=== PATIENT | female | born 1970 | race Two or more races ===

== ENCOUNTER → 2020-07-30 13:58 | Outpatient (BNVA) | payer OTHER, SELFPAY | PROVIDERS: PCP Internal Medicine; Visit Provider Nurse Practitioner | DX: L73.2 Hidradenitis suppurativa (principal); K21.9 Gastro-esophageal reflux disease without esophagitis; K59.04 Chronic idiopathic constipation; R14.0 Abdominal distension (gaseous); Z79.899 Other long term (current) drug therapy | CPT/HCPCS: 99203; 99213 ==

== ENCOUNTER → 2020-08-04 12:39 | Outpatient (BNVA) | payer OTHER, SELFPAY | PROVIDERS: PCP Internal Medicine; Referring Provider Internal Medicine; Visit Provider Internal Medicine | DX: Z01.810 Encounter for preprocedural cardiovascular examination (principal); I25.10 Atherosclerotic heart disease of native coronary artery without angina pectoris; I25.42 Coronary artery dissection; I51.3 Intracardiac thrombosis, not elsewhere classified; I10 Essential (primary) hypertension; E78.5 Hyperlipidemia, unspecified; Z86.73 Personal history of transient ischemic attack (TIA), and cerebral infarction without residual deficits; Z79.82 Long term (current) use of aspirin; Z79.899 Other long term (current) drug therapy | CPT/HCPCS: 93005; 99215 ==

== ENCOUNTER 2020-08-21 07:51 | Day surgery (SDC) | payer OTHER, SELFPAY ==
[2020-08-17 11:37] VITALS: BMI 32.9
--- NOTE | 2020-08-20 09:17 | P.CONAN_ITS ---
Documented by User: Lillian Hale 08/20/20 09:30 HPI - Anesthesia Eval Consult details Narrative: 50yo F for Excision Axillary Hidradenitis Cardiac cleared @ [facility] Past Medical History Medical History (Updated 08/20/20 @ 09:20 by Lillian Hale) Acute angle-closure glaucoma Anxiety and depression Apical mural thrombus Carotid stenosis Cerebrovascular accident, embolic Chronic kidney disease (CKD) stage G3b/A1, moderately decreased glomerular filtration rate (GFR) between 30-44 mL/min/1.73 square meter and albuminuria creatinine ratio less than 30 mg/g Coronary artery disease Coronary artery dissection CVA (cerebral vascular accident) Essential hypertension GERD (gastroesophageal reflux disease) H. pylori infection Hidradenitis suppurativa of right axilla Hypercholesterolemia Hyperlipidemia, unspecified Hypertension Obesity (BMI 30-39.9) Peripheral vascular disease Type 2 diabetes mellitus with hyperglycemia Family History Family History Mother Type 2 diabetes mellitus Hypertension Maternal Grandmother Myocardial infarction Surgical History Surgical History (Updated 08/17/20 @ 11:30 by Agnieszka Landon) Amputation of right index finger History of angioplasty History of cardiac catheterization (~03/30/16) History of endometrial ablation History of esophagogastroduodenoscopy (EGD) History of tubal ligation S/P LILY-BSO Social History Social History Household Members: None Housing: Apartment Alcohol intake: never Smoking Status: Former smoker Advance Directives Information Provided: No service: No Current occupational status: unemployed Meds Allergies Allergy/AdvReac Type Severity Reaction Status Date / Time cephalexin [From KEFLEX] Allergy Intermediate HIVES Verified 08/13/20 08:08 Home Medications Medication Instructions Recorded Confirmed Type sennosides 8.6 mg capsule 17.2 mg PO DAILY cap 07/29/20 08/17/20 History blood sugar diagnostic #10 ea 07/30/20 08/14/20 History dulaglutide 1.5 mg/0.5 mL 1.5 mg SUBCUT QWEEK 07/30/20 08/17/20 History subcutaneous pen injector lancets 33 gauge #100 ea 07/30/20 08/14/20 History amlodipine 10 mg tablet 10 mg PO DAILY 08/04/20 08/17/20 History aspirin 81 mg tablet,delayed 81 mg PO DAILY 08/04/20 08/17/20 History release ezetimibe 10 mg tablet 10 mg PO DAILY 08/04/20 08/17/20 History metoprolol succinate 200 mg 200 mg PO DAILY 08/04/20 08/21/20 History tablet,extended release 24 hr omeprazole 20 mg capsule,delayed 20 mg PO DAILY 08/04/20 08/17/20 History release rosuvastatin 20 mg tablet 20 mg PO BEDTIME 08/04/20 08/17/20 History insulin glargine U-300 conc 300 40 unit SUBCUT DAILY ml 08/14/20 08/17/20 History unit/mL (3 mL) subcutaneous pen dulaglutide [Trulicity] 1 mg SUBCUT QWEEK 08/21/20 08/21/20 History insulin glargine U-300 conc unit SUBCUT 08/21/20 History [Toujeo Max U-300 SoloStar] insulin lispro [Admelog SoloStar 12 - 27 unit SUBCUT TID 08/21/20 08/21/20 History U-100 Insulin] insulin lispro [Admelog SoloStar unit SUBCUT 08/21/20 History U-100 Insulin] Exam Exam Date and Time: August 20, 2020916 Height,Weight and Vital Signs: Height 5 ft 5 in Weight 89.811 kg Pertinent Lab Results Pertinent Lab Results: Laboratory Tests 04/01/20 04/01/20 11:20 11:20 WBC 14.4 H Hgb 13.1 Hct 40.0 Plt Count 282 Sodium 133 L Potassium 4.6 Chloride 102 BUN 28 H Creatinine 1.61 H Narrative Narrative: EKG 08/04/20: NSR, Inferior infarct, Anterolateral infarct ECHO 03/2019: LVEF 55-60%, thinning in apex with dyskinetic motion, area not well seen - no other significant WMA Assessment and Plan Assessment Anesthesia Assessment: Chart Reviewed Documented by User: Mateo Rodríguez 08/21/20 10:24 COUNTS INCLUDE 234 BEDS AT [facility] Past Medical History Medical History (Updated 08/20/20 @ 09:20 by Lillian Hale) Acute angle-closure glaucoma Anxiety and depression Apical mural thrombus Carotid stenosis Cerebrovascular accident, embolic Chronic kidney disease (CKD) stage G3b/A1, moderately decreased glomerular filtration rate (GFR) between 30-44 mL/min/1.73 square meter and albuminuria creatinine ratio less than 30 mg/g Coronary artery disease Coronary artery dissection CVA (cerebral vascular accident) Essential hypertension GERD (gastroesophageal reflux disease) H. pylori infection Hidradenitis suppurativa of right axilla Hypercholesterolemia Hyperlipidemia, unspecified Hypertension Obesity (BMI 30-39.9) Peripheral vascular disease Type 2 diabetes mellitus with hyperglycemia Family History Family History Mother Type 2 diabetes mellitus Hypertension Maternal Grandmother Myocardial infarction Surgical History Surgical History (Updated 08/17/20 @ 11:30 by Agnieszka Landon) Amputation of right index finger History of angioplasty History of cardiac catheterization (~03/30/16) History of endometrial ablation History of esophagogastroduodenoscopy (EGD) History of tubal ligation S/P LILY-BSO Social History Social History Household Members: None Housing: Apartment Alcohol intake: never Smoking Status: Former smoker Advance Directives Information Provided: No service: No Current occupational status: unemployed Meds Allergies Allergy/AdvReac Type Severity Reaction Status Date / Time cephalexin [From KEFLEX] Allergy Intermediate HIVES Verified 08/13/20 08:08 Home Medications Medication Instructions Recorded Confirmed Type sennosides 8.6 mg capsule 17.2 mg PO DAILY cap 07/29/20 08/17/20 History blood sugar diagnostic #10 ea 07/30/20 08/14/20 History dulaglutide 1.5 mg/0.5 mL 1.5 mg SUBCUT QWEEK 07/30/20 08/17/20 History subcutaneous pen injector lancets 33 gauge #100 ea 07/30/20 08/14/20 History amlodipine 10 mg tablet 10 mg PO DAILY 08/04/20 08/17/20 History aspirin 81 mg tablet,delayed 81 mg PO DAILY 08/04/20 08/17/20 History release ezetimibe 10 mg tablet 10 mg PO DAILY 08/04/20 08/17/20 History metoprolol succinate 200 mg 200 mg PO DAILY 08/04/20 08/21/20 History tablet,extended release 24 hr omeprazole 20 mg capsule,delayed 20 mg PO DAILY 08/04/20 08/17/20 History release rosuvastatin 20 mg tablet 20 mg PO BEDTIME 08/04/20 08/17/20 History insulin glargine U-300 conc 300 40 unit SUBCUT DAILY ml 08/14/20 08/17/20 History unit/mL (3 mL) subcutaneous pen dulaglutide [Trulicity] 1 mg SUBCUT QWEEK 08/21/20 08/21/20 History insulin glargine U-300 conc unit SUBCUT 08/21/20 History [Toujeo Max U-300 SoloStar] insulin lispro [Admelog SoloStar 12 - 27 unit SUBCUT TID 08/21/20 08/21/20 History U-100 Insulin] insulin lispro [Admelog SoloStar unit SUBCUT 08/21/20 History U-100 Insulin] Exam Airway Mallampati Class: I TM Dist: >3cm Neck ROM: Full Denture: Upper and Lower Assessment and Plan Assessment Anesthesia Assessment: Anesthesia Plan Discussed and Chart Reviewed Final Anesthetic Review NPO: Yes ASA Class: IV Final Preanesthetic Review: No Changes in Pt Med Stat, Meds/Allgs Chart Reviewed, Consent Obtained/Reviewed and Anes Risks/Benef Reviewed Patient Risk: High Procedure Risk: Intermediate Anesthetic Plan Anesthetic Plan: GA and Agree w/ Assess. and Plan Disposition: Standard PACU
[2020-08-21 08:48] LABS: Glucose, Whole Blood 168 mg/dL (60-115)
[2020-08-21] MEDS: Lactated Ringers 1,000 ML 50 ML IVCONT (08:54)
[2020-08-21 08:57] VITALS: BP 155/85; PULSE 74; RESP 18; TEMP 36.3; O2SAT 99
[2020-08-21] MEDS: ceFAZolin Sodium/Dextrose,Iso 2 GM/50 ML PIGGYBACK IV (09:05)
--- NOTE | 2020-08-21 10:07 | MHC.SHP ---
Pre-Procedural Eval Section B Chief Complaint: Hidradenitis Suppurativa Allergies: Allergies Allergy/AdvReac Type Severity Reaction Status Date / Time cephalexin [From KEFLEX] Allergy Intermediate HIVES Verified 08/13/20 08:08 Plan Patient has been examined and remains a candidate for the planned procedure
[2020-08-21 11:26] VITALS: BP 158/85; PULSE 72; RESP 16; TEMP 36.7; O2SAT 99
--- NOTE | 2020-08-21 11:27 | PM.OP ---
Brief Operative Note Date of Service: 08/21/20 Pre-op diagnosis: hidradenitis right axilla Procedure: excision of hidradenits right axilla Surgeon: Ron Small MD Anesthesia: GLMA Estimated blood loss (mL): 20 Pathology: other (hidradenitis) Condition: stable Disposition: PACU
[2020-08-21 11:31] VITALS: BP 165/88; PULSE 75; RESP 18; O2SAT 98
[2020-08-21 11:36] VITALS: BP 158/80; PULSE 68; RESP 16; O2SAT 98
[2020-08-21 11:41] VITALS: BP 168/90; PULSE 67; RESP 18; O2SAT 96
[2020-08-21] MEDS: oxyCODONE HCl Immed Release 5 MG TABLET PO (11:45)
[2020-08-21] MEDS: Acetaminophen 325 MG TABLET 650 MG PO (11:45)
[2020-08-21] MEDS: Ketorolac Tromethamine 15 MG/ML VIAL IVPUSH (11:49)
[2020-08-21 11:56] VITALS: BP 171/90; PULSE 71; RESP 16; TEMP 36.7; O2SAT 97
--- NOTE | 2020-08-21 20:07 | OP_ITS ---
SURGEON: Ron Smlal MD INDICATIONS: The patient is a 50-year-old female with multiple areas of recurrent pain, swelling and drainage on the right axilla consistent with hidradenitis suppurativa. Examination revealed a wide area of induration with multiple sinuses. They were seemed to be 3 areas that were confluent and separate from each other. In order to save skin and allow primary closure, I intended to excise this wide area separately. She understood technique of procedure. She is aware of the risks, benefits, and alternatives. PREOPERATIVE DIAGNOSIS: Hidradenitis suppurativa, right axilla. POSTOPERATIVE DIAGNOSIS: Hidradenitis suppurativa, right axilla. PROCEDURE PERFORMED: Excision of hidradenitis suppurativa, right axilla. ESTIMATED BLOOD LOSS: COMPLICATIONS: ANESTHESIA: ASSISTANTS: SPECIMENS: DESCRIPTION OF PROCEDURE: She was brought to the operating room, placed supine on the table under general anesthesia via laryngeal mask airway. The right arm was abducted and taped away from the axilla to allow good exposure. The breast was also taped and retracted away from the axilla itself. The right axilla was prepped and draped in usual sterile fashion. A surgical time-out was done. The patient received cefazolin 2 g IV preoperatively. I marked planned line of incision on 3 different areas. I used lidocaine 1% infiltrated the entire area. I made my incision on the smallest area of induration using blade #15, it was carried down to full-thickness skin and subcutaneous fat to excise the entire the skin and subcutaneous layer. This sent as specimen. First area was about 2 cm in length and about 1.5 cm in width. I then made an incision in the skin on the 2nd area of induration using blade #15, it was carried down to full-thickness skin and subcutaneous fat using electrocautery. We excised the entire skin and subcutaneous fat and this was sent as specimen. This included the multiple sinuses. This area was about 6 cm long and about 3.5 cm wide. The third area adjacent to this was more medial and was about 5.5 cm long x 3 cm wide and it also excised in the same manner. We excised all the gross looking indurated skin and subcutaneous tissue. We copiously irrigated all 3 areas of excision. I closed all incisions with multiple nylon 3-0 interrupted sutures with some vertical mattress sutures to allow eversion. On the bigger incisions, I had reapposed the deep subcutaneous layer with Dexon 3-0 interrupted suture. We had made sure that there was hemostasis prior to closure. We infiltrated the entire area with Marcaine 0.5% for postop analgesia. Thick dressings were applied. The procedure was completed. The patient tolerated the procedure well. There were no complications noted. Initial and final counts of sponges and instruments were correct. Estimated blood loss about 20 mL. The patient was extubated without difficulty and transferred to recovery room with stable vital signs. MD JUN Vyas/RADHA / [id number]
== END 2020-08-21 12:51 | disposition home or self-care (01) ==
PROVIDERS: PCP Internal Medicine; Visit Provider Surgery
PROC: (CPT 11450; principal; 2020-08-21 10:40)
DX: L73.2 Hidradenitis suppurativa (principal); L72.0 Epidermal cyst; E11.22 Type 2 diabetes mellitus with diabetic chronic kidney disease; I12.9 Hypertensive chronic kidney disease with stage 1 through stage 4 chronic kidney disease, or unspecified chronic kidney disease; N18.32 Chronic kidney disease, stage 3b; Z88.1 Allergy status to other antibiotic agents; Z86.73 Personal history of transient ischemic attack (TIA), and cerebral infarction without residual deficits; Z87.891 Personal history of nicotine dependence; Z79.4 Long term (current) use of insulin; Z79.899 Other long term (current) drug therapy
CPT/HCPCS: 11450; 82947; 88305; J0690; J1885; J2250; J3010

== ENCOUNTER → 2020-09-02 09:21 | Outpatient (BNVA) | payer OTHER, SELFPAY | PROVIDERS: PCP Internal Medicine; Visit Provider Surgery | DX: L73.2 Hidradenitis suppurativa (principal) | CPT/HCPCS: 99212 ==

== ENCOUNTER 2020-09-09 12:25 | Outpatient (REF) | payer OTHER, SELFPAY ==
[2020-09-09 14:10] LABS: Anion Gap 15 (12-20); Blood Urea Nitrogen 34 mg/dL (9-16); Carbon Dioxide 19 mmol/L (22-29); Chloride 105 mmol/L (96-108); Estimated Glomerular Filt Rate 33; Potassium 4.5 mmol/l (3.3-5.1); Sodium 134 mmol/L (135-145)
[2020-09-09 15:15] LABS: Total Protein Urine Random 541 mg/dL (<12)
[2020-09-09 15:41] LABS: Creatinine Urine 117.63 mg/dL
[2020-09-09 15:43] LABS: Renal w Reflex Lab Use Only Order verified
== END 2020-09-09 12:26 | disposition home or self-care (01) ==
LOC: HO.LAB 12:25
PROVIDERS: PCP Internal Medicine; Visit Provider Internal Medicine Hypertension Specialist
DX: E11.22 Type 2 diabetes mellitus with diabetic chronic kidney disease (principal); I12.9 Hypertensive chronic kidney disease with stage 1 through stage 4 chronic kidney disease, or unspecified chronic kidney disease; N18.9 Chronic kidney disease, unspecified; D63.1 Anemia in chronic kidney disease
CPT/HCPCS: 80051; 82565; 84156; 84520

== ENCOUNTER → 2020-09-10 12:48 | Outpatient (BNVA) | payer OTHER, SELFPAY | PROVIDERS: PCP Internal Medicine; Referring Provider Internal Medicine; Visit Provider Nurse Practitioner | DX: Z76.89 Persons encountering health services in other specified circumstances (principal) ==

== ENCOUNTER → 2020-09-14 09:22 | Outpatient (BNVA) | payer OTHER, SELFPAY | PROVIDERS: PCP Internal Medicine; Referring Provider Internal Medicine; Visit Provider Surgery | DX: L73.2 Hidradenitis suppurativa (principal) | CPT/HCPCS: 99212 ==

== ENCOUNTER → 2020-09-21 12:25 | Outpatient (BNVA) | payer OTHER, SELFPAY | PROVIDERS: PCP Internal Medicine; Visit Provider Orthopaedic Surgery | DX: M75.01 Adhesive capsulitis of right shoulder (principal); Z87.891 Personal history of nicotine dependence | CPT/HCPCS: 99202 ==

== ENCOUNTER 2020-10-05 11:10 | Emergency (ER) | payer OTHER, SELFPAY ==
[2020-10-05 11:16] VITALS: BP 149/83; PULSE 77; RESP 18; TEMP 36.9; O2SAT 97; BMI 32.1
== END 2020-10-05 18:44 | disposition left against medical advice (07) ==
LOC: HO.ED 18:43
PROVIDERS: Emergency Provider Emergency Medicine Emergency Medical Services; PCP Internal Medicine
DX: R10.32 Left lower quadrant pain (principal)
CPT/HCPCS: 99281; 99282

== ENCOUNTER 2020-10-07 09:32 | Outpatient (REF) | payer OTHER, SELFPAY ==
[2020-10-07 11:08] LABS: MANUAL DIFF FLAG NO
[2020-10-07 11:19] LABS: Basophils Percent Auto 0.4 % (0-2); Eosinophils Absolute Auto 0.1 X10*3/uL (0.0-0.4); Eosinophils Percent Auto 0.9 % (0-4); Hematocrit 41.7 % (37-47); Hemoglobin 13.6 g/dl (12.0-16.0); Imm Gran Abs Auto 0.03 X10*3/uL (0.00-0.03); Imm Gran Pct Auto 0.3 % (0.0-0.4); Lymphocytes Absolute Auto 2.6 X10*3/uL (1.2-4.9); Lymphocytes Percent Auto 26.8 % (20-40); Mean Corpuscular HGB Conc 32.6 g/dl (31.0-35.0); Mean Corpuscular Hemoglobin 26.6 pg (27.0-33.0); Mean Corpuscular Volume 81.4 fL (80-98); Mean Platelet Volume 11.5 fL (9.4-12.3); Monocytes Absolute Auto 0.8 X10*3/uL (0.1-1.2); Monocytes Percent Auto 7.8 % (2-11); Neutrophils Absolute Auto 6.1 X10*3/uL (2.0-8.3); Neutrophils Percent Auto 63.8 % (45-73); Platelet Count 269 X10*3/uL (160-400); Red Blood Count 5.12 X10*6/uL (4.20-5.50); Red Cell Distribution Width 14.1 % (11.0-16.0); White Blood Count 9.6 X10*3/uL (4.8-10.8)
[2020-10-07 11:54] LABS: Alanine Aminotransferase 24 U/L (0-31); Albumin Level 3.8 g/dL (3.5-5.0); Alkaline Phosphatase 83 U/L (39-117); Anion Gap 13 (12-20); Aspartate Amino Transferase 17 U/L (5-31); Bilirubin Total 0.3 mg/dL (0.0-1.0); Blood Urea Nitrogen 35 mg/dL (9-16); Calcium 9.2 mg/dL (8.4-10.2); Carbon Dioxide 21 mmol/L (22-29); Chloride 105 mmol/L (96-108); Cholesterol 144 mg/dL; Estimated Glomerular Filt Rate 31; Glucose Random 267 mg/dL (60-115); HDL Cholesterol 42 mg/dL; LDL Cholesterol Calculated 76 mg/dl; Potassium 4.8 mmol/l (3.3-5.1); Sodium 134 mmol/L (135-145); Total Protein 7.1 g/dL (6.5-8.0); Triglycerides 132 mg/dL
[2020-10-07 11:58] LABS: Free T4 (Free Thyroxine) 0.97 ng/dL (0.71-1.85); Thyroid Stimulating Hormone 1.02 uIU/mL (0.32-4.0)
[2020-10-07 12:28] LABS: Creatinine Urine 134.03 mg/dL
[2020-10-07 13:03] LABS: Protein/Creatinine Ratio, Ur 4.05 (<0.2); Total Protein Urine Random 536 mg/dL (<12)
[2020-10-08 08:58] LABS: LDL Cholesterol Direct 72 mg/dL (<100)
== END 2020-10-07 09:33 | disposition home or self-care (01) ==
LOC: HO.LAB 09:32
PROVIDERS: Internal Medicine Endocrinology, Diabetes & Metabolism; PCP Internal Medicine; Visit Provider Internal Medicine
DX: E78.5 Hyperlipidemia, unspecified (principal); E11.65 Type 2 diabetes mellitus with hyperglycemia
CPT/HCPCS: 36415; 80053; 80061; 82043; 83721; 84156; 84439; 84443; 85025

== ENCOUNTER 2020-10-08 09:29 | Outpatient (REF) | payer OTHER, SELFPAY ==
--- NOTE | 2020-10-08 09:30 | EMG_ITS ---
Bilateral median and ulnar motor and sensory studies were performed. Bilateral radial sensory studies were performed and paraspinal muscles were tested with a needle. IMPRESSION: 1. [id number] bilateral median neuropathy across carpal tunnel. 2. Mild bilateral ulnar neuropathy across cubital tunnel. 3. Left Werner-Ceci anastomosis, normal variant. 4. Underlying axonal peripheral neuropathy. MD CORDELL Mckeon/RADHA / [id number]
== END 2020-10-08 09:30 | disposition home or self-care (01) ==
LOC: HO.NEURO 09:29
PROVIDERS: PCP Internal Medicine; Visit Provider Internal Medicine
DX: R20.0 Anesthesia of skin (principal)
CPT/HCPCS: 95860; 95911

== ENCOUNTER → 2020-10-13 09:18 | Outpatient (BNVA) | payer OTHER, SELFPAY | PROVIDERS: PCP Internal Medicine; Referring Provider Internal Medicine; Visit Provider Internal Medicine Endocrinology, Diabetes & Metabolism | DX: Z76.89 Persons encountering health services in other specified circumstances (principal) ==

== ENCOUNTER 2020-10-21 10:00 | Outpatient (RCR) | payer OTHER, SELFPAY ==
--- NOTE | 2020-11-24 14:53 | MHC.PT.DC ---
[facility] [place] Office [place] Office [place] Office [address] Shyanne Henry [address] [phone] F: [phone] F: [phone] F: [phone] F: [phone] Physical Therapy Discharge Report Diagnosis: right shoulder Pain Date of Surgery: Date of Evaluation: 10/05/20 Date of Discharge: 11/24/20 Treatments to Date: 6 Cancellations to Date: 0 No Shows to Date: 0 Discharge Status: Patient Elected to Stop Discharge Summary: Pt d/c self from therapy as she was undergoing some surgery near her arm pit region. Electronically signed by: Annette Madrigal DPT Please sign and return to therapist. Thank you for your referral.
== END 2020-11-24 14:53 | disposition other institution (70) ==
LOC: HO.PT 10:00
PROVIDERS: PCP Internal Medicine; Visit Provider Orthopaedic Surgery
DX: M75.01 Adhesive capsulitis of right shoulder (principal)
CPT/HCPCS: 97110; 97112; 97140; 97163

== ENCOUNTER → 2020-10-26 13:35 | Outpatient (BNVA) | payer OTHER, SELFPAY | PROVIDERS: PCP Internal Medicine; Visit Provider Nurse Practitioner ==

== ENCOUNTER → 2020-11-02 11:39 | Outpatient (BNVA) | payer OTHER, SELFPAY | PROVIDERS: PCP Internal Medicine; Visit Provider Surgery | DX: L73.2 Hidradenitis suppurativa (principal) | CPT/HCPCS: 99212 ==

== ENCOUNTER → 2020-11-12 15:28 | Outpatient (BNVA) | payer OTHER, SELFPAY | PROVIDERS: PCP Internal Medicine; Visit Provider Surgery | DX: L73.2 Hidradenitis suppurativa (principal) | CPT/HCPCS: 99212 ==

== ENCOUNTER → 2020-11-19 14:03 | Outpatient (BNVA) | payer OTHER, SELFPAY | PROVIDERS: Visit Provider Surgery | DX: L73.2 Hidradenitis suppurativa (principal) | CPT/HCPCS: 99212 ==

== ENCOUNTER → 2020-11-20 08:22 | Outpatient (REF) | payer OTHER, SELFPAY ==
--- NOTE | ~2020-11-20 | NM_ITS ---
EXAMINATION: RADIONUCLIDE SOLID FOOD GASTRIC EMPTYING 4-HOUR STUDY CLINICAL INFORMATION: Nausea, diabetes, GERD, bloating. COMPARISON: No previous gastric emptying study is available for comparison. TECHNIQUE: A standard meal consisting of 4 oz of Egg Beaters brand equivalent tagged was 1.0 mCi Tc-99m Sulfur Colloid, 8 oz water and 2 slices of toast with jelly was administered orally to the patient. Images were obtained using a dual head gamma camera in the anterior and posterior projections over of the stomach immediately post ingestion and at hourly intervals up to 4 hours post ingestion. The anterior and posterior counts at each time interval were averaged using the geometric mean and expressed as percentage of the immediate post ingestion counts. FINDINGS: There is good visualization of activity in the stomach immediately post ingestion. As the study progresses, there is good clearance of activity from the stomach and visualization of progressively increasing small bowel activity. At the end of the study at 4 hours, there is minimal abnormal retention of activity in the stomach. Retention in the stomach at each time interval was: 1 hour 59% (normal 37%-90%) 2 hours 24% (normal 30%-60%) 3 hours 18% 4 hours 11% (normal 0%-10%) NM/NM gastric emptying study IMPRESSION: Abnormal study. There is minimal abnormal retention of solid food in the stomach at 4 hours.
== END ==
LOC: HO.NUCMED 08:22
PROVIDERS: Visit Provider Internal Medicine Endocrinology, Diabetes & Metabolism
DX: E11.65 Type 2 diabetes mellitus with hyperglycemia (principal); Z79.4 Long term (current) use of insulin
CPT/HCPCS: 78264; A9541

== ENCOUNTER 2020-11-27 09:11 | Day surgery (SDC) | payer OTHER, SELFPAY ==
[2020-11-20 15:04] VITALS: BMI 31.6
--- NOTE | 2020-11-26 09:06 | P.CONAN_ITS ---
Documented by User: Lillian Hale 11/26/20 12:01 HPI - Anesthesia Eval Consult details Narrative: 50yo F for Excision of Axilliary Hidradenitis Cardiac cleared @ [facility] s/p Right hidradenitis with GA-LMA 3 08/2020 [facility] Active Problems Active Problems: All Active Problems (Updated 11/20/20 @ 15:00 by Louann Cespedes) Calcific tendinitis of right shoulder (Acute) Back pain (Acute) Carpal tunnel syndrome on both sides (Acute) Chronic idiopathic constipation (Acute) Insomnia (Acute) Axillary hidradenitis suppurativa (Acute) Proliferative diabetic retinopathy associated with type 2 diabetes mellitus (Acute) Diabetic polyneuropathy associated with type 2 diabetes mellitus (Acute) Diabetic nephropathy associated with type 2 diabetes mellitus (Acute) intermediate (current) use of insulin (Acute) Adhesive capsulitis of right shoulder (Acute) Hyperlipidemia, unspecified (Acute) Essential hypertension (Acute) Cerebrovascular accident, embolic (Acute) Apical mural thrombus (Acute) Coronary artery dissection (Acute) Hidradenitis suppurativa of right axilla (Acute) GERD (gastroesophageal reflux disease) (Acute) Hypertension (Acute) Coronary artery disease (Acute) Hypercholesterolemia (Acute) Obesity (BMI 30-39.9) (Acute) Type 2 diabetes mellitus with hyperglycemia (Acute) Chronic kidney disease (CKD) stage G3b/A1, moderately decreased glomerular donny tration rate (GFR) between 30-44 mL/min/1.73 square meter and albuminuria creatinine ratio less than 30 mg/g (Acute) Past Medical History Medical History (Updated 11/27/20 @ 11:08 by Bria Maldonado) 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 Obesity (BMI 30-39.9) On beta jacqueline at home Peripheral vascular disease Proliferative diabetic retinopathy associated with type 2 diabetes mellitus Type 2 diabetes mellitus with hyperglycemia Family History Family History Mother Type 2 diabetes mellitus Hypertension Maternal Grandmother Myocardial infarction Surgical History Surgical History Amputation of right index finger History of angioplasty History of axillary surgery (08/21/20) History of cardiac catheterization (~03/30/16) History of endometrial ablation History of esophagogastroduodenoscopy (EGD) History of tubal ligation S/P LILY-BSO Social History Social History Household Members: None Housing: Apartment Are you a primary workforce investment act career manager to a significant other at home: No Do you presently have visiting nurse or other home services: No Alcohol intake: never Smoking Status: Former smoker Smoked in Last 30 Days: No Use of substances other than those prescribed or required for medical reasons: No Have you been hit, kicked, punched, or otherwise hurt by someone within the past year? If so, by whom?: No Advance Directives: No Advance Directives Information Provided: No Advance Directives on File: No Recently lost weight without trying: No service: No Current occupational status: unemployed Current occupation: right handed Meds Allergies Allergy/AdvReac Type Severity Reaction Status Date / Time cephalexin [From KEFLEX] Allergy Intermediate HIVES Verified 11/27/20 09:41 Home Medications Medication Instructions Recorded Confirmed Last Taken Type sennosides 8.6 mg capsule 17.2 mg PO DAILY cap 07/29/20 11/20/20 Unknown History blood sugar diagnostic #10 ea 07/30/20 11/19/20 Unknown History lancets 33 gauge #100 ea 07/30/20 11/19/20 Unknown History aspirin 81 mg tablet,delayed 81 mg PO DAILY 08/04/20 11/20/20 11/26/20 12:00 History release ezetimibe 10 mg tablet 10 mg PO DAILY 08/04/20 11/20/20 Unknown History alcohol swabs pad TOPICAL 10/13/20 11/19/20 Unknown History dulaglutide [Trulicity] 1 mg SUBCUT QWEEK 11/20/20 11/20/20 11/27/20 07:45 History Exam Exam Date and Time: November 26, 2020 09 Height,Weight and Vital Signs: Height 5 ft 6 in Weight 88.989 kg Pertinent Lab Results Pertinent Lab Results: Laboratory Tests 10/07/20 10/07/20 10:05 10:05 WBC 9.6 Hgb 13.6 Hct 41.7 Plt Count 269 Sodium 134 L Potassium 4.8 Chloride 105 Carbon Dioxide 21 L BUN 35 H Creatinine 1.72 H Narrative Narrative: EKG 08/04/20: NSR, Inferior infarct, Anterolateral infarct ECHO 03/2019: LVEF 55-60%, thinning in apex with dyskinetic motion, area not well seen - no other significant WMA Assessment and Plan Assessment Anesthesia Assessment: Chart Reviewed Documented by User: Bria Maldonado 11/27/20 11:09 [facility] Past Medical History Medical History (Updated 11/27/20 @ 11:08 by Bria Maldonado) 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 pylori infection Hidradenitis suppurativa of right axilla Hypercholesterolemia Hyperlipidemia, unspecified Hypertension intermediate (current) use of insulin Obesity (BMI 30-39.9) On beta jacqueline at home Peripheral vascular disease Proliferative diabetic retinopathy associated with type 2 diabetes mellitus Type 2 diabetes mellitus with hyperglycemia Family History Family History Mother Type 2 diabetes mellitus Hypertension Maternal Grandmother Myocardial infarction Family history of problems with anesthesia: No Surgical History Surgical History Amputation of right index finger History of angioplasty History of axillary surgery (08/21/20) History of cardiac catheterization (~03/30/16) History of endometrial ablation History of esophagogastroduodenoscopy (EGD) History of tubal ligation S/P LILY-BSO History of Problems with Anesthesia: No Social History Social History Household Members: None Housing: Apartment Are you a primary workforce investment act career manager to a significant other at home: No Do you presently have visiting nurse or other home services: No Alcohol intake: never Smoking Status: Former smoker Smoked in Last 30 Days: No Use of substances other than those prescribed or required for medical reasons: No Have you been hit, kicked, punched, or otherwise hurt by someone within the past year? If so, by whom?: No Advance Directives: No Advance Directives Information Provided: No Advance Directives on File: No Recently lost weight without trying: No service: No Current occupational status: unemployed Current occupation: right handed Meds Allergies Allergy/AdvReac Type Severity Reaction Status Date / Time cephalexin [From KEFLEX] Allergy Intermediate HIVES Verified 11/27/20 09:41 Home Medications Medication Instructions Recorded Confirmed Last Taken Type sennosides 8.6 mg capsule 17.2 mg PO DAILY cap 07/29/20 11/20/20 Unknown History blood sugar diagnostic #10 ea 07/30/20 11/19/20 Unknown History lancets 33 gauge #100 ea 07/30/20 11/19/20 Unknown History aspirin 81 mg tablet,delayed 81 mg PO DAILY 08/04/20 11/20/20 11/26/20 12:00 History release ezetimibe 10 mg tablet 10 mg PO DAILY 08/04/20 11/20/20 Unknown History alcohol swabs pad TOPICAL 10/13/20 11/19/20 Unknown History dulaglutide [Trulicity] 1 mg SUBCUT QWEEK 11/20/20 11/20/20 11/27/20 07:45 History Exam Height,Weight and Vital Signs: Vital Signs Temp Pulse Resp BP Pulse Ox 11/27/20 09:41 97.9 F 70 20 137/82 96 Pertinent Lab Results Pertinent Lab Results: Lab Results 11/27/20 Range/Units 10:00 POC Glucose 188 H (60-115) mg/dL 11/27/2020: 12 lead EKG NSR.64 Inf and anterolateral infarcts. No change c/w 08/04/2020 Airway Mallampati Class: II TM Dist: >3cm Neck ROM: Full Denture: Upper and Lower Heart: RRR Lungs: CTAB Assessment and Plan Assessment Anesthesia Assessment: Anesthesia Plan Discussed and Chart Reviewed Final Anesthetic Review NPO: Yes ASA Class: III Final Preanesthetic Review: No Changes in Pt Med Stat, Meds/Allgs Chart Reviewed, Consent Obtained/Reviewed and Anes Risks/Benef Reviewed Patient Risk: Intermediate Assessment/Block/Sedation in SS: Assess/Block/Sedation-SS Anesthetic Plan Anesthetic Plan: GA Disposition: Standard PACU
[2020-11-27] VITALS (11 sets, daily range): BP systolic 131–154; BP diastolic 56–86; PULSE 64–74; RESP 16–20; TEMP 36.1–36.6; O2SAT 96–100
--- NOTE | 2020-11-27 | ECG_ITS ---
Test Reason : ABN EKG Blood Pressure : / mmHG Vent. Rate : 064 BPM Atrial Rate : 064 BPM P-R Int : 128 ms QRS Dur : 088 ms QT Int : 428 ms P-R-T Axes : 027 -16 102 degrees QTc Int : 441 ms Normal sinus rhythm Inferior infarct (cited on or before 17-SEP-2016) Anterolateral infarct (cited on or before 17-SEP-2016) Abnormal ECG When compared with ECG of 01-APR-2020 11:21, No significant change was found Referred By: Bria Maldonado Electronically Signed By:Liam Sahu
[2020-11-27] MEDS: Lactated Ringers 1,000 ML 50 ML IVCONT (09:58)
[2020-11-27 10:05] LABS: Glucose, Whole Blood 188 mg/dL (60-115)
--- NOTE | 2020-11-27 10:33 | MHC.SHP ---
Pre-Procedural Eval Section B Chief Complaint: Axillary hidradenitis suppurativa Allergies: Allergies Allergy/AdvReac Type Severity Reaction Status Date / Time cephalexin [From KEFLEX] Allergy Intermediate HIVES Verified 11/27/20 09:41 Plan I have reviewed the history and physical and performed a pertinent physical examination on my patient. No changes have occurred unless specified.
--- NOTE | 2020-11-27 11:45 | P.OP_ITS ---
Operative Note Operative Note Date of Service: 11/27/20 Narrative: Preop diagnosis: Hidradenitis suppurativa, left axilla Postop diagnosis: The same Procedure: Excision of hidradenitis suppurativa, left axilla Surgeon: Ron Small MD offset assistant press operator: BEATRICE Garner The patient is a 50-year-old female with recurrent swelling and drainage on an area of the left axilla consistent with hidradenitis suppurativa. She wanted to proceed with excision. She understood the technique of this procedure as well as the risks, benefits and alternatives. She was brought to the operative room and placed supine on table under general anesthesia via laryngeal mask airway. The left arm was abducted to expose the axilla. The skin adjacent to the axilla near the breast and the upper arm were retracted away from the axilla itself with wide tape. The area of the left axilla was then prepped and draped in usual sterile fashion. A surgical time- out was done. The patient received cefazolin 2 g IV preoperatively I marked a planned line of incision using a pen and infiltrated this with lidocaine 1%. I made the incision using a blade 15. This was carried down to the full-thickness of the skin and subcutaneous fat. I included all indurated areas and sinuses on the skin with the specimen. I extended the incision down to the deep subcutaneous layer to excise the entire indurated areas. This was done with electrocautery. I proceeded to continue to dissect until all the diseased skin and subcutaneous tissue was removed. The length of the incision was about 11 cm. Perpendicular to this, we had extended the incision by 3.5 cm. This was there for a T-shaped incision. The width of the main incision was about 4 cm. I irrigated the area of excision. I then reapposed the deep subcutaneous layer with multiple Dexon 3-0 interrupted sutures. This was achieved without tension. Skin closure achieved with nylon 3 0 simple interrupted sutures alternating with vertical mattress sutures. Dressings were applied. The incision was infiltrated with Marcaine 0.5% for postop analgesia and the procedure was completed The patient tolerated the procedure well. There were no complications noted. Initial and final counts of sponges and instruments were correct. Estimated blood loss about 5 cc. The patient was extubated without difficulty and transferred to the recovery room with stable vital signs.
--- NOTE | 2020-11-27 11:52 | PM.OP ---
Brief Operative Note Date of Service: 11/27/20 Pre-op diagnosis: Hidradenitis suppurativa left axilla Post-op diagnosis: same Procedure: Excision of hidradenitis suppurativa left axilla Surgeon: Ron Small MD Anesthesia: [facility] Internship: Raissa Garner Estimated blood loss (mL): 5 Pathology: other (Hidradenitis) Condition: stable Disposition: PACU
[2020-11-27] MEDS: fentaNYL citrate/PF 100 MCG/2 ML VIAL 25 MCG IVPUSH ×4 (12:16→12:40)
[2020-11-27] MEDS: oxyCODONE HCl Immed Release 5 MG TABLET PO (12:25)
== END 2020-11-27 14:10 | disposition home or self-care (01) ==
PROVIDERS: PCP Internal Medicine; Visit Provider Surgery
PROC: (CPT 11450; principal; 2020-11-27 11:00)
DX: L73.2 Hidradenitis suppurativa (principal); E11.22 Type 2 diabetes mellitus with diabetic chronic kidney disease; I12.9 Hypertensive chronic kidney disease with stage 1 through stage 4 chronic kidney disease, or unspecified chronic kidney disease; N18.2 Chronic kidney disease, stage 2 (mild); E11.21 Type 2 diabetes mellitus with diabetic nephropathy; E11.3599 Type 2 diabetes mellitus with proliferative diabetic retinopathy without macular edema, unspecified eye; E11.42 Type 2 diabetes mellitus with diabetic polyneuropathy; Z79.4 Long term (current) use of insulin; Z79.899 Other long term (current) drug therapy; Z79.82 Long term (current) use of aspirin; Z86.73 Personal history of transient ischemic attack (TIA), and cerebral infarction without residual deficits; Z88.1 Allergy status to other antibiotic agents; Z87.891 Personal history of nicotine dependence
CPT/HCPCS: 11450; 82947; 88305; 93005; J0690; J2250; J2370; J2405; J3010

== ENCOUNTER → 2020-12-09 10:12 | Outpatient (BNVA) | payer OTHER, SELFPAY | PROVIDERS: PCP Internal Medicine; Visit Provider Surgery | DX: Z48.817 Encounter for surgical aftercare following surgery on the skin and subcutaneous tissue (principal) | CPT/HCPCS: 99212 ==

== ENCOUNTER 2021-01-07 10:57 | Outpatient (REF) | payer OTHER, SELFPAY ==
[2021-01-07 15:15] LABS: SARS COV2 PCR INHOUSE NEGATIVE (Negative)
== END 2021-01-07 10:58 | disposition home or self-care (01) ==
LOC: HO.LAB 10:57
PROVIDERS: Visit Provider Internal Medicine
DX: Z20.822 Contact with and (suspected) exposure to COVID-19 (principal)
CPT/HCPCS: C9803; U0003

== ENCOUNTER → 2021-02-03 07:54 | Outpatient (REF) | payer OTHER, SELFPAY ==
--- NOTE | 2021-02-03 08:06 | CA_ITS ---
Transthoracic Echocardiogram Patient (Last, First, Middle): Phoebe Ruelas, Gender: Female Date of : 1970 Age: 50 Procedure Date: 02/03/2021 Procedure Type: Transthoracic Echocardiogram Location: OP Height: 167.64 cm Weight: 94.35 kg BSA: 2.03 m2 Heart Rate: bpm BP: 146 / 78 mmHg Talk Show Host: JOSE MARIA Barriga MD: Zander May MD Property Investor: Ruel Milton MD Symptoms: I51.3 - Intracardiac thrombosis, not elsewhere classified Study Quality: Fair ECG Rhythm: Sinus Conclusions: - 1. Normal LV systolic function, apex is not well visualized with normal filling pattern 2. Normal cardiac valvular Doppler 3. Normal RV systolic pressure 4. No pericardial effusion Findings Left Ventricle Normal left ventricular size, thickness, and systolic function. The visually estimated ejection fraction is between 60-65%. Regional wall motion abnormalities can not be excluded due to suboptimal endocardial definition. Spectral Doppler is indicative of a normal filling pattern. Right Ventricle Normal right ventricular cavity size and systolic function. Atria The left atrium is normal in size. Interatrial shunt cannot be excluded. The right atrium is normal in size. Aortic Valve The aortic valve structure and function is likely normal. There is no aortic valve stenosis. There is no aortic valve regurgitation. Pulmonic Valve The pulmonic valve was not well visualized. Tricuspid Valve Likely normal tricuspid valve structure and function. There is trace tricuspid valve regurgitation. The right ventricular systolic pressure is normal. Normal right atrial pressure. There is no evidence of pulmonary hypertension. Great Vessels All visible segments of the aorta are normal in size. The pulmonary artery was not well visualized. Venous The inferior vena cava is normal in size and collapses greater than 50% with inspiration. Pericardium/Pleural There is no evidence of pericardial effusion. Measurements 2D Linear Measurements RVIDd: 2.45 RVIDd Index: 1.21 IVSd: 1.12 0.6-0.9/0.6-1.0 cm LVIDd: 4.76 3.9-5.3/4.2-5.9 cm LVIDd Index: 2.34 2.4-3.2/2.2-3.1 cm/m2 LVIDs: 3.09 2.0-3.6 cm LVPWd: 1.12 0.7-1.1 cm Ao Root: 2.70 2.1-3.5 cm LA Diam: 3.80 2.7-3.8/3.0-4.0 cm LAIDs Index: 1.87 1.5-2.3 cm/m2 LV Mass: 244.56 67-162/88-224 g LV Mass Index: 120.47 43-95/49-115 g/m2 LVOT Diam: 2.10 3.0+(-)1.3 cm Mitral Valve MV Pk E: 1.05 MV PK A: 0.89 MV Decel Time: 240.00 E/A: 1.20 E'Lateral: 6.05 E'Medial: 3.86 E/E' Med: 27.20 E/E' Lat: 17.40 PHT: 70.00 MVA PHT: 3.14 Decel [place]: 4.38 Aortic Valve AoV Pk James: 1.33 AoV Mn James: 1.07 AoV VTI: 0.32 AoV Pk Grad: 7.00 Aov Mn Grad: 5.00 MARSHAL Cont.VTI: 2.48 LVOT LVOT Pk James: 0.99 LVOT Mn James: 0.66 LVOT VTI: 0.23 LVOT Pk Grad: 4.00 LVOT Mn Grad: 2.00 LVOT Diam: 2.10 LVOT Area: 3.46 Diastolic Function MV Pk E: 1.05 MV Pk A: 0.89 E/A: 1.20 E'Medial: 3.86 E/E' Med: 27.20 E' Laterial: 6.05 E/E' Lat: 17.40 Tricuspid Valve TR Pk James: 2.51 TR Pk Grad: 25.00 RA Press: 3.00 RVSP: 28.00 Great Vessels Aorta Ao Root-2D: 2.70 2.0-3.7 cm Ao Asc: 3.00 2.1-3.4 cm Ao Arch: 2.60 Updated in Other Vendor System with Status of Final Ruel Milton MD electronically signed on 02/03/2021 4:06:13 PM with status of Final
[2021-02-03 08:56] LABS: MANUAL DIFF FLAG NO
[2021-02-03 09:00] LABS: Basophils Absolute Auto 0.1 X10*3/uL (0.0-0.2); Basophils Percent Auto 0.5 % (0-2); Eosinophils Absolute Auto 0.1 X10*3/uL (0.0-0.4); Hematocrit 40.9 % (37-47); Hemoglobin 13.3 g/dl (12.0-16.0); Imm Gran Abs Auto 0.04 X10*3/uL (0.00-0.03); Imm Gran Pct Auto 0.4 % (0.0-0.4); Lymphocytes Absolute Auto 2.4 X10*3/uL (1.2-4.9); Lymphocytes Percent Auto 23.8 % (20-40); Mean Corpuscular HGB Conc 32.5 g/dl (31.0-35.0); Mean Corpuscular Hemoglobin 26.6 pg (27.0-33.0); Mean Corpuscular Volume 81.8 fL (80-98); Mean Platelet Volume 11.6 fL (9.4-12.3); Monocytes Absolute Auto 0.8 X10*3/uL (0.1-1.2); Monocytes Percent Auto 7.4 % (2-11); Neutrophils Absolute Auto 6.8 X10*3/uL (2.0-8.3); Neutrophils Percent Auto 66.9 % (45-73); Platelet Count 271 X10*3/uL (160-400); Red Cell Distribution Width 14.6 % (11.0-16.0); White Blood Count 10.2 X10*3/uL (4.8-10.8)
[2021-02-03 09:15] LABS: Estimated Average Glucose 240 mg/dL
[2021-02-03 09:20] LABS: Alanine Aminotransferase 29 U/L (0-31); Albumin Level 3.7 g/dL (3.5-5.0); Alkaline Phosphatase 86 U/L (39-117); Anion Gap 14 (12-20); Aspartate Amino Transferase 23 U/L (5-31); Bilirubin Total 0.3 mg/dL (0.0-1.0); Blood Urea Nitrogen 41 mg/dL (9-16); Calcium 9.5 mg/dL (8.4-10.2); Carbon Dioxide 20 mmol/L (22-29); Chloride 106 mmol/L (96-108); Cholesterol 144 mg/dL; Estimated Glomerular Filt Rate 27; Glucose Random 263 mg/dL (60-115); HDL Cholesterol 47 mg/dL; LDL Cholesterol Calculated 74 mg/dl; Potassium 4.6 mmol/L (3.3-5.1); Sodium 135 mmol/L (135-145); Triglycerides 119 mg/dL
[2021-02-03 09:44] LABS: Free T4 (Free Thyroxine) 0.91 ng/dL (0.71-1.85); Thyroid Stimulating Hormone 0.35 uIU/mL (0.32-4.0)
[2021-02-03 09:53] LABS: Creatinine Urine 80.68 mg/dL
[2021-02-03 10:23] LABS: Folate 7.3 ng/mL (> or = 4.0); Vitamin B12 558 pg/mL (200-900)
== END ==
LOC: HO.CARD 07:54
PROVIDERS: Absent Provider Internal Medicine Endocrinology, Diabetes & Metabolism; PCP Internal Medicine; Visit Provider Internal Medicine
DX: E78.00 Pure hypercholesterolemia, unspecified (principal); E11.65 Type 2 diabetes mellitus with hyperglycemia; J06.9 Acute upper respiratory infection, unspecified; I51.3 Intracardiac thrombosis, not elsewhere classified; Z79.4 Long term (current) use of insulin; Z20.822 Contact with and (suspected) exposure to COVID-19
CPT/HCPCS: 80053; 80061; 82043; 82306; 82607; 82746; 83036; 84439; 84443; 85025; 93306; U0003; U0005

== ENCOUNTER → 2021-02-04 13:42 | Outpatient (BNVA) | payer OTHER, SELFPAY | PROVIDERS: PCP Internal Medicine; Visit Provider Surgery Vascular Surgery | DX: I73.9 Peripheral vascular disease, unspecified (principal) | CPT/HCPCS: 99202 ==

== ENCOUNTER 2021-02-15 10:08 | Outpatient (REF) | payer OTHER, SELFPAY ==
--- NOTE | ~2021-02-15 | XR_ITS ---
EXAMINATION: XR HUMERUS, RIGHT CLINICAL INFORMATION: Pain in arm. COMPARISON: None. TECHNIQUE: AP and lateral views of the right humerus. FINDINGS: There is no visible fracture, bony abnormality involving the right humerus. There is a small olecranon head spur noted. The soft tissues are normal. XR/XR humerus RT IMPRESSION: Unremarkable right humerus.
== END 2021-02-15 10:09 | disposition home or self-care (01) ==
LOC: HO.XRAY 10:08
PROVIDERS: PCP Internal Medicine; Visit Provider Internal Medicine
DX: M79.603 Pain in arm, unspecified (principal)
CPT/HCPCS: 73060

== ENCOUNTER → 2021-02-16 12:05 | Outpatient (BNVA) | payer OTHER, SELFPAY | PROVIDERS: PCP Internal Medicine; Referring Provider Internal Medicine; Visit Provider Internal Medicine | DX: I25.10 Atherosclerotic heart disease of native coronary artery without angina pectoris (principal); I25.42 Coronary artery dissection; I51.3 Intracardiac thrombosis, not elsewhere classified; I63.40 Cerebral infarction due to embolism of unspecified cerebral artery; I10 Essential (primary) hypertension | CPT/HCPCS: 99212 ==

== ENCOUNTER 2021-02-17 12:56 | Outpatient (REF) | payer OTHER, SELFPAY ==
--- NOTE | ~2021-02-17 | US_ITS ---
EXAMINATION: NONINVASIVE ASSESSMENT OF THE ARTERIES OF BOTH LOWER EXTREMITIES WITH PVR EXAM AND BILATERAL LOWER EXTREMITY DUPLEX CLINICAL INFORMATION: Claudication TECHNIQUE: Ankle pulse volume recordings, ankle pressure measurements and ankle brachial indices were obtained of the lower extremity arterial system bilaterally in addition to duplex Doppler techniques with wave form analysis and measurement of velocities in the common femoral, profunda femoral, superficial femoral, popliteal and tibial arteries. The study was performed only at rest. COMPARISON: None FINDINGS: a) AT REST: RIGHT LE. The right ankle-brachial index is: 0.9 2. Right ankle pressure: Decreased. 3. Right ankle PVR waveform: Dampened 4. Right direct duplex Doppler findings: There is evidence of atherosclerotic disease. * Common femoral artery: 120 cm/s, Diastolic flow reversal: Yes * Superficial femoral artery (proximal, mid, distal): 134, 140 and 112 cm/s, Diastolic flow reversal: Yes * Popliteal artery: 61 cm/s, Diastolic flow reversal: Yes * Posterior tibial artery: 32 cm/s, Diastolic flow reversal: No. Monophasic. LEFT LE. The left ankle-brachial index is: 1.0 2. Left ankle pressure: Decreased 3. Left ankle PVR waveform: Dampened 4. Left direct duplex Doppler findings: There is evidence of atherosclerotic disease. * Common femoral artery: 123 cm/s, Diastolic flow reversal: Yes * Superficial femoral artery (proximal, mid, distal): 153, 185 and 128 cm/s, Diastolic flow reversal: Yes * Popliteal artery: 61 cm/s, Diastolic flow reversal: Yes * Posterior tibial artery: 25 cm/s, Diastolic flow reversal: No. Monophasic. CELESTINO Reference: * >0.97-1.25 = normal - no significant arterial disease * 0.75-0.96 = mild peripheral arterial disease * 0.5-0.74 = moderate peripheral arterial disease * <0.50 = severe peripheral arterial disease US/US arterial duplex LE BI IMPRESSION: Right: The right CELESTINO is 0.9. There is evidence of atherosclerotic disease. There is decreased peak systolic velocity and abnormal monophasic waveform in the right posterior tibial artery. Left: The left CELESTINO is 1. There is evidence of atherosclerotic disease. There is increased peak systolic velocity in the mid left SFA. There is decreased peak systolic velocity and abnormal monophasic waveform in the left posterior tibial artery.
== END 2021-02-17 12:57 | disposition home or self-care (01) ==
LOC: HO.US 12:56
PROVIDERS: Visit Provider Surgery Vascular Surgery
DX: I70.213 Atherosclerosis of native arteries of extremities with intermittent claudication, bilateral legs (principal)
CPT/HCPCS: 93923; 93925

== ENCOUNTER → 2021-02-23 13:22 | Outpatient (BNVA) | payer OTHER, SELFPAY | PROVIDERS: PCP Internal Medicine; Visit Provider Surgery Vascular Surgery | DX: I73.9 Peripheral vascular disease, unspecified (principal) | CPT/HCPCS: 99212 ==

== ENCOUNTER → 2021-03-02 09:38 | Outpatient (BNVA) | payer OTHER, SELFPAY | PROVIDERS: PCP Internal Medicine; Visit Provider Internal Medicine Endocrinology, Diabetes & Metabolism | DX: E11.65 Type 2 diabetes mellitus with hyperglycemia (principal); E11.21 Type 2 diabetes mellitus with diabetic nephropathy; E11.42 Type 2 diabetes mellitus with diabetic polyneuropathy; E11.3599 Type 2 diabetes mellitus with proliferative diabetic retinopathy without macular edema, unspecified eye; E78.2 Mixed hyperlipidemia; Z79.4 Long term (current) use of insulin | CPT/HCPCS: 82947; 99212 ==

== ENCOUNTER 2021-06-02 11:24 | Outpatient (REF) | payer OTHER, SELFPAY ==
[2021-06-02 12:27] LABS: MANUAL DIFF FLAG NO
[2021-06-02 12:46] LABS: Basophils Absolute Auto 0.1 X10*3/uL (0.0-0.2); Basophils Percent Auto 0.7 % (0-2); Eosinophils Absolute Auto 0.1 X10*3/uL (0.0-0.4); Eosinophils Percent Auto 0.8 % (0-4); Hematocrit 46.2 % (37-47); Hemoglobin 15.2 g/dl (12.0-16.0); Imm Gran Abs Auto 0.02 X10*3/uL (0.00-0.03); Imm Gran Pct Auto 0.2 % (0.0-0.4); Lymphocytes Absolute Auto 2.6 X10*3/uL (1.2-4.9); Lymphocytes Percent Auto 30.1 % (20-40); Mean Corpuscular HGB Conc 32.9 g/dl (31.0-35.0); Mean Corpuscular Hemoglobin 26.4 pg (27.0-33.0); Mean Corpuscular Volume 80.2 fL (80-98); Mean Platelet Volume 12.1 fL (9.4-12.3); Monocytes Absolute Auto 0.6 X10*3/uL (0.1-1.2); Monocytes Percent Auto 6.7 % (2-11); Neutrophils Absolute Auto 5.3 X10*3/uL (2.0-8.3); Neutrophils Percent Auto 61.5 % (45-73); Platelet Count 288 X10*3/uL (160-400); Red Blood Count 5.76 X10*6/uL (4.20-5.50); Red Cell Distribution Width 13.6 % (11.0-16.0); White Blood Count 8.7 X10*3/uL (4.8-10.8)
[2021-06-02 13:31] LABS: Anion Gap 15 (12-20); Blood Urea Nitrogen 43 mg/dL (9-16); Calcium 10.1 mg/dL (8.4-10.2); Carbon Dioxide 20 mmol/L (22-29); Chloride 105 mmol/L (96-108); Estimated Glomerular Filt Rate 27; Potassium 4.6 mmol/L (3.3-5.1); Sodium 135 mmol/L (135-145)
== END 2021-06-02 11:25 | disposition home or self-care (01) ==
LOC: HO.LAB 11:24
PROVIDERS: PCP Internal Medicine; Visit Provider Internal Medicine Hypertension Specialist
DX: E11.65 Type 2 diabetes mellitus with hyperglycemia (principal); E11.21 Type 2 diabetes mellitus with diabetic nephropathy; E78.5 Hyperlipidemia, unspecified; E55.9 Vitamin D deficiency, unspecified; I10 Essential (primary) hypertension; Z79.4 Long term (current) use of insulin
CPT/HCPCS: 36415; 80051; 82310; 82565; 82947; 83036; 84520; 85025; 99212

== ENCOUNTER 2021-06-21 12:28 | Outpatient (REF) | payer OTHER, SELFPAY | END 2021-06-21 12:29 | disposition home or self-care (01) | LOC: HO.LAB 12:28 | PROVIDERS: PCP Internal Medicine; Visit Provider Internal Medicine | DX: Z20.822 Contact with and (suspected) exposure to COVID-19 (principal) | CPT/HCPCS: C9803; U0003; U0005 ==

== ENCOUNTER 2021-07-23 14:27 | Outpatient (REF) | payer OTHER, SELFPAY ==
--- NOTE | ~2021-07-23 | MM_ITS ---
EXAMINATION: MM DIAGNOSTIC DIGITAL BREAST TOMOSYNTHESIS, BILATERAL CLINICAL INFORMATION: Due for yearly. Also follow-up probable benign grouped calcifications mid upper outer right breast suggested increase in 2019. The lifetime risk of breast cancer based on the Tyrer-Cuzick Model is 10%. COMPARISON: Mammography: 06/10/2020, 07/19/2019, 05/14/2018 TECHNIQUE: Digital breast tomosynthesis is performed in both the craniocaudal and mediolateral oblique views along with computer-aided detection (CAD). Synthesized 2D images are generated from the tomosynthesis. Additional magnification right CC and magnification right ML views are obtained. FINDINGS: There are scattered areas of fibroglandular density (ACR BI-RADS breast composition Category b). Parenchymal pattern is similar to prior studies. There is no interval mass or developing density or architectural abnormality. There are scattered bilateral vascular and some scattered round calcifications. The axilla and skin contours are unremarkable. Right breast calcifications for follow-up mid to posterior upper outer quadrant are stable from prior diagnostic exams 2019, 2018, and also in retrospect similar to diagnostic exam 2018. 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 They are now considered to be benign. Results are provided to the patient at time of visit by the technologist. MM/MM tomosynthesis diagnostic BI IMPRESSION: There are no significant changes from prior exams. The right breast calcifications are stable and now considered to be benign. ASSESSMENT: BI-RADS 2: Benign RECOMMENDATION: Routine annual mammography screening. This patient's information was entered into a reminder system with a target due date for their next mammogram.
== END 2021-07-23 14:28 | disposition home or self-care (01) ==
LOC: HO.MAMMO 14:27
PROVIDERS: Visit Provider Internal Medicine
DX: R92.1 Mammographic calcification found on diagnostic imaging of breast (principal)
CPT/HCPCS: 77062; 77066

== ENCOUNTER → 2021-08-24 09:57 | Outpatient (BNVA) | payer OTHER, SELFPAY | PROVIDERS: PCP Internal Medicine; Referring Provider Internal Medicine; Visit Provider Internal Medicine | DX: I25.10 Atherosclerotic heart disease of native coronary artery without angina pectoris (principal); I25.42 Coronary artery dissection; I51.3 Intracardiac thrombosis, not elsewhere classified; I10 Essential (primary) hypertension; R07.2 Precordial pain; E11.8 Type 2 diabetes mellitus with unspecified complications; Z86.73 Personal history of transient ischemic attack (TIA), and cerebral infarction without residual deficits | CPT/HCPCS: 93005; 99212 ==

== ENCOUNTER 2021-08-24 11:18 | Outpatient (REF) | payer OTHER, SELFPAY ==
[2021-08-24 11:57] LABS: COVID-19 Test Negative (Negative)
== END 2021-08-24 11:19 | disposition home or self-care (01) ==
LOC: HO.LAB 11:18
PROVIDERS: Visit Provider Internal Medicine
DX: Z20.822 Contact with and (suspected) exposure to COVID-19 (principal)
CPT/HCPCS: 36415; 87635; C9803

== ENCOUNTER → 2021-10-07 12:15 | Outpatient (BNVA) | payer OTHER, SELFPAY | PROVIDERS: PCP Internal Medicine; Visit Provider Nurse Practitioner Gerontology ==

== ENCOUNTER 2021-10-12 12:19 | Outpatient (REF) | payer OTHER, SELFPAY ==
[2021-10-12 13:11] LABS: Estimated Average Glucose 249 mg/dL; Hemoglobin A1c % 10.3 %
[2021-10-12 13:22] LABS: Alanine Aminotransferase 21 U/L (0-31); Albumin Level 4.2 g/dL (3.5-5.0); Alkaline Phosphatase 92 U/L (39-117); Anion Gap 13 (12-20); Aspartate Amino Transferase 16 U/L (5-31); Bilirubin Total 0.4 mg/dL (0.0-1.0); Blood Urea Nitrogen 38 mg/dL (9-16); Calcium 10.2 mg/dL (8.4-10.2); Carbon Dioxide 22 mmol/L (22-29); Chloride 105 mmol/L (96-108); Cholesterol 156 mg/dL; Estimated Glomerular Filt Rate 25; Glucose Fasting 197 mg/dL (60-99); HDL Cholesterol 48 mg/dL; LDL Cholesterol Calculated 83 mg/dl; Sodium 136 mmol/L (135-145); Total Protein 8.1 g/dL (6.5-8.0); Triglycerides 126 mg/dL
[2021-10-12 13:44] LABS: Vitamin D 25-OH Total 16.3 ng/mL (>30)
[2021-10-12 15:33] LABS: Creatinine Urine 71.85 mg/dL
== END 2021-10-12 12:20 | disposition home or self-care (01) ==
LOC: HO.LAB 12:19
PROVIDERS: PCP Internal Medicine; Visit Provider Nurse Practitioner Gerontology
DX: E11.8 Type 2 diabetes mellitus with unspecified complications (principal); E55.9 Vitamin D deficiency, unspecified
CPT/HCPCS: 36415; 80053; 80061; 82043; 82306; 83036

== ENCOUNTER → 2021-11-19 14:23 | Outpatient (BNVA) | payer OTHER, SELFPAY | PROVIDERS: PCP Internal Medicine; Referring Provider Internal Medicine; Visit Provider Nurse Practitioner | DX: K21.9 Gastro-esophageal reflux disease without esophagitis (principal); K59.04 Chronic idiopathic constipation; K57.92 Diverticulitis of intestine, part unspecified, without perforation or abscess without bleeding; K64.9 Unspecified hemorrhoids | CPT/HCPCS: 99212 ==

== ENCOUNTER 2021-12-17 09:23 | Outpatient (REF) | payer OTHER, SELFPAY ==
[2021-12-17 11:27] LABS: Anion Gap 14 (12-20); Blood Urea Nitrogen 46 mg/dL (9-16); Calcium 9.8 mg/dL (8.4-10.2); Carbon Dioxide 23 mmol/L (22-29); Chloride 105 mmol/L (96-108); Estimated Glomerular Filt Rate 22; Glucose Random 154 mg/dL (60-115); Potassium 4.6 mmol/L (3.3-5.1); Sodium 137 mmol/L (135-145)
[2021-12-17 12:40] LABS: Creatinine Urine 86.69 mg/dL
[2021-12-17 12:54] LABS: Protein/Creatinine Ratio, Ur 4.59 (<0.2); Total Protein Urine Random 398 mg/dL (<12)
[2021-12-20 16:41] LABS: Calcium (PTHI) 10.2 mg/dL (8.6-10.4); PTHI 82 pg/mL (14-64)
== END 2021-12-17 09:24 | disposition home or self-care (01) ==
LOC: HO.LAB 09:23
PROVIDERS: PCP Internal Medicine; Visit Provider Internal Medicine Hypertension Specialist
DX: K57.92 Diverticulitis of intestine, part unspecified, without perforation or abscess without bleeding (principal); K59.04 Chronic idiopathic constipation; K21.9 Gastro-esophageal reflux disease without esophagitis; E11.21 Type 2 diabetes mellitus with diabetic nephropathy
CPT/HCPCS: 36415; 80048; 83970; 84156; 99212

== ENCOUNTER 2022-01-06 13:51 | Outpatient (REF) | payer OTHER, SELFPAY ==
[2022-01-06 14:56] LABS: Hematocrit 44.9 % (37.0-47.0); Hemoglobin 15.2 g/dl (12.0-16.0); Mean Corpuscular HGB Conc 33.9 g/dl (31.0-35.0); Mean Corpuscular Hemoglobin 28.7 pg (27.0-33.0); Mean Corpuscular Volume 84.7 fL (80.0-98.0); Mean Platelet Volume 12.1 fL (9.4-12.3); Platelet Count 230 X10*3/uL (160-400); White Blood Count 10.5 X10*3/uL (4.8-10.8)
[2022-01-06 15:04] LABS: Estimated Average Glucose 232 mg/dL; Hemoglobin A1c % 9.7 %
[2022-01-06 15:21] LABS: Alanine Aminotransferase 20 U/L (0-31); Albumin Level 3.9 g/dL (3.5-5.0); Alkaline Phosphatase 84 U/L (39-117); Anion Gap 13 (12-20); Aspartate Amino Transferase 17 U/L (5-31); Bilirubin Total 0.3 mg/dL (0.0-1.0); Blood Urea Nitrogen 39 mg/dL (9-16); Calcium 9.7 mg/dL (8.4-10.2); Carbon Dioxide 22 mmol/L (22-29); Chloride 104 mmol/L (96-108); Cholesterol 151 mg/dL; Estimated Glomerular Filt Rate 22; Glucose Random 224 mg/dL (60-115); HDL Cholesterol 43 mg/dL; LDL Cholesterol Calculated 67 mg/dl; Potassium 4.6 mmol/L (3.3-5.1); Sodium 134 mmol/L (135-145); Total Protein 7.5 g/dL (6.5-8.0); Triglycerides 207 mg/dL
[2022-01-06 15:42] LABS: Vitamin D 25-OH Total 18.4 ng/mL (>30)
[2022-01-06 16:20] LABS: Creatinine Urine 82.37 mg/dL
[2022-01-06 16:51] LABS: Microalbum/Creatinine Ratio Ur 3586.2 ug/mg cr
[2022-01-07 17:22] LABS: LDL Cholesterol Direct 72 mg/dL (<100)
== END 2022-01-06 13:52 | disposition home or self-care (01) ==
LOC: HO.LAB 13:51
PROVIDERS: Absent Provider Internal Medicine; PCP Internal Medicine; Visit Provider Internal Medicine Hypertension Specialist
DX: N18.4 Chronic kidney disease, stage 4 (severe) (principal); E11.65 Type 2 diabetes mellitus with hyperglycemia; E55.9 Vitamin D deficiency, unspecified; Z79.4 Long term (current) use of insulin
CPT/HCPCS: 36415; 80053; 80061; 82043; 82306; 83036; 83721; 85027

== ENCOUNTER → 2022-01-10 13:37 | Outpatient (BNVA) | payer OTHER, SELFPAY | PROVIDERS: PCP Internal Medicine; Visit Provider Nurse Practitioner Gerontology | DX: E11.65 Type 2 diabetes mellitus with hyperglycemia (principal); E11.42 Type 2 diabetes mellitus with diabetic polyneuropathy; E11.22 Type 2 diabetes mellitus with diabetic chronic kidney disease; I12.9 Hypertensive chronic kidney disease with stage 1 through stage 4 chronic kidney disease, or unspecified chronic kidney disease; N18.30 Chronic kidney disease, stage 3 unspecified; E78.5 Hyperlipidemia, unspecified; E55.9 Vitamin D deficiency, unspecified; Z79.4 Long term (current) use of insulin | CPT/HCPCS: 82947; 99212 ==

== ENCOUNTER 2022-01-31 08:36 | Outpatient (REF) | payer OTHER, SELFPAY ==
--- NOTE | ~2022-01-31 | US_ITS ---
EXAMINATION: US RETROPERITONEAL LIMITED (RENAL ONLY) CLINICAL INFORMATION: Chronic kidney disease stage IV. COMPARISON: Ultrasound abdomen complete 02/09/2017. US retroperitoneal limited (renal only) 12/29/2016. TECHNIQUE: Real-time imaging of the kidneys. FINDINGS: RIGHT KIDNEY: 11.9 x 4.5 x 6.0 cm (SAG x AP x TRV). The kidney is normal in size, and contour. There is increased renal cortical echogenicity. Renal cortical thickness is normal. No calculi or focal parenchymal lesions. No hydronephrosis. LEFT KIDNEY: 12.0 x 5.8 x 5.4 cm (SAG x AP x TRV). The kidney is normal in size, and contour. There is increased renal cortical echogenicity.. Renal cortical thickness is normal. No calculi or focal parenchymal lesions. No hydronephrosis. US/US renal BI IMPRESSION: Increased renal cortical echogenicity. Otherwise unremarkable exam.
== END 2022-01-31 08:37 | disposition home or self-care (01) ==
LOC: HO.US 08:36
PROVIDERS: PCP Internal Medicine; Visit Provider Internal Medicine Hypertension Specialist
DX: N18.4 Chronic kidney disease, stage 4 (severe) (principal)
CPT/HCPCS: 76775

== ENCOUNTER 2022-02-08 13:54 | Outpatient (REF) | payer OTHER, SELFPAY ==
--- NOTE | ~2022-02-08 | US_ITS ---
EXAMINATION: NONINVASIVE ASSESSMENT OF THE ARTERIES OF BOTH LOWER EXTREMITIES WITH PVR EXAM AND BILATERAL LOWER EXTREMITY DUPLEX CLINICAL INFORMATION: Peripheral vascular disease. TECHNIQUE: Ankle pulse volume recordings, ankle pressure measurements and ankle-brachial indices were obtained of the lower extremity arterial system bilaterally. Additionally, duplex Doppler techniques were used with wave form analysis and measurement of velocities in the common femoral, profunda femoral, superficial femoral, popliteal and tibial arteries. The study was performed only at rest. COMPARISON: 02/17/2021 FINDINGS: ANKLE-BRACHIAL INDEX: Right: 0.97 Left: 0.92 ANKLE PRESSURES (mmHg): Right: PT 83, DP 138 Left: PT 117, DP 131 PVR WAVEFORM: Right: Dampened, loss of dicrotic notch. Left: Dampened, loss of dicrotic notch. DIRECT DUPLEX DOPPLER FINDINGS: RIGHT LEG: Common femoral artery: 129 cm/s, diastolic flow reversal: Yes. Profunda femoris artery: 174 cm/s, diastolic flow reversal: Yes. Superficial femoral artery (proximal): 150 cm/s, diastolic flow reversal: Yes. Superficial femoral artery (mid): 166 cm/s, diastolic flow reversal: Yes. Superficial femoral artery (distal): 126 cm/s, diastolic flow reversal: Yes. Popliteal artery: 84.4 cm/s, diastolic flow reversal: Yes. Posterior tibial artery: 21.2 cm/s, diastolic flow reversal: Yes. Peroneal artery: 13.9 cm/s, diastolic flow reversal: Yes. LEFT LEG: Common femoral artery: 113 cm/s, diastolic flow reversal: Yes. Profunda femoris artery: 93.3 cm/s, diastolic flow reversal: Yes. Superficial femoral artery (proximal): 131 cm/s, diastolic flow reversal: Yes. Superficial femoral artery (mid): 237 cm/s, diastolic flow reversal: Yes. Superficial femoral artery (distal): 155 cm/s, diastolic flow reversal: Yes. Popliteal artery: 51.5 cm/s, diastolic flow reversal: Yes. Popliteal artery stent: [place] artery proximal: 87.9 cm/s, multiphasic flow. Mid stent: 79.7 cm/s, multiphasic flow. [place] artery distal: 51.9 cm/s, multiphasic flow. Posterior tibial artery: 23.8 cm/s, diastolic flow reversal: No. Peroneal artery: 37.6 cm/s, diastolic flow reversal: No. US/US arterial duplex LE BI IMPRESSION: Right leg: CELESTINO 0.97. There are decreased velocities and monophasic waveforms within the posterior tibial artery and peroneal artery. Left leg: CELESTINO 0.92 consistent with mild peripheral arterial disease. A left popliteal artery stent appears patent without in-stent stenosis. There is increased velocity within the mid SFA consistent with a moderate hemodynamically significant stenosis. Waveforms within the posterior tibial and peroneal arteries are monophasic. CELESTINO Reference: - >0.97-1.25 = normal - no significant arterial disease. - 0.75-0.96 = mild peripheral arterial disease. - 0.5-0.74 = moderate peripheral arterial disease. - <0.50 = severe peripheral arterial disease.
== END 2022-02-08 13:55 | disposition home or self-care (01) ==
LOC: HO.US 13:54
PROVIDERS: Visit Provider Surgery Vascular Surgery
DX: I73.9 Peripheral vascular disease, unspecified (principal)
CPT/HCPCS: 93923; 93925

== ENCOUNTER → 2022-03-01 09:23 | Outpatient (BNVA) | payer OTHER, SELFPAY | PROVIDERS: PCP Internal Medicine; Visit Provider Nurse Practitioner | DX: K57.92 Diverticulitis of intestine, part unspecified, without perforation or abscess without bleeding (principal); K21.9 Gastro-esophageal reflux disease without esophagitis; K64.9 Unspecified hemorrhoids; K59.04 Chronic idiopathic constipation | CPT/HCPCS: 99212 ==

== ENCOUNTER → 2022-03-15 08:52 | Outpatient (BNVA) | payer OTHER, SELFPAY | PROVIDERS: PCP Internal Medicine; Visit Provider Surgery Vascular Surgery | DX: I73.9 Peripheral vascular disease, unspecified (principal) | CPT/HCPCS: 99212 ==

== ENCOUNTER → 2022-04-05 09:04 | Outpatient (BNVA) | payer OTHER, SELFPAY | PROVIDERS: PCP Internal Medicine; Visit Provider Nurse Practitioner | DX: K59.04 Chronic idiopathic constipation (principal); K21.9 Gastro-esophageal reflux disease without esophagitis; K64.9 Unspecified hemorrhoids | CPT/HCPCS: 99212 ==

== ENCOUNTER → 2022-04-07 08:11 | Outpatient (REF) | payer OTHER, SELFPAY ==
--- NOTE | 2022-04-07 08:14 | CA_ITS ---
Transthoracic Echocardiogram Patient (Last, First, Middle): Phoebe Ruelas, Gender: Female Date of : 1970 Age: 51 Procedure Date: 04/07/2022 Procedure Type: Transthoracic Echocardiogram Location: OP Height: 167.64 cm Weight: 90.72 kg BSA: 2.00 m2 Heart Rate: bpm BP: 150 / 88 mmHg [employer]: EZE Referring MD: Zander May MD Symptoms: I25.10 - Atherosclerotic heart disease of [place] coronary... Study Quality: Fair/Contrast ECG Rhythm: Sinus Conclusions: - The left ventricular systolic function is low normal. The calculated ejection fraction is 54% by biplane method. 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 - Evidence suggests grade II (moderate) diastolic dysfunction. - No obvious valvular pathology seen on this study. Findings Procedure Information Contrast agent, definity, is being given per protocol without apparent complications. Left Ventricle Normal left ventricular cavity size. There is mildly increased left ventricular wall thickness. The left ventricular systolic function is low normal. The calculated ejection fraction is 54% by biplane method. There is evidence of regional wall motion abnormalities. E/E prime ratio is >15, consistent with elevated filling pressures. Evidence suggests grade II (moderate) diastolic dysfunction. 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 Right Ventricle Normal right ventricular cavity size and systolic function. Atria The left atrium is mildly dilated. The right atrium is normal in size. Aortic Valve The aortic valve was not well visualized. The aortic valve structure and function is likely normal. There is no aortic valve stenosis. There is no aortic valve regurgitation. Mitral Valve The mitral valve appears normal. There is no mitral valve regurgitation. There is no mitral valve stenosis. Pulmonic Valve The pulmonic valve is likely normal. There is trace pulmonic valve regurgitation. Tricuspid Valve There is trace tricuspid valve regurgitation. The pulmonary artery systolic pressure is normal. Great Vessels The aortic annulus, sinuses of valsalva, and asc aorta are normal in size. Venous The inferior vena cava is normal in size and collapses greater than 50% with inspiration. Pericardium/Pleural There is no evidence of pericardial effusion. Prior Study Comparison No significant change compared to prior study dated: 02/03/2021. Recommendations, Care & Conclusions No obvious valvular pathology seen on this study. Measurements 2D Linear Measurements IVSd: 1.16 0.6-0.9/0.6-1.0 cm LVIDd: 4.37 3.9-5.3/4.2-5.9 cm LVIDd Index: 2.19 2.4-3.2/2.2-3.1 cm/m2 LVIDs: 2.41 2.0-3.6 cm LVPWd: 1.11 0.7-1.1 cm LA Diam: 3.60 2.7-3.8/3.0-4.0 cm LAIDs Index: 1.80 1.5-2.3 cm/m2 LV Mass: 217.67 67-162/88-224 g LV Mass Index: 108.84 43-95/49-115 g/m2 LVOT Diam: 2.00 3.0+(-)1.3 cm 2D Systolic Function EF 4C: 52.80 >55% EF 2C: 56.00 >55% EF BiP: 54.40 >55% Mitral Valve MV Pk E: 1.11 MV PK A: 0.74 MV Decel Time: 237.00 E/A: 1.50 E'Lateral: 4.81 E'Medial: 4.19 E/E' Med: 26.50 E/E' Lat: 23.10 PHT: 69.00 MVA PHT: 3.19 Decel Mono: 4.67 Aortic Valve AoV Pk James: 1.37 AoV Mn James: 0.84 AoV VTI: 0.33 AoV Pk Grad: 8.00 Aov Mn Grad: 3.00 MARSHAL Cont.VTI: 2.30 LVOT LVOT Pk James: 0.95 LVOT Mn James: 0.66 LVOT VTI: 0.24 LVOT Pk Grad: 4.00 LVOT Mn Grad: 2.00 LVOT Diam: 2.00 LVOT Area: 3.14 Diastolic Function MV Pk E: 1.11 MV Pk A: 0.74 E/A: 1.50 E'Medial: 4.19 E/E' Med: 26.50 E' Laterial: 4.81 E/E' Lat: 23.10 Right Ventricle TAPSE (mm): 24.90 TVS' James: 9.96 Tricuspid Valve TR Pk James: 2.09 TR Pk Grad: 17.00 RA Press: 3.00 RVSP: 20.00 Great Vessels Aorta Sinus of Valsalva: 2.98 2.0-3.[address] [place]: 2.69 1.7-3.4 cm Ao Asc: 3.30 2.1-3.4 cm Ao Arch: 3.00 Updated in Other Vendor System with Status of Final Zander May MD electronically signed on 04/09/2022 1:31:32 PM with status of Final
== END ==
LOC: HO.CARD 08:11
PROVIDERS: Visit Provider Internal Medicine
DX: R07.2 Precordial pain (principal); I25.10 Atherosclerotic heart disease of native coronary artery without angina pectoris
CPT/HCPCS: 93306; Q9957

== ENCOUNTER 2022-04-27 12:42 | Outpatient (REF) | payer OTHER, SELFPAY ==
[2022-04-27 14:46] LABS: Anion Gap 15 (12-20); Blood Urea Nitrogen 32 mg/dL (9-16); Calcium 9.7 mg/dL (8.4-10.2); Carbon Dioxide 21 mmol/L (22-29); Chloride 107 mmol/L (96-108); Estimated Glomerular Filt Rate 21; Potassium 4.6 mmol/L (3.3-5.1); Sodium 138 mmol/L (135-145)
[2022-04-27 15:02] LABS: Vitamin D 25-OH Total 30.3 ng/mL (>30)
[2022-04-27 16:02] LABS: Creatinine Urine 117.47 mg/dL
== END 2022-04-27 12:43 | disposition home or self-care (01) ==
LOC: HO.LAB 12:42
PROVIDERS: Internal Medicine; Nurse Practitioner Gerontology; PCP Internal Medicine; Visit Provider Internal Medicine Hypertension Specialist
DX: E11.65 Type 2 diabetes mellitus with hyperglycemia (principal); E11.22 Type 2 diabetes mellitus with diabetic chronic kidney disease; E11.21 Type 2 diabetes mellitus with diabetic nephropathy; N18.4 Chronic kidney disease, stage 4 (severe); E55.9 Vitamin D deficiency, unspecified; Z79.4 Long term (current) use of insulin
CPT/HCPCS: 36415; 80051; 82306; 82310; 82565; 84520

== ENCOUNTER 2022-05-08 04:33 | Emergency (ER) | payer OTHER, SELFPAY ==
--- NOTE | ~2022-05-08 | XR_ITS ---
EXAMINATION: XR CHEST CLINICAL INFORMATION: Right-sided chest pain COMPARISON: 11/28/2019 TECHNIQUE: Frontal view of the chest was obtained. FINDINGS: Normal symmetric lung volumes. No parenchymal consolidation. No pleural effusion. No pneumothorax. Cardiomediastinal silhouette and pulmonary vascularity are within normal limits. No acute osseous abnormalities. XR/XR chest 1V IMPRESSION: No acute findings
--- NOTE | ~2022-05-08 | NM_ITS ---
EXAMINATION: UT PULMONARY PERFUSION ONLY STUDY: CLINICAL INDICATION: Right-sided chest pain. PROCEDURE: Following the intravenous administration of 4.0 millicuries technetium 99m MAA, images of the chest were obtained in multiple projections using a gamma scintiphotographic camera. COMPARISON: Chest radiograph done earlier today. PERFUSION IMAGES: Single moderate to large wedge-shaped perfusion defect is present extending to the peripheral involving the superior segment of left lower lobe of the lung, best seen on the LPO projection. The remainder of the lung russ otherwise show symmetric perfusion without evidence of any additional perfusion defect. Based on perfusion only modified PIOPED 2 criteria, the current study is being read as nondiagnostic. Alternative imaging modality as appropriate is recommended for further full detail evaluation. The current chest radiograph shows bilateral clear lung russ. UT/UT pul perfusion IMPRESSION: Single moderate-large perfusion defect is present at the superior segment of left lower lobe of the lung. Based on perfusion only modified PIOPED 2 criteria, the current study is being read as nondiagnostic. Alternative imaging modality as appropriate is recommended for further full detail evaluation.
[2022-05-08 04:42] VITALS: BP 151/82; BP 174/60; PULSE 70; PULSE 72; RESP 14; TEMP 37.1; O2SAT 97; O2SAT 98; BMI 34.9
--- NOTE | 2022-05-08 04:44 | ECG_ITS ---
Test Reason : chest pain Blood Pressure : / mmHG Vent. Rate : 073 BPM Atrial Rate : 073 BPM P-R Int : 134 ms QRS Dur : 088 ms QT Int : 392 ms P-R-T Axes : 016 -22 110 degrees QTc Int : 431 ms Normal sinus rhythm Inferior infarct (cited on or before 17-SEP-2016) Anterolateral infarct (cited on or before 17-SEP-2016) Abnormal ECG When compared with ECG of 27-NOV-2020 10:45, No significant changes seen Referred By: Wanda Dubois Electronically Signed By:MARLENE VASQUEZ
--- NOTE | 2022-05-08 04:45 | ED_ITS ---
HPI - Back Pain/Injury General Chief Complaint: General Medical Stated Complaint: difficulty breathing Time Seen by Provider: 05/08/22 04:36 Source: patient Mode of arrival: EMS Limitations: no limitations History of Present Illness HPI Narrative: 52 yo female with hx of DM, HTN, PVD, HLD, CVA, CAD s/p BMS to distal circumflex and mid stenosis of LAD, prior left apical mural thrombus took herself off coumadin no longer on blood thinners comes in with c/o R sided posterior rib pleuritic pain. Atraumatic in nature. Woke her from sleep. This has never happened to her before. She has never had pain like this. MD elicited complaint: back pain Onset (ago): hour(s) (few) Timing: constant Severity: moderate Similar Symptoms Previously: No Quality: sharp Location: right upper back Radiation: none Exacerbating factors: deep breaths Relieving factors: none Context: unknown Associated symptoms: other (dyspnea, nausea post EMS aspirin) Treatments prior to arrival: ASA (324mg aspirin with EMS) Work related injury: No Related Data Home Medications Medication Instructions Recorded Confirmed dapagliflozin 10 mg tablet 10 mg PO DAILY 03/15/22 (Farxiga) furosemide 20 mg tablet 20 mg PO DAILY 03/15/22 Previous Rx's Medication Instructions Recorded FreeStyle Lite Meter #1 ea 02/04/21 (blood-glucose meter) flash glucose scanning reader #1 ea 03/02/21 (FreeStyle Patrick 14 Day [place]) FreeStyle Precision [place] Strips #25 ea 03/09/21 (blood sugar diagnostic) diclofenac sodium 1 % topical gel 4 g topical QID #3 tubes 06/24/21 (Arthritis Pain (diclofenac)) lancets 33 gauge #100 ea 10/07/21 irbesartan 150 mg tablet 150 mg PO DAILY #90 tabs 10/25/21 omeprazole 20 mg capsule,delayed 20 mg PO DAILY #90 caps 11/19/21 release alcohol swabs 1 pad topical TID 90 days #3 ea 11/30/21 aspirin 81 mg tablet,delayed 81 mg PO DAILY #90 tabs 11/30/21 release blood sugar diagnostic (FreeStyle #400 ea 12/01/21 Lite Strips) rosuvastatin 20 mg tablet 20 mg PO BEDTIME #90 tabs 12/01/21 ezetimibe 10 mg tablet 10 mg PO DAILY #90 tabs 12/24/21 glucose 4 gram chewable tablet 12 g PO Q15M PRN hypoglycemia #60 01/10/22 (Dex4 Glucose) tabs insulin glargine U-300 conc 300 64 unit (0.2133 mL) subcut DAILY 01/10/22 unit/mL (3 mL) subcutaneous pen 50 days #12 mL (Toujeo Max U-300 SoloStar) cholecalciferol (vitamin D3) 50 50 mcg PO DAILY #90 caps 01/12/22 mcg (2,000 unit) capsule flash glucose sensor (FreeStyle #2 ea 01/17/22 Patrick 14 Day Sensor kit) zolpidem 10 mg tablet 10 mg PO BEDTIME PRN insomnia 30 02/23/22 days #30 tabs Proctosol HC 2.5 % topical cream 1 appl MA BID #28.35 grams 03/08/22 perineal applicator (hydrocortisone) pen needle, diabetic 32 gauge x #150 ea 03/17/22 amlodipine 10 mg tablet 10 mg PO DAILY 90 days #90 tabs 03/21/22 linaclotide 290 mcg capsule 290 mcg PO QAM 30 days #30 caps 04/05/22 (Linzess) insulin lispro 100 unit/mL See Rx Instructions subcut 04/15/22 subcutaneous pen USEASDIRECTD 30 days #15 mL insulin lispro 100 unit/mL 10 - 24 unit (0.1 - 0.24 mL) 04/15/22 subcutaneous pen (Humalog KwikPen subcut QID 30 days #15 mL (U-100) Insulin) metoprolol succinate 200 mg 200 mg PO DAILY #90 tabs 04/21/22 tablet,extended release 24 hr tramadol 50 mg tablet 50 mg PO Q6H PRN pain 30 days #30 05/02/22 tabs Allergies Allergy/AdvReac Type Severity Reaction Status Date / Time cephalexin [From KEFLEX] Allergy Intermediate HIVES Verified 04/05/22 09:08 Review of Systems Review of Systems: Constitutional : No Weight loss, No Fever, No Chills ENT/Mouth : No sore throat, No Rhinorrhea Eyes: No Eye Pain, No Swelling Cardiovascular : no Chest Pain, pos SOB, no Dyspnea on Exertion, No Orthopnea, No Edema, No Palpitations Respiratory : No Cough, No Sputum Gastrointestinal : pos Nausea, No Vomiting, No Diarrhea, No abdominal Pain, No Hematochezia, No Melena Genitourinary : No Dysuria, No Urinary Frequency Musculoskeletal : No joint pain, No Myalgias, No Joint Swelling, pos posterior R back pain Skin : No Skin Lesions, No rash Neuro : No Weakness, No Numbness, No Dizziness, No Headache Psych : No Anxiety/Panic, No Depression Heme/Lymph: No Bruising, No Lymphadenopathy Endocrine : No Polyuria, No Polydipsia All other systems reviewed and are negative [facility] Past Medical History Medical History Acute angle-closure glaucoma Anxiety and depression Carotid stenosis CVA (cerebral vascular accident) H. pylori infection On beta jacqueline at home Surgical History Amputation of right index finger History of angioplasty History of axillary surgery (08/21/20) History of cardiac catheterization (~03/30/16) History of endometrial ablation History of esophagogastroduodenoscopy (EGD) History of tubal ligation S/P LILY-BSO Family History Family History Mother Type 2 diabetes mellitus Hypertension Maternal Grandmother Myocardial infarction Social History Social History Household Members: None Housing: Apartment Are you a primary pharmacist critical care to a significant other at home: No Do you presently have visiting nurse or other home services: No Alcohol intake: never Patient Tobacco Use Status: Former Tobacco user Tobacco use type: Cigarette e-Cigarette/Vaping Use: Never Used Second Hand Smoke Exposure: No Advance Directives: No Advance Directives Information Provided: No service: No Current occupational status: unemployed Current occupation: right handed Cognitive needs: No Hearing needs: No Vision needs: No Physical Exam Vital Signs: Vital Signs: Last Vital Signs Temp 97.0 F 05/08/22 05:53 Pulse 68 05/08/22 05:53 Resp 18 05/08/22 05:53 BP 140/82 H 05/08/22 05:53 Pulse Ox 97 05/08/22 05:53 O2 Del Method 05/08/22 05:53 BMI result Body Mass Index 34.9 Appearance: Alert. Oriented X3. No acute distress. Eyes: Pupils equal, round and reactive to light. ENT: Pharynx normal. Neck: Normal inspection. Neck supple. CVS: Normal heart rate and rhythm. Pulses normal. Respiratory: No respiratory distress. Breath sounds normal. Abdomen: Soft and nontender. Back: R infrascapular area ttp reproduces pain Skin: Skin warm and dry. Normal skin color. Normal skin turgor. Extremities: No lower extremity edema. No calf ttp Neuro: Oriented X 3. No motor deficit. No sensory deficit. Course Course Course Narrative: suspect troponin due to CKD - repeat ordered for 7am VQ scan ordered signed out to Dr. Rainey - pain much improved, states she never had this pain before with her heart. MDM - Back Pain/Injury MDM Narrative Medical decision making narrative: 52 yo female with hx of DM, HTN, PVD, HLD, CVA, CAD s/p BMS to distal circumflex and mid stenosis of LAD, prior left apical mural thrombus - at this time she has pleuritic R posterior rib pain will need CXR, EKG, troponin x 2 - it is atypical pain for her not like prior chest pain. She will also need ddimer as well. IV morphine for pain. Dispo per results and findings. Lab Data Result diagrams: 05/08/22 05:08 05/08/22 05:07 Labs: Lab Results 05/08/22 05/08/22 05/08/22 Range/Units 05:07 05:07 05:07 WBC (4.8-10.8) X10*3/uL RBC (4.20-5.50) X10*6/uL Hgb (12.0-16.0) g/dl Hct (37.0-47.0) % MCV (80.0-98.0) fL MCH (27.0-33.0) pg MCHC (31.0-35.0) g/dl RDW (11.0-16.0) % Plt Count (160-400) X10*3/uL MPV (9.4-12.3) fL Immature Gran % (Auto) (0.0-0.4) % Neut % (Auto) (45-73) % Lymph % (Auto) (20-40) % [place] % (Auto) (2-11) % Eos % (Auto) (0-4) % Baso % (Auto) (0-2) % Lymph # (Auto) (1.2-4.9) X10*3/uL [place] # (Auto) (0.1-1.2) X10*3/uL Eos # (Auto) (0.0-0.4) X10*3/uL Baso # (Auto) (0.0-0.2) X10*3/uL Abs Immat Gran (auto) (0.00-0.03) X10*3/uL Absolute Neuts (auto) (2.0-8.3) x10*3/uL Absolute Nucleated RBC (0.0-0.012) X10*3/uL Nucleated RBC % (auto) (0.0-0.2) /100WBC PT 9.6 L (10.0-13.1) SEC INR 0.8 L (0.9-1.1) D-Dimer High Sensitivty 288 NG/ML Sodium 138 (135-145) mmol/L Potassium 4.1 (3.3-5.1) mmol/L Chloride 105 (96-108) mmol/L Carbon Dioxide 21 L (22-29) mmol/L Anion Gap 16 (12-20) BUN 50 H D (9-16) mg/dL Creatinine 2.68 H (0.5-1.4) mg/dL Estim Creat Clear Calc 28.6 Estimated GFR 19 Random Glucose 249 H (60-115) mg/dL Calcium 9.3 (8.4-10.2) mg/dL Magnesium 1.9 (1.6-2.6) mg/dL Total Bilirubin 0.2 (0.0-1.0) mg/dL Direct Bilirubin < 0.2 (0.0-0.5) mg/dL AST 15 (5-31) U/L ALT 17 (0-31) U/L Alkaline Phosphatase 101 D (39-117) U/L Troponin I High Sens (<3.5-17.0) ng/L B-Natriuretic Peptide 314 H (<100) pg/mL Total Protein 7.0 (6.5-8.0) g/dL Albumin 3.4 L (3.5-5.0) g/dL Lipase 22 (8-78) U/L COVID-19 ([facility]) (Negative) COVID-19 Clin Com 05/08/22 05/08/22 05/08/22 Range/Units 05:07 05:08 05:08 WBC 9.2 (4.8-10.8) X10*3/uL RBC 5.71 H (4.20-5.50) X10*6/uL Hgb 14.7 (12.0-16.0) g/dl Hct 45.4 (37.0-47.0) % MCV 79.5 L (80.0-98.0) fL MCH 25.7 L (27.0-33.0) pg MCHC 32.4 (31.0-35.0) g/dl RDW 13.1 (11.0-16.0) % Plt Count 287 (160-400) X10*3/uL MPV 11.0 (9.4-12.3) fL Immature Gran % (Auto) 0.2 (0.0-0.4) % Neut % (Auto) 71.6 (45-73) % Lymph % (Auto) 19.9 L (20-40) % [place] % (Auto) 7.1 (2-11) % Eos % (Auto) 0.9 (0-4) % Baso % (Auto) 0.3 (0-2) % Lymph # (Auto) 1.8 (1.2-4.9) X10*3/uL [place] # (Auto) 0.7 (0.1-1.2) X10*3/uL Eos # (Auto) 0.1 (0.0-0.4) X10*3/uL Baso # (Auto) 0.0 (0.0-0.2) X10*3/uL Abs Immat Gran (auto) 0.02 (0.00-0.03) X10*3/uL Absolute Neuts (auto) 6.6 (2.0-8.3) x10*3/uL Absolute Nucleated RBC 0.000 (0.0-0.012) X10*3/uL Nucleated RBC % (auto) 0.0 (0.0-0.2) /100WBC PT (10.0-13.1) SEC INR (0.9-1.1) D-Dimer High Sensitivty Cancelled NG/ML Sodium (135-145) mmol/L Potassium (3.3-5.1) mmol/L Chloride (96-108) mmol/L Carbon Dioxide (22-29) mmol/L Anion Gap (12-20) BUN (9-16) mg/dL Creatinine (0.5-1.4) mg/dL Estim Creat Clear Calc Estimated GFR Random Glucose (60-115) mg/dL Calcium (8.4-10.2) mg/dL Magnesium (1.6-2.6) mg/dL Total Bilirubin (0.0-1.0) mg/dL Direct Bilirubin (0.0-0.5) mg/dL AST (5-31) U/L ALT (0-31) U/L Alkaline Phosphatase (39-117) U/L Troponin I High Sens 199.9 H* (<3.5-17.0) ng/L B-Natriuretic Peptide (<100) pg/mL Total Protein (6.5-8.0) g/dL Albumin (3.5-5.0) g/dL Lipase (8-78) U/L COVID-19 ([facility]) (Negative) COVID-19 Clin Com 05/08/22 Range/Units 05:08 WBC (4.8-10.8) X10*3/uL RBC (4.20-5.50) X10*6/uL Hgb (12.0-16.0) g/dl Hct (37.0-47.0) % MCV (80.0-98.0) fL MCH (27.0-33.0) pg MCHC (31.0-35.0) g/dl RDW (11.0-16.0) % Plt Count (160-400) X10*3/uL MPV (9.4-12.3) fL Immature Gran % (Auto) (0.0-0.4) % Neut % (Auto) (45-73) % Lymph % (Auto) (20-40) % [place] % (Auto) (2-11) % Eos % (Auto) (0-4) % Baso % (Auto) (0-2) % Lymph # (Auto) (1.2-4.9) X10*3/uL [place] # (Auto) (0.1-1.2) X10*3/uL Eos # (Auto) (0.0-0.4) X10*3/uL Baso # (Auto) (0.0-0.2) X10*3/uL Abs Immat Gran (auto) (0.00-0.03) X10*3/uL Absolute Neuts (auto) (2.0-8.3) x10*3/uL Absolute Nucleated RBC (0.0-0.012) X10*3/uL Nucleated RBC % (auto) (0.0-0.2) /100WBC PT (10.0-13.1) SEC INR (0.9-1.1) D-Dimer High Sensitivty NG/ML Sodium (135-145) mmol/L Potassium (3.3-5.1) mmol/L Chloride (96-108) mmol/L Carbon Dioxide (22-29) mmol/L Anion Gap (12-20) BUN (9-16) mg/dL Creatinine (0.5-1.4) mg/dL Estim Creat Clear Calc Estimated GFR Random Glucose (60-115) mg/dL Calcium (8.4-10.2) mg/dL Magnesium (1.6-2.6) mg/dL Total Bilirubin (0.0-1.0) mg/dL Direct Bilirubin (0.0-0.5) mg/dL AST (5-31) U/L ALT (0-31) U/L Alkaline Phosphatase (39-117) U/L Troponin I High Sens (<3.5-17.0) ng/L B-Natriuretic Peptide (<100) pg/mL Total Protein (6.5-8.0) g/dL Albumin (3.5-5.0) g/dL Lipase (8-78) U/L COVID-19 ([facility]) Negative (Negative) COVID-19 Clin Com See Note ECG Data Attestation: I personally reviewed and interpreted this ECG as follows: ECG interpretation date: 05/08/22 ECG interpretation time: 04:46 Interpretation: Rate: 73 Rhythm: NSR [place]: left Normal P waves. Normal ROMULO. Normal QRS complex. ST T wave : no SUKH, inverted t wave in I and aVL, artifact noted in lateral leads, old q waves inf leads qTC: normal prior studies: no change from 2020 The study has been interpreted contemporaneously by me. . Discharge Plan Discharge Clinical Impression: Posterior chest pain Patient Disposition: Still a Patient Prescriptions: No Action (DME) blood-glucose meter [FreeStyle Lite Meter] Kit See Rx Instructions miscellaneous .MEDSUPPLY Qty: 1 0RF Rx Instructions: 4 times a day (DME) FreeStyle Precision [place] Strips Strip See Rx Instructions .MEDSUPPLY Qty: 25 6RF Rx Instructions: once a day for calibration irbesartan 150 mg tablet 150 mg PO DAILY Qty: 90 2RF aspirin 81 mg tablet,delayed release (DR/EC) 81 mg PO DAILY Qty: 90 3RF alcohol swabs Pads, Medicated 1 pad topical TID 90 Days Qty: 3 3RF rosuvastatin 20 mg tablet 20 mg PO BEDTIME Qty: 90 3RF (DME) FreeStyle Lite Strips Strip See Rx Instructions .ROUTE .MEDSUPPLY Qty: 400 3RF Rx Instructions: 4 times a day ezetimibe 10 mg tablet 10 mg PO DAILY Qty: 90 3RF cholecalciferol (vitamin D3) 50 mcg (2,000 unit) capsule 50 mcg PO DAILY Qty: 90 3RF (DME) FreeStyle Patrick 14 Day Sensor Kit See Rx Instructions .MEDSUPPLY Qty: 2 11RF Rx Instructions: every 14 days zolpidem 10 mg tablet 10 mg PO BEDTIME PRN (Reason: insomnia) 30 Days Qty: 30 2RF hydrocortisone [Proctosol HC] 2.5 % cream with perineal applicator 1 appl MA BID Qty: 28.35 3RF (DME) pen needle, diabetic 32 gauge x 5/32 needle See Rx Instructions .ROUTE .MEDSUPPLY Qty: 150 11RF Rx Instructions: 5 times a day amlodipine 10 mg tablet 10 mg PO DAILY 90 Days Qty: 90 2RF insulin lispro [Humalog KwikPen Insulin] 100 unit/mL insulin pen 10 - 24 unit subcut QID 30 Days Qty: 15 6RF Rx Instructions: 20 units before meals (16 units light meals), + 2u for bg over 200, +4 unit bg >250, 10 u with snack. insulin lispro 100 unit/mL insulin pen See Rx Instructions subcut USEASDIRECTD 30 Days Qty: 15 12RF Rx Instructions: 10-24 units20 units before meals (16 units light meals), + 2u for bg over 200, +4 unit bg >250, 10 u with snack. subcutaneously use as directed; metoprolol succinate 200 mg tablet extended release 24 hr 200 mg PO DAILY Qty: 90 2RF tramadol 50 mg tablet 50 mg PO Q6H PRN (Reason: pain) 30 Days Qty: 30 0RF diclofenac sodium [Arthritis Pain (diclofenac)] 1 % gel 4 g topical QID Qty: 3 3RF Rx Instructions: apply to single knee, ankle, foot; for foot includes sole/toes/top of foot (DME) FreeStyle Patrick 14 Day [place] Misc See Rx Instructions miscellaneous .MEDSUPPLY Qty: 1 0RF Rx Instructions: As directed (DME) lancets 33 gauge misc See Rx Instructions .ROUTE .MEDSUPPLY Qty: 100 11RF Rx Instructions: As directed 3x/day Farxiga 10 mg tablet 10 mg PO DAILY furosemide 20 mg tablet 20 mg PO DAILY Toujeo Max U-300 SoloStar 300 unit/mL (3 mL) insulin pen 64 unit subcut DAILY 50 Days Qty: 12 6RF glucose [Dex4 Glucose] 4 gram tablet,chewable 12 g PO Q15M PRN (Reason: hypoglycemia) Qty: 60 2RF Rx Instructions: until symptoms of low blood sugar are controlled omeprazole 20 mg capsule,delayed release(DR/EC) 20 mg PO DAILY Qty: 90 1RF Linzess 290 mcg capsule 290 mcg PO QAM 30 Days Qty: 30 6RF
[2022-05-08 05:10] VITALS: RESP 16
[2022-05-08] MEDS: Morphine Sulfate 4 MG/ML CARTRIDGE IVPUSH (05:10)
[2022-05-08] MEDS: ondansetron HCL 4 MG/2 ML VIAL IVPUSH (05:10)
[2022-05-08 05:13] LABS: Basophils Percent Auto 0.3 % (0-2); Eosinophils Absolute Auto 0.1 X10*3/uL (0.0-0.4); Eosinophils Percent Auto 0.9 % (0-4); Hematocrit 45.4 % (37.0-47.0); Hemoglobin 14.7 g/dl (12.0-16.0); Imm Gran Abs Auto 0.02 X10*3/uL (0.00-0.03); Imm Gran Pct Auto 0.2 % (0.0-0.4); Lymphocytes Absolute Auto 1.8 X10*3/uL (1.2-4.9); Lymphocytes Percent Auto 19.9 % (20-40); MANUAL DIFF FLAG NO; Mean Corpuscular HGB Conc 32.4 g/dl (31.0-35.0); Mean Corpuscular Hemoglobin 25.7 pg (27.0-33.0); Mean Corpuscular Volume 79.5 fL (80.0-98.0); Monocytes Absolute Auto 0.7 X10*3/uL (0.1-1.2); Monocytes Percent Auto 7.1 % (2-11); Neutrophils Absolute Auto 6.6 x10*3/uL (2.0-8.3); Neutrophils Percent Auto 71.6 % (45-73); Platelet Count 287 X10*3/uL (160-400); Red Blood Count 5.71 X10*6/uL (4.20-5.50); Red Cell Distribution Width 13.1 % (11.0-16.0); White Blood Count 9.2 X10*3/uL (4.8-10.8)
[2022-05-08 05:20] LABS: INTERNATIONAL NORM RATIO 0.8 (0.9-1.1); Prothrombin Time 9.6 SEC (10.0-13.1)
[2022-05-08 05:22] LABS: D Dimer High Sensitivity 288 NG/ML
[2022-05-08 05:30] LABS: COVID-19 Test Negative (Negative)
[2022-05-08 05:32] LABS: B Type Natriuretic Peptide 314 pg/mL (<100)
[2022-05-08 05:37] LABS: Alanine Aminotransferase 17 U/L (0-31); Albumin Level 3.4 g/dL (3.5-5.0); Alkaline Phosphatase 101 U/L (39-117); Anion Gap 16 (12-20); Aspartate Amino Transferase 15 U/L (5-31); Bilirubin Direct < 0.2 mg/dL (0.0-0.5); Bilirubin Total 0.2 mg/dL (0.0-1.0); Blood Urea Nitrogen 50 mg/dL (9-16); Calcium 9.3 mg/dL (8.4-10.2); Carbon Dioxide 21 mmol/L (22-29); Chloride 105 mmol/L (96-108); Creatinine Clr Calc Pharmacy 28.6; Estimated Glomerular Filt Rate 19; Glucose Random 249 mg/dL (60-115); Lipase 22 U/L (8-78); Magnesium 1.9 mg/dL (1.6-2.6); Potassium 4.1 mmol/L (3.3-5.1); Sodium 138 mmol/L (135-145)
[2022-05-08 05:40] LABS: Troponin-I High Sensitivity 199.9 ng/L (<3.5-17.0)
[2022-05-08 05:53] VITALS: BP 140/82; PULSE 68; RESP 18; TEMP 36.1; O2SAT 97
[2022-05-08 07:56] LABS: Troponin-I High Sensitivity 221.8 ng/L (<3.5-17.0)
[2022-05-08] MEDS: Acetaminophen 325 MG TABLET 975 MG PO (08:43)
[2022-05-08] MEDS: Cyclobenzaprine HCl 10 MG TABLET PO (08:43)
[2022-05-08] MEDS: Lidocaine 4 % Patch ADH..PATCH 1 PATCH TRANSDERMA (08:44)
[2022-05-08 08:46] VITALS: BP 143/77; PULSE 66; RESP 18; O2SAT 96
[2022-05-08 12:55] LABS: Troponin-I High Sensitivity 225.4 ng/L (<3.5-17.0)
--- NOTE | 2022-05-08 13:28 | PC.NURSE ---
Ambulation trial, o2 sat 97% p-84. sat 98%, p-88 after ambulation
[2022-05-08] MEDS: Rivaroxaban 15 MG TABLET PO (13:35)
== END 2022-05-08 13:41 | disposition home or self-care (01) ==
PROVIDERS: Student in an Organized Health Care Education/Training Program; Emergency Provider Emergency Medicine; PCP Internal Medicine
DX: R07.89 Other chest pain (principal); R06.02 Shortness of breath; M54.50 Low back pain, unspecified; Z20.822 Contact with and (suspected) exposure to COVID-19; Z87.891 Personal history of nicotine dependence; Z79.899 Other long term (current) drug therapy
CPT/HCPCS: 36415; 71045; 78580; 80048; 80076; 83690; 83735; 83880; 84484; 85025; 85379; 85610; 87635; 93005; 96374; 96375; 99284; A9540; J2270; J2405

== ENCOUNTER → 2022-05-10 13:54 | Outpatient (BNVA) | payer OTHER, SELFPAY | PROVIDERS: PCP Internal Medicine; Referring Provider Internal Medicine; Visit Provider Internal Medicine | DX: I25.10 Atherosclerotic heart disease of native coronary artery without angina pectoris (principal); I25.42 Coronary artery dissection; I51.3 Intracardiac thrombosis, not elsewhere classified; I63.40 Cerebral infarction due to embolism of unspecified cerebral artery; E11.8 Type 2 diabetes mellitus with unspecified complications; E11.22 Type 2 diabetes mellitus with diabetic chronic kidney disease; I12.9 Hypertensive chronic kidney disease with stage 1 through stage 4 chronic kidney disease, or unspecified chronic kidney disease; N18.9 Chronic kidney disease, unspecified; I26.99 Other pulmonary embolism without acute cor pulmonale | CPT/HCPCS: 99212 ==

== ENCOUNTER → 2022-06-02 10:48 | Outpatient (BNVA) | payer OTHER, SELFPAY | PROVIDERS: PCP Internal Medicine; Visit Provider Internal Medicine Pulmonary Disease | DX: I26.99 Other pulmonary embolism without acute cor pulmonale (principal); R06.09 Other forms of dyspnea; Z86.73 Personal history of transient ischemic attack (TIA), and cerebral infarction without residual deficits; Z79.01 Long term (current) use of anticoagulants | CPT/HCPCS: 99202 ==

== ENCOUNTER 2022-07-07 07:54 | Outpatient (REF) | payer OTHER, SELFPAY ==
[2022-07-07 09:51] LABS: MANUAL DIFF FLAG NO
[2022-07-07 10:18] LABS: Basophils Absolute Auto 0.1 X10*3/uL (0.0-0.2); Basophils Percent Auto 0.5 % (0-2); Eosinophils Absolute Auto 0.1 X10*3/uL (0.0-0.4); Eosinophils Percent Auto 0.9 % (0-4); Hematocrit 46.8 % (37.0-47.0); Hemoglobin 14.8 g/dl (12.0-16.0); Imm Gran Abs Auto 0.03 X10*3/uL (0.00-0.03); Imm Gran Pct Auto 0.3 % (0.0-0.4); Lymphocytes Absolute Auto 2.5 X10*3/uL (1.2-4.9); Lymphocytes Percent Auto 26.6 % (20-40); Mean Corpuscular HGB Conc 31.6 g/dl (31.0-35.0); Mean Corpuscular Hemoglobin 25.7 pg (27.0-33.0); Mean Corpuscular Volume 81.4 fL (80.0-98.0); Mean Platelet Volume 11.8 fL (9.4-12.3); Monocytes Absolute Auto 0.6 X10*3/uL (0.1-1.2); Monocytes Percent Auto 6.4 % (2-11); Neutrophils Absolute Auto 6.2 x10*3/uL (2.0-8.3); Neutrophils Percent Auto 65.3 % (45-73); Platelet Count 259 X10*3/uL (160-400); Red Blood Count 5.75 X10*6/uL (4.20-5.50); White Blood Count 9.6 X10*3/uL (4.8-10.8)
[2022-07-07 10:46] LABS: Anion Gap 18 (12-20); Blood Urea Nitrogen 48 mg/dL (9-16); Carbon Dioxide 21 mmol/L (22-29); Chloride 104 mmol/L (96-108); Estimated Glomerular Filt Rate 17; Glucose Random 242 mg/dL (60-115); Potassium 4.7 mmol/L (3.3-5.1); Sodium 138 mmol/L (135-145)
== END 2022-07-07 07:55 | disposition home or self-care (01) ==
LOC: HO.LAB 07:54
PROVIDERS: PCP Internal Medicine; Visit Provider Internal Medicine Hypertension Specialist
DX: E11.22 Type 2 diabetes mellitus with diabetic chronic kidney disease (principal); N18.4 Chronic kidney disease, stage 4 (severe)
CPT/HCPCS: 36415; 80048; 85025

== ENCOUNTER 2022-07-26 12:32 | Outpatient (REF) | payer OTHER, SELFPAY ==
--- NOTE | ~2022-07-26 | MM_ITS ---
EXAMINATION: MM SCREENING DIGITAL BREAST TOMOSYNTHESIS, BILATERAL CLINICAL INFORMATION: Screening. Asymptomatic. The lifetime risk of breast cancer based on the Tyrer-Cuzick Model is 9%. COMPARISON: Mammography: 07/23/2021, 06/10/2020, 07/19/2019 TECHNIQUE: Digital breast tomosynthesis is performed in both the craniocaudal and mediolateral oblique views along with computer-aided detection (CAD). Synthesized 2D images are generated from the tomosynthesis. FINDINGS: There are scattered areas of fibroglandular density (ACR BI-RADS breast composition Category b). There are no significant masses, abnormal calcifications, or other abnormalities. No developing density or architectural abnormality. There are scattered bilateral vascular and round calcifications. Grouped calcifications mid upper outer right breast are stable. The axilla and skin contours are unremarkable. MM/MM tomosynthesis screening BI IMPRESSION: No mammographic evidence of malignancy. ASSESSMENT: BI-RADS 2: Benign RECOMMENDATION: Routine annual mammography screening. This patient's information was entered into a reminder system with a target due date for their next mammogram.
== END 2022-07-26 12:33 | disposition home or self-care (01) ==
LOC: HO.MAMMO 12:32
PROVIDERS: PCP Internal Medicine; Visit Provider Internal Medicine
DX: Z12.31 Encounter for screening mammogram for malignant neoplasm of breast (principal); I25.10 Atherosclerotic heart disease of native coronary artery without angina pectoris; I25.42 Coronary artery dissection; I51.3 Intracardiac thrombosis, not elsewhere classified; I63.40 Cerebral infarction due to embolism of unspecified cerebral artery; I12.9 Hypertensive chronic kidney disease with stage 1 through stage 4 chronic kidney disease, or unspecified chronic kidney disease; N18.9 Chronic kidney disease, unspecified; E11.22 Type 2 diabetes mellitus with diabetic chronic kidney disease; I26.99 Other pulmonary embolism without acute cor pulmonale
CPT/HCPCS: 77063; 77067; 99212

== ENCOUNTER 2022-10-25 11:49 | Emergency (ER) | payer OTHER, SELFPAY ==
--- NOTE | ~2022-10-25 | XR_ITS ---
EXAMINATION: XR CHEST CLINICAL INFORMATION: Chest pain COMPARISON: Chest x-ray April 2022 TECHNIQUE: 2 views of the chest were obtained. FINDINGS: No significant abnormality is noted involving the heart, lungs, mediastinum, bony thorax or soft tissues. XR/XR chest 2V IMPRESSION: Unremarkable examination.
[2022-10-25 11:57] VITALS: BP 166/81; PULSE 68; RESP 18; TEMP 37.4; O2SAT 99
--- NOTE | 2022-10-25 12:01 | ED.GENADULT ---
HPI - General Adult General Chief complaint: Back Pain/Injury Stated complaint: R UPPER BACK PAIN, NO INJURY PER EMS Time Seen by Provider: 10/25/22 12:01 Source: patient and EMS Mode of arrival: EMS Limitations: no limitations History of Present Illness HPI narrative: Patient is a 52 year old assigned female at with a history of CHF, HTN, and DM presenting to the emergency department today with right sided flank pain. Patient states that she woke up and felt her right flank hurt. Patient states that she went back to sleep and when she woke up again, she still felt the pain. Patient states that the pain is worse when she pushes on it and if she sits still, it doesn't hurt. Patient states that she is still taking her blood thinner for her previous pulmonary embolism. Patient denies any dizziness, lightheadedness, abdominal pain, nausea, vomiting, fever, chills, blurry vision, double vision, loss of vision, chest pain, difficulty breathing, shortness of breath, back pain, night sweats, pain with urination, increased urinary frequency, increased urinary urgency, blood in her urine or stool, syncope or a near syncopal episode, recent trauma or falls, bowel incontinence, bladder incontinence, bowel retention, bladder retention, or any other complaints at this time. Onset (ago): hour(s) Radiation: non-radiation Severity: mild Severity scale (1-10): 3 Relieving factors: none Exacerbating factors: none Associated symptoms: denies other symptoms Treatments prior to arrival: none Related Data Home Medications Medication Instructions Recorded Confirmed dapagliflozin 10 mg tablet 10 mg PO DAILY 03/15/22 07/26/22 ([facility]) amlodipine 5 mg tablet 5 mg PO DAILY 07/26/22 07/26/22 Previous Rx's Medication Instructions Recorded FreeStyle Lite Meter #1 ea 02/04/21 (blood-glucose meter) flash glucose scanning reader #1 ea 03/02/21 (FreeStyle Patrick 14 Day [place]) FreeStyle Precision Jonathan Strips #25 ea 03/09/21 (blood sugar diagnostic) diclofenac sodium 1 % topical gel 4 g topical QID #3 tubes 06/24/21 (Arthritis Pain (diclofenac)) lancets 33 gauge #100 ea 10/07/21 alcohol swabs 1 pad topical TID 90 days #3 ea 11/30/21 aspirin 81 mg tablet,delayed 81 mg PO DAILY #90 tabs 11/30/21 release rosuvastatin 20 mg tablet 20 mg PO BEDTIME #90 tabs 12/01/21 ezetimibe 10 mg tablet 10 mg PO DAILY #90 tabs 12/24/21 glucose 4 gram chewable tablet 12 g PO Q15M PRN hypoglycemia #60 01/10/22 (Dex4 Glucose) tabs flash glucose sensor (FreeStyle #2 ea 01/17/22 Patrick 14 Day Sensor kit) pen needle, diabetic 32 gauge x #150 ea 03/17/22 linaclotide 290 mcg capsule 290 mcg PO QAM 30 days #30 caps 04/05/22 (Linzess) insulin lispro 100 unit/mL See Rx Instructions subcut 04/15/22 subcutaneous pen USEASDIRECTD 30 days #15 mL insulin lispro 100 unit/mL 10 - 24 unit (0.1 - 0.24 mL) 04/15/22 subcutaneous pen (Humalog KwikPen subcut QID 30 days #15 mL (U-100) Insulin) metoprolol succinate 200 mg 200 mg PO DAILY #90 tabs 04/21/22 tablet,extended release 24 hr irbesartan 150 mg tablet 150 mg PO DAILY #90 tabs 05/27/22 omeprazole 20 mg capsule,delayed 20 mg PO DAILY #90 caps 05/27/22 release rivaroxaban 20 mg tablet (Xarelto) 20 mg PO DAILY #90 tabs 07/06/22 Proctosol HC 2.5 % topical cream 1 appl [place] BID #28.35 grams 07/15/22 perineal applicator (hydrocortisone) blood sugar diagnostic (FreeStyle #350 ea 08/09/22 Lite Strips) cholecalciferol (vitamin D3) 50 50 mcg PO DAILY #90 caps 08/09/22 mcg (2,000 unit) capsule zolpidem 10 mg tablet 10 mg PO BEDTIME PRN insomnia 30 08/29/22 days #30 tabs blood pressure monitor (Blood #1 ea 08/31/22 Pressure Kit) insulin glargine U-300 conc 300 60 unit (0.2 mL) subcut DAILY 50 08/31/22 unit/mL (3 mL) subcutaneous pen days #10 mL (Toujeo Max U-300 SoloStar) tramadol 50 mg tablet 50 mg PO Q6H PRN pain 30 days #30 10/19/22 tabs Allergies Allergy/AdvReac Type Severity Reaction Status Date / Time cephalexin [From KEFLEX] Allergy Intermediate HIVES Verified 07/26/22 14:08 Review of Systems Constitutional: Constitutional: Reports no additional constitutional complaints, Denies chills, Denies fever(s) and Denies night sweats Eyes: Eyes: Reports no additional eye complaints, Denies blurry vision, Denies change in vision, Denies diplopia, Denies eye discharge, Denies loss of vision and Denies eye pain ENT: Denies dizziness Cardiovascular: Cardiovascular: Reports no additional cardiovascular complaints, Denies chest pain, Denies lightheadedness, Denies Loss of Consciousness and Denies dyspnea Respiratory: Respiratory: Reports no additional respiratory complaints and Denies dyspnea Gastrointestinal: Gastrointestinal: Reports no additional gastrointestinal complaints, Denies abdominal pain, Denies melena, Denies hematochezia, Denies change in bowel habits and Denies change in stool character Genitourinary: Genitourinary: Denies hematuria, Denies urinary frequency, Denies dysuria, Denies urinary incontinence, Denies urinary hesitancy and Denies urinary urgency Musculoskeletal: Musculoskeletal: Reports no additional musculoskeletal complaints, Denies numbness and Denies tingling Comments: right sided flank pain Neurologic: Denies dizziness, Denies loss of vision, Denies numbness and Denies tingling Psychiatric: Psychiatric: Reports no additional psychiatric complaints Endocrine: Endocrine: Reports no additional endocrine complaints Hematologic/Lymphatic: Hematologic/Lymphatic: Reports no additional hematologic/lymphatic complaints Allergic/Immunologic: Allergic/Immunologic: Reports no additional allergic/immunologic complaints [facility] Past Medical History Attestation statement: The following information was validated with the patient. Source: old records reviewed and nursing notes reviewed Medical History Acute angle-closure glaucoma Anxiety and depression Apical mural thrombus Axillary hidradenitis suppurativa Carotid stenosis Cerebrovascular accident, embolic Coronary artery disease Coronary artery dissection CVA (cerebral vascular accident) Diabetic nephropathy associated with type 2 diabetes mellitus Diabetic polyneuropathy associated with type 2 diabetes mellitus Essential hypertension GERD (gastroesophageal reflux disease) H. pylori infection Hidradenitis suppurativa of right axilla HTN (hypertension) Hypercholesterolemia Hyperlipidemia, unspecified Hypertension senior care (current) use of insulin Obesity (BMI 30-39.9) On beta jacqueline at home Peripheral vascular disease Precordial chest pain Proliferative diabetic retinopathy associated with type 2 diabetes mellitus Pulmonary embolism Skin tag Type 2 diabetes mellitus with chronic kidney disease Type 2 diabetes mellitus with hyperglycemia Vitamin D deficiency Surgical History Amputation of right index finger History of angioplasty History of axillary surgery (08/21/20) History of cardiac catheterization (~03/30/16) History of endometrial ablation History of esophagogastroduodenoscopy (EGD) History of tubal ligation S/P LILY-BSO Family History Family History Mother Type 2 diabetes mellitus Hypertension Maternal Grandmother Myocardial infarction Social History Social History Household Members: None Housing: Apartment Are you a primary healthcare network pricing consultant to a significant other at home: No Do you presently have visiting nurse or other home services: No Alcohol intake: never Patient Tobacco Use Status: Former Tobacco user Tobacco use type: Cigarette Smoked in Last 30 Days: No e-Cigarette/Vaping Use: Never Used Second Hand Smoke Exposure: No Use of substances other than those prescribed or required for medical reasons: Yes Substance Use Type: Marijuana Advance Directives: Yes Advance Directives Information Provided: Yes Advance Directives on File: No service: No Current occupational status: unemployed Cognitive needs: No Hearing needs: No Vision needs: Yes Physical Exam ED Vital Signs: Vital Signs - 24 hr 10/25/22 11:57 Temperature 99.3 F Pulse Rate 68 Respiratory Rate 18 Blood Pressure 166/81 H Pulse Oximetry 99 Oxygen Delivery Method Room Air BMI result Body Mass Index 32.5 Const General: cooperative, no acute distress, alert and awake Nutritional Appearance: well nourished Orientation/consciousness: patient oriented x3 Limitations: no limitations HENMT Head: Yes normal to inspection and Yes atraumatic Ears: hearing grossly normal bilaterally and external ears normal General nose exam: Normal external nose present, no nasal discharge noted and no epistaxis Face and sinus: Yes normal facial exam, No abrasion and No laceration Mouth: Normal oral and palatal mucosa present, no drooling and no muffled voice Eyes General: appearance normal, both eyes and all related structures Periorbital: periorbital findings normal Eyelids: Yes eyelids normal Conjunctivae: conjunctivae normal Pupils: Equal, round and reactive pupils present EOM: EOMs intact bilaterally Neck Neck: Yes normal visual inspection, Yes full ROM and Yes no lymphadenopathy Chest Chest palpation & inspection: normal inspection of the chest Chest/axillae images: 1. Pain to palpation to this area. Resp Effort & Inspection: normal respiratory effort and able to speak in complete sentences Auscultation: clear to auscultation bilaterally Cardio Rate: regular rate Rhythm: regular rhythm GI Inspection: Yes normal to inspection Palpation (GI): Soft to palpation, not firm, nontender, no guarding and not rigid Neuro General: patient oriented x3 and moves all extremities Cranial nerves: Yes Equal, round and reactive pupils present Cognition (Neuro): normal cognition Motor exam (neuro): 5/5 motor strength present throughout Sensory Exam: Normal double simultaneous stimulation for sensation Coordination: [id number] test normal Extrem General: Yes normal to inspection, Yes full ROM and Yes capillary refill normal Psych Appearance: grossly normal Mental Status: mental status grossly normal Affect: normal affect Attitude: cooperative Thought process: Normal thought process present Thought content: Normal thought content present Insight: Good insight present (Psych) Medications Administered Discontinued Medications Generic Name Dose Route Start Last Admin Trade Name Freq PRN Reason Stop Dose Admin Hydrocodone Bitart/Acetaminophen 1 tab 10/25/22 12:05 10/25/22 12:16 Hydrocodone Bit/Acetam 5/325 Tablet PO 10/25/22 12:06 1 tab ONCE ONE Administration Hydrocodone Bitart/Acetaminophen 1 tab 10/25/22 15:00 10/25/22 15:09 Hydrocodone Bit/Acetam 5/325 Tablet PO 10/25/22 15:01 1 tab ONCE ONE Administration Medical Decision Making Medical Decision Making [facility] Narrative: Patient is a 52 year old assigned female at with a history of CHF, HTN, and DM presenting to the emergency department today with right sided chest wall pain. Patient's physical exam showed pain to palpation of the right upper chest but was otherwise unremarkable. Patient's blood work showed an elevated troponin of 139.9 with a repeat of 137.9. Patient states that this is chronic for her and she already follows with a Service Aide. Patient's creatinine is elevated at 2.42 and is chronically elevated, this is likely what causes her chronically elevated troponin. Patient's EKG was unremarkable. Patient's chest x-ray showed no acute process. Patient's clinical presentation is most consistent with right upper chest wall pain, likely secondary from sleeping at an awkward angle. Patient's presentation is not consistent with a cardiac pathology. Patient's d dimer was negative. I explained my physical exam findings as well as all test results to the patient. I answered all questions asked by the patient. Patient received PO [place] which she stated helped her symptoms significantly. I stressed the importance of the patient taking her medication as prescribed. 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 I stressed the importance of the patient returning to the emergency department immediately if her symptoms were to worsen or if she were to develop any dizziness, shortness of breath, difficulty breathing, chest pain, blurry vision, loss of vision, nausea, vomiting, abdominal pain, fever, chills, back pain, or any other complaints. Patient verbalized agreement and understanding with this treatment plan and discharge. Differential Diagnosis Differential Diagnoses: The differential diagnosis associated with the presentation includes chest wall pain, reproducible chest wall pain Lab Data MDM Lab Attestation statement: I reviewed the patient's lab results. 10/25/22 12:32 10/25/22 12:32 Labs: Lab Results 10/25/22 10/25/22 10/25/22 Range/Units 12:32 12:32 12:32 WBC 8.6 (4.8-10.8) X10*3/uL RBC 5.84 H (4.20-5.50) X10*6/uL Hgb 14.9 (12.0-16.0) g/dl Hct 46.1 (37.0-47.0) % MCV 78.9 L (80.0-98.0) fL MCH 25.5 L (27.0-33.0) pg MCHC 32.3 (31.0-35.0) g/dl RDW 15.9 (11.0-16.0) % Plt Count 259 (160-400) X10*3/uL MPV 11.0 (9.4-12.3) fL Immature Gran % (Auto) 0.2 (0.0-0.4) % Neut % (Auto) 66.6 (45-73) % Lymph % (Auto) 23.9 (20-40) % [place] % (Auto) 7.5 (2-11) % Eos % (Auto) 1.2 (0-4) % Baso % (Auto) 0.6 (0-2) % Lymph # (Auto) 2.1 (1.2-4.9) X10*3/uL [place] # (Auto) 0.7 (0.1-1.2) X10*3/uL Eos # (Auto) 0.1 (0.0-0.4) X10*3/uL Baso # (Auto) 0.1 (0.0-0.2) X10*3/uL Abs Immat Gran (auto) 0.02 (0.00-0.03) X10*3/uL Absolute Neuts (auto) 5.7 (2.0-8.3) x10*3/uL Absolute Nucleated RBC 0.000 (0.0-0.012) X10*3/uL Nucleated RBC % (auto) 0.0 (0.0-0.2) /100WBC PT (10.0-13.1) SEC INR (0.9-1.1) APTT (26.0-36.4) SEC D-Dimer High Sensitivty NG/ML Sodium 138 (135-145) mmol/L Potassium 4.4 (3.3-5.1) mmol/L Chloride 109 H (96-108) mmol/L Carbon Dioxide 20 L (22-29) mmol/L Anion Gap 13 (12-20) BUN 43 H (9-16) mg/dL Creatinine 2.42 H (0.5-1.4) mg/dL Estim Creat Clear Calc 30.6 Estimated GFR 21 POC Glucose (60-115) mg/dL Random Glucose 119 H (60-115) mg/dL Calcium 9.8 (8.4-10.2) mg/dL Magnesium 1.9 (1.6-2.6) mg/dL Total Bilirubin 0.3 (0.0-1.0) mg/dL AST 17 (5-31) U/L ALT 16 (0-31) U/L Alkaline Phosphatase 72 (39-117) U/L Troponin I High Sens 139.9 H* (<3.5-17.0) ng/L Total Protein 6.8 (6.5-8.0) g/dL Albumin 3.4 L (3.5-5.0) g/dL Influenza Type A (PCR) (Negative) Influenza Type B (PCR) (Negative) RSV RNA Qual (PCR) (Negative) SARS-CoV-2 RNA (RT-PCR) (Negative) 10/25/22 10/25/22 10/25/22 Range/Units 12:33 14:04 14:22 WBC (4.8-10.8) X10*3/uL RBC (4.20-5.50) X10*6/uL Hgb (12.0-16.0) g/dl Hct (37.0-47.0) % MCV (80.0-98.0) fL MCH (27.0-33.0) pg MCHC (31.0-35.0) g/dl RDW (11.0-16.0) % Plt Count (160-400) X10*3/uL MPV (9.4-12.3) fL Immature Gran % (Auto) (0.0-0.4) % Neut % (Auto) (45-73) % Lymph % (Auto) (20-40) % [place] % (Auto) (2-11) % Eos % (Auto) (0-4) % Baso % (Auto) (0-2) % Lymph # (Auto) (1.2-4.9) X10*3/uL [place] # (Auto) (0.1-1.2) X10*3/uL Eos # (Auto) (0.0-0.4) X10*3/uL Baso # (Auto) (0.0-0.2) X10*3/uL Abs Immat Gran (auto) (0.00-0.03) X10*3/uL Absolute Neuts (auto) (2.0-8.3) x10*3/uL Absolute Nucleated RBC (0.0-0.012) X10*3/uL Nucleated RBC % (auto) (0.0-0.2) /100WBC PT 10.2 (10.0-13.1) SEC INR 0.9 (0.9-1.1) APTT 26.4 (26.0-36.4) SEC D-Dimer High Sensitivty NG/ML Sodium (135-145) mmol/L Potassium (3.3-5.1) mmol/L Chloride (96-108) mmol/L Carbon Dioxide (22-29) mmol/L Anion Gap (12-20) BUN (9-16) mg/dL Creatinine (0.5-1.4) mg/dL Estim Creat Clear Calc Estimated GFR POC Glucose 112 (60-115) mg/dL Random Glucose (60-115) mg/dL Calcium (8.4-10.2) mg/dL Magnesium (1.6-2.6) mg/dL Total Bilirubin (0.0-1.0) mg/dL AST (5-31) U/L ALT (0-31) U/L Alkaline Phosphatase (39-117) U/L Troponin I High Sens (<3.5-17.0) ng/L Total Protein (6.5-8.0) g/dL Albumin (3.5-5.0) g/dL Influenza Type A (PCR) NEGATIVE (Negative) Influenza Type B (PCR) NEGATIVE (Negative) RSV RNA Qual (PCR) NEGATIVE (Negative) SARS-CoV-2 RNA (RT-PCR) NEGATIVE (Negative) 10/25/22 10/25/22 Range/Units 14:22 14:22 WBC (4.8-10.8) X10*3/uL RBC (4.20-5.50) X10*6/uL Hgb (12.0-16.0) g/dl Hct (37.0-47.0) % MCV (80.0-98.0) fL MCH (27.0-33.0) pg MCHC (31.0-35.0) g/dl RDW (11.0-16.0) % Plt Count (160-400) X10*3/uL MPV (9.4-12.3) fL Immature Gran % (Auto) (0.0-0.4) % Neut % (Auto) (45-73) % Lymph % (Auto) (20-40) % [place] % (Auto) (2-11) % Eos % (Auto) (0-4) % Baso % (Auto) (0-2) % Lymph # (Auto) (1.2-4.9) X10*3/uL [place] # (Auto) (0.1-1.2) X10*3/uL Eos # (Auto) (0.0-0.4) X10*3/uL Baso # (Auto) (0.0-0.2) X10*3/uL Abs Immat Gran (auto) (0.00-0.03) X10*3/uL Absolute Neuts (auto) (2.0-8.3) x10*3/uL Absolute Nucleated RBC (0.0-0.012) X10*3/uL Nucleated RBC % (auto) (0.0-0.2) /100WBC PT (10.0-13.1) SEC INR (0.9-1.1) APTT (26.0-36.4) SEC D-Dimer High Sensitivty 216 NG/ML Sodium (135-145) mmol/L Potassium (3.3-5.1) mmol/L Chloride (96-108) mmol/L Carbon Dioxide (22-29) mmol/L Anion Gap (12-20) BUN (9-16) mg/dL Creatinine (0.5-1.4) mg/dL Estim Creat Clear Calc Estimated GFR POC Glucose (60-115) mg/dL Random Glucose (60-115) mg/dL Calcium (8.4-10.2) mg/dL Magnesium (1.6-2.6) mg/dL Total Bilirubin (0.0-1.0) mg/dL AST (5-31) U/L ALT (0-31) U/L Alkaline Phosphatase (39-117) U/L Troponin I High Sens 137.9 H* (<3.5-17.0) ng/L Total Protein (6.5-8.0) g/dL Albumin (3.5-5.0) g/dL Influenza Type A (PCR) (Negative) Influenza Type B (PCR) (Negative) RSV RNA Qual (PCR) (Negative) SARS-CoV-2 RNA (RT-PCR) (Negative) Independent Interpretation I performed an independent interpretation of an: EKG Interpretation: Vent. Rate: 069 BPM ? ? Atrial Rate: 069 BPM P-R Int: 134 ms? QRS Dur: 086 ms QT Int: 420 ms ? ? ? P-R-T Axes: 026 -24 117 degrees QTc Int: 450 ms ? Normal sinus rhythm Left ventricular hypertrophy with repolarization abnormality ( R in aVL , [place] product ) Possible Lateral infarct (cited on or before 17-SEP-2016) Inferior infarct (cited on or before 17-SEP-2016) Abnormal ECG When compared with ECG of 08-MAY-2022 04:34, No significant change was found ? DD/ 1235 Radiology Impression Discussion of test interpretation with radiology: I have reviewed the radiologist's reading. Radiologist Impression: My interpretation is in agreement with the radiologist's impression of this imaging study. EXAMINATION: XR CHEST CLINICAL INFORMATION: Chest pain COMPARISON: Chest x-ray April 2022 TECHNIQUE: 2 views of the chest were obtained. FINDINGS: No significant abnormality is noted involving the heart, lungs, mediastinum, bony thorax or soft tissues. XR/XR chest 2V IMPRESSION: Unremarkable examination. Dictated By: Abimael De Leon MD Signed By: Electronically signed by Abimael De Leon MD 10/25/22 1612 Discharge Plan Discharge Clinical Impression: Musculoskeletal pain Patient Disposition: Home, Self-Care Instructions: Musculoskeletal Pain (ED) Additional Instructions: Follow up with your primary care provider. Return to the emergency department immediately if your symptoms worsen or if you develop any dizziness, shortness of breath, difficulty breathing, chest pain, blurry vision, loss of vision, nausea, vomiting, abdominal pain, fever, chills, back pain, or any other complaints. Prescriptions: No Action (DME) blood-glucose meter [FreeStyle Lite Meter] Kit See Rx Instructions miscellaneous .MEDSUPPLY Qty: 1 0RF Rx Instructions: 4 times a day (DME) FreeStyle Precision [place] Strips Strip See Rx Instructions .MEDSUPPLY Qty: 25 6RF Rx Instructions: once a day for calibration aspirin 81 mg tablet,delayed release (DR/EC) 81 mg PO DAILY Qty: 90 3RF alcohol swabs Pads, Medicated 1 pad topical TID 90 Days Qty: 3 3RF rosuvastatin 20 mg tablet 20 mg PO BEDTIME Qty: 90 3RF ezetimibe 10 mg tablet 10 mg PO DAILY Qty: 90 3RF (DME) FreeStyle Patrick 14 Day Sensor Kit See Rx Instructions .MEDSUPPLY Qty: 2 11RF Rx Instructions: every 14 days (DME) pen needle, diabetic 32 gauge x 5/32 needle See Rx Instructions .ROUTE .MEDSUPPLY Qty: 150 11RF Rx Instructions: 5 times a day insulin lispro [Humalog KwikPen Insulin] 100 unit/mL insulin pen 10 - 24 unit subcut QID 30 Days Qty: 15 6RF Rx Instructions: 20 units before meals (16 units light meals), + 2u for bg over 200, +4 unit bg >250, 10 u with snack. insulin lispro 100 unit/mL insulin pen See Rx Instructions subcut USEASDIRECTD 30 Days Qty: 15 12RF Rx Instructions: 10-24 units20 units before meals (16 units light meals), + 2u for bg over 200, +4 unit bg >250, 10 u with snack. subcutaneously use as directed; metoprolol succinate 200 mg tablet extended release 24 hr 200 mg PO DAILY Qty: 90 2RF omeprazole 20 mg capsule,delayed release(DR/EC) 20 mg PO DAILY Qty: 90 1RF irbesartan 150 mg tablet 150 mg PO DAILY Qty: 90 2RF Xarelto 20 mg tablet 20 mg PO DAILY Qty: 90 2RF Rx Instructions: must administer with evening meal hydrocortisone [Proctosol HC] 2.5 % cream with perineal applicator 1 appl [place] BID Qty: 28.35 3RF (DME) FreeStyle Lite Strips Strip See Rx Instructions .ROUTE .MEDSUPPLY Qty: 350 3RF Rx Instructions: 4 times a day cholecalciferol (vitamin D3) 50 mcg (2,000 unit) capsule 50 mcg PO DAILY Qty: 90 3RF zolpidem 10 mg tablet 10 mg PO BEDTIME PRN (Reason: insomnia) 30 Days Qty: 30 2RF tramadol 50 mg tablet 50 mg PO Q6H PRN (Reason: pain) 30 Days Qty: 30 0RF diclofenac sodium [Arthritis Pain (diclofenac)] 1 % gel 4 g topical QID Qty: 3 3RF Rx Instructions: apply to single knee, ankle, foot; for foot includes sole/toes/top of foot (DME) blood pressure monitor [Blood Pressure Kit] Kit See Rx Instructions .ROUTE .MEDSUPPLY Qty: 1 0RF Rx Instructions: As directed Toujeo Max U-300 SoloStar 300 unit/mL (3 mL) insulin pen 60 unit subcut DAILY 50 Days Qty: 10 6RF (DME) FreeStyle Patrick 14 Day [place] Misc See Rx Instructions miscellaneous .MEDSUPPLY Qty: 1 0RF Rx Instructions: As directed (DME) lancets 33 gauge misc See Rx Instructions .ROUTE .MEDSUPPLY Qty: 100 11RF Rx Instructions: As directed 3x/day Farxiga 10 mg tablet 10 mg PO DAILY glucose [Dex4 Glucose] 4 gram tablet,chewable 12 g PO Q15M PRN (Reason: hypoglycemia) Qty: 60 2RF Rx Instructions: until symptoms of low blood sugar are controlled amlodipine 5 mg tablet 5 mg PO DAILY Linzess 290 mcg capsule 290 mcg PO QAM 30 Days Qty: 30 6RF Referrals: Po,Alfredo Whitt MD [Primary Care Provider] - Print Language: Sammarinese
[2022-10-25 12:02] VITALS: BP 190/100; PULSE 78; O2SAT 97; BMI 32.5
--- NOTE | 2022-10-25 12:04 | ECG_ITS ---
Test Reason : BACK PAIN Blood Pressure : / mmHG Vent. Rate : 069 BPM Atrial Rate : 069 BPM P-R Int : 134 ms QRS Dur : 086 ms QT Int : 420 ms P-R-T Axes : 026 -24 117 degrees QTc Int : 450 ms Normal sinus rhythm Left ventricular hypertrophy with repolarization abnormality ( R in aVL , [place] product ) Possible Lateral infarct (cited on or before 17-SEP-2016) Inferior infarct (cited on or before 17-SEP-2016) Abnormal ECG When compared with ECG of 08-MAY-2022 04:34, No significant change was found Referred By: Shari Wilkins Electronically Signed By:KAMARI WEST MD
[2022-10-25] MEDS: HYDROcodone Bit/Acetam 5/325 TABLET 1 TAB PO ×2 (12:16→15:09)
[2022-10-25 12:43] LABS: MANUAL DIFF FLAG NO
[2022-10-25 12:47] LABS: Basophils Absolute Auto 0.1 X10*3/uL (0.0-0.2); Basophils Percent Auto 0.6 % (0-2); Eosinophils Absolute Auto 0.1 X10*3/uL (0.0-0.4); Eosinophils Percent Auto 1.2 % (0-4); Hematocrit 46.1 % (37.0-47.0); Hemoglobin 14.9 g/dl (12.0-16.0); Imm Gran Abs Auto 0.02 X10*3/uL (0.00-0.03); Imm Gran Pct Auto 0.2 % (0.0-0.4); Lymphocytes Absolute Auto 2.1 X10*3/uL (1.2-4.9); Lymphocytes Percent Auto 23.9 % (20-40); Mean Corpuscular HGB Conc 32.3 g/dl (31.0-35.0); Mean Corpuscular Hemoglobin 25.5 pg (27.0-33.0); Mean Corpuscular Volume 78.9 fL (80.0-98.0); Monocytes Absolute Auto 0.7 X10*3/uL (0.1-1.2); Monocytes Percent Auto 7.5 % (2-11); Neutrophils Absolute Auto 5.7 x10*3/uL (2.0-8.3); Neutrophils Percent Auto 66.6 % (45-73); Platelet Count 259 X10*3/uL (160-400); Red Blood Count 5.84 X10*6/uL (4.20-5.50); Red Cell Distribution Width 15.9 % (11.0-16.0); White Blood Count 8.6 X10*3/uL (4.8-10.8)
--- NOTE | 2022-10-25 12:55 | MHC.EDTECH ---
pt labs collected and sent. EKG completed
[2022-10-25 13:03] LABS: Alanine Aminotransferase 16 U/L (0-31); Albumin Level 3.4 g/dL (3.5-5.0); Alkaline Phosphatase 72 U/L (39-117); Anion Gap 13 (12-20); Aspartate Amino Transferase 17 U/L (5-31); Bilirubin Total 0.3 mg/dL (0.0-1.0); Blood Urea Nitrogen 43 mg/dL (9-16); Calcium 9.8 mg/dL (8.4-10.2); Carbon Dioxide 20 mmol/L (22-29); Chloride 109 mmol/L (96-108); Creatinine Clr Calc Pharmacy 30.6; Estimated Glomerular Filt Rate 21; Glucose Random 119 mg/dL (60-115); Magnesium 1.9 mg/dL (1.6-2.6); Potassium 4.4 mmol/L (3.3-5.1); Sodium 138 mmol/L (135-145); Total Protein 6.8 g/dL (6.5-8.0)
[2022-10-25 13:14] LABS: Troponin-I High Sensitivity 139.9 ng/L (<3.5-17.0)
[2022-10-25 13:34] LABS: Influenza A PCR NEGATIVE (Negative); Influenza B PCR NEGATIVE (Negative); Resp Syncy Virus RNA Qual PCR NEGATIVE (Negative); SARS COV2 PCR INHOUSE NEGATIVE (Negative)
--- NOTE | 2022-10-25 14:05 | PC.NURSE ---
pt is reporting that she feels like her blood sugar is low, POC WNL.
[2022-10-25 14:08] LABS: Glucose, Whole Blood 112 mg/dL (60-115)
[2022-10-25 14:53] LABS: INTERNATIONAL NORM RATIO 0.9 (0.9-1.1); Prothrombin Time 10.2 SEC (10.0-13.1)
[2022-10-25 14:55] LABS: D Dimer High Sensitivity 216 NG/ML
[2022-10-25 14:56] LABS: Partial Thromboplastin Time 26.4 SEC (26.0-36.4)
[2022-10-25 15:08] LABS: Troponin-I High Sensitivity 137.9 ng/L (<3.5-17.0)
== END 2022-10-25 15:23 | disposition home or self-care (01) ==
PROVIDERS: Physician Assistant Medical; Emergency Provider Emergency Medicine; PCP Internal Medicine
DX: M54.50 Low back pain, unspecified (principal); M79.10 Myalgia, unspecified site; Z20.822 Contact with and (suspected) exposure to COVID-19; Z20.828 Contact with and (suspected) exposure to other viral communicable diseases; Z79.899 Other long term (current) drug therapy
CPT/HCPCS: 0241U; 36415; 71046; 80053; 82947; 83735; 84484; 85025; 85379; 85610; 85730; 93005; 99284; 99285

== ENCOUNTER 2022-11-01 10:57 | Outpatient (REF) | payer OTHER, SELFPAY ==
[2022-11-01 11:29] LABS: MANUAL DIFF FLAG NO
[2022-11-01 12:01] LABS: Basophils Absolute Auto 0.1 X10*3/uL (0.0-0.2); Basophils Percent Auto 0.7 % (0-2); Eosinophils Absolute Auto 0.1 X10*3/uL (0.0-0.4); Eosinophils Percent Auto 1.2 % (0-4); Hematocrit 48.9 % (37.0-47.0); Hemoglobin 15.7 g/dl (12.0-16.0); Imm Gran Abs Auto 0.03 X10*3/uL (0.00-0.03); Imm Gran Pct Auto 0.4 % (0.0-0.4); Immature Retic Fraction 10.9 % (3.0-15.9); Lymphocytes Absolute Auto 2.1 X10*3/uL (1.2-4.9); Lymphocytes Percent Auto 25.4 % (20-40); Mean Corpuscular HGB Conc 32.1 g/dl (31.0-35.0); Mean Corpuscular Volume 81.1 fL (80.0-98.0); Mean Platelet Volume 11.9 fL (9.4-12.3); Monocytes Absolute Auto 0.6 X10*3/uL (0.1-1.2); Monocytes Percent Auto 7.7 % (2-11); Neutrophils Absolute Auto 5.4 x10*3/uL (2.0-8.3); Neutrophils Percent Auto 64.6 % (45-73); Platelet Count 270 X10*3/uL (160-400); Red Blood Count 6.03 X10*6/uL (4.20-5.50); Red Cell Distribution Width 17.3 % (11.0-16.0); Retic HGB Equivalent 31.9 pg (30.0-35.0); Reticulocyte Percent 1.7 % (0.5-1.8); Reticulocytes Absolute 0.102 X10*6/uL (0.026-0.095); White Blood Count 8.4 X10*3/uL (4.8-10.8)
[2022-11-01 12:06] LABS: D Dimer High Sensitivity 234 NG/ML
[2022-11-01 12:36] LABS: B Type Natriuretic Peptide 250 pg/mL (<100)
[2022-11-01 12:53] LABS: Alanine Aminotransferase 19 U/L (0-31); Albumin Level 3.8 g/dL (3.5-5.0); Alkaline Phosphatase 86 U/L (39-117); Anion Gap 13 (12-20); Aspartate Amino Transferase 19 U/L (5-31); Bilirubin Total 0.3 mg/dL (0.0-1.0); Blood Urea Nitrogen 33 mg/dL (9-16); Calcium 10.1 mg/dL (8.4-10.2); Carbon Dioxide 24 mmol/L (22-29); Chloride 103 mmol/L (96-108); Cholesterol 184 mg/dL; Estimated Glomerular Filt Rate 20; Glucose Random 212 mg/dL (60-115); HDL Cholesterol 40 mg/dL; Iron 52 mcg/dL (30-160); LDL Cholesterol Calculated 114 mg/dl; Percent Iron Saturation 16 % (15-50); Potassium 4.5 mmol/L (3.3-5.1); Sodium 135 mmol/L (135-145); Total Iron Binding Capacity 321 mcg/dL (228-428); Total Protein 7.3 g/dL (6.5-8.0); Triglycerides 154 mg/dL; Unsaturated Iron Binding 269 ug/dL
[2022-11-01 12:59] LABS: Anion Gap 15 (12-20); Blood Urea Nitrogen 33 mg/dL (9-16); Calcium 10.1 mg/dL (8.4-10.2); Carbon Dioxide 23 mmol/L (22-29); Chloride 103 mmol/L (96-108); Estimated Glomerular Filt Rate 19; Glucose Random 210 mg/dL (60-115); Potassium 4.8 mmol/L (3.3-5.1); Sodium 136 mmol/L (135-145)
[2022-11-01 13:13] LABS: Ferritin 22 ng/mL (10-250); Free T4 (Free Thyroxine) 0.89 ng/dL (0.71-1.85); Thyroid Stimulating Hormone 1.69 uIU/mL (0.32-4.0); Vitamin D 25-OH Total 24.9 ng/mL (>30)
[2022-11-01 13:21] LABS: Folate 7.9 ng/mL (> or = 4.0); Vitamin B12 1012 pg/mL (200-900)
[2022-11-01 13:59] LABS: Creatinine Urine 62.49 mg/dL; Microalbumin Urine > 2000.0 mg/L
== END 2022-11-01 10:58 | disposition home or self-care (01) ==
LOC: HO.LAB 10:57
PROVIDERS: Internal Medicine Pulmonary Disease; Absent Provider Internal Medicine; PCP Internal Medicine; Visit Provider Internal Medicine Hypertension Specialist
DX: I25.10 Atherosclerotic heart disease of native coronary artery without angina pectoris (principal); E78.00 Pure hypercholesterolemia, unspecified; E11.65 Type 2 diabetes mellitus with hyperglycemia; N18.4 Chronic kidney disease, stage 4 (severe)
CPT/HCPCS: 36415; 80048; 80053; 80061; 82043; 82306; 82607; 82728; 82746; 83540; 83880; 84439; 84443; 85025; 85045; 85379

== ENCOUNTER → 2022-11-09 10:49 | Outpatient (BNVA) | payer OTHER, SELFPAY | PROVIDERS: PCP Internal Medicine; Referring Provider Internal Medicine; Visit Provider Surgery | DX: L73.2 Hidradenitis suppurativa (principal) | CPT/HCPCS: 99212 ==

== ENCOUNTER → 2022-11-17 15:51 | Outpatient (BNVA) | payer OTHER, SELFPAY | PROVIDERS: PCP Internal Medicine; Visit Provider Nurse Practitioner | DX: R10.12 Left upper quadrant pain (principal); K21.9 Gastro-esophageal reflux disease without esophagitis; K59.04 Chronic idiopathic constipation; K31.84 Gastroparesis; K64.9 Unspecified hemorrhoids | CPT/HCPCS: 99212 ==

== ENCOUNTER → 2022-12-01 07:55 | Outpatient (BNVA) | payer OTHER, SELFPAY | PROVIDERS: PCP Internal Medicine; Referring Provider Internal Medicine; Visit Provider Nurse Practitioner | DX: K59.04 Chronic idiopathic constipation (principal); K31.84 Gastroparesis; K21.9 Gastro-esophageal reflux disease without esophagitis | CPT/HCPCS: 99212 ==

== ENCOUNTER 2022-12-13 07:06 | Day surgery (SDC) | payer OTHER, SELFPAY ==
[2022-11-30 10:45] VITALS: BMI 31.9
[2022-11-30 10:53] VITALS: BMI 31.9
--- NOTE | 2022-12-12 10:35 | P.CONAN_ITS ---
Documented by User: Lillian Hlae NP 12/12/22 10:46 HPI - Anesthesia Eval Consult details Narrative: 52yo F for Bilateral Excision Hidradenitis of groins and perineum Cardiac cleared and ok to hold xarelto s/p same 2020 with GA-LMA 4 PMFSH Active Problems Active Problems: All Active Problems (Updated 11/30/22 @ 10:34 by Louann Cespedes RN) Atherosclerotic cardiovascular disease (Acute) Calcific tendinitis of right shoulder (Acute) Adhesive capsulitis of right shoulder (Acute) Back pain (Acute) Carpal tunnel syndrome on both sides (Acute) Chronic idiopathic constipation (Acute) Insomnia (Acute) Upper respiratory infection (Acute) Arm pain (Acute) Dizziness (Acute) Type 2 diabetes mellitus with unspecified complications (Acute) Right foot pain (Acute) Diverticulitis (Acute) Bleeding hemorrhoids (Acute) Generalized anxiety disorder (Acute) SOB (shortness of breath) (Acute) Dyspnea on exertion (Acute) Chronic kidney disease, stage 4 (severe) (Acute) Headache (Acute) Gastroparesis (Acute) Hidradenitis suppurativa (Acute) Pulmonary embolism (Acute) Type 2 diabetes mellitus with chronic kidney disease (Acute) Vitamin D deficiency (Acute) Peripheral vascular disease (Acute) Proliferative diabetic retinopathy associated with type 2 diabetes mellitus (Acute) Diabetic polyneuropathy associated with type 2 diabetes mellitus (Acute) Diabetic nephropathy associated with type 2 diabetes mellitus (Acute) alf (current) use of insulin (Acute) Hyperlipidemia, unspecified (Acute) Essential hypertension (Acute) Cerebrovascular accident, embolic (Acute) Apical mural thrombus (Acute) Coronary artery dissection (Acute) Hidradenitis suppurativa of right axilla (Acute) GERD (gastroesophageal reflux disease) (Acute) Coronary artery disease (Acute) Obesity (BMI 30-39.9) (Acute) Type 2 diabetes mellitus with hyperglycemia (Acute) Past Medical History Medical History Acute angle-closure glaucoma Anxiety and depression Apical mural thrombus Axillary hidradenitis suppurativa Carotid stenosis Cerebrovascular accident, embolic Coronary artery disease Coronary artery dissection CVA (cerebral vascular accident) Diabetic nephropathy associated with type 2 diabetes mellitus Diabetic polyneuropathy associated with type 2 diabetes mellitus Essential hypertension GERD (gastroesophageal reflux disease) H. pylori infection Hidradenitis suppurativa Hidradenitis suppurativa of right axilla HTN (hypertension) Hypercholesterolemia Hyperlipidemia, unspecified Hypertension alf (current) use of insulin Obesity (BMI 30-39.9) On anticoagulant therapy On beta jacqueline at home Peripheral vascular disease Precordial chest pain Proliferative diabetic retinopathy associated with type 2 diabetes mellitus Pulmonary embolism Skin tag Type 2 diabetes mellitus with chronic kidney disease Type 2 diabetes mellitus with hyperglycemia Vitamin D deficiency Family History Family History Mother Type 2 diabetes mellitus Hypertension Maternal Grandmother Myocardial infarction Family history of problems with anesthesia: No Surgical History Surgical History Amputation of right index finger History of angioplasty History of axillary surgery (08/21/20) History of axillary surgery History of cardiac catheterization (~03/30/16) History of endometrial ablation History of esophagogastroduodenoscopy (EGD) History of tubal ligation S/P [facility]-BSO History of Problems with Anesthesia: No Social History Social History Household Members: None Housing: Apartment Are you a primary vp care management to a significant other at home: No Do you presently have visiting nurse or other home services: No (Children are often around to help) Alcohol intake: never Patient Tobacco Use Status: Former Tobacco user Quit Date: 5 yrs ago Tobacco use type: Cigarette e-Cigarette/Vaping Use: Never Used Second Hand Smoke Exposure: No Use of substances other than those prescribed or required for medical reasons: Yes Substance Use Type: Marijuana Substance Use Type Other:: 1 joint daily Substance Use Frequency: Daily Have you been hit, kicked, punched, or otherwise hurt by someone within the past year? If so, by whom?: No Are you DNR?: No Advance Directives: No Advance Directives Information Provided: Yes (Info mailed w/ pre-op instructions) Advance Directives on File: No Recently lost weight without trying: No Eating poorly because of decreased appetite: No Nutrition Risks: No Nutritional Risk Patient : No service: No Current occupational status: unemployed Cognitive needs: No Hearing needs: No Vision needs: Yes Meds Allergies Allergy/AdvReac Type Severity Reaction Status Date / Time cephalexin [From KEFLEX] Allergy Intermediate HIVES Verified 12/13/22 07:42 Home Medications Medication Instructions Recorded Confirmed Last Taken Type dapagliflozin 10 mg tablet 10 mg PO DAILY 03/15/22 12/13/22 12/12/22 History ([facility]) amlodipine 5 mg tablet 5 mg PO DAILY 07/26/22 12/13/22 12/12/22 History Exam Exam Date and Time: December 12, 2022 1035 Height,Weight and Vital Signs: Height 5 ft 7 in Weight 92.533 kg Pertinent Lab Results Pertinent Lab Results: Laboratory Tests 11/01/22 11/01/22 11:27 11:27 WBC 8.4 Hgb 15.7 Hct 48.9 H Plt Count 270 Sodium 136 Potassium 4.8 Chloride 103 Carbon Dioxide 23 BUN 33 H Creatinine 2.65 H Narrative Narrative: EKG 10/2022 Vent. Rate : 069 BPM ? ? Atrial Rate : 069 BPM ?? P-R Int : 134 ms? QRS Dur : 086 ms ? ? QT Int : 420 ms ? ? ? P-R-T Axes : 026 -24 117 degrees ?? QTc Int : 450 ms ? Normal sinus rhythm Left ventricular hypertrophy with repolarization abnormality ( R in aVL , Gilbert product ) Possible Lateral infarct (cited on or before 17-SEP-2016) Inferior infarct (cited on or before 17-SEP-2016) Abnormal ECG When compared with ECG of 08-MAY-2022 04:34, No significant change was found Per 07/2022 Cardiac OV note Cardiac catheterization from 2015 reviewed.? She had distal circumflex 100% stenosis with evidence of thrombus.? Bare metal stent placed due to noncompliance.? There was moderate stenosis in the mid LAD.? Chronic dissection in the distal left anterior still seen.? Last echocardiogram from March with LVEF 54%; apical Her chest pain is non anginal.? May continue treatment for stable CAD with aspirin, statins and Zetia.? LDL 72 mg/dL aneurysm. Assessment and Plan Assessment Anesthesia Assessment: Chart Reviewed Final Anesthetic Review Family History of Problems with Anesthesia: No History of Problems with Anesthesia: No Documented by User: Jordana Nguyen MD 12/13/22 08:50 [facility] Past Medical History Medical History Acute angle-closure glaucoma Anxiety and depression Apical mural thrombus Axillary hidradenitis suppurativa Carotid stenosis Cerebrovascular accident, embolic Coronary artery disease Coronary artery dissection CVA (cerebral vascular accident) Diabetic nephropathy associated with type 2 diabetes mellitus Diabetic polyneuropathy associated with type 2 diabetes mellitus Essential hypertension GERD (gastroesophageal reflux disease) H. 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 Obesity (BMI 30-39.9) On anticoagulant therapy On beta jacqueline at home Peripheral vascular disease Precordial chest pain Proliferative diabetic retinopathy associated with type 2 diabetes mellitus Pulmonary embolism Skin tag Type 2 diabetes mellitus with chronic kidney disease Type 2 diabetes mellitus with hyperglycemia Vitamin D deficiency Functional capacity: independent ambulation Patient : No Family History Family History Mother Type 2 diabetes mellitus Hypertension Maternal Grandmother Myocardial infarction Surgical History Surgical History Amputation of right index finger History of angioplasty History of axillary surgery (08/21/20) History of axillary surgery History of cardiac catheterization (~03/30/16) History of endometrial ablation History of esophagogastroduodenoscopy (EGD) History of tubal ligation S/P [facility]BS[facility] Social History Social History Household Members: None Housing: Apartment Are you a primary vp care management to a significant other at home: No Do you presently have visiting nurse or other home services: No (Children are often around to help) Alcohol intake: never Patient Tobacco Use Status: Former Tobacco user Quit Date: 5 yrs ago Tobacco use type: Cigarette e-Cigarette/Vaping Use: Never Used Second Hand Smoke Exposure: No Use of substances other than those prescribed or required for medical reasons: Yes Substance Use Type: Marijuana Substance Use Type Other:: 1 joint daily Substance Use Frequency: Daily Have you been hit, kicked, punched, or otherwise hurt by someone within the past year? If so, by whom?: No Are you DNR?: No Advance Directives: No Advance Directives Information Provided: Yes (Info mailed w/ pre-op instructions) Advance Directives on File: No Recently lost weight without trying: No Eating poorly because of decreased appetite: No Nutrition Risks: No Nutritional Risk Patient : No service: No Current occupational status: unemployed Cognitive needs: No Hearing needs: No Vision needs: Yes Meds Allergies Allergy/AdvReac Type Severity Reaction Status Date / Time cephalexin [From KEFLEX] Allergy Intermediate HIVES Verified 12/13/22 07:42 Home Medications Medication Instructions Recorded Confirmed Last Taken Type dapagliflozin 10 mg tablet 10 mg PO DAILY 03/15/22 12/13/22 12/12/22 [facility] amlodipine 5 mg tablet 5 mg PO DAILY 07/26/22 12/13/22 12/12/22 History Exam Airway Mallampati Class: III TM Dist: >3cm Neck ROM: Full Denture: Upper and Lower Heart: RRR Lungs: CTA Assessment and Plan Final Anesthetic Review ASA Class: III Final Preanesthetic Review: No Changes in Pt Med Stat, Meds/Allgs Chart Reviewed, Consent Obtained/Reviewed and Anes Risks/Benef Reviewed Patient Risk: Intermediate Procedure Risk: Low Anesthetic Plan Anesthetic Plan: GA Disposition: Standard PACU
[2022-12-13 07:55] VITALS: BP 181/96; PULSE 67; RESP 16; TEMP 36.6; O2SAT 98
--- NOTE | 2022-12-13 08:04 | MHC.SHP ---
Pre-Procedural Eval Section A Date of Service: 12/13/22 Section B Chief Complaint: Hidradenitis suppurativa Details of Present Illness: has recurrent swelling and drainage induration on the perineum and both groins consistent with hidradenitis Relevant Family History (Specify if Yes): No Relevant Social History: None Present Medications: see Short Stay Collaborative assessment Medical History: Significant History ( coronary artery disease, diabetes, history of pulmonary embolism, on anticoagulation) Allergies: Allergies Allergy/AdvReac Type Severity Reaction Status Date / Time cephalexin [From KEFLEX] Allergy Intermediate HIVES Verified 12/13/22 07:42 Review of Systems Sugical H&P ROS: Negative: Constitution, Cardiovascular, Respiratory, Neurological, Psychiatric, Hem-Onc, Allergic/Immunologic, Gastrointestinal, Genitourinary, Musculoskeletal, Integumentary, Endocrine and Eyes/Ears/Nose/Throat Exam Surgical H&P Exam: Normal: HEENT, Normal: Heart, Normal: Lungs, Normal: Extremities, Normal: Abdomen, Normal: Skin and Normal: Neurological Exam Comment: indurated areas on the perineum and groin Plan Diagnosis/Plan: Unchanged I have reviewed the history and physical and performed a pertinent physical examination on my patient. No changes have occurred unless specified. Time Spent With Patient Time: Total time managing care of this patient today ____ minutes.
[2022-12-13 08:08] LABS: Glucose, Whole Blood 142 mg/dL (60-115)
[2022-12-13] MEDS: Lactated Ringers 1,000 ML 100 ML IVCONT (08:17)
--- NOTE | 2022-12-13 09:09 | P.OP_ITS ---
Operative Note Operative Note Date of Service: 12/13/22 Narrative: Preop diagnosis: Her night this suppurative a, mons pubis and left and rind groin areas Postop diagnosis: The same Procedure: Excision of hidradenitis, mons pubis and left and right groin areas Excised areas: 5x3 cm on mons, 5x3 cm on left groin, 7x5 cm on right groin Surgeon: Ron Small MD assistant center manager: BEATRICE Garner The patient is a 52-year-old female with of hidradenitis of the left and right groin areas near the medial thigh, as well as on the mons pubis. she understood the technique of excision under anesthesia. She was aware of the risks, benefits, and alternatives. She was brought to the operating room. She was placed in supine position with both eyes abducted in frogleg position to expose the groin as well as the pubis. Surgical time-out was done. The patient received clindamycin IV preoperatively for prophylaxis. The area induration was seen on the mons pubis to the left with note of sinuses and fibrotic changes. There was an area on the left medial thigh near the groin also with the same appearance of sinuses and fibrotic changes. A similar air was seen on the right medial thigh as well. I started with the indurated area in the mons pubis. I infiltrated my planned line of incision with lidocaine 1%. I made the incision elliptically using a blade 15 around the induration and carried this through the full-thickness of the skin and subcutaneous fat using electrocautery. I made sure that we included all the in the indurated areas with disease skin and subcutaneous tissue. I cauterized oozing areas for hemostasis. This excised area was 5 x 3 cm. I then proceeded to excise the 2nd area on the left medial thigh in the same fashion. This measured 5 x 3 cm as well. I also cauterized oozing areas. I made sure that I included disease skin and subcutaneous tissue with the excision The 3rd area was on the right medial thigh. This measured about 7 x 5 cm. Again, I excise this entire area of disease skin and subcutaneous tissue with electrocautery in the same fashion as the previous 2 areas. I achieved hemostasis on losing areas with electrocautery. Once hemostasis was achieved, I proceeded then all incisions with simple interrupted nylon 3-0 sutures. All incisions were infiltrated with Marcaine 0.5% for postop JAY. Dressings were applied. The procedure was completed. The patient tolerated the procedure well. There were no immediate complications. Initial and final counts of sponges and instruments were correct. Estimated blood loss was about 20 cc. The patient was extubated without difficulty and transferred to the recovery room with stable vital signs.
[2022-12-13 09:42] VITALS: BP 156/85; PULSE 76; RESP 16; TEMP 36.1; O2SAT 98
[2022-12-13 09:47] VITALS: BP 167/89; PULSE 68; RESP 16; O2SAT 98
[2022-12-13 09:52] VITALS: BP 162/86; PULSE 65; RESP 16; O2SAT 98
[2022-12-13] MEDS: Acetaminophen 1,000 MG/100 ML PIGGYBACK 400 MG IV (09:53)
[2022-12-13 09:57] VITALS: BP 152/84; PULSE 64; RESP 18; O2SAT 99
--- NOTE | 2022-12-13 10:03 | HO.POSTANES ---
Post Anesthesia Evaluation Post Anesthesia Evaluation Vital Signs: Vital Signs Temp Pulse Resp BP Pulse Ox O2 Del Method 12/13/22 09:57 64 18 152/84 H 99 Room Air 12/13/22 09:52 65 16 162/86 H 98 Room Air 12/13/22 09:47 68 16 167/89 H 98 Room Air 12/13/22 09:42 97 F 76 16 156/85 H 98 Room Air 12/13/22 07:55 97.8 F 67 16 181/96 H 98 Room Air Anesthesia: General LMA and General Mental Status: Awake Pain Control: Satisfactory Nausea/Vomiting: None Hydration: Adequate Anesthesia-Related Issues: No Anes. Related Issues
[2022-12-13 10:12] VITALS: BP 141/78; PULSE 60; RESP 16; TEMP 36.2; O2SAT 99
[2022-12-13] MEDS: ondansetron HCL 4 MG/2 ML VIAL IVPUSH (10:13)
== END 2022-12-13 11:20 | disposition home or self-care (01) ==
PROVIDERS: PCP Internal Medicine; Visit Provider Surgery
PROC: (CPT 11462; principal; 2022-12-13 09:10)
DX: L73.2 Hidradenitis suppurativa (principal)
CPT/HCPCS: 11462; 11470; 82947; 88305; J0131; J0690; J1100; J2250; J2405; J2795; J3010

== ENCOUNTER → 2022-12-26 10:46 | Outpatient (BNVA) | payer OTHER, SELFPAY | PROVIDERS: PCP Internal Medicine; Visit Provider Surgery | DX: Z48.817 Encounter for surgical aftercare following surgery on the skin and subcutaneous tissue (principal); L73.2 Hidradenitis suppurativa | CPT/HCPCS: 99212 ==

== ENCOUNTER → 2023-01-19 13:37 | Outpatient (BNVA) | payer OTHER, SELFPAY | PROVIDERS: PCP Internal Medicine; Visit Provider Surgery | DX: Z09 Encounter for follow-up examination after completed treatment for conditions other than malignant neoplasm (principal); R10.31 Right lower quadrant pain; K59.04 Chronic idiopathic constipation; K21.9 Gastro-esophageal reflux disease without esophagitis; K31.84 Gastroparesis; Z79.899 Other long term (current) drug therapy | CPT/HCPCS: 99212 ==

== ENCOUNTER 2023-03-08 10:27 | Outpatient (REF) | payer OTHER, SELFPAY ==
[2023-03-08 13:22] LABS: Anion Gap 14 (12-20); Blood Urea Nitrogen 38 mg/dL (9-16); Calcium 10.9 mg/dL (8.4-10.2); Carbon Dioxide 23 mmol/L (22-29); Chloride 108 mmol/L (96-108); Estimated Glomerular Filt Rate 20; Potassium 4.5 mmol/L (3.3-5.1); Sodium 140 mmol/L (135-145)
== END 2023-03-08 10:28 | disposition home or self-care (01) ==
LOC: HO.LAB 10:27
PROVIDERS: Absent Provider Internal Medicine Hypertension Specialist; PCP Internal Medicine; Visit Provider Surgery
DX: N64.4 Mastodynia (principal); N18.4 Chronic kidney disease, stage 4 (severe); L73.2 Hidradenitis suppurativa; Z79.899 Other long term (current) drug therapy
CPT/HCPCS: 36415; 80051; 82310; 82565; 84520; 99212

== ENCOUNTER → 2023-03-15 10:31 | Outpatient (BNVA) | payer OTHER, SELFPAY | PROVIDERS: PCP Internal Medicine; Visit Provider Dietitian, Registered ==

== ENCOUNTER 2023-03-21 07:44 | Day surgery (SDC) | payer OTHER, SELFPAY ==
[2023-03-17 09:43] VITALS: BMI 34.4
--- NOTE | 2023-03-20 09:55 | HO.ANESPROP2 ---
Documented by User: Lillian Hale NP 03/20/23 10:13 HPI - Anesthesia Eval Consult details Narrative: 52yo F for Right Excision Breast cyst/hidradenitis s/p same 12/2022 with GA-LMA 4 Cardiac cleared 12/2022 and ok to hold xarelto CKD St 4 - follows renal - office visit 03/20/23, note pending PMFSH Active Problems Active Problems: All Active Problems (Updated 01/26/23 @ 08:03 by ANNIKA Rose) Atherosclerotic cardiovascular disease (Acute) Calcific tendinitis of right shoulder (Acute) Adhesive capsulitis of right shoulder (Acute) Back pain (Acute) Carpal tunnel syndrome on both sides (Acute) Chronic idiopathic constipation (Acute) Insomnia (Acute) Upper respiratory infection (Acute) Arm pain (Acute) Dizziness (Acute) Type 2 diabetes mellitus with unspecified complications (Acute) Right foot pain (Acute) Diverticulitis (Acute) Bleeding hemorrhoids (Acute) Generalized anxiety disorder (Acute) SOB (shortness of breath) (Acute) Dyspnea on exertion (Acute) Chronic kidney disease, stage 4 (severe) (Acute) Headache (Acute) Gastroparesis (Acute) Lower back pain (Acute) Right lower quadrant abdominal pain (Acute) Hidradenitis suppurativa (Acute) Pulmonary embolism (Acute) Type 2 diabetes mellitus with chronic kidney disease (Acute) Vitamin D deficiency (Acute) Peripheral vascular disease (Acute) Proliferative diabetic retinopathy associated with type 2 diabetes mellitus (Acute) Diabetic polyneuropathy associated with type 2 diabetes mellitus (Acute) Diabetic nephropathy associated with type 2 diabetes mellitus (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) Hyperlipidemia, unspecified (Acute) Essential hypertension (Acute) Cerebrovascular accident, embolic (Acute) Apical mural thrombus (Acute) Coronary artery dissection (Acute) Hidradenitis suppurativa of right axilla (Acute) GERD (gastroesophageal reflux disease) (Acute) Coronary artery disease (Acute) Obesity (BMI 30-39.9) (Acute) Type 2 diabetes mellitus with hyperglycemia (Acute) Past Medical History Medical History Acute angle-closure glaucoma Anxiety and depression Apical mural thrombus Axillary hidradenitis suppurativa Carotid stenosis Cerebrovascular accident, embolic Coronary artery disease Coronary artery dissection CVA (cerebral vascular accident) Diabetic nephropathy associated with type 2 diabetes mellitus Diabetic polyneuropathy associated with type 2 diabetes mellitus Essential hypertension GERD (gastroesophageal reflux disease) H. 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 Obesity (BMI 30-39.9) On anticoagulant therapy On beta jacqueline at home Peripheral vascular disease Precordial chest pain Proliferative diabetic retinopathy associated with type 2 diabetes mellitus Pulmonary embolism Skin tag Type 2 diabetes mellitus with chronic kidney disease Type 2 diabetes mellitus with hyperglycemia Vitamin D deficiency Family History Family History Mother Type 2 diabetes mellitus Hypertension Maternal Grandmother Myocardial infarction Family history of problems with anesthesia: No Surgical History Surgical History (Updated 03/17/23 @ 09:32 by Agnieszka Landon RN) Amputation of right index finger History of angioplasty History of axillary surgery (08/21/20) History of axillary surgery History of cardiac catheterization (~03/30/16) History of endometrial ablation History of esophagogastroduodenoscopy (EGD) History of tubal ligation Hx of excision of mass S/P LILY-BSO History of Problems with Anesthesia: No Social History Social History Household Members: None Housing: Apartment Are you a primary wound care nurse to a significant other at home: No Do you presently have visiting nurse or other home services: No Alcohol intake: never Patient Tobacco Use Status: Former Tobacco user Quit Date: 2017 Tobacco use type: Cigarette e-Cigarette/Vaping Use: Never Used Second Hand Smoke Exposure: No Use of substances other than those prescribed or required for medical reasons: Yes Substance Use Type: Marijuana Substance Use Frequency: Daily Have you been hit, kicked, punched, or otherwise hurt by someone within the past year? If so, by whom?: No Are you DNR?: No Advance Directives: No Advance Directives Information Provided: Yes (brochure mailed) Advance Directives on File: No Recently lost weight without trying: No Eating poorly because of decreased appetite: No Nutrition Risks: No Nutritional Risk service: No Current occupational status: unemployed Cognitive needs: No Hearing needs: No Vision needs: Yes Meds Allergies Allergy/AdvReac Type Severity Reaction Status Date / Time cephalexin [From KEFLEX] Allergy Intermediate HIVES Verified 03/21/23 08:14 Home Medications Medication Instructions Recorded Confirmed Last Taken Type dapagliflozin 10 mg tablet 10 mg PO DAILY 03/15/22 03/21/23 12/12/22 History (Javierervinjessica) amlodipine 5 mg tablet 5 mg PO DAILY 07/26/22 03/21/23 12/12/22 History insulin glargine U-300 conc 300 64 unit subcut DAILY 03/21/23 03/21/23 03/20/23 History unit/mL (3 mL) subcutaneous pen (Toujeo Max U-300 SoloStar) Exam Exam Date and Time: March 20, 2023 0955 Height,Weight and Vital Signs: Height 5 ft 5 in Weight 93.894 kg Pertinent Lab Results Pertinent Lab Results: Laboratory Tests 11/01/22 03/08/23 11:27 11:35 WBC 8.4 Hgb 15.7 Hct 48.9 H Plt Count 270 Sodium 140 Potassium 4.5 Chloride 108 Carbon Dioxide 23 BUN 38 H Creatinine 2.49 H Narrative Narrative: EKG 10/2022 Vent. Rate : 069 BPM ? ? Atrial Rate : 069 BPM ?? P-R Int : 134 ms? QRS Dur : 086 ms ? ? QT Int : 420 ms ? ? ? P-R-T Axes : 026 -24 117 degrees ?? QTc Int : 450 ms ? Normal sinus rhythm Left ventricular hypertrophy with repolarization abnormality ( R in aVL , [place] product ) Possible Lateral infarct (cited on or before 17-SEP-2016) Inferior infarct (cited on or before 17-SEP-2016) Abnormal ECG When compared with ECG of 08-MAY-2022 04:34, No significant change was found Per 07/2022 Cardiac OV note Cardiac catheterization from 2016 reviewed.? She had distal circumflex 100% stenosis with evidence of thrombus.? Bare metal stent placed due to noncompliance.? There was moderate stenosis in the mid LAD.? Chronic dissection in the distal left anterior still seen.? Last echocardiogram from March with LVEF 54%; apical Her chest pain is non anginal.? May continue treatment for stable CAD with aspirin, statins and Zetia.? LDL 72 mg/dL aneurysm. Assessment and Plan Assessment Anesthesia Assessment: Chart Reviewed Final Anesthetic Review Family History of Problems with Anesthesia: No History of Problems with Anesthesia: No Documented by User: Aminah Son MD 03/21/23 10:07 [facility] Past Medical History Medical History Acute angle-closure glaucoma Anxiety and depression Apical mural thrombus Axillary hidradenitis suppurativa Carotid stenosis Cerebrovascular accident, embolic Coronary artery disease Coronary artery dissection CVA (cerebral vascular accident) Diabetic nephropathy associated with type 2 diabetes mellitus Diabetic polyneuropathy associated with type 2 diabetes mellitus Essential hypertension GERD (gastroesophageal reflux disease) H. pylori infection Hidradenitis suppurativa Hidradenitis suppurativa of right axilla HTN (hypertension) Hypercholesterolemia Hyperlipidemia, unspecified Hypertension half-way (current) use of insulin Obesity (BMI 30-39.9) On anticoagulant therapy On beta jacqueline at home Peripheral vascular disease Precordial chest pain Proliferative diabetic retinopathy associated with type 2 diabetes mellitus Pulmonary embolism Skin tag Type 2 diabetes mellitus with chronic kidney disease Type 2 diabetes mellitus with hyperglycemia Vitamin D deficiency Family History Family History Mother Type 2 diabetes mellitus Hypertension Maternal Grandmother Myocardial infarction Surgical History Surgical History (Updated 03/17/23 @ 09:32 by Agnieszka Landon RN) Amputation of right index finger History of angioplasty History of axillary surgery (08/21/20) History of axillary surgery History of cardiac catheterization (~03/30/16) History of endometrial ablation History of esophagogastroduodenoscopy (EGD) History of tubal ligation Hx of excision of mass S/P LILY-BSO Social History Social History Household Members: None Housing: Apartment Are you a primary wound care nurse to a significant other at home: No Do you presently have visiting nurse or other home services: No Alcohol intake: never Patient Tobacco Use Status: Former Tobacco user Quit Date: 2017 Tobacco use type: Cigarette e-Cigarette/Vaping Use: Never Used Second Hand Smoke Exposure: No Use of substances other than those prescribed or required for medical reasons: Yes Substance Use Type: Marijuana Substance Use Frequency: Daily Have you been hit, kicked, punched, or otherwise hurt by someone within the past year? If so, by whom?: No Are you DNR?: No Advance Directives: No Advance Directives Information Provided: Yes (brochure mailed) Advance Directives on File: No Recently lost weight without trying: No Eating poorly because of decreased appetite: No Nutrition Risks: No Nutritional Risk service: No Current occupational status: unemployed Cognitive needs: No Hearing needs: No Vision needs: Yes Meds Allergies Allergy/AdvReac Type Severity Reaction Status Date / Time cephalexin [From KEFLEX] Allergy Intermediate HIVES Verified 03/21/23 08:14 Home Medications Medication Instructions Recorded Confirmed Last Taken Type dapagliflozin 10 mg tablet 10 mg PO DAILY 03/15/22 03/21/23 12/12/22 History (Farxiga) amlodipine 5 mg tablet 5 mg PO DAILY 07/26/22 03/21/23 12/12/22 History insulin glargine U-300 conc 300 64 unit subcut DAILY 03/21/23 03/21/23 03/20/23 History unit/mL (3 mL) subcutaneous pen (Toujeo Max U-300 SoloStar) Exam Airway Mallampati Class: I TM Dist: >3cm Neck ROM: Full Loose/Missing/Broken Teeth: No Heart: rr Lungs: cta Assessment and Plan Final Anesthetic Review NPO: Yes ASA Class: II Final Preanesthetic Review: No Changes in Pt Med Stat, Meds/Allgs Chart Reviewed, Consent Obtained/Reviewed and Anes Risks/Benef Reviewed Patient Risk: Low Procedure Risk: Low Anesthetic Plan Anesthetic Plan: GA Disposition: Standard PACU
[2023-03-21] VITALS (13 sets, daily range): BP systolic 148–177; BP diastolic 81–96; PULSE 56–64; RESP 16–20; TEMP 36.2–36.7; O2SAT 96–98
[2023-03-21 09:11] LABS: Glucose, Whole Blood 203 mg/dL (60-115)
--- NOTE | 2023-03-21 09:26 | ECG_ITS ---
Test Reason : Pre-Op, ? inverted T-waves Blood Pressure : / mmHG Vent. Rate : 063 BPM Atrial Rate : 063 BPM P-R Int : 134 ms QRS Dur : 088 ms QT Int : 454 ms P-R-T Axes : 018 -20 123 degrees QTc Int : 464 ms Normal sinus rhythm Left ventricular hypertrophy with repolarization abnormality ( R in aVL , [place] product ) Possible Lateral infarct (cited on or before 17-SEP-2016) Inferior infarct (cited on or before 17-SEP-2016) Abnormal ECG When compared with ECG of 25-OCT-2022 12:35, No significant change was found Referred By: Jose Tian Electronically Signed By:KAMARI WEST MD
--- NOTE | 2023-03-21 10:30 | PC.NURSE ---
Patient in preop room getting ready for surgery. When reconciling medications and asked about the last dose of Xarelto, she stated I havent taken it in about 6 months, I just stopped it on my own, I didn't want to take it anymore because I didn't think it was needed . Last consult with Dr. May from July 2022 in computer discussed continuing Xarelto for PE, with addendum discussing instructions to stop Xarelto 2 days prior to procedure today. See cardiac visit note from 07/26/22. Dr. Small and Dr. Son made aware of this and discussed with patient at bedside. No new orders at this time, and per them both, okay to proceed with surgery. All VS WNL. Question of inverted T wave on monitor in preop, EKG obtained per Dr. Son which showed no changes when compared to last EKG in October 2022. Dr. Son made aware.
--- NOTE | 2023-03-21 11:01 | MHC.SHP ---
Pre-Procedural Eval Section A Date of Service: 03/21/23 The patient is an INPATIENT: No Changes since office visit: No Cold of Flu in the past 2 weeks, No New Medical Problems, No Changes in Medication and No Patient answered all questions The History & Physical has been completed within 30 days and I have reviewed it.: Yes Section B Chief Complaint: Hidradenitis suppurativa Allergies: Allergies Allergy/AdvReac Type Severity Reaction Status Date / Time cephalexin [From KEFLEX] Allergy Intermediate HIVES Verified 03/21/23 08:14 Plan I have reviewed the history and physical and performed a pertinent physical examination on my patient. No changes have occurred unless specified. Time Spent With Patient Time: Total time managing care of this patient today ____ minutes.
--- NOTE | 2023-03-21 11:06 | PC.NURSE ---
Preop cefazolin IV order changed to Clindamycin 900mg IV per Dr. Small due to allergies. Josie from pharmacy made aware and order changed.
--- NOTE | 2023-03-21 11:41 | W.PM.OPN ---
Operative Note Operative Note Date of Service: 03/21/23 Narrative: Preop diagnosis: Hidradenitis suppurativa, right breast Postop diagnosis: The same Procedure: Excision of hidradenitis suppurativa, right breast under anesthesia Surgeon: Ron Small MD The patient is a 52-year-old female with note of an area of recurrent drainage, and swelling on the medial aspect of the right breast inferiorly. Examination shows small sinuses and in duration consistent with an hidradenitis suppurativa. she understood the technique of excision and was aware of the risks, benefits, and alternatives. She was brought to the operating room. She was placed supine under general anesthesia via laryngeal mask airway. The area of the hidradenitis on the right breast was prepped and draped in the usual sterile fashion. A surgical time-out was done. The patient received clindamycin IV preoperatively for prophylaxis I marked my planned line of incision and infiltrated this with lidocaine 1%. I made an elliptical incision on the skin surrounding this area of induration and sinuses using a blade 15. This carried down through the full-thickness of the skin and subcutaneous fat with electrocautery to excise the entire indurated area and we made sure that all diseased tissue was excised. I copiously irrigated. The excision site was about 6.5 cm long and about 3 cm wide I reapposed the anus layer with Polysorb 3-0 interrupted sutures. Skin closure was achieved with nylon 3-0 simple interrupted sutures. I infiltrated the area with Marcaine 0.5% for postop JAY. Dressings were applied. The procedure was completed. She tolerated procedure well. There were no immediate complications. Initial and final counts of sponges and instruments were correct. Estimated bloodloss was about 10 cc. She was extubated without difficulty and transferred to the recovery room with stable vital signs
[2023-03-21] MEDS: Acetaminophen 1,000 MG/100 ML PIGGYBACK 400 MG IV (12:07)
[2023-03-21] MEDS: oxyCODONE HCl Immed Release 5 MG TABLET PO (12:07)
[2023-03-21] MEDS: fentaNYL citrate/PF 100 MCG/2 ML VIAL 25 MCG IVPUSH ×2 (12:38→12:51)
== END 2023-03-21 13:55 | disposition home or self-care (01) ==
PROVIDERS: PCP Internal Medicine; Visit Provider Surgery
PROC: (CPT 19120; principal; 2023-03-21 10:50)
DX: L73.2 Hidradenitis suppurativa (principal); E11.21 Type 2 diabetes mellitus with diabetic nephropathy; E11.42 Type 2 diabetes mellitus with diabetic polyneuropathy; E11.3599 Type 2 diabetes mellitus with proliferative diabetic retinopathy without macular edema, unspecified eye; E11.22 Type 2 diabetes mellitus with diabetic chronic kidney disease; I12.9 Hypertensive chronic kidney disease with stage 1 through stage 4 chronic kidney disease, or unspecified chronic kidney disease; N18.9 Chronic kidney disease, unspecified; E11.65 Type 2 diabetes mellitus with hyperglycemia; I25.10 Atherosclerotic heart disease of native coronary artery without angina pectoris; Z95.5 Presence of coronary angioplasty implant and graft; I26.99 Other pulmonary embolism without acute cor pulmonale; I73.9 Peripheral vascular disease, unspecified; E66.9 Obesity, unspecified; F41.8 Other specified anxiety disorders; E78.00 Pure hypercholesterolemia, unspecified; E55.9 Vitamin D deficiency, unspecified; Z68.34 Body mass index [BMI] 34.0-34.9, adult; Z79.01 Long term (current) use of anticoagulants; Z79.4 Long term (current) use of insulin; Z79.82 Long term (current) use of aspirin; Z79.899 Other long term (current) drug therapy; Z88.1 Allergy status to other antibiotic agents; Z86.73 Personal history of transient ischemic attack (TIA), and cerebral infarction without residual deficits; Z87.891 Personal history of nicotine dependence
CPT/HCPCS: 11450; 82947; 88304; 88305; 93005; J0131; J0690; J2250; J2405; J3010

== ENCOUNTER → 2023-03-30 09:30 | Outpatient (BNVA) | payer OTHER, SELFPAY | PROVIDERS: PCP Internal Medicine; Visit Provider Surgery | DX: Z09 Encounter for follow-up examination after completed treatment for conditions other than malignant neoplasm (principal); Z87.2 Personal history of diseases of the skin and subcutaneous tissue | CPT/HCPCS: 99212 ==

== ENCOUNTER 2023-04-17 09:31 | Outpatient (AMB) | payer OTHER, SELFPAY ==
--- NOTE | 2023-04-17 10:13 | MHC.OFFVIS ---
Intake Vital Signs 04/17/23 10:16 Height 5 ft 6 in Weight 210 lb 12.191 oz BMI 34.0 BP 164/90 H Blood Pressure Location Lt brachial Position Sitting Pulse 65 Intake Visit Reasons: 6 mth f/up Intake Note: 6 month follow up Soc Analyst Required: No Accompanied by: Self / Same As Patient Allergies cephalexin [From KEFLEX] Allergy (Intermediate, Verified 04/17/23 10:17) HIVES Medication List - Last Reconciled 04/17/23 by Zander May MD alcohol swabs 1 pad topical TID 90 days amlodipine 5 mg PO DAILY aspirin 81 mg PO DAILY blood pressure monitor (Blood Pressure Kit) As directed blood sugar diagnostic (FreeStyle Lite Strips) 4 times a day cholecalciferol (vitamin D3) 50 mcg PO DAILY dapagliflozin propanediol (Farxiga) 10 mg PO DAILY dicyclomine 20 mg PO TID 30 days ezetimibe 10 mg PO DAILY flash glucose scanning reader (FreeStyle Patrick 14 Day [place]) As directed flash glucose sensor (FreeStyle Patrick 14 Day Sensor kit) every 14 days FreeStyle Lite Meter (blood-glucose meter) 4 times a day NS FreeStyle Precision [place] Strips (blood sugar diagnostic) once a day for calibration NS glucose (Dex4 Glucose) 12 grams (3 x 4 gram) PO Q15M PRN insulin glargine U-300 conc (Toujeo Max U-300 SoloStar) 64 units (0.2133 mL) subcut DAILY 30 days insulin lispro 10-24 units20 units before meals (16 units light meals), + 2u for bg over 200, +4 unit bg >250, 10 u with snack. subcutaneously use as directed; 30 days lancets As directed 3x/day losartan 50 mg PO DAILY metoclopramide HCl (Reglan) 5 mg PO QIDACHS metoprolol succinate ER 200 mg PO DAILY omeprazole 20 mg PO DAILY oxycodone-acetaminophen 5-325 mg (Percocet) 1 tab PO Q4-6H PRN pen needle, diabetic 5 times a day Proctosol HC 2.5% (hydrocortisone) 1 appl ME BID NS rosuvastatin 20 mg PO BEDTIME sennosides (senna) 17.2 mg (2 x 8.6 mg) PO BEDTIME 30 days tramadol 50 mg PO Q6H PRN tramadol 50 mg PO Q6H PRN 30 days zolpidem 10 mg PO BEDTIME PRN 30 days HPI HPI Comments History of Present Illness Details Phoebe returns for follow-up regarding various cardiac issues. 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 She was on anticoagulation with warfarin for a couple of years after that, but then stopped it as she did not want take anything. In March 2016, she was hospitalized once again for non ST elevation myocardial infarction and underwent cardiac catheterization and bare metal stenting to circumflex. Few months back, she was diagnosed pulmonary embolism. Was on anticoagulation but not anymore. She has a long history of noncompliance. She had stated that she was much more proactive now but again seems to be getting noncompliant again. Has not taken meds today and she states that is the reason for the high blood pressure. However, several blood pressures in the last few months are still high. Hence not sure she actually taking any medications or not. In terms of symptoms, seems to be generally okay. No clear-cut angina. [facility] Medical History Acute angle-closure glaucoma Anxiety and depression Apical mural thrombus Axillary hidradenitis suppurativa Carotid stenosis Cerebrovascular accident, embolic Coronary artery disease Coronary artery dissection CVA (cerebral vascular accident) Diabetic nephropathy associated with type 2 diabetes mellitus Diabetic polyneuropathy associated with type 2 diabetes mellitus Essential hypertension GERD (gastroesophageal reflux disease) H. 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 Obesity (BMI 30-39.9) On anticoagulant therapy On beta jacqueline at home Peripheral vascular disease Precordial chest pain Proliferative diabetic retinopathy associated with type 2 diabetes mellitus Pulmonary embolism Skin tag Type 2 diabetes mellitus with chronic kidney disease Type 2 diabetes mellitus with hyperglycemia Vitamin D deficiency Surgical History Amputation of right index finger History of angioplasty History of axillary surgery (08/21/20) History of axillary surgery History of cardiac catheterization (~03/30/16) History of endometrial ablation History of esophagogastroduodenoscopy (EGD) History of surgery (03/21/23) History of tubal ligation Hx of excision of mass S/P LILY-BSO Family History Mother Type 2 diabetes mellitus Hypertension Maternal Grandmother Myocardial infarction Social History Household Members: None Housing: Apartment Are you a primary intensive care medicine specialist to a significant other at home: No Do you presently have visiting nurse or other home services: No Alcohol intake: never Patient Tobacco Use Status: Former Tobacco user Quit Date: 2017 Tobacco use type: Cigarette e-Cigarette/Vaping Use: Never Used Second Hand Smoke Exposure: No Substance Use Type: Marijuana service: No Current occupational status: unemployed Cognitive needs: No Hearing needs: No Vision needs: Yes Review of Systems Const Denies weakness ENT Denies dizziness Card Denies chest pain, Denies chest pain with activity, Denies syncope, Denies rapid heart rate, Denies pedal edema, Denies edema, Denies leg edema, Denies lightheadedness, Denies palpitations, Denies dyspnea, Denies dyspnea on exertion and Denies orthopnea Resp Denies cough, Denies dyspnea and Denies dyspnea on exertion GI Denies hematochezia and Denies change in stool character Musc Denies abnormal gait, Denies muscle cramps, Denies muscle weakness, Denies numbness, Denies radiating pain into limb and Denies tingling Neuro Denies abnormal gait, Denies dizziness, Denies syncope, Denies numbness, Denies tingling and Denies weakness Endo Denies palpitations Physical Exam Vital Signs: Last Vital Signs Pulse 65 04/17/23 10:16 BP 164/90 H 04/17/23 10:16 BMI result Body Mass Index 34.0 Const General: comfortable and no acute distress Orientation/consciousness: patient oriented x3 HEENT Other: Unremarkable Head: Yes normal to inspection Neck Neck: Yes normal visual inspection Chest Chest palpation & inspection: normal inspection of the chest Resp Auscultation: clear to auscultation bilaterally Cardio Palpation: normal PMI Heart sounds: S1 normal heart sound present, S2 normal heart sound present, no gallops, no murmurs and no rubs GI Palpation (GI): Soft to palpation Back/Spine/Pelvis Other: unremarkable Skin General skin exam: no rashes or lesions noted Neuro General: patient oriented x3 Extrem General: Yes normal to inspection Psych Mental Status: mental status grossly normal Assessment & Plan Assessment & Plan (1) Atherosclerotic cardiovascular disease: Code(s): I25.10 - Atherosclerotic heart disease of [place] coronary artery without angina pectoris Plan: Cardiac catheterization from 2016 reviewed. She had distal circumflex 100% stenosis with evidence of thrombus. Bare metal stent placed due to noncompliance. There was moderate stenosis in the mid LAD. Chronic dissection in the distal left anterior still seen. Last echocardiogram from March with LVEF 54%; aneurysmal apex. I had a long conversation with her about compliance with medications. Explained to her the fact that if she continues to be this way, then there is a high risk of getting another heart attack or worse. She seems to understand but somehow she does not follow through with all these. Continue aspirin, statins and Zetia. (2) Coronary artery dissection: Code(s): I25.42 - Coronary artery dissection Plan: Stable. (3) Apical mural thrombus: Code(s): I51.3 - Intracardiac thrombosis, not elsewhere classified Plan: She was on warfarin in the past several years ago. In the last echocardiogram, no thrombus noted. (4) Cerebrovascular accident, embolic: Code(s): I63.9 - Cerebral infarction, unspecified Qualifiers: Precerebral and cerebral artery: unspecified cerebral artery Qualified Code(s): I63.40 - Cerebral infarction due to embolism of unspecified cerebral artery Plan: No residual deficit. (5) Essential hypertension: Code(s): I10 - Essential (primary) hypertension Plan: Blood pressure seems high. She states she can take any medications today. Other blood pressure is also high and hence question of compliance. She states her other physicians have made some changes and I mainly reinforce the fact that she needs to be more regular with her meds to avoid complications. Hopefully she understands. (6) Type 2 diabetes mellitus with unspecified complications: Code(s): E11.8 - Type 2 diabetes mellitus with unspecified complications Plan: Not well controlled. Last random blood sugar was 203. Prior to that, hemoglobin A1c is 8.5%. Prior to that, as much as 10.8%. Importance of diabetes control has been discussed numerous times. On insulin, Lars. (7) Chronic kidney disease: Code(s): N18.9 - Chronic kidney disease, unspecified Plan: Most recently, 2.49. That seems to be around her baseline. Nephrology documentation noted. Medications: Discontinued insulin glargine U-300 conc 60 units (0.2 mL) subcut DAILY 50 days 10 mL 6RF I10 - Essential (primary) hypertension Coding Level of Care Code Est Pt Level 4 (42776) Diagnoses Atherosclerotic cardiovascular disease I25.10 Coronary artery dissection I25.42 Apical mural thrombus I51.3 Cerebrovascular accident, embolic I63.40 Precerebral and cerebral artery: unspecified cerebral artery Essential hypertension I10 Type 2 diabetes mellitus with unspecified complications E11.8 Chronic kidney disease N18.9
[2023-04-17 10:16] VITALS: BP 164/90; PULSE 65; BMI 34.0
== END 2023-04-17 10:33 | disposition home or self-care (01) ==
LOC: HO.HCS 10:08
PROVIDERS: PCP Internal Medicine; Visit Provider Internal Medicine
DX: I25.10 Atherosclerotic heart disease of native coronary artery without angina pectoris (principal); I25.42 Coronary artery dissection; I51.3 Intracardiac thrombosis, not elsewhere classified; I63.40 Cerebral infarction due to embolism of unspecified cerebral artery; I12.9 Hypertensive chronic kidney disease with stage 1 through stage 4 chronic kidney disease, or unspecified chronic kidney disease; E11.8 Type 2 diabetes mellitus with unspecified complications; N18.9 Chronic kidney disease, unspecified
CPT/HCPCS: 99214

== ENCOUNTER → 2023-04-17 10:08 | Outpatient (BNVA) | payer OTHER, SELFPAY | PROVIDERS: PCP Internal Medicine; Visit Provider Internal Medicine | DX: I51.3 Intracardiac thrombosis, not elsewhere classified (principal); I25.42 Coronary artery dissection; I25.10 Atherosclerotic heart disease of native coronary artery without angina pectoris; I63.40 Cerebral infarction due to embolism of unspecified cerebral artery; I11.9 Hypertensive heart disease without heart failure; E11.9 Type 2 diabetes mellitus without complications; Z87.891 Personal history of nicotine dependence; Z98.890 Other specified postprocedural states | CPT/HCPCS: 99212 ==

== ENCOUNTER 2023-06-30 09:46 | Outpatient (AMB) | payer OTHER, SELFPAY ==
[2023-06-30 09:59] VITALS: BP 152/88; PULSE 83; O2SAT 97; BMI 32.8
--- NOTE | 2023-06-30 09:59 | MHC.PC.OV ---
Vital Signs 06/30/23 09:59 Height 5 ft 6 in Weight 203 lb BMI 32.8 BP 152/88 H Blood Pressure Location Lt brachial Position Sitting Pulse 83 Pulse Source Pulse Oximeter Pulse Oximetry (%) 97 Oxygen Delivery Method Room Air Intake Visit Reasons: DM, CTS, LBP Allergies cephalexin [From KEFLEX] Allergy (Intermediate, Verified 06/30/23 09:59) HIVES Tobacco use date assessed: 01/12/23 Dental Screening Dental Screen Date: 06/30/23 Did you have a dental visit in the last 12 months?: Yes Did you have a dental problem in the last 6 months where you did not have access to dental care?: No Was dental information given to patient?: Patient has dentist HPI DM, CTS, LBP HPI Details 53-year-old obese female with diabetes mellitus coronary artery disease GERD hypertension hypercholesterolemia chronic kidney disease coming in for follow-up. Last seen in January 2023. Review of the notes in April patient was seen by Cardiology continues to be anti coagulated with a history of apical mural thrombus and the last echocardiogram did not reveal any thrombus.. Patient also follows up with Nephrology March 2020 diagnosis of chronic kidney disease stage 4 secondary to diabetes mellitus patient is being referred for preemptive transplantation continuing with blood pressure medication on for C got 10 mg once a day for renal protection continue with amlodipine 5 mg once a day patient states did not tolerate losartan. Patient did see the surgeon for the right breast hydradenitis healing well. [facility] Medical History Acute angle-closure glaucoma Anxiety and depression Apical mural thrombus Axillary hidradenitis suppurativa Carotid stenosis Cerebrovascular accident, embolic Coronary artery disease Coronary artery dissection CVA (cerebral vascular accident) Diabetic nephropathy associated with type 2 diabetes mellitus Diabetic polyneuropathy associated with type 2 diabetes mellitus Essential hypertension GERD (gastroesophageal reflux disease) H. pylori infection Hidradenitis suppurativa Hidradenitis suppurativa of right axilla HTN (hypertension) Hypercholesterolemia Hyperlipidemia, unspecified Hypertension [facility] (current) use of insulin Obesity (BMI 30-39.9) On anticoagulant therapy On beta jacqueline at home Peripheral vascular disease Precordial chest pain Proliferative diabetic retinopathy associated with type 2 diabetes mellitus Pulmonary embolism Skin tag Type 2 diabetes mellitus with chronic kidney disease Type 2 diabetes mellitus with hyperglycemia Vitamin D deficiency Surgical History Amputation of right index finger History of angioplasty History of axillary surgery (08/21/20) History of axillary surgery History of cardiac catheterization (~03/30/16) History of endometrial ablation History of esophagogastroduodenoscopy (EGD) History of surgery (03/21/23) History of tubal ligation Hx of excision of mass S/P LILY-BSO Family History Mother Type 2 diabetes mellitus Hypertension Maternal Grandmother Myocardial infarction Social History Household Members: None Housing: Apartment Are you a primary vp care management to a significant other at home: No Do you presently have visiting nurse or other home services: No Alcohol intake: never Patient Tobacco Use Status: Former Tobacco user Quit Date: 2017 Tobacco use type: Cigarette e-Cigarette/Vaping Use: Never Used Second Hand Smoke Exposure: No Substance Use Type: Marijuana service: No Current occupational status: unemployed Cognitive needs: No Hearing needs: No Vision needs: Yes Questionnaire PHQ-9 Over the last 2 weeks, how often have you been bothered by any of the following problems? 1. Little interest or pleasure in doing things: several days 2. Feeling down, depressed, or hopeless: several days 3. Trouble falling or staying asleep, or sleeping too much: several days 4. Feeling tired or having little energy: several days 5. Poor appetite or overeating: several days 6. Feeling bad about yourself - or that you are a failure or have let yourself or your family down: not at all 7. Trouble concentrating on things, such as reading the newspaper or watching television: not at all 8. Moving or speaking so slowly that other people could have noticed. Or the opposite - being so fidgety or restless that you have been moving around a lot more than usual: not at all 9. Thoughts that you would be better off or of hurting yourself in some way: not at all Total score: 5 Depression Screening Interpretation: Positive Source: Developed by Drs. Tushar Villar, Dinorah Ariza, Kobi Carver and colleagues, with an educational neto from [employer]. Thrive Questionnaire Date Thrive assessed: 01/12/23 AUDIT C Alcohol Use Questionnaire (AUDIT-C) 1. How often do you have a drink containing alcohol?: Never 3. How often do you have six or more drinks on one occasion?: Never Total Score: 0 BRAXTON-7 AMB Questionnaire BRAXTON-7 Date BRAXTON - 7 assessed: 01/12/23 Source: Developed by Drs. Tushar Villar, Dinorah Ariza, Kobi Carver and colleagues, with an educational neto from [employer]. Physical exam (Primary Care) Vital Signs: Last Vital Signs Pulse 83 06/30/23 09:59 BP 152/88 H 06/30/23 09:59 Pulse Ox 97 06/30/23 09:59 Oxygen Delivery Method Room Air 06/30/23 09:59 BMI result Body Mass Index 32.8 Tobacco/Smoking Status: Tobacco use Status Tobacco use date assessed 01/12/23 06/30/23 10:00 Patient Tobacco Use Status Former Tobacco user 06/30/23 10:00 Tobacco use type Cigarette 06/30/23 10:00 e-Cigarette/Vaping Use Never Used 06/30/23 10:00 PHQ-9: PHQ-9 Score PHQ-9: Total score 5 06/30/23 10:20 Depression Screening Interpretation: Positive Thrive Assessment: Date of Thrive Assessment Date Thrive assessed 01/12/23 06/30/23 10:00 Const General: alert; No acute distress Eyes Conjunctivae: conjunctivae normal Resp Auscultation: clear to auscultation bilaterally Cardio Rate: regular rate Rhythm: regular rhythm GI Inspection: Yes normal to inspection Extrem General: Yes normal to inspection and No edema Results AMB Hemoglobin A1c AMB Hemoglobin A1c 7.8 % Last Edit by Yari Spence CMA on 06/30/23 10:21 Results Reviewed Results Reviewed: Laboratory Last Values Hgb A1c (Clinic) 7.8 % (4.0-6.0) H 06/30/23 10:01 Assessment and Plan Assessment & Plan (1) Type 2 diabetes mellitus with hyperglycemia: Comment: IDDM, Dr. 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 Hemoglobin A1c goal of less than 6.5 (2) Obesity (BMI 30-39.9): Code(s): E66.9 - Obesity, unspecified Plan: Diet and exercise (3) Coronary artery disease: Comment: stent placement March 2016, echo March 2019 normal LV function, impaired relaxation Chest pains on and off-not like when she had the MA. Sees Dr May. Intermediate risk for surgery. Code(s): I25.10 - Atherosclerotic heart disease of [place] coronary artery without angina pectoris Qualifiers: Coronary Disease-Associated Artery/Lesion type: [place] artery [place] vs. transplanted heart: [place] heart Associated angina: without angina Qualified Code(s): I25.10 - Atherosclerotic heart disease of [place] coronary artery without angina pectoris Plan: Control the cholesterol, weight, blood pressure, diabetes (4) GERD (gastroesophageal reflux disease): Code(s): K21.9 - Gastro-esophageal reflux disease without esophagitis Qualifiers: Esophagitis presence: without esophagitis Qualified Code(s): K21.9 - Gastro-esophageal reflux disease without esophagitis Plan: GERD (5) Hidradenitis suppurativa of right axilla: Comment: Excision August 2020 Code(s): L73.2 - Hidradenitis suppurativa Plan: Patient has seen a surgeon and had excision and being followed up (6) Apical mural thrombus: Code(s): I51.3 - Intracardiac thrombosis, not elsewhere classified Plan: Last echocardiogram negative (7) Cerebrovascular accident, embolic: Code(s): I63.9 - Cerebral infarction, unspecified Qualifiers: Precerebral and cerebral artery: unspecified cerebral artery Qualified Code(s): I63.40 - Cerebral infarction due to embolism of unspecified cerebral artery Plan: Continue with aspirin (8) Essential hypertension: Code(s): I10 - Essential (primary) hypertension Plan: Continue with blood pressure medication. Decrease salt intake and exercise patient follows up with Nephrology. JUST got machine for BP testing and will be monitoring . states did not take med todays - was in a hurry. concerns discussed with patient (9) Hyperlipidemia, unspecified: Code(s): E78.5 - Hyperlipidemia, unspecified Qualifiers: Hyperlipidemia type: moderate mixed hyperlipidemia not requiring statin therapy Qualified Code(s): E78.2 - Mixed hyperlipidemia Plan: Avoid fried foods, chicken skin, eggs, butter margarine, pastries and meat. Be it pork or beef they have a lot of cholesterol LDL goal of less than 70 last blood work was in October 2022 (10) Chronic kidney disease, stage 4 (severe): Code(s): N18.4 - Chronic kidney disease, stage 4 (severe) Plan: Controlled blood pressure avoid NSAIDs patient is being referred for preemptive transplantation Orders: Orders Complete Blood Count Auto Diff Today E11.22 - Type 2 diabetes mellitus with diabetic chronic kidney disease, N18.30 - Chronic kidney disease, stage 3 unspecified Lipid Panel Today E11.22 - Type 2 diabetes mellitus with diabetic chronic kidney disease, E78.00 - Pure hypercholesterolemia, unspecified, N18.30 - Chronic kidney disease, stage 3 unspecified Thyroid Stimulating Hormone Today E11.22 - Type 2 diabetes mellitus with diabetic chronic kidney disease, N18.30 - Chronic kidney disease, stage 3 unspecified Comprehensive Met. Panel Today E11.22 - Type 2 diabetes mellitus with diabetic chronic kidney disease, N18.30 - Chronic kidney disease, stage 3 unspecified Free T4 (Free Thyroxine) Today E11.22 - Type 2 diabetes mellitus with diabetic chronic kidney disease, N18.30 - Chronic kidney disease, stage 3 unspecified Vitamin B12 and Folate Today E11.22 - Type 2 diabetes mellitus with diabetic chronic kidney disease, N18.30 - Chronic kidney disease, stage 3 unspecified B Type Natriuretic Peptide Today E11.22 - Type 2 diabetes mellitus with diabetic chronic kidney disease, N18.30 - Chronic kidney disease, stage 3 unspecified AMB Hemoglobin A1c Today Z13.9 - Encounter for screening, unspecified Medications: Refilled omeprazole 20 mg PO DAILY 90 caps 1RF E11.22 - Type 2 diabetes mellitus with diabetic chronic kidney disease, N18.30 - Chronic kidney disease, stage 3 unspecified Coding Level of Care Code Est Pt Level 4 (74085) Diagnoses Type 2 diabetes mellitus with hyperglycemia, with long-term current use of insulin E11.65; Z79.4 Diabetes mellitus long term acute care registered nurse insulin use: with long term acute care registered nurse use Obesity (BMI 30-39.9) E66.9 Coronary artery disease involving [place] coronary artery of [place] heart without angina pectoris I25.10 Coronary Disease-Associated Artery/Lesion type: [place] artery [place] vs. transplanted heart: [place] heart Associated angina: without angina Gastroesophageal reflux disease without esophagitis K21.9 Esophagitis presence: without esophagitis Hidradenitis suppurativa of right axilla L73.2 Apical mural thrombus I51.3 Cerebrovascular accident (CVA) due to embolism of cerebral artery I63.40 Precerebral and cerebral artery: unspecified cerebral artery Essential hypertension I10 Moderate mixed hyperlipidemia not requiring statin therapy E78.2 Hyperlipidemia type: moderate mixed hyperlipidemia not requiring statin therapy Chronic kidney disease, stage 4 (severe) N18.4
== END 2023-06-30 10:59 | disposition home or self-care (01) ==
PROVIDERS: PCP Internal Medicine; Visit Provider Internal Medicine
DX: E11.22 Type 2 diabetes mellitus with diabetic chronic kidney disease (principal); Z79.4 Long term (current) use of insulin; N18.4 Chronic kidney disease, stage 4 (severe); K21.9 Gastro-esophageal reflux disease without esophagitis; I12.9 Hypertensive chronic kidney disease with stage 1 through stage 4 chronic kidney disease, or unspecified chronic kidney disease; I63.40 Cerebral infarction due to embolism of unspecified cerebral artery; E66.9 Obesity, unspecified; Z68.32 Body mass index [BMI] 32.0-32.9, adult; I25.10 Atherosclerotic heart disease of native coronary artery without angina pectoris; L73.2 Hidradenitis suppurativa; I51.3 Intracardiac thrombosis, not elsewhere classified; E78.2 Mixed hyperlipidemia
CPT/HCPCS: 83036; 99214

== ENCOUNTER 2023-06-30 11:34 | Outpatient (REF) | payer OTHER, SELFPAY ==
[2023-06-30 11:57] LABS: MANUAL DIFF FLAG NO
[2023-06-30 12:12] LABS: Basophils Absolute Auto 0.1 X10*3/uL (0.0-0.2); Basophils Percent Auto 0.8 % (0-2); Eosinophils Absolute Auto 0.1 X10*3/uL (0.0-0.4); Eosinophils Percent Auto 0.8 % (0-4); Hematocrit 49.7 % (37.0-47.0); Hemoglobin 15.4 g/dl (12.0-16.0); Imm Gran Abs Auto 0.02 X10*3/uL (0.00-0.03); Imm Gran Pct Auto 0.3 % (0.0-0.4); Lymphocytes Absolute Auto 1.9 X10*3/uL (1.2-4.9); Lymphocytes Percent Auto 26.6 % (20-40); Mean Corpuscular Hemoglobin 26.5 pg (27.0-33.0); Mean Corpuscular Volume 85.5 fL (80.0-98.0); Mean Platelet Volume 11.5 fL (9.4-12.3); Monocytes Absolute Auto 0.5 X10*3/uL (0.1-1.2); Monocytes Percent Auto 6.2 % (2-11); Neutrophils Absolute Auto 4.8 x10*3/uL (2.0-8.3); Neutrophils Percent Auto 65.3 % (45-73); Platelet Count 203 X10*3/uL (160-400); Red Blood Count 5.81 X10*6/uL (4.20-5.50); White Blood Count 7.3 X10*3/uL (4.8-10.8)
[2023-06-30 12:50] LABS: B Type Natriuretic Peptide 297 pg/mL (<100)
[2023-06-30 13:06] LABS: Alanine Aminotransferase 15 U/L (0-31); Albumin Level 3.9 g/dL (3.5-5.0); Alkaline Phosphatase 87 U/L (39-117); Anion Gap 14 (12-20); Aspartate Amino Transferase 17 U/L (5-31); Bilirubin Total 0.3 mg/dL (0.0-1.0); Blood Urea Nitrogen 38 mg/dL (9-16); Calcium 10.5 mg/dL (8.4-10.2); Carbon Dioxide 16 mmol/L (22-29); Chloride 110 mmol/L (96-108); Estimated Glomerular Filt Rate 19; Glucose Random 236 mg/dL (60-115); Potassium 4.3 mmol/L (3.3-5.1); Sodium 136 mmol/L (135-145); Total Protein 7.7 g/dL (6.5-8.0)
[2023-06-30 13:08] LABS: Anion Gap 12 (12-20); Blood Urea Nitrogen 38 mg/dL (9-16); Calcium 10.4 mg/dL (8.4-10.2); Carbon Dioxide 17 mmol/L (22-29); Chloride 110 mmol/L (96-108); Estimated Glomerular Filt Rate 19; Glucose Random 236 mg/dL (60-115); Potassium 4.2 mmol/L (3.3-5.1); Sodium 135 mmol/L (135-145)
[2023-06-30 13:15] LABS: Free T4 (Free Thyroxine) 0.93 ng/dL (0.71-1.85); Thyroid Stimulating Hormone 1.22 uIU/mL (0.32-4.0)
[2023-06-30 13:31] LABS: Folate 6.2 ng/mL (> or = 4.0); Vitamin B12 874 pg/mL (200-900)
[2023-07-03 12:39] LABS: Prot Elec - Albumin 3.8 g/dL (3.8-4.8); Prot Elec - Alpha1 0.4 g/dL (0.2-0.3); Prot Elec - Alpha2 0.9 g/dL (0.5-0.9); Prot Elec - Beta 1 0.6 g/dL (0.4-0.6); Prot Elec - Beta 2 0.5 g/dL (0.2-0.5); Prot Elec - Gamma 1.3 g/dL (0.8-1.7); Prot Elec - Total Protein 7.5 g/dL (6.1-8.1)
[2023-07-03 14:39] LABS: Calcium (PTHI) 10.8 mg/dL (8.6-10.4); PTHI 268 pg/mL (16-77)
== END 2023-06-30 11:35 | disposition home or self-care (01) ==
LOC: HO.LAB 11:34
PROVIDERS: Absent Provider Internal Medicine; PCP Internal Medicine; Visit Provider Internal Medicine Hypertension Specialist
DX: E11.22 Type 2 diabetes mellitus with diabetic chronic kidney disease (principal); E78.00 Pure hypercholesterolemia, unspecified; N18.4 Chronic kidney disease, stage 4 (severe)
CPT/HCPCS: 36415; 80048; 80053; 82607; 82746; 83880; 83970; 84165; 84439; 84443; 85025

== ENCOUNTER 2023-07-12 13:24 | Outpatient (AMB) | payer OTHER, SELFPAY ==
--- NOTE | 2023-07-12 13:31 | A.OFFPC_ITS ---
Vital Signs 07/12/23 13:32 Height 5 ft 6 in Weight 201 lb 6 oz BMI 32.5 BP 120/70 Blood Pressure Location Lt brachial Position Sitting Pulse 62 Pulse Source Pulse Oximeter Pulse Oximetry (%) 100 Oxygen Delivery Method Room Air Intake Visit Reasons: Lab Results - Per Dr Sanders Intake Note: Patient is here to follow up on lab results. 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 Required: No Enologist: Not Required per policy Accompanied by: Self / Same As Patient Allergies cephalexin [From KEFLEX] Allergy (Intermediate, Verified 07/12/23 13:32) HIVES Medication List - Last Reconciled 07/12/23 by Alfredo Sanders MD alcohol swabs 1 pad topical TID 90 days amlodipine 10 mg PO DAILY aspirin 81 mg PO DAILY blood pressure monitor (Blood Pressure Kit) As directed blood sugar diagnostic (FreeStyle Lite Strips) 4 times a day dapagliflozin propanediol (Farxiga) 10 mg PO DAILY escitalopram oxalate 10 mg PO DAILY flash glucose scanning reader (FreeStyle Patrick 14 Day [place]) As directed flash glucose sensor (FreeStyle Patrick 14 Day Sensor kit) every 14 days FreeStyle Lite Meter (blood-glucose meter) 4 times a day NS glucose (Dex4 Glucose) 12 grams (3 x 4 gram) PO Q15M PRN insulin glargine U-300 conc (Toujeo Max U-300 SoloStar) 64 units (0.2133 mL) subcut DAILY 30 days insulin lispro 10-24 units20 units before meals (16 units light meals), + 2u for bg over 200, +4 unit bg >250, 10 u with snack. subcutaneously use as directed; 30 days lancets As directed 3x/day losartan 50 mg PO DAILY metoprolol succinate ER 200 mg PO DAILY omeprazole 20 mg PO DAILY pen needle, diabetic 5 times a day rosuvastatin 20 mg PO BEDTIME zolpidem 10 mg PO BEDTIME PRN 30 days Tobacco use date assessed: 07/12/23 Dental Screening Dental Screen Date: 07/12/23 Did you have a dental visit in the last 12 months?: Yes Did you have a dental problem in the last 6 months where you did not have access to dental care?: No Was dental information given to patient?: Patient has dentist HPI Lab Results - Per Dr Sanders HPI Details Was recently seen June 2020 53-year-old obese female with diabetes mellitus coronary artery disease GERD history of CVA hypertension hypercholesterolemia chronic kidney disease blood work was requested and is here for follow-up [facility] Medical History Acute angle-closure glaucoma Anxiety and depression Apical mural thrombus Axillary hidradenitis suppurativa Carotid stenosis Cerebrovascular accident, embolic Coronary artery disease Coronary artery dissection CVA (cerebral vascular accident) Diabetic nephropathy associated with type 2 diabetes mellitus Diabetic polyneuropathy associated with type 2 diabetes mellitus Essential hypertension GERD (gastroesophageal reflux disease) H. pylori infection Hidradenitis suppurativa Hidradenitis suppurativa of right axilla HTN (hypertension) Hypercholesterolemia Hyperlipidemia, unspecified Hypertension retirement (current) use of insulin Obesity (BMI 30-39.9) On anticoagulant therapy On beta jacqueline at home Peripheral vascular disease Precordial chest pain Proliferative diabetic retinopathy associated with type 2 diabetes mellitus Pulmonary embolism Skin tag Type 2 diabetes mellitus with chronic kidney disease Type 2 diabetes mellitus with hyperglycemia Vitamin D deficiency Surgical History History of surgery (03/21/23) Hx of excision of mass History of axillary surgery History of axillary surgery (08/21/20) History of esophagogastroduodenoscopy (EGD) History of angioplasty History of cardiac catheterization (~03/30/16) S/P LILY-BSO History of endometrial ablation Amputation of right index finger History of tubal ligation Family History Mother Type 2 diabetes mellitus Hypertension Maternal Grandmother Myocardial infarction Social History Household Members: None Housing: Apartment Are you a primary medicare sales representative to a significant other at home: No Do you presently have visiting nurse or other home services: No Alcohol intake: never Patient Tobacco Use Status: Former Tobacco user Quit Date: 2017 Tobacco use type: Cigarette e-Cigarette/Vaping Use: Never Used Second Hand Smoke Exposure: No Substance Use Type: Marijuana service: No Current occupational status: unemployed Cognitive needs: No Hearing needs: No Vision needs: Yes Questionnaire Thrive Questionnaire Date Thrive assessed: 01/12/23 BRAXTON-7 AMB Questionnaire BRAXTON-7 Date BRAXTON - 7 assessed: 01/12/23 Source: Developed by Drs. Tushar Villar, Dinorah Ariza, Kobi Carver and colleagues, with an educational neto from [employer] Physical exam (Primary Care) Vital Signs: Last Vital Signs Pulse 62 07/12/23 13:32 BP 120/70 07/12/23 13:32 Pulse Ox 100 07/12/23 13:32 Oxygen Delivery Method Room Air 07/12/23 13:32 BMI result Body Mass Index 32.5 Tobacco/Smoking Status: Tobacco use Status Tobacco use date assessed 07/12/23 07/12/23 13:44 Patient Tobacco Use Status Former Tobacco user 07/12/23 13:44 Tobacco use type Cigarette 07/12/23 13:44 e-Cigarette/Vaping Use Never Used 07/12/23 13:44 Thrive Assessment: Date of Thrive Assessment Date Thrive assessed 01/12/23 07/12/23 13:44 Const General: alert; No acute distress Eyes Conjunctivae: conjunctivae normal Resp Auscultation: clear to auscultation bilaterally Cardio Rate: regular rate Rhythm: regular rhythm GI Inspection: Yes normal to inspection Extrem General: Yes normal to inspection and No edema Office Procedures Flu Questionnaire Does the patient have a severe egg allergy?: No Does the patient have severe life threatening allergies?: No Does the patient have a fever or illness today?: No Has the patient ever had Guillain-[place] Syndrome?: No Has the patient ever had any past reaction to a flu shot?: No Comment: afebrile. patient consented for flu shot today Immunizations flu vacc [id number] 6mos up(PF) 60 mcg(15 mcgx4)/0.5 mL IM syringe Performing Provider: Alfredo Sanders MD [place] [facility] [place] [facility] Administered by: Fletcher Clemons RN on 07/12/23 13:55 Dose Route Admin Location Dispensed Lot Number Expiration Date NDC Polysomnographic Technologist 0.5 mL IM Left Deltoid 0.5 mL [id number] 04/07/24 [id number] [employer] VIS Given Date VIS Provided VIS Publication Date 07/12/23 Single Vaccine 21 Eligibility Eligibility Date Funding Source [facility] Eligible 07/12/23 Private Administration Comments: patient tolerated well Assessment and Plan Assessment & Plan (1) Atherosclerotic cardiovascular disease: Code(s): I25.10 - Atherosclerotic heart disease of [place] coronary artery without angina pectoris Plan: Control the cholesterol, weight, blood pressure, diabetes (2) Hyperlipidemia, unspecified: Code(s): E78.5 - Hyperlipidemia, unspecified Qualifiers: Hyperlipidemia type: moderate mixed hyperlipidemia not requiring statin therapy Qualified Code(s): E78.2 - Mixed hyperlipidemia Plan: Avoid fried foods, chicken skin, eggs, butter margarine, pastries and meat. Be it pork or beef they have a lot of cholesterol LDL goal of less than 70 and triglyceride of less than 150 (3) Essential hypertension: Code(s): I10 - Essential (primary) hypertension Plan: Continue with blood pressure medication. Decrease salt intake and exercise (4) Hyperparathyroidism: Code(s): E21.3 - Hyperparathyroidism, unspecified Plan: Discussed about hyperparathyroidism calcium and requesting for bone density. Patient is being referred to Endocrinology (5) Type 2 diabetes mellitus with hyperglycemia: Comment: IDDM, Dr. Nguyen and Calista Code(s): E11.65 - Type 2 diabetes mellitus with hyperglycemia Qualifiers: Diabetes mellitus superintendent marine oil terminal insulin use: with fci use Qualified Code(s): E11.65 - Type 2 diabetes mellitus with hyperglycemia; Z79.4 - retirement (current) use of insulin Plan: Decrease the amount of carbohydrate intake, pasta, bread, rice and potatoes are all sugar and that is aside from all the sweet stuff, remember that fruits are good but they are Sweet also. Hemoglobin A1c goal of less than 6.5. Patient needs refills on the alcohol swabs as well as the monitor. Orders: Orders Influenza [id number] Immunization Today Z23 - Encounter for immunization US renal BI Today E21.3 - Hyperparathyroidism, unspecified XR DEXA axial skeleton Today E21.3 - Hyperparathyroidism, unspecified, M81.0 - Age-related osteoporosis without current pathological fracture Referrals Endocrinology Referral E11.65 - Type 2 diabetes mellitus with hyperglycemia, E21.3 - Hyperparathyroidism, unspecified Coding Level of Care Code Tele New Pt Level 5 (17951) Diagnoses Atherosclerotic cardiovascular disease I25.10 Moderate mixed hyperlipidemia not requiring statin therapy E78.2 Hyperlipidemia type: moderate mixed hyperlipidemia not requiring statin therapy Essential hypertension I10 Hyperparathyroidism E21.3 Type 2 diabetes mellitus with hyperglycemia, with long-term current use of insulin E11.65; Z79.4 Diabetes mellitus superintendent marine oil terminal insulin use: with fci use
[2023-07-12 13:32] VITALS: BP 120/70; PULSE 62; O2SAT 100; BMI 32.5
== END 2023-07-12 17:45 | disposition home or self-care (01) ==
PROVIDERS: PCP Internal Medicine; Visit Provider Internal Medicine
DX: E21.3 Hyperparathyroidism, unspecified (principal); E11.65 Type 2 diabetes mellitus with hyperglycemia; Z79.4 Long term (current) use of insulin; I10 Essential (primary) hypertension; Z23 Encounter for immunization; I25.10 Atherosclerotic heart disease of native coronary artery without angina pectoris
CPT/HCPCS: 90471; 90686; 99214

== ENCOUNTER 2023-09-18 11:06 | Outpatient (REF) | payer OTHER, SELFPAY ==
[2023-09-18 12:39] LABS: Hemoglobin 14.8 g/dl (12.0-16.0); Mean Corpuscular HGB Conc 31.5 g/dl (31.0-35.0); Mean Corpuscular Hemoglobin 26.2 pg (27.0-33.0); Mean Corpuscular Volume 83.3 fL (80.0-98.0); Mean Platelet Volume 12.1 fL (9.4-12.3); Platelet Count 246 X10*3/uL (160-400); Red Blood Count 5.64 X10*6/uL (4.20-5.50); Red Cell Distribution Width 15.7 % (11.0-16.0); White Blood Count 9.3 X10*3/uL (4.8-10.8)
[2023-09-18 13:23] LABS: Anion Gap 12 (12-20); Blood Urea Nitrogen 43 mg/dL (9-16); Calcium 10.1 mg/dL (8.4-10.2); Carbon Dioxide 22 mmol/L (22-29); Chloride 106 mmol/L (96-108); Estimated Glomerular Filt Rate 16; Potassium 5.1 mmol/L (3.3-5.1); Sodium 135 mmol/L (135-145)
== END 2023-09-18 11:07 | disposition home or self-care (01) ==
LOC: HO.LAB 11:06
PROVIDERS: PCP Internal Medicine; Visit Provider Internal Medicine Hypertension Specialist
DX: I12.9 Hypertensive chronic kidney disease with stage 1 through stage 4 chronic kidney disease, or unspecified chronic kidney disease (principal); E11.22 Type 2 diabetes mellitus with diabetic chronic kidney disease; N18.4 Chronic kidney disease, stage 4 (severe); E11.21 Type 2 diabetes mellitus with diabetic nephropathy
CPT/HCPCS: 36415; 80051; 82310; 82565; 84520; 85027; 99212

== ENCOUNTER 2023-09-18 11:35 | Outpatient (AMB) | payer OTHER, SELFPAY ==
[2023-09-18 11:36] VITALS: BP 138/90; PULSE 61; O2SAT 98; BMI 33.2
--- NOTE | 2023-09-18 11:36 | HO.NEPHOV ---
HPI HPI Comments History of Present Illness Details Jaclyn is a middle-aged woman with a history of longstanding diabetes mellitus complicated by CKD. She has stage IV CKD. Serum creatinine has been stable for the last several months. She is here for regular follow-up. In the past she was on BELINDA-inhibitor and alert hyperkalemia. This was discontinued. She wishes to amlodipine and she is able to tolerate this. She is currently onlosartan 50 mg daily. She has history of recurrent hyperkalemia. 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 pylori infection Anxiety and depression Acute angle-closure glaucoma CVA (cerebral vascular accident) GERD (gastroesophageal reflux disease) Hypertension Coronary artery disease Hypercholesterolemia Obesity (BMI 30-39.9) Type 2 diabetes mellitus with hyperglycemia Surgical History History of surgery (03/21/23) Hx of excision of mass History of axillary surgery History of axillary surgery (08/21/20) History of esophagogastroduodenoscopy (EGD) History of angioplasty History of cardiac catheterization (~03/30/16) S/P LILY-BSO History of endometrial ablation Amputation of right index finger History of tubal ligation Family History Mother Type 2 diabetes mellitus Hypertension Maternal Grandmother Myocardial infarction Social History Household Members: None Housing: Apartment Are you a primary out of school hours care worker to a significant other at home: No Do you presently have visiting nurse or other home services: No Alcohol intake: never Comment: medicated, see MAR Patient Tobacco Use Status: Former Tobacco user Quit Date: 2017 Tobacco use type: Cigarette e-Cigarette/Vaping Use: Never Used Second Hand Smoke Exposure: No Substance Use Type: Marijuana service: No Current occupational status: unemployed Cognitive needs: No Hearing needs: No Vision needs: Yes Vital Signs 09/18/23 11:36 Height 5 ft 6 in Weight 206 lb BMI 33.2 BP 138/90 H Blood Pressure Location Lt brachial Position Sitting Pulse 61 Pulse Source Pulse Oximeter Pulse Oximetry (%) 98 Oxygen Delivery Method Room Air Physical Exam Vital Signs: Last Vital Signs Pulse 61 09/18/23 11:36 BP 138/90 H 09/18/23 11:36 Pulse Ox 98 09/18/23 11:36 Oxygen Delivery Method Room Air 09/18/23 11:36 BMI result Body Mass Index 33.2 Const General: comfortable Nutritional Appearance: well nourished Orientation/consciousness: patient oriented x3 HEENT Head: No normal to inspection Mouth: moist mucous membranes Neck Neck: Yes supple and Yes no JVD Resp Auscultation: clear to auscultation bilaterally, no rales and rub present Cardio Jugular venous distension: no JVD Palpation: no palpable S3 and no palpable S4 Heart sounds: no rubs GI Palpation (GI): Soft to palpation and nontender Percussion: No Fluid wave present General: Yes no CVA tenderness Back/Spine/Pelvis Back: no CVA tenderness Skin General skin exam: no rashes or lesions noted Neuro General: patient oriented x3 Extrem General: Yes no pedal edema and No clubbing Assessment & Plan Assessment & Plan (1) Chronic kidney disease, stage 4 (severe): Code(s): N18.4 - Chronic kidney disease, stage 4 (severe) (2) Essential hypertension: Code(s): I10 - Essential (primary) hypertension (3) Diabetic nephropathy associated with type 2 diabetes mellitus: Code(s): E11.21 - Type 2 diabetes mellitus with diabetic nephropathy Plan Jaclyn has stage IV CKD due to underlying diabetic nephropathy. Renal function has been stable for the last few months. Today's labs are pending. Goal is to slow the progression of renal disease. Continue to avoid nephrotoxic agents including NSAIDs. Encouraged her to stand low-sodium diet. Hemoglobin A1c should be maintained less than 7%. Recent A1c was 7.8%. Blood pressure to be maintained less than 130/80. We discussed importance of weight loss as well. She has no evidence of anemia. Hemoglobin was 14.5. Will continue to screen for secondary hyperparathyroidism. As for the hyperkalemia increase her to stay on low-potassium diet. Unable to increase the dose of losartan due to hyperkalemia. I will refer her for preemptive renal transplant evaluation. Orders: Orders Calcium 3 Months N18.4 - Chronic kidney disease, stage 4 (severe) Complete Blood Count no Diff 3 Months N18.4 - Chronic kidney disease, stage 4 (severe) Parathyroid Hormone Intact 3 Months N18.4 - Chronic kidney disease, stage 4 (severe) Electrolytes 3 Months N18.4 - Chronic kidney disease, stage 4 (severe) Blood Urea Nitrogen 3 Months N18.4 - Chronic kidney disease, stage 4 (severe) Creatinine 3 Months N18.4 - Chronic kidney disease, stage 4 (severe) Referrals Transplant Surgery Referral N18.4 - Chronic kidney disease, stage 4 (severe) Coding Level of Care Code Est Pt Level 4 (82885) Diagnoses Chronic kidney disease, stage 4 (severe) N18.4 Essential hypertension I10 Diabetic nephropathy associated with type 2 diabetes mellitus E11.21 Results Reviewed Nephrology Results: Hgb 14.8 g/dl (12.0-16.0) 09/18/23 WBC 9.3 X10*3/uL (4.8-10.8) 09/18/23 Plt Count 246 X10*3/uL (160-400) 09/18/23 Sodium 135 mmol/L (135-145) 06/30/23 Potassium 4.2 mmol/L (3.3-5.1) 06/30/23 Chloride 110 mmol/L (96-108) H 06/30/23 Carbon Dioxide 17 mmol/L (22-29) L 06/30/23 BUN 38 mg/dL (9-16) H 06/30/23 Creatinine 2.66 mg/dL (0.5-1.4) H 06/30/23 Calcium 10.4 mg/dL (8.4-10.2) H 06/30/23 PTH Intact 268 pg/mL (16-77) H 06/30/23
== END 2023-09-18 12:03 | disposition home or self-care (01) ==
PROVIDERS: PCP Internal Medicine; Visit Provider Internal Medicine Hypertension Specialist
DX: I12.9 Hypertensive chronic kidney disease with stage 1 through stage 4 chronic kidney disease, or unspecified chronic kidney disease (principal); N18.4 Chronic kidney disease, stage 4 (severe); E11.21 Type 2 diabetes mellitus with diabetic nephropathy
CPT/HCPCS: 99214

== ENCOUNTER 2023-10-17 08:43 | Outpatient (AMB) | payer OTHER, SELFPAY ==
--- NOTE | 2023-10-17 09:02 | MHC.OFFVIS ---
Intake Vital Signs 10/17/23 09:09 Height 5 ft 6 in Weight 202 lb 6.15 oz BMI 32.7 BP 140/80 H Blood Pressure Location Lt brachial Position Sitting Pulse 80 Intake Visit Reasons: 6 month follow up Intake Note: 6 month follow up Border Inspector Required: No Accompanied by: Self / Same As Patient Allergies cephalexin [From KEFLEX] Allergy (Intermediate, Verified 10/17/23 09:10) HIVES Medication List - Last Reconciled 10/17/23 by Zander May MD alcohol swabs 1 pad topical TID 90 days amlodipine 10 mg PO DAILY aspirin 81 mg PO DAILY blood pressure monitor (Blood Pressure Kit) As directed blood sugar diagnostic (FreeStyle Lite Strips) 4 times a day dapagliflozin propanediol (Farxiga) 10 mg PO DAILY flash glucose scanning reader (FreeStyle Patrick 14 Day [place]) As directed flash glucose sensor (FreeStyle Patrick 14 Day Sensor kit) every 14 days FreeStyle Lite Meter (blood-glucose meter) 4 times a day NS glucose (Dex4 Glucose) 12 grams (3 x 4 gram) PO Q15M PRN insulin glargine U-300 conc (Toujeo Max U-300 SoloStar) 64 units (0.2133 mL) subcut DAILY 30 days insulin lispro 10-24 units20 units before meals (16 units light meals), + 2u for bg over 200, +4 unit bg >250, 10 u with snack. subcutaneously use as directed; 30 days lancets As directed 3x/day losartan 50 mg PO DAILY metoprolol succinate ER 200 mg PO DAILY omeprazole 20 mg PO DAILY pen needle, diabetic 5 times a day rosuvastatin 20 mg PO BEDTIME tramadol 50 mg PO Q6H PRN 30 days zolpidem 10 mg PO BEDTIME PRN 30 days HPI HPI Comments History of Present Illness Details Phoebe returns for follow-up regarding various cardiac issues. 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 She was on anticoagulation with warfarin for a couple of years after that, but then stopped it as she did not want take anything. In March 2016, she was hospitalized once again for non ST elevation myocardial infarction and underwent cardiac catheterization and bare metal stenting to circumflex. Also carries a diagnosis of pulmonary embolism. Was on anticoagulation but not anymore. She has a long history of noncompliance. She states that she takes her medications but when I questioned her if she took it this morning she states not yet. Otherwise, no clear-cut complaints like angina or shortness of breath or in fact anything cardiac sounding. [facility] Medical History On anticoagulant therapy Hidradenitis suppurativa Pulmonary embolism Skin tag Type 2 diabetes mellitus with chronic kidney disease Precordial chest pain Vitamin D deficiency HTN (hypertension) On beta jacqueline at home Axillary hidradenitis suppurativa Proliferative diabetic retinopathy associated with type 2 diabetes mellitus Diabetic polyneuropathy associated with type 2 diabetes mellitus Diabetic nephropathy associated with type 2 diabetes mellitus emt intermediate (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 pylori infection Anxiety and depression Acute angle-closure glaucoma CVA (cerebral vascular accident) GERD (gastroesophageal reflux disease) Hypertension Coronary artery disease Hypercholesterolemia Obesity (BMI 30-39.9) Type 2 diabetes mellitus with hyperglycemia Surgical History History of surgery (03/21/23) Hx of excision of mass History of axillary surgery History of axillary surgery (08/21/20) History of esophagogastroduodenoscopy (EGD) History of angioplasty History of cardiac catheterization (~03/30/16) S/P LILY-BSO History of endometrial ablation Amputation of right index finger History of tubal ligation Family History Mother Type 2 diabetes mellitus Hypertension Maternal Grandmother Myocardial infarction Social History Household Members: None Housing: Apartment Are you a primary ostomy care nurse to a significant other at home: No Do you presently have visiting nurse or other home services: No Alcohol intake: never Comment: medicated, see MAR Patient Tobacco Use Status: Former Tobacco user Quit Date: 2017 Tobacco use type: Cigarette e-Cigarette/Vaping Use: Never Used Second Hand Smoke Exposure: No Substance Use Type: Marijuana service: No Current occupational status: unemployed Cognitive needs: No Hearing needs: No Vision needs: Yes Review of Systems Const Denies weakness ENT Denies dizziness Card Denies chest pain, Denies chest pain with activity, Denies syncope, Denies rapid heart rate, Denies pedal edema, Denies edema, Denies leg edema, Denies lightheadedness, Denies palpitations, Denies dyspnea, Denies dyspnea on exertion and Denies orthopnea Resp Denies cough, Denies dyspnea and Denies dyspnea on exertion GI Denies hematochezia and Denies change in stool character Musc Denies abnormal gait, Denies muscle cramps, Denies muscle weakness, Denies numbness, Denies radiating pain into limb and Denies tingling Neuro Denies abnormal gait, Denies dizziness, Denies syncope, Denies numbness, Denies tingling and Denies weakness Endo Denies palpitations Physical Exam Vital Signs: Last Vital Signs Pulse 80 10/17/23 09:09 BP 140/80 H 10/17/23 09:09 BMI result Body Mass Index 32.7 Const General: comfortable and no acute distress Orientation/consciousness: patient oriented x3 HEENT Other: Unremarkable Head: Yes normal to inspection Neck Neck: Yes normal visual inspection Chest Chest palpation & inspection: normal inspection of the chest Resp Auscultation: clear to auscultation bilaterally Cardio Palpation: normal PMI Heart sounds: S1 normal heart sound present, S2 normal heart sound present, no gallops, no murmurs and no rubs GI Palpation (GI): Soft to palpation Back/Spine/Pelvis Other: unremarkable Skin General skin exam: no rashes or lesions noted Neuro General: patient oriented x3 Extrem General: Yes normal to inspection Psych Mental Status: mental status grossly normal Assessment & Plan Assessment & Plan (1) Atherosclerotic cardiovascular disease: Code(s): I25.10 - Atherosclerotic heart disease of [place] coronary artery without angina pectoris Plan: Cardiac catheterization from 2016 reviewed. She had distal circumflex 100% stenosis with evidence of thrombus. Bare metal stent placed due to noncompliance. There was moderate stenosis in the mid LAD. Chronic dissection in the distal left anterior still seen. Last echocardiogram from March with LVEF 54%; aneurysmal apex. Clinically, she has got no overt symptoms at this time. Remains on aspirin, statins, Zetia but still unclear compliance although she states she takes everything. No new changes. (2) Coronary artery dissection: Code(s): I25.42 - Coronary artery dissection Plan: Stable. (3) Apical mural thrombus: Code(s): I51.3 - Intracardiac thrombosis, not elsewhere classified Plan: She was on warfarin in the past several years ago. In the last echocardiogram, no thrombus noted. (4) Cerebrovascular accident, embolic: Code(s): I63.9 - Cerebral infarction, unspecified Qualifiers: Precerebral and cerebral artery: unspecified cerebral artery Qualified Code(s): I63.40 - Cerebral infarction due to embolism of unspecified cerebral artery Plan: No residual deficit. (5) Essential hypertension: Code(s): I10 - Essential (primary) hypertension Plan: Borderline blood pressure today. However, she states she has not taken any medications yet. Hence no changes. (6) Type 2 diabetes mellitus with unspecified complications: Code(s): E11.8 - Type 2 diabetes mellitus with unspecified complications Plan: Most recently, hemoglobin A1c is 7.8%. Higher than ideal. In the past, has been even greater than 10% at times. She is well aware of poorly controlled diabetes and cardiovascular implications. (7) Chronic kidney disease: Code(s): N18.9 - Chronic kidney disease, unspecified Plan: Most recent creatinine is 3. In the past, it has been in the mid 2s. Orders: Orders CA echo transthoracic complete 6 Months I25.10 - Atherosclerotic heart disease of [place] coronary artery without angina pectoris Coding Level of Care Code Est Pt Level 4 (57523) Diagnoses Atherosclerotic cardiovascular disease I25.10 Coronary artery dissection I25.42 Apical mural thrombus I51.3 Cerebrovascular accident (CVA) due to embolism of cerebral artery I63.40 Precerebral and cerebral artery: unspecified cerebral artery Essential hypertension I10 Type 2 diabetes mellitus with unspecified complications E11.8 Chronic kidney disease N18.9
[2023-10-17 09:09] VITALS: BP 140/80; PULSE 80; BMI 32.7
== END 2023-10-17 09:23 | disposition home or self-care (01) ==
PROVIDERS: PCP Internal Medicine; Visit Provider Internal Medicine
DX: I25.10 Atherosclerotic heart disease of native coronary artery without angina pectoris (principal); I25.42 Coronary artery dissection; I51.3 Intracardiac thrombosis, not elsewhere classified; I63.40 Cerebral infarction due to embolism of unspecified cerebral artery; I12.9 Hypertensive chronic kidney disease with stage 1 through stage 4 chronic kidney disease, or unspecified chronic kidney disease; E11.8 Type 2 diabetes mellitus with unspecified complications; N18.9 Chronic kidney disease, unspecified
CPT/HCPCS: 99214

== ENCOUNTER → 2023-10-17 08:43 | Outpatient (BNVA) | payer OTHER, SELFPAY | PROVIDERS: PCP Internal Medicine; Visit Provider Internal Medicine | DX: I25.10 Atherosclerotic heart disease of native coronary artery without angina pectoris (principal); I25.42 Coronary artery dissection; I51.3 Intracardiac thrombosis, not elsewhere classified; I63.40 Cerebral infarction due to embolism of unspecified cerebral artery; E11.22 Type 2 diabetes mellitus with diabetic chronic kidney disease; I12.9 Hypertensive chronic kidney disease with stage 1 through stage 4 chronic kidney disease, or unspecified chronic kidney disease; N18.9 Chronic kidney disease, unspecified | CPT/HCPCS: 99212 ==

== ENCOUNTER 2023-11-24 07:44 | Outpatient (REF) | payer OTHER, SELFPAY ==
--- NOTE | ~2023-11-24 | MM_ITS ---
EXAMINATION: BONE DENSITOMETRY CLINICAL INDICATION: Age-related osteoporosis without current pathological fracture. COMPARISON: This is the patient's baseline examination. TECHNIQUE: Using a kompany DXA System (software version: 13.1) manufactured by [employer], dual-energy x-ray absorptiometry was performed of the lumbar spine, left hip, and left forearm radius 33%. The images are of good technical quality. Summary results are attached. FINDINGS: LEFT FEMUR, NECK: BMD 1.093 g/cm2, Z-score 0.8, T-score 0.4, normal. LEFT FEMUR, TOTAL: BMD 1.166 g/cm2, Z-score 1.3, T-score 1.3, normal. AP SPINE L1-L4: BMD 1.493 g/cm2, Z-score 2.5, T-score 2.6, normal. LEFT FOREARM RADIUS 33%: BMD 0.932 g/cm2, Z-score 1.0, T-score 0.6, normal. IDENTIFIED RISK FACTORS: Menopause, hysterectomy, renal, hyperparathyroid, right oophorectomy. HISTORY OF FRACTURE: None listed. MEDICATIONS: None listed. MM/XR DEXA appendicular skeleton IMPRESSION: 1. DIAGNOSIS: Normal bone density based on the lowest T-score value of 0.4 in the femoral neck applying World Health Organization criteria. 2. 10-YEAR FRACTURE RISK PREDICTION, FRAX: According to the guidelines, FRAX calculation should only be performed on patients in the osteopenia bone density category. Therefore, FRAX was not performed on this patient. 3. Treatment Recommendations: NOF guidelines recommend consideration for treatment in postmenopausal women and men age 50 and older presenting with the following: -A hip or vertebral (clinical or morphometric) fracture. -T-score less than or equal to -2.5 at the femoral neck or spine after appropriate evaluation to exclude secondary causes. -Low bone mass at the hip or spine and a 10-year fracture probability by FRAX of greater than or equal to 3% for hip fracture or greater than or equal to 20% for major osteoporotic fracture based on the [place] adapted WHO algorithm. 4. Other Recommendations: All treatment decisions require clinical judgment and consideration of individual patient factors, including patient preferences, comorbidities, previous drug use, risk factors not captured in the FRAX model (e.g. frailty, falls, vitamin D deficiency, increased bone turnover, interval significant decline in bone density) and possible under or overestimation of fracture risk by FRAX. FUTURE SCAN RECOMMENDATION: People with diagnosed cases of osteoporosis or at high risk for fracture should have regular bone mineral density tests. For patients eligible for Medicare, routine testing is allowed once every 2 years. The testing frequency can be increased to one year for patients who have rapidly progressing disease, those who are receiving or discontinuing medical therapy to restore bone mass, or have additional risk factors.
--- NOTE | ~2023-11-24 | MM_ITS ---
EXAMINATION: MM SCREENING DIGITAL BREAST TOMOSYNTHESIS, BILATERAL CLINICAL INFORMATION: Screening. Asymptomatic. The patient is status post benign excisional at the lower inner quadrant of the right breast. COMPARISON: Mammography: This study is compared with prior exams dating back to 2019. TECHNIQUE: Digital breast tomosynthesis is performed in both the craniocaudal and mediolateral oblique views along with computer-aided detection (CAD). Synthesized 2D images are generated from the tomosynthesis. FINDINGS: There are scattered areas of fibroglandular density (ACR BI-RADS breast composition Category b). There are no significant masses, abnormal calcifications, or other abnormalities. There are few, bilateral, benign calcifications in each breast. MM/MM tomosynthesis screening BI IMPRESSION: No mammographic evidence of malignancy. ASSESSMENT: BI-RADS BI-RADS 1 - Negative RECOMMENDATION: Routine annual mammography screening. 1 year F/U This examination should not preclude the clinical evaluation of a suspicious palpable abnormality. This patient's information was entered into a reminder system with a target due date for their next mammogram.
== END 2023-11-24 07:45 | disposition home or self-care (01) ==
LOC: HO.MAMMO 07:44
PROVIDERS: PCP Internal Medicine; Visit Provider Internal Medicine
DX: Z12.31 Encounter for screening mammogram for malignant neoplasm of breast (principal); Z13.820 Encounter for screening for osteoporosis; Z78.0 Asymptomatic menopausal state; M81.0 Age-related osteoporosis without current pathological fracture; E21.3 Hyperparathyroidism, unspecified
CPT/HCPCS: 77063; 77067; 77081

== ENCOUNTER → 2023-11-24 08:15 | Outpatient (BNV) | payer OTHER, SELFPAY | PROVIDERS: PCP Internal Medicine; Visit Provider Radiology Diagnostic Radiology | DX: Z12.31 Encounter for screening mammogram for malignant neoplasm of breast (principal) | CPT/HCPCS: 77063; 77067 ==

== ENCOUNTER 2023-12-14 10:25 | Outpatient (REF) | payer OTHER, SELFPAY ==
[2023-12-14 11:07] LABS: Hematocrit 47.6 % (37.0-47.0); Hemoglobin 15.2 g/dl (12.0-16.0); Mean Corpuscular HGB Conc 31.9 g/dl (31.0-35.0); Mean Corpuscular Hemoglobin 26.1 pg (27.0-33.0); Mean Corpuscular Volume 81.6 fL (80.0-98.0); Mean Platelet Volume 11.7 fL (9.4-12.3); Platelet Count 207 X10*3/uL (160-400); Red Blood Count 5.83 X10*6/uL (4.20-5.50); Red Cell Distribution Width 14.6 % (11.0-16.0); White Blood Count 7.7 X10*3/uL (4.8-10.8)
[2023-12-14 11:42] LABS: Anion Gap 13 (12-20); Blood Urea Nitrogen 42 mg/dL (9-16); Calcium 10.6 mg/dL (8.4-10.2); Carbon Dioxide 22 mmol/L (22-29); Chloride 108 mmol/L (96-108); Estimated Glomerular Filt Rate 22; Potassium 4.5 mmol/L (3.3-5.1); Sodium 138 mmol/L (135-145)
[2023-12-14 11:55] LABS: Parathyroid Hormone Intact 541.9 pg/mL (8.7-77.1)
== END 2023-12-14 10:26 | disposition home or self-care (01) ==
LOC: HO.LAB 10:25
PROVIDERS: PCP Internal Medicine; Visit Provider Internal Medicine Hypertension Specialist
DX: N18.4 Chronic kidney disease, stage 4 (severe) (principal)
CPT/HCPCS: 36415; 80051; 82310; 82565; 83970; 84520; 85027

== ENCOUNTER 2023-12-18 12:05 | Outpatient (AMB) | payer OTHER, SELFPAY ==
[2023-12-18 12:09] VITALS: BP 158/90; PULSE 70; O2SAT 97; BMI 33.4
--- NOTE | 2023-12-18 12:09 | HO.NEPHOV_ITS ---
HPI HPI Comments History of Present Illness Details Jaclyn is a middle-aged woman with a history of longstanding diabetes mellitus complicated by CKD. She has stage IV CKD. Serum creatinine has been stable for the last several months. She is here for regular follow-up. In the past she was on BELINDA-inhibitor and alert hyperkalemia. This was discontinued. She wishes to amlodipine and she is able to tolerate this. She is currently onlosartan 50 mg daily. She has history of recurrent hyperkalemia. 12/18/2023 Overall she is feeling fine. 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 pylori infection Anxiety and depression Acute angle-closure glaucoma CVA (cerebral vascular accident) GERD (gastroesophageal reflux disease) Hypertension Coronary artery disease Hypercholesterolemia Obesity (BMI 30-39.9) Type 2 diabetes mellitus with hyperglycemia Surgical History History of surgery (03/21/23) Hx of excision of mass History of axillary surgery History of axillary surgery (08/21/20) History of esophagogastroduodenoscopy (EGD) History of angioplasty History of cardiac catheterization (~03/30/16) S/P LILY-BSO History of endometrial ablation Amputation of right index finger History of tubal ligation Family History Mother Type 2 diabetes mellitus Hypertension Maternal Grandmother Myocardial infarction Social History Household Members: None Housing: Apartment Are you a primary home care and home health aides teacher to a significant other at home: No Do you presently have visiting nurse or other home services: No Alcohol intake: never Comment: medicated, see MAR Patient Tobacco Use Status: Former Tobacco user Quit Date: 2017 Tobacco use type: Cigarette e-Cigarette/Vaping Use: Never Used Second Hand Smoke Exposure: No Substance Use Type: Marijuana service: No Current occupational status: unemployed Cognitive needs: No Hearing needs: No Vision needs: Yes Vital Signs 12/18/23 12:09 Height 5 ft 6 in Weight 207 lb 3 oz BMI 33.4 BP 158/90 H Blood Pressure Location Rt brachial Position Sitting Pulse 70 Pulse Source Pulse Oximeter Pulse Oximetry (%) 97 Oxygen Delivery Method Room Air Physical Exam Vital Signs: Last Vital Signs Pulse 70 12/18/23 12:09 BP 158/90 H 12/18/23 12:09 Pulse Ox 97 12/18/23 12:09 Oxygen Delivery Method Room Air 12/18/23 12:09 BMI result Body Mass Index 33.4 Const General: comfortable Nutritional Appearance: well nourished Orientation/consciousness: patient oriented x3 HEENT Head: No normal to inspection Mouth: moist mucous membranes Neck Neck: Yes supple and Yes no JVD Resp Auscultation: clear to auscultation bilaterally, no rales and rub present Cardio Jugular venous distension: no JVD Palpation: no palpable S3 and no palpable S4 Heart sounds: no rubs GI Palpation (GI): Soft to palpation and nontender Percussion: No Fluid wave present General: Yes no CVA tenderness Back/Spine/Pelvis Back: no CVA tenderness Skin General skin exam: no rashes or lesions noted Neuro General: patient oriented x3 Extrem General: Yes no pedal edema and No clubbing Assessment & Plan Assessment & Plan (1) Hyperparathyroidism: Code(s): E21.3 - Hyperparathyroidism, unspecified (2) Chronic kidney disease, stage 4 (severe): Code(s): N18.4 - Chronic kidney disease, stage 4 (severe) (3) Essential hypertension: Code(s): I10 - Essential (primary) hypertension (4) Diabetic nephropathy associated with type 2 diabetes mellitus: Code(s): E11.21 - Type 2 diabetes mellitus with diabetic nephropathy Plan Jaclyn has stage IV CKD due to underlying diabetic nephropathy. Renal function has marginally improved Goal is to slow the progression of renal disease. Continue to avoid nephrotoxic agents including NSAIDs. Encouraged her to stand low-sodium diet. Hemoglobin A1c should be maintained less than 7%. Recent A1c was 7.8%. Blood pressure to be maintained less than 130/80. We discussed importance of weight loss as well. She has no evidence of anemia. Hemoglobin was 14.5. Recurrent hypercalcemia. Intact PTH has been progressively increasing. She probably has primary hyperparathyroidism. We will check parathyroid scan Add cinacalcet 30 mg q.d. until results of scan As for the hyperkalemia increase her to stay on low-potassium diet. Unable to increase the dose of losartan due to hyperkalemia. Recent potassium was normal refer her for preemptive renal transplant evaluation. Orders: Orders NM parathyroid Today E21.3 - Hyperparathyroidism, unspecified, N18.4 - Chronic kidney disease, stage 4 (severe) Parathyroid Hormone Intact 2 Months E21.3 - Hyperparathyroidism, unspecified, N18.4 - Chronic kidney disease, stage 4 (severe) Basic Metabolic Panel 2 Months E21.3 - Hyperparathyroidism, unspecified, N18.4 - Chronic kidney disease, stage 4 (severe) Medications: New cinacalcet (Sensipar) 30 mg PO DAILY 30 tabs 2RF Coding Level of Care Code Est Pt Level 4 (58469) Diagnoses Hyperparathyroidism E21.3 Chronic kidney disease, stage 4 (severe) N18.4 Essential hypertension I10 Diabetic nephropathy associated with type 2 diabetes mellitus E11.21 Results Reviewed Nephrology Results: Hgb 15.2 g/dl (12.0-16.0) 12/14/23 WBC 7.7 X10*3/uL (4.8-10.8) 12/14/23 Plt Count 207 X10*3/uL (160-400) 12/14/23 Sodium 138 mmol/L (135-145) 12/14/23 Potassium 4.5 mmol/L (3.3-5.1) 12/14/23 Chloride 108 mmol/L (96-108) 12/14/23 Carbon Dioxide 22 mmol/L (22-29) 12/14/23 BUN 42 mg/dL (9-16) H 12/14/23 Creatinine 2.33 mg/dL (0.5-1.4) H 12/14/23 Calcium 10.6 mg/dL (8.4-10.2) H 12/14/23 PTH Intact 541.9 pg/mL (8.7-77.1) H 12/14/23
== END 2023-12-18 16:49 | disposition home or self-care (01) ==
PROVIDERS: PCP Internal Medicine; Visit Provider Internal Medicine Hypertension Specialist
DX: I12.9 Hypertensive chronic kidney disease with stage 1 through stage 4 chronic kidney disease, or unspecified chronic kidney disease (principal); E11.22 Type 2 diabetes mellitus with diabetic chronic kidney disease; N18.4 Chronic kidney disease, stage 4 (severe); E21.3 Hyperparathyroidism, unspecified
CPT/HCPCS: 99214

== ENCOUNTER → 2023-12-18 12:05 | Outpatient (BNVA) | payer OTHER, SELFPAY | PROVIDERS: PCP Internal Medicine; Visit Provider Internal Medicine Hypertension Specialist | DX: E11.22 Type 2 diabetes mellitus with diabetic chronic kidney disease (principal); I12.9 Hypertensive chronic kidney disease with stage 1 through stage 4 chronic kidney disease, or unspecified chronic kidney disease; N18.4 Chronic kidney disease, stage 4 (severe); E11.21 Type 2 diabetes mellitus with diabetic nephropathy; E21.3 Hyperparathyroidism, unspecified | CPT/HCPCS: 99212 ==

== ENCOUNTER → 2024-01-17 07:35 | Outpatient (REF) | payer OTHER, SELFPAY ==
--- NOTE | ~2024-01-17 | NM_ITS ---
EXAMINATION: NM PARATHYROID SCAN CLINICAL INFORMATION: Hyperparathyroidism. COMPARISON: No previous parathyroid or thyroid imaging studies are available for comparison. TECHNIQUE: A double radionuclide study of the thyroid bed region and upper chest in multiple projections was performed 4 hours after the oral administration of 970 microcuries I-123 sodium iodide and immediately following the intravenous administration of 30 mCi Tc-99m sestamibi. Repeat imaging was performed 2 hours later. The iodide images were electronically subtracted from the sestamibi images using different weighting factors. FINDINGS: There is homogeneous uptake of radioiodine throughout both lobes. The thyroid gland appears to be normal in size and shape. There are no focal areas of increased or diminished uptake. Technetium 99m sestamibi images demonstrate homogeneous thyroid activity. There are no focal areas of increased or decreased Technetium 99m sestamibi activity. Computer-generated digital subtraction images show a subtle focus of sestamibi excess lateral to the junction of the mid and inferior aspects of the left thyroid lobe. This is suggested only on the anterior view obtained at 20 minutes post sestamibi injection. No other foci of abnormal sestamibi activity are suggested. NM/NM parathyroid IMPRESSION: An equivocal focus of sestamibi excess is suggested lateral to the mid to inferior aspect of the left thyroid lobe and this is suspicious for a parathyroid adenoma at this site. No other abnormality suspicious for parathyroid lesions are visualized. There is homogeneous uptake of radioiodine in the thyroid gland which is also normal in size and shape.
== END ==
LOC: HO.NUCMED 07:35
PROVIDERS: PCP Internal Medicine; Visit Provider Internal Medicine Hypertension Specialist
DX: E21.3 Hyperparathyroidism, unspecified (principal); N18.4 Chronic kidney disease, stage 4 (severe)
CPT/HCPCS: 78070; A9500; A9516

== ENCOUNTER 2024-02-05 10:42 | Outpatient (AMB) | payer OTHER, SELFPAY ==
[2024-02-05 10:43] VITALS: BP 130/80; PULSE 65; O2SAT 96; BMI 33.6
--- NOTE | 2024-02-05 10:43 | MHC.PC.OV ---
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 Patient's mammogram is up-to-date November 2023 bone density November 2023. Review of the notes had nuclear medicine parathyroid scan revealing equivocal suspicious for parathyroid adenoma patient did see Nephrology in December 2023 for chronic kidney disease stage 4 diabetic nephropathy advised control diabetes blood pressure and avoid NSAIDs. 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 PAtient was told legally blind Left eye [facility] Medical History (Updated 02/05/24 @ 12:15 by Alfredo Sanders MD) Skin tag Atherosclerotic cardiovascular disease Calcific tendinitis of right shoulder Adhesive capsulitis of right shoulder Back pain Upper respiratory infection Arm pain Dizziness Type 2 diabetes mellitus with unspecified complications Dyspnea on exertion SOB (shortness of breath) Gastroparesis Headache On anticoagulant therapy Hidradenitis suppurativa Pulmonary embolism Type 2 diabetes mellitus with chronic kidney disease Precordial chest pain Vitamin D deficiency HTN (hypertension) On beta jacqueline at home Axillary hidradenitis suppurativa Proliferative diabetic retinopathy associated with type 2 diabetes mellitus Diabetic polyneuropathy associated with type 2 diabetes mellitus Diabetic nephropathy associated with type 2 diabetes mellitus 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 pylori infection Anxiety and depression Acute angle-closure glaucoma CVA (cerebral vascular accident) GERD (gastroesophageal reflux disease) Hypertension Coronary artery disease Hypercholesterolemia Obesity (BMI 30-39.9) Type 2 diabetes mellitus with hyperglycemia Surgical History History of surgery (03/21/23) Hx of excision of mass History of axillary surgery History of axillary surgery (08/21/20) History of esophagogastroduodenoscopy (EGD) History of angioplasty History of cardiac catheterization (~03/30/16) S/P LILY-BSO History of endometrial ablation Amputation of right index finger History of tubal ligation Family History Mother Type 2 diabetes mellitus Hypertension Maternal Grandmother Myocardial infarction Social History Household Members: None Housing: Apartment Are you a primary critical care nurse practitioner to a significant other at home: No Do you presently have visiting nurse or other home services: No Alcohol intake: never Comment: medicated, see MAR Patient Tobacco Use Status: Former Tobacco user Quit Date: 2017 Tobacco use type: Cigarette e-Cigarette/Vaping Use: Never Used Second Hand Smoke Exposure: No Substance Use Type: Marijuana service: No Current occupational status: unemployed Cognitive needs: No Hearing needs: Yes (partially deaf ) Vision needs: Yes Questionnaire PHQ-9 Over the last 2 weeks, how often have you been bothered by any of the following problems? 1. Little interest or pleasure in doing things: several days 2. Feeling down, depressed, or hopeless: several days 3. Trouble falling or staying asleep, or sleeping too much: several days 4. Feeling tired or having little energy: several days 5. Poor appetite or overeating: several days 6. Feeling bad about yourself - or that you are a failure or have let yourself or your family down: not at all 7. Trouble concentrating on things, such as reading the newspaper or watching television: not at all 8. Moving or speaking so slowly that other people could have noticed. Or the opposite - being so fidgety or restless that you have been moving around a lot more than usual: not at all 9. Thoughts that you would be better off or of hurting yourself in some way: not at all Total score: 5 Depression Screening Interpretation: Positive Depression Screening Done: Yes 75989 - PHQ-9 Billing: Yes Source: Developed by Drs. Tushar Villar, Dinorah Ariza, Kobi Carver and colleagues, with an educational neto from [employer]. Thrive Questionnaire Date Thrive assessed: 02/05/24 I am a: Patient What is your living situation today?: I have a steady place to live Within the past 12 months, did the food you bought not last and you didn't have the money to get more?: Never true Within the past 12 months, did you worry whether your food would run out before you got money to buy more?: Never true Do you have trouble paying for medicines?: No Do you have trouble getting transportation to medical appointments?: No Do you have trouble paying your heating and electricity bill?: No Do you have trouble taking care of your child, family member or friend?: No Do you have trouble with day-to-day activities such as bathing, preparing meals, shopping, managing finances, etc.?: No Are you currently unemployed and looking for a job?: No Are you interested in more education?: No Please select the resources that you would like help with: None Currently or been in a relationship where the following occur: no concerns reported THRIVE Score: 0 AUDIT C Alcohol Use Questionnaire (AUDIT-C) 1. How often do you have a drink containing alcohol?: Never 3. How often do you have six or more drinks on one occasion?: Never Total Score: 0 BRAXTON-7 AMB Questionnaire BRAXTON-7 Date BRAXTON - 7 assessed: 02/05/24 Source: Developed by Drs. Tushar Villar, Dinorah Ariza, Kobi Carver and colleagues, with an educational neto from [employer]. Physical exam (Primary Care) Vital Signs: Last Vital Signs Pulse 65 02/05/24 10:43 BP 130/80 02/05/24 10:43 Pulse Ox 96 02/05/24 10:43 Oxygen Delivery Method Room Air 02/05/24 10:43 BMI result Body Mass Index 33.6 Tobacco/Smoking Status: Tobacco use Status Tobacco use date assessed 02/05/24 02/05/24 10:44 Patient Tobacco Use Status Former Tobacco user 02/05/24 10:44 Tobacco use type Cigarette 02/05/24 10:44 e-Cigarette/Vaping Use Never Used 02/05/24 10:44 PHQ-9: PHQ-9 Score PHQ-9: Total score 5 02/05/24 12:03 Depression Screening Interpretation: Positive Thrive Assessment: Date of Thrive Assessment Date Thrive assessed 02/05/24 02/05/24 10:44 Currently or been in a relationship where the following occur: no concerns reported Const General: alert; No acute distress Eyes Conjunctivae: conjunctivae normal Resp Auscultation: clear to auscultation bilaterally Cardio Rate: regular rate Rhythm: regular rhythm GI Inspection: Yes normal to inspection Extrem General: Yes normal to inspection and No edema Assessment and Plan Assessment & Plan (1) Type 2 diabetes mellitus with hyperglycemia: Comment: IDDM, Dr. 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 Hemoglobin A1c goal of less than 6.5. Patient on Farxiga 10 mg once a day Toujeo 64 units once a day (2) Obesity (BMI 30-39.9): Code(s): E66.9 - Obesity, unspecified Plan: Diet and exercise (3) Coronary artery disease: Comment: stent placement March 2016, echo March 2019 normal LV function, impaired relaxation Chest pains on and off-not like when she had the [place]. Sees Dr May. Intermediate risk for surgery. Code(s): I25.10 - Atherosclerotic heart disease of [place] coronary artery without angina pectoris Qualifiers: Associated angina: without angina Coronary Disease-Associated Artery/Lesion type: [place] artery [place] vs. transplanted heart: [place] heart Qualified Code(s): I25.10 - Atherosclerotic heart disease of [place] coronary artery without angina pectoris Plan: Control the cholesterol, weight, blood pressure, diabetes presently on aspirin 81 mg once a day (4) GERD (gastroesophageal reflux disease): Code(s): K21.9 - Gastro-esophageal reflux disease without esophagitis Qualifiers: Esophagitis presence: without esophagitis Qualified Code(s): K21.9 - Gastro-esophageal reflux disease without esophagitis Plan: Avoid the foods that causes that usually spicy foods, tomato products, juices, coffee, soda and foods that your sensitive to. After eating do not lie down, allow 3-4 hours before in lie down. And keep the head of bed above 30 degrees to avoid the acid from going up. (5) Hyperlipidemia, unspecified: Code(s): E78.5 - Hyperlipidemia, unspecified Qualifiers: Hyperlipidemia type: moderate mixed hyperlipidemia not requiring statin therapy Qualified Code(s): E78.2 - Mixed hyperlipidemia Plan: Avoid fried foods, chicken skin, eggs, butter margarine, pastries and meat. Be it pork or beef they have a lot of cholesterol LDL goal of less than 70 and triglyceride of less than 150 presently on rosuvastatin 20 mg once a day will need retesting (6) Essential hypertension: Code(s): I10 - Essential (primary) hypertension Plan: Continue with blood pressure medication. Decrease salt intake and exercise metoprolol 200 mg once a day losartan 50 mg once a day amlodipine 10 mg once a day (7) Chronic kidney disease, stage 4 (severe): Code(s): N18.4 - Chronic kidney disease, stage 4 (severe) Plan: Patient is being followed up by Nephrology and preemptive renal evaluation for replacement therapy (8) Generalized anxiety disorder: Code(s): F41.1 - Generalized anxiety disorder Plan: Continue with present medication (9) Hyperparathyroidism: Code(s): E21.3 - Hyperparathyroidism, unspecified Plan: Patient is being worked up and had a nuclear medicine done confirming adenoma (10) Pulmonary embolism: Code(s): I26.99 - Other pulmonary embolism without acute cor pulmonale Plan: Concern about anticoagulation with the patient. Anticoagulation stopped as per patient. 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 Vitamin B12 and Folate Today E11.65 - Type 2 diabetes mellitus with hyperglycemia, Z79.4 - retirement (current) use of insulin Hemoglobin A1c Today E11.65 - Type 2 diabetes mellitus with hyperglycemia, Z79.4 - 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 T Spot TB Today E11.65 - Type 2 diabetes mellitus with hyperglycemia, Z79.4 - retirement (current) use of insulin Lipid Panel Today E11.65 - Type 2 diabetes mellitus with hyperglycemia, E78.00 - Pure hypercholesterolemia, unspecified, Z79.4 - retirement (current) use of insulin Vitamin D 25-OH Total Today E11.65 - Type 2 diabetes mellitus with hyperglycemia, Z79.4 - retirement (current) use of insulin Referrals Endocrinology Referral E21.3 - Hyperparathyroidism, unspecified Dermatology Referral L91.8 - Other hypertrophic disorders of the skin Gastroenterology Referral Z12.11 - Encounter for screening for malignant neoplasm of colon Medications: New hydrocortisone-acetic acid 1-2 % apply to (cotton) wick; replace wick every 24 hours 4 drps otic (ears) TID 10 mL 0RF .65 - Type 2 diabetes mellitus with hyperglycemia, Z79.4 - retirement (current) use of insulin Coding Level of Care Code Est Pt Level 4 (59363) Diagnoses Type 2 diabetes mellitus with hyperglycemia, with long-term current use of insulin E11.65; Z79.4 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 transplanted heart: [place] heart Gastroesophageal reflux disease without esophagitis K21.9 Esophagitis presence: without esophagitis Moderate mixed hyperlipidemia not requiring statin therapy E78.2 Hyperlipidemia type: moderate mixed hyperlipidemia not requiring statin therapy Essential hypertension I10 Chronic kidney disease, stage 4 (severe) N18.4 Generalized anxiety disorder F41.1 Hyperparathyroidism E21.3 Pulmonary embolism I26.99 Colon cancer screening Z12.11 Allergic rhinitis J30.9 Skin tag L91.8
== END 2024-02-05 12:18 | disposition home or self-care (01) ==
PROVIDERS: PCP Internal Medicine; Visit Provider Internal Medicine
DX: E11.65 Type 2 diabetes mellitus with hyperglycemia (principal); Z79.4 Long term (current) use of insulin; N18.4 Chronic kidney disease, stage 4 (severe); I26.99 Other pulmonary embolism without acute cor pulmonale; E21.3 Hyperparathyroidism, unspecified; E66.9 Obesity, unspecified; I25.10 Atherosclerotic heart disease of native coronary artery without angina pectoris; K21.9 Gastro-esophageal reflux disease without esophagitis; E78.2 Mixed hyperlipidemia; I12.9 Hypertensive chronic kidney disease with stage 1 through stage 4 chronic kidney disease, or unspecified chronic kidney disease; F41.1 Generalized anxiety disorder; Z12.11 Encounter for screening for malignant neoplasm of colon
CPT/HCPCS: 99214

== ENCOUNTER 2024-02-19 13:56 | Outpatient (REF) | payer OTHER, SELFPAY ==
[2024-02-19 16:49] LABS: Parathyroid Hormone Intact 666.2 pg/mL (8.7-77.1)
[2024-02-19 16:50] LABS: Anion Gap 14 (12-20); Blood Urea Nitrogen 44 mg/dL (9-16); Calcium 10.2 mg/dL (8.4-10.2); Carbon Dioxide 21 mmol/L (22-29); Chloride 111 mmol/L (96-108); Estimated Glomerular Filt Rate 19; Glucose Random 90 mg/dL (60-115); Potassium 4.6 mmol/L (3.3-5.1); Sodium 141 mmol/L (135-145)
== END 2024-02-19 13:57 | disposition home or self-care (01) ==
LOC: HO.HHCL 13:56
PROVIDERS: Visit Provider Internal Medicine Hypertension Specialist
DX: E21.3 Hyperparathyroidism, unspecified (principal); N18.4 Chronic kidney disease, stage 4 (severe)
CPT/HCPCS: 36415; 80048; 83970

== ENCOUNTER → 2024-02-20 11:17 | Outpatient (BNVA) | payer OTHER, SELFPAY | PROVIDERS: PCP Internal Medicine; Visit Provider Internal Medicine Hypertension Specialist | DX: Z01.818 Encounter for other preprocedural examination (principal); R10.31 Right lower quadrant pain; K59.04 Chronic idiopathic constipation; K21.9 Gastro-esophageal reflux disease without esophagitis; I26.99 Other pulmonary embolism without acute cor pulmonale; I12.9 Hypertensive chronic kidney disease with stage 1 through stage 4 chronic kidney disease, or unspecified chronic kidney disease; E11.22 Type 2 diabetes mellitus with diabetic chronic kidney disease; N18.4 Chronic kidney disease, stage 4 (severe); E11.21 Type 2 diabetes mellitus with diabetic nephropathy; E21.3 Hyperparathyroidism, unspecified | CPT/HCPCS: 99212 ==

== ENCOUNTER → 2024-02-20 11:37 | Outpatient (AMB) | payer OTHER, SELFPAY ==
[2024-02-20 11:18] VITALS: BP 158/74; PULSE 69; O2SAT 99; BMI 33.4
--- NOTE | 2024-02-20 11:18 | HO.NEPHOV_ITS ---
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 She has stage IV CKD. Serum creatinine has been stable for the last several months. She is here for regular follow-up. In the past she was on BELINDA-inhibitor and alert hyperkalemia. This was discontinued. She wishes to amlodipine and she is able to tolerate this. She is currently onlosartan 50 mg daily. She has history of recurrent hyperkalemia. 12/18/2023 Overall she is feeling fine. No specific complaints today [facility] Medical History (Updated 02/05/24 @ 12:15 by Alfredo Sanders MD) Skin tag Atherosclerotic cardiovascular disease Calcific tendinitis of right shoulder Adhesive capsulitis of right shoulder Back pain Upper respiratory infection Arm pain Dizziness Type 2 diabetes mellitus with unspecified complications Dyspnea on exertion SOB (shortness of breath) Gastroparesis Headache On anticoagulant therapy Hidradenitis suppurativa Pulmonary embolism Type 2 diabetes mellitus with chronic kidney disease Precordial chest pain Vitamin D deficiency HTN (hypertension) On beta jacqueline at home Axillary hidradenitis suppurativa Proliferative diabetic retinopathy associated with type 2 diabetes mellitus Diabetic polyneuropathy associated with type 2 diabetes mellitus Diabetic nephropathy associated with type 2 diabetes mellitus 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 pylori infection Anxiety and depression Acute angle-closure glaucoma CVA (cerebral vascular accident) GERD (gastroesophageal reflux disease) Hypertension Coronary artery disease Hypercholesterolemia Obesity (BMI 30-39.9) Type 2 diabetes mellitus with hyperglycemia Surgical History History of surgery (03/21/23) Hx of excision of mass History of axillary surgery History of axillary surgery (08/21/20) History of esophagogastroduodenoscopy (EGD) History of angioplasty History of cardiac catheterization (~03/30/16) S/P LILY-BSO History of endometrial ablation Amputation of right index finger History of tubal ligation Family History Mother Type 2 diabetes mellitus Hypertension Maternal Grandmother Myocardial infarction Social History Household Members: None Housing: Apartment Are you a primary pet care technician to a significant other at home: No Do you presently have visiting nurse or other home services: No Alcohol intake: never Comment: medicated, see MAR Patient Tobacco Use Status: Former Tobacco user Quit Date: 2017 Tobacco use type: Cigarette e-Cigarette/Vaping Use: Never Used Second Hand Smoke Exposure: No Substance Use Type: Marijuana service: No Current occupational status: unemployed Cognitive needs: No Hearing needs: Yes (partially deaf ) Vision needs: Yes Physical Exam Vital Signs: Last Vital Signs Pulse 69 02/20/24 11:18 BP 158/74 H 02/20/24 11:18 Pulse Ox 99 02/20/24 11:18 Oxygen Delivery Method Room Air 02/20/24 11:18 BMI result Body Mass Index 33.4 Const General: comfortable Nutritional Appearance: well nourished Orientation/consciousness: patient oriented x3 HEENT Head: No normal to inspection Mouth: moist mucous membranes Neck Neck: Yes supple and Yes no JVD Resp Auscultation: clear to auscultation bilaterally, no rales and rub present Cardio Jugular venous distension: no JVD Palpation: no palpable S3 and no palpable S4 Heart sounds: no rubs GI Palpation (GI): Soft to palpation and nontender Percussion: No Fluid wave present General: Yes no CVA tenderness Back/Spine/Pelvis Back: no CVA tenderness Skin General skin exam: no rashes or lesions noted Neuro General: patient oriented x3 Extrem General: Yes no pedal edema and No clubbing Results Reviewed Nephrology Results: Hgb 15.2 g/dl (12.0-16.0) 12/14/23 WBC 7.7 X10*3/uL (4.8-10.8) 12/14/23 Plt Count 207 X10*3/uL (160-400) 12/14/23 Sodium 141 mmol/L (135-145) 02/19/24 Potassium 4.6 mmol/L (3.3-5.1) 02/19/24 Chloride 111 mmol/L (96-108) H 02/19/24 Carbon Dioxide 21 mmol/L (22-29) L 02/19/24 BUN 44 mg/dL (9-16) H 02/19/24 Creatinine 2.63 mg/dL (0.5-1.4) H 02/19/24 Calcium 10.2 mg/dL (8.4-10.2) 02/19/24 PTH Intact 666.2 pg/mL (8.7-77.1) H 02/19/24 Assessment & Plan Assessment & Plan (1) Hyperparathyroidism: Code(s): E21.3 - Hyperparathyroidism, unspecified Category: Medical (2) Chronic kidney disease, stage 4 (severe): Code(s): N18.4 - Chronic kidney disease, stage 4 (severe) Category: Medical (3) Essential hypertension: Code(s): I10 - Essential (primary) hypertension Category: Medical (4) Diabetic nephropathy associated with type 2 diabetes mellitus: Code(s): E11.21 - Type 2 diabetes mellitus with diabetic nephropathy Category: Medical Plan Jaclyn has stage IV CKD due to underlying diabetic nephropathy. Renal function has marginally improved Goal is to slow the progression of renal disease. Continue to avoid nephrotoxic agents including NSAIDs. Encouraged her to stand low-sodium diet. Hemoglobin A1c should be maintained less than 7%. Recent A1c was 7.8%. Blood pressure to be maintained less than 130/80. We discussed importance of weight loss as well. She has no evidence of anemia. Hemoglobin was 14.5. Recurrent hypercalcemia. Intact PTH has been progressively increasing. She probably has primary hyperparathyroidism. parathyroid scan shows adenoma Refer to surgeon for possible parathyroidectomy Add cinacalcet 30 mg q.d. until results of scan As for the hyperkalemia increase her to stay on low-potassium diet. Unable to increase the dose of losartan due to hyperkalemia. Recent potassium was normal refer her for preemptive renal transplant evaluation. Orders: Referrals General Surgery Referral E21.3 - Hyperparathyroidism, unspecified Medications: New cinacalcet (Sensipar) 30 mg PO DAILY 90 tabs 1RF Coding Level of Care Code Est Pt Level 4 (60666) Diagnoses Hyperparathyroidism E21.3 Chronic kidney disease, stage 4 (severe) N18.4 Essential hypertension I10 Diabetic nephropathy associated with type 2 diabetes mellitus E11.21
== END | disposition home or self-care (01) ==
LOC: HO.HKA 11:17
PROVIDERS: PCP Internal Medicine; Visit Provider Internal Medicine Hypertension Specialist
DX: E21.3 Hyperparathyroidism, unspecified (principal); I12.9 Hypertensive chronic kidney disease with stage 1 through stage 4 chronic kidney disease, or unspecified chronic kidney disease; N18.4 Chronic kidney disease, stage 4 (severe); E11.21 Type 2 diabetes mellitus with diabetic nephropathy
CPT/HCPCS: 99214

== ENCOUNTER 2024-02-20 13:23 | Outpatient (AMB) | payer OTHER, SELFPAY ==
--- NOTE | 2024-02-20 13:30 | MHC.OFFVIS ---
Vital Signs 02/20/24 13:33 Height 5 ft 6 in Weight 208 lb 1.862 oz BMI 33.6 BP 169/79 H Blood Pressure Location Lt brachial Position Sitting Pulse 67 Intake Visit Reasons: follow up adb pain Intake Note: Phoebe presents to in office follow up of abdominal pain. CC: Patient c/o constipation, and sharp epigastric pain. She states she has to go to the bathroom multiple times in order to completely empty her bowels. Denies other GI symptoms today. 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 her energy and she had to lie down and go to bed.? If happen right after she ate a 2nd ham sandwich; but she is not exactly sure which ingredients? might have triggered her symptoms.? The next day the pain had resolved and has not come back.? She is quite concerned because she said it felt ?like appendicitis. ?? I think this may than bowel spasm so I will give her a prescription for dicyclomine to try this pain returns but we also discussed alarm signs and symptoms that would necessitate an ER visit.? She continues to do well moving her bowels with the senna and the Reglan is keeping moving as well and limiting her nausea and vomiting.? She is now taking it 4 times a day as directed and she is not having any adverse effects.? She continues on her omeprazole with good control of her GERD.. ROV 8 weeks. (2) Chronic idiopathic constipation: ?Code(s): K59.04 - Chronic idiopathic constipation (3) GERD (gastroesophageal reflux disease): ?Code(s): K21.9 - Gastro-esophageal reflux disease without esophagitis ?Qualifiers: ?Esophagitis presence:?without esophagitis? Qualified Code(s):?K21.9 - Gastro-esophageal reflux disease without esophagitis ? ? ? Medications: New dicyclomine 20 mg? PO TID 30 days 90 tabs 1RF ? ? Refilled metoclopramide HCl (Reglan) 5 mg? PO QIDACHS 120 tabs 6RF K31.84 - Gastroparesis ? omeprazole 20 mg? PO DAILY 90 caps 1RF ? ? Proctosol HC 2.5% (hydrocortisone) 1 appl? AL BID 28.35 grams 3RF NS K64.9 - Unspecified hemorrhoids ? sennosides (senna) 17.2 mg (2 x 8.6 mg) PO BEDTIME 30 days 60 caps 1RF constipation ? Laboratory Tests 12/14/23 02/19/24 10:40 14:07 WBC 7.7 RBC 5.83 H Hgb 15.2 Hct 47.6 H Plt Count 207 Estimated GFR 19 TODAY'S VISIT She has been having more abd cramping, CIC and N/V but since she has not seem me in over a year she is out of most of her medications. Will restart reglan, bentyl, senna and she continues on pantoproazole She has some rb on the TT but this resolves with proctosol cream She needs a colonoscopy as she has never had one, for screening and for her possible renal transplant There are no prior problems with anesthesia or sedation. Her CAD and asthma are well controlled No ID problems. There is no known family history of colon cancer or polyps. ROV 4 weeks. [facility] Medical History (Updated 02/20/24 @ 13:53 by ANNIKA Rose) Colon cancer screening Type 2 diabetes mellitus with hyperglycemia Skin tag Atherosclerotic cardiovascular disease Calcific tendinitis of right shoulder Adhesive capsulitis of right shoulder Back pain Upper respiratory infection Arm pain Dizziness Type 2 diabetes mellitus with unspecified complications Dyspnea on exertion SOB (shortness of breath) Gastroparesis Headache On anticoagulant therapy Hidradenitis suppurativa Pulmonary embolism Type 2 diabetes mellitus with chronic kidney disease Precordial chest pain Vitamin D deficiency HTN (hypertension) On beta jacqueline at home Axillary hidradenitis suppurativa Proliferative diabetic retinopathy associated with type 2 diabetes mellitus Diabetic polyneuropathy associated with type 2 diabetes mellitus Diabetic nephropathy associated with type 2 diabetes mellitus FCI (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 pylori infection Anxiety and depression Acute angle-closure glaucoma CVA (cerebral vascular accident) GERD (gastroesophageal reflux disease) Hypertension Coronary artery disease Hypercholesterolemia Obesity (BMI 30-39.9) Surgical History History of surgery (03/21/23) Hx of excision of mass History of axillary surgery History of axillary surgery (08/21/20) History of esophagogastroduodenoscopy (EGD) History of angioplasty History of cardiac catheterization (~03/30/16) S/P LILY-BSO History of endometrial ablation Amputation of right index finger History of tubal ligation Family History Mother Type 2 diabetes mellitus Hypertension Maternal Grandmother Myocardial infarction Social History Household Members: None Housing: Apartment Are you a primary customer care team coach to a significant other at home: No Do you presently have visiting nurse or other home services: No Alcohol intake: never Comment: medicated, see MAR Patient Tobacco Use Status: Former Tobacco user Quit Date: 2017 Tobacco use type: Cigarette e-Cigarette/Vaping Use: Never Used Second Hand Smoke Exposure: No Substance Use Type: Marijuana service: No Current occupational status: unemployed Cognitive needs: No Hearing needs: Yes (partially deaf ) Vision needs: Yes Review of Systems Const Denies fatigue, Denies fever(s), Denies night sweats, Denies poor appetite and Denies weight loss ENT Reports Normal hearing present, Denies dental pain, Denies dysphagia, Denies hearing loss, Denies mouth pain, Denies odynophagia, Denies throat swelling, Denies tongue swelling and Reports other (Dentition adequate) Card Reports no additional complaints Resp Reports no additional complaints GI Details: Reports abdominal pain, Denies melena, Reports bloating, Denies hematochezia, Reports constipation, Reports GI cramping, Denies dysphagia, Denies excessive flatus, Denies early satiety, Reports heartburn, Denies diarrhea, Reports nausea, Denies odynophagia, Denies vomiting and Denies hematemesis Skin/Breast Denies pruritus, Denies lesions, Denies rash and Denies jaundice Neuro Reports Normal hearing present and Denies Abnormal speech present Endo Denies fatigue Aller/Immun Denies throat swelling and Denies tongue swelling Physical Exam Vital Signs: Last Vital Signs Pulse 67 02/20/24 13:33 BP 169/79 H 02/20/24 13:33 BMI result Body Mass Index 33.6 Const General: cooperative, no acute distress, well developed and well groomed Nutritional Appearance: well nourished and obese Orientation/consciousness: oriented to person, oriented to place and oriented to time Limitations: No language barrier HEENT Head: Yes normocephalic and Yes atraumatic Eyes General: appearance normal, both eyes and all related structures Pupils: Equal, round and reactive pupils present Neck Neck: Yes normal visual inspection and Yes no lymphadenopathy Thyroid: Thyroid normal Resp Effort & Inspection: normal respiratory effort and able to speak in complete sentences Auscultation: clear to auscultation bilaterally Cardio Rate: regular rate Rhythm: regular rhythm Heart sounds: Normal, physiologic split S2 sound present Peripheral pulses: radial pulses present and posterior tibial pulses present GI Inspection: No distended, No Abdominal panniculus present and Yes obesity Palpation (GI): Soft to palpation, nontender, no guarding, not rigid and No hepatosplenomegaly present Percussion: Yes normal to percussion Auscultation: normal bowel sounds Rectal Exam - Female: deferred Skin General skin exam: no rashes or lesions noted, turgor normal, skin not dry, no jaundice, No spider nevi and no striae Rashes: no rashes Nails: normal Neuro General: oriented to person, oriented to place and oriented to time Cranial nerves: Yes Equal, round and reactive pupils present and Yes Normal hearing present Speech: No Abnormal speech present Extrem General: Yes normal to inspection, No clubbing, No cyanosis and No edema Psych Appearance: grossly normal and well kempt Mental Status: mental status grossly normal Speech and movement: Normal speech and movement present Affect: normal affect Attitude: cooperative Thought process: Normal thought process present and not confabulating Thought content: Normal thought content present Insight: Limited insight present (Psych) Judgement: Limited judgement present (Psych) Results Reviewed Results Reviewed: Laboratory Tests 12/14/23 02/19/24 10:40 14:07 WBC 7.7 RBC 5.83 H Hgb 15.2 Hct 47.6 H Plt Count 207 Estimated GFR 19 Assessment & Plan Assessment & Plan (1) Chronic idiopathic constipation: Code(s): K59.04 - Chronic idiopathic constipation Category: Medical (2) Right lower quadrant abdominal pain: Code(s): R10.31 - Right lower quadrant pain Category: Medical (3) GERD (gastroesophageal reflux disease): Code(s): K21.9 - Gastro-esophageal reflux disease without esophagitis Category: Medical Qualifiers: Esophagitis presence: without esophagitis Qualified Code(s): K21.9 - Gastro-esophageal reflux disease without esophagitis (4) Pre-op examination: Code(s): Z01.818 - Encounter for other preprocedural examination Category: Medical (5) Chronic kidney disease, stage 4 (severe): Code(s): N18.4 - Chronic kidney disease, stage 4 (severe) Category: Medical (6) Pulmonary embolism: Code(s): I26.99 - Other pulmonary embolism without acute cor pulmonale Category: Medical Plan She has been having more abd cramping, CIC and N/V but since she has not seem me in over a year she is out of most of her medications. Will restart reglan, bentyl, senna and she continues on pantoproazole She has some rb on the TT but this resolves with proctosol cream She needs a colonoscopy as she has never had one, for screening and for her possible renal transplant There are no prior problems with anesthesia or sedation. Her CAD and asthma are well controlled No ID problems. There is no known family history of colon cancer or polyps. ROV 4 weeks Orders: Orders Colonoscopy - GI Use Only Today Z01.818 - Encounter for other preprocedural examination Medications: New dicyclomine 20 mg PO QID 120 tabs 1RF 30 days sennosides (Senna Laxative) 17.2 mg (2 x 8.6 mg) PO BEDTIME 60 tabs 6RF metoclopramide HCl (Reglan) 5 mg PO QIDACHS 120 tabs 6RF sod sulf-pot chloride-mag sulf 1.479-0.188- 0.225 gram (Sutab) PO PER PKG DIR for colonoscopy prep 24 tabs 0RF Refilled omeprazole 20 mg PO DAILY 90 caps 1RF E11.22 - Type 2 diabetes mellitus with diabetic chronic kidney disease, N18.30 - Chronic kidney disease, stage 3 unspecified Coding Level of Care Code Est Pt Level 4 (11962) Diagnoses Chronic idiopathic constipation K59.04 Right lower quadrant abdominal pain R10.31 Gastroesophageal reflux disease without esophagitis K21.9 Esophagitis presence: without esophagitis Pre-op examination Z01.818 Chronic kidney disease, stage 4 (severe) N18.4 Pulmonary embolism I26.99
[2024-02-20 13:33] VITALS: BP 169/79; PULSE 67; BMI 33.6
== END 2024-02-20 13:56 | disposition home or self-care (01) ==
PROVIDERS: PCP Internal Medicine; Visit Provider Nurse Practitioner
DX: K59.04 Chronic idiopathic constipation (principal); R10.31 Right lower quadrant pain; K21.9 Gastro-esophageal reflux disease without esophagitis; Z01.818 Encounter for other preprocedural examination; N18.4 Chronic kidney disease, stage 4 (severe); I26.99 Other pulmonary embolism without acute cor pulmonale
CPT/HCPCS: 99214

== ENCOUNTER 2024-03-21 12:51 | Outpatient (REF) | payer OTHER, SELFPAY ==
--- NOTE | ~2024-03-21 | US_ITS ---
EXAMINATION: NONINVASIVE ASSESSMENT OF THE ARTERIES OF BOTH LOWER EXTREMITIES WITH PVR EXAM AND BILATERAL LOWER EXTREMITY DUPLEX Muna Guevara MD CLINICAL INFORMATION: Peripheral vascular disease TECHNIQUE: Ankle pulse volume recordings, ankle pressure measurements and ankle brachial indices were obtained of the lower extremity arterial system bilaterally in addition to duplex Doppler techniques with wave form analysis and measurement of velocities in the common femoral, profunda femoral, superficial femoral, popliteal and tibial arteries. The study was performed only at rest. COMPARISON: None FINDINGS: a) AT REST: RIGHT LE. The right ankle-brachial index is: 0.98 * >0.97-1.25 = normal - no significant arterial disease * 0.75-0.96 = mild peripheral arterial disease * 0.5-0.74 = moderate peripheral arterial disease * <0.50 = severe peripheral arterial disease 2. Right ankle pressure: normal. 3. Right ankle PVR waveform: abnormal. 4. Right direct duplex Doppler findings: Common femoral artery: 111 cm/s, Multiphasic Profunda femoris artery: 143 cm/s, Multiphasic Superficial femoral artery (proximal): 99 cm/s, Multiphasic Superficial femoral artery (mid): 258 cm/s, Multiphasic Superficial femoral artery (distal): 91 cm/s, Multiphasic Proximal Popliteal artery: 65 cm/s, Multiphasic Mid posterior tibial artery: 18 cm/s, Monophasic LEFT LE. The left ankle-brachial index is: 1.01 * >0.97-1.25 = normal - no significant arterial disease * 0.75-0.96 = mild peripheral arterial disease * 0.5-0.74 = moderate peripheral arterial disease * <0.50 = severe peripheral arterial disease 2. Left ankle pressure: normal. 3. Left ankle PVR waveform: abnormal. 4. Left direct duplex Doppler findings: Common femoral artery: 92 cm/s, Multiphasic Profunda femoris artery: 94 cm/s, Multiphasic Superficial femoral artery (proximal): 61 cm/s, monophasic Superficial femoral artery (mid): 430 cm/s, monophasic Superficial femoral artery (distal): 61 cm/s, monophasic Proximal Popliteal artery: 54 cm/s, monophasic Mid posterior tibial artery: occluded US/US arterial duplex LE BI IMPRESSION: RIGHT LEG: Mild peripheral arterial disease. LEFT LEG: Moderate- severe peripheral arterial disease.
--- NOTE | ~2024-03-21 | US_ITS ---
EXAMINATION: NONINVASIVE ASSESSMENT OF THE ARTERIES OF BOTH LOWER EXTREMITIES WITH PVR EXAM AND BILATERAL LOWER EXTREMITY DUPLEX Muna Guevara MD CLINICAL INFORMATION: Peripheral vascular disease TECHNIQUE: Ankle pulse volume recordings, ankle pressure measurements and ankle brachial indices were obtained of the lower extremity arterial system bilaterally in addition to duplex Doppler techniques with wave form analysis and measurement of velocities in the common femoral, profunda femoral, superficial femoral, popliteal and tibial arteries. The study was performed only at rest. COMPARISON: None FINDINGS: a) AT REST: RIGHT LE. The right ankle-brachial index is: 0.98 * >0.97-1.25 = normal - no significant arterial disease * 0.75-0.96 = mild peripheral arterial disease * 0.5-0.74 = moderate peripheral arterial disease * <0.50 = severe peripheral arterial disease 2. Right ankle pressure: normal. 3. Right ankle PVR waveform: abnormal. 4. Right direct duplex Doppler findings: Common femoral artery: 111 cm/s, Multiphasic Profunda femoris artery: 143 cm/s, Multiphasic Superficial femoral artery (proximal): 99 cm/s, Multiphasic Superficial femoral artery (mid): 258 cm/s, Multiphasic Superficial femoral artery (distal): 91 cm/s, Multiphasic Proximal Popliteal artery: 65 cm/s, Multiphasic Mid posterior tibial artery: 18 cm/s, Monophasic LEFT LE. The left ankle-brachial index is: 1.01 * >0.97-1.25 = normal - no significant arterial disease * 0.75-0.96 = mild peripheral arterial disease * 0.5-0.74 = moderate peripheral arterial disease * <0.50 = severe peripheral arterial disease 2. Left ankle pressure: normal. 3. Left ankle PVR waveform: abnormal. 4. Left direct duplex Doppler findings: Common femoral artery: 92 cm/s, Multiphasic Profunda femoris artery: 94 cm/s, Multiphasic Superficial femoral artery (proximal): 61 cm/s, monophasic Superficial femoral artery (mid): 430 cm/s, monophasic Superficial femoral artery (distal): 61 cm/s, monophasic Proximal Popliteal artery: 54 cm/s, monophasic Mid posterior tibial artery: occluded US/US CELESTINO complete IMPRESSION: RIGHT LEG: Mild peripheral arterial disease. LEFT LEG: Moderate- severe peripheral arterial disease.
== END 2024-03-21 12:52 | disposition home or self-care (01) ==
LOC: HO.US 12:51
PROVIDERS: PCP Internal Medicine; Visit Provider Surgery Vascular Surgery
DX: I73.9 Peripheral vascular disease, unspecified (principal)
CPT/HCPCS: 93923; 93925

== ENCOUNTER → 2024-04-02 08:48 | Outpatient (REF) | payer OTHER, SELFPAY ==
--- NOTE | 2024-04-02 08:51 | CA_ITS ---
Transthoracic Echocardiogram Patient (Last, First, Middle): Phoebe Ruelas, Gender: Female Date of : 1970 Age: 53 Procedure Date: 04/02/2024 Procedure Type: Transthoracic Echocardiogram Location: OP Height: 167.64 cm Weight: 93.44 kg BSA: 2.03 m2 Heart Rate: bpm BP: 118 / 60 mmHg Feeder Driver: Referring MD: Zander May MD Picker Box Operator: Ruel Milton MD Symptoms: I25.10 - Atherosclerotic heart disease of [place] coronary artery without... Study Quality: Adequate w Contrast ECG Rhythm: Sinus Conclusions: - 1. Moderately reduced LV ejection fraction at 35-40% with grade 2 diastolic dysfunction with underlying regional wall motion abnormality consistent with ischemic cardiomyopathy 2. Mildly dilated left atrium 3. Normal cardiac valvular Doppler 4. Normal RV systolic pressure Findings Left Ventricle Normal left ventricular cavity size. There is mildly increased left ventricular wall thickness. The left ventricular systolic function is moderately decreased. The visually estimated ejection fraction is between 35 40%. Spectral Doppler is indicative of a pseudonormal filling pattern. Elevated left atrial and left ventricular end-diastolic pressures. E/E prime ratio is >15, consistent with elevated filling pressures. Evidence suggests grade II (moderate) diastolic dysfunction. Wall Motion Rest Echo Findings The inferoseptal wall and mid inferior segment are hypokinetic. The basal inferior, apical lateral, and apical septum segments are akinetic. The apex and apical inferior segments are dyskinetic. All other scored wall segments showed normal motion. Right Ventricle Normal right ventricular cavity size and systolic function. Atria The left atrium is mildly dilated. Interatrial shunt cannot be excluded. The right atrium was not well visualized. Aortic Valve The aortic valve was not well visualized. There is no aortic valve stenosis. There is no aortic valve regurgitation. Mitral Valve Likely normal mitral valve structure and function. There is trace mitral valve regurgitation. There is no mitral valve stenosis. Pulmonic Valve The pulmonic valve was not well visualized. Tricuspid Valve Likely normal tricuspid valve structure and function. There is trace tricuspid valve regurgitation. The right ventricular systolic pressure is normal. The right ventricular systolic pressure is 28 mmHg. Normal right atrial pressure. There is no evidence of pulmonary hypertension. Great Vessels The aorta was not well visualized. The pulmonary artery was not well visualized. There is no dilatation of the ascending aorta measuring 3.00 cm. Venous The inferior vena cava is normal in size and collapses greater than 50% with inspiration. Pericardium/Pleural There is no evidence of pericardial effusion. Prior Study Comparison Changes noted compared to prior study dated: 04/07/2022. LV systolic function is reduced Measurements 2D Linear Measurements IVSd: 1.43 0.6-0.9/0.6-1.0 cm LVIDd: 4.38 3.9-5.3/4.2-5.9 cm LVIDd Index: 2.16 2.4-3.2/2.2-3.1 cm/m2 LVIDs: 2.76 2.0-3.6 cm LVPWd: 1.34 0.7-1.1 cm Ao Root: 2.90 2.1-3.5 cm LA Diam: 3.90 2.7-3.8/3.0-4.0 cm LAIDs Index: 1.92 1.5-2.3 cm/m2 LV Mass: 292.76 67-162/88-224 g LV Mass Index: 144.22 43-95/49-115 g/m2 LVOT Diam: 2.10 3.0+(-)1.3 cm 2D Systolic Function EF 4C: 35.90 >55% EF 2C: 28.20 >55% EF BiP: 33.10 >55% Mitral Valve MV Pk E: 0.89 MV PK A: 0.58 MV Decel Time: 200.00 E/A: 1.50 E'Lateral: 6.85 E'Medial: 4.13 E/E' Med: 21.60 E/E' Lat: 13.00 PHT: 59.00 MVA PHT: 3.73 Decel Colbert: 4.46 Aortic Valve AoV Pk James: 1.20 AoV Mn James: 0.72 AoV VTI: 0.31 AoV Pk Grad: 6.00 Aov Mn Grad: 3.00 MARHSAL Cont.VTI: 2.17 LVOT LVOT Pk James: 0.76 LVOT Mn James: 0.51 LVOT VTI: 0.20 LVOT Pk Grad: 2.00 LVOT Mn Grad: 1.00 LVOT Diam: 2.10 LVOT Area: 3.46 Diastolic Function MV Pk E: 0.89 MV Pk A: 0.58 E/A: 1.50 E'Medial: 4.13 E/E' Med: 21.60 E' Laterial: 6.85 E/E' Lat: 13.00 Right Ventricle TAPSE (mm): 22.00 TVS' James: 10.00 Tricuspid Valve TR Pk James: 2.52 TR Pk Grad: 25.00 RA Press: 3.00 RVSP: 28.00 Great Vessels Aorta Ao Root-2D: 2.90 2.0-3.7 cm Ao Asc: 3.00 2.1-3.4 cm Pulmonary Valve PV Pk James: 0.64 Peak PV Grad: 2.00 Updated in Other Vendor System with Status of Final Ruel Milton MD electronically signed on 04/03/2024 2:20:44 PM with status of Final
== END ==
LOC: HO.CARD 08:48
PROVIDERS: PCP Internal Medicine; Visit Provider Internal Medicine
DX: I25.10 Atherosclerotic heart disease of native coronary artery without angina pectoris (principal); I73.9 Peripheral vascular disease, unspecified
CPT/HCPCS: 93306; 99212; Q9957

== ENCOUNTER → 2024-04-02 08:51 | Outpatient (BNV) | payer OTHER, SELFPAY | PROVIDERS: PCP Internal Medicine; Visit Provider Internal Medicine Cardiovascular Disease | DX: I25.5 Ischemic cardiomyopathy (principal) | CPT/HCPCS: 93306 ==

== ENCOUNTER 2024-04-02 10:33 | Outpatient (AMB) | payer OTHER, SELFPAY ==
--- NOTE | 2024-04-02 10:34 | A.OFFVIS_ITS ---
Vital Signs 04/02/24 10:36 Height 5 ft 6 in Weight 208 lb BMI 33.6 BP 140/80 H Blood Pressure Location Rt brachial Position Sitting Intake Visit Reasons: overdue Arterial US follow up 03/12/24 Intake Note: Patient presents for arterial US. patient here for US results. Allergies cephalexin [From KEFLEX] Allergy (Intermediate, Verified 04/02/24 10:36) HIVES HPI HPI overdue Arterial US follow up 03/12/24: Details: Very pleasant 53-year-old female presents for follow-up regarding peripheral vascular disease. She had undergone endovascular intervention by us for the right lower extremity in September of 2016. The current time she is describing difficulty with her left lower extremity. She notes that she is able to ambulate about a block where she describes calf claudication type symptoms. She also reports that she has been seen by Nephrology for CKD 4. She now presents to us for vascular evaluation. [facility], [facility] Medical History (Updated 02/20/24 @ 13:53 by ANNIKA Rose) Colon cancer screening Type 2 diabetes mellitus with hyperglycemia Skin tag Atherosclerotic cardiovascular disease Calcific tendinitis of right shoulder Adhesive capsulitis of right shoulder Back pain Upper respiratory infection Arm pain Dizziness Type 2 diabetes mellitus with unspecified complications Dyspnea on exertion SOB (shortness of breath) Gastroparesis Headache On anticoagulant therapy Hidradenitis suppurativa Pulmonary embolism Type 2 diabetes mellitus with chronic kidney disease Precordial chest pain Vitamin D deficiency HTN (hypertension) On beta jacqueline at home Axillary hidradenitis suppurativa Proliferative diabetic retinopathy associated with type 2 diabetes mellitus Diabetic polyneuropathy associated with type 2 diabetes mellitus Diabetic nephropathy associated with type 2 diabetes mellitus penitentiary (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 pylori infection Anxiety and depression Acute angle-closure glaucoma CVA (cerebral vascular accident) GERD (gastroesophageal reflux disease) Hypertension Coronary artery disease Hypercholesterolemia Obesity (BMI 30-39.9) Surgical History History of surgery (03/21/23) Hx of excision of mass History of axillary surgery History of axillary surgery (08/21/20) History of esophagogastroduodenoscopy (EGD) History of angioplasty History of cardiac catheterization (~03/30/16) S/P LILY-BSO History of endometrial ablation Amputation of right index finger History of tubal ligation Family History Mother Type 2 diabetes mellitus Hypertension Maternal Grandmother Myocardial infarction Social History Household Members: None Housing: Apartment Are you a primary clinical care coordinator to a significant other at home: No Do you presently have visiting nurse or other home services: No Alcohol intake: never Comment: medicated, see MAR Patient Tobacco Use Status: Former Tobacco user Tobacco use type: Cigarette e-Cigarette/Vaping Use: Never Used Second Hand Smoke Exposure: No Substance Use Type: Marijuana service: No Current occupational status: unemployed Cognitive needs: No Hearing needs: Yes (partially deaf ) Vision needs: Yes Review of Systems Const All systems reviewed & are unremarkable except as noted in HPI and below Reports no additional complaints ENT Reports Normal hearing present Card Denies chest pain, Denies chest pain at rest, Denies chest pain with activity and Denies pedal edema Resp Denies cough GI Denies abdominal pain Musc Denies abnormal gait, Denies muscle cramps and Denies radiating pain into limb Skin/Breast Denies skin ulcer and Denies wounds Neuro Reports Normal hearing present and Denies abnormal gait Psych Reports no additional complaints Physical Exam Vital Signs: Last Vital Signs BP 140/80 H 04/02/24 10:36 BMI result Body Mass Index 33.6 Const General: cooperative, healthy appearing and comfortable Orientation/consciousness: oriented to person, oriented to place and oriented to time HEENT Head: Yes normal to inspection Neck Neck: Yes normal visual inspection Carotids: no bruits Chest Chest palpation & inspection: normal inspection of the chest Resp Effort & Inspection: normal respiratory effort and able to speak in complete sentences Auscultation: clear to auscultation bilaterally, no crackles, no rales, no rhonchi and no wheezes Cardio Other: Bilateral DP signals Rate: regular rate Rhythm: regular rhythm Heart sounds: S1 normal heart sound present and S2 normal heart sound present Bruits: no carotid bruits GI Inspection: Yes normal to inspection Skin Wounds: no wounds Hair: normal Neuro General: oriented to person, oriented to place and oriented to time Cranial nerves: Yes CN's II-XII intact bilaterally and Yes Normal hearing present Cognition (Neuro): normal cognition Motor exam (neuro): 5/5 motor strength present throughout Extrem Other: venous exam: No significant superficial varicosities or spider telangiectasias, minimal edema General: No clubbing, No cyanosis and No edema Psych Appearance: grossly normal Mental Status: mental status grossly normal Speech and movement: Normal speech and movement present Results Reviewed Results Reviewed: Noninvasive arterial testing dated 03/21/2024 demonstrates CELESTINO on the right of 0.98 on the left of 1.01 with left leg demonstrating SFA disease. Assessment & Plan Assessment & Plan (1) Peripheral vascular disease: Comment: 09/15/2016 - right SFA angioplasty Code(s): I73.9 - Peripheral vascular disease, unspecified Category: Medical Plan: Patient notes leg pain when walking distances. I have discussed the pathophysiology of peripheral vascular disease with the patient. I have also discussed risk factor modification. I have reviewed the patient's arterial testing which reveals left SFA disease. the patient would benefit from a left leg endovascular peripheral angiogram with possible angioplasty, stent, and/or atherectomy. This has been discussed in detail with the patient along with risks, benefits, and complications. This includes but is not limited to bleeding, infection, heart attack, need for emergent surgical repair, limb ischemia, blood vessel damage, bleeding, puncture, kidney injury, bruising, allergic reaction, and skin reaction. We will get input from Nephrology prior to angiogram. The patient demonstrates a clear understanding. We will schedule for the next appropriate time. Thank you for allowing us to assist in this patient's care. Coding Level of Care Code Est Pt Level 4 (24303) Diagnoses Peripheral vascular disease I73.9
[2024-04-02 10:36] VITALS: BP 140/80; BMI 33.6
== END 2024-04-02 10:57 | disposition home or self-care (01) ==
PROVIDERS: PCP Internal Medicine; Visit Provider Surgery Vascular Surgery
DX: I73.9 Peripheral vascular disease, unspecified (principal)
CPT/HCPCS: 99214

== ENCOUNTER 2024-04-04 09:45 | Outpatient (AMB) | payer OTHER, SELFPAY ==
[2024-04-04 09:51] VITALS: BP 130/70; PULSE 63; O2SAT 96; BMI 33.6
--- NOTE | 2024-04-04 09:51 | HO.NEPHOV_ITS ---
Vital Signs 04/04/24 09:51 Height 5 ft 6 in Weight 208 lb BMI 33.6 BP 130/70 Blood Pressure Location Lt brachial Position Sitting Pulse 63 Pulse Source Pulse Oximeter Pulse Oximetry (%) 96 Oxygen Delivery Method Room Air Intake Visit Reasons: Nephrology Clearance/ Conf Economic Development Coordinator Required: No Accompanied by: Self / Same As Patient Allergies cephalexin [From KEFLEX] Allergy (Intermediate, Verified 04/04/24 09:54) HIVES HPI Comments Details: Jaclyn is a middle-aged woman with a history of longstanding diabetes mellitus complicated by CKD. She has stage IV CKD. Serum creatinine has been stable for the last several months. She is here for regular follow-up. In the past she was on BELINDA-inhibitor and alert hyperkalemia. This was discontinued. She wishes to amlodipine and she is able to tolerate this. She is currently onlosartan 50 mg daily. She has history of recurrent hyperkalemia. 12/18/2023 Overall she is feeling fine. No specific complaints today 04/04/24 Has not been takin AMlodipine for 2 months Waiting for surgery [facility] Medical History (Updated 02/20/24 @ 13:53 by ANNIKA Rose) Colon cancer screening Type 2 diabetes mellitus with hyperglycemia Skin tag Atherosclerotic cardiovascular disease Calcific tendinitis of right shoulder Adhesive capsulitis of right shoulder Back pain Upper respiratory infection Arm pain Dizziness Type 2 diabetes mellitus with unspecified complications Dyspnea on exertion SOB (shortness of breath) Gastroparesis Headache On anticoagulant therapy Hidradenitis suppurativa Pulmonary embolism Type 2 diabetes mellitus with chronic kidney disease Precordial chest pain Vitamin D deficiency HTN (hypertension) On beta jacqueline at home Axillary hidradenitis suppurativa Proliferative diabetic retinopathy associated with type 2 diabetes mellitus Diabetic polyneuropathy associated with type 2 diabetes mellitus Diabetic nephropathy associated with type 2 diabetes mellitus 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 pylori infection Anxiety and depression Acute angle-closure glaucoma CVA (cerebral vascular accident) GERD (gastroesophageal reflux disease) Hypertension Coronary artery disease Hypercholesterolemia Obesity (BMI 30-39.9) Surgical History History of surgery (03/21/23) Hx of excision of mass History of axillary surgery History of axillary surgery (08/21/20) History of esophagogastroduodenoscopy (EGD) History of angioplasty History of cardiac catheterization (~03/30/16) S/P LILY-BSO History of endometrial ablation Amputation of right index finger History of tubal ligation Family History Mother Type 2 diabetes mellitus Hypertension Maternal Grandmother Myocardial infarction Social History Household Members: None Housing: Apartment Are you a primary lead care manager to a significant other at home: No Do you presently have visiting nurse or other home services: No Alcohol intake: never Comment: medicated, see MAR Patient Tobacco Use Status: Former Tobacco user Tobacco use type: Cigarette e-Cigarette/Vaping Use: Never Used Second Hand Smoke Exposure: No Substance Use Type: Marijuana service: No Current occupational status: unemployed Cognitive needs: No Hearing needs: Yes (partially deaf ) Vision needs: Yes Physical Exam Vital Signs: Last Vital Signs Pulse 63 04/04/24 09:51 Pulse Ox 96 04/04/24 09:51 Oxygen Delivery Method Room Air 04/04/24 09:51 BMI result Body Mass Index 33.6 Const General: comfortable; No acute distress Orientation/consciousness: patient oriented x3 Eyes General: appearance normal, both eyes and all related structures Visual Russ: normal visual russ by confrontation Neck Neck: Yes supple and Yes no JVD Resp Effort & Inspection: normal respiratory effort and respiratory effort not decreased Auscultation: rhonchi Cardio Palpation: no palpable S3 and no palpable S4 Heart sounds: no rubs GI Inspection: Yes normal to inspection Palpation (GI): Soft to palpation Percussion: Yes normal to percussion Auscultation: normal bowel sounds General: Yes no CVA tenderness Back/Spine/Pelvis Back: no CVA tenderness Skin General skin exam: no petechiae and no purpura Neuro General: patient oriented x3 and no focal motor deficits Extrem General: No clubbing and No edema Results Reviewed Nephrology Results: Sodium 141 mmol/L (135-145) 02/19/24 Potassium 4.6 mmol/L (3.3-5.1) 02/19/24 Chloride 111 mmol/L (96-108) H 02/19/24 Carbon Dioxide 21 mmol/L (22-29) L 02/19/24 BUN 44 mg/dL (9-16) H 02/19/24 Creatinine 2.63 mg/dL (0.5-1.4) H 02/19/24 Calcium 10.2 mg/dL (8.4-10.2) 02/19/24 PTH Intact 666.2 pg/mL (8.7-77.1) H 02/19/24 Assessment & Plan Assessment & Plan (1) Chronic kidney disease, stage 4 (severe): Code(s): N18.4 - Chronic kidney disease, stage 4 (severe) Category: Medical (2) Hyperparathyroidism: Code(s): E21.3 - Hyperparathyroidism, unspecified Category: Medical (3) Essential hypertension: Code(s): I10 - Essential (primary) hypertension Category: Medical (4) Diabetic nephropathy associated with type 2 diabetes mellitus: Code(s): E11.21 - Type 2 diabetes mellitus with diabetic nephropathy Category: Medical Plan Jaclyn has stage IV CKD due to underlying diabetic nephropathy. Renal function is at baseline Goal is to slow the progression of renal disease. Continue to avoid nephrotoxic agents including NSAIDs. Encouraged her to stand low-sodium diet. Hemoglobin A1c should be maintained less than 7%. Recent A1c was 7.8%. Blood pressure to be maintained less than 130/80. We discussed importance of weight loss as well. She has no evidence of anemia. Hemoglobin was 14.5. Recurrent hypercalcemia. Intact PTH has been progressively increasing. She probably has primary hyperparathyroidism. parathyroid scan shows adenoma Refered to surgeon for possible parathyroidectomy Add cinacalcet 30 mg q.d. until results of scan Did not fill- will resend eRx As for the hyperkalemia increase her to stay on low-potassium diet. Unable to increase the dose of losartan due to hyperkalemia. Recent potassium was normal referred her for preemptive renal transplant evaluation. - work up inprogress From a renal stand point , No absolute contraindication for surgery Orders: Orders Complete Blood Count Auto Diff Today N18.4 - Chronic kidney disease, stage 4 (severe) Basic Metabolic Panel Today N18.4 - Chronic kidney disease, stage 4 (severe) Phosphorus Today E21.3 - Hyperparathyroidism, unspecified Parathyroid Hormone Intact Today E21.3 - Hyperparathyroidism, unspecified Coding Level of Care Code Est Pt Level 4 (90210) Diagnoses Chronic kidney disease, stage 4 (severe) N18.4 Hyperparathyroidism E21.3 Essential hypertension I10 Diabetic nephropathy associated with type 2 diabetes mellitus E11.21
== END 2024-04-04 10:08 | disposition home or self-care (01) ==
LOC: HO.HKA 09:45
PROVIDERS: PCP Internal Medicine; Visit Provider Internal Medicine Hypertension Specialist
DX: I12.9 Hypertensive chronic kidney disease with stage 1 through stage 4 chronic kidney disease, or unspecified chronic kidney disease (principal); N18.4 Chronic kidney disease, stage 4 (severe); E21.3 Hyperparathyroidism, unspecified; E11.21 Type 2 diabetes mellitus with diabetic nephropathy
CPT/HCPCS: 99214

== ENCOUNTER → 2024-04-04 09:45 | Outpatient (BNVA) | payer OTHER, SELFPAY | PROVIDERS: PCP Internal Medicine; Visit Provider Internal Medicine Hypertension Specialist | DX: E11.22 Type 2 diabetes mellitus with diabetic chronic kidney disease (principal); I12.9 Hypertensive chronic kidney disease with stage 1 through stage 4 chronic kidney disease, or unspecified chronic kidney disease; N18.4 Chronic kidney disease, stage 4 (severe); E11.21 Type 2 diabetes mellitus with diabetic nephropathy; E21.3 Hyperparathyroidism, unspecified | CPT/HCPCS: 99212 ==

== ENCOUNTER 2024-04-04 10:13 | Outpatient (REF) | payer OTHER, SELFPAY ==
[2024-04-04 10:43] LABS: Basophils Absolute Auto 0.1 X10*3/uL (0.0-0.2); Basophils Percent Auto 0.6 % (0-2); Eosinophils Absolute Auto 0.1 X10*3/uL (0.0-0.4); Eosinophils Percent Auto 1.4 % (0-4); Hematocrit 46.1 % (37.0-47.0); Hemoglobin 14.8 g/dl (12.0-16.0); Imm Gran Abs Auto 0.03 X10*3/uL (0.00-0.03); Imm Gran Pct Auto 0.4 % (0.0-0.4); Lymphocytes Absolute Auto 2.2 X10*3/uL (1.2-4.9); Lymphocytes Percent Auto 28.4 % (20-40); MANUAL DIFF FLAG NO; Mean Corpuscular HGB Conc 32.1 g/dl (31.0-35.0); Mean Corpuscular Hemoglobin 26.4 pg (27.0-33.0); Mean Corpuscular Volume 82.3 fL (80.0-98.0); Mean Platelet Volume 11.8 fL (9.4-12.3); Monocytes Absolute Auto 0.6 X10*3/uL (0.1-1.2); Monocytes Percent Auto 8.2 % (2-11); Neutrophils Absolute Auto 4.8 x10*3/uL (2.0-8.3); Platelet Count 259 X10*3/uL (160-400); Red Cell Distribution Width 15.1 % (11.0-16.0); White Blood Count 7.8 X10*3/uL (4.8-10.8)
[2024-04-04 11:05] LABS: Anion Gap 11 (12-20); Blood Urea Nitrogen 43 mg/dL (9-16); Calcium 10.1 mg/dL (8.4-10.2); Carbon Dioxide 21 mmol/L (22-29); Chloride 110 mmol/L (96-108); Estimated Glomerular Filt Rate 18; Glucose Random 163 mg/dL (60-115); Phosphorus 3.5 mg/dL (2.7-4.5); Sodium 137 mmol/L (135-145)
[2024-04-04 12:26] LABS: Parathyroid Hormone Intact 489.4 pg/mL (8.7-77.1)
== END 2024-04-04 10:14 | disposition home or self-care (01) ==
LOC: HO.10HDL 10:13
PROVIDERS: Visit Provider Internal Medicine Hypertension Specialist
DX: E21.3 Hyperparathyroidism, unspecified (principal); N18.4 Chronic kidney disease, stage 4 (severe)
CPT/HCPCS: 36415; 80048; 83970; 84100; 85025

== ENCOUNTER 2024-04-09 08:33 | Outpatient (AMB) | payer OTHER, SELFPAY ==
--- NOTE | 2024-04-09 08:47 | MHC.OFFVIS ---
Vital Signs 04/09/24 09:10 Height 5 ft 6 in Weight 210 lb BMI 33.9 BP 198/87 H Blood Pressure Location Lt brachial Position Sitting Pulse 65 Intake Visit Reasons: parathyroid adenoma Intake Note: Patient referred by Dr. Hubbard (nephrology) for parathyroid adenoma. Patient c/o: no symptoms. Seeing endo in June. Parathyroid scan: 01-17-2024. Manager Data Warehousing Required: No Accompanied by: Self / Same As Patient Allergies cephalexin [From KEFLEX] Allergy (Intermediate, Verified 04/09/24 09:04) HIVES HPI Comments Details: Patient presents here for evaluation of hypercalcemia felt to be secondary to hyperparathyroidism. 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 Patient per se he has no hyper or hypo calcemia or parathyroid symptoms. Chart was reviewed and patient evaluated. Patient has a plethora of comorbidities and medical problems. [facility] Medical History Colon cancer screening Type 2 diabetes mellitus with hyperglycemia Skin tag Atherosclerotic cardiovascular disease Calcific tendinitis of right shoulder Adhesive capsulitis of right shoulder Back pain Upper respiratory infection Arm pain Dizziness Type 2 diabetes mellitus with unspecified complications Dyspnea on exertion SOB (shortness of breath) Gastroparesis Headache On anticoagulant therapy Hidradenitis suppurativa Pulmonary embolism Type 2 diabetes mellitus with chronic kidney disease Precordial chest pain Vitamin D deficiency HTN (hypertension) On beta jacqueline at home Axillary hidradenitis suppurativa Proliferative diabetic retinopathy associated with type 2 diabetes mellitus Diabetic polyneuropathy associated with type 2 diabetes mellitus Diabetic nephropathy associated with type 2 diabetes mellitus half-way (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 pylori infection Anxiety and depression Acute angle-closure glaucoma CVA (cerebral vascular accident) GERD (gastroesophageal reflux disease) Hypertension Coronary artery disease Hypercholesterolemia Obesity (BMI 30-39.9) Surgical History (Updated 04/09/24 @ 09:22 by Tylor Arceo MD) History of hysterectomy History of surgery (03/21/23) Hx of excision of mass History of axillary surgery History of axillary surgery (08/21/20) History of esophagogastroduodenoscopy (EGD) History of angioplasty History of cardiac catheterization (~03/30/16) S/P LILY-BSO History of endometrial ablation Amputation of right index finger History of tubal ligation Family History Mother Type 2 diabetes mellitus Hypertension Maternal Grandmother Myocardial infarction Social History Household Members: None Housing: Apartment Are you a primary healthcare consulting manager to a significant other at home: No Do you presently have visiting nurse or other home services: No Alcohol intake: never Comment: medicated, see MAR Patient Tobacco Use Status: Former Tobacco user Tobacco use type: Cigarette e-Cigarette/Vaping Use: Never Used Second Hand Smoke Exposure: No Substance Use Type: Marijuana service: No Current occupational status: unemployed Cognitive needs: No Hearing needs: Yes (partially deaf ) Vision needs: Yes Physical Exam Vital Signs: Last Vital Signs Pulse 65 04/09/24 09:10 BP 198/87 H 04/09/24 09:10 BMI result Body Mass Index 33.9 Neck Other: No obvious cervical periclavicular axillary or anterior neck masses demonstrated. Chest Other: Chest breath sounds bilaterally GI Other: Abdomen corpulent, soft, benign Assessment & Plan Assessment & Plan (1) Hyperparathyroidism: Code(s): E21.3 - Hyperparathyroidism, unspecified Category: Surgical Plan: Patient underwent sestamibi scan suggestive of a left inferior parathyroid adenoma. Findings were read as ?equivocal?. Current plan is to arrange for a CT SPECT scan to further evaluate the anatomy to determine if the patient does indeed have a parathyroid adenoma. Patient will see me after this study. Further interventions will be determined status post the above-mentioned scan. All questions answered. Orders: Orders NM parathyroid SPECT w CT Today E21.3 - Hyperparathyroidism, unspecified Coding Level of Care Code New Pt Level 4 (84966) Diagnoses Hyperparathyroidism E21.3
[2024-04-09 09:10] VITALS: BP 198/87; PULSE 65; BMI 33.9
== END 2024-04-09 09:23 | disposition home or self-care (01) ==
PROVIDERS: PCP Internal Medicine; Visit Provider Surgery
DX: E21.3 Hyperparathyroidism, unspecified (principal)
CPT/HCPCS: 99204

== ENCOUNTER → 2024-04-09 08:33 | Outpatient (BNVA) | payer OTHER, SELFPAY | PROVIDERS: PCP Internal Medicine; Visit Provider Surgery | DX: E21.3 Hyperparathyroidism, unspecified (principal) | CPT/HCPCS: 99202 ==

== ENCOUNTER 2024-04-23 08:49 | Outpatient (AMB) | payer OTHER, SELFPAY ==
--- NOTE | 2024-04-23 09:07 | MHC.OFFVIS ---
Vital Signs 04/23/24 09:09 Height 5 ft 6 in Weight 210 lb 5.136 oz BMI 33.9 BP 160/96 H Blood Pressure Location Lt brachial Position Sitting Pulse 63 Intake Visit Reasons: 6 mth f/up Media Specialist Required: No Accompanied by: Self / Same As Patient Allergies cephalexin [From KEFLEX] Allergy (Intermediate, Verified 04/09/24 09:04) HIVES Medication List - Last Reconciled 04/23/24 by Zander May MD alcohol swabs 1 pad topical TID 90 days aspirin 81 mg PO DAILY blood pressure monitor (Blood Pressure Kit) As directed blood sugar diagnostic (FreeStyle Lite Strips) 4 times a day dapagliflozin propanediol (Farxiga) 10 mg PO DAILY dicyclomine 20 mg PO QID flash glucose scanning reader (FreeStyle Patrick 14 Day [place]) As directed flash glucose sensor (FreeStyle Patrick 14 Day Sensor kit) every 14 days FreeStyle Lite Meter (blood-glucose meter) 4 times a day NS glucose (Dex4 Glucose) 12 grams (3 x 4 gram) PO Q15M PRN hydrocortisone-acetic acid 1-2 % 4 drps otic (ears) TID insulin glargine U-300 conc (Toujeo Max U-300 SoloStar) 64 units (0.2133 mL) subcut DAILY 30 days insulin lispro 10-24 units20 units before meals (16 units light meals), + 2u for bg over 200, +4 unit bg >250, 10 u with snack. subcutaneously use as directed; 30 days lancets As directed 3x/day latanoprost 0.005% 1 drp ophthalmic (eye) BEDTIME lorazepam mg PO losartan 50 mg PO DAILY metoclopramide HCl (Reglan) 5 mg PO QIDACHS metoprolol succinate ER 200 mg PO DAILY omeprazole 20 mg PO DAILY pen needle, diabetic 5 times a day rosuvastatin 20 mg PO BEDTIME sennosides (Senna Laxative) 17.2 mg (2 x 8.6 mg) PO BEDTIME sod sulf-pot chloride-mag sulf 1.479-0.188- 0.225 gram (Sutab) PO PER PKG DIR for colonoscopy prep tramadol 50 mg PO Q6H PRN 30 days zolpidem 10 mg PO BEDTIME PRN 30 days HPI Comments Details: Phoebe returns for follow-up regarding various cardiac issues. 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 She was on anticoagulation with warfarin for a couple of years after that, but then stopped it as she did not want take anything. In March 2016, she was hospitalized once again for non ST elevation myocardial infarction and underwent cardiac catheterization and bare metal stenting to circumflex. Also carries a diagnosis of pulmonary embolism. Was on anticoagulation but not anymore. She has a long history of noncompliance. Most recently, she states she has not been taking amlodipine as there were no refills. Today's blood pressure is high and that might be the reason. She gets some vague nonexertional discomfort in the left upper chest but otherwise nothing clearly exertional. [facility] Medical History Colon cancer screening Type 2 diabetes mellitus with hyperglycemia Skin tag Atherosclerotic cardiovascular disease Calcific tendinitis of right shoulder Adhesive capsulitis of right shoulder Back pain Upper respiratory infection Arm pain Dizziness Type 2 diabetes mellitus with unspecified complications Dyspnea on exertion SOB (shortness of breath) Gastroparesis Headache On anticoagulant therapy Hidradenitis suppurativa Pulmonary embolism Type 2 diabetes mellitus with chronic kidney disease Precordial chest pain Vitamin D deficiency HTN (hypertension) On beta jacqueline at home Axillary hidradenitis suppurativa Proliferative diabetic retinopathy associated with type 2 diabetes mellitus Diabetic polyneuropathy associated with type 2 diabetes mellitus Diabetic nephropathy associated with type 2 diabetes mellitus 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 pylori infection Anxiety and depression Acute angle-closure glaucoma CVA (cerebral vascular accident) GERD (gastroesophageal reflux disease) Hypertension Coronary artery disease Hypercholesterolemia Obesity (BMI 30-39.9) Surgical History History of hysterectomy History of surgery (03/21/23) Hx of excision of mass History of axillary surgery History of axillary surgery (08/21/20) History of esophagogastroduodenoscopy (EGD) History of angioplasty History of cardiac catheterization (~03/30/16) S/P LILY-BSO History of endometrial ablation Amputation of right index finger History of tubal ligation Family History Mother Type 2 diabetes mellitus Hypertension Maternal Grandmother Myocardial infarction Social History Household Members: None Housing: Apartment Are you a primary customer care professional to a significant other at home: No Do you presently have visiting nurse or other home services: No Alcohol intake: never Comment: medicated, see MAR Patient Tobacco Use Status: Former Tobacco user Tobacco use type: Cigarette e-Cigarette/Vaping Use: Never Used Second Hand Smoke Exposure: No Substance Use Type: Marijuana service: No Current occupational status: unemployed Cognitive needs: No Hearing needs: Yes (partially deaf ) Vision needs: Yes Review of Systems Const Denies chills, Denies fatigue, Denies fever(s), Denies weight gain and Denies weight loss ENT Denies dizziness Card Reports chest pain, Denies leg edema, Denies lightheadedness, Denies palpitations, Reports dyspnea on exertion, Denies orthopnea and Denies other Resp Denies cough and Reports dyspnea on exertion GI Denies hematochezia and Denies change in stool character Musc Denies abnormal gait, Denies muscle weakness, Denies numbness, Denies radiating pain into limb and Denies tingling Neuro Denies abnormal gait, Denies dizziness, Denies numbness and Denies tingling Endo Denies fatigue and Denies palpitations Physical Exam Vital Signs: Last Vital Signs Pulse 63 04/23/24 09:09 BP 160/96 H 04/23/24 09:09 BMI result Body Mass Index 33.9 Const General: comfortable and no acute distress Orientation/consciousness: patient oriented x3 HEENT Other: Unremarkable Head: Yes normal to inspection Neck Neck: Yes normal visual inspection Chest Chest palpation & inspection: normal inspection of the chest Resp Auscultation: clear to auscultation bilaterally Cardio Palpation: normal PMI Heart sounds: S1 normal heart sound present, S2 normal heart sound present, no gallops, no murmurs and no rubs GI Palpation (GI): Soft to palpation Back/Spine/Pelvis Other: unremarkable Skin General skin exam: no rashes or lesions noted Neuro General: patient oriented x3 Extrem General: Yes normal to inspection Psych Mental Status: mental status grossly normal Office Procedures EKG Details: EKG with sinus rhythm at 63/Min; inferior infarct; old anteroseptal infarct; lateral T inversions and overall similar to prior. [id number], Complete Assessment & Plan Assessment & Plan (1) Atherosclerotic cardiovascular disease: Code(s): I25.10 - Atherosclerotic heart disease of [place] coronary artery without angina pectoris Category: Medical Plan: Cardiac catheterization from 2016 reviewed. She had distal circumflex 100% stenosis with evidence of thrombus. Bare metal stent placed due to noncompliance. There was moderate stenosis in the mid LAD. Chronic dissection in the distal left anterior still seen. In the most recent echocardiogram, LVEF was described to be low at 35-40% with wall motion abnormalities consistent with ischemic heart disease. In the previous echocardiogram, LVEF was 54% but on review of images, there was no major change. No overt angina but she is overall high risk because of many comorbidities and also compliance issues. Will repeat her stress perfusion imaging study to assess for any major ischemic findings. Even if it is strongly positive, cardiac catheterization will be difficult as she does have CKD which will put her at risk of dialysis. Hence more than likely, medical management only. For meds, aspirin and statins currently in her list. Zetia was in her list in the past but not anymore. LDL levels are also highly variable in the past which may coincide with compliance at different times. (2) Coronary artery dissection: Code(s): I25.42 - Coronary artery dissection Category: Medical Plan: Stable. (3) Apical mural thrombus: Code(s): I51.3 - Intracardiac thrombosis, not elsewhere classified Category: Medical Plan: She was on warfarin in the past several years ago. In the last echocardiogram, no thrombus noted. (4) Cerebrovascular accident, embolic: Code(s): I63.9 - Cerebral infarction, unspecified Category: Medical Qualifiers: Precerebral and cerebral artery: unspecified cerebral artery Qualified Code(s): I63.40 - Cerebral infarction due to embolism of unspecified cerebral artery Plan: No residual deficit. (5) Essential hypertension: Code(s): I10 - Essential (primary) hypertension Category: Medical Plan: She has not been taking amlodipine recently. New script is being sent. Again increased compliance. (6) Type 2 diabetes mellitus with unspecified complications: Code(s): E11.8 - Type 2 diabetes mellitus with unspecified complications Category: Medical Plan: Do not see any recent hemoglobin A1c levels. Previously, on the higher side. Complications from poorly controlled diabetes have been discussed numerous times. (7) Chronic kidney disease: Code(s): N18.9 - Chronic kidney disease, unspecified Category: Medical Plan: Most recent creatinine is 2.75. She sees Nephrology as well. Orders: Orders CA stress test Today I25.10 - Atherosclerotic heart disease of [place] coronary artery without angina pectoris, R07.2 - Precordial pain NM cardiolite stress test Today I25.10 - Atherosclerotic heart disease of [place] coronary artery without angina pectoris, R07.2 - Precordial pain Medications: New amlodipine 10 mg PO DAILY 90 tabs 3RF I25.10 - Atherosclerotic heart disease of [place] coronary artery without angina pectoris Coding Level of Care Code Est Pt Level 4 (71434) Diagnoses Atherosclerotic cardiovascular disease I25.10 Coronary artery dissection I25.42 Apical mural thrombus I51.3 Cerebrovascular accident (CVA) due to embolism of cerebral artery I63.40 Precerebral and cerebral artery: unspecified cerebral artery Essential hypertension I10 Type 2 diabetes mellitus with unspecified complications E11.8 Chronic kidney disease N18.9 CPT Codes EKG - CPT: 55712-[id number], Complete ([id number])
[2024-04-23 09:09] VITALS: BP 160/96; PULSE 63; BMI 33.9
== END 2024-04-23 09:45 | disposition home or self-care (01) ==
PROVIDERS: PCP Internal Medicine; Visit Provider Internal Medicine
DX: I25.10 Atherosclerotic heart disease of native coronary artery without angina pectoris (principal); I25.42 Coronary artery dissection; I51.3 Intracardiac thrombosis, not elsewhere classified; I63.40 Cerebral infarction due to embolism of unspecified cerebral artery; I12.9 Hypertensive chronic kidney disease with stage 1 through stage 4 chronic kidney disease, or unspecified chronic kidney disease; E11.8 Type 2 diabetes mellitus with unspecified complications; N18.9 Chronic kidney disease, unspecified
CPT/HCPCS: 93010; 99214

== ENCOUNTER → 2024-04-23 08:49 | Outpatient (BNVA) | payer OTHER, SELFPAY | PROVIDERS: PCP Internal Medicine; Visit Provider Internal Medicine | DX: I25.10 Atherosclerotic heart disease of native coronary artery without angina pectoris (principal); I25.42 Coronary artery dissection; I51.3 Intracardiac thrombosis, not elsewhere classified; I63.40 Cerebral infarction due to embolism of unspecified cerebral artery; E11.22 Type 2 diabetes mellitus with diabetic chronic kidney disease; I12.9 Hypertensive chronic kidney disease with stage 1 through stage 4 chronic kidney disease, or unspecified chronic kidney disease; N18.9 Chronic kidney disease, unspecified; R94.31 Abnormal electrocardiogram [ECG] [EKG] | CPT/HCPCS: 93005; 99212 ==

== ENCOUNTER 2024-04-29 13:41 | Outpatient (AMB) | payer OTHER, SELFPAY ==
--- NOTE | 2024-04-29 13:52 | A.OFFPC_ITS ---
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 Last seen in January 2024. She has diabetes mellitus uncontrolled coronary artery disease GERD hypercholesterolemia hypertension chronic kidney disease generalized anxiety disorder history of pulmonary embolism coming in for follow-up. Mammogram is up-to-date bone density is up-to-date. Patient recently seen Cardiology(2007 spontaneous left anterior descending artery dissection by cardiac catheterization apical left ventricular aneurysm with thrombus and suspected embolic CVA) anticoagulation with Coumadin then patient has stopped on her own. 2016 had MD and bare metal stent placed. History of pulmonary embolism EF 35-40% advised to get stress perfusion imaging studies. Last echo no thrombus noted.. Patient has a parathyroid adenoma seen by surgeon in April [address] SPECT scan. Patient also has followed up with Nephrology 04/27/2024 stage 4 chronic kidney disease goal is to slow progression avoid NSAIDs low-sodium diet controlled diabetes blood pressure weight loss with the hypercalcemia prescription for cinacalcet sent in advised preemptive renal transplant evaluation. Patient did see the vascular surgeon t April 02 status post right SFA angioplasty. Echocardiogram March 2024Moderately reduced LV ejection fraction at 35-40% with grade 2 diastolic dysfunction with underlying regional wall motion abnormality consistent with ischemic cardiomyopathy 2. Mildly dilated left atrium 3. Normal cardiac valvular Doppler 4. Normal RV systolic pressure Patient had an ultrasound of the lower extremities in March 2024 results show mild peripheral arterial disease on the right moderate to severe peripheral arterial disease on the left. Patient has also met with a ballet teacher in February diagnosis of chronic idiopathic constipation and GERD advised to restart Reglan Bentyl and senna continue with pantoprazole patient needs colonoscopy. ADVISED TO BRING MEDS For us to reconcile. feet has corn [facility] Medical History (Updated 07/22/24 @ 14:54 by Alfredo Sanders MD) Type 2 diabetes mellitus with hyperglycemia Colon cancer screening Skin tag Atherosclerotic cardiovascular disease Calcific tendinitis of right shoulder Adhesive capsulitis of right shoulder Back pain Upper respiratory infection Arm pain Dizziness Type 2 diabetes mellitus with unspecified complications Dyspnea on exertion SOB (shortness of breath) Gastroparesis Headache On anticoagulant therapy Hidradenitis suppurativa Pulmonary embolism Type 2 diabetes mellitus with chronic kidney disease Precordial chest pain Vitamin D deficiency HTN (hypertension) On beta jacqueline at home Axillary hidradenitis suppurativa Proliferative diabetic retinopathy associated with type 2 diabetes mellitus Diabetic polyneuropathy associated with type 2 diabetes mellitus Diabetic nephropathy associated with type 2 diabetes mellitus 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 pylori infection Anxiety and depression Acute angle-closure glaucoma CVA (cerebral vascular accident) GERD (gastroesophageal reflux disease) Hypertension Coronary artery disease Hypercholesterolemia Obesity (BMI 30-39.9) Surgical History History of hysterectomy History of surgery (03/21/23) Hx of excision of mass History of axillary surgery History of axillary surgery (08/21/20) History of esophagogastroduodenoscopy (EGD) History of angioplasty History of cardiac catheterization (~03/30/16) S/P LILY-BSO History of endometrial ablation Amputation of right index finger History of tubal ligation Family History Mother Type 2 diabetes mellitus Hypertension Maternal Grandmother Myocardial infarction Social History Household Members: None Housing: Apartment Are you a primary reproductive healthcare assistant to a significant other at home: No Do you presently have visiting nurse or other home services: No Alcohol intake: never Comment: medicated, see MAR Patient Tobacco Use Status: Former Tobacco user Tobacco use type: Cigarette e-Cigarette/Vaping Use: Never Used Second Hand Smoke Exposure: No Substance Use Type: Marijuana service: No Current occupational status: unemployed Cognitive needs: No Hearing needs: Yes (partially deaf ) Vision needs: Yes Questionnaire Thrive Questionnaire Date Thrive assessed: 02/05/24 AUDIT C Alcohol Use Questionnaire (AUDIT-C) 1. How often do you have a drink containing alcohol?: Never 3. How often do you have six or more drinks on one occasion?: Never Total Score: 0 BRAXTON-7 AMB Questionnaire BRAXTON-7 Date BRAXTON - 7 assessed: 02/05/24 Source: Developed by Drs. Tushar Villar, Dinorah Ariza, Kobi Carver and colleagues, with an educational neto from [employer]. Physical exam (Primary Care) Vital Signs: Last Vital Signs Pulse 66 04/29/24 13:59 BP 138/80 04/29/24 13:59 Pulse Ox 97 04/29/24 13:59 Oxygen Delivery Method Room Air 04/29/24 13:59 BMI result Body Mass Index 33.6 Tobacco/Smoking Status: Tobacco use Status Tobacco use date assessed 02/05/24 04/29/24 13:52 Patient Tobacco Use Status Former Tobacco user 04/29/24 13:52 Tobacco use type Cigarette 04/29/24 13:52 e-Cigarette/Vaping Use Never Used 04/29/24 13:52 Thrive Assessment: Date of Thrive Assessment Date Thrive assessed 02/05/24 04/29/24 13:52 Const General: alert; No acute distress Eyes Conjunctivae: conjunctivae normal Resp Auscultation: clear to auscultation bilaterally Cardio Rate: regular rate Rhythm: regular rhythm GI Inspection: Yes normal to inspection Extrem General: Yes normal to inspection and No edema Results AMB Hemoglobin A1c AMB Hemoglobin A1c 9.7 % Last Edit by MIKEL Pereira on 04/29/24 14:09 Results Reviewed Results Reviewed: Laboratory Last Values Hgb A1c (Clinic) 9.7 % (4.0-6.0) H 04/29/24 08:35 Assessment and Plan Assessment & Plan (1) Obesity (BMI 30-39.9): Code(s): E66.9 - Obesity, unspecified Plan: Diet and exercise (2) Type 2 diabetes mellitus with hyperglycemia: Comment: IDDM, Dr. 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 Hemoglobin A1c goal of less than 6.5 patient is uncontrolled on Farxiga 10 mg once a day Toujeo insulin lispro patient follows up with endocrinology. will be seeing. (3) Chronic kidney disease, stage 4 (severe): Code(s): N18.4 - Chronic kidney disease, stage 4 (severe) Plan: Patient has seen Nephrology and renal replacement therapy initiated. (4) Coronary artery disease: Comment: stent placement March 2016, echo March 2019 normal LV function, impaired relaxation Chest pains on and off-not like when she had the MD. Sees Dr May. Intermediate risk for surgery. Code(s): I25.10 - Atherosclerotic heart disease of [place] coronary artery without angina pectoris Qualifiers: Coronary Disease-Associated Artery/Lesion type: [place] artery [place] vs. transplanted heart: [place] heart Associated angina: without angina Qualified Code(s): I25.10 - Atherosclerotic heart disease of [place] coronary artery without angina pectoris Plan: Control the cholesterol, weight, blood pressure, diabetes continue to follow up with Cardiology advised stress test nuclear (5) GERD (gastroesophageal reflux disease): Code(s): K21.9 - Gastro-esophageal reflux disease without esophagitis Qualifiers: Esophagitis presence: without esophagitis Qualified Code(s): K21.9 - Gastro-esophageal reflux disease without esophagitis Plan: Avoid the foods that causes that usually spicy foods, tomato products, juices, coffee, soda and foods that your sensitive to. After eating do not lie down, allow 3-4 hours before in lie down. And keep the head of bed above 30 degrees to avoid the acid from going up. (6) Essential hypertension: Code(s): I10 - Essential (primary) hypertension Plan: Continue with blood pressure medication. Decrease salt intake and exercise patient has been noncompliant on metoprolol 200 mg once a day losartan 50 mg once a day amlodipine 10 mg once a (7) Hyperlipidemia, unspecified: Code(s): E78.5 - Hyperlipidemia, unspecified Qualifiers: Hyperlipidemia type: moderate mixed hyperlipidemia not requiring statin therapy Qualified Code(s): E78.2 - Mixed hyperlipidemia Plan: Avoid fried foods, chicken skin, eggs, butter margarine, pastries and meat. Be it pork or beef they have a lot of cholesterol patient needs to have blood work done LDL goal of less than 70 and triglyceride of less than 150 on rosuvastatin 20 mg once a day (8) Peripheral vascular disease: Comment: 09/15/2016 - right SFA angioplasty Code(s): I73.9 - Peripheral vascular disease, unspecified Plan: When sitting down elevate the legs, exercise, and support stockings patient is being followed up by vascular and planned procedure. (9) Generalized anxiety disorder: Code(s): F41.1 - Generalized anxiety disorder Plan: Continue with therapy (10) Parathyroid adenoma: Code(s): D35.1 - Benign neoplasm of parathyroid gland Plan: Patient has seen the surgeon and advised nuclear SPECT procedure. 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 insulin Medications: New acetic acid 2% 3 drps otic (ear) left TID 15 mL 0RF L29.9 - Pruritus, unspecified Coding Level of Care Code Est Pt Level 4 (67633) Complex EM visit Add On G2211 Diagnoses Obesity (BMI 30-39.9) E66.9 Type 2 diabetes mellitus with hyperglycemia, with long-term current use of insulin E11.65; Z79.4 Diabetes mellitus intermodal customer service insulin use: with halfway use Chronic kidney disease, stage 4 (severe) N18.4 Coronary artery disease involving [place] coronary artery of [place] heart without angina pectoris I25.10 Coronary Disease-Associated Artery/Lesion type: [place] artery [place] vs. transplanted heart: [place] heart Associated angina: without angina Gastroesophageal reflux disease without esophagitis K21.9 Esophagitis presence: without esophagitis Essential hypertension I10 Moderate mixed hyperlipidemia not requiring statin therapy E78.2 Hyperlipidemia type: moderate mixed hyperlipidemia not requiring statin therapy Peripheral vascular disease I73.9 Generalized anxiety disorder F41.1 Parathyroid adenoma D35.1 Itching of ear L29.9
[2024-04-29 13:59] VITALS: BP 138/80; PULSE 66; O2SAT 97; BMI 33.6
== END 2024-04-29 15:01 | disposition home or self-care (01) ==
PROVIDERS: PCP Internal Medicine; Visit Provider Internal Medicine
DX: I12.9 Hypertensive chronic kidney disease with stage 1 through stage 4 chronic kidney disease, or unspecified chronic kidney disease (principal); N18.4 Chronic kidney disease, stage 4 (severe); E11.22 Type 2 diabetes mellitus with diabetic chronic kidney disease; E11.65 Type 2 diabetes mellitus with hyperglycemia; Z79.4 Long term (current) use of insulin; I73.9 Peripheral vascular disease, unspecified; E66.9 Obesity, unspecified; Z68.33 Body mass index [BMI] 33.0-33.9, adult; I25.10 Atherosclerotic heart disease of native coronary artery without angina pectoris; K21.9 Gastro-esophageal reflux disease without esophagitis; E78.2 Mixed hyperlipidemia; F41.1 Generalized anxiety disorder
CPT/HCPCS: 83036; 99214; G2211

== ENCOUNTER 2024-05-02 10:20 | Outpatient (AMB) | payer OTHER, SELFPAY ==
--- NOTE | 2024-05-02 10:24 | A.OFFVIS_ITS ---
Vital Signs 05/02/24 10:31 Height 5 ft 6 in Weight 209 lb 14.081 oz BMI 33.9 BP 136/68 Blood Pressure Location Rt brachial Position Sitting Pulse 62 Pulse Source Pulse Oximeter Pulse Oximetry (%) 98 Oxygen Delivery Method Room Air Intake Visit Reasons: 4 week follow up pt r/s from March Intake Note: Phoebe presents in office today for a scheduled 1 month FUV. CC; Pt reports that their condition has gotten slightly worse over the course of the last month or so. Pt states that their sx have remained the same, no new concerns or sx presently. Pt does confirm that they are taking all their medication as directed. 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: No Allergies cephalexin [From KEFLEX] Allergy (Intermediate, Verified 05/02/24 10:24) HIVES HPI HPI 4 week follow up pt r/s from March: Details: Assessment & Plan (1) Chronic idiopathic constipation: Code(s): K59.04 - Chronic idiopathic constipation Category: Medical (2) Right lower quadrant abdominal pain: Code(s): R10.31 - Right lower quadrant pain Category: Medical (3) GERD (gastroesophageal reflux disease): Code(s): K21.9 - Gastro-esophageal reflux disease without esophagitis Category: Medical Qualifiers: Esophagitis presence: without esophagitis Qualified Code(s): K21.9 - Gastro-esophageal reflux disease without esophagitis (4) Pre-op examination: Code(s): Z01.818 - Encounter for other preprocedural examination Category: Medical (5) Chronic kidney disease, stage 4 (severe): Code(s): N18.4 - Chronic kidney disease, stage 4 (severe) Category: Medical (6) Pulmonary embolism: Code(s): I26.99 - Other pulmonary embolism without acute cor pulmonale Category: Medical Plan She has been having more abd cramping, CIC and N/V but since she has not seem me in over a year she is out of most of her medications. Will restart reglan, bentyl, senna and she continues on pantoproazole She has some rb on the TT but this resolves with proctosol cream She needs a colonoscopy as she has never had one, for screening and for her possible renal transplant There are no prior problems with anesthesia or sedation. Her CAD and asthma are well controlled No ID problems. There is no known family history of colon cancer or polyps. ROV 4 weeks Orders: Orders Colonoscopy - GI Use Only Today Z01.818 - Encounter for other preprocedural examination Medications: New dicyclomine 20 mg PO QID 120 tabs 1RF 30 days sennosides (Senna Laxative) 17.2 mg (2 x 8.6 mg) PO BEDTIME 60 tabs 6RF metoclopramide HCl (Reglan) 5 mg PO QIDACHS 120 tabs 6RF sod sulf-pot chloride-mag sulf 1.479-0.188- 0.225 gram (Sutab) PO PER PKG DIR for colonoscopy prep 24 tabs 0RF Refilled omeprazole 20 mg PO DAILY 90 caps 1RF E11.22 - Type 2 diabetes mellitus with diabetic chronic kidney disease, N18.30 - Chronic kidney disease, stage 3 unspecified COLONOSCOPY Scheduled for 07/03/2024 BIOPSY TODAY'S VISIT bentyl more CIC, reglan drowsiness with other meds, senna ok prn. She is having a lot of pain in the LUQ and she is only passing small stools varying from hard to soft; even when soft she is only passing a small amt and usually only once a day. The pain will subside if she can move her bowels better. She is taking 2 senna every night but still will not move her bowels. We will progress to dulcolax. The o2o is controlling her GERD well. rov 2 weeks. [facility] Medical History (Reviewed 05/02/24 @ 10:24 by Francisco Garcia [facility]) Type 2 diabetes mellitus with hyperglycemia Colon cancer screening Skin tag Atherosclerotic cardiovascular disease Calcific tendinitis of right shoulder Adhesive capsulitis of right shoulder Back pain Upper respiratory infection Arm pain Dizziness Type 2 diabetes mellitus with unspecified complications Dyspnea on exertion SOB (shortness of breath) Gastroparesis Headache On anticoagulant therapy Hidradenitis suppurativa Pulmonary embolism Type 2 diabetes mellitus with chronic kidney disease Precordial chest pain Vitamin D deficiency HTN (hypertension) On beta jacqueline at home Axillary hidradenitis suppurativa Proliferative diabetic retinopathy associated with type 2 diabetes mellitus Diabetic polyneuropathy associated with type 2 diabetes mellitus Diabetic nephropathy associated with type 2 diabetes mellitus assisted (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 pylori infection Anxiety and depression Acute angle-closure glaucoma CVA (cerebral vascular accident) GERD (gastroesophageal reflux disease) Hypertension Coronary artery disease Hypercholesterolemia Obesity (BMI 30-39.9) Surgical History History of hysterectomy History of surgery (03/21/23) Hx of excision of mass History of axillary surgery History of axillary surgery (08/21/20) History of esophagogastroduodenoscopy (EGD) History of angioplasty History of cardiac catheterization (~03/30/16) S/P LILY-BSO History of endometrial ablation Amputation of right index finger History of tubal ligation Family History Mother Type 2 diabetes mellitus Hypertension Maternal Grandmother Myocardial infarction Social History Household Members: None Housing: Apartment Are you a primary tree care foreman to a significant other at home: No Do you presently have visiting nurse or other home services: No Alcohol intake: never Comment: medicated, see MAR Patient Tobacco Use Status: Former Tobacco user Tobacco use type: Cigarette e-Cigarette/Vaping Use: Never Used Second Hand Smoke Exposure: No Substance Use Type: Marijuana service: No Current occupational status: unemployed Cognitive needs: No Hearing needs: Yes (partially deaf ) Vision needs: Yes Review of Systems Const Denies fatigue, Denies fever(s), Denies night sweats, Denies poor appetite and Denies weight loss ENT Reports Normal hearing present, Denies dental pain, Denies dysphagia, Denies hearing loss, Denies mouth pain, Denies odynophagia, Denies throat swelling, Denies tongue swelling and Reports other (Dentition adequate) Card Reports no additional complaints Resp Reports no additional complaints GI Details: Reports abdominal pain, Denies melena, Denies bloating, Denies hematochezia, Reports constipation, Denies GI cramping, Denies dysphagia, Denies excessive flatus, Denies early satiety, Reports heartburn, Denies diarrhea, Denies nausea, Denies odynophagia, Denies vomiting and Denies hematemesis Skin/Breast Denies pruritus, Denies lesions, Denies rash and Denies jaundice Neuro Reports Normal hearing present and Denies Abnormal speech present Endo Denies fatigue Aller/Immun Denies throat swelling and Denies tongue swelling Physical Exam Vital Signs: Last Vital Signs Pulse 62 05/02/24 10:31 BP 136/68 05/02/24 10:31 Pulse Ox 98 05/02/24 10:31 Oxygen Delivery Method Room Air 05/02/24 10:31 BMI result Body Mass Index 33.9 Const General: cooperative, no acute distress, well developed and well groomed Nutritional Appearance: well nourished and obese Orientation/consciousness: oriented to person, oriented to place and oriented to time Limitations: No language barrier HEENT Head: Yes normocephalic and Yes atraumatic Eyes General: appearance normal, both eyes and all related structures Pupils: Equal, round and reactive pupils present Neck Neck: Yes normal visual inspection and Yes no lymphadenopathy Thyroid: Thyroid normal Resp Effort & Inspection: normal respiratory effort and able to speak in complete sentences Auscultation: clear to auscultation bilaterally Cardio Rate: regular rate Rhythm: regular rhythm Heart sounds: Normal, physiologic split S2 sound present Peripheral pulses: radial pulses present and posterior tibial pulses present GI Inspection: No distended, Yes Abdominal panniculus present and Yes obesity Palpation (GI): Soft to palpation, nontender, no guarding, not rigid and No hepatosplenomegaly present Percussion: Yes normal to percussion Auscultation: normal bowel sounds Rectal Exam - Female: deferred Skin General skin exam: no rashes or lesions noted, turgor normal, skin not dry, no jaundice, No spider nevi and no striae Rashes: no rashes Nails: normal Neuro General: oriented to person, oriented to place and oriented to time Cranial nerves: Yes Equal, round and reactive pupils present and Yes Normal hearing present Speech: No Abnormal speech present Extrem General: Yes normal to inspection, No clubbing, No cyanosis and No edema Psych Appearance: grossly normal and well kempt Mental Status: mental status grossly normal Speech and movement: Normal speech and movement present Affect: normal affect Attitude: cooperative Thought process: Normal thought process present and not confabulating Thought content: Normal thought content present Insight: Limited insight present (Psych) Judgement: Limited judgement present (Psych) Assessment & Plan Assessment & Plan (1) Chronic idiopathic constipation: Code(s): K59.04 - Chronic idiopathic constipation Category: Medical (2) Right lower quadrant abdominal pain: Code(s): R10.31 - Right lower quadrant pain Category: Medical (3) GERD (gastroesophageal reflux disease): Code(s): K21.9 - Gastro-esophageal reflux disease without esophagitis Category: Medical Qualifiers: Esophagitis presence: without esophagitis Qualified Code(s): K21.9 - Gastro-esophageal reflux disease without esophagitis Plan bentyl more CIC, reglan drowsiness with other meds, senna ok prn. She is having a lot of pain in the LUQ and she is only passing small stools varying from hard to soft; even when soft she is only passing a small amt and usually only once a day. The pain will subside if she can move her bowels better. She is taking 2 senna every night but still will not move her bowels. We will progress to dulcolax. The o2o is controlling her GERD well. rov 2 weeks. COLONOSCOPY Scheduled for 07/03/2024 BIOPSY Coding Level of Care Code Est Pt Level 3 (86509) Diagnoses Chronic idiopathic constipation K59.04 Right lower quadrant abdominal pain R10.31 Gastroesophageal reflux disease without esophagitis K21.9 Esophagitis presence: without esophagitis
[2024-05-02 10:31] VITALS: BP 136/68; PULSE 62; O2SAT 98; BMI 33.9
== END 2024-05-02 10:57 | disposition home or self-care (01) ==
PROVIDERS: PCP Internal Medicine; Visit Provider Nurse Practitioner
DX: K59.04 Chronic idiopathic constipation (principal); R10.31 Right lower quadrant pain; K21.9 Gastro-esophageal reflux disease without esophagitis
CPT/HCPCS: 99213

== ENCOUNTER → 2024-05-02 10:20 | Outpatient (BNVA) | payer OTHER, SELFPAY | PROVIDERS: PCP Internal Medicine; Visit Provider Nurse Practitioner | DX: K59.04 Chronic idiopathic constipation (principal); R10.31 Right lower quadrant pain; K21.9 Gastro-esophageal reflux disease without esophagitis | CPT/HCPCS: 99212 ==

== ENCOUNTER → 2024-05-06 07:37 | Outpatient (REF) | payer OTHER, SELFPAY ==
--- NOTE | ~2024-05-06 | NM_ITS ---
EXAMINATION: NM PARATHYROID CLINICAL INFORMATION: Hyperparathyroidism. COMPARISON: Radionuclide parathyroid scan done on 01/17/2024. TECHNIQUE: A double radionuclide study using a gamma scintillation camera of the thyroid bed region and upper chest in multiple projections was performed 4 hours after the oral administration of 980 microcuries I-123 sodium iodide and immediately following the intravenous administration of 30 mCi Tc-99m sestamibi. The iodide images were electronically subtracted from the sestamibi images using different weighting factors. In addition, for each of the I-123 and technetium 99m photopeaks, single photon emission tomography (SPECT) of the mid skull to the upper chest in the mid cardiac level was also performed acquiring 120 projections of 20 seconds each over 360 degrees using a noncircular orbit and an acquisition matrix of [id number]. Transverse, coronal and sagittal projections and a cine volume were reconstructed in separate image sets for the I-123 and technetium 99m photopenic acquisitions. FINDINGS: PLANAR IMAGES: There is homogeneous uptake of radioiodine throughout both lobes. The thyroid gland appears to be normal in size and shape. There are no focal areas of increased or diminished uptake. Technetium 99m sestamibi images demonstrate homogeneous thyroid activity. Subtle asymmetric increased tracer avidity is noted at mid to inferior outer aspect of the left lobe of the thyroid gland. Computer-generated digital subtraction images subtle focal asymmetric increased tracer avidity along outer mid to inferior part of the left lobe of the thyroid gland and possible small focal increased tracer avidity near the inferior pole of the right lobe as well. SPECT IMAGES: The I-123 sodium iodide and the technetium 99m sestamibi images do not show additional abnormality that is not visualized on the planar pinhole collimator images. Incidental note is made of mucoperiosteal thickening of almost the entire visualized included part of the left maxillary sinus consistent with sinusitis, likely chronic given the presence of asymmetric diffuse wall thickening/sclerosis. Note is also made of dense coronary arterial calcification especially involving the LAD. NM/NM parathyroid SPECT w CT IMPRESSION: Subtle focal asymmetric increased tracer avidity along the outer mid to inferior part of the left lobe of the thyroid gland and possible small focal increased tracer avidity near the inferior pole of the right lobe as well seen best on subtraction images, suspicious for parathyroid adenoma/hyperplasia. The findings seen near the inferior pole of the right lobe appears new since the prior study done on 01/17/2024. There is homogeneous uptake of radioiodine in the thyroid gland which is also normal in size and shape. Follow-up [address] of the soft tissue neck and/or targeted ultrasound as appropriate is recommended for further imaging correlation. Incidental note is made of dense atherosclerotic coronary arterial disease.
[2024-05-06 09:04] LABS: MANUAL DIFF FLAG NO
[2024-05-06 09:21] LABS: Basophils Absolute Auto 0.1 X10*3/uL (0.0-0.2); Basophils Percent Auto 0.6 % (0-2); Eosinophils Absolute Auto 0.1 X10*3/uL (0.0-0.4); Hematocrit 48.9 % (37.0-47.0); Hemoglobin 15.7 g/dl (12.0-16.0); Imm Gran Abs Auto 0.02 X10*3/uL (0.00-0.03); Imm Gran Pct Auto 0.2 % (0.0-0.4); Lymphocytes Absolute Auto 2.2 X10*3/uL (1.2-4.9); Lymphocytes Percent Auto 26.3 % (20-40); Mean Corpuscular HGB Conc 32.1 g/dl (31.0-35.0); Mean Corpuscular Hemoglobin 26.9 pg (27.0-33.0); Mean Corpuscular Volume 83.7 fL (80.0-98.0); Mean Platelet Volume 11.7 fL (9.4-12.3); Monocytes Absolute Auto 0.7 X10*3/uL (0.1-1.2); Monocytes Percent Auto 8.3 % (2-11); Neutrophils Absolute Auto 5.2 x10*3/uL (2.0-8.3); Neutrophils Percent Auto 63.6 % (45-73); Platelet Count 214 X10*3/uL (160-400); Red Blood Count 5.84 X10*6/uL (4.20-5.50); Red Cell Distribution Width 14.7 % (11.0-16.0); White Blood Count 8.2 X10*3/uL (4.8-10.8)
[2024-05-06 09:49] LABS: Estimated Average Glucose 217 mg/dL; Hemoglobin A1c % 9.2 % (<6.0)
[2024-05-06 10:13] LABS: Alanine Aminotransferase 17 U/L (0-31); Albumin Level 3.9 g/dL (3.5-5.0); Alkaline Phosphatase 98 U/L (39-117); Anion Gap 11 (12-20); Aspartate Amino Transferase 16 U/L (5-31); Bilirubin Total 0.3 mg/dL (0.0-1.0); Blood Urea Nitrogen 28 mg/dL (9-16); Calcium 10.6 mg/dL (8.4-10.2); Carbon Dioxide 21 mmol/L (22-29); Chloride 108 mmol/L (96-108); Cholesterol 187 mg/dL (<200); Estimated Glomerular Filt Rate 18; Glucose Random 183 mg/dL (60-115); HDL Cholesterol 43 mg/dL (>40); LDL Cholesterol Calculated 112 mg/dL (<100); Potassium 4.3 mmol/L (3.3-5.1); Sodium 136 mmol/L (135-145); Total Protein 7.8 g/dL (6.5-8.0); Triglycerides 161 mg/dL (<150)
[2024-05-06 10:31] LABS: Free T4 (Free Thyroxine) 0.91 ng/dL (0.71-1.85); Thyroid Stimulating Hormone 1.52 uIU/mL (0.32-4.0); Vitamin D 25-OH Total 27.2 ng/mL (>30)
[2024-05-06 11:00] LABS: Folate 8.7 ng/mL (> or = 4.0); Vitamin B12 794 pg/mL (200-900)
[2024-05-09 02:29] LABS: TS Negative Control Passed; TS Panel A 0; TS Panel B 0; TS Positive Control Passed; TSpotTB Negative (Negative)
== END ==
LOC: HO.NUCMED 07:37
PROVIDERS: Absent Provider Internal Medicine; PCP Internal Medicine; Visit Provider Surgery
DX: E21.3 Hyperparathyroidism, unspecified (principal); E78.00 Pure hypercholesterolemia, unspecified; E11.65 Type 2 diabetes mellitus with hyperglycemia; Z79.4 Long term (current) use of insulin; Z11.1 Encounter for screening for respiratory tuberculosis
CPT/HCPCS: 36415; 78072; 80053; 80061; 82306; 82607; 82746; 83036; 84439; 84443; 85025; 86481; A9516

== ENCOUNTER 2024-05-24 10:27 | Outpatient (REF) | payer OTHER, SELFPAY ==
[2024-05-24 17:26] LABS: Bacterial Vaginosis PCR NEGATIVE (Negative); Candida Group PCR NOT DETECTED (Not Detect); Candida glab krusei PCR DETECTED (Not Detect); Trichomonas vaginalis PCR NOT DETECTED (Not Detect)
== END 2024-05-24 10:28 | disposition home or self-care (01) ==
LOC: HO.LAB 10:27
PROVIDERS: PCP Internal Medicine; Visit Provider Advanced Practice Midwife
DX: N89.8 Other specified noninflammatory disorders of vagina (principal); N64.4 Mastodynia; L73.2 Hidradenitis suppurativa
CPT/HCPCS: 0352U; 99396

== ENCOUNTER 2024-05-24 10:27 | Outpatient (AMB) | payer OTHER, SELFPAY ==
--- NOTE | 2024-05-24 10:48 | A.OFFVIS_ITS ---
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 She is doing well with concerns: Reports left breast pain intermittently. Also reports her Hydreadenitis supportiva history of surgery x2 with Dr. Small currently has a bump on her buttocks she has been using a warm compress on. Attempting to eat a healthy diet with calcium and vitamin D and stays active wi th exercise. Currently sexually active. Admits to vaginal dryness and irritation(HS). STI testing offered; she declines. Last pap smear; 2016. Last mammogram; 2023. Colonoscopy is booked 07/03/24. Denies any family history of ovarian or colon cancer. breast cancer-PG. [facility] Medical History (Updated 05/24/24 @ 11:30 by Sadia Garcia CNM) Type 2 diabetes mellitus with hyperglycemia Colon cancer screening Skin tag Atherosclerotic cardiovascular disease Calcific tendinitis of right shoulder Adhesive capsulitis of right shoulder Back pain Upper respiratory infection Arm pain Dizziness Type 2 diabetes mellitus with unspecified complications Dyspnea on exertion SOB (shortness of breath) Gastroparesis Headache On anticoagulant therapy Hidradenitis suppurativa Pulmonary embolism Type 2 diabetes mellitus with chronic kidney disease Precordial chest pain Vitamin D deficiency HTN (hypertension) On beta jacqueline at home Axillary hidradenitis suppurativa Proliferative diabetic retinopathy associated with type 2 diabetes mellitus Diabetic polyneuropathy associated with type 2 diabetes mellitus Diabetic nephropathy associated with type 2 diabetes mellitus 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 pylori infection Anxiety and depression Acute angle-closure glaucoma CVA (cerebral vascular accident) GERD (gastroesophageal reflux disease) Hypertension Coronary artery disease Hypercholesterolemia Obesity (BMI 30-39.9) Surgical History (Updated 05/24/24 @ 12:58 by Sadia Garcia CNM) History of hysterectomy History of surgery (03/21/23) Hx of excision of mass History of axillary surgery History of axillary surgery (08/21/20) History of esophagogastroduodenoscopy (EGD) History of angioplasty History of cardiac catheterization (~03/30/16) S/P LILY-BSO History of endometrial ablation Amputation of right index finger History of tubal ligation Family History Mother Type 2 diabetes mellitus Hypertension Maternal Grandmother Myocardial infarction Paternal Grandmother History of breast cancer Social History Household Members: None Housing: Apartment Are you a primary primary care nurse practitioner to a significant other at home: No Do you presently have visiting nurse or other home services: No Alcohol intake: never Comment: medicated, see MAR Patient Tobacco Use Status: Former Tobacco user Tobacco use type: Cigarette e-Cigarette/Vaping Use: Never Used Second Hand Smoke Exposure: No Substance Use Type: Marijuana service: No Current occupational status: unemployed Cognitive needs: No Hearing needs: Yes (partially deaf ) Vision needs: Yes Female Reproductive History Menstrual Menopause type: surgical Total pregnancies: 6 Full term: 4 Number of Living Children: 4 Ab induced: 2 Date of last pap smear: 05/29/17 (neg pap and hpv) Date of Mammogram: 11/24/23 (Birad 1) Review of Systems Const All systems reviewed & are unremarkable except as noted in HPI and below Reports as per HPI Eyes Reports no additional complaints ENT Reports no additional complaints Card Reports no additional complaints Resp Reports no additional complaints GI Reports as per HPI and Reports no additional complaints Reports as per HPI Musc Reports no additional complaints Skin/Breast Reports as per HPI Neuro Reports no additional complaints Psych Reports no additional complaints Endo Reports no additional complaints Srinivasan/Lymph Reports no additional complaints Aller/Immun Reports no additional complaints Physical Exam Vital Signs: Last Vital Signs BP 138/90 H 05/24/24 10:49 BMI result Body Mass Index 33.4 Const General: cooperative, healthy appearing, no acute distress, well developed and alert Orientation/consciousness: patient oriented x3 HEENT Head: Yes normal to inspection Eyes General: appearance normal, both eyes and all related structures Neck Neck: Yes normal visual inspection Thyroid: Thyroid normal Chest Other: HS scarring Chest palpation & inspection: normal inspection of the chest and other (no puckering, dimpling, peau de orange, retraction, discharge, masses) Breast/axilla inspection: normal inspection of the breasts Breast/axilla palpation: normal palpation of the breasts and other (She reports tenderness to the left breast at 10 to 11 o'clock position) Resp Effort & Inspection: normal respiratory effort GI Inspection: Yes normal to inspection Palpation (GI): Soft to palpation Rectal Exam - Female: deferred Other: HS scarring, 2 cm rounded slightly tender raised area left gluteal region does not appear infected or inflamed General: Yes bladder normal to palpation External Female Exam: normal external appearance and normal appearance of the urethra Speculum Exam - Vagina: normal appearance of the vagina, normal palpation and normal vaginal discharge (Heavier white discharge) Speculum Exam - Cervix: Cervix absent (Vaginal cuff no lesions or nodules) Bimanual exam- vagina & uterus: normal bimanual exam, normal palpation, bladder normal to palpation and uterus absent Bimanual Exam- Adnexa, other: no masses Skin General skin exam: no rashes or lesions noted Rashes: no rashes Neuro General: patient oriented x3 Cognition (Neuro): normal cognition Extrem General: Yes normal to inspection Psych Attitude: cooperative Thought process: Normal thought process present Assessment & Plan Assessment & Plan (1) Breast pain: Code(s): N64.4 - Mastodynia Category: Medical (2) Hidradenitis suppurativa: Code(s): L73.2 - Hidradenitis suppurativa Category: Medical Plan Discussed: Current recommendations for pap smears per ASCCP guidelines. Breast awareness, periodic self breast exams and yearly mammogram. Maintain a healthy lifestyle, well balanced diet including Calcium 1,200 mg and Vitamin D 600 IU daily, and routine exercise. Offered referral to Dr. Small to evaluate area of her left gluteus for HS, she declines a referral at this time it feels that the warm compresses are helpful. Advised she can use a thin film of Vaseline externally in the labia sparingly if needed for dryness. BV panel obtained await results for plan of care. If any vaginal itching or irritation to return to the office for further eval. Patient verbalizes understanding and agrees to the plan of care. She was given opportunity to ask questions and all questions were answered to the best of my ability. 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 This note is constructed using voice recognition software. While every effort has been made to ensure accuracy, valve steamer errors may have been included. Orders: Orders Bacterial Vaginosis Panel Today N89.8 - Other specified noninflammatory disorders of vagina US breast LT complete Today N64.4 - Mastodynia MM tomosynthesis diagnostic LT Today N64.4 - Mastodynia, Z12.31 - Encounter for screening mammogram for malignant neoplasm of breast Coding Level of Care Code Est Pt Prev Care 40-64y(17591) Diagnoses Breast pain N64.4 Hidradenitis suppurativa L73.2
[2024-05-24 10:49] VITALS: BP 138/90; BMI 33.4
== END 2024-05-24 13:45 | disposition home or self-care (01) ==
PROVIDERS: PCP Internal Medicine; Visit Provider Advanced Practice Midwife
DX: Z01.419 Encounter for gynecological examination (general) (routine) without abnormal findings (principal); N64.4 Mastodynia; L73.2 Hidradenitis suppurativa
CPT/HCPCS: 99396

== ENCOUNTER 2024-05-27 11:59 | Outpatient (AMB) | payer OTHER, SELFPAY ==
--- NOTE | 2024-05-27 12:45 | MHC.OFFVIS ---
Vital Signs 05/27/24 12:46 Height 5 ft 6 in Weight 208 lb BMI 33.6 BP 182/85 H Blood Pressure Location Lt brachial Position Sitting Pulse 69 Intake Visit Reasons: Follow up for NM parathyroid spect Intake Note: Patient here to discuss NM parathyroid spect w/CT on 05-06-2024. Patient c/o: no changes since last visit, here for results Diamond Assorter Required: No Accompanied by: Self / Same As Patient Allergies cephalexin [From KEFLEX] Allergy (Intermediate, Verified 05/27/24 12:48) HIVES HPI Comments Details: Patient presents for follow-up status post nuclear med study regarding her hypercalcemia and question of parathyroid disease. The skin results are somewhat nonspecific regarding a precise etiology for the patient's hypercalcemia. If it is indeed a parathyroid source, and he is unclear whether this is multiple hyperplasia or an adenoma. Since last visit, patient has no new issues or complaints. FORMERLY [facility], [facility] Medical History Type 2 diabetes mellitus with hyperglycemia Colon cancer screening Skin tag Atherosclerotic cardiovascular disease Calcific tendinitis of right shoulder Adhesive capsulitis of right shoulder Back pain Upper respiratory infection Arm pain Dizziness Type 2 diabetes mellitus with unspecified complications Dyspnea on exertion SOB (shortness of breath) Gastroparesis Headache On anticoagulant therapy Hidradenitis suppurativa Pulmonary embolism Type 2 diabetes mellitus with chronic kidney disease Precordial chest pain Vitamin D deficiency HTN (hypertension) On beta jacqueline at home Axillary hidradenitis suppurativa Proliferative diabetic retinopathy associated with type 2 diabetes mellitus Diabetic polyneuropathy associated with type 2 diabetes mellitus Diabetic nephropathy associated with type 2 diabetes mellitus USP (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 pylori infection Anxiety and depression Acute angle-closure glaucoma CVA (cerebral vascular accident) GERD (gastroesophageal reflux disease) Hypertension Coronary artery disease Hypercholesterolemia Obesity (BMI 30-39.9) Surgical History History of hysterectomy History of surgery (03/21/23) Hx of excision of mass History of axillary surgery History of axillary surgery (08/21/20) History of esophagogastroduodenoscopy (EGD) History of angioplasty History of cardiac catheterization (~03/30/16) S/P LILY-BSO History of endometrial ablation Amputation of right index finger History of tubal ligation Family History Mother Type 2 diabetes mellitus Hypertension Maternal Grandmother Myocardial infarction Paternal Grandmother History of breast cancer Social History Household Members: None Housing: Apartment Are you a primary lawn care professional to a significant other at home: No Do you presently have visiting nurse or other home services: No Alcohol intake: never Comment: medicated, see MAR Patient Tobacco Use Status: Former Tobacco user Tobacco use type: Cigarette e-Cigarette/Vaping Use: Never Used Second Hand Smoke Exposure: No Substance Use Type: Marijuana service: No Current occupational status: unemployed Cognitive needs: No Hearing needs: Yes (partially deaf ) Vision needs: Yes Physical Exam Vital Signs: Last Vital Signs Pulse 69 05/27/24 12:46 BP 182/85 H 05/27/24 12:46 BMI result Body Mass Index 33.6 Chest Other: Exam is status quo. Assessment & Plan Assessment & Plan (1) Hypercalcemia: Code(s): E83.52 - Hypercalcemia Category: Surgical Plan Because of the somewhat intra kit and nonspecific findings regarding patient's hypercalcemia and question of parathyroid etiology, may current recommendation is to have the patient referred to formal endocrine surgical consultation and direct further interventions and studies based on their recommendations. Arrangements were made for this. Patient understands and all questions answered. Coding Level of Care Code Est Pt Level 4 (73235) Diagnoses Hypercalcemia E83.52
[2024-05-27 12:46] VITALS: BP 182/85; PULSE 69; BMI 33.6
== END 2024-05-27 13:10 | disposition home or self-care (01) ==
PROVIDERS: PCP Internal Medicine; Visit Provider Surgery
DX: E83.52 Hypercalcemia (principal)
CPT/HCPCS: 99213

== ENCOUNTER → 2024-05-27 11:59 | Outpatient (BNVA) | payer OTHER, SELFPAY | PROVIDERS: PCP Internal Medicine; Visit Provider Surgery | DX: E83.52 Hypercalcemia (principal) | CPT/HCPCS: 99212 ==

== ENCOUNTER → 2024-06-05 08:38 | Outpatient (BNV) | payer OTHER, SELFPAY | PROVIDERS: PCP Internal Medicine; Visit Provider Nurse Practitioner | DX: R06.02 Shortness of breath (principal); I49.3 Ventricular premature depolarization | CPT/HCPCS: 78452; 93016; 93018 ==

== ENCOUNTER → 2024-06-05 08:38 | Outpatient (REF) | payer OTHER, SELFPAY ==
--- NOTE | ~2024-06-05 | NM_ITS ---
Lexiscan Myocardial perfusion study Indication: Coronary artery disease Technique: The patient was brought in for a Lexiscan perfusion study on 06/05/2024 and was injected 0.4 mg of Lexiscan intravenously. Within a minute of this injection 30 mCi of sestamibi was given intravenously. Images were obtained using the SPECT gamma camera interlaced with the gating device. Images were obtained in supine position. Resting perfusion study was performed on 06/06/2024. Patient was administered 30 mCi of sestamibi intravenously at rest. Images were then obtained in supine position. Total DLP 117 mGy-cm. Images were processed with the software and compared side to side in short axis, horizontal long axis and vertical long axis views. Findings: Raw aquisition reviewed. The stress perfusion study showed absent tracer uptake in the mid to distal part of inferolateral wall as well as the inferior apex. No major change with CT attenuation correction. The gated study shows normal LV systolic function with calculated LVEF of 60%. LV cavity is normal in size. The gated study shows akinesis in the above segments. Resting study shows absent tracer uptake in the apical inferolateral wall and adjacent apex. Slightly improved uptake in the mid inferolateral wall compared to stress acquisition. Gating at rest reveals ejection fraction at 52%. Inferolateral akinesis in the about areas of perfusion defects. The findings are consistent with mostly fixed defect in the mid to distal inferolateral wall and adjacent apex with mild reversibility in the mid inferolateral wall. NM/VA cardiolite stress test Impression: 1. Myocardial perfusion imaging study shows transmural infarct involving mid to distal inferolateral wall and adjacent portions of apex with some ischemia in the midportion of inferolateral wall. 2. Gated LVEF is 60% during stress and 52% during rest; correlate with echocardiogram. 3. Transient ischemic dilatation not present. EKG component of the test reported separately. Electronically signed by: Zander May MD 06/06/2024 03:57 PM EDT
--- NOTE | 2024-06-05 08:38 | CA_ITS ---
Acquisition Time: 2024-06-05 09:22:15 Total Exercise Time: 00:03:46 Test Indications: CP Medications: SEE H Protocol: JOANNA Max HR: 127 BPM 76% of Pred: 165 BPM Max BP: 200/090 mmHG Max Work Load: 5.5 METS Exercise stress test exercise 3 min 46 sec of Joanna protocol achieving 76% MPHR, with moderate SOB, no chest discomfort, with isolated PVCs, with hypertensive response to exercise, with request to stop due to shortness of breath. Once blood pressure and breathing returned to baseline test changed to pharmacological stress test with Lexiscan. Pharmacolgical stress test with Lexiscan injection while sitting and kicking her legs, with 2/10 chest discomfort, with mild SOB, with isolated PVCs, with normotensive response to injection, with nondiagnoisitic EKGs. Aminophylline 75mg IVP given to reverse Lexiscan. Nuclear images pending. Chest discomfort, breathing, and blood pressure returned to baseline. Test reviewed with Dr. Milton. Referred By: Zander May Overread By: Arlene Weller
== END ==
LOC: HO.CARD 08:38
PROVIDERS: PCP Internal Medicine; Visit Provider Internal Medicine
DX: R07.2 Precordial pain (principal); I25.10 Atherosclerotic heart disease of native coronary artery without angina pectoris
CPT/HCPCS: 78452; 93017; A9500; J0280; J2785

== ENCOUNTER 2024-06-11 09:31 | Outpatient (AMB) | payer OTHER, SELFPAY ==
--- NOTE | 2024-06-11 09:54 | AM.OFFVISNUR ---
Intake Visit Reasons: Hep-B vaccine Allergies cephalexin [From KEFLEX] Allergy (Intermediate, Verified 05/27/24 12:48) HIVES Assessment & Plan Assessment & Plan Orders: Orders Hepatitis B Adult Immunization Today Z23 - Encounter for immunization Medications: New Recombivax HB (PF) (hepatitis B virus vacc.rec(PF)) 1.0 mL IM ONCE 1 mL 0RF NS Z23 - Encounter for immunization
== END 2024-06-11 09:58 | disposition home or self-care (01) ==
PROVIDERS: PCP Internal Medicine; Visit Provider Internal Medicine
DX: Z23 Encounter for immunization (principal)
CPT/HCPCS: 90471; 90746

== ENCOUNTER 2024-06-19 09:34 | Outpatient (AMB) | payer OTHER, SELFPAY ==
[2024-06-19 10:20] VITALS: BP 148/72; PULSE 73; BMI 33.7
--- NOTE | 2024-06-19 10:20 | A.OFFVIS_ITS ---
Vital Signs 06/19/24 10:20 Height 5 ft 6 in Weight 208 lb 8.917 oz BMI 33.7 BP 148/72 H Blood Pressure Location Lt brachial Position Sitting Pulse 73 Pulse Source Pulse Oximeter Intake Visit Reasons: f/u Mibi stress-transplant clearance High Worker Required: No Accompanied by: Self / Same As Patient Allergies cephalexin [From KEFLEX] Allergy (Intermediate, Verified 05/27/24 12:48) HIVES Medication List - Last Reconciled 06/19/24 by Zander May MD acetic acid 2% 3 drps otic (ear) left TID alcohol swabs 1 pad topical TID 90 days amlodipine 10 mg PO DAILY aspirin 81 mg PO DAILY blood pressure monitor (Blood Pressure Kit) As directed blood sugar diagnostic (FreeStyle Lite Strips) 4 times a day dapagliflozin propanediol (Farxiga) 10 mg PO DAILY dicyclomine 20 mg PO QID ezetimibe 10 mg PO DAILY flash glucose scanning reader (Emulation and Verification EngineeringStyle Patrick 14 Day [place]) As directed flash glucose sensor (FreeStyle Patrick 14 Day Sensor kit) every 14 days FreeStyle Lite Meter (blood-glucose meter) 4 times a day NS glucose (Dex4 Glucose) 12 grams (3 x 4 gram) PO Q15M PRN insulin glargine U-300 conc (Toujeo Max U-300 SoloStar) 64 units (0.2133 mL) subcut DAILY 30 days insulin lispro 10-24 units20 units before meals (16 units light meals), + 2u for bg over 200, +4 unit bg >250, 10 u with snack. subcutaneously use as directed; 30 days lancets As directed 3x/day latanoprost 0.005% 1 drp ophthalmic (eye) BEDTIME lorazepam mg PO losartan 50 mg PO DAILY metoclopramide HCl (Reglan) 5 mg PO QIDACHS metoprolol succinate ER 200 mg PO DAILY omeprazole 20 mg PO DAILY pen needle, diabetic 5 times a day rosuvastatin 20 mg PO BEDTIME sennosides (Senna Laxative) 17.2 mg (2 x 8.6 mg) PO BEDTIME terconazole 0.8% 1 appful vaginal BEDTIME 3 days tramadol 50 mg PO Q6H PRN 30 days zolpidem 10 mg PO BEDTIME PRN 30 days HPI Comments Details: Phoebe returns for follow-up regarding various cardiac issues. 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 She was on anticoagulation with warfarin for a couple of years after that, but then stopped it as she did not want take anything. In March 2016, she was hospitalized once again for non ST elevation myocardial infarction and underwent cardiac catheterization and bare metal stenting to circumflex. Also carries a diagnosis of pulmonary embolism. Was on anticoagulation but not anymore. She has a long history of noncompliance. However, on various visits, she stated that she was back to being compliant but unclear if that is reliable or not. She is undergoing kidney transplant evaluation. Otherwise, no new cardiac symptoms. No angina or anything else. [facility] Medical History Type 2 diabetes mellitus with hyperglycemia Colon cancer screening Skin tag Atherosclerotic cardiovascular disease Calcific tendinitis of right shoulder Adhesive capsulitis of right shoulder Back pain Upper respiratory infection Arm pain Dizziness Type 2 diabetes mellitus with unspecified complications Dyspnea on exertion SOB (shortness of breath) Gastroparesis Headache On anticoagulant therapy Hidradenitis suppurativa Pulmonary embolism Type 2 diabetes mellitus with chronic kidney disease Precordial chest pain Vitamin D deficiency HTN (hypertension) On beta jacqueline at home Axillary hidradenitis suppurativa Proliferative diabetic retinopathy associated with type 2 diabetes mellitus Diabetic polyneuropathy associated with type 2 diabetes mellitus Diabetic nephropathy associated with type 2 diabetes mellitus FPC (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 pylori infection Anxiety and depression Acute angle-closure glaucoma CVA (cerebral vascular accident) GERD (gastroesophageal reflux disease) Hypertension Coronary artery disease Hypercholesterolemia Obesity (BMI 30-39.9) Surgical History History of hysterectomy History of surgery (03/21/23) Hx of excision of mass History of axillary surgery History of axillary surgery (08/21/20) History of esophagogastroduodenoscopy (EGD) History of angioplasty History of cardiac catheterization (~03/30/16) S/P LILY-BSO History of endometrial ablation Amputation of right index finger History of tubal ligation Family History Mother Type 2 diabetes mellitus Hypertension Maternal Grandmother Myocardial infarction Paternal Grandmother History of breast cancer Social History Household Members: None Housing: Apartment Are you a primary vehicle care specialist to a significant other at home: No Do you presently have visiting nurse or other home services: No Alcohol intake: never Comment: medicated, see MAR Patient Tobacco Use Status: Former Tobacco user Tobacco use type: Cigarette e-Cigarette/Vaping Use: Never Used Second Hand Smoke Exposure: No Substance Use Type: Marijuana service: No Current occupational status: unemployed Cognitive needs: No Hearing needs: Yes (partially deaf ) Vision needs: Yes Review of Systems Const Denies chills, Denies fatigue, Denies fever(s), Denies weight gain and Denies weight loss ENT Denies dizziness Card Denies chest pain, Denies leg edema, Denies lightheadedness, Denies palpitations, Denies dyspnea on exertion, Denies orthopnea and Denies other Resp Denies cough and Denies dyspnea on exertion GI Denies hematochezia and Denies change in stool character Musc Denies abnormal gait, Denies muscle weakness, Denies numbness, Denies radiating pain into limb and Denies tingling Neuro Denies abnormal gait, Denies dizziness, Denies numbness and Denies tingling Endo Denies fatigue and Denies palpitations Physical Exam Vital Signs: Last Vital Signs Pulse 73 06/19/24 10:20 BP 148/72 H 06/19/24 10:20 BMI result Body Mass Index 33.7 Const General: comfortable and no acute distress Orientation/consciousness: patient oriented x3 HEENT Other: Unremarkable Head: Yes normal to inspection Neck Neck: Yes normal visual inspection Chest Chest palpation & inspection: normal inspection of the chest Resp Auscultation: clear to auscultation bilaterally Cardio Palpation: normal PMI Heart sounds: S1 normal heart sound present, S2 normal heart sound present, no gallops, no murmurs and no rubs GI Palpation (GI): Soft to palpation Back/Spine/Pelvis Other: unremarkable Skin General skin exam: no rashes or lesions noted Neuro General: patient oriented x3 Extrem General: Yes normal to inspection Psych Mental Status: mental status grossly normal Assessment & Plan Assessment & Plan (1) Atherosclerotic cardiovascular disease: Code(s): I25.10 - Atherosclerotic heart disease of [place] coronary artery without angina pectoris Category: Medical Plan: Cardiac catheterization from 2016 reviewed. She had distal circumflex 100% stenosis with evidence of thrombus. Bare metal stent placed due to noncompliance. There was moderate stenosis in the mid LAD. Chronic dissection in the distal left anterior still seen. In the most recent echocardiogram, LVEF was described to be low at 35-40% with wall motion abnormalities consistent with ischemic heart disease. In the previous echocardiogram, LVEF was 54% but on review of images, there was no major change. Myocardial perfusion imaging study shows transmural infarct in the mid to distal inferolateral wall/adjacent apex with some ischemia in the mid inferolateral wall. Clinically, no overt angina. Mainly risk factor modification with medications including aspirin, statins, Zetia. Compliance also plays a major role. Cholesterol levels are up and down. (2) Coronary artery dissection: Code(s): I25.42 - Coronary artery dissection Category: Medical Plan: Stable. (3) Apical mural thrombus: Code(s): I51.3 - Intracardiac thrombosis, not elsewhere classified Category: Medical Plan: She was on warfarin in the past several years ago. In the last echocardiogram, no thrombus noted. (4) Cerebrovascular accident, embolic: Code(s): I63.9 - Cerebral infarction, unspecified Category: Medical Qualifiers: Precerebral and cerebral artery: unspecified cerebral artery Qualified Code(s): I63.40 - Cerebral infarction due to embolism of unspecified cerebral artery Plan: No residual deficit. (5) Essential hypertension: Code(s): I10 - Essential (primary) hypertension Category: Medical Plan: Slightly high. No specific changes made today. (6) Type 2 diabetes mellitus with unspecified complications: Code(s): E11.8 - Type 2 diabetes mellitus with unspecified complications Category: Medical Plan: Hemoglobin A1c is 9.2%. Generally high levels on various checks suggesting poor control. We have discussed this numerous times including today. (7) Chronic kidney disease: Code(s): N18.9 - Chronic kidney disease, unspecified Category: Medical Plan: Last creatinine is 2.78. Undergoing transplant evaluation. (8) Preoperative cardiovascular examination: Code(s): Z01.810 - Encounter for preprocedural cardiovascular examination Category: Medical Plan: Based on her poorly controlled risk factors as well as known cardiac history, noncompliance, high cardiac risk for kidney transplant surgery. Alecia-operative complications including myocardial infarction discussed today with patient. Coding Level of Care Code Est Pt Level 5 (59698) Diagnoses Atherosclerotic cardiovascular disease I25.10 Coronary artery dissection I25.42 Apical mural thrombus I51.3 Cerebrovascular accident (CVA) due to embolism of cerebral artery I63.40 Precerebral and cerebral artery: unspecified cerebral artery Essential hypertension I10 Type 2 diabetes mellitus with unspecified complications E11.8 Chronic kidney disease N18.9 Preoperative cardiovascular examination Z01.810
== END 2024-06-19 10:45 | disposition home or self-care (01) ==
PROVIDERS: PCP Internal Medicine; Visit Provider Internal Medicine
DX: I25.10 Atherosclerotic heart disease of native coronary artery without angina pectoris (principal); I25.42 Coronary artery dissection; I51.3 Intracardiac thrombosis, not elsewhere classified; I12.9 Hypertensive chronic kidney disease with stage 1 through stage 4 chronic kidney disease, or unspecified chronic kidney disease; E11.22 Type 2 diabetes mellitus with diabetic chronic kidney disease; N18.9 Chronic kidney disease, unspecified; Z01.810 Encounter for preprocedural cardiovascular examination; Z86.73 Personal history of transient ischemic attack (TIA), and cerebral infarction without residual deficits
CPT/HCPCS: 99215

== ENCOUNTER → 2024-06-19 09:34 | Outpatient (BNVA) | payer OTHER, SELFPAY | PROVIDERS: PCP Internal Medicine; Visit Provider Internal Medicine | DX: Z01.810 Encounter for preprocedural cardiovascular examination (principal); I25.10 Atherosclerotic heart disease of native coronary artery without angina pectoris; I25.42 Coronary artery dissection; I51.3 Intracardiac thrombosis, not elsewhere classified; I63.40 Cerebral infarction due to embolism of unspecified cerebral artery; E11.8 Type 2 diabetes mellitus with unspecified complications; E11.22 Type 2 diabetes mellitus with diabetic chronic kidney disease; I12.9 Hypertensive chronic kidney disease with stage 1 through stage 4 chronic kidney disease, or unspecified chronic kidney disease; N18.9 Chronic kidney disease, unspecified | CPT/HCPCS: 99212 ==

== ENCOUNTER 2024-07-04 14:56 | Outpatient (AMB) | payer OTHER, SELFPAY ==
--- NOTE | 2024-07-04 14:28 | HO.NEPHOV_ITS ---
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 She has stage IV CKD. Serum creatinine has been stable for the last several months. She is here for regular follow-up. She has history of recurrent hyperkalemia, this has been controlled since reducing losartan dose, she currently takes 50mg daily and is tolerating well. she reports some lower extremity swelling she states she has been eating canned soups with salt, though does make an effort to avoid salt with other meals and does a lot of cooking herself she notes some orthopnea at night, props herself up with her adjustable bed and manages well with this. She denies exertional dyspnea. she is drinking lots of fluids to stay well hydrated she states she has been more fatigued over the last several months she notes leg cramping that has worsened She was seen by general surgery for management of hypercalcemia and enlarged parathyroid gland on recent imaging. per surgery, given unclear if multiple hyperplasia or parathyroid source of hypercalcemia, she has been referred for formal endocrine evaluation, she is awaiting this appointment. she has been referred for transplant evaluation. She has also seen the dialysis educator. Pt is leaning toward HD rather than home dialysis should she need it. [facility] Medical History Type 2 diabetes mellitus with hyperglycemia Colon cancer screening Skin tag Atherosclerotic cardiovascular disease Calcific tendinitis of right shoulder Adhesive capsulitis of right shoulder Back pain Upper respiratory infection Arm pain Dizziness Type 2 diabetes mellitus with unspecified complications Dyspnea on exertion SOB (shortness of breath) Gastroparesis Headache On anticoagulant therapy Hidradenitis suppurativa Pulmonary embolism Type 2 diabetes mellitus with chronic kidney disease Precordial chest pain Vitamin D deficiency HTN (hypertension) On beta jacqueline at home Axillary hidradenitis suppurativa Proliferative diabetic retinopathy associated with type 2 diabetes mellitus Diabetic polyneuropathy associated with type 2 diabetes mellitus Diabetic nephropathy associated with type 2 diabetes mellitus 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 pylori infection Anxiety and depression Acute angle-closure glaucoma CVA (cerebral vascular accident) GERD (gastroesophageal reflux disease) Hypertension Coronary artery disease Hypercholesterolemia Obesity (BMI 30-39.9) Surgical History History of hysterectomy History of surgery (03/21/23) Hx of excision of mass History of axillary surgery History of axillary surgery (08/21/20) History of esophagogastroduodenoscopy (EGD) History of angioplasty History of cardiac catheterization (~03/30/16) S/P LILY-BSO History of endometrial ablation Amputation of right index finger History of tubal ligation Family History Mother Type 2 diabetes mellitus Hypertension Maternal Grandmother Myocardial infarction Paternal Grandmother History of breast cancer Social History Household Members: None Housing: Apartment Are you a primary health care coach to a significant other at home: No Do you presently have visiting nurse or other home services: No Alcohol intake: never Comment: medicated, see MAR Patient Tobacco Use Status: Former Tobacco user Tobacco use type: Cigarette e-Cigarette/Vaping Use: Never Used Second Hand Smoke Exposure: No Substance Use Type: Marijuana service: No Current occupational status: unemployed Cognitive needs: No Hearing needs: Yes (partially deaf ) Vision needs: Yes Review of Systems Const Denies anorexia, Reports fatigue, Denies fever(s) and Denies weakness Card Denies no additional complaints, Denies chest pain, Denies dyspnea on exertion and Reports orthopnea Resp Reports no additional complaints and Denies dyspnea on exertion GI Reports no additional complaints, Denies abdominal pain and Denies diarrhea Denies hematuria, Denies nocturia and Denies dysuria Musc Reports muscle cramps (lower extremity muscle cramps) and Denies tingling Skin/Breast Denies rash Neuro Denies tingling, Denies tremor(s) and Denies weakness Psych Reports anxiety Endo Reports fatigue Physical Exam Vital Signs: Last Vital Signs Pulse 74 07/04/24 14:59 BP 146/92 H 07/04/24 15:19 Pulse Ox 98 07/04/24 14:59 Oxygen Delivery Method Room Air 07/04/24 14:59 BMI result Body Mass Index 32.8 Const Other: General: No acute distress, well-appearing. Neck: No lymphadenopathy, no thyromegaly. No JVD. Resp: Clear to auscultation bilaterally. Cardio: Regular rate, regular rhythm; Heart sounds: S1 normal heart sound present and S2 normal heart sound present. No JVD. trace ankle edema. GI: soft, non-tender, no guarding. : No CVA tenderness. Skin: no rashes or lesions noted Neuro: Alert, oriented to person, place, time. Moves all extremities spontaneously. No tremor or asterixis. General: comfortable and no acute distress Orientation/consciousness: oriented to person, oriented to place and oriented to time Neck Neck: Yes no JVD Resp Effort & Inspection: able to speak in complete sentences Auscultation: clear to auscultation bilaterally Cardio Jugular venous distension: no JVD Palpation: no palpable S3 and no palpable S4 Rate: regular rate Rhythm: regular rhythm Heart sounds: S1 normal heart sound present and S2 normal heart sound present GI Inspection: Yes normal to inspection Palpation (GI): Soft to palpation Rectal Exam - Female: No tenderness General: Yes no CVA tenderness Back/Spine/Pelvis Back: no CVA tenderness Skin General skin exam: no petechiae and no purpura Rashes: no rashes Neuro General: oriented to person, oriented to place and oriented to time Extrem General: Yes normal to inspection and Yes edema (trace BLE edema.) Results Reviewed Nephrology Results: Hgb 15.5 g/dl (12.0-16.0) 07/04/24 WBC 10.1 X10*3/uL (4.8-10.8) 07/04/24 Plt Count 212 X10*3/uL (160-400) 07/04/24 Sodium 137 mmol/L (135-145) 07/04/24 Potassium 4.2 mmol/L (3.3-5.1) 07/04/24 Chloride 113 mmol/L (96-108) H 07/04/24 Carbon Dioxide 14 mmol/L (22-29) L 07/04/24 BUN 40 mg/dL (9-16) H 07/04/24 Creatinine 3.38 mg/dL (0.5-1.4) H 07/04/24 Calcium 10.4 mg/dL (8.4-10.2) H 07/04/24 Phosphorus 2.4 mg/dL (2.7-4.5) L 07/04/24 Assessment & Plan Assessment & Plan (1) Chronic kidney disease, stage 4 (severe): Code(s): N18.4 - Chronic kidney disease, stage 4 (severe) Category: Medical (2) Hyperparathyroidism: Code(s): E21.3 - Hyperparathyroidism, unspecified Category: Surgical (3) Essential hypertension: Code(s): I10 - Essential (primary) hypertension Category: Medical (4) Diabetic nephropathy associated with type 2 diabetes mellitus: Code(s): E11.21 - Type 2 diabetes mellitus with diabetic nephropathy Category: Medical Plan Jaclyn has stage IV CKD due to underlying diabetic nephropathy. Renal function is at baseline/stable. Goal is to slow the progression of renal disease. Continue to avoid nephrotoxic agents including NSAIDs. Encouraged her to stand low-sodium diet. Hemoglobin A1c should be maintained less than 7%. Most recent was 9.2%. She is amenable to working on healthy diet and reducing sugar/simple carbohydrates. Blood pressure slightly elevated today, pt states she is very nervous and is normally well-controlled. Will not make any changes today and will re-check in 6 weeks. She is working on getting a blood pressure cuff. We discussed importance of weight loss as well. She has no evidence of anemia. Hemoglobin was 15.7 in April. Recurrent hypercalcemia, most recent 10.6 in April Intact PTH has been progressively increasing. has primary hyperparathyroidism. parathyroid scan shows adenoma Refered to surgeon for possible parathyroidectomy- per surgery, given unclear if multiple hyperplasia or parathyroid source of hypercalcemia, she has been referred for formal endocrine evaluation. Pt continue to work on hydrating well, low sodium diet as well as minmizing potassium in her diet. she will work on exercise and weight loss she has been referred her for preemptive renal transplant evaluation. - work up inprogress. She has seen a dialysis nurse educator and leaning toward intermittent HD vs home PD, but will continue to consider. From a renal stand point , No absolute contraindication for parathyroidectomy surgery Orders: Orders Complete Blood Count Auto Diff 07/04/24 N18.4 - Chronic kidney disease, stage 4 (severe) Basic Metabolic Panel 07/04/24 N18.30 - Chronic kidney disease, stage 3 unspecified Coding Level of Care Code Est Pt Level 4 (10363) Diagnoses Chronic kidney disease, stage 4 (severe) N18.4 Hyperparathyroidism E21.3 Essential hypertension I10 Diabetic nephropathy associated with type 2 diabetes mellitus E11.21
[2024-07-04 14:59] VITALS: BP 176/90; PULSE 74; O2SAT 98; BMI 32.8
[2024-07-04 15:19] VITALS: BP 146/92
== END 2024-07-04 15:36 | disposition home or self-care (01) ==
PROVIDERS: PCP Internal Medicine; Visit Provider Internal Medicine Hypertension Specialist
DX: I12.9 Hypertensive chronic kidney disease with stage 1 through stage 4 chronic kidney disease, or unspecified chronic kidney disease (principal); E11.22 Type 2 diabetes mellitus with diabetic chronic kidney disease; N18.4 Chronic kidney disease, stage 4 (severe); E21.3 Hyperparathyroidism, unspecified
CPT/HCPCS: 99214

== ENCOUNTER 2024-07-04 14:56 | Outpatient (REF) | payer OTHER, SELFPAY ==
[2024-07-04 16:08] LABS: MANUAL DIFF FLAG NO
[2024-07-04 18:14] LABS: Basophils Absolute Auto 0.1 X10*3/uL (0.0-0.2); Basophils Percent Auto 0.7 % (0-2); Eosinophils Absolute Auto 0.1 X10*3/uL (0.0-0.4); Eosinophils Percent Auto 1.1 % (0-4); Hematocrit 48.6 % (37.0-47.0); Hemoglobin 15.5 g/dl (12.0-16.0); Imm Gran Abs Auto 0.03 X10*3/uL (0.00-0.03); Imm Gran Pct Auto 0.3 % (0.0-0.4); Lymphocytes Absolute Auto 2.1 X10*3/uL (1.2-4.9); Lymphocytes Percent Auto 20.7 % (20-40); Mean Corpuscular HGB Conc 31.9 g/dl (31.0-35.0); Mean Corpuscular Hemoglobin 26.5 pg (27.0-33.0); Mean Corpuscular Volume 83.1 fL (80.0-98.0); Mean Platelet Volume 12.7 fL (9.4-12.3); Monocytes Absolute Auto 0.9 X10*3/uL (0.1-1.2); Monocytes Percent Auto 8.5 % (2-11); Neutrophils Absolute Auto 6.9 x10*3/uL (2.0-8.3); Neutrophils Percent Auto 68.7 % (45-73); Platelet Count 212 X10*3/uL (160-400); Red Blood Count 5.85 X10*6/uL (4.20-5.50); Red Cell Distribution Width 14.6 % (11.0-16.0); White Blood Count 10.1 X10*3/uL (4.8-10.8)
[2024-07-04 18:35] LABS: Anion Gap 14 (12-20); Blood Urea Nitrogen 40 mg/dL (9-16); Calcium 10.4 mg/dL (8.4-10.2); Carbon Dioxide 14 mmol/L (22-29); Chloride 113 mmol/L (96-108); Estimated Glomerular Filt Rate 14; Glucose Random 87 mg/dL (60-115); Phosphorus 2.4 mg/dL (2.7-4.5); Potassium 4.2 mmol/L (3.3-5.1); Sodium 137 mmol/L (135-145)
[2024-07-10 17:34] LABS: Parathyroid Hormone Related Pr 17 pg/mL (11-20)
== END 2024-07-04 14:57 | disposition home or self-care (01) ==
LOC: HO.LAB 14:56
PROVIDERS: PCP Internal Medicine; Visit Provider Internal Medicine Hypertension Specialist
DX: N18.4 Chronic kidney disease, stage 4 (severe) (principal); E83.52 Hypercalcemia; I10 Essential (primary) hypertension; E11.21 Type 2 diabetes mellitus with diabetic nephropathy
CPT/HCPCS: 36415; 80048; 83519; 84100; 85025; 99212

== ENCOUNTER 2024-07-16 09:32 | Outpatient (AMB) | payer OTHER, SELFPAY ==
--- NOTE | 2024-07-16 09:47 | AM.OFFVISNUR ---
Intake Visit Reasons: Flu shot Allergies cephalexin [From KEFLEX] Allergy (Intermediate, Verified 05/27/24 12:48) HIVES Office Procedures Flu Questionnaire Does the patient have a severe egg allergy?: No Does the patient have severe life threatening allergies?: No Does the patient have a fever or illness today?: No Has the patient ever had Guillain-Torrington Syndrome?: No Has the patient ever had any past reaction to a flu shot?: No Assessment & Plan Assessment & Plan Orders: Orders Influenza [id number] Immunization Today Z23 - Encounter for immunization Medications: New Fluarix Triv [id number] (PF) (flu vacc [id number] 6mos up(PF)) 0.5 mL IM ONCE 0.5 mL 0RF NS Z23 - Encounter for immunization
== END 2024-07-16 09:49 | disposition home or self-care (01) ==
PROVIDERS: PCP Internal Medicine; Visit Provider Internal Medicine
DX: Z23 Encounter for immunization (principal)

== ENCOUNTER → 2024-07-16 09:32 | Outpatient (BNVA) | payer OTHER, SELFPAY | PROVIDERS: PCP Internal Medicine; Visit Provider Internal Medicine | DX: Z23 Encounter for immunization (principal) | CPT/HCPCS: 90471; 90656 ==

== ENCOUNTER 2024-07-17 10:27 | Outpatient (REF) | payer OTHER, SELFPAY ==
--- NOTE | ~2024-07-17 | US_ITS ---
EXAMINATION: US PELVIS CLINICAL INFORMATION: Mass of right ovary COMPARISON: Pelvic ultrasound of 04/27/2017 TECHNIQUE: Ultrasound of the pelvis is performed using both transabdominal and transvaginal transducers along with Doppler. Transvaginal imaging is performed due to inadequate visualization transabdominally. FINDINGS: The uterus is surgically absent. Left ovary is not visualized. There is a structure documented by the employee relations assistant in the right adnexa measuring 2.9 x 1.8 x 2.2 cm without definite demonstratable internal vascularity. No adnexal mass is seen otherwise. No free fluid. US/US pelvic and transvaginal IMPRESSION: A structure documented in the right adnexa may or may not represent right ovary. Alternatively finding could represent bowel loop. No adnexal mass is noted otherwise. Consider pelvic MRI with contrast for more detailed and conclusive evaluation of the ovaries and adnexa. Electronically signed by: Oral Sue MD 07/17/2024 05:23 PM EDT
== END 2024-07-17 10:28 | disposition home or self-care (01) ==
LOC: HO.US 10:27
PROVIDERS: PCP Internal Medicine; Visit Provider Internal Medicine
DX: N83.8 Other noninflammatory disorders of ovary, fallopian tube and broad ligament (principal)
CPT/HCPCS: 76830; 76856

== ENCOUNTER 2024-07-23 09:42 | Outpatient (AMB) | payer OTHER, SELFPAY ==
--- NOTE | 2024-07-23 10:25 | AM.OFFVISNUR ---
Intake Visit Reasons: Hep-B Allergies cephalexin [From KEFLEX] Allergy (Intermediate, Verified 05/27/24 12:48) HIVES Assessment & Plan Assessment & Plan Orders: Orders Hepatitis B Adult Immunization Today Z23 - Encounter for immunization Medications: New Recombivax HB (PF) (hepatitis B virus vacc.rec(PF)) 1.0 mL IM ONCE 1 mL 0RF immunization due NS Z23 - Encounter for immunization
== END 2024-07-23 10:31 | disposition home or self-care (01) ==
PROVIDERS: PCP Internal Medicine; Visit Provider Internal Medicine
DX: Z23 Encounter for immunization (principal)

== ENCOUNTER → 2024-07-23 09:42 | Outpatient (BNVA) | payer OTHER, SELFPAY | PROVIDERS: PCP Internal Medicine; Visit Provider Internal Medicine | DX: Z23 Encounter for immunization (principal) | CPT/HCPCS: 90471; 90746 ==

== ENCOUNTER 2024-07-26 10:43 | Outpatient (REF) | payer OTHER, SELFPAY ==
[2024-07-26 12:19] LABS: Alanine Aminotransferase 16 U/L (0-31); Albumin Level 3.7 g/dL (3.5-5.0); Alkaline Phosphatase 86 U/L (39-117); Anion Gap 10 (12-20); Aspartate Amino Transferase 19 U/L (5-31); Bilirubin Total 0.3 mg/dL (0.0-1.0); Blood Urea Nitrogen 45 mg/dL (9-16); Calcium 10.3 mg/dL (8.4-10.2); Carbon Dioxide 22 mmol/L (22-29); Chloride 110 mmol/L (96-108); Cholesterol 185 mg/dL (<200); Estimated Glomerular Filt Rate 16; Glucose Random 128 mg/dL (60-115); HDL Cholesterol 43 mg/dL (>40); LDL Cholesterol Calculated 118 mg/dL (<100); Potassium 4.4 mmol/L (3.3-5.1); Sodium 138 mmol/L (135-145); Total Protein 7.2 g/dL (6.5-8.0); Triglycerides 124 mg/dL (<150)
[2024-07-26 12:34] LABS: Estimated Average Glucose 197 mg/dL; Hemoglobin A1C 332.1013 umol/L; Hemoglobin A1c % 8.5 % (<6.0); Total Hemoglobin (HGBA1C) 4794.9986 umol/L
== END 2024-07-26 10:44 | disposition home or self-care (01) ==
LOC: HO.LAB 10:43
PROVIDERS: PCP Internal Medicine; Visit Provider Internal Medicine
DX: E11.65 Type 2 diabetes mellitus with hyperglycemia (principal); E78.00 Pure hypercholesterolemia, unspecified; Z79.4 Long term (current) use of insulin
CPT/HCPCS: 36415; 80053; 80061; 83036

== ENCOUNTER 2024-08-20 15:49 | Outpatient (AMB) | payer OTHER, SELFPAY ==
[2024-08-20 15:52] VITALS: BP 152/84; PULSE 75; O2SAT 98; BMI 32.6
--- NOTE | 2024-08-20 15:52 | HO.NEPHOV_ITS ---
Vital Signs 08/20/24 15:52 08/20/24 16:01 Height 5 ft 6 in Weight 202 lb BMI 32.6 BP 152/84 H 130/80 Blood Pressure Location Rt brachial Lt brachial Position Sitting Sitting Pulse 75 Pulse Source Pulse Oximeter Pulse Oximetry (%) 98 Oxygen Delivery Method Room Air Intake Visit Reasons: CKD/ Conf Residential Support Specialist Required: No Accompanied by: Self / Same As Patient Allergies cephalexin [From KEFLEX] Allergy (Intermediate, Verified 08/20/24 15:54) HIVES Medication List - Last Reconciled 08/20/24 by Ramin Johnston MD acetic acid 2% 3 drps otic (ear) left TID alcohol swabs 1 pad topical TID 90 days amlodipine 10 mg PO DAILY aspirin 81 mg PO DAILY blood pressure monitor (Blood Pressure Kit) As directed blood sugar diagnostic (FreeStyle Lite Strips) 4 times a day dapagliflozin propanediol (Farxiga) 10 mg PO DAILY dicyclomine 20 mg PO QID ezetimibe 10 mg PO DAILY flash glucose scanning reader (LumiataStyle Patrick 14 Day Ferron) As directed flash glucose sensor (FreeStyle Patrick 14 Day Sensor kit) every 14 days FreeStyle Lite Meter (blood-glucose meter) 4 times a day NS glucose (Dex4 Glucose) 12 grams (3 x 4 gram) PO Q15M PRN insulin glargine U-300 conc (Toujeo Max U-300 SoloStar) 64 units (0.2133 mL) subcut DAILY 30 days insulin lispro 10-24 units20 units before meals (16 units light meals), + 2u for bg over 200, +4 unit bg >250, 10 u with snack. subcutaneously use as directed; 30 days lancets As directed 3x/day latanoprost 0.005% 1 drp ophthalmic (eye) BEDTIME lorazepam mg PO losartan 50 mg PO DAILY metoclopramide HCl (Reglan) 5 mg PO QIDACHS metoprolol succinate ER 200 mg PO DAILY omeprazole 20 mg PO DAILY peg 3350-electrolytes 236-22.74-6.74 -5.86 gram (Golytely) 240 mL PO Q10M 1 day pen needle, diabetic 5 times a day rosuvastatin 20 mg PO BEDTIME sennosides (Senna Laxative) 17.2 mg (2 x 8.6 mg) PO BEDTIME terconazole 0.8% 1 appful vaginal BEDTIME 3 days tramadol 50 mg PO Q6H PRN 30 days zolpidem 10 mg PO BEDTIME PRN 30 days HPI Comments Details: Jaclyn is a middle-aged woman with a history of longstanding diabetes mellitus complicated by CKD. She has stage IV CKD. Serum creatinine has been stable for the last several months. She is here for regular follow-up. She has history of recurrent hyperkalemia, this has been controlled since reducing losartan dose, she currently takes 50mg daily and is tolerating well. she reports some lower extremity swelling she states she has been eating canned soups with salt, though does make an effort to avoid salt with other meals and does a lot of cooking herself she notes some orthopnea at night, props herself up with her adjustable bed and manages well with this. She denies exertional dyspnea. she is drinking lots of fluids to stay well hydrated she states she has been more fatigued over the last several months she notes leg cramping that has worsened She was seen by general surgery for management of hypercalcemia and enlarged parathyroid gland on recent imaging. per surgery, given unclear if multiple hyperplasia or parathyroid source of hypercalcemia, she has been referred for formal endocrine evaluation, she is awaiting this appointment. she has been referred for transplant evaluation. She has also seen the dialysis educator. Pt is leaning toward HD rather than home dialysis should she need it. 08/20/24 Doing ok. Evaluated by Transplant [facility] Medical History Type 2 diabetes mellitus with hyperglycemia Colon cancer screening Skin tag Atherosclerotic cardiovascular disease Calcific tendinitis of right shoulder Adhesive capsulitis of right shoulder Back pain Upper respiratory infection Arm pain Dizziness Type 2 diabetes mellitus with unspecified complications Dyspnea on exertion SOB (shortness of breath) Gastroparesis Headache On anticoagulant therapy Hidradenitis suppurativa Pulmonary embolism Type 2 diabetes mellitus with chronic kidney disease Precordial chest pain Vitamin D deficiency HTN (hypertension) On beta jacqueline at home Axillary hidradenitis suppurativa Proliferative diabetic retinopathy associated with type 2 diabetes mellitus Diabetic polyneuropathy associated with type 2 diabetes mellitus Diabetic nephropathy associated with type 2 diabetes mellitus 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 pylori infection Anxiety and depression Acute angle-closure glaucoma CVA (cerebral vascular accident) GERD (gastroesophageal reflux disease) Hypertension Coronary artery disease Hypercholesterolemia Obesity (BMI 30-39.9) Surgical History History of hysterectomy History of surgery (03/21/23) Hx of excision of mass History of axillary surgery History of axillary surgery (08/21/20) History of esophagogastroduodenoscopy (EGD) History of angioplasty History of cardiac catheterization (~03/30/16) S/P LILY-BSO History of endometrial ablation Amputation of right index finger History of tubal ligation Family History Mother Type 2 diabetes mellitus Hypertension Maternal Grandmother Myocardial infarction Paternal Grandmother History of breast cancer Social History Household Members: None Housing: Apartment Are you a primary medicare compliance auditor to a significant other at home: No Do you presently have visiting nurse or other home services: No Alcohol intake: never Comment: medicated, see MAR Patient Tobacco Use Status: Former Tobacco user Tobacco use type: Cigarette e-Cigarette/Vaping Use: Never Used Second Hand Smoke Exposure: No Substance Use Type: Marijuana service: No Current occupational status: unemployed Cognitive needs: No Hearing needs: Yes (partially deaf ) Vision needs: Yes Physical Exam Vital Signs: Last Vital Signs Pulse 75 08/20/24 15:52 BP 130/80 08/20/24 16:01 Pulse Ox 98 08/20/24 15:52 Oxygen Delivery Method Room Air 08/20/24 15:52 BMI result Body Mass Index 32.6 Const General: comfortable; No acute distress Orientation/consciousness: patient oriented x3 Eyes General: appearance normal, both eyes and all related structures Visual Stanford: normal visual stanford by confrontation Neck Neck: Yes supple and Yes no JVD Resp Effort & Inspection: normal respiratory effort and respiratory effort not decreased Auscultation: rhonchi Cardio Palpation: no palpable S3 and no palpable S4 Heart sounds: no rubs GI Inspection: Yes normal to inspection Palpation (GI): Soft to palpation Percussion: Yes normal to percussion Auscultation: normal bowel sounds General: Yes no CVA tenderness Back/Spine/Pelvis Back: no CVA tenderness Skin General skin exam: no petechiae and no purpura Neuro General: patient oriented x3 and no focal motor deficits Extrem General: No clubbing and No edema Results Reviewed Nephrology Results: Hgb 15.5 g/dl (12.0-16.0) 07/04/24 WBC 10.1 X10*3/uL (4.8-10.8) 07/04/24 Plt Count 212 X10*3/uL (160-400) 07/04/24 Sodium 138 mmol/L (135-145) 07/26/24 Potassium 4.4 mmol/L (3.3-5.1) 07/26/24 Chloride 110 mmol/L (96-108) H 07/26/24 Carbon Dioxide 22 mmol/L (22-29) 07/26/24 BUN 45 mg/dL (9-16) H 07/26/24 Creatinine 3.11 mg/dL (0.5-1.4) H 07/26/24 Calcium 10.3 mg/dL (8.4-10.2) H 07/26/24 Phosphorus 2.4 mg/dL (2.7-4.5) L 07/04/24 Assessment & Plan Assessment & Plan (1) Chronic kidney disease, stage 4 (severe): Code(s): N18.4 - Chronic kidney disease, stage 4 (severe) Category: Medical (2) Hyperparathyroidism: Code(s): E21.3 - Hyperparathyroidism, unspecified Category: Surgical (3) Essential hypertension: Code(s): I10 - Essential (primary) hypertension Category: Medical (4) Diabetic nephropathy associated with type 2 diabetes mellitus: Code(s): E11.21 - Type 2 diabetes mellitus with diabetic nephropathy Category: Medical Plan Jaclyn has stage IV CKD due to underlying diabetic nephropathy. Renal function is at baseline/stable. Goal is to slow the progression of renal disease. Continue to avoid nephrotoxic agents including NSAIDs. Encouraged her to stand low-sodium diet. Hemoglobin A1c should be maintained less than 7%. Most recent was 9.2%. She is amenable to working on healthy diet and reducing sugar/simple carbohydrates. Blood pressure slightly elevated today, pt states she is very nervous and is normally well-controlled. Will not make any changes today and will re-check in 6 weeks. She is working on getting a blood pressure cuff. We discussed importance of weight loss as well. She has no evidence of anemia. Hemoglobin was 15.7 in April. Recurrent hypercalcemia, most recent 10.6 in April Intact PTH has been progressively increasing. has primary hyperparathyroidism. parathyroid scan shows adenoma Referred to surgeon for possible parathyroidectomy- per surgery, given unclear if multiple hyperplasia or parathyroid source of hypercalcemia, she has been referred for formal endocrine evaluation. preemptive renal transplant evaluation. -not a candidate Pelvic MRI ordered due to pelvic mass She has seen a dialysis nurse educator and leaning toward intermittent HD vs home PD, but will continue to consider. From a renal stand point , No absolute contraindication for parathyroidectomy surgery Orders: Orders Complete Blood Count no Diff 2 Months N18.4 - Chronic kidney disease, stage 4 (severe) Basic Metabolic Panel 2 Months N18.4 - Chronic kidney disease, stage 4 (severe) Parathyroid Hormone Intact 2 Months N18.4 - Chronic kidney disease, stage 4 (severe) Medications: Refilled losartan 50 mg PO DAILY 90 tabs 1RF Coding Level of Care Code Est Pt Level 4 (01273) Diagnoses Chronic kidney disease, stage 4 (severe) N18.4 Hyperparathyroidism E21.3 Essential hypertension I10 Diabetic nephropathy associated with type 2 diabetes mellitus E11.21
[2024-08-20 16:01] VITALS: BP 130/80
== END 2024-08-20 16:07 | disposition home or self-care (01) ==
PROVIDERS: PCP Internal Medicine; Visit Provider Internal Medicine Hypertension Specialist
DX: I12.9 Hypertensive chronic kidney disease with stage 1 through stage 4 chronic kidney disease, or unspecified chronic kidney disease (principal); E11.22 Type 2 diabetes mellitus with diabetic chronic kidney disease; N18.4 Chronic kidney disease, stage 4 (severe); E21.3 Hyperparathyroidism, unspecified
CPT/HCPCS: 99214

== ENCOUNTER → 2024-08-20 15:49 | Outpatient (BNVA) | payer OTHER, SELFPAY | PROVIDERS: PCP Internal Medicine; Visit Provider Internal Medicine Hypertension Specialist | DX: E11.22 Type 2 diabetes mellitus with diabetic chronic kidney disease (principal); I12.9 Hypertensive chronic kidney disease with stage 1 through stage 4 chronic kidney disease, or unspecified chronic kidney disease; N18.4 Chronic kidney disease, stage 4 (severe); E21.3 Hyperparathyroidism, unspecified; E11.21 Type 2 diabetes mellitus with diabetic nephropathy | CPT/HCPCS: 99212 ==

== ENCOUNTER → 2024-08-26 08:52 | Outpatient (BNV) | payer OTHER, SELFPAY | PROVIDERS: PCP Internal Medicine; Visit Provider Radiology Diagnostic Radiology | DX: N83.8 Other noninflammatory disorders of ovary, fallopian tube and broad ligament (principal) | CPT/HCPCS: 72197 ==

== ENCOUNTER 2024-08-26 09:11 | Outpatient (REF) | payer OTHER, SELFPAY ==
[2024-08-26] MEDS: gadobutroL 10 ML VIAL IVPUSH (10:29)
== END 2024-08-26 09:12 | disposition home or self-care (01) ==
LOC: HO.MRI 09:11
PROVIDERS: PCP Internal Medicine; Visit Provider Internal Medicine
DX: N83.8 Other noninflammatory disorders of ovary, fallopian tube and broad ligament (principal)
CPT/HCPCS: 72197; A9585

== ENCOUNTER 2024-09-03 08:32 | Outpatient (AMB) | payer OTHER, SELFPAY ==
[2024-09-03 08:41] VITALS: BP 140/88; PULSE 70; O2SAT 98; BMI 32.8
--- NOTE | 2024-09-03 08:41 | A.OFFPC_ITS ---
Vital Signs 09/03/24 08:41 Height 5 ft 6 in Weight 203 lb BMI 32.8 BP 140/88 H Blood Pressure Location Lt brachial Position Sitting Pulse 70 Pulse Source Pulse Oximeter Pulse Oximetry (%) 98 Oxygen Delivery Method Room Air Intake Visit Reasons: CKD, DM CAD Allergies cephalexin [From KEFLEX] Allergy (Intermediate, Verified 09/03/24 08:41) HIVES Tobacco use date assessed: 02/05/24 Dental Screening Dental Screen Date: 02/05/24 HPI CKD, DM CAD HPI Details 54-year-old obese female with uncontroll ed diabetes mellitus chronic kidney disease stage 4 coronary artery disease GERD hypertension hypercholesterolemia generalized anxiety disorder coming in for follow-up. Last seen in 04/27/2024. Patient also has parathyroid adenoma and was advised nuclear SPECT procedure. Meanwhile mammogram is up-to-date bone density is up-to-date. Patient has a scheduled colon test in October 2024. Patient did see Nephrology in August for chronic kidney disease due to underlying diabetic nephropathy advised avoiding nephrotoxic agents hemoglobin A1c need control has seen dialysis nurse educator not candidate for renal transplant. Patient had a CT of the chest in August 05 2024 showing few punctate pulmonary granulomas no suspicious pulmonary mass coronary artery atherosclerosis. Patient also had a CT of the abdomen and pelvis 06/28/2024 moderate atherosclerotic calcifications new soft tissue mass in the presacral region pelvic MR advised masslike soft tissue right common iliac bifurcation which may be retained right ovary. Patient had a PFT done also July 08 showing normal results. [facility] surgery notes for the parathyroid advised surgical parathyroidectomy. Cardiology notes June 19 most recent echocardiogram EF of 35-40% consistent with ischemic heart disease myocardial perfusion imaging transmural infarct mid to distal inferolateral wall adjacent apex with some ischemia in the mid inferolateral wall no angina. With the poor control of the diabetes known cardiac history noncompliance high cardiac risk for kidney transplant surgery. reschedule parathyroid 10/2024 due to taking the farxiga that needs to be stopped 3 days before. ENDO 09/2024 [facility] Medical History Type 2 diabetes mellitus with hyperglycemia Colon cancer screening Skin tag Atherosclerotic cardiovascular disease Calcific tendinitis of right shoulder Adhesive capsulitis of right shoulder Back pain Upper respiratory infection Arm pain Dizziness Type 2 diabetes mellitus with unspecified complications Dyspnea on exertion SOB (shortness of breath) Gastroparesis Headache On anticoagulant therapy Hidradenitis suppurativa Pulmonary embolism Type 2 diabetes mellitus with chronic kidney disease Precordial chest pain Vitamin D deficiency HTN (hypertension) On beta jacqueline at home Axillary hidradenitis suppurativa Proliferative diabetic retinopathy associated with type 2 diabetes mellitus Diabetic polyneuropathy associated with type 2 diabetes mellitus Diabetic nephropathy associated with type 2 diabetes mellitus 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 pylori infection Anxiety and depression Acute angle-closure glaucoma CVA (cerebral vascular accident) GERD (gastroesophageal reflux disease) Hypertension Coronary artery disease Hypercholesterolemia Obesity (BMI 30-39.9) Surgical History History of hysterectomy History of surgery (03/21/23) Hx of excision of mass History of axillary surgery History of axillary surgery (08/21/20) History of esophagogastroduodenoscopy (EGD) History of angioplasty History of cardiac catheterization (~03/30/16) S/P LILY-BSO History of endometrial ablation Amputation of right index finger History of tubal ligation Family History Mother Type 2 diabetes mellitus Hypertension Maternal Grandmother Myocardial infarction Paternal Grandmother History of breast cancer Social History Household Members: None Housing: Apartment Are you a primary direct care staffer to a significant other at home: No Do you presently have visiting nurse or other home services: No Alcohol intake: never Comment: medicated, see MAR Patient Tobacco Use Status: Former Tobacco user Tobacco use type: Cigarette e-Cigarette/Vaping Use: Never Used Second Hand Smoke Exposure: No Substance Use Type: Marijuana service: No Current occupational status: unemployed Cognitive needs: No Hearing needs: Yes (partially deaf ) Vision needs: Yes Questionnaire PHQ-9 Over the last 2 weeks, how often have you been bothered by any of the following problems? 1. Little interest or pleasure in doing things: several days 2. Feeling down, depressed, or hopeless: several days 3. Trouble falling or staying asleep, or sleeping too much: several days 4. Feeling tired or having little energy: several days 5. Poor appetite or overeating: several days 6. Feeling bad about yourself - or that you are a failure or have let yourself or your family down: not at all 7. Trouble concentrating on things, such as reading the newspaper or watching television: not at all 8. Moving or speaking so slowly that other people could have noticed. Or the opposite - being so fidgety or restless that you have been moving around a lot more than usual: not at all 9. Thoughts that you would be better off or of hurting yourself in some way: not at all Total score: 5 Depression Screening Interpretation: Positive Depression Screening Done: Yes 13051 - PHQ-9 Billing: Yes Source: Developed by Drs. Tushar Villar, Dinorah Ariza, Kobi Carver and colleagues, with an educational neto from [employer]. Thrive Questionnaire Date Thrive assessed: 02/05/24 AUDIT C Alcohol Use Questionnaire (AUDIT-C) 1. How often do you have a drink containing alcohol?: Never 3. How often do you have six or more drinks on one occasion?: Never Total Score: 0 BRAXTON-7 AMB Questionnaire BRAXTON-7 Date BRAXTON - 7 assessed: 02/05/24 Source: Developed by Drs. Tushar Villar, Dinorah Ariza, Kobi Carver and colleagues, with an educational neto from [employer]. Physical exam (Primary Care) Vital Signs: Last Vital Signs Pulse 70 09/03/24 08:41 BP 140/88 H 09/03/24 08:41 Pulse Ox 98 09/03/24 08:41 Oxygen Delivery Method Room Air 09/03/24 08:41 BMI result Body Mass Index 32.8 Tobacco/Smoking Status: Tobacco use Status Tobacco use date assessed 02/05/24 09/03/24 08:46 Patient Tobacco Use Status Former Tobacco user 09/03/24 08:46 Tobacco use type Cigarette 09/03/24 08:46 e-Cigarette/Vaping Use Never Used 09/03/24 08:46 PHQ-9: PHQ-9 Score PHQ-9: Total score 5 09/03/24 09:13 Depression Screening Interpretation: Positive Thrive Assessment: Date of Thrive Assessment Date Thrive assessed 02/05/24 09/03/24 08:46 Const General: alert; No acute distress Eyes Conjunctivae: conjunctivae normal Resp Auscultation: clear to auscultation bilaterally Cardio Rate: regular rate Rhythm: regular rhythm GI Inspection: Yes normal to inspection Extrem General: Yes normal to inspection and No edema Coding Level of Care Code Est Pt Level 4 (68151) Complex EM visit Add On G2211 Diagnoses Coronary artery disease involving [place] coronary artery of [place] heart without angina pectoris I25.10 Associated angina: without angina Coronary Disease-Associated Artery/Lesion type: [place] artery [place] vs. transplanted heart: [place] heart Essential hypertension I10 Moderate mixed hyperlipidemia not requiring statin therapy E78.2 Hyperlipidemia type: moderate mixed hyperlipidemia not requiring statin therapy Obesity (BMI 30-39.9) E66.9 Chronic kidney disease, stage 4 (severe) N18.4 Type 2 diabetes mellitus with hyperglycemia, with long-term current use of insulin E11.65; Z79.4 Diabetes mellitus long-term insulin use: with terminal clerk use Parathyroid adenoma D35.1 Generalized anxiety disorder F41.1 Right otitis media, unspecified otitis media type H66.91 Otitis media type: unspecified Additional Codes PHQ-9 - 12076 - PHQ-9 Billing: Yes ([id number]) Assessment & Plan Assessment & Plan (1) Coronary artery disease: Comment: stent placement March 2016, echo March 2019 normal LV function, impaired relaxation Chest pains on and off-not like when she had the MA. Sees Dr May. Intermediate risk for surgery. Code(s): I25.10 - Atherosclerotic heart disease of [place] coronary artery without angina pectoris Category: Medical Qualifiers: Associated angina: without angina Coronary Disease-Associated Artery/Lesion type: [place] artery [place] vs. transplanted heart: [place] heart Qualified Code(s): I25.10 - Atherosclerotic heart disease of [place] coronary artery without angina pectoris Plan: Control the cholesterol, weight, blood pressure, diabetes patient continues to follow-up with him cardiology presently on aspirin (2) Essential hypertension: Code(s): I10 - Essential (primary) hypertension Category: Medical Plan: Continue with blood pressure medication. Decrease salt intake and exercise on amlodipine 10 mg once a day losartan 50 mg once a day metoprolol 200 mg once a day (3) Hyperlipidemia, unspecified: Code(s): E78.5 - Hyperlipidemia, unspecified Category: Medical Qualifiers: Hyperlipidemia type: moderate mixed hyperlipidemia not requiring statin therapy Qualified Code(s): E78.2 - Mixed hyperlipidemia Plan: Avoid fried foods, chicken skin, eggs, butter margarine, pastries and meat. Be it pork or beef they have a lot of cholesterol LDL goal of less than 70 and triglyceride of less than 150 on rosuvastatin 20 mg once a day Zetia 10 mg once a day patient admits that has not been taking Zetia. Discussed the need to take this the need to get LDL below 70. (4) Obesity (BMI 30-39.9): Code(s): E66.9 - Obesity, unspecified Category: Medical Plan: Diet and exercise (5) Chronic kidney disease, stage 4 (severe): Code(s): N18.4 - Chronic kidney disease, stage 4 (severe) Category: Medical Plan: Patient continues to follow-up with Nephrology. Not renal transplant candidate. Preemptive discussion for dialysis (6) Type 2 diabetes mellitus with hyperglycemia: Comment: IDDM, Dr. Nguyen and Calista Code(s): E11.65 - Type 2 diabetes mellitus with hyperglycemia Category: Medical Qualifiers: Diabetes mellitus terminal clerk insulin use: with terminal clerk use Qualified Code(s): E11.65 - Type 2 diabetes mellitus with hyperglycemia; Z79.4 - terminal clerk (current) use of insulin Plan: Decrease the amount of carbohydrate intake, pasta, bread, rice and potatoes are all sugar and that is aside from all the sweet stuff, remember that fruits are good but they are Sweet also. Hemoglobin A1c goal of less than 6.5. On Farxiga 10 mg once a day glargine Toujeo 64 units once a day lispro sliding scale. Discussed with the patient to do food diary on anything that goes into her mouth. (7) Parathyroid adenoma: Code(s): D35.1 - Benign neoplasm of parathyroid gland Category: Medical Plan: Patient is being considered for parathyroidectomy (8) Generalized anxiety disorder: Code(s): F41.1 - Generalized anxiety disorder Category: Medical Plan: Continue with present medication (9) Otitis media of right ear: Code(s): H66.91 - Otitis media, unspecified, right ear Category: Medical Qualifiers: Otitis media type: unspecified Qualified Code(s): H66.91 - Otitis media, unspecified, right ear Plan: Antibiotic prescription sent in Orders: Orders Comprehensive Met. Panel 3 Months E78.2 - Mixed hyperlipidemia Lipid Panel 3 Months E78.00 - Pure hypercholesterolemia, unspecified, E78.2 - Mixed hyperlipidemia Reticulocyte Count 3 Months E78.2 - Mixed hyperlipidemia Complete Blood Count Auto Diff 3 Months E78.2 - Mixed hyperlipidemia Ferritin 3 Months E78.2 - Mixed hyperlipidemia Hemoglobin A1c 3 Months E78.2 - Mixed hyperlipidemia Vitamin B12 and Folate 3 Months E78.2 - Mixed hyperlipidemia Medications: New ezetimibe 10 mg PO DAILY 90 tabs 3RF fexofenadine (Gaby Allergy) 180 mg PO DAILY 30 tabs 1RF amoxicillin 875 mg (1.75 x 500 mg) PO BID 14 tabs 0RF
== END 2024-09-03 09:35 | disposition home or self-care (01) ==
PROVIDERS: PCP Internal Medicine; Visit Provider Internal Medicine
DX: I12.9 Hypertensive chronic kidney disease with stage 1 through stage 4 chronic kidney disease, or unspecified chronic kidney disease (principal); N18.4 Chronic kidney disease, stage 4 (severe); E11.65 Type 2 diabetes mellitus with hyperglycemia; Z79.4 Long term (current) use of insulin; I25.10 Atherosclerotic heart disease of native coronary artery without angina pectoris; E78.2 Mixed hyperlipidemia; E66.9 Obesity, unspecified; D35.1 Benign neoplasm of parathyroid gland; F41.1 Generalized anxiety disorder; H66.91 Otitis media, unspecified, right ear; Z68.32 Body mass index [BMI] 32.0-32.9, adult

== ENCOUNTER → 2024-09-03 08:32 | Outpatient (BNVA) | payer OTHER, SELFPAY | PROVIDERS: PCP Internal Medicine; Visit Provider Internal Medicine | DX: I25.10 Atherosclerotic heart disease of native coronary artery without angina pectoris (principal); E78.2 Mixed hyperlipidemia; I12.9 Hypertensive chronic kidney disease with stage 1 through stage 4 chronic kidney disease, or unspecified chronic kidney disease; E11.22 Type 2 diabetes mellitus with diabetic chronic kidney disease; N18.4 Chronic kidney disease, stage 4 (severe); E11.65 Type 2 diabetes mellitus with hyperglycemia; Z79.4 Long term (current) use of insulin; D35.1 Benign neoplasm of parathyroid gland; F41.1 Generalized anxiety disorder; H66.91 Otitis media, unspecified, right ear | CPT/HCPCS: 96127; 99212 ==

== ENCOUNTER 2024-10-11 11:26 | Outpatient (REF) | payer OTHER, SELFPAY ==
[2024-10-11 11:56] LABS: MANUAL DIFF FLAG NO
[2024-10-11 12:31] LABS: Basophils Percent Auto 0.5 % (0-2); Eosinophils Absolute Auto 0.1 X10*3/uL (0.0-0.4); Eosinophils Percent Auto 0.6 % (0-4); Hematocrit 43.3 % (37.0-47.0); Hemoglobin 13.9 g/dl (12.0-16.0); Imm Gran Abs Auto 0.03 X10*3/uL (0.00-0.03); Imm Gran Pct Auto 0.3 % (0.0-0.4); Lymphocytes Absolute Auto 1.4 X10*3/uL (1.2-4.9); Lymphocytes Percent Auto 16.3 % (20-40); Mean Corpuscular HGB Conc 32.1 g/dl (31.0-35.0); Mean Corpuscular Hemoglobin 26.3 pg (27.0-33.0); Mean Corpuscular Volume 81.9 fL (80.0-98.0); Mean Platelet Volume 11.5 fL (9.4-12.3); Monocytes Absolute Auto 0.6 X10*3/uL (0.1-1.2); Monocytes Percent Auto 6.9 % (2-11); Neutrophils Absolute Auto 6.5 x10*3/uL (2.0-8.3); Neutrophils Percent Auto 75.4 % (45-73); Platelet Count 247 X10*3/uL (160-400); Red Blood Count 5.29 X10*6/uL (4.20-5.50); Red Cell Distribution Width 14.3 % (11.0-16.0); White Blood Count 8.6 X10*3/uL (4.8-10.8)
[2024-10-11 13:08] LABS: Parathyroid Hormone Intact 605.6 pg/mL (8.7-77.1)
[2024-10-11 13:09] LABS: Anion Gap 11 (12-20); Blood Urea Nitrogen 50 mg/dL (9-16); Calcium 9.8 mg/dL (8.4-10.2); Carbon Dioxide 18 mmol/L (22-29); Chloride 111 mmol/L (96-108); Estimated Glomerular Filt Rate 15; Glucose Random 168 mg/dL (60-115); Potassium 4.3 mmol/L (3.3-5.1); Sodium 136 mmol/L (135-145)
== END 2024-10-11 11:27 | disposition home or self-care (01) ==
LOC: HO.LAB 11:26
PROVIDERS: PCP Internal Medicine; Visit Provider Internal Medicine Hypertension Specialist
DX: N18.4 Chronic kidney disease, stage 4 (severe) (principal)
CPT/HCPCS: 36415; 80048; 83970; 85025; 85027

== ENCOUNTER 2024-10-14 07:47 | Outpatient (REF) | payer OTHER, SELFPAY ==
--- NOTE | ~2024-10-14 | MM_ITS ---
EXAMINATION: MM DIAGNOSTIC DIGITAL BREAST TOMOSYNTHESIS, BILATERAL Limited left breast ultrasound. CLINICAL INFORMATION: Left breast pain COMPARISON: Mammography: Comparison is made with relevant prior exams. TECHNIQUE: Digital breast mammography with tomosynthesis is performed in both the craniocaudal and mediolateral oblique views along with computer-aided detection (CAD). Limited left breast ultrasound. FINDINGS: There are scattered areas of fibroglandular density (ACR BI-RADS breast composition Category b). BB marker in the lower central breast without underlying abnormality indicating site of patient's pain. There are no significant masses, abnormal calcifications, or other abnormalities. Targeted color Doppler ultrasound scanning from 40 8:00 demonstrates normal fibronodular breast tissue. There is no sonographic abnormality. Results are provided to the patient at time of visit by the technologist. MM/MM tomosynthesis diagnostic BI IMPRESSION: Left: No mammographic or sonographic abnormality to account for the patient's left breast pain. Recommend clinical evaluation and follow-up. Right: Negative. ASSESSMENT: BI-RADS BI-RADS 1 - Negative RECOMMENDATION: 1 year F/U This patient's information was entered into a reminder system with a target due date for their next mammogram. Electronically signed by: Reema Poe DO 10/14/2024 09:47 AM [facility]
== END 2024-10-14 07:48 | disposition home or self-care (01) ==
LOC: HO.MAMMO 07:47
PROVIDERS: PCP Internal Medicine; Visit Provider Advanced Practice Midwife
DX: N64.4 Mastodynia (principal); R92.322 Mammographic fibroglandular density, left breast; E11.21 Type 2 diabetes mellitus with diabetic nephropathy; I10 Essential (primary) hypertension; E21.3 Hyperparathyroidism, unspecified; N18.4 Chronic kidney disease, stage 4 (severe)
CPT/HCPCS: 76642; 77062; 77066; 99212

== ENCOUNTER → 2024-10-14 08:45 | Outpatient (BNV) | payer OTHER, SELFPAY | PROVIDERS: PCP Internal Medicine; Visit Provider Internal Medicine | DX: N64.4 Mastodynia (principal) | CPT/HCPCS: 76642; 77062; 77066 ==

== ENCOUNTER 2024-10-14 09:58 | Outpatient (AMB) | payer OTHER, SELFPAY ==
--- NOTE | 2024-10-14 09:59 | HO.NEPHOV_ITS ---
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: No Accompanied by: Self / Same As Patient Allergies cephalexin [From KEFLEX] Allergy (Intermediate, Verified 10/14/24 10:01) HIVES Medication List - Last Reconciled 10/14/24 by Ramin Johnston MD acetic acid 2% 3 drps otic (ear) left TID alcohol swabs 1 pad topical TID 90 days amlodipine 10 mg PO DAILY amoxicillin 875 mg (1.75 x 500 mg) PO BID aspirin 81 mg PO DAILY blood pressure monitor (Blood Pressure Kit) As directed blood sugar diagnostic (FreeStyle Lite Strips) 4 times a day dapagliflozin propanediol (Farxiga) 10 mg PO DAILY dicyclomine 20 mg PO QID ezetimibe 10 mg PO DAILY fexofenadine (Gaby Allergy) 180 mg PO DAILY flash glucose scanning reader (FreeStyle Patrick 14 Day [place]) As directed flash glucose sensor (FreeStyle Patrick 14 Day Sensor kit) every 14 days FreeStyle Lite Meter (blood-glucose meter) 4 times a day NS glucose (Dex4 Glucose) 12 grams (3 x 4 gram) PO Q15M PRN insulin glargine U-300 conc (Toujeo Max U-300 SoloStar) 64 units (0.2133 mL) subcut DAILY 30 days insulin lispro 10-24 units20 units before meals (16 units light meals), + 2u for bg over 200, +4 unit bg >250, 10 u with snack. subcutaneously use as directed; 30 days lancets As directed 3x/day latanoprost 0.005% 1 drp ophthalmic (eye) BEDTIME lorazepam mg PO losartan 50 mg PO DAILY metoclopramide HCl (Reglan) 5 mg PO QIDACHS metoprolol succinate ER 200 mg PO DAILY omeprazole 20 mg PO DAILY peg 3350-electrolytes 236-22.74-6.74 -5.86 gram (Golytely) 240 mL PO Q10M 1 day pen needle, diabetic 5 times a day rosuvastatin 20 mg PO BEDTIME sennosides (senna) 17.2 mg (2 x 8.6 mg) PO BEDTIME terconazole 0.8% 1 appful vaginal BEDTIME 3 days tramadol 50 mg PO Q6H PRN 30 days zolpidem 10 mg PO BEDTIME PRN 30 days HPI Comments Details: Jaclyn is a middle-aged woman with a history of longstanding diabetes mellitus complicated by CKD. She has stage IV CKD. Serum creatinine has been stable for the last several months. She is here for regular follow-up. She has history of recurrent hyperkalemia, this has been controlled since reducing losartan dose, she currently takes 50mg daily and is tolerating well. she reports some lower extremity swelling she states she has been eating canned soups with salt, though does make an effort to avoid salt with other meals and does a lot of cooking herself she notes some orthopnea at night, props herself up with her adjustable bed and manages well with this. She denies exertional dyspnea. she is drinking lots of fluids to stay well hydrated she states she has been more fatigued over the last several months she notes leg cramping that has worsened She was seen by general surgery for management of hypercalcemia and enlarged parathyroid gland on recent imaging. per surgery, given unclear if multiple hyperplasia or parathyroid source of hypercalcemia, she has been referred for formal endocrine evaluation, she is awaiting this appointment. she has been referred for transplant evaluation. She has also seen the dialysis educator. Pt is leaning toward HD rather than home dialysis should she need it. 08/20/24 Doing ok. Evaluated by Transplant 10/14/23 c/o low back pain - bilateral No urinary symptoms PFSH Medical History Type 2 diabetes mellitus with hyperglycemia Colon cancer screening Skin tag Atherosclerotic cardiovascular disease Calcific tendinitis of right shoulder Adhesive capsulitis of right shoulder Back pain Upper respiratory infection Arm pain Dizziness Type 2 diabetes mellitus with unspecified complications Dyspnea on exertion SOB (shortness of breath) Gastroparesis Headache On anticoagulant therapy Hidradenitis suppurativa Pulmonary embolism Type 2 diabetes mellitus with chronic kidney disease Precordial chest pain Vitamin D deficiency HTN (hypertension) On beta jacqueline at home Axillary hidradenitis suppurativa Proliferative diabetic retinopathy associated with type 2 diabetes mellitus Diabetic polyneuropathy associated with type 2 diabetes mellitus Diabetic nephropathy associated with type 2 diabetes mellitus 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 pylori infection Anxiety and depression Acute angle-closure glaucoma CVA (cerebral vascular accident) GERD (gastroesophageal reflux disease) Hypertension Coronary artery disease Hypercholesterolemia Obesity (BMI 30-39.9) Surgical History History of hysterectomy History of surgery (03/21/23) Hx of excision of mass History of axillary surgery History of axillary surgery (08/21/20) History of esophagogastroduodenoscopy (EGD) History of angioplasty History of cardiac catheterization (~03/30/16) S/P LILY-BSO History of endometrial ablation Amputation of right index finger History of tubal ligation Family History Mother Type 2 diabetes mellitus Hypertension Maternal Grandmother Myocardial infarction Paternal Grandmother History of breast cancer Social History Household Members: None Housing: Apartment Are you a primary family day care provider to a significant other at home: No Do you presently have visiting nurse or other home services: No Alcohol intake: never Comment: medicated, see MAR Patient Tobacco Use Status: Former Tobacco user Tobacco use type: Cigarette e-Cigarette/Vaping Use: Never Used Second Hand Smoke Exposure: No Substance Use Type: Marijuana service: No Current occupational status: unemployed Cognitive needs: No Hearing needs: Yes (partially deaf ) Vision needs: Yes Physical Exam Vital Signs: Last Vital Signs Pulse 69 10/14/24 10:00 BP 140/80 H 10/14/24 10:09 Pulse Ox 98 10/14/24 10:00 Oxygen Delivery Method Room Air 10/14/24 10:00 BMI result Body Mass Index 33.1 Comfortable Neck supple no JVD. Lungs entry equal no rales. Heart S1-S2 heard no gallop or rub. Abdomen soft nontender. Neuro alert awake oriented. No asterixis. Extremities no edema. Results Reviewed Nephrology Results: Hgb 13.9 g/dl (12.0-16.0) 10/11/24 WBC 8.6 X10*3/uL (4.8-10.8) 10/11/24 Plt Count 247 X10*3/uL (160-400) 10/11/24 Sodium 136 mmol/L (135-145) 10/11/24 Potassium 4.3 mmol/L (3.3-5.1) 10/11/24 Chloride 111 mmol/L (96-108) H 10/11/24 Carbon Dioxide 18 mmol/L (22-29) L 10/11/24 BUN 50 mg/dL (9-16) H 10/11/24 Creatinine 3.23 mg/dL (0.5-1.4) H 10/11/24 Calcium 9.8 mg/dL (8.4-10.2) 10/11/24 PTH Intact 605.6 pg/mL (8.7-77.1) H 10/11/24 Assessment & Plan Assessment & Plan (1) Chronic kidney disease, stage 4 (severe): Code(s): N18.4 - Chronic kidney disease, stage 4 (severe) Category: Medical (2) Hyperparathyroidism: Code(s): E21.3 - Hyperparathyroidism, unspecified Category: Surgical (3) Essential hypertension: Code(s): I10 - Essential (primary) hypertension Category: Medical (4) Diabetic nephropathy associated with type 2 diabetes mellitus: Code(s): E11.21 - Type 2 diabetes mellitus with diabetic nephropathy Category: Medical Plan Jaclyn has stage IV CKD due to underlying diabetic nephropathy. Renal function is at baseline/stable. Goal is to slow the progression of renal disease. Continue to avoid nephrotoxic agents including NSAIDs. Encouraged her to stand low-sodium diet. Hemoglobin A1c should be maintained less than 7%. Most recent was 9.2%. She is amenable to working on healthy diet and reducing sugar/simple carbohydrates. Blood pressure slightly elevated today, pt states she is very nervous and is normally well-controlled. Will not make any changes today and will re-check in 6 weeks. She is working on getting a blood pressure cuff. We discussed importance of weight loss as well. She has no evidence of anemia. Hemoglobin was 15.7 in April. Recurrent hypercalcemia, most recent 10.6 in April Intact PTH has been progressively increasing. has primary hyperparathyroidism. parathyroid scan shows adenoma Referred to surgeon for possible parathyroidectomy- per surgery, given unclear if multiple hyperplasia or parathyroid source of hypercalcemia, she has been referred for formal endocrine evaluation. preemptive renal transplant evaluation. -not a candidate Pelvic MRI ordered due to pelvic mass She has seen a dialysis nurse educator and leaning toward intermittent HD vs home PD, but will continue to consider. From a renal stand point , No absolute contraindication for parathyroidectomy surgery Orders: Orders Basic Metabolic Panel 2 Months N18.4 - Chronic kidney disease, stage 4 (severe) Complete Blood Count no Diff 2 Months N18.4 - Chronic kidney disease, stage 4 (severe) Parathyroid Hormone Intact 2 Months N18.4 - Chronic kidney disease, stage 4 (severe) Coding Level of Care Code Est Pt Level 4 (30350) Diagnoses Chronic kidney disease, stage 4 (severe) N18.4 Hyperparathyroidism E21.3 Essential hypertension I10 Diabetic nephropathy associated with type 2 diabetes mellitus E11.21
[2024-10-14 10:00] VITALS: BP 160/92; PULSE 69; O2SAT 98; BMI 33.1
[2024-10-14 10:09] VITALS: BP 140/80
== END 2024-10-14 10:15 | disposition home or self-care (01) ==
PROVIDERS: PCP Internal Medicine; Visit Provider Internal Medicine Hypertension Specialist
DX: I12.9 Hypertensive chronic kidney disease with stage 1 through stage 4 chronic kidney disease, or unspecified chronic kidney disease (principal); E11.22 Type 2 diabetes mellitus with diabetic chronic kidney disease; N18.4 Chronic kidney disease, stage 4 (severe); E21.3 Hyperparathyroidism, unspecified
CPT/HCPCS: 99214

== ENCOUNTER 2024-11-12 08:53 | Outpatient (AMB) | payer OTHER, SELFPAY ==
--- NOTE | 2024-11-12 09:01 | MHC.OFFVIS ---
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 Previous exam she had pain at 10-11 o'clock, she now reports the pain is below mid section of the left breast. She admits to having a high level of caffeine throughout the day. She denies any nipple discharge. [facility] Medical History Type 2 diabetes mellitus with hyperglycemia Colon cancer screening Skin tag Atherosclerotic cardiovascular disease Calcific tendinitis of right shoulder Adhesive capsulitis of right shoulder Back pain Upper respiratory infection Arm pain Dizziness Type 2 diabetes mellitus with unspecified complications Dyspnea on exertion SOB (shortness of breath) Gastroparesis Headache On anticoagulant therapy Hidradenitis suppurativa Pulmonary embolism Type 2 diabetes mellitus with chronic kidney disease Precordial chest pain Vitamin D deficiency HTN (hypertension) On beta jacqueline at home Axillary hidradenitis suppurativa Proliferative diabetic retinopathy associated with type 2 diabetes mellitus Diabetic polyneuropathy associated with type 2 diabetes mellitus Diabetic nephropathy associated with type 2 diabetes mellitus custodial (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 pylori infection Anxiety and depression Acute angle-closure glaucoma CVA (cerebral vascular accident) GERD (gastroesophageal reflux disease) Hypertension Coronary artery disease Hypercholesterolemia Obesity (BMI 30-39.9) Surgical History History of hysterectomy History of surgery (03/21/23) Hx of excision of mass History of axillary surgery History of axillary surgery (08/21/20) History of esophagogastroduodenoscopy (EGD) History of angioplasty History of cardiac catheterization (~03/30/16) S/P LILY-BSO History of endometrial ablation Amputation of right index finger History of tubal ligation Family History Mother Type 2 diabetes mellitus Hypertension Maternal Grandmother Myocardial infarction Paternal Grandmother History of breast cancer Social History Household Members: None Housing: Apartment Are you a primary respiratory care program director to a significant other at home: No Do you presently have visiting nurse or other home services: No Alcohol intake: never Comment: medicated, see MAR Patient Tobacco Use Status: Former Tobacco user Tobacco use type: Cigarette e-Cigarette/Vaping Use: Never Used Second Hand Smoke Exposure: No Substance Use Type: Marijuana service: No Current occupational status: unemployed Cognitive needs: No Hearing needs: Yes (partially deaf ) Vision needs: Yes Review of Systems Const All systems reviewed & are unremarkable except as noted in HPI and below Reports no additional complaints Skin/Breast Reports system reviewed and no additional complaints, except as documented and Reports as per HPI Physical Exam Const General: cooperative, healthy appearing and no acute distress Chest Other: Surgical scarring noted. She reports area of tenderness below the nipple mid section generalized. Breast/axilla inspection: normal inspection of the breasts and normal inspection of the axillae Breast/axilla palpation: normal palpation of the breasts Skin General skin exam: no rashes or lesions noted Results Reviewed Results Reviewed: [facility] [address] [place], [place] [address] Ultrasound Report Signed Patient: Phoebe Ruelas MR#: [id number] : 1970 Acct:[id number] Age/Sex: 54 / F ADM Date: 10/14/24 Loc: HO.MAMMO Attending Dr: Sadia Garcia CNM Ordering Physician: Sadia Garcia CNM Date of Service: 10/14/24 Procedure(s): US breast LT limited mamm only Accession Number(s): [id number] cc: Sadia Garcia CNM; Alfredo Sanders MD~ EXAMINATION: MM DIAGNOSTIC DIGITAL BREAST TOMOSYNTHESIS, BILATERAL Limited left breast ultrasound. CLINICAL INFORMATION: Left breast pain COMPARISON: Mammography: Comparison is made with relevant prior exams. TECHNIQUE: Digital breast mammography with tomosynthesis is performed in both the craniocaudal and mediolateral oblique views along with computer-aided detection (CAD). Limited left breast ultrasound. FINDINGS: There are scattered areas of fibroglandular density (ACR BI-RADS breast composition Category b). BB marker in the lower central breast without underlying abnormality indicating site of patient's pain. There are no significant masses, abnormal calcifications, or other abnormalities. Targeted color Doppler ultrasound scanning from 40 8:00 demonstrates normal fibronodular breast tissue. There is no sonographic abnormality. Results are provided to the patient at time of visit by the technologist. US/US breast LT limited mamm only IMPRESSION: Left: No mammographic or sonographic abnormality to account for the patient's left breast pain. Recommend clinical evaluation and follow-up. Right: Negative. ASSESSMENT: BI-RADS BI-RADS 1 - Negative RECOMMENDATION: 1 year F/U This patient's information was entered into a reminder system with a target due date for their next mammogram. Electronically signed by: Reema Poe DO 10/14/2024 09:47 AM EST Dictated By: Reema Poe DO Signed By: <Electronically signed by Reema Poe DO in OV> 10/14/2447 DD/ 4 TD/TT: 10/14/24939 Chief Business Development Officer: Assessment & Plan Assessment & Plan (1) Breast pain: Code(s): N64.4 - Mastodynia Category: Medical Plan: See notes below. Plan Discussed: Ultrasound and mammogram [id number] 1. Normal breast exam today. Strongly recommended her reduce the caffeine intake to 1 cup in the a.m. and decaf thereafter, no caffeine after 12 noon. Use of a supportive comfortable broad, comfort measures OTC medication p.r.n. as needed per manufacture's recommendations. Report any abnormal changes including breast discharge or bleeding from the nipple. Return to the office for annual exam or p.r.n.. She has a scheduled appointment 11/19/2024 to discuss pelvic MRI results with Dr. Farmer, offered sooner appointment patient declined due to having too many appointments this week and not being able to schedule it in. The patient expressed understanding and agreement with the plan of care. All of her questions and concerns were addressed to the best of my ability. This note is constructed using voice recognition software. While every effort has been made to ensure accuracy, coater carbon paper errors may have been included. Coding Level of Care Code Est Pt Level 3 (09531) Diagnoses Breast pain N64.4
--- OUTSIDE RECORDS SUMMARY | 2024-11-12 09:04 | XMS_ITS | Encounter Summary ---
Author Organization [employer] Address [address] [place] [address] Care Team Providers Care Crocheter Hand Name Role Phone Alfredo Sanders MD Primary Care Provider [phone] Reason for Visit * Reason Comments Follow-up Diabetic foot exam Encounter Details Date Type Department Care Team ([facility] st Contact Info) Description 10/29/2024 2:30 PM EST Office Visit Orthopedic Surgery - [place] [address] [phone] Moris Ingram, DPM [address] [address] Plantar fascial fibromatosis (Primary Dx); Right foot pain; Tendonitis, Achilles, left; Dermatophytosis of nail; Pain in toe of right foot; Pain in toe of left foot; Corns and callosities; Metatarsalgia of both feet; Type II diabetes mellitus with peripheral circulatory disorder (CMS/HCC); Diabetic mononeuropathy simplex (CMS/HCC); Contusion of right foot, initial encounter Social History Tobacco Use Types Packs/Day Years Used Date Smoking Tobacco: Former Cigarettes Q uit: 01/31/2011 Smokeless Tobacco: Never Tobacco Cessation:Counseling Given: Not Answered Alcohol Use Standard Drinks/Week Comments No 0 (1 standard drink = 0.6 oz pur e alcohol) Sex and Gender Information Value Date Recorded Sex Assigned at Not on file Gender Identity Not on file Sexual Orientation Not on file Job Start Date Occupation Industry Not on file Not on file Not on file documented as of this encounter Last Filed Vital Signs Vital Sign Reading Time Taken Comments Blood Pressure - - Pulse - - Temperature - - Respiratory Rate - - Oxygen Saturation - - Inhaled Oxygen Concentration - - Weight 90.7 kg (200 lb) 10/29/2024 12:55 PM EST Height 165.1 cm (5' 5 ) 10/29/2024 12:55 PM EST Body Mass Index 33.28 10/29/2024 12:55 PM EST documented in this encounter Ordered Prescriptions Prescription Sig Dispensed Refills Start Date End Da te diclofenac (Voltaren Arthritis Pain) 1 % topical gel Apply 4 g topically 2 (two) times a day. 240 g 1 10/29/2024 10/29/2024 documented in this encounter Progress Notes * Moris Ingram DPM - 10/29/2024 2:30 PM EST Last PCP visit:Referring MD: Alfredo Sanders 05/08/2024 S Patient presents with multiple complaints and she has very thick skin on balls both feet makes difficult for her to walk notes a history of a stroke myocardial infarction is a type II diabetic occasionally gets numbness burning tingling to her feet notes her nails are longer painful thickened do bother her occasionally states occasional effect where she walks has been trying to wear more comfortab le wider shoe gear to help accommodate her foot pain discomfort is a 5 out of 10 endorses numbness burning tingling occasionally to her feet Patient presents with a new acute complaints stating were sharp shooting pain in her right heel is been there for last 2 to 3 weeks she does note that this weekend she dropped a heavy tablet on her right forefoot that has been bruised swollen since then was willing to get x-rays today ROS: GENERAL: Pt denies nausea, fever, vomiting, chills, or shortness of breath. Pt in NAD. CARDIOLOGY: pt denies chest pain, palpitations LUNGS: pt denies shortness of breath MUSCULOSKELETAL: See HPI, otherwise no joint pain or swelling, back pain, or muscle pain. SKIN: see HPI, otherwise no lesions, rash or itching NEURO: No persistent headache, weakness or numbness The remainder of the review of systems is noncontributory PAST MEDICAL HISTORY: Patient Active Problem List Diagnosis Code Iron deficiency anemia D50.9 Type II or unspecified type diabetes mellitus with ophthalmic manifestations, uncontrolled [id number] Non-compliance with treatment Z91.199 Myocardial infarct ([facility]) I21.9 Stroke ([facility]) I63.9 Uterine fibroid D25.9 Carpal tunnel syndrome G56.00 hyperlipidemia E78.5 Diabetic neuropathy ([facility]) E11.40 Diabetes mellitus with neurological manifestations, uncontrolled [id number] Nuclear sclerosis H25.10 Microalbuminuria R80.9 Type 2 diabetes, uncontrolled, with renal manifestation [id number] Chronic venous insufficiency I87.2 PAD (peripheral artery disease) ([facility]) I73.9 SOCIAL HISTORY: Social History Tobacco Use Smoking status: Former Packs/day: 1.50 Years: 14.00 Pack years: 21.00 Types: Cigarettes Quit date: 01/31/2011 Years since quittin.5 Smokeless tobacco: Never Tobacco comments: smokes 1 pack every 3 days Substance Use Topics Alcohol use: No History Last Reviewed by Gissell Paz M.A. on 06/24/2019 at 9:10 AM Sections Reviewed Tobacco ACTIVE MEDICATIONS: Current Outpatient Medications Medication Sig Dispense Refill clotrimazole (LOTRIMIN) 1 % cream Apply to skin and toenails daily for 12 weeks 45 g 3 alprazolam (XANAX) 1 MG tablet TAKE 1 TABLET TWICE DAILY NEEDED 2 amlodipine (NORVASC) 10 MG tablet Take 10 mg by mouth daily. 5 ASPIRIN ADULT LOW STRENGTH 81 MG EC tablet Take 81 mg by mouth daily. 3 Cholecalciferol (VITAMIN D3) 1000 UNITS Tab Take 1 Tab by mouth daily. 11 docusate sodium (COLACE) 100 MG capsule TAKE 1 CAPSULE BY MOUTH ONCE DAILY NEEDED 3 TRULICITY 1.5 MG/0.5ML Solution Pen-injector INJECT ONE PEN (=1.5MG) SUBCUTANEOUSLY ONCE A WEEK DIRECTED 11 HUMALOG KWIKPEN 200 UNIT/ML Solution Pen-injector INJECT 20 TO 30 UNITS BEFORE MEALS THREE TIMES DAILY 11 BD PEN NEEDLE MADI U/F 32G X 4 MM Misc USE FOUR TIMES DAILY 11 ranitidine (ZANTAC) 150 MG tablet TAKE 1 TABLET BY MOUTH TWICE DAILY 11 rosuvastatin (CRESTOR) 10 MG tablet Take 10 mg by mouth daily. 5 SSD 1 % cream APPLY TO THE AFFECTED AREA(S) EVERY DAY 9 venlafaxine (EFFEXOR-XR) 150 MG 24 hr capsule TAKE 1 CAPSULE ONCE DAILY WITH FOOD 2 Zolpidem Tartrate 10 MG Tab TAKE 1 TABLET AT BEDTIME NEEDED 2 Insulin Glargine 300 UNIT/ML Solution Pen-injector Inject 50 Units into the skin daily. Dulaglutide 0.75 MG/0.5ML Solution Pen-injector Inject into the skin once a week. atorvastatin (LIPITOR) 80 MG tablet Take 80 mg by mouth daily. metoprolol (TOPROL-XL) 200 MG 24 hr tablet Take 1 Tab by mouth daily. 30 Tab 0 ferrous sulfate 325 (65 FE) MG tablet Take 1 tablet by mouth 3 times daily. 90 Tab 0 ONE TOUCH ULTRASOFT LANCETS MISC Use to test b/s tid 100 Each 0 glucose blood test strips (ONE TOUCH ULTRA TEST STRIPS) strip USE TO TEST BS 3 TIMES A DAY OR ASDIRECTED BY PHYSICIAN 100 Strip 0 Insulin Pen Needle (B-D ULTRAFINE III SHORT PEN) 31G X 8 MM MISC Use up to 4 times daily for insulin 100 Each 5 lisinopril (PRINIVIL,ZESTRIL) 2.5 MG tablet TAKE 1 TABLET DAILY 30 Tab 5 HUMALOG KWIKPEN 100 UNIT/ML injection INJECT INTO THE SKIN. 8 UNITS WITH EACH MEAL OR DIRECTED 3Device 5 Alcohol Swabs (JAKOB ALCOHOL WIPES) PADS use as directed 1 Each 5 AMOXICILLIN 500 MG OR CAPS 4 capsules 1 hour before dental work 4 3 ASPIRIN 81 MG OR TABS 1 TABLET DAILY ONE TOUCH ULTRA CONTROL SOLN as directed one 5 No current facility-administered medications for this visit. ALLERGIES: Keflex [cephalexin monohydrate-polysorbate 80] PHYSICAL EXAM: Height 5' 5 (1.651 m), weight 200 lb (90.7 kg). Estimated body mass index is 33.28 kg/m?? as calculated from the following: Height as of this encounter: 5' 5 (1.651 m). Weight as of this encounter: 200 lb (90.7 kg). PODIATRIC EXAMINATION: GENERAL: Patient appears well nourished, with NAD. VASCULAR: Dorsalis pedis pulses are 0/4 bilaterally and Posterior tibial pulses are 1/4 bilaterally. Capillary filling time within normal limits the digits. No pallor on elevation or rubor on dependency. diminishedhair growth. No varicosities. Denies rest pain or claudication pain. NEUROLOGICAL: Sharp/dull sensation , protective sensation intact 10/10 with 5.07 semmes arlyn bilaterally, vibratory sensation with tuning fork intact to the tibial tuberosity. ORTHOPEDIC: Good muscle strength 5/5 of all flexors and extensors. Dorsi flexion of ankle ,10 degrees, plantar flexion WNL. No muscle atrophy. Forefoot ecchymosis of the second and third metatarsal phalangeal joints Pain with palpation of the medial tuber of the calcaneus right, negative palpable fibromas Equinus with 5 degrees dorsiflexion with knee bent 0 degrees with knee extended positive service occult test No pain on palpation of the posterior tibial tendon, patient to perform single and double heel raise No pain on palpation of the Achilles tendon. Negative palpable deficits of the Achilles tendon Normal range of motion of the ankle joint and subtalar joint DERMATOLOGICAL:.Skin thinning texture shiny appearance diffuse hyperpigmentation Toenails: Left Toenail(s) 1-5: Crumbling upon debridement, subungual debris, discoloration, dystrophy, elongation, mycotic appearance, onychomycosis, pain and thickening. Right Toenail(s) 1-5: Crumbling upon debridement, subungual debris, discoloration, dystrophy, elongation, mycotic appearance, onychomycosis, pain and thickening. Annular scaling bilateral feet moccasin distribution Hyper Keratotic tissue subfourth metatarsal bilaterally BIOMECHANICS: STJ ROM wnl, MTJ ROM wnl, 1st MPJ ROM wnl. Fat pad atrophy symmetric feet both feet IMAGING: IMPRESSION: 1. Plantar fascial fibromatosis 2. Right foot pain XR Foot 3+ Views Right 3. Tendonitis, Achilles, left CANCELED: Ambulatory referral to Physical Therapy and Athletic Training 4. Dermatophytosis of nail 5. Pain in toe of right foot 6. Pain in toe of left foot 7. Corns and callosities 8. Metatarsalgia of both feet 9. Type II diabetes mellitus with peripheral circulatory disorder (CMS/HCC) 10. Diabetic mononeuropathy simplex (CMS/HCC) 11. Contusion of right foot, initial encounter PLAN: Pt was seen and examined, history reviewed. Radiographs reviewed negative for fracture Patient is planned for surgery tomorrow we will hold off on steroid injection right heel We discussed visit orthotics insoles stretching exercises for fasciitis of right foot Discussed with patient regarding proper glucose control, exercise, and diet. Explained to patient proper shoe gear, and importance of daily foot checks. RX dispensed for diabetic shoes and inserts Clotrimazole prescribed for dermatophytosis of nails and skin I reviewed neuropathy and why it occurs in diabetics. I educated the patient on proper blood sugar control and the importance of an HgBA1c of less than 7.0%. I reviewed the signs and symptoms of neuropathy with the patient Pt to return for another evaluation in 1 months. Debridement of mycotic toenails 6-10: Verbal informed consent was obtained from the patient. Greater than 6 nails were aseptically debrided in thickness and length with nail nippers Hyperkeratotic tissue debrided pared with a number #15 scalpel blade x2 Moris Ingram DPM documented in this encounter Plan of Treatment Upcoming Encounters Date Type Department Care Team (Late st Contact Info) Description 12/03/2024 10:30 AM EST Office Visit Orthopedic Surgery - [place] [address] [phone] Moris Ingram DPM [address] [id number] documented as of this encounter Results * XR Foot 3+ Views Right (10/29/2024 1:20 PM EST) Anatomical Region Laterality Modality Lower Extremities, Foot Right Computed Radiography Narrative 10/29/2024 1:32 PM EST Right foot ??3 views No fracture. No radiopaque foreign joint spaces normal ?? Foot position rectus Normal talus navicular position normal calcaneal inclination normal symes line talus navicular joint to calcaneal cuboid joint Moris Ingram DPM IMG XR PROCEDURES documented in this encounter Visit Diagnoses Diagnosis Plantar fascial fibromatosis- Primary Right foot pain Pain in soft tissues of limb Tendonitis, Achilles, left Dermatophytosis of nail Pain in toe of right foot Pain in soft tissues of limb Pain in toe of left foot Pain in soft tissues of limb Corns and callosities Metatarsalgia of both feet Type II diabetes mellitus with peripheral circulatory disorder (CMS/HCC) Type II or unspecified type diabetes mellitus with peripheral circulatory disorders, not stated as uncontrolled Diabetic mononeuropathy simplex (CMS/HCC) Type II or unspecified type diabetes mellitus with neurological manifestations, not stated as uncontrolled Contusion of right foot, initial encounter documented in this encounter Discontinued Medications Medication Sig Discontinue Reason Start Date End Da te diclofenac (Voltaren Arthritis Pain) 1 % topical gel Apply 4 g topically 2 (two) times a day. 10/29/2024 10/29/2024 documented as of this encounter Care Teams Crocheter Hand Relationship Specialty Start Date End Date Alfredo Sanders MD [address] [place] [address] [address] [facility] [place] [address] PCP - General Internal Medicine 04/01/19 documented as of this encounter
--- OUTSIDE RECORDS SUMMARY | 2024-11-12 09:04 | XMS_ITS | Clinical Summary ---
Author Organization [facility] Address [address] [place] [address] Phone Care Team Providers Care Director Medical Writing Name Role Phone Alfredo Sanders MD Primary Care Provider [phone] Allergies Active Allergy Reactions Criticality Noted Date Comments Cephalexin Hives,Other (see comments) 6 Nsaids Hives 06/08/2018 Medications aspirin (ST EDUARDO) 81 MG EC tablet Comments: Patient Notes: TAKE 1 TABLET DAILY Duration: 30 6 Active Insulin Glargine, 2 Unit Dial, (Toujeo Max SoloStar) 300 UNIT/ML solution pen-injector Inject 64 pre-filled pen syringe under the skin 1 (one) time each day Active metoprolol succinate XL (TOPROL-XL) 200 MG 24 hr tablet Take 1 tablet by mouth 1 (one) time each day 6 Active rosuvastatin (CRESTOR) 20 MG tablet Take 1 tablet by mouth 1 (one) time each day Active zolpidem (AMBIEN) 5 MG tablet Take 1 tablet by mouth at bed time Active traMADol (ULTRAM) 50 MG tablet Take 50 mg by mouth every 6 (six) hours if needed for moderate pain Active silver sulfADIAZINE (SILVADENE, SSD) 1 % cream APPLY TO THE AFFECTED AREA(S) EVERY DAY 9 Active Proctosol HC 2.5 % cream APPLY RECTALLY TWICE DAILY FOR HEMORRHOIDS DIRECTED 2 Active Linzess 72 MCG capsule Take 1 capsule by mouth 2 Active SM Vitamin D3 50 MCG capsule Take 1 tablet by mouth 1 (one) time each day 2 Active glucose 4 g chewable tablet CHEW 3 TABLETS BY MOUTH EVERY 15 MINUTES NEEDED FOR HYPOGLYCEMIA 2 Active ezetimibe (ZETIA) 10 MG tablet Take 10 mg by mouth 1 (one) time each day 2 Active omeprazole (PriLOSEC) [address] capsule Take by mouth 1 (one) time each day 2 Active Xarelto 20 MG tablet Take 20 mg by mouth 1 (one) time each day with dinner 2 Active amLODIPine (NORVASC) 5 MG tablet TAKE 1 TABLET BY MOUTH EVERY DAY 30 tablet 2 3 Active losartan (Cozaar) 50 MG tablet Take 1 tablet (50 mg total) by mouth 1 (one) time each day 30 tablet 11 3 Active escitalopram (LEXAPRO) 10 MG tablet Take 10 mg by mouth 1 (one) time each day Active insulin NPH, Isophane, (HumuLIN,NovoLIN ) 100 UNIT/ML injection Inject 25 Units under the skin in the morning and 25 Units in the evening. Inject before meals. Active Dapagliflozin Propanediol (Farxiga) 10 MG tabletIndication s:Type 2 diabetes mellitus with diabetic chronic kidney disease (HCC) Take 10 mg by mouth 1 (one) time each day 30 tablet 3 3 Active Active Problems Problem Noted Date Diagnosed Date Anemia 01/26/2021 Diffuse disease of coronary artery 01/26/2021 Renal disorder due to type 2 diabetes mellitus 0 01/26/2021 Renal failure syndrome 01/26/2021 Chronic venous insufficiency 06/08/2018 Peripheral vascular disease 03/20/2016 Overview (01/26/2021): With ulcer of right foot- [facility]ed [facility] Peripheral vascular disease 03/20/2016 Overview (01/26/2021): With ulcer of right foot- Followed [facility] Cigar smoker 03/08/2016 Essential hypertension 03/08/2016 Mixed anxiety and depressive disorder 03/08/2016 Mixed hyperlipidemia 03/08/2016 Type 2 diabetes mellitus in obese 03/08/2016 Microalbuminuria 09/02/2014 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 09/02/2014 Nuclear sclerosis 09/02/2014 Overview (10/05/2021): Dr Barnes note 11-29-11 Carpal tunnel syndrome 11/24/2008 Overview (09/30/2021): Bilateral; L>R Uterine leiomyoma 08/26/2008 Myocardial infarction 08/13/2008 Overview (09/30/2021): Inferior; Left Ventricular Thrombus;07/16; [place] Stroke 08/13/2008 Overview (10/05/2021): Left Cerebellar; 07/16; LV thrombus Noncompliance with treatment 07/29/2008 Iron deficiency anemia 12/26/2005 Immunizations Name Administration Dates Next Due H1N1 Inj Preservative Free 12/04/2009 Influenza, Unspecified 07/18/2011,07/22/2010, PPD Test 05/08/2007 Tdap 12/04/2009 Family History Medical History Relation Comments Diabetes Mother Diabetes Sibling Relation Status Comments Father Unknown Mother Sibling Social History Tobacco Use Types Packs/Day Years Used Date Smoking Tobacco: Former Cigarettes Q uit: 10/09/2016 Smokeless Tobacco: Never Tobacco Cessation:Counseling Given: Not Answered Comments:Smoking History Info:Some days Alcohol Use Standard Drinks/Week Comments No 0 (1 standard drink = 0.6 oz pur e alcohol) Comments Unknown Sex and Gender Information Value Date Recorded Sex Assigned at Not on file Legal Sex Female 4:42 PM EST Gender Identity Not on file Sexual Orientation Not on file Last Filed Vital Signs Vital Sign Reading Time Taken Comments Blood Pressure 130/80 06/30/2023 11:16 AM EDT Pulse 88 06/30/2023 11:16 AM EDT Temperature - - Respiratory Rate - - Oxygen Saturation 98% 06/30/2023 11: 16 AM EDT Inhaled Oxygen Concentration - - Weight 92.4 kg (203 lb 12.8 oz) 023 11:16 AM EDT Height 167.6 cm (5' 6 ) 03/20/2023 2:33 PM EDT Body Mass Index 32.89 03/20/2023 2:33 PM EDT Plan of Treatment Health Maintenance Due Date Last Done Comments Breast Cancer Screening 1969 Pneumococcal Vaccine: Pediat rics (0 to 5 Years) and At-Risk Patients (6 to 64 Years) (1 of 2 - PCV) 1975 Hepatitis B Vaccine (1 of 3 - 19+ 3-dose series) 1988 Colorectal Cancer Screening: Annual FOBT 2018 Colorectal Cancer Screening: Colonoscopy 2018 Colorectal Cancer Screening: Sigmoidoscopy 2018 Diabetes: Hemoglobin A1C 11/06/2020 Diabetes: Ophthalmology Exam 11/06/2020, 01/20/2010, 09/11/2008, Additional history exists Diabetes: Pedal Pulse Checked 11/06/2020 Diabetes: Sensory Foot Exam 11/06/2020 Diabetes: Visual Foot Exam 11/06/2020 Influenza Vaccine (#1) 2024 1, 07/22/2010, 08/26/2008 Insurance Care Teams Director Medical Writing Relationship Specialty Start Date End Date Alfredo Sanders MD [address] [place], [place] PCP - General 10/19/20
--- OUTSIDE RECORDS SUMMARY | 2024-11-12 09:04 | XMS_ITS | Clinical Summary ---
Author Organization [address] [facility] Address [address] [place] [address] Phone Care Team Providers Care Residential Youth Counselor Name Role Phone Alfredo Sanders MD Primary Care Provider [phone] Allergies Active Allergy Reactions Criticality Noted Date Comments Cephalexin Monohydrate 06/08/2018 Other Reaction(s): Hives/Urticaria Medications Medication Sig Dispensed Refills Start Date End Date Status alcohol swabs pads, medicated use as directed 12/04/2009 Acti ve ALPRAZolam (XANAX) 1 mg tablet TAKE 1 TABLET TWICE DAILY NEEDED 01/28/2019 Active amLODIPine (NORVASC) 10 mg tablet Take 10 mg by mouth daily. 01/28/2019 Active amoxicillin (AMOXIL) 500 mg capsule 4 capsules 1 hour before dental work 01/14/2009 Active aspirin 81 mg EC tablet 1 TABLET DAILY Active atorvastatin (LIPITOR) 80 mg tablet Take 80 mg by mouth daily. Active pen needle, diabetic 32 gauge x 5/32 needle USE FOUR TIMES DAILY 01/28/2019 Active cholecalciferol (VITAMIN D-3) 25 mcg (1,000 unit) tablet Take 1 Tab by mouth daily. 12/27/2018 Active clotrimazole (LOTRIMIN) 1 % cream Apply to skin and toenails daily for 12 weeks 08/06/2024 Active docusate sodium (COLACE) 100 mg capsule TAKE 1 CAPSULE BY MOUTH ONCE DAILY NEEDED 01/28/2019 Active dulaglutide (Trulicity) 0.75 mg/0.5 mL pen injector injection Inject into the skin once a week. Active ferrous sulfate 325 mg (65 mg elemental iron) tablet Take 1 tablet by mouth 3 times daily. 10/27/2011 Active glucose blood test strip USE TO TEST BS 3 TIMES A DAY OR DIRECTED BY PHYSICIAN 10/27/2011 Active insulin lispro (HumaLOG KwikPen Insulin) 100 unit/mL injection pen INJECT INTO THE SKIN. 8 UNITS WITH EACH MEAL OR DIRECTED 08/12/2011 Active insulin lispro (HumaLOG KwikPen Insulin) 200 unit/mL (3 mL) CONCENTRATED injection pen INJECT 20 TO 30 UNITS BEFORE MEALS THREE TIMES DAILY 01/28/2019 Active insulin glargine U-300 conc (TOUJEO MAX SoloStar) 300 unit/mL (3 mL) CONCENTRATED injection pen Inject 50 Units into the skin daily. Active pen needle, diabetic 31 gauge x 5/16 needle Use up to 4 times daily for insulin 08/18/2011 Active lisinopriL (PRINIVIL,ZESTRIL ) 2.5 mg tablet TAKE 1 TABLET DAILY 08/16/2011 Active metoprolol succinate (TOPROL-XL) 200 mg 24 hr tablet Take 1 Tab by mouth daily. 10/27/2011 Active lancets lancets Use to test b/s tid 10/27/2011 Active ranitidine HCl (ZANTAC 150 EFFERDOSE ORAL) ranitidine (ZANTAC) 150 MG tablet: TAKE 1 TABLET BY MOUTH TWICE DAILY 01/28/2019 Active rosuvastatin (CRESTOR) 10 mg tablet Take 10 mg by mouth daily. 01/28/2019 Active silver sulfADIAZINE (SSD) 1 % cream APPLY TO THE AFFECTED AREA(S) EVERY DAY 01/28/2019 Active dulaglutide (Trulicity) 1.5 mg/0.5 mL pen injector injection INJECT ONE PEN (=1.5MG) SUBCUTANEOUSLY ONCE A WEEK DIRECTED 01/28/2019 Active venlafaxine XR (EFFEXOR-XR) 150 mg 24 hr capsule TAKE 1 CAPSULE ONCE DAILY WITH FOOD 01/28/2019 Active zolpidem (AMBIEN) 10 mg tablet TAKE 1 TABLET AT BEDTIME NEEDED 01/28/2019 Active blood glucose control, normal (OneTouch Ultra Control) solution ONE TOUCH ULTRA CONTROL SOLN: as directed 12/08/2005 Active diclofenac (Voltaren Arthritis Pain) 1 % topical gel Apply 4 g topically 2 (two) times a day. 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, not stated as uncontrolled(250.41) 09/02/2014 Secondary diabetes mellitus with neurological manifestations, 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) 09/02/2014 Diabetic neuropathy 03/25/2011 Hyperlipidemia 07/21/2010 Carpal tunnel syndrome 11/24/2008 Overview (09/02/2024): Bilateral; L>R Uterine fibroid 08/26/2008 Stroke 08/13/2008 Overview (09/02/2024): Left Cerebellar; 07/16; LV thrombus Myocardial infarct 08/13/2008 Overview (09/02/2024): Inferior; Left Ventricular Thrombus;07/16; [place] Type II or unspecified type diabetes mellitus with ophthalmic manifestations, 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) 06/23/2007 Iron deficiency anemia 12/26/2005 Encounters Date Type Department Care Team Description 10/29/2024 2:30 PM EST Office Visit Orthopedic Surgery - [address] [id number] Moris Ingram, DPM Plantar fascial fibromatosis (Primary Dx); Right foot pain; Tendonitis, Achilles, left; Dermatophytosis of nail; Pain in toe of right foot; Pain in toe of left foot; Corns and callosities; Metatarsalgia of both feet; Type II diabetes mellitus with peripheral circulatory disorder (CMS/HCC); Diabetic mononeuropathy simplex (CMS/HCC); Contusion of right foot, initial encounter from Last 3 Months Immunizations Name Administration Dates Next Due H1N1 Inj Preservative Free 12/04/2009 Influenza trivalent, 0.5mL, preservative free (Fluarix; FluLaval; Fluzone) ages 6mo and older (Afluria) 3 years and older 07/18/2011,07/22/2010,08/26/2008 PPD Test 05/08/2007 Tdap Tetanus diptheria acell ular pertussis (Boostrix; Adacel) 7yo and older 12/04/2009 Surgical History Surgery Date Site/Laterality Comments TUBAL LIGATION PROCEDURE: HISTORICAL TUBAL LIGATION Medical History Medical History Date Comments Non-compliance with treatment 07/29/2008 DX :Non-compliance with treatment [place] [place] 08/13/2008 DX: Myocardial infarct ([facility]); COMMENT: Inferior; 07/16; [place] [place] 08/13/2008 DX:Stroke ([facility]) ; COMMENT: Left Cerebellar Tumors of body of uterus, an tepartum condition or complication 08/26/2008 DX:Tumors of body of uterus, antepartum condition or complication Type II or unspecified type diabetes mellitus with unspecified complication, not stated as uncontrolled DX:Type II or unspecified ty pe diabetes mellitus with unspecified complication, not stated as uncontrolled Heart disease, unspecified DX:He art disease, unspecified Unspecified essential hypertension DX:Unspecified essential hypertension Carpal tunnel syndrome 11/24/2008 DX:Carpal tunnel syndrome; COMMENT: Bilateral; L>R Other and unspecified hyperlipidemia 07/21/2010 DX:Other and unspecified hyperlipidemia [place] [place] 03/25/2011 DX :Diabetic neuropathy ([facility]) Family History Medical History Relation Name Comments Breast cancer Paternal Grandmother cervic al cancer Blindness Neg Hx Cataracts Neg Hx Coronary artery disease Neg Hx no p remature CAD Glaucoma Neg Hx Macular degeneration Neg Hx Strabismus Neg Hx Relation Name Status Comments Paternal Grandmother Social History Tobacco Use Types Packs/Day Years [...] file Not on file Not on file Obstetrics History Last Filed Vital Signs Vital Sign Reading Time Taken Comments Blood Pressure - - Pulse - - Temperature - - Respiratory Rate - - Oxygen Saturation - - Inhaled Oxygen Concentration - - Weight 90.7 kg (200 lb) 10/29/2024 12:55 PM EST Height 165.1 cm (5' 5 ) 10/29/2024 12:55 PM EST Body Mass Index 33.28 10/29/2024 12:55 PM EST Plan of Treatment Upcoming Encounters Date Type Department Care Team (Late st Contact Info) Description 12/03/2024 10:30 AM EST Office Visit Orthopedic Surgery - [place] [address] [phone] Moris Ingram, DAMIR [address] [address] Health Maintenance Due Date Last Done Comments Breast Cancer Screening 1969 Diabetes: Annual Foot Exam 1979 Diabetes: Annual Retina Eye Exam 1979 Cervical Cancer Screening: Pap Smear 01/13/2013 01/13/2010 Pneumococcal Vaccine: Pediatrics (0 to 5 Years) and At-Risk Patients (6 to 64 Years) (2 of 2 - PCV) 12/26/2018 12/26/2017, 02/29/2012 Zoster Vaccines (1 of 2) 2019 Cholesterol Screening (Lipid Panel) 09/11/2022 03/25/2011 Colorectal Cancer Screening: Colonoscopy 09/11/2022 Depression Screening 09/11/2022 Lung Cancer Screening (Low Dose CT) 09/11/2022 Social Influencers of Health Screening 09/11/2022 Diabetes: Annual Urine Albumin-Creatinine Ratio (uACR) 09/24/2022 03/25/2011 Diabetes: Blood Sugar Control Test (HGBA1C) 09/24/2022 03/25/2011 COVID-19 Vaccine ( season) 2024 09/28/2021, 08/30/2021 Diabetes: Annual GFR (Glomerular Filtration Rate) 06/30/2024 06/30/2023, 03/25/2011 Hypertension/CHF/CAD Annual BMP Blood Test 10/29/2024 06/30/2023, 03/25/2011 Hepatitis B Vaccines (3 of 3 - 19+ 3-dose series) 12/09/2024 07/23/2024, 06/11/2024 DTaP,Tdap,and Td Vaccines (4 - Td or Tdap) 04/07/2027 04/07/2017, 02/29/2012, 12/04/2009 HIV Screening Completed 01/13/2010 Hepatitis C Screening Completed 01/13/2010 MMR Vaccines Aged Out 05/31/2024 No longer eligi ble based on patient's age to complete this topic Influenza Vaccine Completed 07/16/2024, , 08/31/2022, Additional history exists HIB Vaccines Aged Out No longer eligi ble based on patient's age to complete this topic HPV Vaccines Aged Out No longer eligi ble based on patient's age to complete this topic Hepatitis A Vaccines Aged Out No long er eligible based on patient's age to complete this topic IPV Vaccines Aged Out No longer eligi ble based on patient's age to complete this topic Meningococcal ACWY Vaccine Aged Out N o longer eligible based on patient's age to complete this topic RSV Immunization Patients Under 20 months Aged Out No longer eligible based on patient's age to complete this topic Varicella Vaccines Aged Out No longer eligible based on patient's age to complete this topic Procedures Procedure Name Priority Date/Time Associated Diagnosis Comments XR FOOT 3+ VIEWS RIGHT Routine 10/29/2024 1:20 PM EST Right foot pain URINE ALBUMIN CREATININE RATIO Routine 03/25/2011 ANNUAL BMP BLOOD TEST Routine 03/25/2011 HEMOGLOBIN A1C Routine 03/25/2011 LIPID PANEL Routine 03/25/2011 HEPATITIS C SCREENING Routine 01/13/2010 HIV SCREENING Routine 01/13/2010 PAP SMEAR Routine 01/13/2010 from Last 3 Months or Most Recently Relevant to Health Maintenance Results * XR Foot 3+ Views Right (10/29/2024 1:20 PM EST) Anatomical Region Laterality Modality Lower Extremities, Foot Right Computed Radiography Narrative 10/29/2024 1:32 PM EST Right foot ??3 views No fracture. No radiopaque foreign joint spaces normal ?? Foot position rectus Normal talus navicular position normal calcaneal inclination normal symes line talus navicular joint to calcaneal cuboid joint Moris Ingram DPJose Angel IMG XR PROCEDURES * Urine Albumin Creatinine Ratio (03/25/2011) Pathologist [facility] Urine Albumin Creatinine Ratio Abstracted Historical Provider MD ORQUIDEA SCHUSTER * Annual BMP Blood Test (03/25/2011) Pathologist [facility] Annual BMP Blood Test Abstracted Historical Provider MD ORQUIDEA Pickard * (ABNORMAL) Hemoglobin A1c (03/25/2011) [facility] Hemoglobin A1C 11.9(A) 4.0 - 6.0 % Blood Venous blood specimen / Unknown Historical Provider LAB BLOOD ORDERAB LES * (ABNORMAL) Lipid panel (03/25/2011) [facility] LDL/HDL Ratio 6(A) 0 - 4 Triglycerides 162(A) 0 - 150 mg/dL Cholesterol 254(A) 0 - 200 mg/dL HDL 45 40 mg/dL LDL Cholesterol 177(A) 0 - 100 mg/dL Blood Venous blood specimen / Unknown Historical Provider LAB BLOOD ORDERAB LES * HIV Screening (01/13/2010) [facility] HIV Screening Abstracted Historical Provider MD ORQUIDEA SCHUSTER * Hepatitis C Screening (01/13/2010) [facility] Hepatitis C Screening Abstracted Historical Provider MD ORQUIDEA SCHUSTER * Pap Smear (01/13/2010) [facility] Pap smear Abstracted ,Negative Historical Provider MD ORQUIDEA Pickard from Last 3 Months or Most Recently Relevant to Health Maintenance Care Teams Residential Youth Counselor Relationship Specialty Start Date End Date Alfredo Sanders MD [address] [place] [address] [address] [facility] [place] [address] PCP - General Internal Medicine 04/01/19
--- OUTSIDE RECORDS SUMMARY | 2024-11-12 09:04 | XMS_ITS | Clinical Summary ---
Author Organization [facility] [employer] [facility] Address [address] [facility] [address] [place] [address] Care Team Providers Care Farm Machinery Mechanic Name Role Phone Unavailable Primary Care Provider Unavailabl e Allergies Active Allergy Reactions Criticality Noted Date Comments Denice Hagan 02/19/2024 Medications aspirin 81 MG EC tablet Take 81 mg by mouth Once per day. Active insulin lispro (HumaLOG) 100 UNIT/ML patient supplied pumpIndications: Type 2 Diabetes Mellitus Inject under the skin continuousl y. Active lisinopril-hydro CHLOROthiazide 20-25 MG tablet Take 1 tablet by mouth Once per day. Active Active Problems Problem Noted Date Diagnosed Date Normal oral exam 02/19/2024 Complete edentulism 02/19/2024 Social History Tobacco Use Types Packs/Day Years Used Date Smoking Tobacco: Never Passive Smoke Exposure: Never Smokeless Tobacco: Never Tobacco Cessation:Counseling Given: No Alcohol Use Standard Drinks/Week Comments Never 0 (1 standard drink = 0.6 oz pur e alcohol) Comments Unknown Sex and Gender Information Value Date Recorded Sex Assigned at Female 08/08/2022 10:28 AM EDT Legal Sex Female 10:28 AM EDT Gender Identity Female 08/08/2022 10:28 AM EDT Sexual Orientation Straight 08/08/2022 10 :28 AM EDT Last Filed Vital Signs Vital Sign Reading Time Taken Comments Blood Pressure 136/74 02/19/2024 1:27 PM EDT Pulse 72 02/19/2024 1:27 PM EDT Temperature - - Respiratory Rate - - Oxygen Saturation - - Inhaled Oxygen Concentration - - Weight - - Height - - Body Mass Index - - Plan of Treatment Health Maintenance Due Date Last Done Comments CT Colonography 1969 Colonoscopy 1969 Colorectal Cancer Screening 1969 Dental Prophylaxis 1969 Dental X-Ray: Bitewings 1969 Depression Screening 1969 FIT DNA/Cologuard 1969 FIT 1969 FOBT 1969 HIV Screening 1969 Lipid Panel 1969 SDOH Screening 1969 Sigmoidoscopy 1969 Alcohol/Substance Use Screening 1981 Hepatitis C Screening 1987 Pap Smear 1990 Cervical Cancer Screening 1999 HPV/Cotest 1999 Mammogram 2009 Pneumococcal Vaccine: 50+ Years (2 of 2 - PCV) 2019 12/26/2017, 02/29/2012 Zoster Vaccines (1 of 2) 2019 COVID-19 Vaccine (3 - 2023- season) 2024 09/28/2021, 08/30/2021 Influenza Vaccine (#1) 2024 , 08/31/2022, 12/15/2021, Additional history exists Hepatitis B Vaccines (2 of 3 - 19+ 3-dose series) 07/09/2024 06/11/2024 Dental Oral Exam 08/22/2024 02/19/2024, , 06/26/2019, Additional history exists Tobacco Screening 02/18/2025 02/19/2024 Dental X-Ray: Full Mouth 02/19/2027 02/19/2024, 02/06 DTaP/Tdap/Td Vaccines (4 - Td or Tdap) 04/07/2027 04/07/2017, 02/29/2012, 12/04/2009 RSV Patients and Patients Aged 60 years or older (1 - 1-dose 75+ series) 2044 Pneumococcal Vaccine: Pediatrics (0 to 5 Years) and At-Risk Patients (6 to 49) Years) Aged Out 12/26/2017, 02/29/2012 No longer eligibl e based on patient's age to complete this topic HIB Vaccines Aged Out No longer eligi [...] patient's age to complete this topic Meningococcal Vaccine Aged Out No maicol birgit eligible based on patient's age to complete this topic RSV under 20 months Aged Out No longe r eligible based on patient's age to complete this topic Rotavirus Vaccines Aged Out No longer eligible based on patient's age to complete this topic Procedures Procedure Name Priority Date/Time Associated Diagnosis Comments PANORAMIC RADIOGRAPHIC IMAGE Routine 02/19/2024 1:30 PM EDT PERIODIC ORAL EVALUATION - ESTABLISHED PATIENT Routine 02/19/2024 1:30 PM EDT from Last 3 Months or Most Recently Relevant to Health Maintenance Insurance [place] [address] [facility] ADULT
--- OUTSIDE RECORDS SUMMARY | 2024-11-12 09:04 | XMS_ITS | Clinical Summary ---
Author Organization [facility] Address [address] [place] [address] Care Team Providers Care Die Cutter Diamond Name Role Phone Unavailable Primary Care Provider Unavailabl e Source Comments PLEASE NOTE, if this patient is a minor, it may be UNLAWFUL to discuss sensitive information that is contained in these records (such as FAMILY PLANNING, MENTAL HEALTH or SUBSTANCE ABUSE) with the minor patient's parent or other person without the patient's specific authorization.[facility] Allergies Active Allergy Reactions Criticality Noted Date Comments Cephalexin Hives 03/08/2016 Medications insulin glargine (LANTUS) 100 unit/mL injectionIndication s:Diabetes mellitus type 2 in obese Inject 70 Units into the skin once daily. 10 mL 6 Active insulin lispro (HUMALOG) 100 unit/mL injectionIndication s:Diabetes mellitus type 2 in obese Per sliding scale 10 mL 6 Active lisinopril (PRINIVIL,ZESTRIL) 20 mg tabletIndications:E ssential hypertension Take 1 Tab by mouth once daily. 6 Active traZODone (DESYREL) 150 mg tabletIndications:A nxiety and depression Take 1 Tab by mouth nightly at bedtime. 6 Active atorvastatin (LIPITOR) 80 mg tabletIndications:M ixed hyperlipidemia Take 1 Tab by mouth once daily. 6 Active aspirin [address] tabletIndications:D iabetes mellitus type 2 in obese Take 1 Tab by mouth once daily. 6 Active metoprolol (TOPROL-XL) 200 mg 24 hr tabletIndications:E ssential hypertension Take 1 Tab by mouth once daily. 6 Active FLUoxetine (PROZAC) 20 mg tabletIndications:A nxiety and depression Take 1 Tab by mouth every morning. 6 Active Active Problems Problem Noted Date Diagnosed Date PAD (peripheral artery disease) ([facility]) 2015 Overview (03/20/2016): With ulcer of right foot- Followed [facility] - [facility] Essential hypertension 03/08/2016 Diabetes mellitus type 2 in obese 03/08/2016 Anxiety and depression 03/08/2016 Mixed hyperlipidemia 03/08/2016 Cigar smoker unmotivated to quit 03/08/2016 Family History Medical History Relation Name Comments Diabetes Maternal Aunt Diabetes Maternal Grandfather Diabetes Maternal Grandmother Diabetes Maternal Uncle Diabetes Mother Cancer Paternal Grandmother unknown Relation Name Status Comments Maternal Aunt Maternal Grandfather Alive Maternal Grandmother Maternal Uncle Mother Alive Paternal Grandmother Social History Tobacco Use Types Packs/Day Years Used Date Smoking Tobacco: Every Day Tobacco Cessation:Ready to Q uit: No; Counseling Given: Yes Comments Unknown Sex and Gender Information Value Date Recorded Sex Assigned at Not on file Legal Sex Female 9:06 AM PST Gender Identity Not on file Sexual Orientation Not on file Last Filed Vital Signs Vital Sign Reading Time Taken Comments Blood Pressure 141/94 03/08/2016 3:05 PM EDT Pulse 80 03/08/2016 3:05 PM EDT Temperature 37.1 ??C (98.8 ??F) 03/08/2016 3:05 PM ED T Respiratory Rate 16 03/08/2016 3:05 PM EDT Oxygen Saturation - - Inhaled Oxygen Concentration - - Weight 77.1 kg (170 lb) 03/08/2016 3:05 PM EDT Height 165.1 cm (5' 5 ) 03/08/2016 3:05 PM EDT Body Mass Index 28.29 03/08/2016 3:05 PM EDT Plan of Treatment Not on file Insurance [place] MEDICAID
== END 2024-11-12 15:06 | disposition home or self-care (01) ==
LOC: HO.HWS 08:53
PROVIDERS: PCP Internal Medicine; Visit Provider Advanced Practice Midwife
DX: N64.4 Mastodynia (principal)
CPT/HCPCS: 99213

== ENCOUNTER → 2024-11-12 08:53 | Outpatient (BNVA) | payer OTHER, SELFPAY | PROVIDERS: PCP Internal Medicine; Visit Provider Advanced Practice Midwife | DX: N64.4 Mastodynia (principal) | CPT/HCPCS: 99212 ==

== ENCOUNTER 2024-12-05 10:31 | Outpatient (REF) | payer OTHER, SELFPAY ==
[2024-12-05 11:54] LABS: MANUAL DIFF FLAG NO
[2024-12-05 11:59] LABS: Immature Retic Fraction 8.2 % (3.0-15.9); Retic HGB Equivalent 31.9 pg (30.0-35.0); Reticulocyte Percent 1.6 % (0.5-1.8); Reticulocytes Absolute 0.083 X10*6/uL (0.026-0.095)
[2024-12-05 12:03] LABS: Basophils Percent Auto 0.5 % (0-2); Eosinophils Absolute Auto 0.1 X10*3/uL (0.0-0.4); Eosinophils Percent Auto 0.9 % (0-4); Hematocrit 43.9 % (37.0-47.0); Hemoglobin 14.3 g/dl (12.0-16.0); Imm Gran Abs Auto 0.02 X10*3/uL (0.00-0.03); Imm Gran Pct Auto 0.3 % (0.0-0.4); Lymphocytes Percent Auto 26.6 % (20-40); Mean Corpuscular HGB Conc 32.6 g/dl (31.0-35.0); Mean Corpuscular Hemoglobin 26.8 pg (27.0-33.0); Mean Corpuscular Volume 82.4 fL (80.0-98.0); Mean Platelet Volume 12.2 fL (9.4-12.3); Monocytes Absolute Auto 0.5 X10*3/uL (0.1-1.2); Monocytes Percent Auto 7.2 % (2-11); Neutrophils Absolute Auto 4.8 x10*3/uL (2.0-8.3); Neutrophils Percent Auto 64.5 % (45-73); Platelet Count 250 X10*3/uL (160-400); Red Blood Count 5.33 X10*6/uL (4.20-5.50); Red Cell Distribution Width 14.4 % (11.0-16.0); White Blood Count 7.4 X10*3/uL (4.8-10.8)
[2024-12-05 12:13] LABS: Estimated Average Glucose 197 mg/dL; Hemoglobin A1c % 8.5 % (<6.0)
--- OUTSIDE RECORDS SUMMARY | 2024-12-05 12:20 | XMS_ITS | Encounter Summary ---
Author Organization [facility] [employer] Address [address] [place] [address] Care Team Providers Care Rubber Ball Finisher Name Role Phone Alfredo Sanders MD Primary Care Provider [phone] Reason for Visit * Reason Onset Date Comments Referral 11/29/2024 Encounter Details Date Type Department Care Team ([facility] Contact Info) Description 11/29/2024 Telephone Endocrinology - [address] [phone] Dariela Childs PA [address] [place] [address] Referral Social History Tobacco Use Types Packs/Day Years Used Date Smoking Tobacco: Former Cigarettes Q uit: 01/31/2011 Smokeless Tobacco: Never Alcohol Use Standard Drinks/Week Comments No 0 (1 standard drink = 0.6 oz pur e alcohol) Comments Unknown Sex and Gender Information Value Date Recorded Sex Assigned at Not on file Legal Sex Female 8:27 AM EST Gender Identity Not on file Sexual Orientation Not on file documented as of this encounter Progress Notes * Karen Mae - 12/04/2024 4:12 PM EST 2nd vm left for pt * Karen Mae - 11/29/2024 3:22 PM EST Referral received for type 2 DM, from Dr. Po I have the notes First message left for pt to call back and schedule, with any provider documented in this encounter Plan of Treatment Upcoming Encounters Date Type Department Care Team (Late st Contact Info) Description 12/30/2024 8:40 AM EDT Consult Endocrinology - [address] [address] Maria E Ferrer PA [address] [place] [address] documented as of this encounter Visit Diagnoses Not on filedocumented in this encounter Care Teams Rubber Ball Finisher Relationship Specialty Start Date End Date Alfredo Sanders MD [address] [place] [address] [address] [facility] [place] [address] PCP - General Internal Medicine 04/01/19 documented as of this encounter
--- OUTSIDE RECORDS SUMMARY | 2024-12-05 12:20 | XMS_ITS | Clinical Summary ---
Author Organization [facility] Address [address] [place] [address] Care Team Providers Care Assessment Coordinator Name Role Phone Unavailable Primary Care Provider [...] Date Diagnosed Date PAD (peripheral artery disease) ([facility]) 2015 Overview (03/20/2016): With ulcer of right foot- Followed [facility] - [facility] Essential hypertension 03/08/2016 Diabetes mellitus [...] Plan of Treatment Not on file [place]
--- OUTSIDE RECORDS SUMMARY | 2024-12-05 12:21 | XMS_ITS | Clinical Summary ---
Author Organization [facility] Address [address] [place] [address] Phone Care Team Providers Care Gui Developer Name Role Phone Alfredo Sanders MD Primary Care Provider [phone] Allergies Active Allergy Reactions Criticality Noted Date Comments Cephalexin Monohydrate 06/08/2018 Other Reaction(s): Hives/Urticaria Medications alcohol swabs pads, medicated use as directed 12/04/19 10 Active ALPRAZolam (XANAX) 1 mg tablet TAKE 1 TABLET TWICE DAILY NEEDED 01/29/20 19 Active amLODIPine (NORVASC) 10 mg tablet Take 10 mg by mouth daily. 01/29/20 19 Active amoxicillin (AMOXIL) 500 mg capsule 4 capsules 1 hour before dental work 01/15/20 09 Active aspirin 81 mg EC tablet 1 TABLET DAILY Activ e atorvastatin (LIPITOR) 80 mg tablet Take 80 mg by mouth daily. Active pen needle, diabetic 32 gauge x 5/32 needle USE FOUR TIMES DAILY 01/29/20 19 Active cholecalciferol (VITAMIN D-3) 25 mcg (1,000 unit) tablet Take 1 Tab by mouth daily. 12/28/19 19 Active clotrimazole (LOTRIMIN) 1 % cream Apply to skin and toenails daily for 12 weeks 08/06/20 24 Active docusate sodium (COLACE) 100 mg capsule TAKE 1 CAPSULE BY MOUTH ONCE DAILY NEEDED 01/29/20 19 Active dulaglutide (Trulicity) 0.75 mg/0.5 mL pen injector injection Inject into the skin once a week. Active ferrous sulfate 325 mg (65 mg elemental iron) tablet Take 1 tablet by mouth 3 times daily. 10/27/19 12 Active glucose blood test strip USE TO TEST BS 3 TIMES A DAY OR DIRECTED BY PHYSICIAN 10/27/19 12 Active insulin lispro (HumaLOG KwikPen Insulin) 100 unit/mL injection pen INJECT INTO THE SKIN. 8 UNITS WITH EACH MEAL OR DIRECTED 08/12/20 11 Active insulin lispro (HumaLOG KwikPen Insulin) 200 unit/mL (3 mL) CONCENTRATED injection pen INJECT 20 TO 30 UNITS BEFORE MEALS THREE TIMES DAILY 01/29/20 19 Active insulin glargine U-300 conc (TOUJEO MAX SoloStar) 300 unit/mL (3 mL) CONCENTRATED injection pen Inject 50 Units into the skin daily. Active pen needle, diabetic 31 gauge x 5/16 needle Use up to 4 times daily for insulin 08/18/20 11 Active lisinopriL (PRINIVIL,ZESTRI L) 2.5 mg tablet TAKE 1 TABLET DAILY 08/16/20 11 Active metoprolol succinate (TOPROL-XL) 200 mg 24 hr tablet Take 1 Tab by mouth daily. 10/27/19 12 Active lancets lancets Use to test b/s tid 10/27/19 12 Active ranitidine HCl (ZANTAC 150 EFFERDOSE ORAL) ranitidine (ZANTAC) 150 MG tablet: TAKE 1 TABLET BY MOUTH TWICE DAILY 01/29/20 19 Active rosuvastatin (CRESTOR) 10 mg tablet Take 10 mg by mouth daily. 01/29/20 19 Active silver sulfADIAZINE (SSD) 1 % cream APPLY TO THE AFFECTED AREA(S) EVERY DAY 01/29/20 19 Active dulaglutide (Trulicity) 1.5 mg/0.5 mL pen injector injection INJECT ONE PEN (=1.5MG) SUBCUTANEOUSLY ONCE A WEEK DIRECTED 01/29/20 19 Active venlafaxine XR (EFFEXOR-XR) 150 mg 24 hr capsule TAKE 1 CAPSULE ONCE DAILY WITH FOOD 01/29/20 Active zolpidem (AMBIEN) 10 mg tablet TAKE 1 TABLET AT BEDTIME NEEDED 01/29/20 19 Active blood glucose control, normal (OneTouch Ultra Control) solution ONE TOUCH ULTRA CONTROL SOLN: as directed 12/09/19 06 Active Active Problems Problem Noted Date Diagnosed Date PAD (peripheral artery disease) 04/01/2019 Chronic venous insufficiency 06/08/2018 Nuclear sclerosis 09/02/2014 Overview (09/02/2024): Dr Barnes note 09-06-11 Microalbuminuria 09/02/2014 Type I (juvenile type) diabe [...] Encounters Date Type Department Care Team Description 11/29/[address]24 [address] [address] Dariela Childs PA Referral 10/29/2024 2:30 PM EST Office Visit Orthopedic Surgery - [address] [address] Moris Ingram, DPM Plantar fascial fibromatosis (Primary [...] 07/29/2008 DX :Non-compliance with treatment Myocardial infarct [place] 08/13/2008 DX: Myocardial infarct ([facility]); COMMENT: Inferior; 07/16; [place] Stroke ([facility]) 08/13/2008 DX:Stroke ([facility]) ; [...] 07/21/2010 DX:Other and unspecified hyperlipidemia Diabetic neuropathy ([facility]) 03/25/2011 DX :Diabetic neuropathy [facility] [...] on file Sexual Orientation Not on file Obstetrics History Last Filed [...] 12/30/2024 8:40 AM EDT Consult Endocrinology - [place] [address] [place] [address] Maria E Ferrer PA [address] [place] [address] Health Maintenance Due Date Last Done Comments Breast Cancer Screening 1969 Diabetes: Annual Foot Exam 1979 Diabetes: Annual Retina Eye Exam 1979 Cervical Cancer Screening: Pap Smear 01/13/2013 01/13/2010 Pneumococcal Vaccine: 50+ Years (2 of 2 - PCV) 12/26/2018 12/26/2017, 02/29/2012 Pneumococcal Vaccine: Pediatrics (0 to 5 Years) [...] patient's age to complete this topic Meningococcal B Vacine Aged Out No lo nger eligible based on patient's age to complete [...] talus navicular joint to calcaneal cuboid joint Result [facility] Moris Ingram DPM IMG XR PROCEDURES Final R esult * Urine Albumin Creatinine Ratio (03/25/2011) Pathologist [facility] Urine Albumin Creatinine Ratio Abstracted Result [facility] HEALTH MAINTENANCE Final Result * Annual BMP Blood Test (03/25/2011) Pathologist [facility] Annual BMP Blood Test Abstracted Result [facility] Provider HEALTH MAINTENANCE Final Result * (ABNORMAL) Hemoglobin A1c (03/25/2011) [facility] Hemoglobin A1C 11.9(A) 4.0 - 6.0 % Blood Venous blood specimen / Unknown Result [facility] Provider LAB BLOOD ORDERABLES Cassie l Result * (ABNORMAL) Lipid panel (03/25/2011) [facility] LDL/HDL Ratio 6(A) 0 - 4 Triglycerides 162(A) 0 - 150 mg/dL Cholesterol 254(A) 0 - 200 mg/dL HDL 45 >=40 mg/dL LDL Cholesterol 177(A) 0 - 100 mg/dL Blood Venous blood specimen / Unknown Result [facility] Provider LAB BLOOD ORDERABLES Cassie l Result * HIV Screening (01/13/2010) [facility] HIV Screening Abstracted Result [facility] Provider HEALTH MAINTENANCE Final Result * Hepatitis C Screening (01/13/2010) Hepatitis C Screening Abstracted us Historical Provider HEALTH MAINTENANCE Final Result * Pap Smear (01/13/2010) Pap smear Abstracted ,Negative us Historical Provider HEALTH MAINTENANCE Final Result from Last 3 Months or Most Recently Relevant to Health Maintenance Insurance [facility] [employer] Care Teams Gui Developer Relationship Specialty Start Date End Date Alfredo Sanders MD [address] [place] [address] [address] [facility] [place], [place] [id number] PCP - General Internal Medicine 04/01/19
--- OUTSIDE RECORDS SUMMARY | 2024-12-05 12:21 | XMS_ITS | Clinical Summary ---
Author Organization [facility] Address [address] [place] [address] Phone Care Team Providers Care Rotary Machine Operator Name Role Phone Alfredo Sanders MD Primary Care Provider [phone] Allergies Active Allergy Reactions Criticality Noted Date [...] 2024 1, 07/22/2010, 08/26/2008 Insurance Care Teams Rotary Machine Operator Relationship Specialty Start Date End Date Alfredo Sanders MD [address] [place], [place] PCP - General 10/19/20
[2024-12-05 12:46] LABS: Alanine Aminotransferase 29 U/L (0-31); Albumin Level 3.7 g/dL (3.5-5.0); Alkaline Phosphatase 104 U/L (39-117); Anion Gap 12 (12-20); Aspartate Amino Transferase 25 U/L (5-31); Bilirubin Total 0.3 mg/dL (0.0-1.0); Blood Urea Nitrogen 38 mg/dL (9-16); Calcium 10.1 mg/dL (8.4-10.2); Carbon Dioxide 20 mmol/L (22-29); Chloride 113 mmol/L (96-108); Cholesterol 124 mg/dL (<200); Estimated Glomerular Filt Rate 16; Glucose Random 142 mg/dL (60-115); HDL Cholesterol 40 mg/dL (>40); LDL Cholesterol Calculated 68 mg/dL (<100); Potassium 4.7 mmol/L (3.3-5.1); Sodium 140 mmol/L (135-145); Total Protein 7.5 g/dL (6.5-8.0); Triglycerides 84 mg/dL (<150)
[2024-12-05 13:00] LABS: Ferritin 58 ng/mL (10-250)
[2024-12-05 13:14] LABS: Folate 5.6 ng/mL (> or = 4.0); Vitamin B12 634 pg/mL (200-900)
== END 2024-12-05 10:32 | disposition home or self-care (01) ==
LOC: HO.HHCL 10:31
PROVIDERS: Internal Medicine Hypertension Specialist; Nurse Practitioner Family; Visit Provider Internal Medicine
DX: N18.4 Chronic kidney disease, stage 4 (severe) (principal); E78.2 Mixed hyperlipidemia; E78.00 Pure hypercholesterolemia, unspecified
CPT/HCPCS: 36415; 80053; 80061; 82607; 82728; 82746; 83036; 85025; 85027; 85045

== ENCOUNTER 2024-12-09 09:40 | Outpatient (AMB) | payer OTHER, SELFPAY ==
--- NOTE | 2024-12-09 09:44 | HO.NEPHOV ---
Vital Signs 12/09/24 09:47 Height 5 ft 6 in Weight 199 lb BMI 32.1 BP 138/76 Blood Pressure Location Rt brachial Position Sitting Pulse 61 Pulse Source Pulse Oximeter Pulse Oximetry (%) 97 Oxygen Delivery Method Room Air Intake Visit Reasons: 2 Months/ Conf Front Desk Host Required: No Accompanied by: Self / Same As Patient Allergies cephalexin [From KEFLEX] Allergy (Intermediate, Verified 12/09/24 09:48) HIVES HPI Comments Details: Jaclyn is a middle-aged woman with a history of longstanding diabetes mellitus complicated by CKD. She has stage IV CKD. Serum creatinine has been stable for the last several months. She is here for regular follow-up. She has history of recurrent hyperkalemia, this has been controlled since reducing losartan dose, she currently takes 50mg daily and is tolerating well. she reports some lower extremity swelling she states she has been eating canned soups with salt, though does make an effort to avoid salt with other meals and does a lot of cooking herself she notes some orthopnea at night, props herself up with her adjustable bed and manages well with this. She denies exertional dyspnea. she is drinking lots of fluids to stay well hydrated she states she has been more fatigued over the last several months she notes leg cramping that has worsened She was seen by general surgery for management of hypercalcemia and enlarged parathyroid gland on recent imaging. per surgery, given unclear if multiple hyperplasia or parathyroid source of hypercalcemia, she has been referred for formal endocrine evaluation, she is awaiting this appointment. she has been referred for transplant evaluation. She has also seen the dialysis educator. Pt is leaning toward HD rather than home dialysis should she need it. 08/20/24 ;Doing ok. Evaluated by Transplant 10/14/23; c/o low back pain - bilateral ; No urinary symptoms 12/09/24 Still with back pain Para Thryoid surgery was postponed [facility] Medical History Type 2 diabetes mellitus with hyperglycemia Colon cancer screening Skin tag Atherosclerotic cardiovascular disease Calcific tendinitis of right shoulder Adhesive capsulitis of right shoulder Back pain Upper respiratory infection Arm pain Dizziness Type 2 diabetes mellitus with unspecified complications Dyspnea on exertion SOB (shortness of breath) Gastroparesis Headache On anticoagulant therapy Hidradenitis suppurativa Pulmonary embolism Type 2 diabetes mellitus with chronic kidney disease Precordial chest pain Vitamin D deficiency HTN (hypertension) On beta jacqueline at home Axillary hidradenitis suppurativa Proliferative diabetic retinopathy associated with type 2 diabetes mellitus Diabetic polyneuropathy associated with type 2 diabetes mellitus Diabetic nephropathy associated with type 2 diabetes mellitus termite inspector (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 pylori infection Anxiety and depression Acute angle-closure glaucoma CVA (cerebral vascular accident) GERD (gastroesophageal reflux disease) Hypertension Coronary artery disease Hypercholesterolemia Obesity (BMI 30-39.9) Surgical History History of hysterectomy History of surgery (03/21/23) Hx of excision of mass History of axillary surgery History of axillary surgery (08/21/20) History of esophagogastroduodenoscopy (EGD) History of angioplasty History of cardiac catheterization (~03/30/16) S/P LILY-BSO History of endometrial ablation Amputation of right index finger History of tubal ligation Family History Mother Type 2 diabetes mellitus Hypertension Maternal Grandmother Myocardial infarction Paternal Grandmother History of breast cancer Social History Household Members: None Housing: Apartment Are you a primary plant health care technician to a significant other at home: No Do you presently have visiting nurse or other home services: No Alcohol intake: never Comment: medicated, see MAR Patient Tobacco Use Status: Former Tobacco user Tobacco use type: Cigarette e-Cigarette/Vaping Use: Never Used Second Hand Smoke Exposure: No Substance Use Type: Marijuana service: No Current occupational status: unemployed Cognitive needs: No Hearing needs: Yes (partially deaf ) Vision needs: Yes Physical Exam Vital Signs: Last Vital Signs Pulse 61 12/09/24 09:47 BP 138/76 12/09/24 09:47 Pulse Ox 97 12/09/24 09:47 Oxygen Delivery Method Room Air 12/09/24 09:47 BMI result Body Mass Index 32.1 Comfortable Neck supple no JVD. Lungs entry equal no rales. Heart S1-S2 heard no gallop or rub. Abdomen soft nontender. Neuro alert awake oriented. No asterixis. Extremities no edema. Results Reviewed Nephrology Results: Hgb 14.3 g/dl (12.0-16.0) 12/05/24 WBC 7.4 X10*3/uL (4.8-10.8) 12/05/24 Plt Count 250 X10*3/uL (160-400) 12/05/24 Sodium 140 mmol/L (135-145) 12/05/24 Potassium 4.7 mmol/L (3.3-5.1) 12/05/24 Chloride 113 mmol/L (96-108) H 12/05/24 Carbon Dioxide 20 mmol/L (22-29) L 12/05/24 BUN 38 mg/dL (9-16) H 12/05/24 Creatinine 3.00 mg/dL (0.5-1.4) H 12/05/24 Calcium 10.1 mg/dL (8.4-10.2) 12/05/24 PTH Intact 605.6 pg/mL (8.7-77.1) H 10/11/24 Assessment & Plan Assessment & Plan (1) Chronic kidney disease, stage 4 (severe): Code(s): N18.4 - Chronic kidney disease, stage 4 (severe) Category: Medical (2) Hyperparathyroidism: Code(s): E21.3 - Hyperparathyroidism, unspecified Category: Surgical (3) Essential hypertension: Code(s): I10 - Essential (primary) hypertension Category: Medical (4) Diabetic nephropathy associated with type 2 diabetes mellitus: Code(s): E11.21 - Type 2 diabetes mellitus with diabetic nephropathy Category: Medical Plan Jaclyn has stage IV CKD due to underlying diabetic nephropathy. Renal function is at baseline/stable. Goal is to slow the progression of renal disease. Continue to avoid nephrotoxic agents including NSAIDs. Encouraged her to stand low-sodium diet. Hemoglobin A1c should be maintained less than 7%. Most recent was 9.2%. She is amenable to working on healthy diet and reducing sugar/simple carbohydrates. Blood pressure slightly elevated today, pt states she is very nervous and is normally well-controlled. Will not make any changes today and will re-check in 6 weeks. She is working on getting a blood pressure cuff. We discussed importance of weight loss as well. She has no evidence of anemia. Hemoglobin was 15.7 in April. Recurrent hypercalcemia, most recent 10.6 in April Intact PTH has been progressively increasing. has primary hyperparathyroidism. parathyroid scan shows adenoma Referred to surgeon for possible parathyroidectomy- per surgery, given unclear if multiple hyperplasia or parathyroid source of hypercalcemia, she has been referred for formal endocrine evaluation. Await follow up from surgeon preemptive renal transplant evaluation. -not a candidate Pelvic MRI ordered due to pelvic mass Enhancing spiculated mass in the central pelvis measuring 3.2 x 3.0 x 2.6 cm which could represent a metastatic deposit. Correlation with oncologic history is recommended. CT of the chest, abdomen, and pelvis should be considered. Waiting to see She has seen a dialysis nurse educator and leaning toward intermittent HD vs home PD, but will continue to consider. From a renal stand point , No absolute contraindication for parathyroidectomy surgery Orders: Orders Parathyroid Hormone Intact 2 Months N18.4 - Chronic kidney disease, stage 4 (severe) Complete Blood Count no Diff 2 Months N18.4 - Chronic kidney disease, stage 4 (severe) Basic Metabolic Panel 2 Months N18.4 - Chronic kidney disease, stage 4 (severe) Coding Level of Care Code Est Pt Level 4 (03023) Diagnoses Chronic kidney disease, stage 4 (severe) N18.4 Hyperparathyroidism E21.3 Essential hypertension I10 Diabetic nephropathy associated with type 2 diabetes mellitus E11.21
[2024-12-09 09:47] VITALS: BP 138/76; PULSE 61; O2SAT 97; BMI 32.1
--- OUTSIDE RECORDS SUMMARY | 2024-12-09 10:45 | XMS_ITS | Clinical Summary ---
Author Organization [facility] Address [address] [place] [address] Phone Care Team Providers Care Plasma Processor Name Role Phone Alfredo Sanders MD Primary Care Provider [phone] Allergies Active Allergy Reactions Criticality Noted Date [...] Department Care Team Description 11/29/2024 Telephone Endocrinology [address] [address] Dariela Childs PA Referral 10/29/2024 2:30 PM EST Office Visit Orthopedic Surgery - [address] [address] Moris Ingram, DPM Plantar fascial [...] 07/29/2008 DX :Non-compliance with treatment Myocardial infarct ([facility]) 08/13/2008 DX: Myocardial infarct ([facility]); COMMENT: Inferior; 07/16; [place] Stroke ([facility]) 08/13/2008 DX:Stroke ([facility]) ; COMMENT: Left Cerebellar Tumors of [...] 07/21/2010 DX:Other and unspecified hyperlipidemia Diabetic neuropathy ([facility]) 03/25/2011 DX :Diabetic neuropathy ([facility]) Family History Medical History Relation Name [...] 12/30/2024 8:40 AM EDT Consult Endocrinology - [place] [address] [place] [address] Maria E Ferrer PA [address] [place] [address] Health Maintenance Due Date Last Done Comments [...] navicular joint to calcaneal cuboid joint Result [facility] Moris Ingram DPM IMG XR PROCEDURES Final R esult * Urine Albumin Creatinine Ratio (03/25/2011) Pathologist [facility] Urine Albumin Creatinine Ratio Abstracted Result [facility] HEALTH MAINTENANCE Final Result * Annual BMP Blood Test (03/25/2011) Pathologist [facility] Annual BMP Blood Test Abstracted Result [facility] Provider HEALTH MAINTENANCE Final Result * (ABNORMAL) Hemoglobin A1c (03/25/2011) [facility] Hemoglobin A1C 11.9(A) 4.0 - 6.0 % Blood Venous blood specimen / Unknown Result [facility] Provider LAB BLOOD ORDERABLES Cassie l Result * (ABNORMAL) Lipid panel (03/25/2011) [facility] LDL/HDL Ratio 6(A) 0 - 4 Triglycerides 162(A) 0 - 150 mg/dL Cholesterol 254(A) 0 - 200 mg/dL HDL 45 >=40 mg/dL LDL Cholesterol 177(A) 0 - 100 mg/dL Blood Venous blood specimen / Unknown Result [facility] Provider LAB BLOOD ORDERABLES Cassie l Result * HIV Screening (01/13/2010) [facility] HIV Screening Abstracted Result [facility] Provider HEALTH MAINTENANCE Final Result * Hepatitis C Screening (01/13/2010) Hepatitis C Screening Abstracted us Historical Provider HEALTH MAINTENANCE Final Result * Pap Smear (01/13/2010) Pap smear Abstracted ,Negative us Historical Provider HEALTH MAINTENANCE Final Result from Last 3 Months or Most Recently Relevant to Health Maintenance Insurance [facility] [employer] Care Teams Plasma Processor Relationship Specialty Start Date End Date Alfredo Sanders MD [address] [place] [address] [address] [facility] [place], [place] [id number] PCP - General Internal Medicine 04/01/19
--- OUTSIDE RECORDS SUMMARY | 2024-12-09 10:45 | XMS_ITS | Clinical Summary ---
Author Organization [facility] Address [address] [place] [address] Care Team Providers Care Criminal Justice Lawyer Name Role Phone Unavailable Primary Care Provider [...] Date Diagnosed Date PAD (peripheral artery disease) ([facility]) 2015 Overview (03/20/2016): With ulcer of right foot- Followed [facility] Essential hypertension 03/08/2016 Diabetes mellitus [...] Plan of Treatment Not on file Insurance [place]
--- OUTSIDE RECORDS SUMMARY | 2024-12-09 10:45 | XMS_ITS | Clinical Summary ---
Author Organization [employer] Address [address] [facility] [address] [place] [address] Care Team Providers Care Power Systems Engineer Name Role Phone Unavailable Primary Care Provider [...] older (1 - 1-dose 75+ series) 2044 HIB Vaccines Aged Out No longer eligi [...] Most Recently Relevant to Health Maintenance Insurance [facility] STAND ADULT
--- OUTSIDE RECORDS SUMMARY | 2024-12-09 10:45 | XMS_ITS | Clinical Summary ---
Author Organization [facility] Address [address] [place] [address] Phone Care Team Providers Care Software Architect Name Role Phone Alfredo Sanders MD Primary Care Provider Allergies Active Allergy Reactions Criticality Noted Date [...] Vaccine (#1) 2024 1, 07/22/2010, 08/26/2008 [place] [address] [place] [address] Care Teams Software Architect Relationship Specialty Start Date End Date Alfredo Sanders MD [address] [place], [place] PCP - General 10/19/20
--- OUTSIDE RECORDS SUMMARY | 2024-12-09 10:45 | XMS_ITS | Encounter Summary ---
Author Organization [employer] Address [address] [place] [address] Care Team Providers Care Cranberry Farm Supervisor Name Role Phone Alfredo Sanders MD Primary Care Provider [phone] Reason for Visit * Reason Onset Date Comments Referral 11/29/2024 Encounter Details Date Type Department Care Team ([facility] Contact Info) Description 11/29/2024 Telephone Endocrinology - [address] [phone] Dariela Childs PA [address] [place] [address] Referral Social History Tobacco Use Types Packs/Day [...] 12/30/2024 8:40 AM EDT Consult Endocrinology - [address] [address] Maria E Ferrer PA [address] [place] [address] documented as of this encounter Visit Diagnoses Not on filedocumented in this encounter Care Teams Cranberry Farm Supervisor Relationship Specialty Start Date End Date Alfredo Sanders MD [address] [place] [address] [address] [facility] [place] [address] PCP - General Internal Medicine 04/01/19 documented as of this encounter
== END 2024-12-09 10:06 | disposition home or self-care (01) ==
PROVIDERS: PCP Internal Medicine; Visit Provider Internal Medicine Hypertension Specialist
DX: I12.9 Hypertensive chronic kidney disease with stage 1 through stage 4 chronic kidney disease, or unspecified chronic kidney disease (principal); N18.4 Chronic kidney disease, stage 4 (severe); E21.3 Hyperparathyroidism, unspecified; E11.21 Type 2 diabetes mellitus with diabetic nephropathy
CPT/HCPCS: 99214

== ENCOUNTER → 2024-12-09 09:40 | Outpatient (BNVA) | payer OTHER, SELFPAY | PROVIDERS: PCP Internal Medicine; Visit Provider Internal Medicine Hypertension Specialist | DX: E11.65 Type 2 diabetes mellitus with hyperglycemia (principal); E11.22 Type 2 diabetes mellitus with diabetic chronic kidney disease; E11.42 Type 2 diabetes mellitus with diabetic polyneuropathy; E11.21 Type 2 diabetes mellitus with diabetic nephropathy; E11.3599 Type 2 diabetes mellitus with proliferative diabetic retinopathy without macular edema, unspecified eye; I12.9 Hypertensive chronic kidney disease with stage 1 through stage 4 chronic kidney disease, or unspecified chronic kidney disease; N18.4 Chronic kidney disease, stage 4 (severe); E87.5 Hyperkalemia; E21.3 Hyperparathyroidism, unspecified | CPT/HCPCS: 99212 ==

== ENCOUNTER 2024-12-12 10:27 | Outpatient (AMB) | payer OTHER, SELFPAY ==
[2024-12-12 10:47] VITALS: BP 140/82; PULSE 78; O2SAT 97; BMI 32.1
--- NOTE | 2024-12-12 10:47 | MHC.PC.OV ---
Vital Signs 12/12/24 10:47 Height 5 ft 6 in Weight 199 lb BMI 32.1 BP 140/82 H Blood Pressure Location Lt brachial Position Sitting Pulse 78 Pulse Source Pulse Oximeter Pulse Oximetry (%) 97 Oxygen Delivery Method Room Air Intake Visit Reasons: Diabetes mellitus and cholesterol Allergies cephalexin [From KEFLEX] Allergy (Intermediate, Verified 12/12/24 10:47) HIVES Tobacco use date assessed: 12/12/24 Dental Screening Dental Screen Date: 12/12/24 Did you have a dental visit in the last 12 months?: Yes Did you have a dental problem in the last 6 months where you did not have access to dental care?: No Was dental information given to patient?: Patient has dentist [facility] Medical History (Updated 12/12/24 @ 11:12 by Alfredo Sanders MD) Colon cancer screening Coronary artery dissection Type 2 diabetes mellitus with hyperglycemia Skin tag Atherosclerotic cardiovascular disease Calcific tendinitis of right shoulder Adhesive capsulitis of right shoulder Back pain Upper respiratory infection Arm pain Dizziness Type 2 diabetes mellitus with unspecified complications Dyspnea on exertion SOB (shortness of breath) Gastroparesis Headache On anticoagulant therapy Hidradenitis suppurativa Pulmonary embolism Type 2 diabetes mellitus with chronic kidney disease Precordial chest pain Vitamin D deficiency HTN (hypertension) On beta jacqueline at home Axillary hidradenitis suppurativa Proliferative diabetic retinopathy associated with type 2 diabetes mellitus Diabetic polyneuropathy associated with type 2 diabetes mellitus Diabetic nephropathy associated with type 2 diabetes mellitus 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 pylori infection Anxiety and depression Acute angle-closure glaucoma CVA (cerebral vascular accident) GERD (gastroesophageal reflux disease) Hypertension Coronary artery disease Hypercholesterolemia Obesity (BMI 30-39.9) Surgical History History of hysterectomy History of surgery (03/21/23) Hx of excision of mass History of axillary surgery History of axillary surgery (08/21/20) History of esophagogastroduodenoscopy (EGD) History of angioplasty History of cardiac catheterization (~03/30/16) S/P LILY-BSO History of endometrial ablation Amputation of right index finger History of tubal ligation Family History Mother Type 2 diabetes mellitus Hypertension Maternal Grandmother Myocardial infarction Paternal Grandmother History of breast cancer Social History Household Members: None Housing: Apartment Are you a primary acute care nurse to a significant other at home: No Do you presently have visiting nurse or other home services: No Alcohol intake: never Comment: medicated, see MAR Patient Tobacco Use Status: Former Tobacco user Tobacco use type: Cigarette e-Cigarette/Vaping Use: Never Used Second Hand Smoke Exposure: No Substance Use Type: Marijuana service: No Current occupational status: unemployed Cognitive needs: No Hearing needs: Yes (partially deaf ) Vision needs: Yes Questionnaire PHQ-9 Over the last 2 weeks, how often have you been bothered by any of the following problems? 1. Little interest or pleasure in doing things: several days 2. Feeling down, depressed, or hopeless: several days 3. Trouble falling or staying asleep, or sleeping too much: several days 4. Feeling tired or having little energy: several days 5. Poor appetite or overeating: several days 6. Feeling bad about yourself - or that you are a failure or have let yourself or your family down: not at all 7. Trouble concentrating on things, such as reading the newspaper or watching television: not at all 8. Moving or speaking so slowly that other people could have noticed. Or the opposite - being so fidgety or restless that you have been moving around a lot more than usual: not at all 9. Thoughts that you would be better off or of hurting yourself in some way: not at all Total score: 5 Depression Screening Interpretation: Positive Depression Screening Done: Yes 65681 - PHQ-9 Billing: Yes Source: Developed by Drs. Tushar Villar, Dinorah Ariza, Kobi Carver and colleagues, with an educational neto from [employer]. Thrive Questionnaire Date Thrive assessed: 12/12/24 I am a: Patient What is your living situation today?: I have a steady place to live Within the past 12 months, did the food you bought not last and you didn't have the money to get more?: Never true Within the past 12 months, did you worry whether your food would run out before you got money to buy more?: Never true Do you have trouble paying for medicines?: No Do you have trouble getting transportation to medical appointments?: No Do you have trouble paying your heating and electricity bill?: No Do you have trouble taking care of your child, family member or friend?: No Do you have trouble with day-to-day activities such as bathing, preparing meals, shopping, managing finances, etc.?: No Are you currently unemployed and looking for a job?: No Are you interested in more education?: No Currently or been in a relationship where the following occur: No concerns reported THRIVE Score: 0 AUDIT C Alcohol Use Questionnaire (AUDIT-C) 2. How many drinks containing alcohol do you have on a typical day when you are drinking?: 1 or 2 3. How often do you have six or more drinks on one occasion?: Never Total Score: 0 BRAXTON-7 AMB Questionnaire BRAXTON-7 Date BRAXTON - 7 assessed: 12/12/24 Feeling nervous, anxious, or on edge: 0 = Not at all Not being able to stop or control worryin = Not at all Worrying too much about different things: 0 = Not at all Trouble relaxin = Not at all Being so restless that it is hard to sit still: 0 = Not at all Becoming easily annoyed or irritable: 0 = Not at all Feeling afraid as if something awful might happen: 0 = Not at all Total BRAXTON-7 score (0-4 normal; 5-9 mild; 10-14 moderate; 15-21 severe): 0 Source: Developed by Drs. Tushar Villar, Dinorah Ariza, Kobi Carver and colleagues, with an educational neto from [employer]. Physical exam (Primary Care) Vital Signs: Last Vital Signs Pulse 78 12/12/24 10:47 BP 140/82 H 12/12/24 10:47 Pulse Ox 97 12/12/24 10:47 Oxygen Delivery Method Room Air 12/12/24 10:47 BMI result Body Mass Index 32.1 Tobacco/Smoking Status: Tobacco use Status Tobacco use date assessed 12/12/24 12/12/24 10:50 Patient Tobacco Use Status Former Tobacco user 12/12/24 10:50 Tobacco use type Cigarette 12/12/24 10:50 e-Cigarette/Vaping Use Never Used 12/12/24 10:50 PHQ-9: PHQ-9 Score PHQ-9: Total score 5 12/12/24 11:36 Depression Screening Interpretation: Positive Thrive Assessment: Date of Thrive Assessment Date Thrive assessed 12/12/24 12/12/24 10:50 Currently or been in a relationship where the following occur: No concerns reported Const General: alert; No acute distress Eyes Conjunctivae: conjunctivae normal Resp Auscultation: clear to auscultation bilaterally Cardio Rate: regular rate Rhythm: regular rhythm GI Inspection: Yes normal to inspection Extrem General: Yes normal to inspection and No edema Immunizations Recombivax HB (PF) 10 mcg/mL intramuscular suspension Performing Provider: Alfredo Sanders MD [facility] Administered by: Savanna Judd LPN on 12/12/24 11:36 Dose Route Admin Location Dispensed Lot Number Expiration Date [facility] Nat Instructor 1 mL IM Right Deltoid 1 mL [id number] 06/01/26 [id number] [employer] VIS Given Date VIS Provided VIS Publication Date 12/12/24 Single Vaccine 23 Eligibility Eligibility Date Funding Source Not [facility] Eligible 12/12/24 Private Coding Level of Care Code Est Pt Level 4 (61382) Complex EM visit Add On G2211 Diagnoses Ovarian mass, right N83.8 Type 2 diabetes mellitus with hyperglycemia, with long-term current use of insulin E11.65; Z79.4 Diabetes mellitus fci insulin use: with fci use Hyperparathyroidism E21.3 Chronic kidney disease, stage 4 (severe) N18.4 Essential hypertension I10 Coronary artery disease involving [place] coronary artery of [place] heart without angina pectoris I25.10 Associated angina: without angina Coronary Disease-Associated Artery/Lesion type: [place] artery [place] vs. transplanted heart: [place] mountain heart Gastroesophageal reflux disease without esophagitis K21.9 Esophagitis presence: without esophagitis Colon cancer screening Z12.11 Additional Codes PHQ-9 - 20432 - PHQ-9 Billing: Yes ([id number]) Assessment & Plan Assessment & Plan (1) Ovarian mass, right: Comment: CT scan [facility] July 08 mass lesion adjacent to the right common iliac bifurcation 2.9 cm x 2.4 cm previously 2.7 x 2 cm. Ill-defined soft tissue mass is now seen within the presacral region measuring 3.2 cm x 2.6 cm Code(s): N83.8 - Other noninflammatory disorders of ovary, fallopian tube and broad ligament Category: Medical Plan: Will be seeing Gynecology Dr. negro (2) Type 2 diabetes mellitus with hyperglycemia: Comment: IDDM, Dr. Nguyen and Calista Code(s): E11.65 - Type 2 diabetes mellitus with hyperglycemia Category: Medical Qualifiers: Diabetes mellitus fci insulin use: with fci use Qualified Code(s): E11.65 - Type 2 diabetes mellitus with hyperglycemia; Z79.4 - nursing home (current) use of insulin Plan: Decrease the amount of carbohydrate intake, pasta, bread, rice and potatoes are all sugar and that is aside from all the sweet stuff, remember that fruits are good but they are Sweet also. On Farxiga 10 mg once a day Toujeo insulin and short-acting insulin patient's hemoglobin A1c goal is less than 6.5. Bowen is going to see endo this month (3) Hyperparathyroidism: Code(s): E21.3 - Hyperparathyroidism, unspecified Category: Surgical Plan: Patient was advised to get the surgeon for parathyroidectomy. schedule in Feb, 2025 (4) Chronic kidney disease, stage 4 (severe): Code(s): N18.4 - Chronic kidney disease, stage 4 (severe) Category: Medical Plan: Patient follows up with Nephrology slowing down the progression but patient is being referred for renal replacement therapy. Need to get blood pressure under control need to get cholesterol down need to get diabetes under control. (5) Essential hypertension: Code(s): I10 - Essential (primary) hypertension Category: Medical Plan: Continue with blood pressure medication. Decrease salt intake and exercise on metoprolol 200 mg once a day losartan 50 mg once a day amlodipine 10 mg once a day. Ptient is being followed up bu Nephrology and will be seeing soon (6) Coronary artery disease: Comment: stent placement March 2016, echo March 2019 normal LV function, impaired relaxation Chest pains on and off-not like when she had the [place]. Sees Dr May. Intermediate risk for surgery. Code(s): I25.10 - Atherosclerotic heart disease of [place] coronary artery without angina pectoris Category: Medical Qualifiers: Associated angina: without angina Coronary Disease-Associated Artery/Lesion type: [place] artery [place] vs. transplanted heart: [place] heart Qualified Code(s): I25.10 - Atherosclerotic heart disease of [place] coronary artery without angina pectoris Plan: Control the cholesterol, weight, blood pressure, diabetes on aspirin 81 mg once a day (7) GERD (gastroesophageal reflux disease): Code(s): K21.9 - Gastro-esophageal reflux disease without esophagitis Category: Medical Qualifiers: Esophagitis presence: without esophagitis Qualified Code(s): K21.9 - Gastro-esophageal reflux disease without esophagitis Plan: Avoid the foods that causes that usually spicy foods, tomato products, juices, coffee, soda and foods that your sensitive to. After eating do not lie down, allow 3-4 hours before in lie down. And keep the head of bed above 30 degrees to avoid the acid from going up. (8) Colon cancer screening: Code(s): Z12.11 - Encounter for screening for malignant neoplasm of colon Category: Medical Plan History of Present Illness The patient is a 54-year-old female presenting with the need to manage several chronic medical conditions. Her diabetes is notably uncontrolled, requiring significant dietary and pharmacological intervention. Despite existing therapeutic regimens, including Farxiga, Tujayo insulin, and short-acting insulin, further efforts are required to attain an optimal hemoglobin A1c target below 6.5%. Hypertension remains suboptimal, managed with metoprolol, losartan, and amlodipine. Blood pressure control continues to be a pivotal goal in her therapeutic course. Chronic kidney disease, at stage 4, stems from longstanding diabetes, with creatinine levels at 3.0 mg/dL and an eGFR of 16 mL/min/1.73m?. Consideration for renal replacement therapy is ongoing, under nephrology guidance. Additionally, NSAID avoidance is endorsed. Hyperparathyroidism management includes surgical evaluation for a potential parathyroidectomy. Further guidance is necessary to ascertain treatment timelines. Discussion includes the monitoring of an ovarian mass detected on recent evaluation, with management directions to be determined based on forthcoming consultations. Her regimen includes aspirin prophylaxis for coronary artery disease and prior cerebrovascular events. The patient is current with mammography but has a colonoscopy pending. Health Maintenance - Annual mammography recommended (due but pending as of last visit). - Colonoscopy referral issued; completion status unknown. - Mammography and colon cancer screening advised in accordance with guidelines. - Continual blood pressure, cholesterol, and blood sugar monitoring. - Emphasis on glycemic control with A1c target < 6.5%. Social History Review of Systems - Cardiovascular: Reports controlled, but continued hypertension. - Endocrine: Reports diabetes management issues, requiring optimization. - Renal: Reports chronic kidney disease, stage 4. - Gastrointestinal: Reports a history of GERD, and chronic anemia. - Musculoskeletal: Denies acute issues. - Psychological: Reports generalized anxiety disorder symptoms. Physical Exam Results - Labs: Hemoglobin A1c at 8.5%; LDL cholesterol at 68 mg/dL; creatinine at 3.0 mg/dL with an eGFR of 16 mL/min/1.73m?. - Tests and Diagnostics: Ovarian mass identified; pending follow-up evaluations. Plan The patient will persist with the current antihypertensive regimen while enhanced focus on diabetic control is crucial, with Farxiga, insulin, and strategic glycemic monitoring planned. Continued nephrology consultation for chronic kidney disease includes preparation for potential renal replacement therapy, emphasizing NSAID avoidance. Surgical evaluation will guide hyperparathyroidism treatment. Management of the detected ovarian mass will be directed based on future evaluations. Aspirin therapy continues for cardiovascular health. Additionally, the importance of completing mammography and colonoscopy screenings is stressed. Patient was informed and verbally consented to the use of an ambient scribe for clinic note documentation during this visit. Discussion Notes During the visit, I discussed the challenges of managing the patient?s chronic conditions, emphasizing the importance of achieving better glycemic and blood pressure control. I outlined the management strategies for diabetes and hypertension, underscoring the essential goal of improved laboratory metrics. We reviewed the need for heightened awareness regarding chronic kidney disease management and the necessity for nephrology follow-up, while avoiding certain medications. The discussion covered surgical consultations for hyperparathyroidism and the implications therein. Lastly, I emphasized the importance of compliance with health maintenance screenings, reinforcing the protective role of medications like aspirin in cardiovascular health. Patient Instructions - Continue taking prescribed medications as directed: Farxiga, metoprolol, losartan, amlodipine, aspirin, and insulin. - Avoid NSAIDs to protect kidney function. - Follow through with surgical consultation for hyperparathyroidism. - Schedule and complete pending colonoscopy and mammography screenings. - Monitor blood pressure and blood sugar levels regularly. - Maintain a healthy diet and lifestyle to aid in overall health management. - Return for follow-up as scheduled or sooner if any new symptoms arise. Orders: Orders Hepatitis B Adult Immunization Today Z23 - Encounter for immunization
--- OUTSIDE RECORDS SUMMARY | 2024-12-12 12:28 | XMS_ITS | Clinical Summary ---
Author Organization [facility] Address [address] [place] [address] Phone Care Team Providers Care Meeting Facilitator Name Role Phone Alfredo Sanders MD Primary Care Provider [phone] Allergies Active Allergy Reactions Criticality Noted Date [...] 2024 1, 07/22/2010, 08/26/2008 Insurance Care Teams Meeting Facilitator Relationship Specialty Start Date End Date Alfredo Sanders MD [address] [place], [place] PCP - General 10/19/20
--- OUTSIDE RECORDS SUMMARY | 2024-12-12 12:28 | XMS_ITS | Clinical Summary ---
Author Organization [email or web address] Address [address] [facility] [address] [place] [address] Care Team Providers Care Agile Developer Name Role Phone Unavailable Primary Care Provider [...] Most Recently Relevant to Health Maintenance Insurance [facility] STAND ADULT
--- OUTSIDE RECORDS SUMMARY | 2024-12-12 12:28 | XMS_ITS | Clinical Summary ---
Author Organization [facility] Address [address] [place] [address] Care Team Providers Care Recordak Operator Name Role Phone Unavailable Primary Care Provider [...] Date PAD (peripheral artery disease) ([facility]) 2015 Overview (03/20/2016): With ulcer of right foot- Followed Garry [facility] [place] [facility] Essential hypertension 03/08/2016 Diabetes mellitus [...] Plan of Treatment Not on file Insurance [place]ID
--- OUTSIDE RECORDS SUMMARY | 2024-12-12 12:28 | XMS_ITS | Encounter Summary ---
Author Organization [facility] Address [address] [place] [address] Care Team Providers Care Field Representative Name Role Phone Alfredo Sanders MD Primary Care Provider Reason for Visit * Reason Onset Date Comments Referral 11/29/2024 Encounter Details Date Type Department Care Team ([facility] Contact Info) Description 11/29/2024 Telephone Endocrinology - [address] [phone] Dariela Childs PA [address] [place] [address] Referral Social History Tobacco Use Types Packs/Day [...] 12/30/2024 8:40 AM EDT Consult Endocrinology - [address] [phone] Marai E Ferrer PA [address] [place] [address] documented as of this encounter Visit Diagnoses Not on filedocumented in this encounter Care Teams Field Representative Relationship Specialty Start Date End Date Alfredo Sanders MD [address] [place] [address] Dr Orell[address] [facility] [place] [address] PCP - General Internal Medicine 04/01/19 documented as of this encounter
--- OUTSIDE RECORDS SUMMARY | 2024-12-12 12:29 | XMS_ITS | Clinical Summary ---
Author Organization [address] [facility] Address [address] [place] [address] Phone Care Team Providers Care Backend Tester Name Role Phone Alfredo Sanders MD Primary Care Provider [phone] Allergies Active Allergy Reactions Criticality Noted Date [...] Department Care Team Description 11/29/2024 Telephone Endocrinology [address] [address] Dariela Childs PA Referral 10/29/2024 2:30 PM EST Office Visit Orthopedic Surgery - [address] [address] Moris Ingram, DPM Plantar fascial [...] 07/29/2008 DX :Non-compliance with treatment Myocardial infarct ([facility]) 08/13/2008 DX: Myocardial infarct ([facility]); COMMENT: Inferior; 07/16; [place] Stroke ([facility]) 08/13/2008 DX:Stroke ([facility]) ; COMMENT: Left Cerebellar Tumors of body [...] 07/21/2010 DX:Other and unspecified hyperlipidemia Diabetic neuropathy ([facility]) 03/25/2011 DX :Diabetic neuropathy ([facility]) Family History Medical History Relation Name Comments [...] 12/30/2024 8:40 AM EDT Consult Endocrinology - [place] [address] [place] [address] Maria E Ferrer PA [address] [place] [address] Health Maintenance Due Date Last Done Comments [...] navicular joint to calcaneal cuboid joint Result [facility] Moris Ingram DPM IMG XR PROCEDURES Final R esult * Urine Albumin Creatinine Ratio (03/25/2011) Pathologist [facility] Urine Albumin Creatinine Ratio Abstracted Result [facility] HEALTH MAINTENANCE Final Result * Annual BMP Blood Test (03/25/2011) Pathologist [facility] Annual BMP Blood Test Abstracted Result [facility] Provider HEALTH MAINTENANCE Final Result * (ABNORMAL) Hemoglobin A1c (03/25/2011) [facility] Hemoglobin A1C 11.9(A) 4.0 - 6.0 % Blood Venous blood specimen / Unknown Result [facility] Provider LAB BLOOD ORDERABLES Cassie l Result * (ABNORMAL) Lipid panel (03/25/2011) [facility] LDL/HDL Ratio 6(A) 0 - 4 Triglycerides 162(A) 0 - 150 mg/dL Cholesterol 254(A) 0 - 200 mg/dL HDL 45 >=40 mg/dL LDL Cholesterol 177(A) 0 - 100 mg/dL Blood Venous blood specimen / Unknown Result [facility] Provider LAB BLOOD ORDERABLES Cassie l Result * HIV Screening (01/13/2010) [facility] HIV Screening Abstracted Result [facility] Provider HEALTH MAINTENANCE Final Result * Hepatitis C Screening (01/13/2010) Hepatitis C Screening Abstracted us Historical Provider HEALTH MAINTENANCE Final Result * Pap Smear (01/13/2010) Pap smear Abstracted ,Negative us Historical Provider HEALTH MAINTENANCE Final Result from Last 3 Months or Most Recently Relevant to Health Maintenance Insurance [id number] [employer] Care Teams Backend Tester Relationship Specialty Start Date End Date Alfredo Sanders MD [address] [place] [address] Dr Orellana [address] [facility] [place], [place] [id number] PCP - General Internal Medicine 04/01/19
== END 2024-12-12 11:42 | disposition home or self-care (01) ==
PROVIDERS: PCP Internal Medicine; Visit Provider Internal Medicine
DX: I12.9 Hypertensive chronic kidney disease with stage 1 through stage 4 chronic kidney disease, or unspecified chronic kidney disease (principal); E11.65 Type 2 diabetes mellitus with hyperglycemia; Z79.4 Long term (current) use of insulin; E21.3 Hyperparathyroidism, unspecified; N18.4 Chronic kidney disease, stage 4 (severe); N83.8 Other noninflammatory disorders of ovary, fallopian tube and broad ligament; I25.10 Atherosclerotic heart disease of native coronary artery without angina pectoris; K21.9 Gastro-esophageal reflux disease without esophagitis; Z12.11 Encounter for screening for malignant neoplasm of colon; Z23 Encounter for immunization

== ENCOUNTER → 2024-12-12 10:27 | Outpatient (BNVA) | payer OTHER, SELFPAY | PROVIDERS: PCP Internal Medicine; Visit Provider Internal Medicine | DX: Z23 Encounter for immunization (principal); N83.8 Other noninflammatory disorders of ovary, fallopian tube and broad ligament; E11.65 Type 2 diabetes mellitus with hyperglycemia; E21.3 Hyperparathyroidism, unspecified; I12.9 Hypertensive chronic kidney disease with stage 1 through stage 4 chronic kidney disease, or unspecified chronic kidney disease; E11.22 Type 2 diabetes mellitus with diabetic chronic kidney disease; N18.4 Chronic kidney disease, stage 4 (severe); K21.9 Gastro-esophageal reflux disease without esophagitis; I25.10 Atherosclerotic heart disease of native coronary artery without angina pectoris; Z79.4 Long term (current) use of insulin | CPT/HCPCS: 90471; 90746; 96127; 99212 ==

== ENCOUNTER 2024-12-23 08:46 | Outpatient (AMB) | payer OTHER, SELFPAY ==
[2024-12-23 08:54] VITALS: BP 140/76; PULSE 64; BMI 32.4
--- NOTE | 2024-12-23 08:54 | A.OFFVIS_ITS ---
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 Accompanied by: Self / Same As Patient Allergies cephalexin [From KEFLEX] Allergy (Intermediate, Verified 12/12/24 10:47) HIVES Medication List - Last Reconciled 12/23/24 by Zander May MD acetic acid 2% 3 drps otic (ear) left TID alcohol swabs 1 pad topical TID 90 days amlodipine 10 mg PO DAILY aspirin 81 mg PO DAILY blood pressure monitor (Blood Pressure Kit) As directed blood sugar diagnostic (FreeStyle Lite Strips) 4 times a day dapagliflozin propanediol (Farxiga) 10 mg PO DAILY dicyclomine 20 mg PO QID ezetimibe 10 mg PO DAILY fexofenadine 180 mg PO DAILY flash glucose scanning reader (FreeStyle Patrick 14 Day Silva) As directed flash glucose sensor (FreeStyle Patrick 14 Day Sensor kit) every 14 days FreeStyle Lite Meter (blood-glucose meter) 4 times a day NS glucose (Dex4 Glucose) 12 grams (3 x 4 gram) PO Q15M PRN insulin glargine U-300 conc (Toujeo Max U-300 SoloStar) 64 units (0.2133 mL) subcut DAILY 30 days insulin lispro 10-24 units20 units before meals (16 units light meals), + 2u for bg over 200, +4 unit bg >250, 10 u with snack. subcutaneously use as directed; 30 days lancets As directed 3x/day latanoprost 0.005% 1 drp ophthalmic (eye) BEDTIME losartan 50 mg PO DAILY metoprolol succinate ER 200 mg PO DAILY omeprazole 20 mg PO DAILY pen needle, diabetic 5 times a day rosuvastatin 20 mg PO BEDTIME sennosides (senna) 17.2 mg (2 x 8.6 mg) PO BEDTIME sertraline 25 mg PO DAILY zaleplon 10 mg PO BEDTIME HPI Comments Details: Phoebe returns for follow-up regarding various cardiac issues. 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 She was on anticoagulation with warfarin for a couple of years after that, but then stopped it as she did not want take anything. In March 2016, she was hospitalized once again for non ST elevation myocardial infarction and underwent cardiac catheterization and bare metal stenting to circumflex. Also carries a diagnosis of pulmonary embolism. Was on anticoagulation but not anymore. Lot of noncompliance in the past but she states that she is taking her medications regularly these days. Underwent kidney transplant evaluation but apparently told that she is not a candidate. Also has been diagnosed with a new pelvic mass and needs more testing for that. Since last seen, no new concerns. No cardiac symptoms. No angina. [facility] Medical History (Updated 12/12/24 @ 11:12 by Alfredo Sanders MD) Colon cancer screening Coronary artery dissection Type 2 diabetes mellitus with hyperglycemia Skin tag Atherosclerotic cardiovascular disease Calcific tendinitis of right shoulder Adhesive capsulitis of right shoulder Back pain Upper respiratory infection Arm pain Dizziness Type 2 diabetes mellitus with unspecified complications Dyspnea on exertion SOB (shortness of breath) Gastroparesis Headache On anticoagulant therapy Hidradenitis suppurativa Pulmonary embolism Type 2 diabetes mellitus with chronic kidney disease Precordial chest pain Vitamin D deficiency HTN (hypertension) On beta jacqueline at home Axillary hidradenitis suppurativa Proliferative diabetic retinopathy associated with type 2 diabetes mellitus Diabetic polyneuropathy associated with type 2 diabetes mellitus Diabetic nephropathy associated with type 2 diabetes mellitus 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 pylori infection Anxiety and depression Acute angle-closure glaucoma CVA (cerebral vascular accident) GERD (gastroesophageal reflux disease) Hypertension Coronary artery disease Hypercholesterolemia Obesity (BMI 30-39.9) Surgical History History of hysterectomy History of surgery (03/21/23) Hx of excision of mass History of axillary surgery History of axillary surgery (08/21/20) History of esophagogastroduodenoscopy (EGD) History of angioplasty History of cardiac catheterization (~03/30/16) S/P LILY-BSO History of endometrial ablation Amputation of right index finger History of tubal ligation Family History Mother Type 2 diabetes mellitus Hypertension Maternal Grandmother Myocardial infarction Paternal Grandmother History of breast cancer Social History Household Members: None Housing: Apartment Are you a primary adult daycare coordinator to a significant other at home: No Do you presently have visiting nurse or other home services: No Alcohol intake: never Comment: medicated, see MAR Patient Tobacco Use Status: Former Tobacco user Tobacco use type: Cigarette e-Cigarette/Vaping Use: Never Used Second Hand Smoke Exposure: No Substance Use Type: Marijuana service: No Current occupational status: unemployed Cognitive needs: No Hearing needs: Yes (partially deaf ) Vision needs: Yes Review of Systems Const Denies chills, Denies fatigue, Denies fever(s), Denies weight gain and Denies weight loss ENT Denies dizziness Card Denies chest pain, Denies leg edema, Denies lightheadedness, Denies palpitations, Denies dyspnea on exertion, Denies orthopnea and Denies other Resp Denies cough and Denies dyspnea on exertion GI Denies hematochezia and Denies change in stool character Musc Denies abnormal gait, Denies muscle weakness, Denies numbness, Denies radiating pain into limb and Denies tingling Neuro Denies abnormal gait, Denies dizziness, Denies numbness and Denies tingling Endo Denies fatigue and Denies palpitations Physical Exam Vital Signs: Last Vital Signs Pulse 64 12/23/24 08:54 BP 140/76 H 12/23/24 08:54 BMI result Body Mass Index 32.4 Const General: comfortable and no acute distress Orientation/consciousness: patient oriented x3 HEENT Other: Unremarkable Head: Yes normal to inspection Neck Neck: Yes normal visual inspection Chest Chest palpation & inspection: normal inspection of the chest Resp Auscultation: clear to auscultation bilaterally Cardio Palpation: normal PMI Heart sounds: S1 normal heart sound present, S2 normal heart sound present, no gallops, no murmurs and no rubs GI Palpation (GI): Soft to palpation Back/Spine/Pelvis Other: unremarkable Skin General skin exam: no rashes or lesions noted Neuro General: patient oriented x3 Extrem General: Yes normal to inspection Psych Mental Status: mental status grossly normal Assessment & Plan Assessment & Plan (1) Atherosclerotic cardiovascular disease: Code(s): I25.10 - Atherosclerotic heart disease of [place] coronary artery without angina pectoris Category: Medical Plan: Cardiac catheterization from 2016 reviewed. She had distal circumflex 100% stenosis with evidence of thrombus. Bare metal stent placed due to noncompliance. There was moderate stenosis in the mid LAD. Chronic dissection in the distal left anterior still seen. In the most recent echocardiogram, LVEF was described to be low at 35-40% with wall motion abnormalities consistent with ischemic heart disease. In the previous echocardiogram, LVEF was 54% but on review of images, there was no major change. Myocardial perfusion imaging study shows transmural infarct in the mid to distal inferolateral wall/adjacent apex with some ischemia in the mid inferolateral wall. Gated LVEF 60% during stress and 52% during rest. Clinically, no overt angina. Mainly risk factor modification with medications including aspirin, statins, Zetia. Last LDL 68 mg/dL. Triglycerides 84 mg/dL. (2) Coronary artery dissection: Code(s): I25.42 - Coronary artery dissection Category: Medical Plan: Stable. (3) Apical mural thrombus: Code(s): I51.3 - Intracardiac thrombosis, not elsewhere classified Category: Medical Plan: She was on warfarin in the past several years ago. In the last echocardiogram, no thrombus noted. (4) Cerebrovascular accident, embolic: Code(s): I63.9 - Cerebral infarction, unspecified Category: Medical Qualifiers: Precerebral and cerebral artery: unspecified cerebral artery Qualified Code(s): I63.40 - Cerebral infarction due to embolism of unspecified cerebral artery Plan: No residual deficit. (5) Essential hypertension: Code(s): I10 - Essential (primary) hypertension Category: Medical Plan: Borderline high blood pressures. No changes made today. (6) Type 2 diabetes mellitus with unspecified complications: Code(s): E11.8 - Type 2 diabetes mellitus with unspecified complications Category: Medical Plan: Generally higher than ideal hemoglobin A1c levels. Most recently 8.5%. Prior to this, 9.2%. In the past, more than 10%. Has been discussed many times. (7) Chronic kidney disease: Code(s): N18.9 - Chronic kidney disease, unspecified Category: Medical Plan: Last creatinine is 3. (8) Preoperative cardiovascular examination: Code(s): Z01.810 - Encounter for preprocedural cardiovascular examination Category: Medical Plan: Previously, we stated that she is at high cardiac risk for kidney transplant surgery. She states that she has been declined be enrolled in transplant list for cardiac reasons as well as because of a pelvic mass. Coding Level of Care Code Est Pt Level 4 (20763) Complex EM visit Add On G2211 Diagnoses Atherosclerotic cardiovascular disease I25.10 Coronary artery dissection I25.42 Apical mural thrombus I51.3 Cerebrovascular accident (CVA) due to embolism of cerebral artery I63.40 Precerebral and cerebral artery: unspecified cerebral artery Essential hypertension I10 Type 2 diabetes mellitus with unspecified complications E11.8 Chronic kidney disease N18.9 Preoperative cardiovascular examination Z01.810
--- OUTSIDE RECORDS SUMMARY | 2024-12-23 09:05 | XMS_ITS | Clinical Summary ---
Author Organization [employer] Address [address] [facility] [address] [place] [address] Care Team Providers Care Portfolio Administrator Name Role Phone Unavailable Primary Care Provider [...] to Health Maintenance Insurance [facility] MEDICAID STAND ADULT
--- OUTSIDE RECORDS SUMMARY | 2024-12-23 09:05 | XMS_ITS | Clinical Summary ---
Author Organization [facility] Address [address] [place] [address] Care Team Providers Care Multi Share Program Coordinator Name Role Phone Unavailable Primary Care [...] Date PAD (peripheral artery disease) ([facility]) 2015 Overview (03/20/2016): With ulcer of right foot- Followed [facility] [place] [facility] Essential hypertension 03/08/2016 Diabetes mellitus [...] Plan of Treatment Not on file Insurance [place] MEDICAID
--- OUTSIDE RECORDS SUMMARY | 2024-12-23 09:05 | XMS_ITS | Clinical Summary ---
Author Organization [facility] Address [address] [place] [address] Phone Care Team Providers Care Legal Mediator Name Role Phone Alfredo Sanders MD Primary Care Provider [phone] Allergies Active Allergy Reactions Criticality Noted Date [...] 2024 1, 07/22/2010, 08/26/2008 Insurance Care Teams Legal Mediator Relationship Specialty Start Date End Date Alfredo Sanders MD [address] [place], [place] PCP - General 10/19/20
--- OUTSIDE RECORDS SUMMARY | 2024-12-23 09:05 | XMS_ITS | Encounter Summary ---
Author Organization [facility] Address [address] [place] [address] Care Team Providers Care Corncob Pipe Manufacturing Supervisor Name Role Phone Alfredo Sanders MD Primary Care Provider [phone] Reason for Visit * Reason Onset Date Comments Referral 11/29/2024 Encounter Details Date Type Department Care Team ([facility] Contact Info) Description 11/29/2024 Telephone Endocrinology - [address] [phone] Dariela Childs PA [address] [place] [address] Referral Social History Tobacco Use Types Packs/Day [...] Care Team (Late st Contact Info) Description 01/07/2025 2:20 PM EDT Consult Endocrinology - [place] [address] [place] [phone] Maria E Ferrer PA [address] [place], [place] documented as of this encounter Visit Diagnoses Not on filedocumented in this encounter Care Teams Corncob Pipe Manufacturing Supervisor Relationship Specialty Start Date End Date Alfredo Sanders MD [address] [place] [address] Dr Orellana [address] [facility] [place] [address] PCP - General Internal Medicine 04/01/19 documented as of this encounter
--- OUTSIDE RECORDS SUMMARY | 2024-12-23 09:05 | XMS_ITS | Clinical Summary ---
Author Organization [facility] Address [address] [place] [address] Phone Care Team Providers Care Land Title Examiner Name Role Phone Alfredo Sanders MD Primary Care Provider [phone] Allergies Active Allergy Reactions Criticality Noted Date [...] Department Care Team Description 11/29/2024 Telephone Endocrinology [address] [address] Dariela Childs PA Referral 10/29/2024 2:30 PM EST Office Visit Orthopedic Surgery - [address] [address] Moris Ingram, DPM Plantar fascial [...] 07/29/2008 DX :Non-compliance with treatment Myocardial infarct ([facility]) 08/13/2008 DX: Myocardial infarct ([facility]); COMMENT: Inferior; 07/16; [place] Stroke ([facility]) 08/13/2008 DX:Stroke ([facility]) ; COMMENT: Left Cerebellar Tumors of body [...] 07/21/2010 DX:Other and unspecified hyperlipidemia Diabetic neuropathy ([facility]) 03/25/2011 DX :Diabetic neuropathy ([facility]) Family History Medical History Relation Name Comments [...] 01/07/2025 2:20 PM EDT Consult Endocrinology - [place] [address] [place] [address] Maria E Ferrer PA [address] [place] [address] Health Maintenance Due Date Last Done Comments [...] navicular joint to calcaneal cuboid joint Result [facility] Moris Ingram DPM IMG XR PROCEDURES Final R esult * Urine Albumin Creatinine Ratio (03/25/2011) Pathologist [facility] Urine Albumin Creatinine Ratio Abstracted Result [facility] HEALTH MAINTENANCE Final Result * Annual BMP Blood Test (03/25/2011) Pathologist [facility] Annual BMP Blood Test Abstracted Result [facility] Provider HEALTH MAINTENANCE Final Result * (ABNORMAL) Hemoglobin A1c (03/25/2011) [facility] Hemoglobin A1C 11.9(A) 4.0 - 6.0 % Blood Venous blood specimen / Unknown Result [facility] Provider LAB BLOOD ORDERABLES Cassie l Result * (ABNORMAL) Lipid panel (03/25/2011) [facility] LDL/HDL Ratio 6(A) 0 - 4 Triglycerides 162(A) 0 - 150 mg/dL Cholesterol 254(A) 0 - 200 mg/dL HDL 45 >=40 mg/dL LDL Cholesterol 177(A) 0 - 100 mg/dL Blood Venous blood specimen / Unknown Result [facility] Provider LAB BLOOD ORDERABLES Cassie l Result * HIV Screening (01/13/2010) [facility] HIV Screening Abstracted Result [facility] Provider HEALTH MAINTENANCE Final Result * Hepatitis C Screening (01/13/2010) Hepatitis C Screening Abstracted us Historical Provider HEALTH MAINTENANCE Final Result * Pap Smear (01/13/2010) Pap smear Abstracted ,Negative us Historical Provider HEALTH MAINTENANCE Final Result from Last 3 Months or Most Recently Relevant to Health Maintenance Insurance [facility] [employer] Care Teams Land Title Examiner Relationship Specialty Start Date End Date Alfredo Sanders MD [address] [place] [address] Dr Orellana [address] [facility] [place], [place] [id number] PCP - General Internal Medicine 04/01/19
== END 2024-12-23 09:32 | disposition home or self-care (01) ==
LOC: HO.HCS 08:47
PROVIDERS: PCP Internal Medicine; Visit Provider Internal Medicine
DX: I25.10 Atherosclerotic heart disease of native coronary artery without angina pectoris (principal); I25.42 Coronary artery dissection; I51.3 Intracardiac thrombosis, not elsewhere classified; I63.40 Cerebral infarction due to embolism of unspecified cerebral artery; I12.9 Hypertensive chronic kidney disease with stage 1 through stage 4 chronic kidney disease, or unspecified chronic kidney disease; E11.8 Type 2 diabetes mellitus with unspecified complications; N18.9 Chronic kidney disease, unspecified; Z01.810 Encounter for preprocedural cardiovascular examination
CPT/HCPCS: 99214; G2211

== ENCOUNTER → 2024-12-23 08:46 | Outpatient (BNVA) | payer OTHER, SELFPAY | PROVIDERS: PCP Internal Medicine; Visit Provider Internal Medicine | DX: Z01.810 Encounter for preprocedural cardiovascular examination (principal); I25.42 Coronary artery dissection; I51.3 Intracardiac thrombosis, not elsewhere classified; E11.22 Type 2 diabetes mellitus with diabetic chronic kidney disease; I10 Essential (primary) hypertension; I12.9 Hypertensive chronic kidney disease with stage 1 through stage 4 chronic kidney disease, or unspecified chronic kidney disease; N18.9 Chronic kidney disease, unspecified; I25.10 Atherosclerotic heart disease of native coronary artery without angina pectoris; Z87.891 Personal history of nicotine dependence; Z86.73 Personal history of transient ischemic attack (TIA), and cerebral infarction without residual deficits | CPT/HCPCS: 99212 ==

== ENCOUNTER 2024-12-24 12:25 | Outpatient (REF) | payer OTHER, SELFPAY ==
[2024-12-25 09:04] LABS: CA-125 11 U/mL (<35); Carbohydrate Antigen 19-9 4 U/mL (<34)
== END 2024-12-24 12:26 | disposition home or self-care (01) ==
LOC: HO.LAB 12:25
PROVIDERS: PCP Internal Medicine; Visit Provider Obstetrics & Gynecology
DX: R19.00 Intra-abdominal and pelvic swelling, mass and lump, unspecified site (principal); N83.299 Other ovarian cyst, unspecified side
CPT/HCPCS: 36415; 82378; 86301; 86304; 99202

== ENCOUNTER 2024-12-24 12:25 | Outpatient (AMB) | payer OTHER, SELFPAY ==
--- NOTE | 2024-12-24 12:26 | MHC.OFFVIS ---
Vital Signs 12/24/24 12:30 Height 5 ft 6 in Weight 200 lb BMI 32.3 Intake Visit Reasons: MRI Pelvic follow up Stripper Black And White Required: No Information Interpreted: non-clinical & clinical Accompanied by: Self / Same As Patient Allergies cephalexin [From KEFLEX] Allergy (Intermediate, Verified 12/24/24 12:31) HIVES Post menopausal: Yes HPI Comments Details: The patient is presenting referred from PCP regarding a new onset pelvic mass identified on CT scan, pelvic ultrasound and pelvic MRI. The patient has no symptoms . 07/02 CT scan done at [facility] showed a new presacral mass 08/01 pelvic ultrasound showed the following: IMPRESSION: A structure documented in the right adnexa may or may not represent right ovary. Alternatively finding could represent bowel loop. No adnexal mass is noted otherwise. Consider pelvic MRI with contrast for more detailed and conclusive evaluation of the ovaries and adnexa.' 09/01 pelvic MRI showed the following: IMPRESSION: Enhancing spiculated mass in the central pelvis measuring 3.2 x 3.0 x 2.6 cm which could represent a metastatic deposit. Correlation with oncologic history is recommended. CT of the chest, abdomen, and pelvis should be considered. 11/02 mammogram BI-RADS 1 [facility] Medical History (Updated 12/24/24 @ 12:52 by Ervin Farmer MD) Colon cancer screening Coronary artery dissection Type 2 diabetes mellitus with hyperglycemia Skin tag Atherosclerotic cardiovascular disease Calcific tendinitis of right shoulder Adhesive capsulitis of right shoulder Back pain Upper respiratory infection Arm pain Dizziness Type 2 diabetes mellitus with unspecified complications Dyspnea on exertion SOB (shortness of breath) Gastroparesis Headache On anticoagulant therapy Hidradenitis suppurativa Pulmonary embolism Type 2 diabetes mellitus with chronic kidney disease Precordial chest pain Vitamin D deficiency HTN (hypertension) On beta jacqueline at home Axillary hidradenitis suppurativa Proliferative diabetic retinopathy associated with type 2 diabetes mellitus Diabetic polyneuropathy associated with type 2 diabetes mellitus Diabetic nephropathy associated with type 2 diabetes mellitus 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 pylori infection Anxiety and depression Acute angle-closure glaucoma CVA (cerebral vascular accident) GERD (gastroesophageal reflux disease) Hypertension Coronary artery disease Hypercholesterolemia Obesity (BMI 30-39.9) Surgical History (Updated 12/24/24 @ 12:52 by Ervin Farmer MD) Status post hysterectomy with oophorectomy History of hysterectomy History of surgery (03/21/23) Hx of excision of mass History of axillary surgery History of axillary surgery (08/21/20) History of esophagogastroduodenoscopy (EGD) History of angioplasty History of cardiac catheterization (~03/30/16) History of endometrial ablation Amputation of right index finger History of tubal ligation Family History Mother Type 2 diabetes mellitus Hypertension Maternal Grandmother Myocardial infarction Paternal Grandmother History of breast cancer Social History Household Members: None Housing: Apartment Are you a primary family day carer to a significant other at home: No Do you presently have visiting nurse or other home services: No Alcohol intake: never Comment: medicated, see MAR Patient Tobacco Use Status: Former Tobacco user Tobacco use type: Cigarette e-Cigarette/Vaping Use: Never Used Second Hand Smoke Exposure: No Substance Use Type: Marijuana service: No Current occupational status: unemployed Cognitive needs: No Hearing needs: Yes (partially deaf ) Vision needs: Yes Physical Exam Vital Signs: BMI result Body Mass Index 32.3 Assessment & Plan Assessment & Plan (1) Pelvic mass: Code(s): R19.00 - Intra-abdominal and pelvic swelling, mass and lump, unspecified site Category: Medical Plan: Discussed with the patient the finding on CT scan , pelvic ultrasound and pelvic MRI, possible differential diagnosis were discussed with the patient. Will order tumor markers including CEA, CA 125 and CA 19-9 and refer to supervisor mechanic boilermaking Oncology at [facility] for further management. The patient has an appointment at [facility] Clinical Studies Specialist Oncology with Dr. Gentile, on 01/07/2025 at 09:00 , the patient is aware. Orders: Orders CA-125 Today N83.299 - Other ovarian cyst, unspecified side Carcinoembryonic Antigen Today N83.299 - Other ovarian cyst, unspecified side Carbohydrate Antigen 19-9 Today N83.299 - Other ovarian cyst, unspecified side Referrals Gynecologic Oncology Referral R19.00 - Intra-abdominal and pelvic swelling, mass and lump, unspecified site Coding Level of Care Code New Pt Level 3 (79259) Diagnoses Pelvic mass R19.00
[2024-12-24 12:30] VITALS: BMI 32.3
--- OUTSIDE RECORDS SUMMARY | 2024-12-24 14:41 | XMS_ITS | Encounter Summary ---
Author Organization [facility] Address [address] [place] [address] Care Team Providers Care Parer Name Role Phone Alfredo Sanders MD Primary Care Provider [phone] Reason for Visit * Reason Onset Date Comments Referral 11/29/2024 Encounter Details Date Type Department Care Team ([facility] Contact Info) Description 11/29/2024 Telephone Endocrinology - [address] [phone] Dariela Childs PA [address] [place] [address] Referral Social History Tobacco Use Types Packs/Day [...] 01/07/2025 2:20 PM EDT Consult Endocrinology - [place] [address] [place] [phone] Maria E Ferrer PA [address] [place], [place] documented as of this encounter Visit Diagnoses Not on filedocumented in this encounter Care Teams Parer Relationship Specialty Start Date End Date Alfredo Sanders MD [address] [place] [address] Dr Orellana [address] [facility] [place] [address] PCP - General Internal Medicine 04/01/19 documented as of this encounter
--- OUTSIDE RECORDS SUMMARY | 2024-12-24 14:41 | XMS_ITS | Clinical Summary ---
Author Organization [employer] Address [address] [facility] 7[address] [place] [address] Care Team Providers Care Trial Justice Name Role Phone Unavailable Primary Care Provider [...] Most Recently Relevant to Health Maintenance Insurance [facility] [place]
--- OUTSIDE RECORDS SUMMARY | 2024-12-24 14:41 | XMS_ITS | Clinical Summary ---
Author Organization [facility] Address [address] [place] [address] Phone Care Team Providers Care Stitch Rubber Name Role Phone Alfredo Sanders MD Primary Care Provider [phone] Allergies Active Allergy Reactions Criticality Noted Date [...] 2024 1, 07/22/2010, 08/26/2008 Insurance Care Teams Stitch Rubber Relationship Specialty Start Date End Date Alfredo Sanders MD [address] [place], [place] PCP - General 10/19/20
--- OUTSIDE RECORDS SUMMARY | 2024-12-24 14:41 | XMS_ITS | Clinical Summary ---
Author Organization [facility] Address [address] [place] [address] Care Team Providers Care Spanish Teacher Name Role Phone Unavailable Primary Care Provider [...] Diagnosed Date PAD (peripheral artery disease) ([facility]) 2015 Overview (03/20/2016): With ulcer of right foot- Followed [facility] - [place] [facility] Essential hypertension 03/08/2016 Diabetes mellitus [...] Plan of Treatment Not on file Insurance [place] MEDICAID
--- OUTSIDE RECORDS SUMMARY | 2024-12-24 14:41 | XMS_ITS | Clinical Summary ---
Author Organization [address] [facility] Address [address] [place] [address] Phone Care Team Providers Care Orchid Hand Name Role Phone Alfredo Sanders MD Primary Care Provider [phone] Allergies Active Allergy Reactions Criticality Noted Date [...] Department Care Team Description 11/29/2024 Telephone Endocrinology [address] [phone] Dariela Childs PA Referral 10/29/2024 2:30 PM EST Office Visit Orthopedic Surgery - [address] [address] Moris Ingram, DPM Plantar fascial [...] 07/29/2008 DX :Non-compliance with treatment Myocardial infarct ([facility]) 08/13/2008 DX: Myocardial infarct ([facility]); COMMENT: Inferior; 07/16; [place] Stroke ([facility]) 08/13/2008 DX:Stroke ([facility]) ; COMMENT: Left Cerebellar Tumors of [...] and unspecified hyperlipidemia Diabetic neuropathy ([facility]) 03/25/2011 DX :Diabetic neuropathy ([facility]) Family History Medical History Relation Name [...] 01/07/2025 2:20 PM EDT Consult Endocrinology - [place] [address] [place] [address] Maria E Ferrer PA [address] [place] [address] Health Maintenance Due Date Last Done Comments [...] navicular joint to calcaneal cuboid joint Result [facility] Moris Ingram DPM IMG XR PROCEDURES Final R esult * Urine Albumin Creatinine Ratio (03/25/2011) Pathologist [facility] Urine Albumin Creatinine Ratio Abstracted Result [facility] HEALTH MAINTENANCE Final Result * Annual BMP Blood Test (03/25/2011) Pathologist [facility] Annual BMP Blood Test Abstracted Result [facility] Provider HEALTH MAINTENANCE Final Result * (ABNORMAL) Hemoglobin A1c (03/25/2011) [facility] Hemoglobin A1C 11.9(A) 4.0 - 6.0 % Blood Venous blood specimen / Unknown Result [facility] Provider LAB BLOOD ORDERABLES Cassie l Result * (ABNORMAL) Lipid panel (03/25/2011) [facility] LDL/HDL Ratio 6(A) 0 - 4 Triglycerides 162(A) 0 - 150 mg/dL Cholesterol 254(A) 0 - 200 mg/dL HDL 45 >=40 mg/dL LDL Cholesterol 177(A) 0 - 100 mg/dL Blood Venous blood specimen / Unknown Result [facility] Provider LAB BLOOD ORDERABLES Cassie l Result * HIV Screening (01/13/2010) [facility] HIV Screening Abstracted Result [facility] Provider HEALTH MAINTENANCE Final Result * Hepatitis C Screening (01/13/2010) Hepatitis C Screening Abstracted us Historical Provider HEALTH MAINTENANCE Final Result * Pap Smear (01/13/2010) Pap smear Abstracted ,Negative us Historical Provider HEALTH MAINTENANCE Final Result from Last 3 Months or Most Recently Relevant to Health Maintenance Insurance [facility] [employer] PL[employer] Care Teams Orchid Hand Relationship Specialty Start Date End Date Alfredo Sanders MD [address] [place] [address] Dr [address] [facility] [place], [place] [id number] PCP - General Internal Medicine 04/01/19
== END 2024-12-24 13:38 | disposition home or self-care (01) ==
LOC: HO.HWS 12:25
PROVIDERS: PCP Internal Medicine; Visit Provider Obstetrics & Gynecology
DX: R19.00 Intra-abdominal and pelvic swelling, mass and lump, unspecified site (principal)
CPT/HCPCS: 99203

== ENCOUNTER 2025-01-01 13:21 | Outpatient (REF) | payer OTHER, SELFPAY ==
--- OUTSIDE RECORDS SUMMARY | 2025-01-01 15:51 | XMS_ITS | Clinical Summary ---
Author Organization [employer] Address [address] [facility] 7t [place] [address] Care Team Providers Care Unit Leader Name Role Phone Unavailable Primary Care Provider [...] Most Recently Relevant to Health Maintenance Insurance [facility] [place] ST[place]
--- OUTSIDE RECORDS SUMMARY | 2025-01-01 15:51 | XMS_ITS | Clinical Summary ---
Author Organization [facility] Address [address] [place] [address] Phone Care Team Providers Care Crepe Box Tender Name Role Phone Alfredo Sanders MD Primary Care Provider [phone] Allergies Active Allergy Reactions Criticality Noted Date [...] 2024 1, 07/22/2010, 08/26/2008 Insurance Care Teams Crepe Box Tender Relationship Specialty Start Date End Date Alfredo Sanders MD [address] [place], [place] PCP - General 10/19/20
--- OUTSIDE RECORDS SUMMARY | 2025-01-01 15:51 | XMS_ITS | Clinical Summary ---
Author Organization [address] [facility] Address [address] [place] [address] Phone Care Team Providers Care Youth Minister Name Role Phone Alfredo Sanders MD Primary Care Provider [phone] Allergies Active Allergy Reactions Criticality Noted Date [...] Department Care Team Description 11/29/2024 Telephone Endocrinology [address] [address] Dariela Childs PA Referral 10/29/2024 2:30 PM EST Office Visit Orthopedic Surgery - [address] [address] Moris Ingram, DPM Plantar fascial [...] 07/29/2008 DX :Non-compliance with treatment Myocardial infarct ([facility]) 08/13/2008 DX: Myocardial infarct ([facility]); COMMENT: Inferior; 07/16; [place] Stroke ([facility]) 08/13/2008 DX:Stroke ([facility] [...] 07/21/2010 DX:Other and unspecified hyperlipidemia Diabetic neuropathy ([facility]) 03/25/2011 DX :Diabetic neuropathy [...] Care Team (Late st Contact Info) Description 01/22/2025 8:40 AM EDT Consult Endocrinology - [place] [address] [place] [address] Maria E Ferrer PA [address] [place] [address] Health Maintenance Due Date Last Done Comments [...] navicular joint to calcaneal cuboid joint Result [facility] Moris Ingram DPM IMG XR PROCEDURES Final R esult * Urine Albumin Creatinine Ratio (03/25/2011) Pathologist [facility] Urine Albumin Creatinine Ratio Abstracted Result [facility] HEALTH MAINTENANCE Final Result * Annual BMP Blood Test (03/25/2011) Pathologist [facility] Annual BMP Blood Test Abstracted Result [facility] Provider HEALTH MAINTENANCE Final Result * (ABNORMAL) Hemoglobin A1c (03/25/2011) [facility] Hemoglobin A1C 11.9(A) 4.0 - 6.0 % Blood Venous blood specimen / Unknown Result [facility] Provider LAB BLOOD ORDERABLES Cassie l Result * (ABNORMAL) Lipid panel (03/25/2011) [facility] LDL/HDL Ratio 6(A) 0 - 4 Triglycerides 162(A) 0 - 150 mg/dL Cholesterol 254(A) 0 - 200 mg/dL HDL 45 >=40 mg/dL LDL Cholesterol 177(A) 0 - 100 mg/dL Blood Venous blood specimen / Unknown Result [facility] Provider LAB BLOOD ORDERABLES Cassie l Result * HIV Screening (01/13/2010) [facility] HIV Screening Abstracted Result [facility] Provider HEALTH MAINTENANCE Final Result * Hepatitis C Screening (01/13/2010) Hepatitis C Screening Abstracted us Historical Provider HEALTH MAINTENANCE Final Result * Pap Smear (01/13/2010) Pap smear Abstracted ,Negative us Historical Provider HEALTH MAINTENANCE Final Result from Last 3 Months or Most Recently Relevant to Health Maintenance Insurance [facility] [employer] PL[employer] Care Teams Youth Minister Relationship Specialty Start Date End Date Alfredo Sanders MD [address] [place] [address] [address] [facility] [place], [place] [id number] PCP - General Internal Medicine 04/01/19
--- OUTSIDE RECORDS SUMMARY | 2025-01-01 15:51 | XMS_ITS | Encounter Summary ---
Author Organization [employer] Address [address] [place] [address] Care Team Providers Care Admitted Attorneys Name Role Phone Alfredo Sanders MD Primary Care Provider [phone] Reason for Visit * Reason Onset Date Comments Referral 11/29/2024 Encounter Details Date Type Department Care Team ([facility] Contact Info) Description 11/29/2024 Telephone Endocrinology - [address] [phone] Dariela Childs PA [address] [place] [address] Referral Social History Tobacco Use Types Packs/Day [...] 01/22/2025 8:40 AM EDT Consult Endocrinology - [address] [address] Maria E Ferrer PA [address] [place] [address] documented as of this encounter Visit Diagnoses Not on filedocumented in this encounter Care Teams Admitted Attorneys Relationship Specialty Start Date End Date Alfredo Sanders MD [address] [place] [address] [address] [facility] [place] [address] PCP - General Internal Medicine 04/01/19 documented as of this encounter
--- OUTSIDE RECORDS SUMMARY | 2025-01-01 15:51 | XMS_ITS | Clinical Summary ---
Author Organization [facility] Address [address] [place] [address] Care Team Providers Care Federal Judge Name Role Phone Unavailable Primary Care Provider [...] Date Diagnosed Date PAD (peripheral artery disease) ([facility]) 2015 Overview (03/20/2016): With ulcer of right foot- Followed Garry Disla - [place] [facility] Essential hypertension 03/08/2016 Diabetes mellitus [...] Plan of Treatment Not on file Insurance [place] MEDICAID
[2025-01-01 16:10] LABS: Hematocrit 44.9 % (37.0-47.0); Hemoglobin 14.9 g/dl (12.0-16.0); Mean Corpuscular HGB Conc 33.2 g/dl (31.0-35.0); Mean Corpuscular Hemoglobin 26.6 pg (27.0-33.0); Mean Platelet Volume 11.2 fL (9.4-12.3); Platelet Count 273 X10*3/uL (160-400); Red Blood Count 5.61 X10*6/uL (4.20-5.50); Red Cell Distribution Width 14.4 % (11.0-16.0); White Blood Count 7.8 X10*3/uL (4.8-10.8)
[2025-01-01 16:19] LABS: Anion Gap 11 (12-20); Blood Urea Nitrogen 33 mg/dL (9-16); Calcium 10.6 mg/dL (8.4-10.2); Carbon Dioxide 22 mmol/L (22-29); Chloride 110 mmol/L (96-108); Estimated Glomerular Filt Rate 18; Glucose Random 164 mg/dL (60-115); Potassium 4.5 mmol/L (3.3-5.1); Sodium 138 mmol/L (135-145)
[2025-01-01 16:52] LABS: Parathyroid Hormone Intact 620.4 pg/mL (8.7-77.1)
== END 2025-01-01 13:22 | disposition home or self-care (01) ==
LOC: HO.HHCL 13:21
PROVIDERS: Internal Medicine Hypertension Specialist; Visit Provider Obstetrics & Gynecology
DX: N18.4 Chronic kidney disease, stage 4 (severe) (principal)
CPT/HCPCS: 36415; 80048; 83970; 85027

== ENCOUNTER 2025-02-10 12:56 | Outpatient (REF) | payer OTHER, SELFPAY ==
--- OUTSIDE RECORDS SUMMARY | 2025-02-10 14:19 | XMS_ITS | Clinical Summary ---
Author Organization [facility] Address [address] [place] [address] Care Team Providers Care Director Of Employer Services Name Role Phone Unavailable Primary Care Provider [...] Date Diagnosed Date PAD (peripheral artery disease) ([facility]) 0 03/20/2016 Overview (03/20/2016): With ulcer of right foot- Followed Garry Disla - [place] [facility] Essential hypertension 03/08/2016 Diabetes mellitus [...] Plan of Treatment Not on file Insurance [place]ICA[place]
--- OUTSIDE RECORDS SUMMARY | 2025-02-10 14:19 | XMS_ITS | Clinical Summary ---
Author Organization [facility] Address [address] [place] [address] Phone Care Team Providers Care Anesthesiologist Physician Name Role Phone Alfredo Sanders MD Primary Care Provider [phone] Allergies Active Allergy Reactions Criticality Noted Date [...] treatment 07/29/2008 Iron deficiency anemia 12/26/2005 Immunizations Immunization Administration Dates Next Due H1N1 Inj Preservative [...] Last Done Comments Breast Cancer Screening 1969 Hepatitis B Vaccine (1 of 3 - 19+ 3-dose series) 1988 Pneumococcal Vaccine: 50+ Ye ars (1 of 2 - PCV) 1988 Colorectal Cancer Screening: Annual FOBT 2018 Colorectal Cancer Screening: Colonoscopy 2018 Colorectal Cancer Screening: Sigmoidoscopy 2018 Diabetes: Hemoglobin A1C 11/06/2020 Diabetes: Ophthalmology Exam 11/06/2020, 01/20/2010, 09/11/2008, Additional history exists Diabetes: Pedal Pulse Checked 11/06/2020 Diabetes: Sensory Foot Exam 11/06/2020 Diabetes: Visual Foot Exam 11/06/2020 Influenza Vaccine (Season Ended) 2025 07/18/2011, 07/22/2010, 08/26/2008 Insurance Care Teams Anesthesiologist Physician Relationship Specialty Start Date End Date Alfredo Sanders MD [facility] [address] [place], [place] PCP - General 10/19/20
--- OUTSIDE RECORDS SUMMARY | 2025-02-10 14:19 | XMS_ITS | Clinical Summary ---
Author Organization [address] [facility] Address [address] [place] [address] Phone Care Team Providers Care Counter Top Maker Name Role Phone Alfredo Sanders MD Primary Care Provider [phone] Allergies Active Allergy Reactions Criticality Noted Date Comments Cephalexin Hives,Other 03/08/2016 Hives Cephalexin Monohydrate 06/08/2018 Other Reaction(s): Hives/Urticaria Nsaids (Non-Steroidal Anti-Inflammatory Drug) Hives 06/08/2018 Medications alcohol swabs pads, medicated use as directed 12/04/19 10 Active amLODIPine (NORVASC) 10 mg tablet Take 10 mg by mouth daily. 01/29/20 19 Active amoxicillin (AMOXIL) 500 mg capsule 4 capsules 1 hour before dental work 01/15/20 09 Active aspirin 81 mg EC tablet 1 TABLET DAILY Activ e pen needle, diabetic 32 gauge x 532 needle USE FOUR TIMES DAILY 01/29/20 19 Active cholecalciferol (VITAMIN D-3) 25 mcg (1,000 unit) tablet Take 1 Tab by mouth daily. 12/28/19 19 Active clotrimazole (LOTRIMIN) 1 % cream Apply to skin and toenails daily for 12 weeks 08/06/20 24 Active docusate sodium (COLACE) 100 mg capsule TAKE 1 CAPSULE BY MOUTH ONCE DAILY NEEDED 01/29/20 19 Active glucose blood test strip USE TO TEST BS 3 TIMES A DAY OR DIRECTED BY PHYSICIAN 10/27/19 12 Active pen needle, diabetic 31 gauge x 5/16 needle Use up to 4 times daily for insulin 08/18/20 11 Active metoprolol succinate (TOPROL-XL) 200 mg 24 hr tablet Take 1 Tab by mouth daily. 10/27/19 12 Active lancets lancets Use to test b/s tid 10/27/19 12 Active ranitidine HCl (ZANTAC 150 EFFERDOSE ORAL) ranitidine (ZANTAC) 150 MG tablet: TAKE 1 TABLET BY MOUTH TWICE DAILY 01/29/20 Active rosuvastatin (CRESTOR) 10 mg tablet Take 10 mg by mouth daily. 01/29/20 Active blood glucose control, normal (OneTouch Ultra Control) solution ONE TOUCH ULTRA CONTROL SOLN: as directed 12/09/19 06 Active Farxiga 10 mg tablet Take 1 tablet (10 mg total) by mouth 1 (one) time each day. Active losartan (COZAAR) 50 mg tablet Take 1 tablet (50 mg total) by mouth 1 (one) time each day. 05/13/20 24 Active ezetimibe (ZETIA) 10 mg tablet Take 1 tablet (10 mg total) by mouth 1 (one) time each day. Active omeprazole (PriLOSEC) [address] capsule Take 1 capsule (20 mg total) by mouth 1 (one) time each day. 10/17/19 25 Active latanoprost (XALATAN) 0.005 % ophthalmic solution Administer 1 drop into both eyes at bedtime. 07/10/20 24 Active bisacodyL (DULCOLAX) 5 mg EC tablet Take 2 tablets (10 mg total) by mouth 1 (one) time each day if needed. at bedtime 09/25/20 24 Active zaleplon (SONATA) 10 mg capsule Take 1 capsule (10 mg total) by mouth at bedtime as needed. Max Daily Amount: 10 mg 01/08/20 25 Active sertraline (ZOLOFT) 25 mg tablet Take 1 tablet (25 mg total) by mouth 1 (one) time each day. 01/10/20 25 Active senna 8.6 mg tablet Take 2 tablets (17.2 mg total) by mouth at bedtime. at bedtime 12/27/19 25 Active LORazepam (ATIVAN) 1 mg tablet Take 0.5-1 tablets (0.5-1 mg total) by mouth every other day. PRN Max Daily Amount: 1 mg 07/29/20 24 Active FreeStyle Patrick 2 Sensor kit Apply 1 EA topically every 14 (fourteen) days. 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 1 each 01/23/20 25 Active blood-glucose sensor (FreeStyle Patrick 3 Plus Sensor) deviceIndication s:Type II or unspecified type diabetes mellitus with ophthalmic manifestations, uncontrolled(250 .52) ([facility] V24, [facility] V28) Change sensor every 15 days. 6 each 1 01/23/20 25 Active insulin glargine U-300 conc (TOUJEO MAX SoloStar) 300 unit/mL (3 mL) CONCENTRATED injection pen Use 68 units at bedtime 01/23/20 25 Active insulin lispro (HumaLOG KwikPen Insulin) 100 unit/mL injection pen Use three times a day before meals: <70 units, 71-100: 5 units, 101-150: 10 units, 151-200: 15 units, 201-250: 20 units, 251-300: 25 units, 301-350: 28 units, 351-400: 30 units, >400: use 32 units 01/23/20 25 Active ALPRAZolam (XANAX) 1 mg tablet TAKE 1 TABLET TWICE DAILY NEEDED 01/29/20 Discontin ued(Thera py completed ) atorvastatin (LIPITOR) 80 mg tablet Take 80 mg by mouth daily. Discontin ued(Alter luis therapy) dulaglutide (Trulicity) 0.75 mg/0.5 mL pen injector injection Inject into the skin once a week. Discontin ued(Alter luis therapy) ferrous sulfate 325 mg (65 mg elemental iron) tablet Take 1 tablet by mouth 3 times daily. 10/27/19 12 025 Discontin ued(Thera py completed ) insulin lispro (HumaLOG KwikPen Insulin) 100 unit/mL injection pen INJECT INTO THE SKIN. 8 UNITS WITH EACH MEAL OR DIRECTED 11/04/20 11 04/16/2 025 Discontin ued(Reord er) insulin lispro (HumaLOG KwikPen Insulin) 200 unit/mL (3 mL) CONCENTRATED injection pen INJECT 20 TO 30 UNITS BEFORE MEALS THREE TIMES DAILY 01/29/20 19 025 Discontin ued(Dupli cindy order) insulin glargine U-300 conc (TOUJEO MAX SoloStar) 300 unit/mL (3 mL) CONCENTRATED injection pen Inject 50 Units into the skin daily. 025 Discontin ued(Reord er) lisinopriL (PRINIVIL,ZESTRI L) 2.5 mg tablet TAKE 1 TABLET DAILY 08/16/20 Discontin ued(Alter luis therapy) silver sulfADIAZINE (SSD) 1 % cream APPLY TO THE AFFECTED AREA(S) EVERY DAY 01/29/20 Discontin ued(Thera py completed ) dulaglutide (Trulicity) 1.5 mg/0.5 mL pen injector injection INJECT ONE PEN (=1.5MG) SUBCUTANEOUSLY ONCE A WEEK DIRECTED 01/29/20 025 Discontin ued(Alter luis therapy) venlafaxine XR (EFFEXOR-XR) 150 mg 24 hr capsule TAKE 1 CAPSULE ONCE DAILY WITH FOOD 01/29/20 025 Discontin ued(Alter luis therapy) zolpidem (AMBIEN) 10 mg tablet TAKE 1 TABLET AT BEDTIME NEEDED 01/29/20 025 Discontin ued(Alter luis therapy) Active Problems Problem Noted Date Diagnosed Date Hyperparathyroidism ([facility] V24) 01/22/2025 Primary hypertension 01/22/2025 Stage 4 chronic kidney disease (CMS/HCC V24, CMS /HCC V28) 01/22/2025 PAD (peripheral artery disease) ([facility] V24) Chronic venous insufficiency 06/08/2018 Nuclear sclerosis 09/02/2014 Overview (09/02/2024): Dr Barnes note 11-29-11 Microalbuminuria 09/02/2014 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, not stated as uncontrolled(250.41) ([facility] V24, [facility] V28) 09/02/2014 Secondary diabetes mellitus with neurological manifestations, 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) ([facility] V24, [facility] V28) 09/02/2014 Diabetic neuropathy ([facility] V24, [facility] V28) 0 03/25/2011 Hyperlipidemia 07/21/2010 Carpal tunnel syndrome 11/24/2008 Overview (09/02/2024): Bilateral; L>R Uterine fibroid 08/26/2008 Stroke ([facility] V24, [facility] V28) 08/13/2008 Overview (09/02/2024): Left Cerebellar; 07/16; LV thrombus Myocardial infarct ([facility] V24, [facility] V28) Overview (09/02/2024): Inferior; Left Ventricular Thrombus;07/16; [place] Type II or unspecified type diabetes mellitus with ophthalmic manifestations, 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) ([facility] V24, [facility] V28) 06/23/2007 Iron deficiency anemia 12/26/2005 Encounters Date Type Department Care Team Description 01/22/2025 8:40 AM EDT Consult Endocrinology - [address] [phone] Maria E Ferrer PA Type II or unspecified type diabetes mellitus with ophthalmic manifestations, 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) ([facility] V24, [facility] V28) (Primary Dx); Primary hypertension; Stage 4 chronic kidney disease ([facility] V24, [facility] V28); Hyperparathyroidism ([facility] V24); Hyperlipidemia, unspecified hyperlipidemia type 11/29/2024 Telephone Endocrinology - [address] [phone] Dariela Childs PA Referral from Last 3 Months Immunizations Name Administration [...] 07/29/2008 DX :Non-compliance with treatment Myocardial infarct ([facility] V24, [facility] V28) 08/13/2008 DX:Myocardial infarct ([facility]); COMMENT: Inferior; 07/16; [place] Stroke ([facility] V24, [facility] V28) 08/13/2008 DX:Stroke ([facility]); COMMENT: Left Cerebellar Tumors of body of [...] 07/21/2010 DX:Other and unspecified hyperlipidemia Diabetic neuropathy ([facility] V24, [facility] V28) 03/25/2011 DX:Diabetic neuropathy ([facility]) Family History Medical History Relation Name [...] = 0.6 oz pur e alcohol) Comments No Sex and Gender Information Value Date Recorded Sex Assigned at Not on file Legal Sex Female 8:27 AM EST Gender Identity Not on file Sexual Orientation Not on file Obstetrics History Last Filed Vital Signs Vital Sign Reading Time Taken Comments Blood Pressure 108/78 01/22/2025 8:44 AM EDT C Pulse 63 01/22/2025 8:44 AM EDT Temperature 36.2 ??C (97.2 ??F) 01/22/2025 8:44 AM ED T Respiratory Rate - - Oxygen Saturation 98% 01/22/2025 8:44 AM EDT Inhaled Oxygen Concentration - - Weight 90.5 kg (199 lb 9.6 oz) 01/22/2025 8:44 A M EDT Height 167.6 cm (5' 6 ) 01/22/2025 8:44 AM EDT Body Mass Index 32.22 01/22/2025 8:44 AM EDT Plan of Treatment Health Maintenance Due [...] of 2) 2019 COVID-19 Vaccine (3 - Moderna risk series) 10/26/2021 09/28/2021, 08/30/2021 Cholesterol Screening (Lipid Panel) 09/11/2022 03/25/2011 Colorectal Cancer Screening: Colonoscopy 09/11/2022 Depression Screening 09/11/2022 Lung Cancer Screening (Low Dose CT) 09/11/2022 Social Influencers of Health Screening 09/11/2022 Diabetes: Annual Urine Albumin-Creatinine Ratio (uACR) 09/24/2022 03/25/2011 Diabetes: Annual GFR (Glomerular Filtration Rate) 06/30/2024 06/30/2023, 03/25/2011 Hypertension/CHF/CAD Annual BMP Blood Test 10/29/2024 06/30/2023, 03/25/2011 Diabetes: Blood Sugar Control Test (HGBA1C) 07/24/2025 01/22/2025, 03/25/2011 DTaP,Tdap,and Td Vaccines (4 - Td or Tdap) 04/07/2027 04/07/2017, 02/29/2012, 12/04/2009 HIV Screening Completed 01/13/2010 Hepatitis C Screening Completed 01/13/2010 MMR Vaccines Aged Out 05/31/2024 No longer eligi ble based on patient's age to complete this topic Influenza Vaccine Completed 07/16/2024, , 08/31/2022, Additional history exists Hepatitis B Vaccines Completed 12/12/2024, 07/23/2024, 06/11/2024 HIB Vaccines Aged Out No longer eligi [...] age to complete this topic Meningococcal B Vaccine Aged Out No l onger eligible based on patient's age to complete this topic RSV Immunization Patients Under 20 months Aged Out No longer eligible based on patient's age to complete this topic Varicella Vaccines Aged Out No longer eligible based on patient's age to complete this topic Procedures Procedure Name Priority Date/Time Associated Diagnosis Comments HEMOGLOBIN A1C Routine 01/22/2025 9:42 AM EDT Type II or unspecified type diabetes mellitus with ophthalmic manifestations, 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) ([facility] V24, [facility] V28) URINE ALBUMIN CREATININE RATIO Routine 03/25/2011 ANNUAL BMP BLOOD TEST Routine 03/25/2011 LIPID PANEL Routine 03/25/2011 HEPATITIS C SCREENING Routine 01/13/2010 HIV SCREENING Routine 01/13/2010 PAP SMEAR Routine 01/13/2010 from Last 3 Months or Most Recently Relevant to Health Maintenance Results * (ABNORMAL) Hemoglobin A1c (01/22/2025 9:42 AM EDT) Hemoglobin A1C 8.8(H) <6.5 % LAB CHEMISTRY METHOD 01/22/2025 2:08 PM EDT [facility] Mean Bld Glu Estim. 206 mg/dL LAB CHEMISTRY METHOD 01/22/2025 2:08 PM EDT [facility] Blood Venous blood specimen / Unknown Venipuncture / Unknown 01/22/2025 9:42 AM EDT 01/22/2025 9:42 AM EDT Result [facility] Maria E BARRON LAB BLOOD ORDERABLES Final Resul t [facility] [address] [place] [address], [place] [phone] * Urine Albumin Creatinine Ratio (03/25/2011) [facility] Urine Albumin Creatinine Ratio Abstracted Result [facility] Provider HEALTH MAINTENANCE Final Result * Annual BMP Blood Test (03/25/2011) [facility] Annual BMP Blood Test Abstracted Result [facility] Provider HEALTH MAINTENANCE Final Result * (ABNORMAL) Lipid panel (03/25/2011) [facility] LDL/HDL Ratio 6(A) 0 - 4 Triglycerides 162(A) 0 - 150 mg/dL Cholesterol 254(A) 0 - 200 mg/dL HDL 45 >=40 mg/dL LDL Cholesterol 177(A) 0 - 100 mg/dL Blood Venous blood specimen / Unknown Result [facility] Provider LAB BLOOD ORDERABLES Cassie l Result * HIV Screening (01/13/2010) [facility] HIV Screening Abstracted Result [facility] Provider HEALTH MAINTENANCE Final Result * Hepatitis C Screening (01/13/2010) [facility] Hepatitis C Screening Abstracted [facility] Provider HEALTH MAINTENANCE Final Result * Pap Smear (01/13/2010) Pap smear Abstracted ,Negative us Historical Provider HEALTH MAINTENANCE Final Result from Last 3 Months or Most Recently Relevant to Health Maintenance Insurance [facility] [employer] Care Teams Counter Top Maker Relationship Specialty Start Date End Date Alfredo Sanders MD [address] [place] [address] [address] [facility] [place] [address] PCP - General Internal Medicine 04/01/19
--- OUTSIDE RECORDS SUMMARY | 2025-02-10 14:19 | XMS_ITS | Clinical Summary ---
Author Organization [employer] Address [address] [facility] [address] [place] [address] Care Team Providers Care Director Of Food And Nutrition Name Role Phone Unavailable Primary Care Provider [...] Most Recently Relevant to Health Maintenance Insurance [facility] STAND ADULT
[2025-02-10 16:23] LABS: Hematocrit 45.4 % (37.0-47.0); Hemoglobin 14.4 g/dl (12.0-16.0); Mean Corpuscular HGB Conc 31.7 g/dl (31.0-35.0); Mean Corpuscular Hemoglobin 25.9 pg (27.0-33.0); Mean Corpuscular Volume 81.5 fL (80.0-98.0); Mean Platelet Volume 12.1 fL (9.4-12.3); Platelet Count 308 X10*3/uL (160-400); Red Blood Count 5.57 X10*6/uL (4.20-5.50); Red Cell Distribution Width 15.2 % (11.0-16.0); White Blood Count 9.4 X10*3/uL (4.8-10.8)
[2025-02-10 16:49] LABS: Anion Gap 13 (12-20); Blood Urea Nitrogen 36 mg/dL (9-16); Calcium 10.8 mg/dL (8.4-10.2); Carbon Dioxide 20 mmol/L (22-29); Chloride 112 mmol/L (96-108); Estimated Glomerular Filt Rate 16; Glucose Random 67 mg/dL (60-115); Potassium 4.6 mmol/L (3.3-5.1); Sodium 140 mmol/L (135-145)
[2025-02-10 16:56] LABS: Parathyroid Hormone Intact 733.6 pg/mL (8.7-77.1)
== END 2025-02-10 12:57 | disposition home or self-care (01) ==
LOC: HO.HHCL 12:56
PROVIDERS: Visit Provider Internal Medicine Hypertension Specialist
DX: N18.4 Chronic kidney disease, stage 4 (severe) (principal)
CPT/HCPCS: 36415; 80048; 83970; 85027

== ENCOUNTER 2025-02-11 09:57 | Outpatient (AMB) | payer OTHER, SELFPAY ==
[2025-02-11 10:11] VITALS: BP 124/68; PULSE 54; O2SAT 98; BMI 32.1
--- NOTE | 2025-02-11 10:11 | HO.NEPHOV ---
Vital Signs 02/11/25 10:11 Height 5 ft 6 in Weight 199 lb BMI 32.1 BP 124/68 Blood Pressure Location Lt brachial Position Sitting Pulse 54 Pulse Oximetry (%) 98 Intake Visit Reasons: 2 MO FU/ LVM Operations Advisor Required: No Accompanied by: Self / Same As Patient Allergies cephalexin [From KEFLEX] Allergy (Intermediate, Verified 02/11/25 10:14) HIVES HPI Comments Details: Jaclyn is a middle-aged woman with a history of longstanding diabetes mellitus complicated by CKD. She has stage IV CKD. Serum creatinine has been stable for the last several months. She is here for regular follow-up. She has history of recurrent hyperkalemia, this has been controlled since reducing losartan dose, she currently takes 50mg daily and is tolerating well. she reports some lower extremity swelling she states she has been eating canned soups with salt, though does make an effort to avoid salt with other meals and does a lot of cooking herself she notes some orthopnea at night, props herself up with her adjustable bed and manages well with this. She denies exertional dyspnea. she is drinking lots of fluids to stay well hydrated she states she has been more fatigued over the last several months she notes leg cramping that has worsened She was seen by general surgery for management of hypercalcemia and enlarged parathyroid gland on recent imaging. per surgery, given unclear if multiple hyperplasia or parathyroid source of hypercalcemia, she has been referred for formal endocrine evaluation, she is awaiting this appointment. she has been referred for transplant evaluation. She has also seen the dialysis educator. Pt is leaning toward HD rather than home dialysis should she need it. 08/20/24 ;Doing ok. Evaluated by Transplant 10/14/23; c/o low back pain - bilateral ; No urinary symptoms 12/09/24;Still with back pain;Para Thryoid surgery was postponed 02/11/25 Underwent salpingooophorectomy- recovered well Parathyroid surgery oh hold- next visit in few weeks [facility] Medical History (Updated 12/24/24 @ 12:52 by Ervin Farmer MD) Colon cancer screening Coronary artery dissection Type 2 diabetes mellitus with hyperglycemia Skin tag Atherosclerotic cardiovascular disease Calcific tendinitis of right shoulder Adhesive capsulitis of right shoulder Back pain Upper respiratory infection Arm pain Dizziness Type 2 diabetes mellitus with unspecified complications Dyspnea on exertion SOB (shortness of breath) Gastroparesis Headache On anticoagulant therapy Hidradenitis suppurativa Pulmonary embolism Type 2 diabetes mellitus with chronic kidney disease Precordial chest pain Vitamin D deficiency HTN (hypertension) On beta jacqueline at home Axillary hidradenitis suppurativa Proliferative diabetic retinopathy associated with type 2 diabetes mellitus Diabetic polyneuropathy associated with type 2 diabetes mellitus Diabetic nephropathy associated with type 2 diabetes mellitus residential (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 pylori infection Anxiety and depression Acute angle-closure glaucoma CVA (cerebral vascular accident) GERD (gastroesophageal reflux disease) Hypertension Coronary artery disease Hypercholesterolemia Obesity (BMI 30-39.9) Surgical History (Updated 02/11/25 @ 10:14 by MIKEL Durand) S/P removal of left ovary (~01/2025) Status post hysterectomy with oophorectomy History of hysterectomy History of surgery (03/21/23) Hx of excision of mass History of axillary surgery History of axillary surgery (08/21/20) History of esophagogastroduodenoscopy (EGD) History of angioplasty History of cardiac catheterization (~03/30/16) History of endometrial ablation Amputation of right index finger History of tubal ligation Family History Mother Type 2 diabetes mellitus Hypertension Maternal Grandmother Myocardial infarction Paternal Grandmother History of breast cancer Social History Household Members: None Housing: Apartment Are you a primary district manager primary care sales to a significant other at home: No Do you presently have visiting nurse or other home services: No Alcohol intake: never Comment: medicated, see MAR Patient Tobacco Use Status: Former Tobacco user Tobacco use type: Cigarette e-Cigarette/Vaping Use: Never Used Second Hand Smoke Exposure: No Substance Use Type: Marijuana service: No Current occupational status: unemployed Cognitive needs: No Hearing needs: Yes (partially deaf ) Vision needs: Yes Physical Exam Vital Signs: Last Vital Signs Pulse 54 02/11/25 10:11 BP 124/68 02/11/25 10:11 Pulse Ox 98 02/11/25 10:11 BMI result Body Mass Index 32.1 Comfortable Neck supple no JVD. Lungs entry equal no rales. Heart S1-S2 heard no gallop or rub. Abdomen soft nontender. Neuro alert awake oriented. No asterixis. Extremities no edema. Results Reviewed Nephrology Results: Hgb 14.4 g/dl (12.0-16.0) 02/10/25 WBC 9.4 X10*3/uL (4.8-10.8) 02/10/25 Plt Count 308 X10*3/uL (160-400) 02/10/25 Sodium 140 mmol/L (135-145) 02/10/25 Potassium 4.6 mmol/L (3.3-5.1) 02/10/25 Chloride 112 mmol/L (96-108) H 02/10/25 Carbon Dioxide 20 mmol/L (22-29) L 02/10/25 BUN 36 mg/dL (9-16) H 02/10/25 Creatinine 3.04 mg/dL (0.5-1.4) H 02/10/25 Calcium 10.8 mg/dL (8.4-10.2) H 02/10/25 PTH Intact 733.6 pg/mL (8.7-77.1) H 02/10/25 Assessment & Plan Assessment & Plan (1) Chronic kidney disease, stage 4 (severe): Code(s): N18.4 - Chronic kidney disease, stage 4 (severe) Category: Medical (2) Hyperparathyroidism: Code(s): E21.3 - Hyperparathyroidism, unspecified Category: Surgical (3) Essential hypertension: Code(s): I10 - Essential (primary) hypertension Category: Medical (4) Diabetic nephropathy associated with type 2 diabetes mellitus: Code(s): E11.21 - Type 2 diabetes mellitus with diabetic nephropathy Category: Medical (5) Hypercalcemia: Code(s): E83.52 - Hypercalcemia Category: Surgical Plan Jaclyn has stage IV CKD due to underlying diabetic nephropathy. Renal function is at baseline/stable. Goal is to slow the progression of renal disease. Continue to avoid nephrotoxic agents including NSAIDs. Encouraged her to stay on low-sodium diet. Hemoglobin A1c should be maintained less than 7%. Blood pressure - well-controlled. We discussed importance of weight loss as well. She has no evidence of anemia. Hemoglobin was 15.7 in April. Recurrent hypercalcemia, most recent 10.6 in April Intact PTH has been progressively increasing. -has primary hyperparathyroidism. parathyroid scan shows adenoma Referred to surgeon for possible parathyroidectomy- per surgery, given unclear if multiple hyperplasia or parathyroid source of hypercalcemia, she has been referred for formal endocrine evaluation. Await follow up from surgeon preemptive renal transplant evaluation. -not a candidate Pelvic MRI ordered due to pelvic mass Enhancing spiculated mass in the central pelvis measuring 3.2 x 3.0 x 2.6 cm which could represent a metastatic deposit. Correlation with oncologic history is recommended. CT of the chest, abdomen, and pelvis should be considered. s/p [place] oophorectomy She has seen a dialysis nurse educator and leaning toward intermittent HD vs home PD, but will continue to consider. From a renal stand point , No absolute contraindication for parathyroidectomy surgery Orders: Orders Complete Blood Count no Diff 2 Months E83.52 - Hypercalcemia, N18.4 - Chronic kidney disease, stage 4 (severe) Basic Metabolic Panel 2 Months E83.52 - Hypercalcemia, N18.4 - Chronic kidney disease, stage 4 (severe) Parathyroid Hormone Intact 2 Months E83.52 - Hypercalcemia, N18.4 - Chronic kidney disease, stage 4 (severe) Coding Level of Care Code Est Pt Level 4 (23093) Diagnoses Chronic kidney disease, stage 4 (severe) N18.4 Hyperparathyroidism E21.3 Essential hypertension I10 Diabetic nephropathy associated with type 2 diabetes mellitus E11.21 Hypercalcemia E83.52
--- OUTSIDE RECORDS SUMMARY | 2025-02-11 11:18 | XMS_ITS | Clinical Summary ---
Author Organization [employer] Address [address] [facility] [address] [place] [address] Care Team Providers Care Senior Director Of Strategy Name Role Phone Unavailable Primary Care Provider Unavailabl e Allergies Active Allergy Reactions Criticality Noted Date Comments Orphenzohra Hagan 02/19/2024 Medications aspirin 81 MG EC [...] Most Recently Relevant to Health Maintenance Insurance PENDING SALE TO [facility] STAND ADULT
--- OUTSIDE RECORDS SUMMARY | 2025-02-11 11:18 | XMS_ITS | Clinical Summary ---
Author Organization [facility] Address [address] [place] [address] Care Team Providers Care Sole Layer Hand Name Role Phone Unavailable Primary Care Provider [...] of right foot- Followed [facility] Essential hypertension 03/08/2016 Diabetes mellitus [...] Plan of Treatment Not on file Insurance [place]
--- OUTSIDE RECORDS SUMMARY | 2025-02-11 11:18 | XMS_ITS | Clinical Summary ---
Author Organization [facility] Address [address] [place] [address] Phone Care Team Providers Care Er Physician Name Role Phone Alfredo Sanders MD Primary Care Provider [phone] Allergies Active Allergy Reactions Criticality Noted Date [...] 2025 07/18/2011, 07/22/2010, 08/26/2008 Insurance Care Teams Er Physician Relationship Specialty Start Date End Date Alfredo Sanders MD [facility] [address] [place], [place] PCP - General 10/19/20
--- OUTSIDE RECORDS SUMMARY | 2025-02-11 11:18 | XMS_ITS | Clinical Summary ---
Author Organization [address] [facility] Address [address] [place] [address] Phone Care Team Providers Care Supervisor Composing Room Name Role Phone Alfredo Sanders MD Primary Care Provider [phone] Allergies Active Allergy Reactions Criticality Noted [...] 25 Active blood-glucose,re ceiver,cont (FreeStyle Patrick 3 [place]) miscIndications: Type II or unspecified type diabetes mellitus with ophthalmic manifestations, uncontrolled(250 .52) ([facility] V24, [facility] V28) Use to monitor blood sugars. 1 each 01/23/20 25 Active blood-glucose sensor (FreeStyle Patrick 3 Plus Sensor) deviceIndication s:Type II or unspecified type diabetes mellitus with ophthalmic manifestations, uncontrolled(250 .52) ([facility] V24, [facility] V28) Change sensor every 15 days. 6 [...] Problems Problem Noted Date Diagnosed Date Hyperparathyroidism ([facility] V24) 01/22/2025 Primary hypertension 01/22/2025 Stage 4 chronic kidney disease (CMS/HCC V24, CMS /HCC V28) 01/22/2025 PAD (peripheral artery disease) ([facility] V24) Chronic venous insufficiency 06/08/2018 Nuclear sclerosis 09/02/2014 Overview (09/02/2024): Dr Barnes note 11-29-11 Microalbuminuria 09/02/2014 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, not stated as uncontrolled(250.41) ([facility] V24, CMS/[facility] V28) 09/02/2014 Secondary diabetes mellitus with neurological manifestations, 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) ([facility] V24, [facility] V28) 09/02/2014 Diabetic neuropathy ([facility] V24, [facility] V28) 0 03/25/2011 Hyperlipidemia 07/21/2010 Carpal tunnel syndrome 11/24/2008 Overview (09/02/2024): Bilateral; L>R Uterine fibroid 08/26/2008 Stroke ([facility] V24, [facility] V28) 08/13/2008 Overview (09/02/2024): Left Cerebellar; 07/16; LV thrombus Myocardial infarct ([facility] V24, [facility] V28) Overview (09/02/2024): Inferior; Left Ventricular Thrombus;07/16; [place] Type II or unspecified type diabetes mellitus with ophthalmic manifestations, 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) ([facility] V24, [facility] V28) 06/23/2007 Iron deficiency anemia 12/26/2005 Encounters Date Type Department Care Team Description 01/22/2025 8:40 AM EDT Consult Endocrinology - [address] [phone] Maria E Ferrer PA Type II or unspecified type diabetes mellitus with ophthalmic manifestations, 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) ([facility] V24, [facility] V28) (Primary Dx); Primary hypertension; Stage 4 chronic kidney disease ([facility] V24, [facility] V28); Hyperparathyroidism ([facility] V24); Hyperlipidemia, unspecified hyperlipidemia type 11/29/2024 Telephone Endocrinology - [address] [phone] Dariela Childs PA Referral from Last 3 [...] 07/29/2008 DX :Non-compliance with treatment Myocardial infarct ([facility] V24, [facility] V28) 08/13/2008 DX:Myocardial infarct ([facility]); COMMENT: Inferior; 07/16; [place] Stroke ([facility] V24, [facility] V28) 08/13/2008 DX:Stroke ([facility]); COMMENT: Left Cerebellar Tumors of body of [...] 07/21/2010 DX:Other and unspecified hyperlipidemia Diabetic neuropathy ([facility] V24, [facility] V28) 03/25/2011 DX:Diabetic neuropathy ([facility]) Family History Medical History Relation Name Comments [...] type diabetes mellitus with ophthalmic manifestations, 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) ([facility] V24, [facility] V28) URINE ALBUMIN CREATININE RATIO Routine 03/25/2011 ANNUAL BMP BLOOD TEST Routine 03/25/2011 LIPID PANEL Routine 03/25/2011 HEPATITIS C SCREENING Routine 01/13/2010 HIV SCREENING Routine 01/13/2010 PAP SMEAR Routine 01/13/2010 from Last 3 Months or Most Recently Relevant to Health Maintenance Results * (ABNORMAL) Hemoglobin A1c (01/22/2025 9:42 AM EDT) Hemoglobin A1C 8.8(H) <6.5 % LAB CHEMISTRY METHOD 01/22/2025 2:08 PM EDT [facility] Mean Bld Glu Estim. 206 mg/dL LAB CHEMISTRY METHOD 01/22/2025 2:08 PM EDT [facility] Blood Venous blood specimen / Unknown Venipuncture / Unknown 01/22/2025 9:42 AM EDT 01/22/2025 9:[address] [facility] Maria E BARRON LAB BLOOD ORDERABLES Final Resul t [facility] [address] [place] [address], [place] [phone] * Urine Albumin Creatinine Ratio (03/25/2011) [facility] Urine Albumin Creatinine Ratio Abstracted Result [facility] Provider HEALTH MAINTENANCE Final Result * Annual BMP Blood Test (03/25/2011) [facility] Annual BMP Blood Test Abstracted Result [facility] Provider HEALTH MAINTENANCE Final Result * (ABNORMAL) Lipid panel (03/25/2011) [facility] LDL/HDL Ratio 6(A) 0 - 4 Triglycerides 162(A) 0 - 150 mg/dL Cholesterol 254(A) 0 - 200 mg/dL HDL 45 >=40 mg/dL LDL Cholesterol 177(A) 0 - 100 mg/dL Blood Venous blood specimen / Unknown Result [facility] Provider LAB BLOOD ORDERABLES Cassie l Result * HIV Screening (01/13/2010) [facility] HIV Screening Abstracted Result [facility] Provider HEALTH MAINTENANCE Final Result * Hepatitis C Screening (01/13/2010) [facility] Hepatitis C Screening Abstracted [facility] Provider HEALTH MAINTENANCE Final Result * Pap Smear (01/13/2010) Pap smear Abstracted ,Negative us Historical Provider HEALTH MAINTENANCE Final Result from Last 3 Months or Most Recently Relevant to Health Maintenance Insurance [facility] [employer] Care Teams Supervisor Composing Room Relationship Specialty Start Date End Date Alfredo Sanders MD [address] [place] [address] [address] [facility] [place] [address] PCP - General Internal Medicine 04/01/19
== END 2025-02-11 10:36 | disposition home or self-care (01) ==
LOC: HO.HKA 09:58
PROVIDERS: PCP Internal Medicine; Visit Provider Internal Medicine Hypertension Specialist
DX: I12.9 Hypertensive chronic kidney disease with stage 1 through stage 4 chronic kidney disease, or unspecified chronic kidney disease (principal); E11.22 Type 2 diabetes mellitus with diabetic chronic kidney disease; N18.4 Chronic kidney disease, stage 4 (severe); E21.3 Hyperparathyroidism, unspecified; E83.52 Hypercalcemia
CPT/HCPCS: 99214

== ENCOUNTER → 2025-02-11 09:57 | Outpatient (BNVA) | payer OTHER, SELFPAY | PROVIDERS: PCP Internal Medicine; Visit Provider Internal Medicine Hypertension Specialist | DX: E11.22 Type 2 diabetes mellitus with diabetic chronic kidney disease (principal); I12.9 Hypertensive chronic kidney disease with stage 1 through stage 4 chronic kidney disease, or unspecified chronic kidney disease; N18.4 Chronic kidney disease, stage 4 (severe); E11.21 Type 2 diabetes mellitus with diabetic nephropathy; E83.52 Hypercalcemia; E21.3 Hyperparathyroidism, unspecified | CPT/HCPCS: 99212 ==

== ENCOUNTER 2025-03-21 12:45 | Outpatient (AMB) | payer OTHER, SELFPAY ==
--- NOTE | 2025-03-21 13:00 | MHC.PC.OV ---
Vital Signs 03/21/25 13:01 Height 5 ft 6 in Weight 200 lb 8 oz BMI 32.4 BP 120/66 Blood Pressure Location Lt brachial Position Sitting Pulse 69 Pulse Source Pulse Oximeter Temp 97.1 F Temp Source Temporal Artery Scan Pulse Oximetry (%) 98 Oxygen Delivery Method Room Air Intake Visit Reasons: DM Intake Note: Patient is here to follow up on DM. Ore Puncher Required: No Table Lever Operator: Not Required per policy Accompanied by: Self / Same As Patient Allergies cephalexin [From KEFLEX] Allergy (Intermediate, Verified 03/21/25 13:01) HIVES Tobacco use date assessed: 03/21/25 Dental Screening Dental Screen Date: 12/12/24 HPI DM HPI Details DM , very labile - seeing ENDO and adjusting insulin PFSH Medical History (Updated 03/21/25 @ 13:48 by Alfredo Sanders MD) Colon cancer screening Coronary artery dissection Type 2 diabetes mellitus with hyperglycemia Skin tag Atherosclerotic cardiovascular disease [place] tendinitis of right shoulder Adhesive capsulitis of right shoulder Back pain Upper respiratory infection Arm pain Dizziness Type 2 diabetes mellitus with unspecified complications Dyspnea on exertion SOB (shortness of breath) Gastroparesis Headache On anticoagulant therapy Hidradenitis suppurativa Pulmonary embolism Type 2 diabetes mellitus with chronic kidney disease Precordial chest pain Vitamin D deficiency HTN (hypertension) On beta jacqueline at home Axillary hidradenitis suppurativa Proliferative diabetic retinopathy associated with type 2 diabetes mellitus Diabetic polyneuropathy associated with type 2 diabetes mellitus Diabetic nephropathy associated with type 2 diabetes mellitus residential (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 pylori infection Anxiety and depression Acute angle-closure glaucoma CVA (cerebral vascular accident) GERD (gastroesophageal reflux disease) Hypertension Coronary artery disease Hypercholesterolemia Obesity (BMI 30-39.9) Surgical History S/P removal of left ovary (~01/2025) Status post hysterectomy with oophorectomy History of hysterectomy History of surgery (03/21/23) Hx of excision of mass History of axillary surgery History of axillary surgery (08/21/20) History of esophagogastroduodenoscopy (EGD) History of angioplasty History of cardiac catheterization (~03/30/16) History of endometrial ablation Amputation of right index finger History of tubal ligation Family History Mother Type 2 diabetes mellitus Hypertension Maternal Grandmother Myocardial infarction Paternal Grandmother History of breast cancer Social History Household Members: None Housing: Apartment Are you a primary career coach to a significant other at home: No Do you presently have visiting nurse or other home services: No Alcohol intake: never Comment: medicated, see MAR Patient Tobacco Use Status: Former Tobacco user Tobacco use type: Cigarette e-Cigarette/Vaping Use: Never Used Second Hand Smoke Exposure: Yes Substance Use Type: Marijuana service: No Current occupational status: unemployed Cognitive needs: No Hearing needs: Yes (partially deaf ) Vision needs: Yes Questionnaire PHQ-9 Over the last 2 weeks, how often have you been bothered by any of the following problems? 1. Little interest or pleasure in doing things: not at all 2. Feeling down, depressed, or hopeless: not at all 3. Trouble falling or staying asleep, or sleeping too much: more than half the days 4. Feeling tired or having little energy: not at all 5. Poor appetite or overeating: not at all 6. Feeling bad about yourself - or that you are a failure or have let yourself or your family down: not at all 7. Trouble concentrating on things, such as reading the newspaper or watching television: not at all 8. Moving or speaking so slowly that other people could have noticed. Or the opposite - being so fidgety or restless that you have been moving around a lot more than usual: not at all 9. Thoughts that you would be better off or of hurting yourself in some way: not at all Total score: 2 Depression Screening Interpretation: Positive Depression Screening Done: Yes Source: Developed by Drs. Tushar Villar, Dinoarh Ariza, Kobi Carver and colleagues, with an educational neto from [employer]. Thrive Questionnaire Date Thrive assessed: 03/19/25 I am a: Patient What is your living situation today?: I have a steady place to live Within the past 12 months, did the food you bought not last and you didn't have the money to get more?: Sometimes True Within the past 12 months, did you worry whether your food would run out before you got money to buy more?: Sometimes True Do you have trouble paying for medicines?: No Do you have trouble getting transportation to medical appointments?: No Do you have trouble paying your heating and electricity bill?: Yes Do you have trouble taking care of your child, family member or friend?: No Do you have trouble with day-to-day activities such as bathing, preparing meals, shopping, managing finances, etc.?: No Are you currently unemployed and looking for a job?: Yes Are you interested in more education?: No Please select the resources that you would like help with: Utilities Currently or been in a relationship where the following occur: No concerns reported THRIVE Score: 3 AUDIT C Alcohol Use Questionnaire (AUDIT-C) 1. How often do you have a drink containing alcohol?: Monthly or less Total Score: 1 BRAXTON-7 AMB Questionnaire BRAXTON-7 Date BRAXTON - 7 assessed: 03/21/25 Feeling nervous, anxious, or on edge: 1 = Several days Not being able to stop or control worryin = More than half the days Worrying too much about different things: 2 = More than half the days Trouble relaxin = Not at all Being so restless that it is hard to sit still: 0 = Not at all Becoming easily annoyed or irritable: 1 = Several days Feeling afraid as if something awful might happen: 2 = More than half the days Total BRAXTON-7 score (0-4 normal; 5-9 mild; 10-14 moderate; 15-21 severe): 8 Source: Developed by Drs. Tushar Villar, Dinorah Ariza, Kobi Carver and colleagues, with an educational neto from [employer]. Physical exam (Primary Care) Vital Signs: Last Vital Signs Temp 97.1 F 03/21/25 13:01 Pulse 69 03/21/25 13:01 BP 120/66 03/21/25 13:01 Pulse Ox 98 03/21/25 13:01 Oxygen Delivery Method Room Air 03/21/25 13:01 BMI result Body Mass Index 32.4 Tobacco/Smoking Status: Tobacco use Status Tobacco use date assessed 03/21/25 03/21/25 13:09 Patient Tobacco Use Status Former Tobacco user 03/21/25 13:09 Tobacco use type Cigarette 03/21/25 13:09 e-Cigarette/Vaping Use Never Used 03/21/25 13:09 PHQ-9: PHQ-9 Score PHQ-9: Total score 2 03/21/25 13:27 Depression Screening Interpretation: Positive Thrive Assessment: Date of Thrive Assessment Date Thrive assessed 03/19/25 03/21/25 13:09 Currently or been in a relationship where the following occur: No concerns reported Const General: alert; No acute distress Eyes Conjunctivae: conjunctivae normal Resp Auscultation: clear to auscultation bilaterally Cardio Rate: regular rate Rhythm: regular rhythm GI Inspection: Yes normal to inspection Extrem General: Yes normal to inspection and No edema Results AMB Hemoglobin A1c AMB Hemoglobin A1c 9.0 % Last Edit by MIKEL Mcmullen on 03/21/25 13:14 Results Reviewed Results Reviewed: Laboratory Last Values Hgb A1c (Clinic) 9.0 % (4.0-6.0) H 03/21/25 13:00 Coding Level of Care Code Est Pt Level 4 (88867) Complex EM visit Add On G2211 Diagnoses Ovarian mass, right N83.8 Parathyroid adenoma D35.1 Type 2 diabetes mellitus with hyperglycemia, with long-term current use of insulin E11.65; Z79.4 Diabetes mellitus [facility] use: with [facility] use Chronic kidney disease, stage 4 (severe) N18.4 Pulmonary embolism I26.99 Essential hypertension I10 Moderate mixed hyperlipidemia not requiring statin therapy E78.2 Hyperlipidemia type: moderate mixed hyperlipidemia not requiring statin therapy Coronary artery disease involving coquille coronary artery of coquille heart without angina pectoris I25.10 Associated angina: without angina Coronary Disease-Associated Artery/Lesion type: coquille artery [place] vs. transplanted heart: coquille heart Obesity (BMI 30-39.9) E66.9 Gastroesophageal reflux disease without esophagitis K21.9 Esophagitis presence: without esophagitis Left shoulder pain M25.512 Lateral epicondylitis of left elbow M77.12 Bilateral knee pain M25.561; M25.562 Assessment & Plan Assessment & Plan (1) Ovarian mass, right: Comment: CT scan [facility] July 08 mass lesion adjacent to the right common iliac bifurcation 2.9 cm x 2.4 cm previously 2.7 x 2 cm. Ill-defined soft tissue mass is now seen within the presacral region measuring 3.2 cm x 2.6 cm Code(s): N83.8 - Other noninflammatory disorders of ovary, fallopian tube and broad ligament Category: Medical Plan: Review of the notes patient had the procedure done revealing negative results (2) Parathyroid adenoma: Code(s): D35.1 - Benign neoplasm of parathyroid gland Category: Medical Plan: Patient has met with the surgeon and presently considering monitoring for the moment. (3) Type 2 diabetes mellitus with hyperglycemia: Comment: IDDM, Dr. Nguyen and Calista Code(s): E11.65 - Type 2 diabetes mellitus with hyperglycemia Category: Medical Qualifiers: Diabetes mellitus [facility] insulin use: with [facility] use Qualified Code(s): E11.65 - Type 2 diabetes mellitus with hyperglycemia; Z79.4 - terminal make up operator (current) use of insulin Plan: Decrease the amount of carbohydrate intake, pasta, bread, rice and potatoes are all sugar and that is aside from all the sweet stuff, remember that fruits are good but they are Sweet also. Patient follows up with endocrinology on Farxiga Lantus at or Touo at 64 units once a day insulin lispro is sliding scale (4) Chronic kidney disease, stage 4 (severe): Code(s): N18.4 - Chronic kidney disease, stage 4 (severe) Category: Medical Plan: Continue to monitor. Renal transplant not a candidate. Avoid NSAIDs keep well hydrated (5) Pulmonary embolism: Code(s): I26.99 - Other pulmonary embolism without acute cor pulmonale Category: Medical Plan: PAtient stopped anticoahulation by herself (6) Essential hypertension: Code(s): I10 - Essential (primary) hypertension Category: Medical Plan: Continue with blood pressure medication. Decrease salt intake and exercise on metoprolol 200 mg once a day losartan 50 mg once a day amlodipine 10 mg once a day (7) Hyperlipidemia, unspecified: Code(s): E78.5 - Hyperlipidemia, unspecified Category: Medical Qualifiers: Hyperlipidemia type: moderate mixed hyperlipidemia not requiring statin therapy Qualified Code(s): E78.2 - Mixed hyperlipidemia Plan: Avoid fried foods, chicken skin, eggs, butter margarine, pastries and meat. Be it pork or beef they have a lot of cholesterol LDL goal of less than 70 and triglyceride of less than 150 patient is on Zetia and rosuvastatin (8) Coronary artery disease: Comment: stent placement March 2016, echo March 2019 normal LV function, impaired relaxation Chest pains on and off-not like when she had the [place]. Sees Dr May. Intermediate risk for surgery. Code(s): I25.10 - Atherosclerotic heart disease of coquille coronary artery without angina pectoris Category: Medical Qualifiers: Associated angina: without angina Coronary Disease-Associated Artery/Lesion type: [place] artery [place] vs. transplanted heart: [place] heart Qualified Code(s): I25.10 - Atherosclerotic heart disease of coquille coronary artery without angina pectoris Plan: Control the cholesterol, weight, blood pressure, diabetes (9) Obesity (BMI 30-39.9): Code(s): E66.9 - Obesity, unspecified Category: Medical Plan: Diet and exercise (10) GERD (gastroesophageal reflux disease): Code(s): K21.9 - Gastro-esophageal reflux disease without esophagitis Category: Medical Qualifiers: Esophagitis presence: without esophagitis Qualified Code(s): K21.9 - Gastro-esophageal reflux disease without esophagitis Plan: Avoid the foods that causes that usually spicy foods, tomato products, juices, coffee, soda and foods that your sensitive to. After eating do not lie down, allow 3-4 hours before in lie down. And keep the head of bed above 30 degrees to avoid the acid from going up. (11) Left shoulder pain: Code(s): M25.512 - Pain in left shoulder Category: Medical (12) Lateral epicondylitis of left elbow: Code(s): M77.12 - Lateral epicondylitis, left elbow Category: Medical (13) Bilateral knee pain: Code(s): M25.561 - Pain in right knee; M25.562 - Pain in left knee Category: Medical Plan History of Present Illness The patient is a 54-year-old female presenting for a follow-up visit. The patient has a history of coronary artery disease and was last seen by cardiology on December 23, 2024, with an echocardiogram showing an ejection fraction of 35-40%, indicating ischemic heart disease. She has hypertension managed with metoprolol, losartan, and amlodipine. The patient has chronic kidney disease stage 4 due to diabetic nephropathy, diagnosed by nephrology on February 11, 2025. She is not a candidate for preemptive renal transplant evaluation and is advised to avoid NSAIDs and maintain hydration. The patient has a history of primary hyperparathyroidism with recurrent hypercalcemia and has been referred to a surgeon for potential parathyroidectomy. She is also under endocrinology care for diabetes management, currently on Farxiga, Lantus, and insulin lispro. The patient has an ovarian mass being monitored by gynecology, with a right salpingo-oophorectomy performed in January 2025, revealing a follicular cyst and hyalurohemangioma. She is scheduled for a colon cancer screening on April 01, 2025. The patient reports shoulder pain diagnosed as tendinitis, with no history of trauma, and knee pain attributed to arthritis, for which x-rays have been requested. Health Maintenance - Colon cancer screening scheduled for April 01, 2025 - Advised to avoid NSAIDs and maintain hydration due to chronic kidney disease Social History Review of Systems - Musculoskeletal: Reports shoulder pain, knee pain Physical Exam - Musculoskeletal: Painful shoulder movement, tenderness noted on specific maneuvers Results - Echocardiogram: Ejection fraction of 35-40%, indicating ischemic heart disease - Right salpingo-oophorectomy: Revealed follicular cyst and hyalurohemangioma Plan The patient will continue management for coronary artery disease with regular follow-ups with cardiology, and her hypertension will be managed with metoprolol, losartan, and amlodipine. She will maintain her current diabetes management regimen under endocrinology supervision, including Farxiga, Lantus, and insulin lispro. For chronic kidney disease, the patient is advised to avoid NSAIDs and maintain hydration, with regular nephrology follow-ups. The patient is not a candidate for preemptive renal transplant evaluation at this time. The ovarian mass will continue to be monitored by gynecology, and the patient is scheduled for a colon cancer screening on April 01, 2025. The patient has been referred to a surgeon for potential parathyroidectomy due to primary hyperparathyroidism. For musculoskeletal complaints, x-rays have been requested for the knees, and physical therapy is recommended for shoulder tendinitis. Patient was informed and verbally consented to the use of an ambient scribe for clinic note documentation during this visit. Discussion Notes During the visit, I discussed with the patient the management of her coronary artery disease and hypertension, emphasizing the importance of medication adherence and regular follow-ups with cardiology. We reviewed her diabetes management plan, including the use of Farxiga, Lantus, and insulin lispro, and the need for endocrinology follow-up. I advised the patient to avoid NSAIDs and maintain hydration due to her chronic kidney disease and discussed the current status of her renal function with nephrology follow-up. We also discussed the monitoring of her ovarian mass by gynecology and the upcoming colon cancer screening. The patient was informed about the referral to a surgeon for potential parathyroidectomy due to primary hyperparathyroidism. For her musculoskeletal issues, we discussed the plan for x-rays and physical therapy. Patient Instructions - Continue taking prescribed medications for coronary artery disease, hypertension, and diabetes as directed. - Avoid NSAIDs and stay well-hydrated to support kidney health. - Attend scheduled follow-up appointments with cardiology, nephrology, endocrinology, and gynecology. - Follow up with the surgeon for potential parathyroidectomy. - Undergo x-rays for knee pain and start physical therapy for shoulder tendinitis. Orders: Orders AMB Hemoglobin A1c Today E11.65 - Type 2 diabetes mellitus with hyperglycemia, Z79.4 - terminal make up operator (current) use of insulin XR shoulder LT min 2V Today M77.12 - Lateral epicondylitis, left elbow PT Evaluation and Treatment Today M25.512 - Pain in left shoulder, M77.12 - Lateral epicondylitis, left elbow XR Knee [place] 1or 2V Today M25.561 - Pain in right knee, M25.562 - Pain in left knee Medications: New apixaban (Eliquis) 5 mg PO BID 60 tabs 4RF I26.99 - Other pulmonary embolism without acute cor pulmonale
[2025-03-21 13:01] VITALS: BP 120/66; PULSE 69; TEMP 36.2; O2SAT 98; BMI 32.4
--- OUTSIDE RECORDS SUMMARY | 2025-03-21 13:13 | XMS_ITS | Clinical Summary ---
Author Organization [facility] Address [address] [place] [address] Care Team Providers Care Customer Servicer Name Role Phone Unavailable Primary Care Provider [...] of right foot- Followed [facility] - [facility] Essential hypertension 03/08/2016 Diabetes mellitus [...] Plan of Treatment Not on file Insurance [place] MEDICAID
== END 2025-03-21 14:44 | disposition home or self-care (01) ==
LOC: HO.HMCH 12:46
PROVIDERS: PCP Internal Medicine; Visit Provider Internal Medicine
DX: E11.65 Type 2 diabetes mellitus with hyperglycemia (principal); Z79.4 Long term (current) use of insulin; N18.4 Chronic kidney disease, stage 4 (severe); I26.99 Other pulmonary embolism without acute cor pulmonale; N83.8 Other noninflammatory disorders of ovary, fallopian tube and broad ligament; D35.1 Benign neoplasm of parathyroid gland; I12.9 Hypertensive chronic kidney disease with stage 1 through stage 4 chronic kidney disease, or unspecified chronic kidney disease; E78.2 Mixed hyperlipidemia; I25.10 Atherosclerotic heart disease of native coronary artery without angina pectoris; E66.9 Obesity, unspecified; K21.9 Gastro-esophageal reflux disease without esophagitis; M25.512 Pain in left shoulder

== ENCOUNTER → 2025-03-21 12:45 | Outpatient (BNVA) | payer OTHER, SELFPAY | PROVIDERS: PCP Internal Medicine; Visit Provider Internal Medicine | DX: D35.1 Benign neoplasm of parathyroid gland (principal); N83.8 Other noninflammatory disorders of ovary, fallopian tube and broad ligament; E11.65 Type 2 diabetes mellitus with hyperglycemia; E11.22 Type 2 diabetes mellitus with diabetic chronic kidney disease; E11.21 Type 2 diabetes mellitus with diabetic nephropathy; I12.9 Hypertensive chronic kidney disease with stage 1 through stage 4 chronic kidney disease, or unspecified chronic kidney disease; N18.4 Chronic kidney disease, stage 4 (severe); I26.99 Other pulmonary embolism without acute cor pulmonale; E78.2 Mixed hyperlipidemia; I25.10 Atherosclerotic heart disease of native coronary artery without angina pectoris; E66.9 Obesity, unspecified; K21.9 Gastro-esophageal reflux disease without esophagitis; M25.512 Pain in left shoulder; M77.12 Lateral epicondylitis, left elbow; M25.561 Pain in right knee; M25.562 Pain in left knee; E83.52 Hypercalcemia; M77.8 Other enthesopathies, not elsewhere classified; Z79.4 Long term (current) use of insulin; Z68.32 Body mass index [BMI] 32.0-32.9, adult | CPT/HCPCS: 83036; 99212 ==

== ENCOUNTER 2025-03-31 12:43 | Outpatient (REF) | payer OTHER, SELFPAY ==
[2025-03-31 13:20] LABS: Hematocrit 43.7 % (37.0-47.0); Hemoglobin 13.8 g/dl (12.0-16.0); Mean Corpuscular HGB Conc 31.6 g/dl (31.0-35.0); Mean Corpuscular Hemoglobin 25.6 pg (27.0-33.0); Mean Corpuscular Volume 81.1 fL (80.0-98.0); Mean Platelet Volume 11.4 fL (9.4-12.3); Platelet Count 280 X10*3/uL (160-400); Red Blood Count 5.39 X10*6/uL (4.20-5.50); Red Cell Distribution Width 14.7 % (11.0-16.0); White Blood Count 8.2 X10*3/uL (4.8-10.8)
[2025-03-31 13:30] LABS: Anion Gap 12 (12-20); Blood Urea Nitrogen 48 mg/dL (9-16); Calcium 10.9 mg/dL (8.4-10.2); Carbon Dioxide 19 mmol/L (22-29); Chloride 112 mmol/L (96-108); Estimated Glomerular Filt Rate 14; Glucose Random 132 mg/dL (60-115); Sodium 139 mmol/L (135-145)
[2025-03-31 13:35] LABS: Parathyroid Hormone Intact 829.7 pg/mL (8.7-77.1)
--- OUTSIDE RECORDS SUMMARY | 2025-03-31 14:03 | XMS_ITS | Clinical Summary ---
Author Organization [facility] Address [address] [place] [address] Care Team Providers Care Motorcycle Service Technician Name Role Phone Unavailable Primary Care Provider [...] of right foot- Followed [facility] Essential hypertension 03/08/2016 Diabetes mellitus [...] 80 03/08/2016 3:05 PM EDT Temperature 37.1 C (98.8 F) 03/08/2016 3:05 PM EDT Respiratory Rate 16 03/08/2016 3:05 PM EDT Oxygen Saturation - - Inhaled Oxygen Concentration - - Weight 77.1 kg (170 lb) 03/08/2016 3:05 PM EDT Height 165.1 cm (5' 5 ) 03/08/2016 3:05 PM EDT Body Mass Index 28.29 03/08/2016 3:05 PM EDT Plan of Treatment Not on file Insurance [place] MEDICAID
== END 2025-03-31 12:44 | disposition home or self-care (01) ==
LOC: HO.LAB 12:43
PROVIDERS: PCP Internal Medicine; Visit Provider Internal Medicine Hypertension Specialist
DX: E83.52 Hypercalcemia (principal); N18.4 Chronic kidney disease, stage 4 (severe)
CPT/HCPCS: 36415; 80048; 83970; 85027

== ENCOUNTER 2025-04-01 10:53 | Outpatient (AMB) | payer OTHER, SELFPAY ==
--- NOTE | 2025-04-01 11:01 | MHC.OFFVIS ---
Vital Signs 04/01/25 11:13 Height 5 ft 6 in Weight 200 lb BMI 32.3 BP 154/84 H Blood Pressure Location Rt brachial Position Sitting Pulse 66 Pulse Source Pulse Oximeter Pulse Oximetry (%) 98 Oxygen Delivery Method Room Air Intake Visit Reasons: Follow up [facility]IC pt R/S last 3 visits Intake Note: Est pt for mgmt of [facility]IC + GERD. 1 YR FUV. CC; C.O. bloating and distention, worse since having ovarian surgery in January 2025. Pt denies any additional sx. Confirms that their Rx are working well overall. Pt does need refills of all her GI Rx. Window Decorator Required: No Accompanied by: Self / Same As Patient Allergies cephalexin (From KEFLEX) Allergy (Intermediate, Verified 04/01/25 11:12) HIVES HPI HPI Follow up [facility] pt R/S last 3 visits: Details: Assessment & Plan (1) Chronic idiopathic constipation: Code(s): K59.04 - Chronic idiopathic constipation Category: Medical (2) Right lower quadrant abdominal pain: Code(s): R10.31 - Right lower quadrant pain Category: Medical (3) GERD (gastroesophageal reflux disease): Code(s): K21.9 - Gastro-esophageal reflux disease without esophagitis Category: Medical Qualifiers: Esophagitis presence: without esophagitis Qualified Code(s): K21.9 - Gastro-esophageal reflux disease without esophagitis Plan bentyl more CIC, reglan drowsiness with other meds, senna ok prn. She is having a lot of pain in the LUQ and she is only passing small stools varying from hard to soft; even when soft she is only passing a small amt and usually only once a day. The pain will subside if she can move her bowels better. She is taking 2 senna every night but still will not move her bowels. We will progress to dulcolax. The o2o is controlling her GERD well. rov 2 weeks. COLONOSCOPY Scheduled for 07/03/2024 - but was postponed r/t uncontrolled blood sugar A1C 9-10% BIOPSY TODAY'S VISIT She was doing well with the bisacodyl. However she has had a big change in that they found what they thought was a mass on her right ovary and she was sent to [facility] to have a salpingo-oophorectomy. After this her upper abdominal bloating severely worsened. In the past she has known gastroparesis from her 2020 gastric emptying study. That showed a mild delay at that time, however her sugars have been fairly uncontrolled at least over the past year with her A1cs averaging between 9 and 10%. It is extremely likely that the gastroparesis has worsened. Overall, she has an extremely complex patient having a history of aortic dissection with a thrombus, followed by an MS and pulmonary emboli, she has stage 4 kidney disease and not a good candidate for transplant based on her cardiac status, and she has hyperparathyroidism. Fortunately, the biopsy of the mass in her ovary was not malignant. Next once also for She became sleepy on the metoclopramide in the past. I am going to restart her on the 5 mg which she is agreeable to and she will start by trying to do half a pill 4 times a day and see how this affects the upper abdominal bloating. This may also make her constipation control easier since in general she is managing well but she still has better and worse days in terms of moving her bowels. Her omeprazole controls her GERD. Return office visit in 6 weeks [facility] Medical History (Updated 04/01/25 @ 11:44 by ANNIKA Rose) Gastroparesis Colon cancer screening Coronary artery dissection Type 2 diabetes mellitus with hyperglycemia Skin tag Atherosclerotic cardiovascular disease Calcific tendinitis of right shoulder Adhesive capsulitis of right shoulder Back pain Upper respiratory infection Arm pain Dizziness Type 2 diabetes mellitus with unspecified complications Dyspnea on exertion SOB (shortness of breath) Headache On anticoagulant therapy Hidradenitis suppurativa Pulmonary embolism Type 2 diabetes mellitus with chronic kidney disease Precordial chest pain Vitamin D deficiency HTN (hypertension) On beta jacqueline at home Axillary hidradenitis suppurativa Proliferative diabetic retinopathy associated with type 2 diabetes mellitus Diabetic polyneuropathy associated with type 2 diabetes mellitus Diabetic nephropathy associated with type 2 diabetes mellitus [facility] (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 pylori infection Anxiety and depression Acute angle-closure glaucoma CVA (cerebral vascular accident) GERD (gastroesophageal reflux disease) Hypertension Coronary artery disease Hypercholesterolemia Obesity (BMI 30-39.9) Surgical History S/P removal of left ovary (~01/2025) Status post hysterectomy with oophorectomy History of hysterectomy History of surgery (03/21/23) Hx of excision of mass History of axillary surgery History of axillary surgery (08/21/20) History of esophagogastroduodenoscopy (EGD) History of angioplasty History of cardiac catheterization (~03/30/16) History of endometrial ablation Amputation of right index finger History of tubal ligation Family History Mother Type 2 diabetes mellitus Hypertension Maternal Grandmother Myocardial infarction Paternal Grandmother History of breast cancer Social History Household Members: None Housing: Apartment Are you a primary career coordinator to a significant other at home: No Do you presently have visiting nurse or other home services: No Alcohol intake: never Comment: medicated, see MAR Patient Tobacco Use Status: Former Tobacco user Tobacco use type: Cigarette e-Cigarette/Vaping Use: Never Used Second Hand Smoke Exposure: Yes Substance Use Type: Marijuana service: No Current occupational status: unemployed Cognitive needs: No Hearing needs: Yes (partially deaf ) Vision needs: Yes Review of Systems Const Denies fatigue, Denies fever(s), Denies night sweats, Denies poor appetite and Denies weight loss ENT Reports Normal hearing present, Denies dental pain, Denies dysphagia, Denies hearing loss, Denies mouth pain, Denies odynophagia, Denies throat swelling, Denies tongue swelling and Reports other (Dentition adequate) Card Reports no additional complaints Resp Reports no additional complaints GI Details: Denies abdominal pain, Denies melena, Reports bloating, Denies hematochezia, Reports constipation, Denies GI cramping, Denies dysphagia, Denies excessive flatus, Reports early satiety, Reports heartburn, Denies diarrhea, Reports nausea, Denies odynophagia, Denies vomiting and Denies hematemesis Skin/Breast Denies pruritus, Denies lesions, Denies rash and Denies jaundice Neuro Reports Normal hearing present, Denies Abnormal speech present and Reports paresthesias Endo Denies fatigue Aller/Immun Denies throat swelling and Denies tongue swelling Physical Exam Vital Signs: Last Vital Signs Pulse 66 04/01/25 11:13 BP 154/84 H 04/01/25 11:13 Pulse Ox 98 04/01/25 11:13 Oxygen Delivery Method Room Air 04/01/25 11:13 BMI result Body Mass Index 32.3 Const General: cooperative, no acute distress, well developed and well groomed Nutritional Appearance: well nourished and obese Orientation/consciousness: oriented to person, oriented to place and oriented to time Limitations: No language barrier HEENT Head: Yes normocephalic and Yes atraumatic Eyes General: appearance normal, both eyes and all related structures Pupils: Equal, round and reactive pupils present Neck Neck: Yes normal visual inspection and Yes no lymphadenopathy Thyroid: Thyroid normal Resp Effort & Inspection: normal respiratory effort and able to speak in complete sentences Auscultation: clear to auscultation bilaterally Cardio Rate: regular rate Rhythm: regular rhythm Heart sounds: Normal, physiologic split S2 sound present Peripheral pulses: radial pulses present and posterior tibial pulses present GI Inspection: Yes distended, Yes Abdominal panniculus present and Yes obesity Palpation (GI): Soft to palpation, nontender, no guarding, not rigid and No hepatosplenomegaly present Percussion: Yes normal to percussion Auscultation: normal bowel sounds Rectal Exam - Female: deferred Skin General skin exam: no rashes or lesions noted, turgor normal, skin not dry, no jaundice, No spider nevi and no striae Rashes: no rashes Nails: normal Neuro General: oriented to person, oriented to place and oriented to time Cranial nerves: Yes Equal, round and reactive pupils present and Yes Normal hearing present Speech: No Abnormal speech present Extrem General: Yes normal to inspection, No clubbing, No cyanosis and No edema Psych Appearance: grossly normal and well kempt Mental Status: mental status grossly normal Speech and movement: Normal speech and movement present Affect: normal affect Attitude: cooperative Thought process: Normal thought process present and not confabulating Thought content: Normal thought content present Insight: Fair insight present (Psych) Judgement: Fair judgement present (Psych) Assessment & Plan Assessment & Plan (1) Chronic idiopathic constipation: Code(s): K59.04 - Chronic idiopathic constipation Category: Medical (2) GERD (gastroesophageal reflux disease): Code(s): K21.9 - Gastro-esophageal reflux disease without esophagitis Category: Medical Qualifiers: Esophagitis presence: without esophagitis Qualified Code(s): K21.9 - Gastro-esophageal reflux disease without esophagitis (3) Right lower quadrant abdominal pain: Code(s): R10.31 - Right lower quadrant pain Category: Medical (4) Gastroparesis: Comment: 2020 GES=mild delay Code(s): K31.84 - Gastroparesis Category: Medical Plan She was doing well with the bisacodyl. However she has had a big change in that they found what they thought was a mass on her right ovary and she was sent to [facility] to have a salpingo-oophorectomy. After this her upper abdominal bloating severely worsened. In the past she has known gastroparesis from her 2020 gastric emptying study. That showed a mild delay at that time, however her sugars have been fairly uncontrolled at least over the past year with her A1cs averaging between 9 and 10%. It is extremely likely that the gastroparesis has worsened. Overall, she has an extremely complex patient having a history of aortic dissection with a thrombus, followed by an MS and pulmonary emboli, she has stage 4 kidney disease and not a good candidate for transplant based on her cardiac status, and she has hyperparathyroidism. Fortunately, the biopsy of the mass in her ovary was not malignant. Next once also for She became sleepy on the metoclopramide in the past. I am going to restart her on the 5 mg which she is agreeable to and she will start by trying to do half a pill 4 times a day and see how this affects the upper abdominal bloating. This may also make her constipation control easier since in general she is managing well but she still has better and worse days in terms of moving her bowels. Her omeprazole controls her GERD. Return office visit in 6 weeks Medications: New bisacodyl (Dulcolax (bisacodyl)) 10 mg (2 x 5 mg) PO BEDTIME 180 tabs 1RF 90 days K59.04 - Chronic idiopathic constipation metoclopramide HCl (Reglan) 5 mg PO QIDACHS 120 tabs 6RF K31.84 - Gastroparesis Refilled omeprazole 20 mg PO DAILY 90 caps 1RF E11.22 - Type 2 diabetes mellitus with diabetic chronic kidney disease, N18.30 - Chronic kidney disease, stage 3 unspecified Discontinued sennosides (senna) Discontinued Reason: Doctor's Order 17.2 mg (2 x 8.6 mg) PO BEDTIME 60 tabs 6RF On Hold dicyclomine Hold Comment: no cramping and paresis 20 mg PO QID 120 tabs 1RF Coding Level of Care Code Est Pt Level 4 (33673) Diagnoses Chronic idiopathic constipation K59.04 Gastroesophageal reflux disease without esophagitis K21.9 Esophagitis presence: without esophagitis Right lower quadrant abdominal pain R10.31 Gastroparesis K31.84 Time Spent (min) 34
[2025-04-01 11:13] VITALS: BP 154/84; PULSE 66; O2SAT 98; BMI 32.3
--- OUTSIDE RECORDS SUMMARY | 2025-04-01 12:23 | XMS_ITS | Clinical Summary ---
Author Organization [facility] Address [address] [place] [address] Care Team Providers Care Financial Advocate Name Role Phone Unavailable Primary Care Provider [...] of right foot- Followed [facility] Essential hypertension 03/08/2016 Diabetes mellitus [...] Plan of Treatment Not on file [place]
== END 2025-04-01 11:51 | disposition home or self-care (01) ==
LOC: HO.HGI 10:53
PROVIDERS: PCP Internal Medicine; Visit Provider Nurse Practitioner
DX: K59.04 Chronic idiopathic constipation (principal); K21.9 Gastro-esophageal reflux disease without esophagitis; R10.31 Right lower quadrant pain; K31.84 Gastroparesis
CPT/HCPCS: 99214

== ENCOUNTER → 2025-04-01 10:53 | Outpatient (BNVA) | payer OTHER, SELFPAY | PROVIDERS: PCP Internal Medicine; Visit Provider Nurse Practitioner | DX: K21.9 Gastro-esophageal reflux disease without esophagitis (principal); K59.04 Chronic idiopathic constipation; R10.31 Right lower quadrant pain; K31.84 Gastroparesis | CPT/HCPCS: 99212 ==

== ENCOUNTER 2025-04-08 11:30 | Outpatient (AMB) | payer OTHER, SELFPAY ==
--- NOTE | 2025-04-08 11:29 | HO.NEPHOV ---
Vital Signs 04/08/25 11:30 Height 5 ft 6 in Weight 201 lb BMI 32.4 BP 138/78 Blood Pressure Location Rt brachial Position Sitting Pulse 73 Pulse Source Pulse Oximeter Pulse Oximetry (%) 98 Oxygen Delivery Method Room Air Intake Visit Reasons: 2 MO FU/ Conf Inbound Customer Service Representative Required: No Accompanied by: Self / Same As Patient Allergies cephalexin (From KEFLEX) Allergy (Intermediate, Verified 04/08/25 11:32) HIVES Medication List - Last Reconciled 04/08/25 by Ramin Johnston MD acetic acid 2% 3 drps otic (ear) left TID alcohol swabs 1 pad topical TID 90 days amlodipine 10 mg PO DAILY apixaban (Eliquis) 5 mg PO BID aspirin 81 mg PO DAILY bisacodyl (Dulcolax (bisacodyl)) 10 mg (2 x 5 mg) PO BEDTIME 90 days blood pressure monitor (Blood Pressure Kit) As directed blood sugar diagnostic (FreeStyle Lite Strips) 4 times a day dapagliflozin propanediol (Farxiga) 10 mg PO DAILY dicyclomine 20 mg PO QID Held on 04/01/25. Instructions: no cramping and paresis ezetimibe 10 mg PO DAILY fexofenadine 180 mg PO DAILY flash glucose scanning reader (FreeStyle Patrick 14 Day Smiley) As directed flash glucose sensor (FreeStyle Patrick 14 Day Sensor kit) every 14 days FreeStyle Lite Meter (blood-glucose meter) 4 times a day NS glucose (Dex4 Glucose) 12 grams (3 x 4 gram) PO Q15M PRN hydrocortisone 1% 1 appl TN DAILY PRN insulin glargine U-300 conc (Toujeo Max U-300 SoloStar) 64 units (0.2133 mL) subcut DAILY 30 days insulin lispro 10-24 units20 units before meals (16 units light meals), + 2u for bg over 200, +4 unit bg >250, 10 u with snack. subcutaneously use as directed; 30 days lancets As directed 3x/day latanoprost 0.005% 1 drp ophthalmic (eye) BEDTIME losartan 50 mg PO DAILY metoclopramide HCl (Reglan) 5 mg PO QIDACHS metoprolol succinate ER 200 mg PO DAILY omeprazole 20 mg PO DAILY pen needle, diabetic 5 times a day rosuvastatin 20 mg PO BEDTIME sertraline 50 mg PO DAILY tramadol 50 mg PO Q6H PRN 30 days zaleplon 10 mg PO BEDTIME HPI Comments Details: Jaclyn is a middle-aged woman with a history of longstanding diabetes mellitus complicated by CKD. She has stage IV CKD. Serum creatinine has been stable for the last several months. She is here for regular follow-up. She has history of recurrent hyperkalemia, this has been controlled since reducing losartan dose, she currently takes 50mg daily and is tolerating well. she reports some lower extremity swelling she states she has been eating canned soups with salt, though does make an effort to avoid salt with other meals and does a lot of cooking herself she notes some orthopnea at night, props herself up with her adjustable bed and manages well with this. She denies exertional dyspnea. she is drinking lots of fluids to stay well hydrated she states she has been more fatigued over the last several months she notes leg cramping that has worsened She was seen by general surgery for management of hypercalcemia and enlarged parathyroid gland on recent imaging. per surgery, given unclear if multiple hyperplasia or parathyroid source of hypercalcemia, she has been referred for formal endocrine evaluation, she is awaiting this appointment. she has been referred for transplant evaluation. She has also seen the dialysis educator. Pt is leaning toward HD rather than home dialysis should she need it. 08/20/24 ;Doing ok. Evaluated by Transplant 10/14/23; c/o low back pain - bilateral ; No urinary symptoms 12/09/24;Still with back pain;Para Thryoid surgery was postponed 02/11/25 Underwent salpingooophorectomy- recovered well Parathyroid surgery oh hold- next visit in few weeks 04/08/25 The patient is a 54-year-old female presenting with advanced kidney disease management. Her kidney function has remained stable, and she reports no significant changes in her condition. The patient has a history of hypertension, with current blood pressure readings at 138/78 mmHg, indicating controlled levels. She is currently taking Eliquis, which was recently reintroduced by Dr. Mohamud. The patient reports experiencing dizziness, which may be related to dehydration, as she has been feeling dehydrated more frequently. She denies taking diuretics and has been advised to increase fluid intake, especially in hot weather. The patient has a history of hypercalcemia, which is being monitored, and she is scheduled to see a specialist on the . The elevated calcium levels are related to her kidney condition, and surgical intervention may be considered if necessary. The patient also has a history of diabetes mellitus, with recent concerns about elevated HbA1c levels. She acknowledges dietary indiscretions, which may have contributed to the increase in her blood sugar levels. Peripheral artery disease is also a concern, with previous consultations with a vascular surgeon indicating potential arterial blockages. The patient underwent a procedure in January, and while some discomfort persists, it is expected to improve over time. [facility] Medical History (Updated 04/01/25 @ 11:44 by ANNIKA Rose) Gastroparesis Colon cancer screening Coronary artery dissection Type 2 diabetes mellitus with hyperglycemia Skin tag Atherosclerotic cardiovascular disease Calcific tendinitis of right shoulder Adhesive capsulitis of right shoulder Back pain Upper respiratory infection Arm pain Dizziness Type 2 diabetes mellitus with unspecified complications Dyspnea on exertion SOB (shortness of breath) Headache On anticoagulant therapy Hidradenitis suppurativa Pulmonary embolism Type 2 diabetes mellitus with chronic kidney disease Precordial chest pain Vitamin D deficiency HTN (hypertension) On beta jacqueline at home Axillary hidradenitis suppurativa Proliferative diabetic retinopathy associated with type 2 diabetes mellitus Diabetic polyneuropathy associated with type 2 diabetes mellitus Diabetic nephropathy associated with type 2 diabetes mellitus 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 pylori infection Anxiety and depression Acute angle-closure glaucoma CVA (cerebral vascular accident) GERD (gastroesophageal reflux disease) Hypertension Coronary artery disease Hypercholesterolemia Obesity (BMI 30-39.9) Surgical History S/P removal of left ovary (~01/2025) Status post hysterectomy with oophorectomy History of hysterectomy History of surgery (03/21/23) Hx of excision of mass History of axillary surgery History of axillary surgery (08/21/20) History of esophagogastroduodenoscopy (EGD) History of angioplasty History of cardiac catheterization (~03/30/16) History of endometrial ablation Amputation of right index finger History of tubal ligation Family History Mother Type 2 diabetes mellitus Hypertension Maternal Grandmother Myocardial infarction Paternal Grandmother History of breast cancer Social History Household Members: None Housing: Apartment Are you a primary intensive care ambulance paramedic to a significant other at home: No Do you presently have visiting nurse or other home services: No Alcohol intake: never Comment: medicated, see MAR Patient Tobacco Use Status: Former Tobacco user Tobacco use type: Cigarette e-Cigarette/Vaping Use: Never Used Second Hand Smoke Exposure: Yes Substance Use Type: Marijuana service: No Current occupational status: unemployed Cognitive needs: No Hearing needs: Yes (partially deaf ) Vision needs: Yes Physical Exam Vital Signs: Last Vital Signs Pulse 73 04/08/25 11:30 BP 138/78 04/08/25 11:30 Pulse Ox 98 04/08/25 11:30 Oxygen Delivery Method Room Air 04/08/25 11:30 BMI result Body Mass Index 32.4 Comfortable Neck supple no JVD. Lungs entry equal no rales. Heart S1-S2 heard no gallop or rub. Abdomen soft nontender. Neuro alert awake oriented. No asterixis. Extremities no edema. Results Reviewed Nephrology Results: Hgb, (12.0-16.0) 13.8 g/dl 03/31/25 WBC, (4.8-10.8) 8.2 X10*3/uL 03/31/25 Plt Count, (160-400) 280 X10*3/uL 03/31/25 Sodium, (135-145) 139 mmol/L 03/31/25 Potassium, (3.3-5.1) 4.0 mmol/L 03/31/25 Chloride, (96-108) 112 mmol/L H 03/31/25 Carbon Dioxide, (22-29) 19 mmol/L L 03/31/25 BUN, (9-16) 48 mg/dL H 03/31/25 Creatinine, (0.5-1.4) 3.33 mg/dL H 03/31/25 Calcium, (8.4-10.2) 10.9 mg/dL H 03/31/25 PTH Intact, (8.7-77.1) 829.7 pg/mL H 03/31/25 Renal US 01/31/22 Assessment & Plan Assessment & Plan (1) Chronic kidney disease, stage 4 (severe): Code(s): N18.4 - Chronic kidney disease, stage 4 (severe) Category: Medical (2) Hyperparathyroidism: Code(s): E21.3 - Hyperparathyroidism, unspecified Category: Surgical (3) Essential hypertension: Code(s): I10 - Essential (primary) hypertension Category: Medical (4) Diabetic nephropathy associated with type 2 diabetes mellitus: Code(s): E11.21 - Type 2 diabetes mellitus with diabetic nephropathy Category: Medical (5) Type 2 diabetes mellitus with chronic kidney disease: Code(s): E11.22 - Type 2 diabetes mellitus with diabetic chronic kidney disease Category: Medical Qualifiers: Chronic kidney disease stage: stage 3 (moderate) Chronic kidney disease stage 3 subtype: unspecified whether 3a or 3b Diabetes mellitus terminal press operator insulin use: without terminal press operator use Qualified Code(s): E11.22 - Type 2 diabetes mellitus with diabetic chronic kidney disease; N18.30 - Chronic kidney disease, stage 3 unspecified Plan Jaclyn has stage IV CKD due to underlying diabetic nephropathy. Renal function is at baseline/stable. Goal is to slow the progression of renal disease. Continue to avoid nephrotoxic agents including NSAIDs. Encouraged her to stay on low-sodium diet. Hemoglobin A1c should be maintained less than 7%. Blood pressure - well-controlled. We discussed importance of weight loss as well. She has no evidence of anemia. Hemoglobin was 15.7 in April. Recurrent hypercalcemia, most recent 10.6 in April Intact PTH has been progressively increasing. -has primary hyperparathyroidism. parathyroid scan shows adenoma Referred to surgeon for possible parathyroidectomy- per surgery, given unclear if multiple hyperplasia or parathyroid source of hypercalcemia, she has been referred for formal endocrine evaluation. Await follow up from surgeon preemptive renal transplant evaluation. -not a candidate Pelvic MRI ordered due to pelvic mass Enhancing spiculated mass in the central pelvis measuring 3.2 x 3.0 x 2.6 cm which could represent a metastatic deposit. Correlation with oncologic history is recommended. CT of the chest, abdomen, and pelvis should be considered. s/p [place] oophorectomy She has seen a dialysis nurse educator and leaning toward intermittent HD vs home PD, but will continue to consider. From a renal stand point , No absolute contraindication for parathyroidectomy surgery Orders: Orders Basic Metabolic Panel 2 Months E11.22 - Type 2 diabetes mellitus with diabetic chronic kidney disease, I10 - Essential (primary) hypertension, N18.30 - Chronic kidney disease, stage 3 unspecified Coding Level of Care Code Est Pt Level 4 (95495) Diagnoses Chronic kidney disease, stage 4 (severe) N18.4 Hyperparathyroidism E21.3 Essential hypertension I10 Diabetic nephropathy associated with type 2 diabetes mellitus E11.21 Type 2 diabetes mellitus with stage 3 chronic kidney disease, without long-term current use of insulin, unspecified whether stage 3a or 3b CKD E11.22; N18.30 Chronic kidney disease stage: stage 3 (moderate) Chronic kidney disease stage 3 subtype: unspecified whether 3a or 3b Diabetes mellitus nursing home insulin use: without terminal press operator use
[2025-04-08 11:30] VITALS: BP 138/78; PULSE 73; O2SAT 98; BMI 32.4
--- OUTSIDE RECORDS SUMMARY | 2025-04-08 12:46 | XMS_ITS | Clinical Summary ---
Author Organization [facility] Address [address] [place] [address] Phone Care Team Providers Care Investigative Assistant Name Role Phone Alfredo Sanders MD Primary Care Provider [phone] Allergies Active Allergy Reactions Criticality Noted Date [...] 2025 07/18/2011, 07/22/2010, 08/26/2008 Insurance Care Teams Investigative Assistant Relationship Specialty Start Date End Date Alfredo Sanders MD [facility] [address] [place], [place] PCP - General 10/19/20
--- OUTSIDE RECORDS SUMMARY | 2025-04-08 12:46 | XMS_ITS | Clinical Summary ---
Author Organization [employer] Address [address] [place] [address] Care Team Providers Care Pediatric Registered Nurse Name Role Phone Unavailable Primary Care Provider [...] Panel 1969 SDOH Screening 1969 Sigmoidoscopy 1969 Disability Screening 1969 Alcohol/Substance Use Screening 1981 Hepatitis C Screening 1987 Pap Smear 1990 Cervical Cancer Screening 1999 HPV/Cotest 1999 Mammogram 2009 Pneumococcal Vaccine: 50+ Years (2 of 2 - PCV) 2019 12/26/2017, 02/29/2012 Zoster Vaccines (1 of 2) 2019 COVID-19 Vaccine ( - season) 2024 09/28/2021, 08/30/2021 Hepatitis B Vaccines (2 of 3 - 19+ 3-dose series) 07/09/2024 06/11/2024 Dental Oral Exam 08/22/2024 02/19/2024, , 06/26/2019, Additional history exists Tobacco Screening 02/18/2025 02/19/2024 Influenza Vaccine (Season Ended) 2025 07/12/2023, 08/31/2022, 12/15/2021, Additional history exists Dental X-Ray: Full Mouth 02/19/2027 02/19/2024, 02/06 [...]
--- OUTSIDE RECORDS SUMMARY | 2025-04-08 12:46 | XMS_ITS | Clinical Summary ---
Author Organization [address] [facility] Address [address] [place] [address] Phone Care Team Providers Care Taper And Floater Name Role Phone Alfredo Sanders MD Primary Care Provider [phone] Allergies Active Allergy Reactions Criticality Noted Date Comments Cephalexin Hives,Other 03/08/2016 Hives Cephalexin Monohydrate 06/08/2018 Other Reaction(s): Hives/Urticaria Nsaids (Non-Steroidal Anti-Inflammatory Drug) Hives 06/08/2018 Medications alcohol swabs pads, medicated use as directed 0 Active amLODIPine (NORVASC) 10 mg tablet Take 10 mg by mouth daily. 9 Active amoxicillin (AMOXIL) 500 mg capsule 4 capsules 1 hour before dental work 9 Active aspirin 81 mg EC tablet 1 TABLET DAILY Activ e pen needle, diabetic 32 gauge x 5/32 needle USE FOUR TIMES DAILY 9 Active cholecalciferol (VITAMIN D-3) 25 mcg (1,000 unit) tablet Take 1 Tab by mouth daily. 9 Active clotrimazole (LOTRIMIN) 1 % cream Apply to skin and toenails daily for 12 weeks 4 Active docusate sodium (COLACE) 100 mg capsule TAKE 1 CAPSULE BY MOUTH ONCE DAILY NEEDED 9 Active glucose blood test strip USE TO TEST BS 3 TIMES A DAY OR DIRECTED BY PHYSICIAN 2 Active pen needle, diabetic 31 gauge x 5/16 needle Use up to 4 times daily for insulin 1 Active metoprolol succinate (TOPROL-XL) 200 mg 24 hr tablet Take 1 Tab by mouth daily. 2 Active lancets lancets Use to test b/s tid 2 Active ranitidine HCl (ZANTAC 150 EFFERDOSE ORAL) ranitidine (ZANTAC) 150 MG tablet: TAKE 1 TABLET BY MOUTH TWICE DAILY 9 Active rosuvastatin (CRESTOR) 10 mg tablet Take 10 mg by mouth daily. 9 Active blood glucose control, normal (OneTouch Ultra Control) solution ONE TOUCH ULTRA CONTROL SOLN: as directed 6 Active Farxiga 10 mg tablet Take 1 tablet (10 mg total) by mouth 1 (one) time each day. Active losartan (COZAAR) 50 mg tablet Take 1 tablet (50 mg total) by mouth 1 (one) time each day. 4 Active ezetimibe (ZETIA) 10 mg tablet Take 1 tablet (10 mg total) by mouth 1 (one) time each day. Active omeprazole (PriLOSEC) [address] capsule Take 1 capsule (20 mg total) by mouth 1 (one) time each day. 5 Active latanoprost (XALATAN) 0.005 % ophthalmic solution Administer 1 drop into both eyes at bedtime. 4 Active bisacodyL (DULCOLAX) 5 mg EC tablet Take 2 tablets (10 mg total) by mouth 1 (one) time each day if needed. at bedtime 4 Active zaleplon (SONATA) 10 mg capsule Take 1 capsule (10 mg total) by mouth at bedtime as needed. 5 Active sertraline (ZOLOFT) 25 mg tablet Take 1 tablet (25 mg total) by mouth 1 (one) time each day. 5 Active senna 8.6 mg tablet Take 2 tablets (17.2 mg total) by mouth at bedtime. at bedtime 5 Active LORazepam (ATIVAN) 1 mg tablet Take 0.5-1 tablets (0.5-1 mg total) by mouth every other day. PRN Max Daily Amount: 1 mg 4 Active blood-glucose,re ceiver,cont (FreeStyle Patrick 3 [place]) miscIndications: Type II or unspecified type diabetes mellitus with ophthalmic manifestations, uncontrolled(250 .52) ([place] [address], [facility] V28) Use to monitor blood sugars. 1 each 5 Active blood-glucose sensor (FreeStyle Patrick 3 Plus Sensor) deviceIndication s:Type II or unspecified type diabetes mellitus with ophthalmic manifestations, uncontrolled(250 .52) ([place] [address], [facility] V28) Change sensor every 15 days. 6 each 1 5 Active Additional Information Patient not taking.Reported on 02/19/2025 insulin glargine U-300 conc (TOUJEO MAX SoloStar) 300 unit/mL (3 mL) CONCENTRATED injection pen Use 60-64 units at bedtime 5 Active insulin lispro (HumaLOG KwikPen Insulin) 100 unit/mL injection pen Use three times a day before meals: <70 units, 71-100: 5 units, 101-150: 10 units, 151-200: 15 units, 201-250: 20 units, 251-300: 25 units, 301-350: 28 units, 351-400: 30 units, >400: use 32 units. 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, not stated as uncontrolled(250.41) ([facility] V24, [facility] V28) 09/02/2014 Secondary diabetes mellitus with neurological manifestations, 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) ([facility] V24, [facility] V28) 09/02/2014 Diabetic neuropathy ([place] [address], [facility] V28) 0 03/25/2011 Hyperlipidemia 07/21/2010 Carpal tunnel syndrome 11/24/2008 Overview (09/02/2024): Bilateral; L>R Uterine fibroid 08/26/2008 Stroke ([facility] V24, [facility] V28) 08/13/2008 Overview (09/02/2024): Left Cerebellar; 07/16; LV thrombus Myocardial infarct ([facility] V24, [facility] V28) Overview (09/02/2024): Inferior; Left Ventricular Thrombus;07/16; [place] Type II or unspecified type diabetes mellitus with ophthalmic manifestations, 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) ([facility] V24, [facility] V28) 06/23/2007 Iron deficiency anemia 12/26/2005 Encounters Date Type Department Care Team Description 02/19/2025 10:00 AM EDT Office Visit Endocrinology [address] [phone] Maria E Ferrer PA Type II or unspecified type diabetes mellitus with ophthalmic manifestations, 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) ([facility] V24, [facility] V28) (Primary Dx); Stage 4 chronic kidney disease ([facility] V24, [facility] V28); Hyperparathyroidism ([facility] V24) 01/22/2025 8:40 AM EDT Consult Endocrinology [address] [phone] Maria E Ferrer PA Type II or unspecified type diabetes mellitus with ophthalmic manifestations, 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) ([facility] V24, [facility] V28) (Primary Dx); Primary hypertension; Stage 4 chronic kidney disease ([facility] V24, [facility] V28); Hyperparathyroidism ([facility] V24); Hyperlipidemia, unspecified hyperlipidemia type from Last 3 Months Immunizations Name Administration [...] 07/29/2008 DX :Non-compliance with treatment Myocardial infarct ([facility] V24, [facility] V28) 08/13/2008 DX:Myocardial infarct ([facility]); COMMENT: Inferior; 07/16; [place] Stroke ([facility] V24, [facility] V28) 08/13/2008 DX:Stroke ([facility]); COMMENT: Left Cerebellar Tumors of body [...] 07/21/2010 DX:Other and unspecified hyperlipidemia Diabetic neuropathy ([facility] V24, [facility] V28) 03/25/2011 DX:Diabetic neuropathy ([facility]) Family History Medical History Relation Name [...] Sign Reading Time Taken Comments Blood Pressure 118/72 02/19/2025 10:30 AM EDT Pulse 61 02/19/2025 10:30 AM EDT Temperature 36.2 C (97.2 F) 02/19/2025 10:30 AM EDT Respiratory Rate - - Oxygen Saturation 95% 02/19/2025 10:30 AM EDT Inhaled Oxygen Concentration - - Weight 91.6 kg (202 lb) 02/19/2025 10:30 AM EDT Height 165.1 cm (5' 5 ) 02/19/2025 10:30 AM EDT Body Mass Index 33.61 02/19/2025 10:30 AM EDT Plan of Treatment Health Maintenance Due Date Last Done Comments Breast Cancer Screening 1969 Diabetes: Annual Foot Exam 1979 Diabetes: Annual Retina Eye Exam 1979 Zoster Vaccines (1 of 2) 1988 Cervical Cancer Screening: Pap Smear 01/13/2013 01/13/2010 Pneumococcal Vaccine: 50+ Years (2 of 2 - PCV) 12/26/2018 12/26/2017, 02/29/2012 Pneumococcal Vaccine: Pediatrics (0 to 5 Years) and At-Risk Patients (6 to 64 Years) (2 of 2 - PCV) 12/26/2018 12/26/2017, 02/29/2012 COVID-19 Vaccine (3 - Moderna risk series) [...] type diabetes mellitus with ophthalmic manifestations, 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) ([facility] V24, [facility] V28) URINE ALBUMIN CREATININE RATIO Routine 03/25/2011 ANNUAL BMP BLOOD TEST Routine 03/25/2011 LIPID PANEL Routine 03/25/2011 HEPATITIS C SCREENING Routine 01/13/2010 HIV SCREENING Routine 01/13/2010 PAP SMEAR Routine 01/13/2010 from Last 3 Months or Most Recently Relevant to Health Maintenance Results * (ABNORMAL) Hemoglobin A1c (01/22/2025 9:42 AM EDT) [facility] Hemoglobin A1C 8.8(H) <6.5 % LAB CHEMISTRY METHOD 01/22/2025 2:08 PM EDT [facility] Mean Bld Glu Estim. 206 mg/dL LAB CHEMISTRY METHOD 01/22/2025 2:08 PM EDT [facility] Blood Venous blood specimen / Unknown Venipuncture / Unknown 01/22/2025 9:42 AM EDT 01/22/2025 9:42 AM EDT Maria E BARRON LAB BLOOD ORDERABLES Final Resul t [facility] [address] [place] [address], [place] [phone] * Urine Albumin Creatinine Ratio (03/25/2011) [facility] Urine Albumin Creatinine Ratio Abstracted Result [facility] Provider HEALTH MAINTENANCE Final Result * Annual BMP Blood Test (03/25/2011) [facility] Annual BMP Blood Test Abstracted Result [facility] Provider HEALTH MAINTENANCE Final Result * (ABNORMAL) Lipid panel (03/25/2011) [facility] LDL/HDL Ratio 6(A) 0 - 4 Triglycerides 162(A) 0 - 150 mg/dL Cholesterol 254(A) 0 - 200 mg/dL HDL 45 >=40 mg/dL LDL Cholesterol 177(A) 0 - 100 mg/dL Blood Venous blood specimen / Unknown Result [facility] Historical Provider LAB BLOOD ORDERABLES Cassie l Result * HIV Screening (01/13/2010) [facility] HIV Screening Abstracted [facility] Provider HEALTH MAINTENANCE Final Result * Hepatitis C Screening (01/13/2010) [facility] Hepatitis C Screening Abstracted Historical Provider HEALTH MAINTENANCE Final Result * Pap Smear (01/13/2010) Pap smear Abstracted ,Negative Historical Provider HEALTH MAINTENANCE Final Result from Last 3 Months or Most Recently Relevant to Health Maintenance Insurance [facility] [place] [employer] Care Teams Taper And Floater Relationship Specialty Start Date End Date Alfredo Sanders MD [address] [place] [address] [address] [facility] [place] [address] PCP - General Internal Medicine 04/01/19
--- OUTSIDE RECORDS SUMMARY | 2025-04-08 12:46 | XMS_ITS | Patient Health Record ---
Author Organization [facility] Address [address] [place] [address] Support Name Relationship Address Phone Phoebe Ruelas Guarantor Unknown Unavailable Reason For Referral No Information Medications Medication SIG (Take, Route, Frequency, Duration) Notes Start Date End Date Status ALPRAZolam 1 MG take 1 tablet by ora l route 3 times every day Oral (Carlos-) Active OneTouch Ultra Test apply by [facility]Non-D rug; Combo Route) route In Vitro (Carlos-) 02/09/2015 Active FLUoxetine HCl (PMDD) 20 MG take 1 capsule by oral route every day in the morning Oral (Carlos-) Active Ibuprofen 800 MG take 1 tablet by ora l route 3 times every day with food Oral (Carlos-) 04/03/2014 Active Cymbalta 30 MG take 3 (90MG) by ora l route every day Oral (Carlos-) Active traZODone HCl 50 MG TAKE 1 TABLET AT BED TIME DIRECTED Oral (Carlos-) Active Metoprolol Succinate ER 200 MG TAKE 1 TABLET BY MOUTH EVERY DAY Oral (Carlos-) 05/28/2015 Active NovoTwist 30G X 8 MM to use with insulin tid dx: 250.0 35 (Carlos-) 05/28/2015 Active KP Ferrous Sulfate 325 (65 Fe) MG take 1 tablet by ORAL route 2 times every day Oral (Carlos-) 10/24/2013 Active Atorvastatin Calcium 80 MG take 1 tablet by oral route every day Oral (Carlos-) 05/28/2015 Active HumaLOG KwikPen 100 UNIT/ML inject 10 units prior to meals three times daily Subcutaneous (Carlos-) 05/28/2015 Active Lantus SoloStar 100 UNIT/ML inject 60 units SQ at night Subcutaneous (Carlos-) 05/28/2015 Active Lisinopril 10 MG TAKE 1 TABLET BY CINTHIA TH EVERY DAY Oral (Carlos-) 05/28/2015 Active OneTouch UltraSoft Lancets check glcuose up to three times daily 35 (Carlos-) 02/09/2015 Active Plan Of Treatment No Information Insurance Providers Payer Name Payer Address Payer Phone Subscriber Number Group Number Insured Name Patient Relationship to Insured Coverage Start Date Coverage End Date LYLA King [address] [place], [place] [phone] [id number] Phoebe Ruelas Self - patient is the insured [employer] [place] [address] [place] [address] [phone] [id number] Phoebe Ruelas Self - patient is the insured
--- OUTSIDE RECORDS SUMMARY | 2025-04-08 12:46 | XMS_ITS | Clinical Summary ---
Author Organization [facility] Address [address] [place] [address] Care Team Providers Care Sulfonator Operator Name Role Phone Unavailable Primary Care [...] Date Diagnosed Date PAD (peripheral artery disease) ([facility] V24) Overview (03/20/2016): With ulcer of right foot- Followed [facility] [place] [facility] Essential hypertension 03/08/2016 Diabetes mellitus [...] Plan of Treatment Not on file Insurance [place]
== END 2025-04-08 11:43 | disposition home or self-care (01) ==
LOC: HO.HKA 11:31
PROVIDERS: PCP Internal Medicine; Visit Provider Internal Medicine Hypertension Specialist
DX: I12.9 Hypertensive chronic kidney disease with stage 1 through stage 4 chronic kidney disease, or unspecified chronic kidney disease (principal); N18.4 Chronic kidney disease, stage 4 (severe); E21.3 Hyperparathyroidism, unspecified; E11.21 Type 2 diabetes mellitus with diabetic nephropathy; E11.22 Type 2 diabetes mellitus with diabetic chronic kidney disease; N18.30 Chronic kidney disease, stage 3 unspecified
CPT/HCPCS: 99214

== ENCOUNTER → 2025-04-08 11:30 | Outpatient (BNVA) | payer OTHER, SELFPAY | PROVIDERS: PCP Internal Medicine; Visit Provider Internal Medicine Hypertension Specialist | DX: N18.4 Chronic kidney disease, stage 4 (severe) (principal); E21.3 Hyperparathyroidism, unspecified; I10 Essential (primary) hypertension; E11.21 Type 2 diabetes mellitus with diabetic nephropathy; E11.22 Type 2 diabetes mellitus with diabetic chronic kidney disease | CPT/HCPCS: 99212 ==

== ENCOUNTER 2025-05-21 09:02 | Outpatient (AMB) | payer OTHER, SELFPAY ==
[2025-05-21 09:14] VITALS: BP 155/87; PULSE 61; BMI 32.9
--- NOTE | 2025-05-21 09:14 | MHC.OFFVIS ---
Vital Signs 05/21/25 09:14 Height 5 ft 6 in Weight 204 lb 2.369 oz BMI 32.9 BP 155/87 H Blood Pressure Location Lt brachial Position Sitting Pulse 61 Intake Visit Reasons: Evaluate Reglan upper abdominal bloating Intake Note: Phoebe presents in office today in follow up of abdominal bloating and to evaluate Reglan. CC: Patient states that she feels that her acid reflux tripled , she states that it is so bad that if feels like she is having a heart attack. Per patinet constipation is on and off. Allergies cephalexin (From KEFLEX) Allergy (Intermediate, Verified 05/21/25 09:15) HIVES HPI HPI Evaluate Reglan upper abdominal bloating: Details: Assessment & Plan (1) Chronic idiopathic constipation: Code(s): K59.04 - Chronic idiopathic constipation Category: Medical (2) GERD (gastroesophageal reflux disease): Code(s): K21.9 - Gastro-esophageal reflux disease without esophagitis Category: Medical Qualifiers: Esophagitis presence: without esophagitis Qualified Code(s): K21.9 - Gastro-esophageal reflux disease without esophagitis (3) Right lower quadrant abdominal pain: Code(s): R10.31 - Right lower quadrant pain Category: Medical (4) Gastroparesis: Comment: 2020 GES=mild delay Code(s): K31.84 - Gastroparesis Category: Medical Plan She was doing well with the bisacodyl. However she has had a big change in that they found what they thought was a mass on her right ovary and she was sent to [facility] to have a salpingo-oophorectomy. After this her upper abdominal bloating severely worsened. In the past she has known gastroparesis from her 2020 gastric emptying study. That showed a mild delay at that time, however her sugars have been fairly uncontrolled at least over the past year with her A1cs averaging between 9 and 10%. It is extremely likely that the gastroparesis has worsened. Overall, she has an extremely complex patient having a history of aortic dissection with a thrombus, followed by an PR and pulmonary emboli, she has stage 4 kidney disease and not a good candidate for transplant based on her cardiac status, and she has hyperparathyroidism. Fortunately, the biopsy of the mass in her ovary was not malignant. Next once also for She became sleepy on the metoclopramide in the past. I am going to restart her on the 5 mg which she is agreeable to and she will start by trying to do half a pill 4 times a day and see how this affects the upper abdominal bloating. This may also make her constipation control easier since in general she is managing well but she still has better and worse days in terms of moving her bowels. Her omeprazole controls her GERD. Return office visit in 6 weeks Medications: New bisacodyl (Dulcolax (bisacodyl)) 10 mg (2 x 5 mg) PO BEDTIME 180 tabs 1RF 90 days K59.04 - Chronic idiopathic constipation metoclopramide HCl (Reglan) 5 mg PO QIDACHS 120 tabs 6RF K31.84 - Gastroparesis Refilled omeprazole 20 mg PO DAILY 90 caps 1RF E11.22 - Type 2 diabetes mellitus with diabetic chronic kidney disease, N18.30 - Chronic kidney disease, stage 3 unspecified Discontinued sennosides (senna) Discontinued Reason: Doctor's Order 17.2 mg (2 x 8.6 mg) PO BEDTIME 60 tabs 6RF On Hold dicyclomine Hold Comment: no cramping and paresis 20 mg PO QID 120 tabs 1RF TODAY'S VISIT She has been having breakthrough GERD that happens mostly at night or overnight. She is only on o2o 20mg qd, so likely this is medication fade. Will try 20mg bid...but then remember she has CKD stage 4. Will change to lansoprazole bid 15mg. Still struggling with CIC. If 1 bisacodyl has cramping but 2 she has to stay home daily. I think she needs to develop a schedule, and 1 a day may work once she moves the initial bowel bolus w/o cramping. She has a lot of bloating as well. She has a strong apin 8/10 in the am and when she walks in shahriar bilateral flanks. It is cramping in nature and she can not ID any relieving factors except to breathe it out. Unsure if this is bowel or back. Some evidence of degenerative disc disease on a chest CT by think we will get x-rays of the thoracic to get an more focused study. She was on dicyclomine but we stopped it due its potential constipating nature we may need to consider another bowel antispasmodic depending on what the x-ray reveals. Return office visit in 6 weeks [facility] Medical History Gastroparesis Colon cancer screening Coronary artery dissection Type 2 diabetes mellitus with hyperglycemia Skin tag Atherosclerotic cardiovascular disease Calcific tendinitis of right shoulder Adhesive capsulitis of right shoulder Back pain Upper respiratory infection Arm pain Dizziness Type 2 diabetes mellitus with unspecified complications Dyspnea on exertion SOB (shortness of breath) Headache On anticoagulant therapy Hidradenitis suppurativa Pulmonary embolism Type 2 diabetes mellitus with chronic kidney disease Precordial chest pain Vitamin D deficiency HTN (hypertension) On beta jacqueline at home Axillary hidradenitis suppurativa Proliferative diabetic retinopathy associated with type 2 diabetes mellitus Diabetic polyneuropathy associated with type 2 diabetes mellitus Diabetic nephropathy associated with type 2 diabetes mellitus 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 pylori infection Anxiety and depression Acute angle-closure glaucoma CVA (cerebral vascular accident) GERD (gastroesophageal reflux disease) Hypertension Coronary artery disease Hypercholesterolemia Obesity (BMI 30-39.9) Surgical History S/P removal of left ovary (~01/2025) Status post hysterectomy with oophorectomy History of hysterectomy History of surgery (03/21/23) Hx of excision of mass History of axillary surgery History of axillary surgery (08/21/20) History of esophagogastroduodenoscopy (EGD) History of angioplasty History of cardiac catheterization (~03/30/16) History of endometrial ablation Amputation of right index finger History of tubal ligation Family History Mother Type 2 diabetes mellitus Hypertension Maternal Grandmother Myocardial infarction Paternal Grandmother History of breast cancer Social History Household Members: None Housing: Apartment Are you a primary care services manager to a significant other at home: No Do you presently have visiting nurse or other home services: No Alcohol intake: never Comment: medicated, see MAR Patient Tobacco Use Status: Former Tobacco user Tobacco use type: Cigarette e-Cigarette/Vaping Use: Never Used Second Hand Smoke Exposure: Yes Substance Use Type: Marijuana service: No Current occupational status: unemployed Cognitive needs: No Hearing needs: Yes (partially deaf ) Vision needs: Yes Review of Systems Const Denies fatigue, Denies fever(s), Denies night sweats, Denies poor appetite and Denies weight loss ENT Reports Normal hearing present, Denies dental pain, Denies dysphagia, Denies hearing loss, Denies mouth pain, Denies odynophagia, Denies throat swelling, Denies tongue swelling and Reports other (Dentition adequate) Card Reports chest pain Resp Reports no additional complaints GI Details: Denies abdominal pain, Denies melena, Denies bloating, Denies hematochezia, Reports constipation, Denies GI cramping, Denies dysphagia, Denies excessive flatus, Denies early satiety, Reports heartburn, Denies diarrhea, Denies nausea, Denies odynophagia, Denies vomiting and Denies hematemesis Reports flank pain Musc Reports back pain Skin/Breast Denies pruritus, Denies lesions, Denies rash and Denies jaundice Neuro Reports Normal hearing present and Denies Abnormal speech present Endo Denies fatigue Aller/Immun Denies throat swelling and Denies tongue swelling Physical Exam Const General: cooperative, no acute distress, well developed and well groomed Nutritional Appearance: well nourished and overweight Orientation/consciousness: oriented to person, oriented to place and oriented to time Limitations: No language barrier HEENT Head: Yes normocephalic and Yes atraumatic Eyes General: appearance normal, both eyes and all related structures Pupils: Equal, round and reactive pupils present Neck Neck: Yes normal visual inspection and Yes no lymphadenopathy Thyroid: Thyroid normal Resp Effort & Inspection: normal respiratory effort and able to speak in complete sentences Auscultation: clear to auscultation bilaterally Cardio Rate: regular rate Rhythm: regular rhythm Heart sounds: Normal, physiologic split S2 sound present Peripheral pulses: radial pulses present and posterior tibial pulses present GI Inspection: No distended, No Abdominal panniculus present and Yes obesity Palpation (GI): Soft to palpation, nontender, no guarding, not rigid and No hepatosplenomegaly present Percussion: Yes normal to percussion Auscultation: normal bowel sounds Rectal Exam - Female: deferred Skin General skin exam: no rashes or lesions noted, turgor normal, skin not dry, no jaundice, No spider nevi and no striae Rashes: no rashes Nails: normal Neuro General: oriented to person, oriented to place and oriented to time Cranial nerves: Yes Equal, round and reactive pupils present and Yes Normal hearing present Speech: No Abnormal speech present Extrem General: Yes normal to inspection, No clubbing, No cyanosis and No edema Psych Appearance: grossly normal and well kempt Mental Status: mental status grossly normal Speech and movement: Normal speech and movement present Affect: normal affect Attitude: cooperative Thought process: Normal thought process present and not confabulating Thought content: Normal thought content present Insight: Good insight present (Psych) Judgement: Good judgement present (Psych) Assessment & Plan Assessment & Plan (1) Thoracic back pain: Code(s): M54.6 - Pain in thoracic spine Category: Medical (2) GERD (gastroesophageal reflux disease): Code(s): K21.9 - Gastro-esophageal reflux disease without esophagitis Category: Medical Qualifiers: Esophagitis presence: without esophagitis Qualified Code(s): K21.9 - Gastro-esophageal reflux disease without esophagitis (3) Chronic kidney disease, stage 4 (severe): Code(s): N18.4 - Chronic kidney disease, stage 4 (severe) Category: Medical Plan She has been having breakthrough GERD that happens mostly at night or overnight. She is only on o2o 20mg qd, so likely this is medication fade. Will try 20mg bid...but then remember she has CKD stage 4. Will change to lansoprazole bid 15mg. Still struggling with CIC. If 1 bisacodyl has cramping but 2 she has to stay home daily. I think she needs to develop a schedule, and 1 a day may work once she moves the initial bowel bolus w/o cramping. She has a lot of bloating as well. She has a strong pain 8/10 in the am and when she walks in the bilateral flanks. It is cramping in nature and she can not ID any relieving factors except to breathe it out. Unsure if this is bowel or back. Some evidence of degenerative disc disease on a chest CT by think we will get x-rays of the thoracic to get an more focused study. She was on dicyclomine but we stopped it due its potential constipating nature we may need to consider another bowel antispasmodic depending on what the x-ray reveals. Return office visit in 6 weeks Orders: Orders XR thoracic spine 2V Today M54.6 - Pain in thoracic spine Medications: New lansoprazole 15 mg PO BID 60 caps 6RF K21.9 - Gastro-esophageal reflux disease without esophagitis, N18.4 - Chronic kidney disease, stage 4 (severe) Refilled metoclopramide HCl (Reglan) 5 mg PO QIDACHS 120 tabs 6RF K31.84 - Gastroparesis bisacodyl (Dulcolax (bisacodyl)) 10 mg (2 x 5 mg) PO BEDTIME 180 tabs 1RF 90 days K59.04 - Chronic idiopathic constipation Discontinued dicyclomine Discontinued Reason: Doctor's Order 20 mg PO QID 120 tabs 1RF Coding Level of Care Code Est Pt Level 4 (77452) Diagnoses Thoracic back pain M54.6 Gastroesophageal reflux disease without esophagitis K21.9 Esophagitis presence: without esophagitis Chronic kidney disease, stage 4 (severe) N18.4 Time Spent (min) 33
--- OUTSIDE RECORDS SUMMARY | 2025-05-21 09:24 | XMS_ITS | Patient Health Record ---
Author Organization [facility] Address [address] [place] [address] Support Name Relationship Address Phone Phoebe Ruelas Guarantor Unknown Unavailable Reason For Referral No Information Medications Medication SIG (Take, Route, Frequency, Duration) Notes Start Date End Date Status ALPRAZolam 1 MG take 1 tablet by ora l route 3 times every day Oral (Carlos-) Active OneTouch Ultra Test apply by [facility]Non-D rug; Combo Route) route In Vitro (Carlos-) [...] End Date LYLA King [address] [place], [place] [id number] [phone] Phoebe Ruelas Self - patient is the insured DENTAL Medicaid [place] [address] [place] [address] [phone] [id number] Phoebe Ruelas Self - patient is the insured
--- OUTSIDE RECORDS SUMMARY | 2025-05-21 09:24 | XMS_ITS | Clinical Summary ---
Author Organization [facility] Address [address] [place] [address] Phone Care Team Providers Care Mixer Helper Name Role Phone Alfredo Sanders MD Primary [...] with treatment 07/29/2008 Iron deficiency anemia 12/26/2005 Encounters Date Type Department Care Team Description 04/07/2025 Orders Only [facility] [address] [phone] Provider, Aps External from Last 3 Months Immunizations Immunization Administration Dates Next Due H1N1 [...] series) 1988 Pneumococcal Vaccine: 50+ Ye ars (2 of 2 - PCV) 02/28/2013 02/29/2012 Colorectal Cancer Screening: Annual FOBT 2018 Colorectal Cancer Screening: Colonoscopy 2018 Colorectal Cancer Screening: Sigmoidoscopy 2018 Diabetes: Ophthalmology Exam 11/06/2020, 01/20/2010, 09/11/2008, Additional history exists Diabetes: Pedal Pulse Checked 11/06/2020 Diabetes: Sensory Foot Exam 11/06/2020 Diabetes: Visual Foot Exam 11/06/2020 Diabetes: Hemoglobin A1C 04/23/2025 01/22/2025 Influenza Vaccine (#1) 2025 1, 07/22/2010, 08/26/2008 Pneumococcal Vaccine: Peds ( 0 to 5 Years) and At-Risk Patients (6 to 49 Years) Discontinued 02/29/2012 Procedures Procedure Name Priority Date/Time Associated Diagnosis Comments VARICELLA ZOSTER ANTIBODY, IGG Routine 04/07/2025 12:19 PM EDT HIV-1/2 ANTIGEN AND ANTIBODIES, FOURTH GENERATION, WITH Routine 04/07/2025 12:19 PM EDT CYTOMEGALOVIRUS ANTIBODY, IGG Routine 04/07/2025 12:19 PM EDT RUBELLA ANTIBODY, IGG Routine 04/07/2025 12:19 PM EDT T PALLIDUM SCREENING CASCADE Routine 04/07/2025 12:19 PM EDT MANOHAR-OLIVER VIRUS VCA ANTIBODY PANEL Routine 04/07/2025 12:19 PM EDT from Last 3 Months Results * HIV-1/2 Ag and Ab, Fourth Generation, w/Reflexes (04/07/2025 12:19 PM EDT) HIV Screen 4th Generation wRfx Non Reactive Non Reactive [facility] [phone] Comment: HIV-1/HIV-2 antibodies and HIV-1 p24 antigen were NOT detected. There is no laboratory evidence of HIV infection. HIV Negative 04/07/2025 12:1 9 PM EDT 04/07/2025 [facility] External Provider LAB BLOOD ORDERABLES Final Result [facility] [address] [place] [address] * T PALLIDUM SCREENING CASCADE (04/07/2025 12:19 PM EDT) Pathologist [facility] T pallidum Antibodies (TP-PA) Non Reactive Non Reactive [facility] Interpretation Comment [facility] [place] Comment: Syphilis: Treponemal Antibodies with Reflex to RPR and RPR Titer, Reverse Screening and Diagnosis Algorithm Treponemal Treponemal Ab RPR, Qn Ab, TPPA Final Interpretation -------- Non N/A N/A No laboratory evidence Reactive of syphilis. Retest in 2-4 weeks if recent exposure is suspected. -------- Reactive Non Non Treponemal antibodies Reactive Reactive not confirmed. Inconclusive for syphilis; potential early syphilis, possible false positive. Retest in 2-4 weeks if recent exposure is suspected. -------- Reactive Non Reactive Treponemal antibodies Reactive detected. Consistent with past or current (potential early) syphilis. -------- Reactive >/=1:1 N/A Treponemal and nontreponemal antibodies detected. Consistent with current or past syphilis. 04/07/2025 12:1 9 PM EDT 04/07/2025 [facility] External Provider LAB BLOOD ORDERABLES Final Result [facility] [address] [place] [address] * (ABNORMAL) Manohar-Oliver virus VCA antibody panel (04/07/2025 12:19 PM EDT) Pathologist [facility] EBV Antibody to Viral Capsid Antigen IgM <36.0 0.0 - 35.9 U/mL [facility] Comment: Negative <36.0 Equivocal 36.0 - 43.9 Positive >43.9 EBV VIRAL CAPSID AG (VCA) AB (IGG) 351.0(H) 0.0 - 17.9 U/mL [facility] Comment: Negative <18.0 Equivocal 18.0 - 21.9 Positive >21.9 EBV NUCLEAR AG (EBNA) IgG 99.4(H) 0.0 - 17.9 U/mL [place] Comment: Negative <18.0 Equivocal 18.0 - 21.9 Positive >21.9 Interpretation: Comment [facility] Comment: EBV Interpretation Chart Pedraza: Antibody Present + Antibody Absent - Interpretation VCA-IgM VCA-IgG EBNA-IgG No previous infection/ - - - Susceptible Primary infection (new + + - or recent) Past Infection +or- + + See comment below* + - - *Results indicate infection with EBV at some time however cannot predict the timing of the infection since antibodies to EBNA usually develop after primary infection or, alternatively, approximately 5-10% of patients with EBV never develop antibodies to EBNA. 04/07/2025 12:1 9 PM EDT 04/07/2025 Narrative [facility] - 04/09/2025 8:06 AM EDT Specimen Comment: A duplicate report has been generated due to demographic updates. [facility] External Provider LAB BLOOD ORDERABLES Final Result Performing Organization Address City/[facility]/ZIP Co de Phone Number [facility] [address], [address] [place] [address] * Rubella antibody, IgG (04/07/2025 12:19 PM EDT) [facility] Rubella IgG Quant 1.95 Immune >0.99 index [facility] [place] Comment: Non-immune <0.90 Equivocal 0.90 - 0.99 Immune >0.99 04/07/2025 12:1 9 PM EDT 04/07/2025 [facility] External Provider LAB BLOOD ORDERABLES Final Result [facility] [place] [address], [address] [place] [address] * (ABNORMAL) Cytomegalovirus antibody, IgG (04/07/2025 12:19 PM EDT) Pathologist [facility] CMV IgG >10.00(H) 0.00 - 0.59 U/mL [facility] Comment: Negative <0.60 Equivocal 0.60 - 0.69 Positive >0.69 04/07/2025 12:1 9 PM EDT 04/07/2025 [facility] External Provider LAB BLOOD ORDERABLES Final Result [facility] [address] [place] [address] * Varicella zoster antibody, IgG (04/07/2025 12:19 PM EDT) Pathologist [facility] Varicella IgG Reactive Non Reactive [facility] Comment: Please note reference interval change A Reactive result is considered evidence of immunity to VZV. Reactive indicates that VZV IgG was detected consistent with previous infection and/or vaccination. A Non Reactive result indicates that VZV IgG was not detected suggesting that immunity has not been acquired. 04/07/2025 12:1 9 PM EDT 04/07/2025 [facility] External Provider LAB BLOOD ORDERABLES Final Result Performing Organization Address City/[facility] Co de Phone Number [id number] [employer]prjuan [facility] [address], [address] [place] [address] from Last 3 Months Insurance [facility] Medicaid [facility] Medicaid Care Teams Mixer Helper Relationship Specialty Start Date End Date Alfredo Sanders MD [facility] [address] [place], [place] PCP - General 10/19/20
--- OUTSIDE RECORDS SUMMARY | 2025-05-21 09:24 | XMS_ITS | Clinical Summary ---
Author Organization [facility] Address [address] [place] [address] Care Team Providers Care Steam And Power Superintendent Name Role Phone Unavailable Primary Care Provider [...] Date Diagnosed Date PAD (peripheral artery disease) ([facility] V24) Overview (03/20/2016): With ulcer of right foot- Followed [facility] [place] [facility] Essential hypertension 03/08/2016 Diabetes mellitus [...]
--- OUTSIDE RECORDS SUMMARY | 2025-05-21 09:24 | XMS_ITS | Clinical Summary ---
Author Organization [employer] Address [address] [place] [address] Care Team Providers Care School Examiner Name Role Phone Unavailable Primary Care Provider [...] Normal oral exam 02/19/2024 Complete edentulism 02/19/2024 Encounters Date Type Department Care Team Description 05/12/2025 Outside Procedure [facility] [address] [place] [address] Kelvin Tavarezn, OD Presbyopia (Primary Dx) 05/07/2025 2:15 PM EDT Office Visit [facility] [address] [place] [phone] Kelvin Tavarezn, OD Regular astigmatism of both eyes (Primary Dx) from Last 3 Months Social History Tobacco Use Types Packs/Day Years [...] FIT DNA/Cologuard 1969 FIT 1969 FOBT 1969 Lipid Panel 1969 SDOH Screening 1969 Sigmoidoscopy 1969 Disability Screening 1969 Alcohol/Substance Use Screening 1981 Hepatitis C Screening 1987 Pap Smear 1990 Cervical Cancer Screening 1999 HPV/Cotest 1999 Mammogram 2009 Pneumococcal Vaccine: 50+ Years (2 of 2 - PCV) 2019 12/26/2017, 02/29/2012 Zoster Vaccines (1 of 2) 2019 COVID-19 Vaccine (3 - 2023- season) 2024 09/28/2021, 08/30/2021 Dental Oral Exam 08/22/2024 02/19/2024, , 06/26/2019, Additional history exists Tobacco Screening 02/18/2025 02/19/2024 Influenza Vaccine (#1) 2025 , 07/12/2023, 08/31/2022, Additional history exists Dental X-Ray: Full Mouth 02/19/2027 02/19/2024, 02/06 DTaP/Tdap/Td Vaccines (4 - Td or Tdap) 04/07/2027 04/07/2017, 02/29/2012, 12/04/2009 RSV Patients and Patients Aged 60 years or older (1 - 1-dose 75+ series) 2044 Hepatitis B Vaccines Completed 12/12/2024, 07/23/2024, 06/11/2024 HIV Screening Completed 04/07/2025 HIB Vaccines Aged Out No longer eligi [...] Most Recently Relevant to Health Maintenance Insurance [facility] ([place] [place] AD[place]
--- OUTSIDE RECORDS SUMMARY | 2025-05-21 09:25 | XMS_ITS | Clinical Summary ---
Author Organization [address] [facility] Address [address] [place] [address] Phone Care Team Providers Care Pan Greaser Name Role Phone Alfredo Sanders MD Primary Care Provider [phone] Allergies Active Allergy Reactions Criticality Noted Date [...] 4 Active blood-glucose,re ceiver,cont (FreeStyle Patrick 3 Cosby) miscIndications: Type II or unspecified type diabetes mellitus with ophthalmic manifestations, uncontrolled(250 .52) ([place] [address], [facility] V28) Use to monitor blood sugars. 1 each 5 Active blood-glucose sensor (FreeStyle Patrick 3 Plus Sensor) deviceIndication s:Type II or unspecified type diabetes mellitus with ophthalmic manifestations, uncontrolled(250 .52) ([place] [address], [facility] V28) Change sensor every 15 days. 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, not stated as uncontrolled(250.41) ([facility] V24, [facility] V28) 09/02/2014 Secondary diabetes mellitus with neurological manifestations, 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) ([facility] V24, [facility] V28) 09/02/2014 Diabetic neuropathy ([place] [address], [facility] V28) 0 03/25/2011 Hyperlipidemia 07/21/2010 Carpal tunnel syndrome 11/24/2008 Overview (09/02/2024): Bilateral; L>R Uterine fibroid 08/26/2008 Stroke ([facility] V24, [facility] V28) 08/13/2008 Overview (09/02/2024): Left Cerebellar; 07/16; LV thrombus Myocardial infarct ([facility] V24, [facility] V28) Overview (09/02/2024): Inferior; Left Ventricular Thrombus;07/16; [place] Type II or unspecified type diabetes mellitus with ophthalmic manifestations, 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) ([facility] V[facility], [facility] V28) 06/23/2007 Iron deficiency anemia 12/26/2005 Encounters Date Type Department Care Team Description 02/19/2025 10:00 AM EDT Office Visit Endocrinology [address] [address] Maria E Ferrer PA Type II or unspecified type diabetes mellitus with ophthalmic manifestations, 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) ([facility] V[facility], [facility] V28) (Primary Dx); Stage 4 chronic kidney disease ([facility] V[facility], [facility] V28); Hyperparathyroidism ([facility] V[facility]) from Last 3 Months Immunizations Name Administration [...] treatment Myocardial infarct ([facility], [facility] V28) 08/13/2008 DX:Myocardial infarct ([facility]); COMMENT: Inferior; 07/16; [place] Stroke ([facility] V[facility], [facility] V28) 08/13/2008 DX:Stroke ([facility]); COMMENT: Left Cerebellar Tumors of body of [...] 07/21/2010 DX:Other and unspecified hyperlipidemia Diabetic neuropathy ([facility] V[facility], [facility] V28) 03/25/2011 DX:Diabetic neuropathy ([facility]) Family History Medical History Relation [...] 02/19/2025 10:30 AM EDT Plan of Treatment Upcoming Encounters Date Type Department Care Team (Late st Contact Info) Description 07/09/2025 9:00 AM EDT Office Visit Endocrinology - [facility] [address] [place] [address] Gris Robles MD [address] [place] [address] Health Maintenance Due Date Last Done Comments [...] 09/11/2022 03/25/2011 Colorectal Cancer Screening: Colonoscopy 09/11/2022 Lung Cancer Screening (Low Dose CT) 09/11/2022 Social Influencers of Health Screening 09/11/2022 Diabetes: Annual Urine Albumin-Creatinine Ratio (uACR) 09/24/2022 03/25/2011 Diabetes: Annual GFR (Glomerular Filtration Rate) 06/30/2024 06/30/2023, 03/25/2011 Depression Screening 10/09/2024 Hypertension/CHF/CAD Annual BMP Blood Test 10/29/2024 06/30/2023, 03/25/2011 Influenza Vaccine (#1) 2025 , 07/12/2023, 08/31/2022, Additional history exists Diabetes: Blood Sugar Control Test (HGBA1C) 07/24/2025 01/22/2025, 03/25/2011 DTaP,Tdap,and Td Vaccines (4 - Td or Tdap) 04/07/2027 04/07/2017, 02/29/2012, 12/04/2009 HIV Screening Completed 01/13/2010 Hepatitis C Screening Completed 01/13/2010 MMR Vaccines Aged Out 05/31/2024 No longer eligi ble based on patient's age to complete this topic Hepatitis B Vaccines Completed 12/12/2024, 07/23/2024, 06/11/2024 [...] type diabetes mellitus with ophthalmic manifestations, 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) ([facility] V24, [facility] V28) URINE ALBUMIN CREATININE RATIO Routine 03/25/2011 ANNUAL BMP BLOOD TEST Routine 03/25/2011 LIPID PANEL Routine 03/25/2011 HEPATITIS C SCREENING Routine 01/13/2010 HIV SCREENING Routine 01/13/2010 PAP SMEAR Routine 01/13/2010 from Last 3 Months or Most Recently Relevant to Health Maintenance Results * (ABNORMAL) Hemoglobin A1c (01/22/2025 9:42 AM EDT) Hemoglobin A1C 8.8(H) <6.5 % LAB CHEMISTRY METHOD 01/22/2025 2:08 PM EDT [facility] Mean Bld Glu Estim. 206 mg/dL LAB CHEMISTRY METHOD 01/22/2025 2:08 PM EDT [facility] Blood Venous blood specimen / Unknown Venipuncture / Unknown 01/22/2025 9:42 AM EDT 01/22/2025 9:42 AM EDT Result [facility] Maria E BARRON LAB BLOOD ORDERABLES Final Resul t [facility] [address] [place] [address], [place] [phone] * Urine Albumin Creatinine Ratio (03/25/2011) [facility] Urine Albumin Creatinine Ratio Abstracted Result [facility] Provider HEALTH MAINTENANCE Final Result * Annual BMP Blood Test (03/25/2011) [facility] Annual BMP Blood Test Abstracted Result [facility] Provider HEALTH MAINTENANCE Final Result * (ABNORMAL) Lipid panel (03/25/2011) [facility] LDL/HDL Ratio 6(A) 0 - 4 Triglycerides 162(A) 0 - 150 mg/dL Cholesterol 254(A) 0 - 200 mg/dL HDL 45 >=40 mg/dL LDL Cholesterol 177(A) 0 - 100 mg/dL Blood Venous blood specimen / Unknown Result [facility] Provider LAB BLOOD ORDERABLES Cassie l Result * HIV Screening (01/13/2010) [facility] HIV Screening Abstracted Result [facility] Provider HEALTH MAINTENANCE Final Result * Hepatitis C Screening (01/13/2010) [facility] Hepatitis C Screening Abstracted Result [facility] Provider HEALTH MAINTENANCE Final Result * Pap Smear (01/13/2010) [facility] Pap smear Abstracted ,Negative Result [facility] Provider HEALTH MAINTENANCE Final Result from Last 3 Months or Most Recently Relevant to Health Maintenance Insurance [facility] [employer] Care Teams Pan Greaser Relationship Specialty Start Date End Date Alfredo Sanders MD [address] [place] [address] [address] [facility] [place] [address] PCP - General Internal Medicine 04/01/19
== END 2025-05-21 10:47 | disposition home or self-care (01) ==
LOC: HO.HGI 09:03
PROVIDERS: PCP Internal Medicine; Visit Provider Nurse Practitioner
DX: M54.6 Pain in thoracic spine (principal); K21.9 Gastro-esophageal reflux disease without esophagitis; N18.4 Chronic kidney disease, stage 4 (severe)
CPT/HCPCS: 99214

== ENCOUNTER 2025-05-21 09:02 | Outpatient (REF) | payer OTHER, SELFPAY ==
--- NOTE | ~2025-05-21 | XR_ITS ---
CLINICAL HISTORY: M25.561 - Pain in right knee Two views of each knee Comparison: None provided Findings: Bones intact. No dislocations. No significant arthritic change or erosions. No joint effusion. No radiopaque foreign body. IMPRESSION: 1. No acute findings. 2. No significant degenerative change bilaterally. This document has been electronically signed by: Rd Singh MD on 05/22/2025 10:10:46
--- NOTE | ~2025-05-21 | XR_ITS ---
CLINICAL HISTORY: M54.6 - Pain in thoracic spine Thoracic spine three views Comparison: None provided Findings: No acute fracture or dislocation. Posterior alignment is normal. No significant degenerative change. No radiopaque foreign bodies. Impression: No acute processes This document has been electronically signed by: Apollo Cheek MD on 05/27/2025 20:04:30
--- NOTE | ~2025-05-21 | XR_ITS ---
CLINICAL HISTORY: M77.12 - Lateral epicondylitis, left elbow 5 view left shoulder Comparison: None provided Findings: Bones intact. No dislocations. Faint calcification seen along the distal supraspinatus tendon on the axillary view. No erosions. No radiopaque foreign body. IMPRESSION: 1. No acute findings 2. Probable mild calcific tendinosis. This document has been electronically signed by: Rd Singh MD on 05/22/2025 09:43:20
== END 2025-05-21 09:03 | disposition home or self-care (01) ==
LOC: HO.XRAY 09:02
PROVIDERS: PCP Internal Medicine; Visit Provider Nurse Practitioner
DX: K59.01 Slow transit constipation (principal); M77.12 Lateral epicondylitis, left elbow; K21.9 Gastro-esophageal reflux disease without esophagitis; R10.31 Right lower quadrant pain; M54.6 Pain in thoracic spine; I12.9 Hypertensive chronic kidney disease with stage 1 through stage 4 chronic kidney disease, or unspecified chronic kidney disease; N18.4 Chronic kidney disease, stage 4 (severe); E11.43 Type 2 diabetes mellitus with diabetic autonomic (poly)neuropathy; E11.22 Type 2 diabetes mellitus with diabetic chronic kidney disease
CPT/HCPCS: 72070; 73030; 73560; 99212

== ENCOUNTER → 2025-05-21 11:00 | Outpatient (BNV) | payer OTHER, SELFPAY | PROVIDERS: PCP Internal Medicine; Visit Provider Radiology Vascular & Interventional Radiology | DX: M77.12 Lateral epicondylitis, left elbow (principal); M25.561 Pain in right knee; M25.562 Pain in left knee | CPT/HCPCS: 73030; 73560 ==

== ENCOUNTER 2025-07-08 11:08 | Outpatient (AMB) | payer OTHER, SELFPAY ==
--- NOTE | 2025-07-08 11:16 | HO.NEPHOV ---
Vital Signs 07/08/25 11:17 Height 5 ft 6 in Weight 206 lb BMI 33.2 BP 138/76 Blood Pressure Location Rt brachial Position Sitting Pulse 81 Pulse Source Pulse Oximeter Pulse Oximetry (%) 99 Oxygen Delivery Method Room Air Intake Visit Reasons: 2mon follow-up w/labs Intern Brand Required: No Accompanied by: Self / Same As Patient Allergies cephalexin (From KEFLEX) Allergy (Intermediate, Verified 07/08/25 11:17) HIVES Medication List - Last Reconciled 07/08/25 by Ramin Johnston MD alcohol swabs 1 pad topical TID 90 days amlodipine 10 mg PO DAILY apixaban (Eliquis) 5 mg PO BID aspirin 81 mg PO DAILY bisacodyl (Dulcolax (bisacodyl)) 10 mg (2 x 5 mg) PO BEDTIME 90 days blood pressure monitor (Blood Pressure Kit) As directed blood sugar diagnostic (FreeStyle Lite Strips) 4 times a day dapagliflozin propanediol (Farxiga) 10 mg PO DAILY ezetimibe 10 mg PO DAILY fexofenadine 180 mg PO DAILY flash glucose scanning reader (Spinal IntegrationStyle Patrick 14 Day [place]) As directed flash glucose sensor (FreeStyle Patrick 14 Day Sensor kit) every 14 days FreeStyle Lite Meter (blood-glucose meter) 4 times a day NS glucose (Dex4 Glucose) 12 grams (3 x 4 gram) PO Q15M PRN hydrocortisone 1% 1 appl HI DAILY PRN insulin glargine U-300 conc (Toujeo Max U-300 SoloStar) 64 units (0.2133 mL) subcut DAILY 30 days insulin lispro 10-24 units20 units before meals (16 units light meals), + 2u for bg over 200, +4 unit bg >250, 10 u with snack. subcutaneously use as directed; 30 days lancets As directed 3x/day lansoprazole 15 mg PO DAILY 30 days latanoprost 0.005% 1 drp ophthalmic (eye) BEDTIME losartan 50 mg PO DAILY metoclopramide HCl (Reglan) 5 mg PO QIDACHS metoprolol succinate ER 200 mg PO DAILY mirtazapine 15 mg PO BEDTIME pen needle, diabetic 5 times a day rosuvastatin 20 mg PO BEDTIME tramadol 50 mg PO Q6H PRN 30 days HPI Comments Details: Jaclyn is a middle-aged woman with a history of longstanding diabetes mellitus complicated by CKD. She has stage IV CKD. Serum creatinine has been stable for the last several months. She is here for regular follow-up. She has history of recurrent hyperkalemia, this has been controlled since reducing losartan dose, she currently takes 50mg daily and is tolerating well. she reports some lower extremity swelling she states she has been eating canned soups with salt, though does make an effort to avoid salt with other meals and does a lot of cooking herself she notes some orthopnea at night, props herself up with her adjustable bed and manages well with this. She denies exertional dyspnea. she is drinking lots of fluids to stay well hydrated she states she has been more fatigued over the last several months she notes leg cramping that has worsened She was seen by general surgery for management of hypercalcemia and enlarged parathyroid gland on recent imaging. per surgery, given unclear if multiple hyperplasia or parathyroid source of hypercalcemia, she has been referred for formal endocrine evaluation, she is awaiting this appointment. she has been referred for transplant evaluation. She has also seen the dialysis educator. Pt is leaning toward HD rather than home dialysis should she need it. 08/20/24 ;Doing ok. Evaluated by Transplant 10/14/23; c/o low back pain - bilateral ; No urinary symptoms 12/09/24;Still with back pain;Para Thryoid surgery was postponed 02/11/25 Underwent salpingooophorectomy- recovered well Parathyroid surgery oh hold- next visit in few weeks 04/08/25 The patient is a 54-year-old female presenting with advanced kidney disease management. Her kidney function has remained stable, and she reports no significant changes in her condition. The patient has a history of hypertension, with current blood pressure readings at 138/78 mmHg, indicating controlled levels. She is currently taking Eliquis, which was recently reintroduced by Dr. Mohaumd. The patient reports experiencing dizziness, which may be related to dehydration, as she has been feeling dehydrated more frequently. She denies taking diuretics and has been advised to increase fluid intake, especially in hot weather. The patient has a history of hypercalcemia, which is being monitored, and she is scheduled to see a specialist on the . The elevated calcium levels are related to her kidney condition, and surgical intervention may be considered if necessary. The patient also has a history of diabetes mellitus, with recent concerns about elevated HbA1c levels. She acknowledges dietary indiscretions, which may have contributed to the increase in her blood sugar levels. Peripheral artery disease is also a concern, with previous consultations with a vascular surgeon indicating potential arterial blockages. The patient underwent a procedure in January, and while some discomfort persists, it is expected to improve over time. 07/08/25 - The patient is a 55-year-old female presenting with chronic kidney disease. -\ s/p Parathyroidectomy Ca being monitored by [facility] - Intermittent leg edema noted. - Blood pressure improved to 138/76 mmHg. - Hyperglycemia despite dietary changes. - Frequent muscle cramps in legs and toes. [facility] Medical History Gastroparesis Colon cancer screening Coronary artery dissection Type 2 diabetes mellitus with hyperglycemia Skin tag Atherosclerotic cardiovascular disease Calcific tendinitis of right shoulder Adhesive capsulitis of right shoulder Back pain Upper respiratory infection Arm pain Dizziness Type 2 diabetes mellitus with unspecified complications Dyspnea on exertion SOB (shortness of breath) Headache On anticoagulant therapy Hidradenitis suppurativa Pulmonary embolism Type 2 diabetes mellitus with chronic kidney disease Precordial chest pain Vitamin D deficiency HTN (hypertension) On beta jacqueline at home Axillary hidradenitis suppurativa Proliferative diabetic retinopathy associated with type 2 diabetes mellitus Diabetic polyneuropathy associated with type 2 diabetes mellitus Diabetic nephropathy associated with type 2 diabetes mellitus senior care (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 pylori infection Anxiety and depression Acute angle-closure glaucoma CVA (cerebral vascular accident) GERD (gastroesophageal reflux disease) Hypertension Coronary artery disease Hypercholesterolemia Obesity (BMI 30-39.9) Surgical History S/P removal of left ovary (~01/2025) Status post hysterectomy with oophorectomy History of hysterectomy History of surgery (03/21/23) Hx of excision of mass History of axillary surgery History of axillary surgery (08/21/20) History of esophagogastroduodenoscopy (EGD) History of angioplasty History of cardiac catheterization (~03/30/16) History of endometrial ablation Amputation of right index finger History of tubal ligation Family History Mother Type 2 diabetes mellitus Hypertension Maternal Grandmother Myocardial infarction Paternal Grandmother History of breast cancer Social History Household Members: None Housing: Apartment Are you a primary plant care worker to a significant other at home: No Do you presently have visiting nurse or other home services: No Alcohol intake: never Comment: medicated, see MAR Patient Tobacco Use Status: Former Tobacco user Tobacco use type: Cigarette e-Cigarette/Vaping Use: Never Used Second Hand Smoke Exposure: Yes Substance Use Type: Marijuana service: No Current occupational status: unemployed Cognitive needs: No Hearing needs: Yes (partially deaf ) Vision needs: Yes Physical Exam Vital Signs: Last Vital Signs Pulse 81 07/08/25 11:17 BP 138/76 07/08/25 11:17 Pulse Ox 99 07/08/25 11:17 Oxygen Delivery Method Room Air 07/08/25 11:17 BMI result Body Mass Index 33.2 Comfortable Neck supple no JVD. Lungs entry equal no rales. Heart S1-S2 heard no gallop or rub. Abdomen soft nontender. Neuro alert awake oriented. No asterixis. Extremities Trace edema. Results Reviewed Nephrology Results: Hgb, (12.0-16.0) 13.8 g/dl 03/31/25 WBC, (4.8-10.8) 8.2 X10*3/uL 03/31/25 Plt Count, (160-400) 280 X10*3/uL 03/31/25 Sodium, (135-145) 139 mmol/L 03/31/25 Potassium, (3.3-5.1) 4.0 mmol/L 03/31/25 Chloride, (96-108) 112 mmol/L H 03/31/25 Carbon Dioxide, (22-29) 19 mmol/L L 03/31/25 BUN, (9-16) 48 mg/dL H 03/31/25 Creatinine, (0.5-1.4) 3.33 mg/dL H 03/31/25 Calcium, (8.4-10.2) 10.9 mg/dL H 03/31/25 PTH Intact, (8.7-77.1) 829.7 pg/mL H 03/31/25 Renal US 01/31/22 Assessment & Plan Assessment & Plan (1) Chronic kidney disease, stage 4 (severe): Code(s): N18.4 - Chronic kidney disease, stage 4 (severe) Category: Medical (2) Hyperparathyroidism: Code(s): E21.3 - Hyperparathyroidism, unspecified Category: Surgical (3) Essential hypertension: Code(s): I10 - Essential (primary) hypertension Category: Medical (4) Diabetic nephropathy associated with type 2 diabetes mellitus: Code(s): E11.21 - Type 2 diabetes mellitus with diabetic nephropathy Category: Medical (5) Type 2 diabetes mellitus with chronic kidney disease: Code(s): E11.22 - Type 2 diabetes mellitus with diabetic chronic kidney disease Category: Medical Qualifiers: Diabetes mellitus mcfp insulin use: without longshore equipment operator use Chronic kidney disease stage: stage 3 (moderate) Chronic kidney disease stage 3 subtype: unspecified whether 3a or 3b Qualified Code(s): E11.22 - Type 2 diabetes mellitus with diabetic chronic kidney disease; N18.30 - Chronic kidney disease, stage 3 unspecified Plan Jaclny has stage IV CKD due to underlying diabetic nephropathy. Renal function is at baseline/stable. Goal is to slow the progression of renal disease. Continue to avoid nephrotoxic agents including NSAIDs. Encouraged her to stay on low-sodium diet. Hemoglobin A1c should be maintained less than 7%. Blood pressure -acceptable. We discussed importance of weight loss as well. She has no evidence of anemia. Hemoglobin was 15.7 in April. s/p parathyroidectomy- preemptive renal transplant evaluation. -not a candidate Pelvic MRI ordered due to pelvic mass Enhancing spiculated mass in the central pelvis measuring 3.2 x 3.0 x 2.6 cm which could represent a metastatic deposit. Correlation with oncologic history is recommended. CT of the chest, abdomen, and pelvis should be considered. s/p [place] oophorectomy She has seen a dialysis nurse educator and leaning toward intermittent HD vs home PD, but will continue to consider. Orders: Orders Complete Blood Count Auto Diff 4 Weeks N18.4 - Chronic kidney disease, stage 4 (severe) Basic Metabolic Panel 4 Weeks N18.4 - Chronic kidney disease, stage 4 (severe) Coding Level of Care Code Est Pt Level 4 (10619) Diagnoses Chronic kidney disease, stage 4 (severe) N18.4 Hyperparathyroidism E21.3 Essential hypertension I10 Diabetic nephropathy associated with type 2 diabetes mellitus E11.21 Type 2 diabetes mellitus with stage 3 chronic kidney disease, without long-term current use of insulin, unspecified whether stage 3a or 3b CKD E11.22; N18.30 Diabetes mellitus mcfp insulin use: without longshore equipment operator use Chronic kidney disease stage: stage 3 (moderate) Chronic kidney disease stage 3 subtype: unspecified whether 3a or 3b
[2025-07-08 11:17] VITALS: BP 138/76; PULSE 81; O2SAT 99; BMI 33.2
--- OUTSIDE RECORDS SUMMARY | 2025-07-08 12:36 | XMS_ITS | Clinical Summary ---
Author Organization [employer] Address [address] [facility] [address] [place] [address] Care Team Providers Care Prop Maker Name Role Phone Unavailable Primary Care Provider [...] Department Care Team Description 05/12/2025 Outside Procedure [facility] [address] [place] [address] Kelvin Tavarezn, OD Presbyopia (Primary Dx) 05/07/2025 2:15 PM EDT Office Visit [facility] [address] [place] [id number] Kelvin Tavarezn, OD Regular astigmatism of both [...] 02/29/2012 Zoster Vaccines (1 of 2) 2019 Dental Oral Exam 08/22/2024 02/19/2024, , 06/26/2019, Additional history exists Tobacco Screening 02/18/2025 02/19/2024 COVID-19 Vaccine ( - season) 2025 09/28/2021, 08/30/2021 Influenza Vaccine (#1) 2025 , 07/12/2023, 08/31/2022, [...] Most Recently Relevant to Health Maintenance Insurance [facility]
--- OUTSIDE RECORDS SUMMARY | 2025-07-08 12:36 | XMS_ITS | Clinical Summary ---
Author Organization [facility] Address [address] [place] [address] Care Team Providers Care Golf Starter And Ranger Name Role Phone Unavailable Primary Care Provider [...] Date Diagnosed Date PAD (peripheral artery disease) 03/20/2016 Overview (03/20/2016): With ulcer of right foot- Followed [facility] Essential hypertension 03/08/2016 Diabetes mellitus [...] Plan of Treatment [place] on file [place]
--- OUTSIDE RECORDS SUMMARY | 2025-07-08 12:36 | XMS_ITS | Clinical Summary ---
Author Organization [facility] Address [address] [place] [address] Phone Care Team Providers Care Housing Inspectors Name Role Phone Alfredo Sanders MD Primary Care Provider [phone] Allergies Active Allergy Reactions Criticality Noted Date [...] Only [facility] [address] [phone] Provider, Aps External from Last 3 Months [...] Generation wRfx Non Reactive Non Reactive [facility] [place] [phone] Comment: HIV-1/HIV-2 antibodies and HIV-1 p24 antigen were NOT detected. There is no laboratory evidence of HIV infection. HIV Negative 04/07/2025 12:1 9 PM EDT 04/07/2025 [facility] External Provider LAB BLOOD ORDERABLES Final Result [facility] [place] [address] [place] [address] * T PALLIDUM SCREENING CASCADE (04/07/2025 12:19 PM EDT) Pathologist [facility] Emergency Department T pallidum Antibodies (TP-PA) Non Reactive Non Reactive [facility] [place] [phone] Interpretation Comment [facility] [place] [phone] Comment: Syphilis: Treponemal Antibodies with Reflex to [...] syphilis. 04/07/2025 12:1 9 PM EDT 04/07/2025 [facility] External Provider LAB BLOOD ORDERABLES Final Result [employer] [address], [address] [place] [address] * (ABNORMAL) Manohar-Oliver virus VCA antibody panel (04/07/2025 12:19 PM EDT) Pathologist [facility] Emergency Department EBV Antibody to Viral Capsid Antigen IgM <36.0 0.0 - 35.9 U/mL [employer] Comment: Negative <36.0 Equivocal 36.0 - 43.9 Positive >43.9 EBV VIRAL CAPSID AG (VCA) AB (IGG) 351.0(H) 0.0 - 17.9 U/mL [employer] Comment: Negative <18.0 Equivocal 18.0 - 21.9 Positive >21.9 EBV NUCLEAR AG (EBNA) IgG 99.4(H) 0.0 - 17.9 U/mL [employer] Comment: Negative <18.0 Equivocal 18.0 - 21.9 Positive >21.9 Interpretation: Comment [facility] Jax Comment: EBV Interpretation Chart Pedraza: Antibody [...] 04/07/2025 12:1 9 PM EDT 04/07/2025 Narrative [facility] - 04/09/2025 8:06 AM EDT Specimen Comment: A duplicate report has been generated due to demographic updates. [facility] External Provider LAB BLOOD ORDERABLES Final Result Performing Organization Address City/[facility]/ZIP Co de Phone Number [facility] [address], [address] [place] [address] * Rubella antibody, IgG (04/07/2025 12:19 PM EDT) [facility] Rubella IgG Quant 1.95 Immune >0.99 index [facility] Comment: Non-immune <0.90 Equivocal 0.90 - 0.99 Immune >0.99 04/07/2025 12:1 9 PM EDT 04/07/2025 [facility] External Provider LAB BLOOD ORDERABLES Final Result [facility] [place] [address], [address] [place] [address] * (ABNORMAL) Cytomegalovirus antibody, IgG (04/07/2025 12:19 PM EDT) Pathologist [facility] Emergency Department CMV IgG >10.00(H) 0.00 - 0.59 U/mL [facility] [place] Comment: Negative <0.60 Equivocal 0.60 - 0.69 Positive >0.69 04/07/2025 12:1 9 PM EDT 04/07/2025 [facility] External Provider LAB BLOOD ORDERABLES Final Result [facility] [place] [address] [place] [address] * Varicella zoster antibody, IgG (04/07/2025 12:19 PM EDT) Pathologist [facility] Emergency Department Varicella IgG Reactive Non Reactive [facility] Comment: Please note reference interval change A Reactive result is considered evidence of immunity to VZV. Reactive indicates that VZV IgG was detected consistent with previous infection and/or vaccination. A Non Reactive result indicates that VZV IgG was not detected suggesting that immunity has not been acquired. 04/07/2025 12:1 9 PM EDT 04/07/2025 [facility] External Provider LAB BLOOD ORDERABLES Final Result Performing Organization Address City/[facility] Co de Phone Number [facility] [employer] [address], [address] [place] [address] from Last 3 Months Insurance [facility] [place] [address] [facility] Medicaid Care Teams Housing Inspectors Relationship Specialty Start Date End Date Alfredo Sanders MD [facility] [address] [place], [place] PCP - General 10/19/20
--- OUTSIDE RECORDS SUMMARY | 2025-07-08 12:36 | XMS_ITS | Patient Health Record ---
Author Organization [facility] Address [address] [place] [address] Support Name Relationship Address Phone Phoebe Ruelas Guarantor Unknown Unavailable Reason For Referral No Information Medications Medication SIG (Take, Route, Frequency, Duration) Notes Start Date End Date Status ALPRAZolam 1 MG take 1 tablet by ora l route 3 times every day Oral (Carlos-) Active OneTouch Ultra Test apply by [facility].(Non-D rug; Combo Route) route In Vitro (Carlos-) [...] End Date LYLA King [address] [place], [place] [id number] [id number] Phoebe Ruelas Self - patient is the insured DENTAL Medicaid [place] [address] [place] [phone] [id number] Phoebe Ruelas Self - patient is the insured
--- OUTSIDE RECORDS SUMMARY | 2025-07-08 12:36 | XMS_ITS | Clinical Summary ---
Author Organization [address] 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, not stated as uncontrolled(250.41) ([facility] V24, [facility] V28) 09/02/2014 Secondary diabetes mellitus with neurological manifestations, 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) ([facility] V24, [facility] V28) 09/02/2014 Diabetic neuropathy ([place] [id number], [facility] V28) 0 03/25/2011 Hyperlipidemia 07/21/2010 Carpal tunnel syndrome 11/24/2008 Overview (09/02/2024): Bilateral; L>R Uterine fibroid 08/26/2008 Stroke ([facility] V24, [facility] V28) 08/13/2008 Overview (09/02/2024): Left Cerebellar; 07/16; LV thrombus Myocardial infarct ([facility] V24, [facility] V28) Overview (09/02/2024): Inferior; Left Ventricular Thrombus;07/16; [place] Type II or unspecified type diabetes mellitus with ophthalmic manifestations, 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) ([facility] V24, [facility] V28) 06/23/2007 Iron deficiency anemia 12/26/2005 Immunizations Immunization Administration [...] 07/29/2008 DX :Non-compliance with treatment Myocardial infarct ([facility] V24, [facility] V28) 08/13/2008 DX:Myocardial infarct (HCC); COMMENT: Inferior; 07/16; [place] Stroke ([facility] V24, [facility] V28) 08/13/2008 DX:Stroke ([facility]); COMMENT: Left Cerebellar Tumors of body [...] 07/21/2010 DX:Other and unspecified hyperlipidemia Diabetic neuropathy ([facility] V24, [facility] V28) 03/25/2011 DX:Diabetic neuropathy (HCC) Family History Medical History Relation Name Comments [...] Care Team (Late st Contact Info) Description 07/15/2025 9:30 AM EDT Office Visit Endocrinology - [place] [address] [place] [address] Maria E Ferrer PA [address] [place] [address] Health Maintenance Due Date Last Done Comments Breast Cancer Screening 1969 Colorectal Cancer Screening: Colonoscopy 1969 Diabetes: Annual Foot Exam 1979 Diabetes: Annual Retina Eye Exam 1979 Zoster Vaccines (1 of 2) 1988 Cervical Cancer Screening: Pap Smear 01/13/2013 01/13/2010 Pneumococcal Vaccine: 50+ Years (2 of 2 - PCV) 12/26/2018 12/26/2017, 02/29/2012 COVID-19 Vaccine (3 - Moderna risk series) 10/26/2021 09/28/2021, 08/30/2021 Cholesterol Screening (Lipid Panel) 09/11/2022 03/25/2011 Lung Cancer Screening (Low Dose CT) 09/11/2022 [...] or Tdap) 04/07/2027 04/07/2017, 02/29/2012, 12/04/2009 RSV Immunization Adult Patients (1 - 1-dose 75+ series) 2044 HIV Screening Completed 01/13/2010 Hepatitis C Screening [...] type diabetes mellitus with ophthalmic manifestations, 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) ([facility] V24, [facility] V28) URINE ALBUMIN CREATININE RATIO Routine 03/25/2011 ANNUAL BMP BLOOD TEST Routine 03/25/2011 LIPID PANEL Routine 03/25/2011 HEPATITIS C SCREENING Routine 01/13/2010 HIV SCREENING Routine 01/13/2010 PAP SMEAR Routine 01/13/2010 from Last 3 Months or Most Recently Relevant to Health Maintenance Results * (ABNORMAL) Hemoglobin A1c (01/22/2025 9:42 AM EDT) Hemoglobin A1C 8.8(H) <6.5 % LAB CHEMISTRY METHOD 01/22/2025 2:08 PM EDT [facility] Mean Bld Glu Estim. 206 mg/dL LAB CHEMISTRY METHOD 01/22/2025 2:08 PM EDT [facility] Blood Venous blood specimen / Unknown Venipuncture / Unknown 01/22/2025 9:42 AM EDT 01/22/2025 9:42 AM EDT us Maria E BARRON LAB BLOOD ORDERABLES Final Resul t [facility] ([facility]) [facility] [address] [place] [address], [place] [phone] * Urine Albumin Creatinine Ratio (03/25/2011) [facility] Urine Albumin Creatinine Ratio Abstracted [facility] Provider HEALTH MAINTENANCE Final Result * Annual BMP Blood Test (03/25/2011) [facility] Annual BMP Blood Test Abstracted [facility] Provider HEALTH MAINTENANCE Final Result * (ABNORMAL) Lipid panel (03/25/2011) [facility] LDL/HDL Ratio 6(A) 0 - 4 Triglycerides 162(A) 0 - 150 mg/dL Cholesterol 254(A) 0 - 200 mg/dL HDL 45 >=40 mg/dL LDL Cholesterol 177(A) 0 - 100 mg/dL Blood Venous blood specimen / Unknown Result [facility] Provider LAB BLOOD ORDERABLES Cassie l Result * HIV Screening (01/13/2010) [facility] HIV Screening Abstracted Result [facility] Provider HEALTH MAINTENANCE Final Result * Hepatitis C Screening (01/13/2010) [facility] Hepatitis C Screening Abstracted Result [facility] Provider HEALTH MAINTENANCE Final Result * Pap Smear (01/13/2010) [facility] Pap smear Abstracted ,Negative Result [facility] Provider HEALTH MAINTENANCE Final Result from Last 3 Months or Most Recently Relevant to Health Maintenance Insurance [facility] [place] [address] Care Teams Magnetic Prospector Relationship Specialty Start Date End Date Alfredo Sanders MD [address] [place] [address] [address] [facility] [place] [address] PCP - General Internal Medicine 04/01/19
== END 2025-07-08 11:42 | disposition home or self-care (01) ==
LOC: HO.HKA 11:09
PROVIDERS: PCP Internal Medicine; Visit Provider Internal Medicine Hypertension Specialist
DX: N18.4 Chronic kidney disease, stage 4 (severe) (principal); E21.3 Hyperparathyroidism, unspecified; I12.9 Hypertensive chronic kidney disease with stage 1 through stage 4 chronic kidney disease, or unspecified chronic kidney disease; E11.21 Type 2 diabetes mellitus with diabetic nephropathy; E11.22 Type 2 diabetes mellitus with diabetic chronic kidney disease; N18.30 Chronic kidney disease, stage 3 unspecified
CPT/HCPCS: 99214

== ENCOUNTER → 2025-07-08 11:08 | Outpatient (BNVA) | payer OTHER, SELFPAY | PROVIDERS: PCP Internal Medicine; Visit Provider Internal Medicine Hypertension Specialist | DX: N18.4 Chronic kidney disease, stage 4 (severe) (principal); E21.3 Hyperparathyroidism, unspecified; I10 Essential (primary) hypertension; E11.21 Type 2 diabetes mellitus with diabetic nephropathy; E11.22 Type 2 diabetes mellitus with diabetic chronic kidney disease | CPT/HCPCS: 99212 ==

== ENCOUNTER 2025-08-15 08:22 | Outpatient (REF) | payer OTHER, SELFPAY ==
[2025-08-15 08:40] LABS: MANUAL DIFF FLAG NO
--- OUTSIDE RECORDS SUMMARY | 2025-08-15 08:53 | XMS_ITS | Clinical Summary ---
Author Organization 175 [facility] Address [address] [place] [address] Phone Care Team Providers Care Guitar Teacher Name Role Phone Alfredo Sanders MD Primary Care Provider [phone] Allergies Active Allergy Reactions Criticality Noted Date [...] mg EC tablet 1 TABLET DAILY Active pen needle, diabetic 32 gauge x 532 [...] up to 4 times daily for insulin 11/10/20 11 Active metoprolol succinate (TOPROL-XL) 200 mg [...] total) by mouth at bedtime as needed. 01/08/20 25 Active sertraline (ZOLOFT) 25 mg [...] day. 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 1 each 01/23/20 25 Active insulin lispro (HumaLOG KwikPen Insulin) 100 unit/mL injection pen Use three times a day before meals: <70 units, 71-100: 5 units, 101-150: 10 units, 151-200: 15 units, 201-250: 20 units, 251-300: 25 units, 301-350: 28 units, 351-400: 30 units, >400: use 32 units. Plus 3 units for heavier meals 02/20/20 25 Active insulin glargine U-300 conc (TOUJEO MAX SoloStar) 300 unit/mL (3 mL) CONCENTRATED injection pen Use 72 units at bedtime 07/15/20 25 Active insulin glargine U-300 conc (Toujeo Max U-300 SoloStar) 300 unit/mL (3 mL) CONCENTRATED injection pen Inject 64-68 Units under the skin at bedtime. 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 6 each 1 01/23/20 25 025 Discontinued Active Problems Problem Noted Date Diagnosed Date History of parathyroidectomy 07/15/2025 Hyperparathyroidism ([facility] V24) 01/22/2025 Primary hypertension 01/22/2025 Stage 4 chronic kidney disease ([facility] V24, 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) ([facility] V24, [facility] V28) 09/02/2014 Diabetic neuropathy ([facility] V24, [facility] V28) 0 03/25/2011 Hyperlipidemia 07/21/2010 Carpal tunnel syndrome 11/24/2008 Overview (09/02/2024): Bilateral; L>R Uterine fibroid 08/26/2008 Stroke ([facility] V24, [facility] V28) 08/13/2008 Overview (09/02/2024): Left Cerebellar; 07/16; LV thrombus Myocardial infarct ([facility] V24, [facility] V28) Overview (09/02/2024): Inferior; Left Ventricular Thrombus;07/16; [place] Type II or unspecified type diabetes mellitus with ophthalmic manifestations, 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) ([facility] V24, [facility] V28) 06/23/2007 Iron deficiency anemia 12/26/2005 Encounters Date Type Department Care Team Description 07/15/2025 9:30 AM EDT Office Visit Endocrinology [address] [address] Maria E Ferrer PA Type II or unspecified type diabetes mellitus with ophthalmic manifestations, 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) ([facility] V24, [facility] V28) (Primary Dx); Stage 4 chronic kidney disease ([facility] V24, [facility] V28); Primary hypertension; Hyperlipidemia, unspecified hyperlipidemia type; History of parathyroidectomy from Last 3 Months Immunizations Immunization Administration [...] 07/29/2008 DX :Non-compliance with treatment Myocardial infarct ([facility] V24, [facility] V28) 08/13/2008 DX:Myocardial infarct ([facility]); COMMENT: Inferior; 07/16; [place] Stroke ([facility] V24, [facility] V28) 08/13/2008 DX:Stroke ([facility]); COMMENT: Left Cerebellar Tumors of body of [...] 07/21/2010 DX:Other and unspecified hyperlipidemia Diabetic neuropathy ([facility] V24, [facility] V28) 03/25/2011 DX:Diabetic neuropathy ([facility]) Family History Medical History Relation Name Comments [...] Sign Reading Time Taken Comments Blood Pressure 146/86 07/15/2025 9:47 AM EDT Pulse 67 07/15/2025 9:47 AM EDT Temperature 36.2 C (97.2 F) 02/19/2025 10:30 AM EDT Respiratory Rate 15 07/15/2025 9:35 AM EDT Oxygen Saturation 95% 02/19/2025 10:30 AM EDT Inhaled Oxygen Concentration - - Weight 95.3 kg (210 lb) 07/15/2025 9:35 AM EDT Height 167.6 cm (5' 6 ) 07/15/2025 9:35 AM EDT Body Mass Index 33.89 07/15/2025 9:35 AM EDT Plan of Treatment Upcoming Encounters Date Type Department Care Team (Late st Contact Info) Description 10/15/2025 12:00 PM EST Office Visit Endocrinology - [place] [address] [place], [place] [phone] Maria E Ferrer PA [address] [place] [address] Health Maintenance Due Date Last Done Comments Breast Cancer Screening 1969 Colorectal Cancer Screening: Colonoscopy 1969 Diabetes: Annual Foot Exam 1979 Diabetes: Annual Retina Eye Exam 1979 Zoster Vaccines (1 of 2) 1988 Cervical Cancer Screening: Pap Smear 01/13/2013 01/13/2010 Pneumococcal Vaccine: 50+ Years (2 of 2 - PCV) 12/26/2018 12/26/2017, 02/29/2012 RSV Immunization Adult Patients (1 - Risk 50-74 years 1-dose series) 2019 COVID-19 Vaccine (3 - Moderna risk [...] type diabetes mellitus with ophthalmic manifestations, 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) ([facility] V24, [facility] V28) URINE ALBUMIN CREATININE RATIO Routine 03/25/2011 ANNUAL BMP BLOOD TEST Routine 03/25/2011 LIPID PANEL Routine 03/25/2011 HEPATITIS C SCREENING Routine 01/13/2010 HIV SCREENING Routine 01/13/2010 PAP SMEAR Routine 01/13/2010 from Last 3 Months or Most Recently Relevant to Health Maintenance Results * (ABNORMAL) Hemoglobin A1c (01/22/2025 9:42 AM EDT) [facility] Hemoglobin A1C 8.8(H) <6.5 % LAB CHEMISTRY METHOD 01/22/2025 2:08 PM EDT [facility] Mean Bld Glu Estim. 206 mg/dL LAB CHEMISTRY METHOD 01/22/2025 2:08 PM EDT [facility] Blood Venous blood specimen / Unknown Venipuncture / Unknown 01/22/2025 9:42 AM EDT 01/22/2025 9:42 AM EDT Maria E BARRON LAB BLOOD ORDERABLES Final Resul t [facility] [address] [place] [address], * Urine Albumin Creatinine Ratio (03/25/2011) [facility] Urine Albumin Creatinine Ratio Abstracted Historical Provider HEALTH MAINTENANCE Final Result * Annual BMP Blood Test (03/25/2011) [facility] Annual BMP Blood Test Abstracted Historical Provider HEALTH MAINTENANCE Final Result * (ABNORMAL) Lipid panel (03/25/2011) [facility] LDL/HDL Ratio 6(A) 0 - 4 Triglycerides 162(A) 0 - 150 mg/dL Cholesterol 254(A) 0 - 200 mg/dL HDL 45 >=40 mg/dL LDL Cholesterol 177(A) 0 - 100 mg/dL Blood Venous blood specimen / Unknown Historical Provider LAB BLOOD ORDERABLES Cassie l Result * HIV Screening (01/13/2010) HIV Screening Abstracted Historical Provider HEALTH MAINTENANCE Final Result * Hepatitis C Screening (01/13/2010) Hepatitis C Screening Abstracted Historical Provider HEALTH MAINTENANCE Final Result * Pap Smear (01/13/2010) Pap smear Abstracted ,Negative Historical Provider HEALTH MAINTENANCE Final Result from Last 3 Months or Most Recently Relevant to Health Maintenance Insurance [facility] Care Teams Guitar Teacher Relationship Specialty Start Date End Date Alfredo Sanders MD [address] [place] [address] [address] [facility] [place] [address] PCP - General Internal Medicine 04/01/19
--- OUTSIDE RECORDS SUMMARY | 2025-08-15 08:53 | XMS_ITS | Clinical Summary ---
Author Organization [facility] Address [address] [place] [address] Care Team Providers Care Ladies Suit Operator Name Role Phone Unavailable Primary Care [...] of right foot- Followed [facility] [place] Essential hypertension 03/08/2016 Diabetes mellitus [...] Plan of Treatment Not on file Insurance [place] MEDICAID
--- OUTSIDE RECORDS SUMMARY | 2025-08-15 08:53 | XMS_ITS | Clinical Summary ---
Author Organization [employer] Address [address] [facility] [address] [place] [address] Care Team Providers Care Precision Instrument And Tool Maker Name Role Phone Unavailable Primary Care Provider Unavailabl e Allergies Active Allergy Reactions Criticality Noted Date Comments Mitchphenzohra Hagan 02/19/2024 Medications aspirin 81 MG EC [...] exists Tobacco Screening 02/18/2025 02/19/2024 COVID-19 Vaccine (3 - season) 2025 09/28/2021, 08/30/2021 Influenza Vaccine [...] Most Recently Relevant to Health Maintenance Insurance [facility] STAND ADULT
--- OUTSIDE RECORDS SUMMARY | 2025-08-15 08:53 | XMS_ITS | Patient Health Record ---
Author Organization [facility] Address [address] [place] [address] Support Name Relationship Address Phone Phoebe Ruelas Guarantor Unknown Unavailable Reason For Referral No Information Medications Medication SIG (Take, Route, Frequency, Duration) Notes Start Date End Date Status ALPRAZolam 1 MG take 1 tablet by ora l route 3 times every day Oral (Carlos-) Active OneTouch Ultra Test apply by [facility].(Non-D rug; Combo Route) route In Vitro (Carlos-) [...] End Date LYLA King [address] [place], [place] [id number] [phone] Phoebe Ruelas Self - patient is the insured DENTAL Medicaid HP [address] [place] [address] [id number] Phoebe Ruelas Self - patient is the insured
--- OUTSIDE RECORDS SUMMARY | 2025-08-15 08:53 | XMS_ITS | Clinical Summary ---
Author Organization [facility] Address [address] [place] [address] Phone Care Team Providers Care Floor Plan Adjuster Name Role Phone Alfredo Sanders MD Primary Care Provider [phone] Allergies Active Allergy Reactions Criticality Noted Date [...] Foot Exam 11/06/2020 Diabetes: Hemoglobin A1C 04/23/2025 01/22/2025, 01/07 Influenza Vaccine (#1) 2025 , 07/22/2010, 08/26/2008 Pneumococcal Vaccine: Peds ( 0 to 5 Years) and At-Risk Patients (6 to 49 Years) Discontinued 02/29/2012 Insurance Care Teams Floor Plan Adjuster Relationship Specialty Start Date End Date Alfredo Sanders MD [address] [place], [place] PCP - General 10/19/20
[2025-08-15 09:24] LABS: Hematocrit 39.4 % (37.0-47.0); Hemoglobin 12.4 g/dl (12.0-16.0); Imm Gran Abs Auto 0.01 X10*3/uL (0.00-0.03); Imm Gran Pct Auto 0.1 % (0.0-0.4); Lymphocytes Absolute Auto 2.3 X10*3/uL (1.2-4.9); Mean Corpuscular HGB Conc 31.5 g/dl (31.0-35.0); Mean Corpuscular Hemoglobin 25.5 pg (27.0-33.0); Mean Corpuscular Volume 80.9 fL (80.0-98.0); NRBC Abs Auto 0.000 X10*3/uL (0.0-0.012); NRBC Pct Auto 0.0 /100WBC (0.0-0.2); Platelet Count 284 X10*3/uL (160-400); Red Blood Count 4.87 X10*6/uL (4.20-5.50); White Blood Count 6.8 X10*3/uL (4.8-10.8)
[2025-08-15 09:32] LABS: Anion Gap 13 (12-20); Blood Urea Nitrogen 53 mg/dL (9-16); Calcium 8.5 mg/dL (8.4-10.2); Carbon Dioxide 20 mmol/L (22-29); Chloride 110 mmol/L (96-108); Estimated Glomerular Filt Rate 14; Potassium 4.6 mmol/L (3.3-5.1); Sodium 138 mmol/L (135-145)
== END 2025-08-15 08:23 | disposition home or self-care (01) ==
LOC: HO.LAB 08:22
PROVIDERS: PCP Internal Medicine; Visit Provider Internal Medicine Hypertension Specialist
DX: N18.4 Chronic kidney disease, stage 4 (severe) (principal)
CPT/HCPCS: 36415; 80048; 85025

== ENCOUNTER 2025-08-21 11:01 | Outpatient (AMB) | payer OTHER, SELFPAY ==
[2025-08-21 11:09] VITALS: BP 148/80; PULSE 65; O2SAT 98; BMI 33.6
--- NOTE | 2025-08-21 11:09 | HO.NEPHOV ---
Vital Signs 08/21/25 11:09 08/21/25 11:21 Height 5 ft 6 in Weight 208 lb BMI 33.6 BP 148/80 H 138/70 Blood Pressure Location Rt brachial Rt brachial Position Sitting Pulse 65 Pulse Source Pulse Oximeter Pulse Oximetry (%) 98 Oxygen Delivery Method Room Air Intake Visit Reasons: 6 wls f/u w/ labs Veterinary Medicine Scientist Required: No Accompanied by: Self / Same As Patient Allergies cephalexin (From KEFLEX) Allergy (Intermediate, Verified 08/21/25 11:14) HIVES Medication List - Last Reconciled 08/21/25 by Ramin Johnston MD alcohol swabs 1 pad topical TID 90 days amlodipine 10 mg PO DAILY apixaban (Eliquis) 5 mg PO BID aspirin 81 mg PO DAILY bisacodyl (Dulcolax (bisacodyl)) 10 mg (2 x 5 mg) PO BEDTIME 90 days blood pressure monitor (Blood Pressure Kit) As directed blood sugar diagnostic (FreeStyle Lite Strips) 4 times a day dapagliflozin propanediol (Farxiga) 10 mg PO DAILY ezetimibe 10 mg PO DAILY fexofenadine 180 mg PO DAILY flash glucose scanning reader (FreeStyle Patrick 14 Day [place]) As directed flash glucose sensor (FreeStyle Patrick 14 Day Sensor kit) every 14 days FreeStyle Lite Meter (blood-glucose meter) 4 times a day NS glucose (Dex4 Glucose) 12 grams (3 x 4 gram) PO Q15M PRN hydrocortisone 1% 1 appl IN DAILY PRN insulin glargine U-300 conc (Toujeo Max U-300 SoloStar) 64 units (0.2133 mL) subcut DAILY 30 days insulin lispro 10-24 units20 units before meals (16 units light meals), + 2u for bg over 200, +4 unit bg >250, 10 u with snack. subcutaneously use as directed; 30 days lancets As directed 3x/day lansoprazole 15 mg PO DAILY 30 days latanoprost 0.005% 1 drp ophthalmic (eye) BEDTIME losartan 50 mg PO DAILY metoclopramide HCl (Reglan) 5 mg PO QIDACHS metoprolol succinate ER 200 mg PO DAILY mirtazapine 15 mg PO BEDTIME pen needle, diabetic 5 times a day ramelteon (Rozerem) 8 mg PO BEDTIME PRN rosuvastatin 20 mg PO BEDTIME tramadol 50 mg PO Q12H PRN 30 days HPI Comments Details: Jaclyn is a middle-aged woman with a history of longstanding diabetes mellitus complicated by CKD. She has stage IV CKD. Serum creatinine has been stable for the last several months. She is here for regular follow-up. She has history of recurrent hyperkalemia, this has been controlled since reducing losartan dose, she currently takes 50mg daily and is tolerating well. she reports some lower extremity swelling she states she has been eating canned soups with salt, though does make an effort to avoid salt with other meals and does a lot of cooking herself she notes some orthopnea at night, props herself up with her adjustable bed and manages well with this. She denies exertional dyspnea. she is drinking lots of fluids to stay well hydrated she states she has been more fatigued over the last several months she notes leg cramping that has worsened She was seen by general surgery for management of hypercalcemia and enlarged parathyroid gland on recent imaging. per surgery, given unclear if multiple hyperplasia or parathyroid source of hypercalcemia, she has been referred for formal endocrine evaluation, she is awaiting this appointment. she has been referred for transplant evaluation. She has also seen the dialysis educator. Pt is leaning toward HD rather than home dialysis should she need it. 08/20/24 ;Doing ok. Evaluated by Transplant 10/14/23; c/o low back pain - bilateral ; No urinary symptoms 12/09/24;Still with back pain;Para Thryoid surgery was postponed 02/11/25 Underwent salpingooophorectomy- recovered well Parathyroid surgery oh hold- next visit in few weeks 04/08/25 The patient is a 54-year-old female presenting with advanced kidney disease management. Her kidney function has remained stable, and she reports no significant changes in her condition. The patient has a history of hypertension, with current blood pressure readings at 138/78 mmHg, indicating controlled levels. She is currently taking Eliquis, which was recently reintroduced by Dr. Mohamud. The patient reports experiencing dizziness, which may be related to dehydration, as she has been feeling dehydrated more frequently. She denies taking diuretics and has been advised to increase fluid intake, especially in hot weather. The patient has a history of hypercalcemia, which is being monitored, and she is scheduled to see a specialist on the . The elevated calcium levels are related to her kidney condition, and surgical intervention may be considered if necessary. The patient also has a history of diabetes mellitus, with recent concerns about elevated HbA1c levels. She acknowledges dietary indiscretions, which may have contributed to the increase in her blood sugar levels. Peripheral artery disease is also a concern, with previous consultations with a vascular surgeon indicating potential arterial blockages. The patient underwent a procedure in January, and while some discomfort persists, it is expected to improve over time. 07/08/25 - The patient is a 55-year-old female presenting with chronic kidney disease. s/p Parathyroidectomy Ca being monitored by [facility] - Intermittent leg edema noted. - Blood pressure improved to 138/76 mmHg. - Hyperglycemia despite dietary changes. - Frequent muscle cramps in legs and toes. 08/21/25 The patient is a 55-year-old female presenting with a regular follow-up for advanced Chronic Kidney Disease due to diabetes. The patient's kidney function remains stable at 14%, unchanged since March, which is considered stable and not requiring dialysis at this time. She is currently on medications including amlodipine, Farxiga, and losartan for blood pressure management. The patient reports persistent hyperglycemia, with blood sugar levels reaching 220 mg/dL, despite attempts at dietary management. She attributes some of the difficulty in managing her blood sugar to her current living situation, which she finds stressful, but is planning to move to a less stressful environment soon. The patient experiences nausea, particularly in the mornings, and has noted a gradual weight gain from 200 to 208 pounds since March. She attributes some of this weight gain to stress and acknowledges the need to reduce carbohydrate intake to manage her weight and blood sugar levels better. The patient reports chronic constipation, for which she takes bisacodyl and Metamucil, and is advised to increase dietary fiber and fluid intake. She also experiences muscle cramps, particularly in her legs, PFS Medical History Gastroparesis Colon cancer screening Coronary artery dissection Type 2 diabetes mellitus with hyperglycemia Skin tag Atherosclerotic cardiovascular disease Calcific tendinitis of right shoulder Adhesive capsulitis of right shoulder Back pain Upper respiratory infection Arm pain Dizziness Type 2 diabetes mellitus with unspecified complications Dyspnea on exertion SOB (shortness of breath) Headache On anticoagulant therapy Hidradenitis suppurativa Pulmonary embolism Type 2 diabetes mellitus with chronic kidney disease Precordial chest pain Vitamin D deficiency HTN (hypertension) On beta jacqueline at home Axillary hidradenitis suppurativa Proliferative diabetic retinopathy associated with type 2 diabetes mellitus Diabetic polyneuropathy associated with type 2 diabetes mellitus Diabetic nephropathy associated with type 2 diabetes mellitus MCC (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 pylori infection Anxiety and depression Acute angle-closure glaucoma CVA (cerebral vascular accident) GERD (gastroesophageal reflux disease) Hypertension Coronary artery disease Hypercholesterolemia Obesity (BMI 30-39.9) Surgical History S/P removal of left ovary (~01/2025) Status post hysterectomy with oophorectomy History of hysterectomy History of surgery (03/21/23) Hx of excision of mass History of axillary surgery History of axillary surgery (08/21/20) History of esophagogastroduodenoscopy (EGD) History of angioplasty History of cardiac catheterization (~03/30/16) History of endometrial ablation Amputation of right index finger History of tubal ligation Family History Mother Type 2 diabetes mellitus Hypertension Maternal Grandmother Myocardial infarction Paternal Grandmother History of breast cancer Social History Household Members: None Housing: Apartment Are you a primary daycare teacher to a significant other at home: No Do you presently have visiting nurse or other home services: No Alcohol intake: never Comment: medicated, see MAR Patient Tobacco Use Status: Former Tobacco user Tobacco use type: Cigarette e-Cigarette/Vaping Use: Never Used Second Hand Smoke Exposure: Yes Substance Use Type: Marijuana service: No Current occupational status: unemployed Cognitive needs: No Hearing needs: Yes (partially deaf ) Vision needs: Yes Physical Exam Vital Signs: Last Vital Signs Pulse 65 08/21/25 11:09 BP 148/80 H 08/21/25 11:09 Pulse Ox 98 08/21/25 11:09 Oxygen Delivery Method Room Air 08/21/25 11:09 BMI result Body Mass Index 33.6 Results Reviewed Nephrology Results: Hgb, (12.0-16.0) 12.4 g/dl 08/15/25 WBC, (4.8-10.8) 6.8 X10*3/uL 08/15/25 Plt Count, (160-400) 284 X10*3/uL 08/15/25 Sodium, (135-145) 138 mmol/L 08/15/25 Potassium, (3.3-5.1) 4.6 mmol/L 08/15/25 Chloride, (96-108) 110 mmol/L H 08/15/25 Carbon Dioxide, (22-29) 20 mmol/L L 08/15/25 BUN, (9-16) 53 mg/dL H 08/15/25 Creatinine, (0.5-1.4) 3.36 mg/dL H 08/15/25 Calcium, (8.4-10.2) 8.5 mg/dL Δ 08/15/25 Renal US 01/31/22 Assessment & Plan Assessment & Plan (1) Chronic kidney disease, stage 4 (severe): Code(s): N18.4 - Chronic kidney disease, stage 4 (severe) Category: Medical (2) Hyperparathyroidism: Code(s): E21.3 - Hyperparathyroidism, unspecified Category: Surgical (3) Essential hypertension: Code(s): I10 - Essential (primary) hypertension Category: Medical (4) Diabetic nephropathy associated with type 2 diabetes mellitus: Code(s): E11.21 - Type 2 diabetes mellitus with diabetic nephropathy Category: Medical (5) Type 2 diabetes mellitus with chronic kidney disease: Code(s): E11.22 - Type 2 diabetes mellitus with diabetic chronic kidney disease Category: Medical Qualifiers: Diabetes mellitus continuous churn buttermaker insulin use: without continuous churn buttermaker use Chronic kidney disease stage: stage 3 (moderate) Chronic kidney disease stage 3 subtype: unspecified whether 3a or 3b Qualified Code(s): E11.22 - Type 2 diabetes mellitus with diabetic chronic kidney disease; N18.30 - Chronic kidney disease, stage 3 unspecified Plan Jaclyn has stage IV CKD due to underlying diabetic nephropathy. Renal function is at baseline/stable. Goal is to slow the progression of renal disease. Continue to avoid nephrotoxic agents including NSAIDs. Encouraged her to stay on low-sodium diet. Hemoglobin A1c should be maintained less than 7%. Discussed weight loss Blood pressure -acceptable. REcent increase in BP related to weight gain We discussed importance of weight loss as well. She has no evidence of anemia. Hemoglobin is stable s/p parathyroidectomy- Recheck Ca and PTH preemptive renal transplant evaluation. -not a candidate Pelvic MRI ordered due to pelvic mass Enhancing spiculated mass in the central pelvis measuring 3.2 x 3.0 x 2.6 cm which could represent a metastatic deposit. Correlation with oncologic history is recommended. CT of the chest, abdomen, and pelvis should be considered. s/p Salph[place] oophorectomy Cramping Can try Tonic water Add MgO 400 mg daily She has seen a dialysis nurse educator and leaning toward intermittent HD vs home PD, but will continue to consider. Orders: Orders Basic Metabolic Panel 6 Weeks N18.4 - Chronic kidney disease, stage 4 (severe) Parathyroid Hormone Intact 6 Weeks N18.4 - Chronic kidney disease, stage 4 (severe) Complete Blood Count Auto Diff 6 Weeks N18.4 - Chronic kidney disease, stage 4 (severe) Medications: New magnesium aspart,citrate,oxide 400 mg PO DAILY 90 caps 0RF Coding Level of Care Code Est Pt Level 4 (82270) Diagnoses Chronic kidney disease, stage 4 (severe) N18.4 Hyperparathyroidism E21.3 Essential hypertension I10 Diabetic nephropathy associated with type 2 diabetes mellitus E11.21 Type 2 diabetes mellitus with stage 3 chronic kidney disease, without long-term current use of insulin, unspecified whether stage 3a or 3b CKD E11.22; N18.30 Diabetes mellitus continuous churn buttermaker insulin use: without continuous churn buttermaker use Chronic kidney disease stage: stage 3 (moderate) Chronic kidney disease stage 3 subtype: unspecified whether 3a or 3b
[2025-08-21 11:21] VITALS: BP 138/70
--- OUTSIDE RECORDS SUMMARY | 2025-08-21 13:47 | XMS_ITS | Clinical Summary ---
Author Organization [facility] Address [address] [place] [address] Phone Care Team Providers Care Manager Freelance Name Role Phone Alfredo Sanders MD Primary Care Provider [phone] Allergies Active Allergy Reactions Criticality Noted Date [...] 24 Active blood-glucose,re ceiver,cont (FreeStyle Patrick 3 [place]) miscIndications: Type II or unspecified type diabetes mellitus with ophthalmic manifestations, uncontrolled(250 .52) ([facility] V24, [facility] V28) Use to monitor blood sugars. [...] diabetes mellitus with ophthalmic manifestations, uncontrolled(250 .52) ([facility] V24, [facility] V28) Apply 1 sensor and change every 15 days. USE TO CHECK BLOOD SUGAR AND CHANGE EVERY 15 DAYS 6 each 1 08/04/20 25 Active blood-glucose sensor (FreeStyle Patrick 3 Plus Sensor) deviceIndication s:Type II or unspecified type diabetes mellitus with ophthalmic manifestations, uncontrolled(250 .52) ([facility] V24, [facility] V28) Change sensor every 15 days. 6 each 1 01/23/20 25 025 Discontinued Active Problems Problem Noted Date Diagnosed Date History of parathyroidectomy 07/15/2025 Hyperparathyroidism ([facility] V24) 01/22/2025 Primary hypertension 01/22/2025 Stage 4 chronic kidney disease ([facility] V24, [facility] V28) 01/22/2025 PAD (peripheral artery disease) ([facility] V24) Chronic venous insufficiency 06/08/2018 Nuclear sclerosis 09/02/2014 Overview (09/02/2024): Dr Barnes note 09-06-11 Microalbuminuria 09/02/2014 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, not stated as uncontrolled(250.41) ([facility] V24, [facility] V28) 09/02/2014 Secondary diabetes mellitus with neurological manifestations, 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) ([facility] V24, [facility] V28) 09/02/2014 Diabetic neuropathy ([facility] V24, [facility] V28) 0 03/25/2011 Hyperlipidemia 07/21/2010 Carpal tunnel syndrome 11/24/2008 Overview (09/02/2024): Bilateral; L>R Uterine fibroid 08/26/2008 Stroke ([facility] V24, [facility] V28) 08/13/2008 Overview (09/02/2024): Left Cerebellar; 07/16; LV thrombus Myocardial infarct ([facility] V24, [facility] V28) Overview (09/02/2024): Inferior; Left Ventricular Thrombus;07/16; [place] Type II or unspecified type diabetes mellitus with ophthalmic manifestations, 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) ([facility] V24, [facility] V28) 06/23/2007 Iron deficiency anemia 12/26/2005 Encounters Date Type Department Care Team Description 07/15/2025 9:30 AM EDT Office Visit Endocrinology [address] [address] Maria E Ferrer PA Type II or unspecified type diabetes mellitus with ophthalmic manifestations, 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) ([facility] V24, [facility] V28) (Primary Dx); Stage 4 chronic kidney disease ([facility] V24, [facility] V28); Primary hypertension; Hyperlipidemia, unspecified hyperlipidemia type; [...] 07/29/2008 DX :Non-compliance with treatment Myocardial infarct ([facility] V24, [facility] V28) 08/13/2008 DX:Myocardial infarct ([facility]); COMMENT: Inferior; 07/16; [place] Stroke ([facility] V24, [facility] V28) 08/13/2008 DX:Stroke ([facility]); COMMENT: Left Cerebellar Tumors of body [...] 07/21/2010 DX:Other and unspecified hyperlipidemia Diabetic neuropathy ([facility] V24, [facility] V28) 03/25/2011 DX:Diabetic neuropathy ([facility]) Family History Medical History Relation Name Comments Breast cancer Paternal Grandmother cervic al cancer Blindness Neg Hx Cataracts Neg Hx Coronary artery disease Neg Hx no p remature CAD Glaucoma Neg Hx Macular degeneration Neg Hx Strabismus Neg Hx Relation Name Status Comments Paternal Grandmother Social History Tobacco Use Types Packs/Day Years Used Date Smoking Tobacco: Former Cigarettes 1.5 Q uit: 01/31/2011 Smokeless Tobacco: Never Tobacco [...] 12:00 PM EST Office Visit Endocrinology - [place] [address] [place], [place] [phone] Maria E Ferrer PA [address] [place] [address] Health Maintenance Due Date Last Done Comments [...] 08/30/2021 Cholesterol Screening (Lipid Panel) 09/11/2022 03/25/2011 Social Influencers of Health Screening 09/11/2022 Diabetes: [...] type diabetes mellitus with ophthalmic manifestations, 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) ([facility] V24, [facility] V28) URINE ALBUMIN CREATININE RATIO Routine 03/25/2011 ANNUAL BMP BLOOD TEST Routine 03/25/2011 LIPID PANEL Routine 03/25/2011 HEPATITIS C SCREENING Routine 01/13/2010 HIV SCREENING Routine 01/13/2010 PAP SMEAR Routine 01/13/2010 from Last 3 Months or Most Recently Relevant to Health Maintenance Results * (ABNORMAL) Hemoglobin A1c (01/22/2025 9:42 AM EDT) [facility] Hemoglobin A1C 8.8(H) <6.5 % LAB CHEMISTRY METHOD 01/22/2025 2:08 PM EDT [facility] Mean Bld Glu Estim. 206 mg/dL LAB CHEMISTRY METHOD 01/22/2025 2:08 PM EDT [facility] Blood Venous blood specimen / Unknown Venipuncture / Unknown 01/22/2025 9:42 AM EDT 01/22/2025 9:42 AM EDT Maria E BARRON LAB BLOOD ORDERABLES Final Resul t [facility] [address] [place] [address], * Urine Albumin Creatinine Ratio (03/25/2011) [facility] Urine Albumin Creatinine Ratio Abstracted Historical Provider HEALTH MAINTENANCE Final Result * Annual BMP Blood Test (03/25/2011) [facility] Annual BMP Blood Test Abstracted Historical Provider HEALTH MAINTENANCE Final Result * (ABNORMAL) Lipid panel (03/25/2011) [facility] LDL/HDL Ratio 6(A) 0 - 4 [...] Most Recently Relevant to Health Maintenance Insurance [facility] [employer] Care Teams Manager Freelance Relationship Specialty Start Date End Date Alfredo Sanders MD [address] [place] [address] [address] [facility] [place] [address] PCP - General Internal Medicine 04/01/19
--- OUTSIDE RECORDS SUMMARY | 2025-08-21 13:47 | XMS_ITS | Clinical Summary ---
Author Organization [facility] Address [address] [place] [address] Care Team Providers Care Hog Scalder Name Role Phone Unavailable Primary Care Provider [...] of right foot- Followed [facility] Essential hypertension 03/08/2016 Diabetes mellitus [...]
--- OUTSIDE RECORDS SUMMARY | 2025-08-21 13:47 | XMS_ITS | Patient Health Record ---
Author Organization [facility] Address [address] [place] [address] Support Name Relationship Address Phone Phoebe Ruelas Guarantor Unknown Unavailable Reason For Referral No Information Medications Medication SIG (Take, Route, Frequency, Duration) Notes Start Date End Date Status ALPRAZolam 1 MG take 1 tablet by ora l route 3 times every day Oral (Carlos-) Active OneTouch Ultra Test apply by [facility]Non-D rug; Combo Route) route In Vitro (Carlos-) [...] End Date LYLA King [address] [place], [place] [id number] [id number] Phoebe Ruelas Self - patient is the insured DENTAL Medicaid [place] [address] [place] [address] [phone] [id number] Phoebe Ruelas Self - patient is the insured
--- OUTSIDE RECORDS SUMMARY | 2025-08-21 13:47 | XMS_ITS | Clinical Summary ---
Author Organization [facility] Address [address] [place] [address] Phone Care Team Providers Care Senior Mainframe Programmer Analyst Name Role Phone Alfredo Sanders MD Primary Care Provider [phone] Allergies Active Allergy Reactions Criticality Noted Date [...] Years Used Date Smoking Tobacco: Former Cigarettes 0 Q uit: 10/09/2016 Smokeless Tobacco: Never Tobacco [...] 48 Years) Discontinued 02/29/2012 Insurance Care Teams Senior Mainframe Programmer Analyst Relationship Specialty Start Date End Date Alfredo Sanders MD [address] [place], [place] PCP - General 10/19/20
--- OUTSIDE RECORDS SUMMARY | 2025-08-21 13:47 | XMS_ITS | Clinical Summary ---
Author Organization [employer] Address [address] [place] [address] Care Team Providers Care Telegraph Office Manager Name Role Phone Unavailable Primary Care Provider [...] of 2 - PCV) 2019 12/26/2017, 02/29/2012 RSV Patients and Patients Aged 60 years or older (1 - Risk 50-74 years 1-dose series) 2019 Zoster Vaccines (1 of 2) 2019 Dental Oral Exam 08/22/2024 02/19/2024, , 06/26/2019, Additional history exists Tobacco Screening 02/18/2025 02/19/2024 COVID-19 Vaccine ( season) 2025 09/28/2021, 08/30/2021 Influenza Vaccine (#1) 2025 , 07/12/2023, 08/31/2022, Additional history exists Dental X-Ray: Full Mouth 02/19/2027 02/19/2024, 02/06 DTaP/Tdap/Td Vaccines (4 - Td or Tdap) 04/07/2027 04/07/2017, 02/29/2012, 12/04/2009 Hepatitis B Vaccines Completed 12/12/2024, 07/23/2024, 06/11/2024 [...] Most Recently Relevant to Health Maintenance Insurance [facility] ([facility] MEDICAID STAND ADULT
== END 2025-08-21 11:29 | disposition home or self-care (01) ==
LOC: HO.HKA 11:02
PROVIDERS: PCP Internal Medicine; Visit Provider Internal Medicine Hypertension Specialist
DX: I12.9 Hypertensive chronic kidney disease with stage 1 through stage 4 chronic kidney disease, or unspecified chronic kidney disease (principal); N18.4 Chronic kidney disease, stage 4 (severe); E21.3 Hyperparathyroidism, unspecified; E11.21 Type 2 diabetes mellitus with diabetic nephropathy; E11.22 Type 2 diabetes mellitus with diabetic chronic kidney disease; N18.30 Chronic kidney disease, stage 3 unspecified
CPT/HCPCS: 99214

== ENCOUNTER → 2025-08-21 11:01 | Outpatient (BNVA) | payer OTHER, SELFPAY | PROVIDERS: PCP Internal Medicine; Visit Provider Internal Medicine Hypertension Specialist | DX: N18.4 Chronic kidney disease, stage 4 (severe) (principal); E11.22 Type 2 diabetes mellitus with diabetic chronic kidney disease; E11.65 Type 2 diabetes mellitus with hyperglycemia; E11.69 Type 2 diabetes mellitus with other specified complication; E11.42 Type 2 diabetes mellitus with diabetic polyneuropathy; E11.3599 Type 2 diabetes mellitus with proliferative diabetic retinopathy without macular edema, unspecified eye; I12.9 Hypertensive chronic kidney disease with stage 1 through stage 4 chronic kidney disease, or unspecified chronic kidney disease; E21.3 Hyperparathyroidism, unspecified | CPT/HCPCS: 99212 ==

== ENCOUNTER 2025-09-08 15:26 | Outpatient (AMB) | payer OTHER, SELFPAY ==
--- NOTE | 2025-09-08 15:29 | MHC.PC.OV ---
Vital Signs 09/08/25 15:30 Height 5 ft 6 in Weight 208 lb BMI 33.6 BP 148/80 H Blood Pressure Location Rt brachial Position Sitting Pulse 75 Pulse Source Pulse Oximeter Pulse Oximetry (%) 97 Oxygen Delivery Method Room Air Intake Visit Reasons: DM Allergies cephalexin (From KEFLEX) Allergy (Intermediate, Verified 09/08/25 15:30) HIVES Tobacco use date assessed: 03/21/25 Dental Screening Dental Screen Date: 12/12/24 HPI HPI Comments History of Present Illness Details History of Present Illness The patient is a 55-year-old individual presenting for a follow-up visit for multiple chronic medical problems. The patient's past medical history is significant for obesity, coronary artery disease, history of CVA, hypertension, hypercholesterolemia, diabetes mellitus, peripheral vascular disease, history of pulmonary embolism, chronic kidney disease, and GERD. The patient has stable stage 4 chronic kidney disease secondary to diabetic nephropathy and follows with a watch and clock repair clerk. A pelvic MRI had shown a pelvic mass, which made the patient ineligible for a preemptive renal transplant, but this was later found to be a benign cyst and was robotically removed in January. Lab work from August 15 showed a creatinine of 3.36 and BUN of 53. The patient is also status post a 3.5-gland parathyroidectomy on June 16 for hyperparathyroidism. For diabetes, the patient follows with endocrinology and has an A1c of 9.0, which is unchanged since March. The patient's Toujeo dose was recently increased to 72 units, and the patient has a history of intolerance to GLP-1 agonists. The patient admits to not eating well. The patient reports new left shoulder pain since June which radiates down to the elbow with a buzzing sensation. The pain is worse at night, prevents sleeping on that side, and an X-ray revealed calcific tendinitis. The patient also developed right wrist pain with swelling since June, which may have started after an IV placement during surgery, and it affects the ability to write. The patient has been taking Tylenol and tramadol for the pain. Health maintenance includes an up-to-date bone density scan, a recent flu shot, and completion of the shingles vaccine series. A mammogram is currently due. The patient's last cholesterol check was in November 2024. Health Maintenance The patient was reminded that a mammogram is due. The patient was informed about the availability of the shingles vaccine. Social History - Functional Status: Pain in the left shoulder affects sleep, and pain in the right wrist has impacted the patient's ability to write. - Exercise: Reports a lack of exercise. - Nutritional Intake: Reports not eating well. Results - Labs (August 15): Creatinine 3.36 mg/dL, BUN 53 mg/dL, normal CBC. - Labs (Current): A1c 9.0%. - Imaging (Shoulder): X-ray showed calcific tendinitis. - Imaging (Knee, May): X-ray showed mild arthritis with no significant joint effusion. - Imaging (Spine, May): X-ray showed no significant degenerative changes. - Procedures: Bone density scan is up to date. [facility] Medical History (Updated 09/08/25 @ 16:09 by Alfredo Sanders MD) Lower back pain Thoracic back pain Right foot pain Bilateral knee pain Gastroparesis Colon cancer screening Coronary artery dissection Type 2 diabetes mellitus with hyperglycemia Skin tag Atherosclerotic cardiovascular disease Calcific tendinitis of right shoulder Adhesive capsulitis of right shoulder Back pain Upper respiratory infection Arm pain Dizziness Type 2 diabetes mellitus with unspecified complications Dyspnea on exertion SOB (shortness of breath) Headache On anticoagulant therapy Hidradenitis suppurativa Pulmonary embolism Type 2 diabetes mellitus with chronic kidney disease Precordial chest pain Vitamin D deficiency HTN (hypertension) On beta jacqueline at home Axillary hidradenitis suppurativa Proliferative diabetic retinopathy associated with type 2 diabetes mellitus Diabetic polyneuropathy associated with type 2 diabetes mellitus Diabetic nephropathy associated with type 2 diabetes mellitus custodial (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 pylori infection Anxiety and depression Acute angle-closure glaucoma CVA (cerebral vascular accident) GERD (gastroesophageal reflux disease) Hypertension Coronary artery disease Hypercholesterolemia Obesity (BMI 30-39.9) Surgical History S/P removal of left ovary (~01/2025) Status post hysterectomy with oophorectomy History of hysterectomy History of surgery (03/21/23) Hx of excision of mass History of axillary surgery History of axillary surgery (08/21/20) History of esophagogastroduodenoscopy (EGD) History of angioplasty History of cardiac catheterization (~03/30/16) History of endometrial ablation Amputation of right index finger History of tubal ligation Family History Mother Type 2 diabetes mellitus Hypertension Maternal Grandmother Myocardial infarction Paternal Grandmother History of breast cancer Social History Household Members: None Housing: Apartment Are you a primary healthcare prof to a significant other at home: No Do you presently have visiting nurse or other home services: No Alcohol intake: never Comment: medicated, see MAR Patient Tobacco Use Status: Former Tobacco user Tobacco use type: Cigarette e-Cigarette/Vaping Use: Never Used Second Hand Smoke Exposure: Yes Substance Use Type: Marijuana service: No Current occupational status: unemployed Cognitive needs: No Hearing needs: Yes (partially deaf ) Vision needs: Yes Questionnaire Thrive Questionnaire Date Thrive assessed: 03/19/25 I am a: Patient What is your living situation today?: I have a steady place to live Within the past 12 months, did the food you bought not last and you didn't have the money to get more?: Sometimes True Within the past 12 months, did you worry whether your food would run out before you got money to buy more?: Sometimes True Do you have trouble paying for medicines?: No Do you have trouble getting transportation to medical appointments?: No Do you have trouble paying your heating and electricity bill?: Yes Do you have trouble taking care of your child, family member or friend?: No Do you have trouble with day-to-day activities such as bathing, preparing meals, shopping, managing finances, etc.?: No Are you currently unemployed and looking for a job?: Yes Are you interested in more education?: No Please select the resources that you would like help with: Utilities Currently or been in a relationship where the following occur: No concerns reported THRIVE Score: 3 BRAXTON-7 AMB Questionnaire BRAXTON-7 Date BRAXTON - 7 assessed: 03/21/25 Source: Developed by Drs. Tushar Villar, Dinorah Ariza, Kobi Carver and colleagues, with an educational neto from [employer]. Review of Systems Narrative Review of Systems - Musculoskeletal: Reports left shoulder pain that radiates to the elbow with a buzzing sensation, worse at night. - Reports right wrist pain and swelling since June, which affects writing. - Reports some knee aching, which the patient attributes to a lack of exercise. - General: Reports poor sleep due to shoulder pain. - Gastrointestinal: Reports heartburn managed with medication. - ENT: Reports a history of a self-resolved ear problem following a surgery. Physical exam (Primary Care) Vital Signs: Last Vital Signs Pulse 75 09/08/25 15:30 BP 148/80 H 09/08/25 15:30 Pulse Ox 97 09/08/25 15:30 Oxygen Delivery Method Room Air 09/08/25 15:30 BMI result Body Mass Index 33.6 Tobacco/Smoking Status: Tobacco use Status Tobacco use date assessed 03/21/25 09/08/25 15:30 Patient Tobacco Use Status Former Tobacco user 09/08/25 15:30 Tobacco use type Cigarette 09/08/25 15:30 e-Cigarette/Vaping Use Never Used 09/08/25 15:30 Thrive Assessment: Date of Thrive Assessment Date Thrive assessed 03/19/25 09/08/25 15:30 Currently or been in a relationship where the following occur: No concerns reported Narrative Physical Exam - Right Upper Extremity: Swelling noted at the wrist. - Tenderness to palpation over the wrist and thumb tendon. - Radial pulse is palpable. Const General: alert; No acute distress Eyes Conjunctivae: conjunctivae normal Resp Auscultation: clear to auscultation bilaterally Cardio Rate: regular rate Rhythm: regular rhythm GI Inspection: Yes normal to inspection Extrem General: Yes normal to inspection and No edema Office Procedures Flu Questionnaire Does the patient have a severe egg allergy?: No Does the patient have severe life threatening allergies?: No Does the patient have a fever or illness today?: No Has the patient ever had Guillain-[place]hall Syndrome?: No Has the patient ever had any past reaction to a flu shot?: No Results AMB Hemoglobin A1c AMB Hemoglobin A1c 9.0 % Last Edit by Yari Spence CMA on 09/08/25 15:47 Immunizations Fluarix [id number] (PF) 45 mcg (15 mcg x 3)/0.5 mL IM syringe Performing Provider: Alfredo Sanders MD [facility] Administered by: Yari Spence CMA on 09/08/25 15:43 Dose Route Admin Location Dispensed Lot Number Expiration Date NDC [facility] 0.5 mL IM Right Deltoid 0.5 mL [id number] 04/07/26 [id number] [employer] VIS Given Date VIS Provided VIS Publication Date 09/08/25 Single Vaccine 24 Eligibility Eligibility Date Funding Source Not [facility] Eligible 09/08/25 Private Results Reviewed Results Reviewed: Laboratory Last Values Hgb A1c (Clinic) 9.0 % (4.0-6.0) H 09/08/25 15:31 Coding Level of Care Code Est Pt Level 4 (65826) Complex visit Add On G2211 Diagnoses Essential hypertension I10 Coronary artery disease involving [place] coronary artery of [place] heart without angina pectoris I25.10 Associated angina: without angina Coronary Disease-Associated Artery/Lesion type: [place] artery [place] vs. transplanted heart: [place] heart Moderate mixed hyperlipidemia not requiring statin therapy E78.2 Hyperlipidemia type: moderate mixed hyperlipidemia not requiring statin therapy Type 2 diabetes mellitus with hyperglycemia, with long-term current use of insulin E11.65; Z79.4 Diabetes mellitus manager intermediate insulin use: with manager intermediate use Obesity (BMI 30-39.9) E66.9 Gastroesophageal reflux disease without esophagitis K21.9 Esophagitis presence: without esophagitis Chronic kidney disease, stage 4 (severe) N18.4 Ovarian mass, right N83.8 Parathyroid adenoma D35.1 Left shoulder pain M25.512 Flexor tendinitis of right thumb M77.8 Assessment & Plan Assessment & Plan (1) Essential hypertension: Code(s): I10 - Essential (primary) hypertension Category: Medical Plan: Continue with blood pressure medication. Decrease salt intake and exercise on amlodipine 10 mg once a day losartan 50 mg once a day metoprolol 200 mg once a day (2) Coronary artery disease: Comment: stent placement March 2016, echo March 2019 normal LV function, impaired relaxation Chest pains on and off-not like when she had the MD. Sees Dr May. Intermediate risk for surgery. Code(s): I25.10 - Atherosclerotic heart disease of [place] coronary artery without angina pectoris Category: Medical Qualifiers: Associated angina: without angina Coronary Disease-Associated Artery/Lesion type: [place] artery [place] vs. transplanted heart: [place] heart Qualified Code(s): I25.10 - Atherosclerotic heart disease of [place] coronary artery without angina pectoris Plan: Control the cholesterol, weight, blood pressure, diabetes on aspirin and anticoagulation with Eliquis (3) Hyperlipidemia, unspecified: Code(s): E78.5 - Hyperlipidemia, unspecified Category: Medical Qualifiers: Hyperlipidemia type: moderate mixed hyperlipidemia not requiring statin therapy Qualified Code(s): E78.2 - Mixed hyperlipidemia Plan: Avoid fried foods, chicken skin, eggs, butter margarine, pastries and meat. Be it pork or beef they have a lot of cholesterol Zetia and rosuvastatin LDL goal of less than 70 and triglyceride of less than 150 (4) Type 2 diabetes mellitus with hyperglycemia: Comment: IDDM, Dr. Nguyen and Calista Code(s): E11.65 - Type 2 diabetes mellitus with hyperglycemia Category: Medical Qualifiers: Diabetes mellitus manager intermediate insulin use: with manager intermediate use Qualified Code(s): E11.65 - Type 2 diabetes mellitus with hyperglycemia; Z79.4 - custodial (current) use of insulin Plan: Decrease the amount of carbohydrate intake, pasta, bread, rice and potatoes are all sugar and that is aside from all the sweet stuff, remember that fruits are good but they are Sweet also. Patient follows up with endocrinology on Toujeo increased to 72 units Farxiga 10 mg once a day (5) Obesity (BMI 30-39.9): Code(s): E66.9 - Obesity, unspecified Category: Medical Plan: Diet and exercise (6) GERD (gastroesophageal reflux disease): Code(s): K21.9 - Gastro-esophageal reflux disease without esophagitis Category: Medical Qualifiers: Esophagitis presence: without esophagitis Qualified Code(s): K21.9 - Gastro-esophageal reflux disease without esophagitis Plan: Avoid the foods that causes that usually spicy foods, tomato products, juices, coffee, soda and foods that your sensitive to. After eating do not lie down, allow 3-4 hours before in lie down. And keep the head of bed above 30 degrees to avoid the acid from going up. (7) Chronic kidney disease, stage 4 (severe): Code(s): N18.4 - Chronic kidney disease, stage 4 (severe) Category: Medical Plan: Continue to follow-up with renal avoid NSAIDs controlled diabetes and hypertension (8) Ovarian mass, right: Comment: CT scan [facility] July 08 mass lesion adjacent to the right common iliac bifurcation 2.9 cm x 2.4 cm previously 2.7 x 2 cm. Ill-defined soft tissue mass is now seen within the presacral region measuring 3.2 cm x 2.6 cm. robotic surgery 01/2025 Code(s): N83.8 - Other noninflammatory disorders of ovary, fallopian tube and broad ligament Category: Medical Plan: s/p surgery 01/2025 (9) Parathyroid adenoma: Comment: Status post parathyroidectomy June Dr. Escalante Code(s): D35.1 - Benign neoplasm of parathyroid gland Category: Medical Plan: Status post parathyroidectomy. Will continue to monitor blood work (10) Left shoulder pain: Comment: 05/2025 calcific tendinitis Code(s): M25.512 - Pain in left shoulder Category: Medical (11) Flexor tendinitis of right thumb: Code(s): M77.8 - Other enthesopathies, not elsewhere classified Category: Medical Plan Plan Patient was informed and verbally consented to the use of an ambient scribe for clinic note documentation during this visit. 1. Type 2 Diabetes Mellitus The patient will continue to follow up with endocrinology. The plan is to continue Toujeo, which was recently increased to 72 units, and Farxiga 10 mg once a day. Diet and exercise were encouraged. The patient was advised to discuss the possibility of an insulin pump with the merchandiser retail representative. 2. Chronic Kidney Disease, Stage 4 The patient will continue to follow up with the renal team. The patient was advised to avoid NSAIDs and to control diabetes and hypertension. Blood work, including renal function and cholesterol, will be monitored in 3 months. 3. Calcific Tendinitis Of Left Shoulder The patient declined steroid injections for pain management. A referral for physical therapy will be placed for the left shoulder. The patient may continue using Tylenol and tramadol for pain relief. 4. Right Wrist Pain An X-ray of the right wrist will be ordered to further evaluate the pain. A referral for physical therapy for the right wrist will be placed. 5. Hypertension The patient will continue the current regimen of amlodipine 10 mg, losartan 50 mg, and metoprolol 200 mg once daily. 6. Coronary Artery Disease The patient will continue therapy with aspirin and Eliquis for anticoagulation. 7. Hypercholesterolemia The patient will continue rosuvastatin and Zetia, with an LDL goal of less than 70 and triglyceride goal of less than 150. A lipid panel will be checked in 3 months. 8. Gastroesophageal Reflux Disease The patient will continue with the current medication regimen as prescribed by the cnc service technician. Discussion Notes I reviewed the patient's extensive medical history and recent specialist consultations. I noted that the chronic kidney disease remains stable, and we will monitor labs in three months. We discussed the persistently elevated A1c of 9.0 and the recent increase in the Toujeo dose by endocrinology. Regarding the new musculoskeletal complaints, I explained that the shoulder X-ray showed calcific tendinitis. We discussed management options, including steroid injections, which the patient declined, and physical therapy, for which I will place a referral for both the shoulder and wrist. I am ordering a right wrist X-ray to further evaluate that pain. I advised the patient to discuss the option of an insulin pump with the merchandiser retail representative. We reviewed health maintenance, noting that the mammogram is due and discussed the benefits of the shingles vaccine. I provided a lab slip for follow-up testing in three months. Patient Instructions - Go for an X-ray of your right wrist. - A referral has been made for physical therapy for your left shoulder and right wrist. - Continue taking all your current medications as prescribed by your doctors. - You can use Tylenol or your prescribed tramadol for pain. - Do not take anti-inflammatory medicines like ibuprofen (Advil, Motrin) or naproxen (Aleve) because of your kidney condition. - Get your blood work done in three months. - You are due for a mammogram; please schedule one. - You can ask your pharmacy about getting the shingles vaccine if you are interested. - Talk to your air defense specialist (merchandiser retail representative) about whether an insulin pump is a good option for you. Orders: Orders AMB Hemoglobin A1c Today Z13.9 - Encounter for screening, unspecified Influenza [id number] Immunization Today Z23 - Encounter for immunization Complete Blood Count Auto Diff 3 Months E11.65 - Type 2 diabetes mellitus with hyperglycemia, Z79.4 - custodial (current) use of insulin Ferritin 3 Months E11.65 - Type 2 diabetes mellitus with hyperglycemia, Z79.4 - custodial (current) use of insulin Free T4 (Free Thyroxine) 3 Months E11.65 - Type 2 diabetes mellitus with hyperglycemia, Z79.4 - custodial (current) use of insulin Lipid Panel 3 Months E11.65 - Type 2 diabetes mellitus with hyperglycemia, E78.00 - Pure hypercholesterolemia, unspecified, Z79.4 - exterminator helper termite (current) use of insulin Vitamin D 25-OH Total 3 Months E11.65 - Type 2 diabetes mellitus with hyperglycemia, Z79.4 - custodial (current) use of insulin Reticulocyte Count 3 Months E11.65 - Type 2 diabetes mellitus with hyperglycemia, Z79.4 - exterminator helper termite (current) use of insulin Creatinine Urine 3 Months E11.65 - Type 2 diabetes mellitus with hyperglycemia, Z79.4 - exterminator helper termite (current) use of insulin Comprehensive Met. Panel 3 Months E11.65 - Type 2 diabetes mellitus with hyperglycemia, Z79.4 - custodial (current) use of insulin Hemoglobin A1c 3 Months E11.65 - Type 2 diabetes mellitus with hyperglycemia, Z79.4 - custodial (current) use of insulin Thyroid Stimulating Hormone 3 Months E11.65 - Type 2 diabetes mellitus with hyperglycemia, Z79.4 - custodial (current) use of insulin Vitamin B12 and Folate 3 Months E11.65 - Type 2 diabetes mellitus with hyperglycemia, Z79.4 - custodial (current) use of insulin IRON PROFILE 3 Months E11.65 - Type 2 diabetes mellitus with hyperglycemia, Z79.4 - custodial (current) use of insulin Microalbumin, Random (w Creat) 3 Months E11.65 - Type 2 diabetes mellitus with hyperglycemia, Z79.4 - custodial (current) use of insulin PT Evaluation and Treatment Today M25.512 - Pain in left shoulder, M77.8 - Other enthesopathies, not elsewhere classified XR wrist RT 2V Today M77.8 - Other enthesopathies, not elsewhere classified Medications: Changed From insulin glargine U-300 conc (Toujeo Max U-300 SoloStar) 64 units (0.2133 mL) subcut DAILY 30 days 6 mL 3RF E11.8 - Type 2 diabetes mellitus with unspecified complications To insulin glargine U-300 conc (Toujeo Max U-300 SoloStar) 72 units (0.24 mL) subcut DAILY 7.2 mL 3RF 30 days E11.8 - Type 2 diabetes mellitus with unspecified complications Refilled flash glucose sensor (FreeStyle Patrick 14 Day Sensor kit) every 14 days 2 ea 11RF E11.65 - Type 2 diabetes mellitus with hyperglycemia, E21.3 - Hyperparathyroidism, unspecified
[2025-09-08 15:30] VITALS: BP 148/80; PULSE 75; O2SAT 97; BMI 33.6
--- OUTSIDE RECORDS SUMMARY | 2025-09-08 18:25 | XMS_ITS | Clinical Summary ---
Author Organization [employer] Address [address] [place] [address] Care Team Providers Care Soc Analyst Name Role Phone Unavailable Primary Care Provider [...] Insurance [facility] ST[facility] ADULT
--- OUTSIDE RECORDS SUMMARY | 2025-09-08 18:25 | XMS_ITS | Clinical Summary ---
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 52) ([facility] V24, [facility] V28) Use to monitor blood sugars. 1 each 5 Active insulin lispro (HumaLOG KwikPen Insulin) 100 unit/mL injection pen Use three times a day before meals: <70 units, 71-100: 5 units, 101-150: 10 units, 151-200: 15 units, 201-250: 20 units, 251-300: 25 units, 301-350: 28 units, 351-400: 30 units, >400: use 32 units. Plus 3 units for heavier meals 5 Active insulin glargine U-300 conc (TOUJEO MAX SoloStar) 300 unit/mL (3 mL) CONCENTRATED injection pen Use 72 units at bedtime 5 Active insulin glargine U-300 conc (Toujeo Max U-300 SoloStar) 300 unit/mL (3 mL) CONCENTRATED injection pen Inject 64-68 Units under the skin at bedtime. 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 USE TO CHECK BLOOD SUGAR AND CHANGE EVERY 15 DAYS 6 each 1 5 Active Active Problems Problem Noted Date Diagnosed Date History of parathyroidectomy 07/15/2025 Hyperparathyroidism ([facility] V24) 01/22/2025 Primary hypertension 01/22/2025 Stage 4 chronic kidney disease ([facility] V24, [facility] V28) 01/22/2025 PAD (peripheral artery disease) ([facility] V24) Chronic venous insufficiency 06/08/2018 Nuclear sclerosis 09/02/2014 Overview (09/02/2024): Dr Barnes note 11-29-11 Microalbuminuria 09/02/2014 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, not stated as uncontrolled(250.41) ([facility] V24, [facility] V28) 09/02/2014 Secondary diabetes mellitus with neurological manifestations, 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) ([facility] V24, [facility] V28) 09/02/2014 Diabetic neuropathy ([facility] V24, [facility] V28) 0 03/25/2011 Hyperlipidemia 07/21/2010 Carpal tunnel syndrome 11/24/2008 Overview (09/02/2024): Bilateral; L>R Uterine fibroid 08/26/2008 Stroke ([facility] V24, [facility] V28) 08/13/2008 Overview (09/02/2024): Left Cerebellar; 07/16; LV thrombus Myocardial infarct ([facility] V24, [facility] V28) Overview (09/02/2024): Inferior; Left Ventricular Thrombus;07/16; [place] Type II or unspecified type diabetes mellitus with ophthalmic manifestations, 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) ([facility] V24, [facility] V28) 06/23/2007 Iron deficiency anemia 12/26/2005 Encounters Date Type Department Care Team Description 07/15/2025 9:30 AM EDT Office Visit [address] [address] Maria E Ferrer PA Type II or unspecified type diabetes mellitus with ophthalmic manifestations, 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) ([facility] V24, [facility] V28) (Primary Dx); Stage 4 chronic kidney disease ([facility] V24, [facility] V28); Primary hypertension; Hyperlipidemia, unspecified hyperlipidemia type; [...] Myocardial infarct ([facility] V24, [facility] V28) 08/13/2008 DX:Myocardial infarct (HCC); COMMENT: Inferior; 07/16; [place] Stroke ([facility] V24, [facility] V28) 08/13/2008 DX:Stroke ([facility]); COMMENT: Left Cerebellar Tumors of body [...] 07/21/2010 DX:Other and unspecified hyperlipidemia Diabetic neuropathy ([facility] V24, [facility] V28) 03/25/2011 DX:Diabetic neuropathy ([facility]) Family History Medical History Relation Name [...] 12:00 PM EST Office Visit Endocrinology - [place] [address] [place], [place] [phone] Maria E Ferrer PA [address], [place] Health Maintenance Due Date Last Done Comments [...] 10/29/2024 06/30/2023, 03/25/2011 Influenza Vaccine (#1) 2025 4, 07/12/2023, 08/31/2022, Additional history exists Diabetes: Blood [...] type diabetes mellitus with ophthalmic manifestations, 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) ([facility] V24, [facility] V28) URINE ALBUMIN CREATININE RATIO Routine 03/25/2011 ANNUAL BMP BLOOD TEST Routine 03/25/2011 LIPID PANEL Routine 03/25/2011 HEPATITIS C SCREENING Routine 01/13/2010 HIV SCREENING Routine 01/13/2010 PAP SMEAR Routine 01/13/2010 from Last 3 Months or Most Recently Relevant to Health Maintenance Results * (ABNORMAL) Hemoglobin A1c (01/22/2025 9:42 AM EDT) [facility] Hemoglobin A1C 8.8(H) <6.5 % LAB CHEMISTRY METHOD 01/22/2025 2:08 PM EDT [facility] Mean Bld Glu Estim. 206 mg/dL LAB CHEMISTRY METHOD 01/22/2025 2:08 PM EDT [facility] Blood Venous blood specimen / Unknown Venipuncture / Unknown 01/22/2025 9:42 AM EDT 01/22/2025 9:42 AM EDT Maria E BARRON LAB BLOOD ORDERABLES Final Resul t [facility] [address] [place] [address], * Urine Albumin Creatinine Ratio (03/25/2011) [facility] Urine Albumin Creatinine Ratio Abstracted [facility] Provider HEALTH MAINTENANCE Final Result * Annual BMP Blood Test (03/25/2011) [facility] Annual BMP Blood Test Abstracted [facility] Provider HEALTH MAINTENANCE Final Result * (ABNORMAL) Lipid panel (03/25/2011) [facility] LDL/HDL Ratio 6(A) 0 - 4 Triglycerides 162(A) 0 - 150 mg/dL Cholesterol 254(A) 0 - 200 mg/dL HDL 45 >=40 mg/dL LDL Cholesterol 177(A) 0 - 100 mg/dL Blood Venous blood specimen / Unknown Historical Provider LAB BLOOD ORDERABLES Cassie l Result * HIV Screening (01/13/2010) [facility] HIV Screening Abstracted Historical Provider HEALTH MAINTENANCE Final Result * Hepatitis C Screening (01/13/2010) Hepatitis C Screening Abstracted us Historical Provider HEALTH MAINTENANCE Final Result * Pap Smear (01/13/2010) Pap smear Abstracted ,Negative us Historical Provider HEALTH MAINTENANCE Final Result from Last 3 Months or Most Recently Relevant to Health Maintenance Insurance [facility] [employer] Care Teams Lithographer Apprentice Relationship Specialty Start Date End Date Alfredo Sanders MD [address] [place] [address] [address] [facility] [place] [address] PCP - General Internal Medicine 04/01/19
== END 2025-09-08 16:18 | disposition home or self-care (01) ==
LOC: HO.HMCH 15:27
PROVIDERS: PCP Internal Medicine; Visit Provider Internal Medicine
DX: I12.9 Hypertensive chronic kidney disease with stage 1 through stage 4 chronic kidney disease, or unspecified chronic kidney disease (principal); I25.10 Atherosclerotic heart disease of native coronary artery without angina pectoris; E78.2 Mixed hyperlipidemia; E11.65 Type 2 diabetes mellitus with hyperglycemia; Z79.4 Long term (current) use of insulin; E66.9 Obesity, unspecified; K21.9 Gastro-esophageal reflux disease without esophagitis; N18.4 Chronic kidney disease, stage 4 (severe); N83.8 Other noninflammatory disorders of ovary, fallopian tube and broad ligament; D35.1 Benign neoplasm of parathyroid gland; M25.512 Pain in left shoulder; M77.8 Other enthesopathies, not elsewhere classified; Z23 Encounter for immunization; Z13.9 Encounter for screening, unspecified

== ENCOUNTER → 2025-09-08 15:26 | Outpatient (BNVA) | payer OTHER, SELFPAY | PROVIDERS: PCP Internal Medicine; Visit Provider Internal Medicine | DX: E11.22 Type 2 diabetes mellitus with diabetic chronic kidney disease (principal); E11.21 Type 2 diabetes mellitus with diabetic nephropathy; E11.65 Type 2 diabetes mellitus with hyperglycemia; I12.9 Hypertensive chronic kidney disease with stage 1 through stage 4 chronic kidney disease, or unspecified chronic kidney disease; N18.4 Chronic kidney disease, stage 4 (severe); M25.512 Pain in left shoulder; M25.531 Pain in right wrist; I25.10 Atherosclerotic heart disease of native coronary artery without angina pectoris; E78.2 Mixed hyperlipidemia; E66.9 Obesity, unspecified; K21.9 Gastro-esophageal reflux disease without esophagitis; N83.8 Other noninflammatory disorders of ovary, fallopian tube and broad ligament; D35.1 Benign neoplasm of parathyroid gland; M77.8 Other enthesopathies, not elsewhere classified; Z23 Encounter for immunization; Z79.4 Long term (current) use of insulin; Z68.33 Body mass index [BMI] 33.0-33.9, adult | CPT/HCPCS: 83036; 90471; 90656; 99212 ==

== ENCOUNTER 2025-09-25 10:41 | Outpatient (REF) | payer OTHER, SELFPAY ==
--- NOTE | ~2025-09-25 | XR_ITS ---
EXAMINATION: XR WRIST, RIGHT CLINICAL INFORMATION: M77.8 - Other enthesopathies, not elsewhere classified COMPARISON: None available. TECHNIQUE: Four views of the right wrist. FINDINGS: Suboptimal large collimation limits evaluation . No visible acute fracture, dislocation or suspicious bony lesion. Anatomic alignment. No significant arthritis seen. No erosions. No suspicious soft tissue calcification. Vascular calcification. XR/XR wrist RT min 3V IMPRESSION: No acute osseous finding Electronically signed by: Phan Curtis MD 09/25/2025 03:26 PM EST
--- OUTSIDE RECORDS SUMMARY | 2025-09-25 13:38 | XMS_ITS | Clinical Summary ---
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 1 [...] diabetes mellitus with ophthalmic manifestations, uncontrolled(250. 52) ([facility] V24, [facility] V28) Apply 1 sensor and change every 15 days. 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) ([facility] V24, [facility] V28) (Primary Dx); Stage 4 chronic kidney disease ([facility] V24, [facility] V28); Primary hypertension; Hyperlipidemia, unspecified hyperlipidemia type; [...] 07/29/2008 DX :Non-compliance with treatment Myocardial infarct ([facility] V24, [facility] V28) 08/13/2008 DX:Myocardial infarct ([facility]); COMMENT: Inferior; 07/16; [place] Stroke ([facility] V24, [facility] V28) 08/13/2008 DX:Stroke (HCC); COMMENT: Left Cerebellar Tumors of body of [...] 07/21/2010 DX:Other and unspecified hyperlipidemia Diabetic neuropathy ([facility] V24, [facility] V28) 03/25/2011 DX:Diabetic neuropathy ([facility]) Family History Medical History Relation [...] 12:00 PM EST Office Visit Endocrinology - [place] [address] [place], [place] [phone] Maria E Ferrer PA [address] [place] [address] Health Maintenance Due Date Last Done Comments [...] mellitus with ophthalmic manifestations, 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) ([facility] V24, [facility] V28) URINE ALBUMIN CREATININE RATIO [...] LAB CHEMISTRY METHOD 01/22/2025 2:[address] [facility] Mean Bld Glu Estim. 206 mg/dL LAB CHEMISTRY METHOD 01/22/2025 2:[address] [facility] Blood Venous blood specimen / Unknown Venipuncture / Unknown 01/22/2025 9:42 AM EDT 01/22/2025 9:42 AM EDT Result [facility] Maria E BARRON LAB BLOOD ORDERABLES Final Resul t [facility] [address] [place] [address], [place] [phone] * Urine Albumin Creatinine Ratio (03/25/2011) [facility] Urine Albumin Creatinine Ratio Abstracted Result [facility] Provider HEALTH MAINTENANCE Final Result * Annual BMP Blood Test (03/25/2011) [facility] Annual BMP Blood Test Abstracted Result [facility] Provider HEALTH MAINTENANCE Final Result * (ABNORMAL) Lipid panel (03/25/2011) [facility] LDL/HDL Ratio 6(A) 0 - 4 Triglycerides 162(A) 0 - 150 mg/dL Cholesterol 254(A) 0 - 200 mg/dL HDL 45 >=40 mg/dL LDL Cholesterol 177(A) 0 - 100 mg/dL Blood Venous blood specimen / Unknown Result [facility] [place] MOE LAB BLOOD ORDERABLES Cassie l Result * HIV Screening (01/13/2010) [facility] HIV Screening Abstracted Result [facility] Historical Provider HEALTH MAINTENANCE Final Result * Hepatitis C Screening (01/13/2010) [facility] Hepatitis C Screening Abstracted Result [facility] Historical Provider HEALTH MAINTENANCE Final Result * Pap Smear (01/13/2010) [facility] Pap smear Abstracted ,Negative Result [facility] Historical Provider HEALTH MAINTENANCE Final Result from Last 3 Months or Most Recently Relevant to Health Maintenance Insurance [facility] PLAN Care Teams Fine Dining Server Relationship Specialty Start Date End Date Alfredo Sanders MD [address] [place] [address] [address] [facility] [place], [place] [id number] PCP - General Internal Medicine 04/01/19
--- OUTSIDE RECORDS SUMMARY | 2025-09-25 13:38 | XMS_ITS | Clinical Summary ---
Author Organization [employer] Address [address] [place] [address] Care Team Providers Care Occupational Health Nurse Supervisor Name Role Phone Unavailable Primary Care Provider [...] Most Recently Relevant to Health Maintenance Insurance [facility] ST[facility] ADULT
--- OUTSIDE RECORDS SUMMARY | 2025-09-25 13:38 | XMS_ITS | Patient Health Record ---
Author Organization [facility] Address [address] [place] [address] Support Name Relationship Address Phone Phoebe Ruelas Guarantor Unknown Unavailable Reason For Referral No Information Medications Medication SIG (Take, Route, Frequency, Duration) Notes Start Date End Date Status ALPRAZolam 1 MG take 1 tablet by ora l route 3 times every day Oral (Carlos-) Active OneTouch Ultra Test apply by [facility]Non-D rug; Combo Route) route In Vitro (Carlos-) [...] End Date LYLA King [address] [place], [place] [id number] [phone] [id number] Phoebe Ruelas Self - patient is the insured DENTAL Medicaid [employer] [address] [place] [address] [id number] Phoebe Ruelas Self - patient is the insured
--- OUTSIDE RECORDS SUMMARY | 2025-09-25 13:38 | XMS_ITS | Clinical Summary ---
Author Organization [facility] Address [address] [place] [address] Phone Care Team Providers Care Needle Loom Operator Name Role Phone Alfredo Sanders MD Primary Care Provider [phone] Allergies Active Allergy Reactions Criticality Noted Date [...] 49 Years) Discontinued 02/29/2012 Insurance Care Teams Needle Loom Operator Relationship Specialty Start Date End Date Alfredo Sanders MD [address] [place], [place] PCP - General 10/19/20
== END 2025-09-25 10:42 | disposition home or self-care (01) ==
LOC: HO.XRAY 10:41
PROVIDERS: PCP Internal Medicine; Visit Provider Internal Medicine
DX: M77.8 Other enthesopathies, not elsewhere classified (principal)
CPT/HCPCS: 73110